=== PATIENT | female | born 1970 | race Caucasian/White ===

== ENCOUNTER → 2017-12-25 08:22 | Outpatient (CLI) | payer OTHER, SELFPAY | PROVIDERS: Family Provider Family Medicine; PCP Family Medicine | DX: Z12.31 Encounter for screening mammogram for malignant neoplasm of breast (principal) | CPT/HCPCS: 77063; 77067 ==

== ENCOUNTER → 2018-11-30 09:55 | Outpatient (CLI) | payer OTHER, SELFPAY ==
--- NOTE | 2018-11-30 09:58 | VDLE_ITS ---
Reason For Study: Pain RIGHT LEFT CFV is compressible, spontaneous, phasic, GSV is normal. competent and demonstrates normal CFV is compressible, spontaneous, phasic, augmentation. competent, and demonstrates normal Procedure augmentation. Exam performed in department. FV is compressible, spontaneous, phasic, A preliminary report was called and/or faxed competent and demonstrates normal to Ana M Todd. augmentation. POP V is compressible, spontaneous, phasic, competent and demonstrates normal augmentation. T/P Trunk is compressible. PTV is compressible. LT PerV is compressible. Lt GSV in the thigh is absent Lt thigh varicosities are dilated and non compressible consistent with acute SVT. Interpretation Summary Deep veins of the left lower extremity are patent and compressible segmentally. There is no evidence of left lower extremity deep vein thrombosis. Valvular competence appears intact within the proximal deep venous system on the left . The left great saphenous vein is absent in the thigh, but patent and compressible below the knee. Acute superficial thrombophlebitis is noted involving superficial varicosities in the left thigh. Ordering Physician: Ana M Todd Referring Physician: Demetri Arnold Performed By: Lisa Juarez, GARTH, RVT
== END ==
PROVIDERS: Family Provider Family Medicine; PCP Family Medicine; Referring Provider Nurse Practitioner Family; Visit Provider Nurse Practitioner Family
DX: M79.605 Pain in left leg (principal)
CPT/HCPCS: 93971

== ENCOUNTER → 2018-12-31 06:57 | Outpatient (CLI) | payer OTHER, SELFPAY ==
--- NOTE | 2018-12-31 07:07 | BI_ITS ---
MAMMOGRAPHY - BILATERAL SCREENING 3-D TOMOSYNTHESIS REASON FOR EXAM: Female, 48 years old. Bilateral Screening 3-D tomosynthesis PERTINENT HISTORY: No significant family history. TECHNIQUE: 2-D mammograms and 3-D Tomosynthesis of the breast (s) were performed. CAD was performed. COMPARISON: 12/25/2017, 12/16/2016 FINDINGS: The breast composition is heterogeneously dense that can obscure small breast masses. Scattered benign calcifications are seen. No dense spiculated masses or suspicious microcalcifications are identified. No architectural distortion is identified. There is no skin thickening or retraction. There has been no significant change since the prior study. BI/SCREEN MAMM (CAD) W/ROCHELLE BILAT IMPRESSION: No mammographic signs of malignancy. Routine yearly mammograms recommended. ASSESSMENT CATEGORY: BIRADS Category 2: Benign. A letter regarding these results will be sent to the patient by the facility within 30 days. FOLLOW UP RECOMMENDATION: Yearly follow up mammogram recommended. (A) Approximately 10% of breast cancers are not detected by mammography. A normal mammogram should not delay biopsy of a clinically suspicious abnormality. Electronically Signed: Frank Noriega MD at 14:21 EDT Tel [phone], Service support ,
== END ==
PROVIDERS: Family Provider Family Medicine; PCP Family Medicine; Referring Provider Nurse Practitioner Family; Visit Provider Nurse Practitioner Family
DX: Z12.31 Encounter for screening mammogram for malignant neoplasm of breast (principal)
CPT/HCPCS: 77063; 77067

== ENCOUNTER → 2020-12-12 16:17 | Outpatient (CLI) | payer OTHER, SELFPAY ==
--- NOTE | 2020-12-12 16:19 | BI_ITS ---
MAMMOGRAPHY - BILATERAL SCREENING REASON FOR EXAM: Female, 50 years old. Routine annual screening examination. PERTINENT HISTORY: Screening TECHNIQUE: Digital bilateral breast rochelle (3D mammographic acquisition) in the CC and MLO projections. 2-D mediolateral oblique (MLO) and craniocaudad (CC) views of both breasts were obtained. CAD: Full Field Digital Mammography with Computer Added Detection was performed. COMPARISON: Previous mammogram obtained on 12/31/2018 FINDINGS: Breast Composition: Heterogeneously dense There are no dominant masses or suspicious calcifications. No other significant abnormalities are identified. BI/SCRN MAMM (CAD)W/ROCHELLE BILAT IMPRESSION: Stable bilateral screening mammogram. Yearly follow-up mammogram recommended. (A) ASSESSMENT CATEGORY: BIRADS Category 1: Negative. A letter regarding these results will be sent to the patient by the facility within 30 days. Approximately 10% of breast cancers are not detected by mammography. A normal mammogram should not delay biopsy of a clinically suspicious abnormality. [id number] Electronically Signed: Zackery Kovacs DO at 15:43 EDT Tel , Service support ,
== END ==
PROVIDERS: PCP Family Medicine; Referring Provider Nurse Practitioner Family; Visit Provider Nurse Practitioner Family
DX: Z12.31 Encounter for screening mammogram for malignant neoplasm of breast (principal)
CPT/HCPCS: 77063; 77067

== ENCOUNTER → 2021-02-09 | Outpatient (CLI) | payer OTHER, SELFPAY | END | disposition home or self-care (01) | LOC: LABSPEC 15:08 | PROVIDERS: PCP Family Medicine; Referring Provider Physician Assistant Surgical; Visit Provider Physician Assistant Surgical | DX: R09.81 Nasal congestion (principal) | CPT/HCPCS: 87635; U0005; U0003 ==

== ENCOUNTER → 2021-12-24 | Outpatient (CLI) | payer OTHER, SELFPAY ==
--- NOTE | 2021-12-24 13:20 | BI_ITS ---
MAMMOGRAPHY - BILATERAL SCREENING REASON FOR EXAM: Female, 51 years old. Routine annual screening examination. PERTINENT HISTORY: Non-contributory. TECHNIQUE: Digital bilateral breast rochelle (3D mammographic acquisition) in the CC and MLO projections. 2-D mediolateral oblique (MLO) and craniocaudad (CC) views of both breasts were obtained. CAD: Full Field Digital Mammography with Computer Added Detection was performed. COMPARISON: Mammogram from 12/12/2020, 12/31/2018. FINDINGS: Breast Composition: The breasts are heterogeneously dense, which may obscure small masses. There are no dominant masses or suspicious calcifications. No other significant abnormalities are identified. There has been no significant change since the prior study. BI/SCRN MAMM (CAD)W/ROCHELLE BILAT IMPRESSION: Stable bilateral screening mammogram. Yearly follow-up mammogram recommended. (A) ASSESSMENT CATEGORY: BIRADS Category 1: Negative. A letter regarding these results will be sent to the patient by the facility within 30 days. Approximately 10% of breast cancers are not detected by mammography. A normal mammogram should not delay biopsy of a clinically suspicious abnormality. Electronically Signed: Phillip Nuñez, at 16:40 EDT ,
== END | disposition home or self-care (01) ==
LOC: OPBI 13:16
PROVIDERS: PCP Family Medicine; Visit Provider Nurse Practitioner Family
DX: Z12.31 Encounter for screening mammogram for malignant neoplasm of breast (principal)
CPT/HCPCS: 77063; 77067

== ENCOUNTER → 2022-12-24 | Outpatient (CLI) | payer OTHER, SELFPAY ==
--- NOTE | 2022-12-24 08:34 | BI_ITS ---
MAMMOGRAPHY - BILATERAL SCREENING REASON FOR EXAM: Female, 52 years old. Routine annual screening examination. PERTINENT HISTORY: Non-contributory. TECHNIQUE: Digital bilateral breast rochelle (3D mammographic acquisition) in the CC and MLO projections. 2-D mediolateral oblique (MLO) and craniocaudad (CC) views of both breasts were obtained. CAD: Full Field Digital Mammography with Computer Added Detection was performed. COMPARISON: Comparison is made with prior study December 24, 2021 and December 12, 2020. FINDINGS: Breast Composition: The breasts are heterogeneously dense, which may obscure small masses. There are no dominant masses or suspicious calcifications. Stable small benign-appearing bilateral axillary lymph nodes. No other significant abnormalities are identified. There has been no significant change since the prior study. BI/SCRN MAMM (CAD)W/ROCHELLE BILAT IMPRESSION: Stable bilateral screening mammogram. Yearly follow-up mammogram recommended. (A) ASSESSMENT CATEGORY: BIRADS Category 2: Benign. A letter regarding these results will be sent to the patient by the facility within 30 days. Approximately 10% of breast cancers are not detected by mammography. A normal mammogram should not delay biopsy of a clinically suspicious abnormality. [id number] Electronically Signed: Rober Ortiz MD at 10:30 EDT ,
== END | disposition home or self-care (01) ==
LOC: OPBI 08:32
PROVIDERS: PCP Family Medicine; Referring Provider Nurse Practitioner Family; Visit Provider Nurse Practitioner Family
DX: Z12.31 Encounter for screening mammogram for malignant neoplasm of breast (principal)
CPT/HCPCS: 77063; 77067

== ENCOUNTER → 2024-01-02 | Outpatient (CLI) | payer OTHER, SELFPAY ==
--- NOTE | 2024-01-02 07:18 | BI_ITS ---
MAMMOGRAPHY - BILATERAL SCREENING REASON FOR EXAM: Female, 53 years old. Routine annual screening examination. PERTINENT HISTORY: Non-contributory. TECHNIQUE: Digital bilateral breast rochelle (3D mammographic acquisition) in the CC and MLO projections. 2-D mediolateral oblique (MLO) and craniocaudad (CC) views of both breasts were obtained. CAD: Full Field Digital Mammography with Computer Added Detection was performed. COMPARISON: Comparison is made with prior study of December 24, 2022 and December 24, 2021. FINDINGS: Breast Composition: The breasts are heterogeneously dense, which may obscure small masses. There are no dominant masses or suspicious calcifications. No other significant abnormalities are identified. There has been no significant change since the prior study. BI/SCRN MAMM (CAD)W/ROCHELLE BILAT IMPRESSION: Stable bilateral screening mammogram. Yearly follow-up mammogram recommended. (A) ASSESSMENT CATEGORY: BIRADS Category 1: Negative. A letter regarding these results will be sent to the patient by the facility within 30 days. Approximately 10% of breast cancers are not detected by mammography. A normal mammogram should not delay biopsy of a clinically suspicious abnormality. [id number] Electronically Signed: Rober Ortiz MD at 8:41 EDT ,
== END | disposition home or self-care (01) ==
LOC: OPBI 07:16
PROVIDERS: PCP Family Medicine; Referring Provider Nurse Practitioner Family; Visit Provider Nurse Practitioner Family
DX: Z12.31 Encounter for screening mammogram for malignant neoplasm of breast (principal)
CPT/HCPCS: 77063; 77067

== ENCOUNTER → 2025-01-07 | Outpatient (CLI) | payer BC, SELFPAY ==
--- NOTE | 2025-01-07 07:35 | BI_ITS ---
EXAM: SCRN MAMM (CAD)W/ROCHELLE BILAT DATE: 01/07/2025 CLINICAL HISTORY: F, Age 54 y/o , SCREENING TECHNIQUE: SCRN MAMM (CAD)W/ROCHELLE BILAT COMPARISON: Prior exam(s) dated 01/02/2024, 12/24/2022, 12/24/2021. FINDINGS: TISSUE DENSITY: The breasts are heterogeneously dense, which may obscure small masses. The mammogram demonstrates that the patient has dense breasts. Supplemental screening with whole breast ultrasound or MRI may be considered for further evaluation. Bilateral Breast Mammographic Findings: No significant masses, calcifications or other abnormalities are identified. BI/SCRN MAMM (CAD)W/ROCHELLE BILAT IMPRESSION: There is no mammographic evidence of malignancy. OVERALL FINAL ASSESSMENT BI-RADS 1: NEGATIVE. RECOMMENDATION: Routine annual follow-up in 1 Year. A letter with findings and recommendations will be mailed to the patient. Reading Location: [id number]
--- OUTSIDE RECORDS SUMMARY | 2025-01-07 07:44 | XMS RPT_ITS | CCD ---
Author Organization [facility] Care Team Providers Care Passenger T[employer] Inspector Name Role Phone Demetri Arnold Primary Care Provider [phone] Required, No Pcp Unavailable Unavailable Chidi Jack Unavailable NORMA WOO Attending Unavailable NORMA WOO Admitting Unavailable NORMA WOO Primary Care Unavailable NORMA WOO Attending Unavailable NORMA WOO Admitting Unavailable NORMA WOO Primary Care Unavailable Demetri Arnold MD Primary Care Provider [phone] DEMETRI ARNOLD Primary Care Unavailable LURDES AGUSTIN Attending Unavailable LURDES AGUSTIN Referring Unavailable DEMETRI ARNOLD Primary Care Unavailable Demetri Arnold DO Primary Care Provider Demetri Arnold MD Primary Care Provider Demetri Arnold DO Primary Care Provider PARVEEN TOBIAS Referring Unavailable DEMETRI ARNOLD Primary Care Unavailable Demetri Arnold DO Primary Care Provider Demetri Arnold MD Primary Care Provider [phone] Manish Vazquez MD Primary Care Provider Manish Vazquez MD Primary Care Provider [phone] Demetri Arnold DO Primary Care Provider JERRY PERALES Attending Unavailable DEMETRI ARNOLD Primary Care Unavailable Demetri Arnold MD Primary Care Provider [facility] Primary Care Provider Demetri Arnold MD Primary Care Provider MANISH VAZQUEZ Primary Care Unavailable CLAYTON, DEMETRI Attending Unavailable CLAYTON, DEMETRI Primary Care Unavailable PACI, MARANDA Us Referring Unavailable CLAYTON, DEMETRI L Primary Care Unavailable RIA FLANAGAN Referring U navailable CLAYTON, DEMETRI L Primary Care Unavailable CLAYTON, DEMETRI B Primary Care Unavailable SYSTEM, PROVIDER NOT IN Attending Unavaila ble CLAYTON, DEMETRI L Primary Care Unavailable PACI, MARANDA Magen Attending Unavailable CLAYTON, DEMETRI L Primary Care Unavailable ANGIE ROTH Attending Unavailable Micheal THOMAS Referring Unava ilable CLAYTON, DEMETRI L Primary Care Unavailable Micheal THOMAS Referring Unava ilable PACI, MARANDA Magen Attending Unavailable CLAYTON, DEMETRI L Primary Care Unavailable CLAYTON, DEMETRI L Primary Care Unavailable PACI, MARANDA Magen Attending Unavailable PACI, MARANDA Magen Referring Unavailable CLAYTON, DEMETRI L Primary Care Unavailable ANGIE ROTH Attending Unavailable PACI, MARANDA Magen Attending Unavailable CLAYTON, DEMETRI L Primary Care Unavailable PACI, MARANDA Magen Referring Unavailable CLAYTON, DEMETRI L Primary Care Unavailable PACI, MARANDA Magen Referring Unavailable BARRY PRESCOTT Attending Unavailable CLAYTON, DEMETRI L Primary Care Unavailable CLAYTON, DEMETRI L Primary Care Unavailable Micheal THOMAS Referring Unava ilable FRANKLIN, SEJAL Attending Unavailable TANANA LOGAN K Admitting Unavailable Micheal THOMAS Referring Unava ilable CLAYTON, DEMETRI L Primary Care Unavailable ANGIE ROTH Attending Unavailable CLAYTON, DEEMTRI L Primary Care Unavailable STANEFF, ADALI Attending Unavailable CLAYTON, DEMETRI L Primary Care Unavailable TREY CERON Attending Unavailable CLAYTON, DEMETRI L Primary Care Unavailable STANEFF, ADALI Attending Unavailable CLAYTON, DEMETRI L Primary Care Unavailable TREY CERON Attending Unavailable Micheal THOMAS Attending Unava ilable PACI, MARANDA Us Referring Unavailable CLAYTON, DEMETRI L Primary Care Unavailable Micheal THOMAS Referring Unava ilable STANEFF, ADALI Attending Unavailable CLAYTON, DEMETRI L Primary Care Unavailable STANEFF, ADALI Referring Unavailable STANEFF, ADALI Attending Unavailable CLAYTON, DEMETRI L Primary Care Unavailable DEMETRI ARNOLD Primary Care Unavailable ANA M SOTELO Attending Unavailable DEMETRI ARNOLD Primary Care Unavailable ANGIE ROTH Attending Unavailable Demetri Arnold Primary Care Unavailable Ana M Sotelo NP Referring Unavailable Peyton BRIAR CUTTER, Ana M Attending Unavailable Medications Current Medications Medication Drug Class(es) Dates Sig (Normalized) Sig (Original) acetaminophen 33.3 mg/ml oral solution (20 sources) Start: 07-14-2024 End: 08-27-2024 take 500 mg by mouth every six hours as needed acetaminophen (TYLENOL) 500 mg/15 mL liqd Take 15 mL by mouth every 6 hours as needed for pain. Do not exceed 5 doses in 24 hours. 1000 mL 07/14/2024 08/27/2024 Discontinued (Course of therapy completed) Start: 10-16-2023 End: 12-16-2023 take 500 mg by mouth every six hours as needed acetaminophen (TYLENOL) 500 mg/15 mL liqd Take 15 mL by mouth every 6 hours as needed for pain. Do not exceed 5 doses in 24 hours. 1000 mL 0 10/16/2023 12/16/2023 Discontinued Calcium Carbonate-Vit D-Min (CALCIUM 1200 PO) (2 sources) Calcium Carbonat e-Vit D-Min (CALCIUM 1200 PO) Take by mouth daily 0 Active calcium citrate 1000 mg oral tablet (7 sources) Start: 03-22-2013 take 1000 mg by mouth once daily Citracal Active 1000 MG PO DAILY March 22, 2013 1:00am take 1200 mg by mout h once daily CALCIUM CITRATE PO Take by mouth once daily. 1200 mg Active End: 07-04-2022 take 1 tablet by mouth once daily calcium citrate (Calcitrate) 950 (200 Ca) MG tablet Take 950 mg by mouth daily. 0 07/04/2022 Discontinued (Therapy completed) ciprofloxacin 500 mg oral tablet (1 source) Quinolone Antimicrobial Start: 07-29-2024 End: 08-03-2024 take 1 tablet by mouth twice daily ciprofloxacin HCl (CIPRO) 500 mg tablet Take 1 tablet by mouth two times a day for 5 days. 10 tablet 07/29/2024 08/03/2024 Active ergocalciferol 1.25 mg oral capsule (20 sources) Provitamin D2 Compound Start: 08-26-2017 End: 06-04-2024 take 1 capsule by mouth every week ergocalciferol, vitamin D2, (DRISDOL) 50,000 unit capsule Take 1 capsule by mouth once each week. 08/26/2017 Active Start: 09-23-2013 take 1 capsule by [facility] every week Ergocalciferol (Vitamin D2) (Vitamin D) 50,000 UNIT capsule Active 68682 UNIT PO Q7D September 23, 2013 12:00am Comment on above: Take 1 capsule by [facility] once each week. famotidine 20 mg oral tablet (8 sources) Histamine-2 Receptor Antagonist Start: 07-30-2013 take 20 mg by mouth twice daily Famotidine Active 20 MG PO TWICE A DAY July 30, 2013 12:00am Start: 03-22-2013 End: 03-30-2013 take 20 mg by mouth once daily Famotidine Discontinued 20 MG PO DAILY March 22, 2013 1:00am March 30, 2013 8:33am ferrous sulfate 325 mg oral tablet (20 sources) Start: 07-30-2013 Ferrous Sulfat e (Iron Supplement) 325 MG tablet Active 65 MG PO TWICE A DAY July 30, 2013 12:00am End: 06-11-2024 take 1 tablet by mouth in the morning ferrous sulfate 325 (65 Fe) MG tablet Take 65 mg by mouth in the morning and 65 mg in the evening. 06/11/2024 Discontinued (Med list cleanup) take 1 tablet by babatunde th twice daily ferrous sulfate 325 (65 FE) MG EC tablet Take 325 mg by mouth 2 times daily 0 Active Comment on above: Take 65 mg by mouth twice daily. levothyroxine sodium 0.1 mg oral tablet (20 sources) l-Thyroxine Start: 3 End: take 1 tablet by mouth once daily levothyroxine (SYNTHROID) 100 mcg tablet Take 1 tablet by mouth once daily. 04/02/2017 Active take 1 tablet by mouth once bolivar y Synthroid 100 mcg (0.1 mg) oral tablet ; 1 tab(s) orally once a day Quantity: 0 Refills: 0 Ordered: 12-Feb-2021 Tia Barros Generic Substitution Allowed Comment on above: Take 1 tablet by babatunde th once daily. metroNIDAZOLE 500 mg oral tablet (1 source) Nitroimidazole Antimicrobial Start: 07-30-19 End: 08-04-19 take 1 tablet by mouth four times daily metroNIDAZOLE (FLAGYL) 500 mg tablet Take 1 tablet by mouth four times daily for 5 days. 20 tablet 07/29/2024 08/03/2024 Active Multiple Vitamin (MULTI VITAMIN DAILY PO) (2 sources) take 1 tablet by mouth once daily Multiple Vitamin (MULTI VITAMIN DAILY PO) Take 1 tablet by mouth daily 0 Active Multiple Vitamin (multivitamin) capsule (2 sources) take 1 capsule by mouth once daily Multiple Vitamin (multivitamin) capsule Take 1 capsule by mouth daily. Active multivitamin capsule (2 sources) take 1 capsule by mouth once daily multivitamin capsule Take 1 capsule by mouth daily . 0 Active Multivitamin capsule (20 sources) take 1 capsule by mouth once daily Multivitamin capsule Take 1 capsule by mouth once daily. Suspended take 1 capsule by mouth once amrik ly Multivitamin capsule Take 1 capsule by mouth once daily. Active take 1 capsule by mouth once amrik ly Multivitamin capsule Take 1 capsule by mouth once daily. 0 Active Comment on above: Take 1 capsule by mo [facility] once daily. Multivitamin With Folic Acid (Thera) 1 TABLET tablet (4 sources) Start: 03-22-2013 take 1 tablet by mouth once daily Multivitamin With Folic Acid (Thera) 1 TABLET tablet Active 1 TABLET PO DAILY March 22, 2013 12:00am Start: 03-22-2013 take 1 tablet by [facility] once daily Multivitamin With Folic Acid (Thera) 1 TABLET tablet Active 1 TABLET PO DAILY March 22, 2013 1:00am omeprazole 40 mg delayed release oral capsule (20 sources) Proton Pump Inhibitor Start: 10-16-2023 End: 10-12-2024 take 1 capsule by mouth twice daily 30 minutes before breakfast omeprazole (PRILOSEC) 40 mg capsule Take 1 capsule by mouth two times a day. Open capsule sprinkle over applesauce and take 30 minutes before breakfast and 30 minutes before dinner 180 capsule 07/14/2024 Active 72 hr scopolamine 0.0139 mg/hr transdermal system (20 sources) Anticholinergic Start: 07-14-2024 End: 08-27-2024 scopolamine (TRANSDERM-SCOP) patch 1.5 mg/72 hr (delivers 1 mg over 3 days) Apply 1 Patch as directed every 72 hours. 4 Patch 07/14/2024 08/27/2024 Discontinued (Course of therapy completed) Start: 10-16-2023 End: 12-16-2023 scopolamine (TRANSDERM-SCOP) patch 1.5 mg/72 hr (delivers 1 mg over 3 days) Apply 1 Patch as directed every 72 hours. 4 Patch 0 10/16/2023 12/16/2023 Discontinued vitamin b12 1 mg sublingual tablet (4 sources) Vitamin B12 Start: 03-22-2013 Cyanocobalamin (Vitamin B-12) Active 2500 MCG SL EVERY OTHER DAY March 22, 2013 1:00am zolpidem tartrate 10 mg oral tablet (4 sources) gamma-Aminobuty perla Acid-ergic Agonist Start: 03-22-2013 take 1 tablet by mouth at bedtime as needed Zolpidem (Ambien) 10 MG tablet Active 10 MG PO AT BEDTIME NEEDED March 22, 2013 1:00am Completed/Discontinued Medications Medication Drug Class(es) Dates Sig (Normalized) Sig (Original) 12 hr buPROPion hydrochloride 150 mg extended release oral tablet (5 sources) Aminoketone Start: 07-18-2023 End: 10-16-2023 take 1 tablet by mouth twice daily buPROPion SR (WELLBUTRIN SR) 150 mg 12 hr tablet Take 1 tablet by mouth two times a day. 180 tablet 0 07/18/2023 10/16/2023 Discontinued (Clinical Decision) Comment on above: Take 1 tablet by babatunde th two times a day. calcium carbonate 1500 mg oral tablet (15 sources) End: 05-14-2022 take 1 tablet by mouth in the morning calcium carbonate 1500 (600 Ca) MG tablet Take 1,200 Units by mouth in the morning. 0 05/14/2022 Discontinued (Med list cleanup) End: 02-15-2022 take 1 tablet by mouth once daily calcium carbonate (CALTRATE) 600 mg calcium (1,500 mg) tab Take 1,200 Units by mouth once daily. 0 02/15/2022 Discontinued Comment on above: Take 1,200 Units by mouth once daily. calcium citrate/vitamin D3 (CALCIUM CITRATE + D ORAL) (20 sources) End: 12-16-2023 take 1200 mg by mouth once daily calcium citrate/vitamin D3 (CALCIUM CITRATE + D ORAL) Take 1,200 mg by mouth once daily. 0 12/16/2023 Discontinued take 1200 mg by mouth once daily calcium citrate/vitamin D3 (CALCIUM CITRATE + D ORAL) Take 1,200 mg by mouth once daily. 0 Active Comment on above: Take 1,200 mg by babatunde th once daily. 1 ml fentaNYL 0.05 mg/ml injection (1 source) Opioid Agonist Start : 07-28 End: 07-29 take 50 ug intravenously every two hours as needed 50 mcg, INTRAVENOUS, EVERY 2 HOURS NEEDED, Starting on Fri07/28/24 at 1448, Until Fri07/29/24 at 0207, Moderate Pain (4-6) - Parenteral, Recovery or Phase I (only) fosaprepitant 150 mg in NaCl 0.9% 250 mL (EMEND) (1 source) Start : 07-28 End: 07-28 150 mg, INTRAVENOUS, Administer over 30 Minutes, ONCE, 1 dose, On Fri07/28/24 at 1130, Approx Total Volume: mL EXP: Refrigerate, Preprocedure Hydroxychloroquine (20 sources) Antimalarial, Antirheumatic Agent Start : 03-29 End: 06-11 take 1 tablet by mouth once daily at mealtime Hydroxychloroquine Sulfate 300 MG tablet TAKE 1 TABLET BY MOUTH WITH FOOD or milk ONCE DAILY 03/29/2023 06/11/2024 Discontinued (Med list cleanup) Start: 03-29-2023 take 1 tablet by babatunde th once daily at mealtime Hydroxychloroquine Sulfate 300 MG tablet TAKE 1 TABLET BY MOUTH WITH FOOD or milk ONCE DAILY 03/29/2023 Active Start: 03-29-2023 take 1 tablet by babatunde th once daily at mealtime Hydroxychloroquine Sulfate 300 MG tablet TAKE 1 TABLET BY MOUTH WITH FOOD or milk ONCE DAILY 0 03/29/2023 Active Start: 06-16-2021 End: 05-21-2023 hydroxychloroquine (Plaqueni l) 200 MG tablet Take 300 mg by mouth in the morning. 0 06/16/2021 05/21/2023 Discontinued (Therapy completed) Start: 10-19-2018 End: 12-16-2023 take 1 tablet by mouth once daily at mealtime hydrOXYchloroQUINE (PLAQUENIL) 200 mg tablet TAKE 1 & 1/2 TABLETS WITH FOOD OR MILK ONCE A DAY ORALLY 30 DAYS 0 06/16/2021 Active Comment on above: Take 300 mg by mouth once daily. Take 200 mg by mouth once daily. mupirocin 0.02 mg/mg topical ointment (1 source) RNA Synthetase Inhibitor Antibacterial Start: 023 End: 023 mupirocin (Bactroban) 2 % ointment APPLY 2X DAILY TO AFFECTED AREA INSIDE NOSE UNTIL AREA RESOLVES 0 05/27/2022 07/04/2022 Discontinued (Therapy completed) 2 ml ondansetron 2 mg/ml injection (20 sources) Serotonin-3 Receptor Antagonist Start: 025 End: take 4 mg intravenously every six hours as needed 4 mg, INTRAVENOUS, EVERY 6 HOURS NEEDED, Starting on Fri07/28/24 at 1448, Until Makayla 07/29/24 at 0207, Nausea/Vomiting - First Line - Parenteral, Give IV push over 2 minutes, Recovery or Phase I (only) Start: 07-28-2024 End: 07-28-2024 8 mg, INTRAVENOUS, ONCE, 1 d ose, On Fri07/28/24 at 1130, Give IV push over 2 minutes, Preprocedure Start: 07-14-2024 End: 08-27-2024 take 1 tablet by mouth every eight hours as needed ondansetron orally disintegrating (ZOFRAN ODT) 8 mg disintegrating tablet Take 1 tablet by mouth every 8 hours as needed for nausea/vomiting. 20 tablet 07/14/2024 08/27/2024 Discontinued (Course of therapy completed) Start: 10-16-2023 End: 12-16-2023 take 1 tablet by mouth every eight hours as needed ondansetron orally disintegrating (ZOFRAN ODT) 8 mg disintegrating tablet Take 1 tablet by mouth every 8 hours as needed for nausea/vomiting. 20 tablet 0 10/16/2023 12/16/2023 Discontinued prochlorperazine 5 mg/ml injectable solution (1 source) Phenothiazine Start: 07-28-2024 End: 07-29-2024 take 10 mg intravenously every four hours as needed 10 mg, INTRAVENOUS, EVERY 4 HOURS NEEDED, Starting on 07/28/24 at 1448, Until Makayla 07/29/24 at 0207, Nausea/Vomiting - Second Line - Parenteral, Protect From Light, Recovery or Phase I (only) semaglutide, weight loss, (WEGOVY) 0.25 mg/0.5 mL pen injector (5 sources) Start: 06-03-2023 End: 10-16-2023 inject 0.5 mL by subcutaneous injection every week semaglutide, weight loss, (WEGOVY) 0.25 mg/0.5 mL pen injector Inject 0.5 mL subcutaneously one time a week. 4 mL 0 06/03/2023 10/16/2023 Discontinued (Availability) Start: 06-03-2023 inject 0.5 mL by sub cutaneous injection every week semaglutide, weight loss, (WEGOVY) 0.25 mg/0.5 mL pen injector Inject 0.5 mL subcutaneously one time a week. 4 mL 0 06/03/2023 Active Comment on above: Inject 0.5 mL subcut aneously one time a week. sucralfate 1000 mg oral tablet (20 sources) Aluminum Complex Start: 07-16-2024 End: 10-20-2024 CARAFATE [address] 1 tablet in cup with 15ml-30ml warm water. Allow to dissolve into a slurry and drink. Repeat FOUR times daily as directed. Start on 07/30/24. 120 tablet 2 07/16/2024 10/20/2024 Discontinued (Course of therapy completed) Start: 07-14-2024 End: 10-12-2024 take 10 mL by mouth four times daily sucralfate (CARAFATE) 100 mg/mL suspension Take 10 mL by mouth four times daily. start on 07/30/2024 1200 mL 2 07/14/2024 07/16/2024 Discontinued Start: 10-23-2023 End: 02-22-2024 take 1 tablet by mouth four times daily sucralfate (CARAFATE) 1 gram tablet Take 1 tablet by mouth four times daily. 360 tablet 11/24/2023 02/22/2024 Start: 10-16-2023 End: 01-14-2024 take 10 mL by mouth four times daily sucralfate (CARAFATE) 100 mg/mL suspension Take 10 mL by mouth four times daily. 1200 mL 2 10/16/2023 10/23/2023 Discontinued (Cost of medication) topiramate 25 mg oral tablet (13 sources) Start: 02-15-2022 End: 12-09-2022 topiramate (TOPAMAX) 25 mg tablet Take 1 tablet with dinner. After 2 weeks, if tolerating well, increase to 2 tablets with dinner. 60 tablet 2 02/15/2022 12/09/2022 Discontinued Comment on above: Take 1 tablet with d inner. After 2 weeks, if tolerating well, increase to 2 tablets with dinner. Problems Active Problems Problem Classification Problem Date Documented Da te Episodic/Chronic Administrative/social admission (5 sources) Persons encountering health services in other specified circumstances; Translations: [Dietary counseling and surveillance] Onset: 4 Episodic Complications of surgical procedures or medical care (20 sources) Complication of surgical procedure; Translations: [Other complications of other bariatric procedure] Onset: 4 Episodic E Codes: Adverse effects of medical care (2 sources) Surgical operation with anastomosis, bypass or graft as the cause of abnormal reaction of the patient, or of later complication, without mention of misadventure at the time of the procedure; Translations: [Complications of gastric bypass surgery] Onset: 5 Episodic Esophageal disorders (20 sources) Gastroesophageal reflux disease; Translations: [Gastro-esophageal reflux disease without esophagitis] Onset: 5 Resolved: 3 12-13-2014 Chronic Fracture of lower limb (11 sources) Closed fracture of distal tibia and distal fibula; Translations: [Other fracture of upper and lower end of right fibula, initial encounter for closed fracture] Episodic Miscellaneous mental health disorders (5 sources) Psychosomatic factor in physical condition; Translations: [Psychological and behavioral factors associated with disorders or diseases classified elsewhere] 11-06-2023 Chronic Nutritional deficiencies (20 sources) Vitamin D deficiency; Translations: [Vitamin D deficiency, unspecified] Onset: 5 12-13-2014 Chronic Osteoarthritis (20 sources) Osteoarthritis; Translations: [Unspecified osteoarthritis, unspecified site] Onset: 5 12-13-2014 Chronic Other female genital disorders (20 sources) Complex endometrial hyperplasia; Translations: [Benign endometrial hyperplasia] Onset: 4 07-01-2019 Chronic Other gastrointestinal disorders (12 sources) Abnormal intestinal absorption; Translations: [Intestinal malabsorption, unspecified] Chronic Other gastrointestinal disorders (1 source) Intestinal malabsorption, unspecified; Translations: [Impaired intestinal absorption] Onset: 5 Chronic Other gastrointestinal disorders (1 source) H/O: GIT by-pass; Translations: [Bariatric surgery status] Episodic Other gastrointestinal disorders (9 sources) Bariatric surgery status; Translations: [S/P gastric bypass] Onset: 2 Episodic Other gastrointestinal disorders (2 sources) History of Armijo's esophagus; Translations: [Personal history of other diseases of the digestive system] Episodic Other gastrointestinal disorders (8 sources) History of bariatric surgical procedure; Translations: [Bariatric surgery status] 10-16-2023 Episodic Other injuries and conditions due to external causes (2 sources) Injury of right ankle; Translations: [Unspecified injury of right ankle, initial encounter] Episodic Other liver diseases (10 sources) Steatosis of liver; Translations: [Fatty (change of) liver, not elsewhere classified] 03-25-2023 Chronic Other liver diseases (1 source) Fatty (change of) liver, not elsewhere classified; Translations: [Hepatic steatosis] Onset: 5 Chronic Other nervous system disorders (3 sources) Walking difficulty due to ankle and foot; Translations: [Difficulty in walking, not elsewhere classified] Chronic Other non-traumatic joint disorders (4 sources) Acute ankle pain; Translations: [Pain in right ankle and joints of right foot] Episodic Other nutritional; endocrine; and metabolic disorders (20 sources) Hypocalcemia; Translations: [Hypocalcemia] Onset: 6 Resolved: 3 01-04-2016 Chronic Other nutritional; endocrine; and metabolic disorders (20 sources) Morbid obesity; Translations: [Morbid (severe) obesity due to excess calories] Onset: 0 12-13-2019 Chronic Other nutritional; endocrine; and metabolic disorders (14 sources) Severe obesity; Translations: [Morbid (severe) obesity due to excess calories] Chronic Other nutritional; endocrine; and metabolic disorders (1 source) Obese class III; Translations: [Morbid (severe) obesity due to excess calories] Chronic Other nutritional; endocrine; and metabolic disorders (2 sources) Morbid (severe) obesity due to excess calories; Translations: [Class 3 severe obesity due to excess calories without serious comorbidity with body mass index (BMI) of 40.0 to 44.9 in adult ([facility])] Onset: 2 Chronic Other nutritional; endocrine; and metabolic disorders (1 source) Body mass index (BMI) 40.0-44.9, adult; Translations: [Class 3 severe obesity due to excess calories without serious comorbidity with body mass index (BMI) of 40.0 to 44.9 in adult ([facility])] Onset: 2 Chronic Other nutritional; endocrine; and metabolic disorders (5 sources) Body mass index 40+ - severely obese; Translations: [Morbid (severe) obesity due to excess calories] Chronic Other nutritional; endocrine; and metabolic disorders (18 sources) Obesity caused by energy imbalance; Translations: [Other obesity due to excess calories] 10-16-2023 Chronic Other nutritional; endocrine; and metabolic disorders (2 sources) Body mass index 30+ - obesity; Translations: [Body mass index (BMI) 39.0-39.9, adult] 10-16-2023 Chronic Other nutritional; endocrine; and metabolic disorders (3 sources) Other specified metabolic disorders; Translations: [Other disorders of lipoid metabolism] Onset: 5 01-22-2024 Chronic Other nutritional; endocrine; and metabolic disorders (2 sources) Obesity; Translations: [Class 1 obesity with body mass index (BMI) of 33.0 to 33.9 in adult, unspecified obesity type, unspecified whether serious comorbidity present] 04-21-2024 Chronic Other nutritional; endocrine; and metabolic disorders (4 sources) Other obesity due to excess calories; Translations: [Class 1 obesity due to excess calories with body mass index (BMI) of 31.0 to 31.9 in adult, unspecified whether serious comorbidity present] Onset: 4 Chronic Other nutritional; endocrine; and metabolic disorders (1 source) Body mass index (BMI) 31.0-31.9, adult; Translations: [Class 1 obesity due to excess calories with body mass index (BMI) of 31.0 to 31.9 in adult, unspecified whether serious comorbidity present] Onset: 5 Chronic Other nutritional; endocrine; and metabolic disorders (1 source) Body mass index (BMI) 34.0-34.9, adult; Translations: [Class 1 obesity due to excess calories with body mass index (BMI) of 34.0 to 34.9 in adult, unspecified whether serious comorbidity present] Onset: 5 Chronic Other nutritional; endocrine; and metabolic disorders (1 source) Body mass index (BMI) 35.0-35.9, adult; Translations: [Class 2 severe obesity due to excess calories with serious comorbidity and body mass index (BMI) of 35.0 to 35.9 in adult ([facility])] Onset: 5 Chronic Other nutritional; endocrine; and metabolic disorders (1 source) Body mass index (BMI) 33.0-33.9, adult; Translations: [Class 1 obesity due to excess calories with body mass index (BMI) of 33.0 to 33.9 in adult, unspecified whether serious comorbidity present] Onset: 5 Chronic Other nutritional; endocrine; and metabolic disorders (1 source) Body mass index (BMI) 38.0-38.9, adult; Translations: [Class 2 obesity due to excess calories with body mass index (BMI) of 38.0 to 38.9 in adult, unspecified whether serious comorbidity present] Onset: 4 Chronic Other nutritional; endocrine; and metabolic disorders (8 sources) Weight gain; Translations: [Abnormal weight gain] Episodic Other nutritional; endocrine; and metabolic disorders (5 sources) Weight increased; Translations: [Abnormal weight gain] 05-17-2024 Episodic Other nutritional; endocrine; and metabolic disorders (2 sources) Abnormal weight gain; Translations: [Weight gain following gastric bypass surgery] Onset: 5 Episodic Other screening for suspected conditions (not mental disorders or infectious disease) (20 sources) Patient encounter status; Translations: [Encounter for screening mammogram for malignant neoplasm of breast] Onset: 5 Episodic Other upper respiratory disease (4 sources) Respiratory tract congestion; Translations: [Nasal congestion] 02-09-2021 Episodic Spondylosis; intervertebral disc disorders; other back problems (1 source) Acute low back pain; Translations: [Acute bilateral low back pain without sciatica] 06-05-2023 Episodic Systemic lupus erythematosus and connective tissue disorders (20 sources) Autoimmune disease; Translations: [Systemic involvement of connective tissue, unspecified] Onset: 9 11-09-2018 Chronic Thyroid disorders (20 sources) Hypothyroidism; Translations: [Hypothyroidism, unspecified] Onset: 5 12-13-2014 Chronic Unclassified (2 sources) ANTIBODY INFUSION 02-12-2021 Comment on above: ANTIBODY INFUSION Unclassified (1 source) Reassessment Onset: 5 Unclassified (1 source) Class 1 obesity due to excess calories with body mass index (BMI) of 31.0 to 31.9 in adult, unspecified whether serious comorbidity present; Translations: [Class 1 obesity due to excess calories with body mass index (BMI) of 31.0 to 31.9 in adult, unspecified whether serious comorbidity present] Onset: 5 Unclassified (1 source) Class 1 obesity due to excess calories with body mass index (BMI) of 34.0 to 34.9 in adult, unspecified whether serious comorbidity present; Translations: [Class 1 obesity due to excess calories with body mass index (BMI) of 34.0 to 34.9 in adult, unspecified whether serious comorbidity present] Onset: 5 Unclassified (1 source) Class 2 severe obesity due to excess calories with serious comorbidity and body mass index (BMI) of 35.0 to 35.9 in adult (HCC); Translations: [Class 2 severe obesity due to excess calories with serious comorbidity and body mass index (BMI) of 35.0 to 35.9 in adult (HCC)] Onset: 5 Unclassified (1 source) Class 1 obesity due to excess calories with body mass index (BMI) of 33.0 to 33.9 in adult, unspecified whether serious comorbidity present; Translations: [Class 1 obesity due to excess calories with body mass index (BMI) of 33.0 to 33.9 in adult, unspecified whether serious comorbidity present] Onset: 5 Past or Other Problems Problem Classification Problem Date Documented Da te Episodic/Chronic Deficiency and other anemia (20 sources) Anemia; Translations: [Anemia, unspecified] Onset: 12-13-2014 Resolved: 05-14-2022 12-13-2014 Episodic Deficiency and other anemia (20 sources) Acquired iron deficiency anemia due to decreased absorption; Translations: [Other iron deficiency anemias] Onset: 05-14-2022 05-14-2022 Episodic Immunizations and screening for infectious disease (20 sources) Anti-nuclear factor positive; Translations: [Other specified abnormal immunological findings in serum] Onset: 02-09-2017 Resolved: 05-21-2023 02-09-2017 Episodic Nausea and vomiting (1 source) Nausea with vomiting, unspecified; Translations: [NANDV (nausea and vomiting)] Onset: 07-28-2024 Episodic Nonmalignant breast conditions (20 sources) Cellulitis of breast; Translations: [Mastitis without abscess] Onset: 07-06-2019 Resolved: 05-21-2023 07-06-2019 Episodic Other connective tissue disease (20 sources) Swelling of finger joint; Translations: [Effusion, left hand] Onset: 06-28-2018 Resolved: 05-21-2023 06-28-2018 Episodic Other connective tissue disease (20 sources) Muscle weakness; Translations: [Other symptoms and signs involving the musculoskeletal system] Onset: 11-19-2019 11-19-2019 Episodic Other ear and sense organ disorders (1 source) Impacted cerumen in right ear; Translations: [Impacted cerumen, right ear] Episodic Other gastrointestinal disorders (20 sources) History of bypass of stomach; Translations: [Bariatric surgery status] Onset: 02-09-2017 11-13-2017 Episodic Other lower respiratory disease (2 sources) Cough; Translations: [Cough] Onset: 06-28-2018 Resolved: 07-28-2018 07-28-2018 Episodic Other nervous system disorders (20 sources) Abnormal gait; Translations: [Unspecified abnormalities of gait and mobility] Onset: 11-19-2019 Resolved: 12-09-2022 11-19-2019 Episodic Other non-traumatic joint disorders (20 sources) Pain in right knee; Translations: [Pain in joint, lower leg] Onset: 11-19-2019 11-19-2019 Episodic Other non-traumatic joint disorders (20 sources) Decreased range of knee movement; Translations: [Stiffness of right knee, not elsewhere classified] Onset: 11-19-2019 Resolved: 12-09-2022 11-19-2019 Episodic Other non-traumatic joint disorders (18 sources) Multiple joint pain; Translations: [Pain in unspecified joint] Onset: 07-04-2022 Episodic Residual codes; unclassified (20 sources) Family history of malignant tumor of rectum; Translations: [Family history of malignant neoplasm of digestive organs] Onset: 12-13-2022 12-23-2022 Episodic Unclassified (2 sources) Patient encounter status; Translations: [Annual physical exam] Onset: 12-14-2014 Resolved: 02-05-2018 02-05-2018 Unclassified (2 sources) History of bypass of stomach; Translations: [History of gastric bypass] Onset: 02-09-2017 02-09-2017 Urinary tract infections (20 sources) Lower urinary tract infectious disease; Translations: [Urinary tract infection, site not specified] Onset: 08-18-2013 Resolved: 08-18-2013 08-18-2013 Episodic Varicose veins of lower extremity (11 sources) Varicose veins of lower extremity; Translations: [Varicose veins of bilateral lower extremities with other complications] Onset: 05-21-2023 05-21-2023 Episodic Results Test Name Value Interpretation Reference Range Facility [facility] 12-27-2024 CNPN Telephone (OBGYWM) MELISSA NICHOLS ([id number]) 1970 F Date Time Provider Department 12/27/24 ANA M SOTELO During your visit today, we recorded the following information about you: Cisco Erwin RN 12/27/2024 2:42 PM Addendum Pt is scheduled for B/L screening mammogram at [facility] 01/07/25. [facility] mammography calling for order. Please file and will fax to [facility]. KOBE Rea Renee, APRN.WALKER 12/27/2024 2:39 PM Signed I signed one last week and fax it, will do again. Ana M Sotelo APRN.Cisco Mariee RN 12/27/2024 2:51 PM Signed Order printed and faxed. Cisco Erwin RN Allergies As of Date: 12/27/2024 (No Known Allergies) Date Reviewed: 12/17/2024 Reviewed by: Ana M Sotelo APRN.REPORT CLERK - Fully Assessed Reason for Visit: Screening mammogram [Other] Primary Visit Diagnosis:Breast screening [Z12.39] Order(s):THIEN SCREENING Katt BYRD [[id number]] Order #: [id number] FUTURE Prescriptions as of 12/27/2024 - CALCIUM CITRATE PO Take by mouth once daily. 1200 mg - levothyroxine (SYNTHROID) 100 mcg tablet Take 1 tablet by mouth once daily. - Multivitamin capsule Take 1 capsule by mouth once daily. Problem List As Of Date 12/27/2024 Noted Resolved UTI (lower urinary tract infection) [N39.0] 08/18/2013 08/18/2013 Complex endometrial hyperplasia [N85.01] 09/03/2013 Anemia [D64.9] 12/13/2014 DJD (degenerative joint disease) [M19.90] 12/13/2014 History of gastric bypass [Z98.84] 02/09/2017 Hypocalcemia [E83.51] 01/04/2016 Hypothyroidism [E03.9] 12/13/2014 Positive JESSICA (antinuclear antibody) [R76.8] 02/09/2017 Vitamin D deficiency [E55.9] 12/13/2014 Pain in right knee [M25.561] 11/19/2019 S/P ACL reconstruction [Z98.890] 11/19/2019 Impaired range of motion of right knee [M25.661]11/19/2019 12/09/2022 Decreased strength involving knee joint [R29.89*11/19/2019 Abnormality of gait [R26.9] 11/19/2019 12/09/2022 Family history of rectal cancer [Z80.0] 12/13/2022 Encounter Status:Closed by CISCO ERWIN on 12/27/24 [facility] [place] 12-17-2024 CNOV Office Visit (OBGYWM ) MELISSA NICHOLS ([id number]) 1970 F Date Time Provider Department 12/17/24 9:00 AM ANA M SOTELO OBGYWM During your visit today, we recorded the following information about you: Blood pressure Weight 126/74 76.1 kg Ana M Sotelo APRN.REPORT CLERK 12/17/2024 10:58 AM Signed 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 Melissa is a 54 year old who presents for an annual gynecologic exam without complaints. Postmenopausal: Yes-hysterectomy HRT use: No. Last Pap: 07/27/2012 normal HPV: 07/21/2012 negative History of abnormal pap: Yes Last mammogram: 2023 normal @[facility] History of abnormal mammogram: No OB History Gravida3 Para2 Term0 Preterm0 AB1 Living2 SAB1 IAB0 Ectopic0 Multiple0 Live Births0 Mental Health Clinician History LMP: 09/03/2013, Hysterectomy Age at Menarche: 12 Age at First : Age at Menopause: Mental Health Clinician History Comments: Sexual Activity: Not Currently; Female, Male; Hysterectomy Contraception: Tubal Ligation PAST MEDICAL HISTORY Diagnosis Date Broken ankle Right ankle no surgery Hypothyroidism Melanoma (HCC) Pneumonia 11/25/2018 PAST SURGICAL HISTORY Procedure Laterality Date DILATION AND CURETTAGE DXAND/THER NONOBSTETRIC 08/05/2013 Polypectomy EGD BARIATRIC 10/2023 EGD W/O BRSH SPEC VARICIES INJ 11/05/2023 ENDOVENOUS LASER, 1ST VEIN 07/22, 12/22, 03/24 [address]SS[address] Linton GASTRIC BYPASS HX 2005 HYSTERECTOMY HX KNEE SURGERY HX Right 11/10/2019 ACL/MCL/Miniscus LIG/TRNSXJ FLP TUBE ABDL/VAG APPR UNI/BI 2010 MELANOMA OF SKIN BIOPSY SYN RPT MELANOMA OF SKIN EXCISION SYN RPT REPAIR UMBILICAL HERNIA 2002, 2003 mesh SKIN BIOPSY HX FAMILY HISTORY Problem Relation Age of Onset Stroke Mother 42 DVT Mother other (CHF) Mother other (Bipolar Disorder) Mother dx after stroke Alcohol/Drug Father alcohol Diabetes Father Hypertension Father Cancer Father liver and pancreatic Hypertension Sister DVT Sister Rectal Cancer Brother COPD Brother Alcohol abuse Brother Hypertension Maternal Grandmother Hyperlipidemia Maternal Grandmother COPD Maternal Grandmother Diabetes Paternal Grandmother Kidney failure Paternal Grandmother Diabetes Paternal Grandfather No Known Problems Daughter No Known Problems Daughter SOCIAL HISTORY Social History Tobacco Use Smoking status: Never Passive exposure: Never Smokeless tobacco: Never Vaping Use Vaping status: Never Used Substance Use Topics Alcohol use: No Drug use: No REVIEW OF SYSTEMS Abdomen: No abdominal pain, nausea, vomiting, diarrhea, or constipation. No bloating, early satiety, indigestion, or increased flatulence. Bladder: No dysuria, gross hematuria, urinary frequency, urinary urgency, or incontinence Breast: No breast lumps, nipple d/c, overlying skin changes, redness or skin retraction Allergies and current medication updated:Yes SENSITIVE EXAM: The sensitive examination was discussed with the Patient or Patient's Authorized Route Process Administrator. As applicable, any other physician, advance practice provider, medical student, or other health professional student that will be observing or involved in the sensitive examination for educational or training purposes was discussed with the Patient or Authorized Route Process Administrator. The Patient or Authorized Route Process Administrator has agreed to proceed with the sensitive examination. (Sensitive examination includes inspection and/or palpation of the breasts, pelvis, prostate and anorectal regions). EXAM: BP 126/74 Wt 167 lb 12.8 oz (76.1kg) LMP 09/03/2013 GENERAL: pleasant, female in no apparent distress HEENT: Normocephalic, atraumatic, mucus membranes moist, and no lesions DERMATOLOGY: Normal, without lesions, non-icteric, and non-hirsute BREAST: soft, non-tender, symmetric, no dominant mass, normal nipple-areolar complex, no lymphadenopathy, and no nipple discharge CHEST: Normal inspiratory effort ABDOMEN: soft, non-tender, and no masses PELVIC: external genitalia normal, normal Bartholin's glands, urethra, Bloomfield's glands, no vulvar lesions, physiologic discharge present, normal appearing perineal body and perianal region, cervix surgically absent BIMANUAL: no adnexal masses, non-tender, and uterus surgically absent RECTOVAGINAL: deferred. NEURO: alert and oriented x3,exam grossly non-focal EXTREMITIES: normal ASSESSMENT/PLAN: 1) Health maintenance: Pap/HPV screening no longer needed Mammogram ordered @[facility] Nutrition, exercise and routine health maintenance exams reviewed. Calcium/Vitamin D supplementation information provided. Colon cancer screening: up to date with screening BMD: up to date 2) Follow up one year or sooner as needed Ana M Sotelo APRN.REPORT CLERK Allergies As of Date: 12/17/2024 (No Known Allergies) Date Reviewed: 12/17/2024 Reviewed by: Ana M Sotelo APRN.REPORT CLERK - Fully Assessed R (more content not included)... Normal [facility] 25(OH)D3 [facility] 2024 25-hydroxyvitamin D3 [Mass/Vol] 54.0 ng/mL Normal >=30.0 [facility] Comment on above: Order Comment: Speci men Type: BLOOD SPECIMEN Ordering Facility: [facility] Address: [address] [place] [address] Result Comment: Clas sification of 25 OH Vitamin D status: Deficiency: <= 20.0 ng/ml. Insufficiency: 21.0-29.0 ng/ml. Sufficiency: >= 30.0 ng/ml. Performed By: #### 1 989-3 #### [facility] CLIA [id number] [address] 36on 08-03-2024 36 Prescription Refill Request: PCP out of office Patient Name: Melissa Nichols PCP: Demetri Arnold MD Past Medical History: Past Medical History: Diagnosis Date Abnormal Pap smear of cervix 2010 Autoimmune disorder (HCC) 11/09/2018 Cancer (CMS/HCC) (HCC) 2016 Cardiac dysrhythmia Chronic anemia Connective tissue disease (HCC) Elevated BP without hypertension GERD (gastroesophageal reflux disease) Grief grief adjustment Hypoglycemia Hypothyroidism Lung nodule Obesity 08 19 1999 Osteoarthritis 1998, 2001 Varicose veins Vitamin D deficiency Past Surgical History: Past Surgical History: Procedure Laterality Date ABDOMINAL SURGERY 2002 ANTERIOR CRUCIATE LIGAMENT REPAIR Right 11/10/2019 BARIATRIC SURGERY 2004 GASTRIC BYPASS 08 2004 HERNIA REPAIR 2002 HYSTERECTOMY OTHER SURGICAL HISTORY Right 05/2016 posterior right calf melanoma removed. OTHER SURGICAL HISTORY 07 10 2012 vein sclerotherapy and 09/2012 TOTAL ABDOMINAL HYSTERECTOMY W/ BILATERAL SALPINGOOPHORECTOMY 09 23 2013 total UPPER GASTROINTESTINAL ENDOSCOPY 11 02 2013 chronic epigastric pain related to patients gastric pouch, no evidence of pathology Allergies: No Known Allergies Problem List: Patient Active Problem List Diagnosis Date Noted Varicose veins of bilateral lower extremities with other complications 05/21/2023 Arthralgia of multiple sites 07/04/2022 Acquired iron deficiency anemia due to decreased absorption 05/14/2022 Morbidly obese (HCC) 12/13/2019 Undifferentiated connective tissue disease (HCC) 11/09/2018 History of gastric bypass 02/09/2017 Vitamin D deficiency 12/13/2014 Osteoarthritis 12/13/2014 Acquired hypothyroidism 12/13/2014 Gastroesophageal reflux disease 12/13/2014 Adenomatous endometrial hyperplasia 09/03/2013 Current Medication List: Current Outpatient Medications on File Prior to Visit Medication Sig Dispense Refill ergocalciferol (Vitamin D2) 1.25 MG (61565 UT) capsule TAKE ONE CAPSULE BY MOUTH ONCE WEEKLY 188 capsule 0 levothyroxine (Synthroid, Levoxyl) 100 MCG tablet Take 1 tablet (100 mcg) by mouth daily. 90 tablet 0 Multiple Vitamin (multivitamin) capsule Take 1 capsule by mouth daily. omeprazole (PriLOSEC) [address] capsule Take 40 mg by mouth twice a day. (Patient taking differently: Take 40 mg by mouth every morning (before breakfast).) No current facility-administered medications on file prior to visit. Chart review performed. The identity and location of the patient was confirmed. Informed consent for treatment previously established. The patient's diagnosis was confirmed and necessity for prescribed drug was verified. Drug(s) to be refilled: levothyroxine The patient does not have underlying conditions or contraindications which preclude continuation of the medication at this time. In my opinion, abrupt discontinuation of this medication would be potentially harmful to the patient and a refill is being provided at this time on an emergency basis. Appropriate follow-up with primary care provider to be scheduled. Normal [facility] CBC panel Auto (Bld)on 07-29 Erythrocyte distribution width (RBC) [Ratio] 12.3 % Normal 11.5-15.0 [facility] Comment on above: Order Comment: Yonathan hubbard Type: BLOOD SPECIMENOrdering Facility: [facility] Address: [address] [place] [address] Performed By: #### 5 8410-2 ####[facility] [id number] [place] [address] [place] Hematocrit (Bld) [Volume fraction] 36.5 % Normal 36.0-46.0 [facility] Comment on above: Order Comment: Speci men Type: BLOOD SPECIMENOrdering Facility: [facility] Address: [address] [place] [address] Performed By: #### 5 8410-2 ####[facility] [id number] [place] [address] [place] Hemoglobin (Bld) [Mass/Vol] 11.9 g/dL Normal 11.5-15.5 [facility] Comment on above: Order Comment: Speci men Type: BLOOD SPECIMENOrdering Facility: [facility] Address: [address] [place] [address] Performed By: #### 5 8410-2 ####[facility] [id number] [place] [address] [place] MCH (RBC) [Entitic mass] 30.4 pg Normal 26.0-34.0 [facility] Comment on above: Order Comment: Speci men Type: BLOOD SPECIMENOrdering Facility: [facility] Address: [address] [place] [address] Performed By: #### 5 8410-2 ####[facility] [id number] [place] [address] [place] MCHC (RBC) [Mass/Vol] 32.6 g/dL Normal 30.5-36.0 [facility] Comment on above: Order Comment: Speci men Type: BLOOD SPECIMENOrdering Facility: [facility] Address: [address] [place] [address] Performed By: #### 5 8410-2 ####[facility] [id number] [place] [address] [place] MCV (RBC) [Entitic vol] 93.1 fL Normal 80.0-100.0 [facility] Comment on above: Order Comment: Speci men Type: BLOOD SPECIMENOrdering Facility: [facility] Address: [address] [place] [address] Performed By: #### 5 8410-2 ####[facility] [id number] [address] [place] [address] [place] Nucleated RBC (Bld) [#/Vol] 10*3/uL Normal <0.01 [facility] Comment on above: Order Comment: Speci men Type: BLOOD SPECIMENOrdering Facility: [facility] Address: [address] [place] [address] Performed By: #### 5 8410-2 ####[facility] [id number] [address], [place] [address] [place] Platelet mean volume (Bld) [Entitic vol] 9.1 fL Normal 9.0-12.7 [facility] Comment on above: Order Comment: Speci men Type: BLOOD SPECIMENOrdering Facility: [facility] Address: [address] [place] [address] Performed By: #### 5 8410-2 ####[facility] [id number] [place] [address] [place] Platelets (Bld) [#/Vol] 207 10*3/uL Normal 150-400 [facility] Comment on above: Order Comment: Speci men Type: BLOOD SPECIMENOrdering Facility: [facility] Address: [address] [place] [address] Performed By: #### 5 8410-2 ####[facility] [id number] [place] [address] [place] RBC (Bld) [#/Vol] 3.92 10*6/uL Normal 3.90-5.20 [facility] Comment on above: Order Comment: Speci men Type: BLOOD SPECIMENOrdering Facility: [facility] Address: [address] [place] [address] Performed By: #### 5 8410-2 ####[facility] [id number] [address], [facility] [place] WBC (Bld) [#/Vol] 8.96 10*3/uL Normal 3.70-11.00 [facility] Comment on above: Order Comment: Speci men Type: BLOOD SPECIMENOrdering Facility: [facility] Address: [address] [place] [address] [place] [address] Performed By: #### 5 8410-2 ####[facility] [id number] [facility] [address] [place] CNDSon 07-29-2024 CNDS HNO ID: [id number] Author: SEJAL REID MD Service: General Internal Medicine Author Type: Physician Type: Discharge Summary Filed: 07/29/2024 13:23 Note Text: DISCHARGE SUMMARY PATIENT NAME: Melissa Nichols ADMISSION DATE: 07/28/2024 DISCHARGE DATE: 07/29/2024 ATTENDING PHYSICIAN: Sejal Reid MD Code Status: Full Code Highest Readmission Risk Score: 14 The 30 day readmissions risk score is derived from an internally validated risk model which evaluates patient level characteristics, utilization history, medication orders and lab results up until the day of discharge. Patients with a score of 39 or above are considered highest risk for readmission. Specific patient level drivers will be listed at the bottom of the summary. CONSULTING TEAMS DURING HOSPITALIZATION: gi Treatment Team: Attending Provider: Sejal Reid MD Primary Service: GIM 2 REASON FOR HOSPITALIZATION: observation after EGBR procedure . DIAGNOSIS: Principal Problem: History of gastric bypass (POA: Yes) Active Problems: Hypothyroidism (POA: Yes) Vitamin D deficiency (POA: Yes) Resolved Problems: * No resolved hospital problems. * OPERATIONS DURING HOSPITALIZATION: None PROCEDURES DURING HOSPITALIZATION: EGBR procedure HOSPITAL COURSE: 53 year old female with history of obesity s/p RYGB 04/2004, hypothyroidism, degenerative joint disease, vitamin D deficiency presented for observation post endoscopic gastric bypass revision. Per protocol she remained n.p.o. overnight on IV fluids with nausea medications. She did well overnight and in the morning she had minimal morning pain and was able to tolerate sips of water. Per GI okay to be discharged home at this time. Discharged home in a stable condition. Transitions of Care Critical Issues: SPECIALIST FOLLOW-UP: GI follow-up Per GI recs The patient should be discharged on CAPSULE form omeprazole 40mg BID before meals (capsules, to be opened and contents sprinkled on pudding, yogurt, or applesauce) x 8 weeks. Please ensure CAPSULE form is prescribed. -Start liquid Carafate solution 1gm TID for 8 weeks after meals POD#2. If insurance does not cover solution form, can prescribe tablet and ask patient to crush tablet and mix in 6-8 oz of water - Ensure prescribed anti-emetic medications at discharge (zofran 8 mg disintegrating table q 8 hr PRN). -Consider giving compazine PRN for nausea as well. -All medications to be converted to liquid and crushable form for 6 weeks at discharge. -Send home with liquid tylenol PRN -Liquid protein diet for 45 days. Outpatient diet handout was printed and provided to patient. Further instructions for diet were given to patient. -Change IV cipro/flagyl to PO (instructed to crush and take with liquids) x 3 days (beginning POD#1) LABS AND PROCEDURES PENDING AT DISCHARGE: No pending results. PATIENT CONDITION AT DISCHARGE: Stable DISCHARGE DISPOSITION: Home with Self Care Discharge Physical Exam: VITAL SIGNS: BP 126/76 Pulse 71 Temp 37.2 ?C (99 ?F) (Oral) Resp 16 Ht 157.5 cm (5' 2) Wt 84.4 kg (186 lb) LMP 09/03/2013 SpO2 96% BMI 34.02 kg/m? GENERAL: Alert, no distress, cooperative SKIN: Skin color, texture, turgor normal. No rashes or lesions. OROPHARYNX: Lips, mucosa, and tongue normal. Teeth and gums normal. Oropharynx normal. LUNGS: Lungs clear to auscultation, Good diaphragmatic excursion CARDIAC: Normal S1 and S2; no rubs, murmurs, or gallops ABDOMEN: Abdomen soft, non-tender, BS normal, No masses or organomegaly EXTREMITIES: Extremities normal, no deformities, edema, clubbing or skin discoloration. Good capillary refill., No ulcers INFORMATION PROVIDED TO PATIENT: Given a copy of [facility] WOUND/SURGICAL SITE CARE: None DIET: Resume pre-hospital diet ACTIVITY: Resume pre-hospital activity ALLERGIES No Known Allergies DISCHARGE MEDICATION: Medication List START taking these medications ciprofloxacin HCl 500 mg tablet Commonly known as: CIPRO Take 1 tablet by mouth two times a day for 5 days. metroNIDAZOLE 500 mg tablet Commonly known as: FLAGYL Take 1 tablet by mouth four times daily for 5 days. CONTINUE taking these medications acetaminophen 500 mg/15 mL Liqd Commonly known as: TYLENOL Take 15 mL by mouth every 6 hours as needed for pain. Do not exceed 5 doses in 24 hours. CARAFATE 1 gram tablet Generic drug: sucralfate Place 1 tablet in cup with 15ml-30ml warm water. Allow to dissolve into a slurry and drink. Repeat FOUR times daily as directed. Start on 07/30/24. ergocalciferol (vitamin D2) 50,000 unit capsule Commonly known as: DRISDOL levothyroxine 100 mcg tablet Commonly known as: SYNTHROID Multivitamin capsule omeprazole 40 mg capsule Commonly known as: PriLOSEC Take 1 capsule by mouth two times a day. Open capsule sprinkle over applesauce and take 30 minutes before breakfast and 30 minutes before dinner ondansetron or (more content not included)... Normal [facility] CONSULTon 07-29-2024 CONSULT HNO ID: [id number] Author: VIANYE SERRANO MD Service: Gastroenterology Author Type: Fellow Type: Consults Filed: 07/29/2024 11:42 Note Text: GI/Bariatric Endoscopy consult progress note Gastroenterology, Hepatology, and Nutrition Department ?[facility] Gastroenterology and Hepatology Inpatient Progress Note 24 Hour Events/Subjective - S/p EGBR procedure yesterday - No acute events overnight - Nausea well controlled, minimal abdominal pain reported Medications Reviewed Objective Vitals: BP 126/76 Pulse 71 Temp 37.2 ?C (99 ?F) (Oral) Resp 16 Ht 157.5 cm (5' 2) Wt 84.4 kg (186 lb) LMP 09/03/2013 SpO2 96% BMI 34.02 kg/m? Intake/Output Summary (Last 24 hours) at 07/29/2024 1141 Last data filed at 07/29/2024 0600 Gross per 24 hour Intake 0 ml Output 1 ml Net -1 ml Physical Exam Gen: Pleasant woman lying in bed in NAD HEENT: Anicteric, dry MM, O/P clear PULM: CTAB, no w/r/r CVS: RRR, S1,S2, No m/r/g Abd: Soft, nondistended, nontender, normoactive BS Ext: No edema Neuro: AAOx3, non-focal Labs Reviewed Micro COVID-19 negative Imaging Reviewed, no new data Endoscopy See report Impression AND Recommendations 53yo female with obesity s/p RYGB now s/p TORe for bypass revision as management for weight regain. Admitted to observation overnight for nausea/vomiting control. Recommendations: ?- On POD #1, the patient should be given sips of water, up to 2oz per hour as tolerated - If tolerates liquids without issue, can be discharged from GI perspective (handout provided) Begin: Morning after procedure Duration: 1 day Diet instructions: Fluids are the number one priority 2 ounces of non-caloric, non-carbonated, non-caffeinated liquids every hour for the first 6 hours Then 4oz per hour for the next 8 hours . Record all fluid intake Use 1 ounce medicine cup and take one sip every 5 mins Sip slowly and stop as soon as you feel full Do not use straw Begin: 48 hours after procedure Duration: 45 days Fluid Goal: 60 ounces per day (protein drinks do NOT count towards fluid goal) Protein Goal: 60 grams per day Calorie Goal: 900 - 1000 calories per day - Can stop IVFs if tolerating sips - Cont pantoprazole 40mg IV BID, patient should be discharged on omeprazole 40mg BID before meals (capsules, to be opened and contents sprinkled on pudding, yogurt, or applesauce) x 8 weeks. - Start liquid Carafate solution 1gm TID x 8 weeks after meals POD#2. If insurance does not cover solution form, can prescribe tablet and ask patient to crush tablet and mix in 6-8 oz of water. - Ensure prescribed anti-emetic medications at discharge (zofran 8 mg disintegrating table q 8 hr prn). - Liquid tylenol prn for pain control - Liquid or IV tylenol prn for pain control - Can consider cepacol lozenges or phenol spray for sore throat - Continue IV antibiotics while in the hospital - Activity as tolerated - All medications to be converted to liquid and crushable form for 6 weeks at discharge. - We will arrange for outpatient follow-up with nutrition in 2 weeks and GI/Bariatric Endoscopy clinic with Dr. Thomas 4 weeks Discharge instructions (when patient is going home/please send below to patient's pharmacy): -Please double check patient will be able to apple picker medications from patient's pharmacy same day of discharge / i.e. verify pharmacy hours (since patient cannot be home without antinausea meds/other meds) -The patient should be discharged on CAPSULE form omeprazole 40mg BID before meals (capsules, to be opened and contents sprinkled on pudding, yogurt, or applesauce) x 8 weeks. Please ensure CAPSULE form is prescribed. -Start liquid Carafate solution 1gm TID for 8 weeks after meals POD#2. If insurance does not cover solution form, can prescribe tablet and ask patient to crush tablet and mix in 6-8 oz of water - Ensure prescribed anti-emetic medications at discharge (zofran 8 mg disintegrating table q 8 hr PRN). -Consider giving compazine PRN for nausea as well. -All medications to be converted to liquid and crushable form for 6 weeks at discharge. -Send home with liquid tylenol PRN -Liquid protein diet for 45 days. Outpatient diet handout was printed and provided to patient. Further instructions for diet were given to patient. -Change IV cipro/flagyl to PO (instructed to crush and take with liquids) x 3 days (beginning POD#1) -Will arrange for outpatient follow-up with Bariatric Air Quality Specialist in nutrition clinic in 2 weeks and GI/Bariatric Endoscopy clinic with Dr. Thomas in 4 weeks Please feel free to call Dr. Thomas directly with questions or concerns. Also we can be reached during regular working hours to the GI consult pager [phone]. Overnight and weekends, please page the GI fellow on-call as per the on-call directory (fellow to discuss directly with our te (more content not included)... Normal [facility] Comprehensive metabolic 2000 panelon 07-29-2024 Albumin [Mass/Vol] 4.0 g/dL Normal 3.9-4.9 [facility] Comment on above: Order Comment: Speci men Type: BLOOD SPECIMENOrdering Facility: [facility] Address: [address] [place] [address] [place] [id number] Performed By: #### 2 4323-8 ####[facility] LABCLIA [id number] [facility] [address] [place] [address] [place] ALP [Catalytic activity/Vol] 77 U/L Normal 34-123 [facility] Comment on above: Order Comment: Speci men Type: BLOOD SPECIMENOrdering Facility: [facility] Address: [address] [place] [address] Performed By: #### 2 4323-8 ####[facility] LABCLIA [id number] [facility] [place] [id number] [place] ALT [Catalytic activity/Vol] 21 U/L Normal 7-38 [facility] Comment on above: Order Comment: Speci men Type: BLOOD SPECIMENOrdering Facility: [facility] Address: [address] [place] [address] Performed By: #### 2 4323-8 ####[facility] LABCLIA [id number] [place] [address] [place] Anion gap [Moles/Vol] 11 mmol/L Normal 8-15 [facility] Comment on above: Order Comment: Speci men Type: BLOOD SPECIMENOrdering Facility: [facility] Address: [address] [place] [address] Performed By: #### 2 4323-8 ####[facility] LABCLIA [id number] [place] [id number] [place] AST [Catalytic activity/Vol] 21 U/L Normal 13-35 [facility] Comment on above: Order Comment: Speci men Type: BLOOD SPECIMENOrdering Facility: [facility] Address: [address] [place], [place] [id number] Performed By: #### 2 4323-8 ####[facility]CLIA [id number] [place] [id number] [place] Bilirubin [Mass/Vol] 0.4 mg/dL Normal 0.2-1.3 [facility] Comment on above: Order Comment: Speci men Type: BLOOD SPECIMENOrdering Facility: [facility] Address: [address] [place], [place] [id number] Performed By: #### 2 4323-8 ####[facility] LABCLIA [id number] [address], [facility] [place] Calcium [Mass/Vol] 9.1 mg/dL Normal 8.5-10.2 [facility] Comment on above: Order Comment: Speci men Type: BLOOD SPECIMENOrdering Facility: [facility] Address: [address] [place] [address] Performed By: #### 2 4323-8 ####[facility] LABCLIA [id number] [place] [id number] [place] Chloride [Moles/Vol] 104 mmol/L Normal 98-107 [facility] Comment on above: Order Comment: Speci men Type: BLOOD SPECIMENOrdering Facility: [facility] Address: [address] [place] [address] Performed By: #### 2 4323-8 ####[facility] LABCLIA [id number] [place] [id number] [place] CO2 [Moles/Vol] 24 mmol/L Normal 22-30 [facility] Comment on above: Order Comment: Speci men Type: BLOOD SPECIMENOrdering Facility: [facility] Address: [address] [place], [place] [id number] Performed By: #### 2 4323-8 ####[facility] LABCLIA [id number] [facility] [address] [place] [address] [place] Creatinine [Mass/Vol] 0.72 mg/dL Normal 0.58-0.96 [facility] Comment on above: Order Comment: Speci men Type: BLOOD SPECIMENOrdering Facility: [facility] Address: [address] [place], [place] [id number] Performed By: #### 2 4323-8 ####[facility] LABCLIA [id number] [place] [address] [place] Creatinine and Glomerular filtration rate.predicted panel (S/P/Bld) 101 mL/min/1.73m??? Normal >=60 [facility] Comment on above: Order Comment: Yonathan hubbard Type: BLOOD SPECIMENOrdering Facility: [facility] Address: [address] [place] [address] Result Comment: Lana mated Glomerular Filtration Rate (eGFR) is calculated using the 2020 CKD-EPI creatinine equation. This equation utilizes serum creatinine, sex, and age as parameters. The creatinine assay has traceable calibration to isotope dilution-mass spectrometry. Refer to KDIGO guidelines for clinical interpretation. In patients with unstable renal function, e.g. those with acute kidney injury, the eGFR may not accurately reflect actual GFR. Performed By: #### 2 4323-8 ####[facility] LABCLIA [id number] [place] [address] [place] Glucose [Mass/Vol] 92 mg/dL Normal 74-99 [facility] Comment on above: Order Comment: Yonathan hubbard Type: BLOOD SPECIMENOrdering Facility: [facility] Address: [address] [place] [address] Result Comment: The [employer] Diabetes Association (ADA) provides guidance for cutoff values for fasting glucose and random glucose. The ADA defines fasting as no caloric intake for at least 8 hours. Fasting plasma glucose results between 100 to 125 mg/dL indicate increased risk for diabetes (prediabetes). Fasting plasma glucose results greater than or equal to 126 mg/dL meet the criteria for diagnosis of diabetes. In the absence of unequivocal hyperglycemia, results should be confirmed by repeat testing. In a patient with classic symptoms of hyperglycemia or hyperglycemic crisis, random plasma glucose results greater than or equal to 200 mg/dL meet the criteria for diagnosis of diabetes. Reference: Standards of Medical Care in Diabetes 2016, Indian Diabetes Association. Diabetes Care. 2016.39(Suppl 1). Performed By: #### 2 4323-8 ####[facility] LABCLIA [id number] [place] [id number] [place] Potassium [Moles/Vol] 4.1 mmol/L Normal 3.7-5.1 [facility] Comment on above: Order Comment: Speci men Type: BLOOD SPECIMENOrdering Facility: [facility] Address: [address] [place] [address] Performed By: #### 2 4323-8 ####[facility] LABCLIA [id number] [address] [address] [place] Protein [Mass/Vol] 6.6 g/dL Normal 6.3-8.0 [facility] Comment on above: Order Comment: Speci men Type: BLOOD SPECIMENOrdering Facility: [facility] Address: [address] [place] [address] Performed By: #### 2 4323-8 ####[facility] LABCLIA [id number] [place] [id number] [place] Sodium [Moles/Vol] 139 mmol/L Normal 136-144 [facility] Comment on above: Order Comment: Speci men Type: BLOOD SPECIMENOrdering Facility: [facility] Address: [address] [place] [address] Performed By: #### 2 4323-8 ####[facility] LABCLIA [id number] [place] [address] [place] Urea nitrogen [Mass/Vol] 13 mg/dL Normal 7-21 [facility] Comment on above: Order Comment: Speci men Type: BLOOD SPECIMENOrdering Facility: [facility] Address: [address] [place] [address] Performed By: #### 2 4323-8 ####[facility] LABCLIA [id number] [place] [id number] [place] ANES POSTPROC EVALon 025 ANES POSTPROC EVAL HNO ID: [id number] Author: BARRY PRESCOTT MD Service: ? Author Type: Anesthesiologist Type: Anesthesia Postprocedure Evaluation Filed: 07/28/2024 15:31 Note Text: POST ANESTHESIA EVALUATION NOTE : 1970 Procedure Summary Date: 07/28/24 Room / Location: Gastroenterology Anesthesia Start: 1340 Anesthesia Stop: 1445 Procedure: EGD BARIATRIC Diagnosis: Complications of gastric bypass surgery History of gastric bypass Hepatic steatosis Class 1 obesity due to excess calories with body mass index (BMI) of 33.0 to 33.9 in adult, unspecified whether serious comorbidity present Impaired intestinal absorption (Morbid obesity) Scheduled Providers: Micheal Thomas MD; Lauren Pratt APRN.CHIEF CONCIERGE; Barry Prescott MD Responsible Provider: Barry Prescott MD Anesthesia Type: general ASA Status: 2 Anesthesia Type: general Airway Type: ETT Last Vitals Vitals Value Taken Time BP 121/80 07/28/24 1520 Temp 36.3 ?C (97.3 ?F) 07/28/24 1445 Pulse 59 07/28/24 1529 Resp 16 07/28/24 1520 SpO2 100 % 07/28/24 1529 Vitals shown include unfiled device data. Post Anesthesia Patient Status Patient Evaluation: PACU. PACU/ICU Patient Condition: stable. Anticipated Disposition: inpatient floor planned admission. Neurological Status: sleepy but arousable. Pulmonary Status: breathing comfortably on supplemental oxygen Airway Control: returned to baseline unsupported. Cardiovascular Status: stable. Pain Management: clinically adequate Postoperative Hydration: acceptable. Intraoperative Events: no significant anesthesia events Post Operative Nausea/Vomiting Status: PONV - significant post operative nausea or vomiting with additional medications being ordered/administered. Recommendation: further care per PACU/ICU/floor team. Anesthesia Observations No Documentation SIGNATURE: Barry Prescott MD PATIENT NAME: Meilssa Nichols DATE: July 28, 2024 TIME: 3:30 PM CSN: [id number] Normal [facility] ANES PRE-OPon 07-28-2024 ANES PRE-OP HNO ID: [id number] Author: BARRY PRESCOTT MD Service: ? Author Type: Anesthesiologist Type: Anesthesia Preprocedure Evaluation Filed: 07/28/2024 11:32 Note Text: ANESTHESIOLOGY DAY OF SURGERY NOTE : 1970 Procedure Information Date/Time: 07/28/24 1030 Scheduled providers: Micheal Thomas MD; Lauren Pratt APRN.CHIEF CONCIERGE; Barry Prescott MD Procedure: EGD BARIATRIC Location: Gastroenterology Estimated body mass index is 33.49 kg/m? as calculated from the following: Height as of this encounter: 158.8 cm (5' 2.5). Weight as of this encounter: 84.4 kg (186 lb 1.1 oz). Most recent hematocrit and potassium results: Hematocrit 38.6 07/14/2024 Potassium 3.8 07/14/2024 Relevant Problems ENDO (+) Hypothyroidism Other (+) DJD (degenerative joint disease) I - PHYSICAL EVALUATION AIRWAY Patient intubated: No. Tracheostomy tube not present Mallampati: I. TM distance: >3 FB. Neck ROM: full ROM without neurological symptoms. Mouth opening: adequate. Short neck: no. Thick neck: no DENTAL Dental findings: teeth intact. II - ANESTHESIA PLAN ASA Score: 2 Anesthetic Plan: general Airway type: ETT The patient is not a current smoker. NPO Status: adequate Beta Freddy Monitoring Plan Monitoring plan: standard ASA. Post Procedure Analgesic Plan Postoperative analgesic plan: per surgical service. Informed Consent Anesthetic risks, benefits, alternatives, personnel and consent discussed: yes. Patient / Responsible Republican agrees to proceed: yes Patient / Surrogate agrees to blood products: Yes Significant changes in the patient condition since the History and Physical, not otherwise documented in primary service progress note: no. Potential Anesthesia issues that may suggest increased risk of complications or contraindication to planned procedure: none. Discussed the possibility of lip / dental damage: yes Vitals Value Taken Time BP 116/69 07/28/24 1110 Pulse 61 07/28/24 1110 Resp 16 07/28/24 1110 Temp 36.2 ?C (97.2 ?F) 07/28/24 1110 SpO2 100 % 07/28/24 1110 Outpatient Medications as of 07/28/2024 Medication Sig CARAFATE [address] 1 tablet in cup with 15ml-30ml warm water. Allow to dissolve into a slurry and drink. Repeat FOUR times daily as directed. Start on 07/30/24. acetaminophen (TYLENOL) 500 mg/15 mL liqd Take 15 mL by mouth every 6 hours as needed for pain. Do not exceed 5 doses in 24 hours. ondansetron orally disintegrating (ZOFRAN ODT) 8 mg disintegrating tablet Take 1 tablet by mouth every 8 hours as needed for nausea/vomiting. scopolamine (TRANSDERM-SCOP) patch 1.5 mg/72 hr (delivers 1 mg over 3 days) Apply 1 Patch as directed every 72 hours. omeprazole (PRILOSEC) 40 mg capsule Take 1 capsule by mouth two times a day. Open capsule sprinkle over applesauce and take 30 minutes before breakfast and 30 minutes before dinner ergocalciferol, vitamin D2, (DRISDOL) 50,000 unit capsule Take 1 capsule by mouth once each week. levothyroxine (SYNTHROID) 100 mcg tablet Take 1 tablet by mouth once daily. Multivitamin capsule Take 1 capsule by mouth once daily. Facility-Administered Medications as of 07/28/2024 Medication Dose Route Frequency lidocaine (PF) 10 mg/mL (1 %) 1-2 mg injection (XYLOCAINE) 0.1-0.2 mL INTRADERMAL PRN lactated ringers iv infusion 30 mL/hr INTRAVENOUS CONTINUOUS fosaprepitant 150 mg in NaCl 0.9% 250 mL (EMEND) 150 mg INTRAVENOUS ONCE dexAMETHasone sodium phosphate (PF) 8 mg injection (DECADRON) 8 mg INTRAVENOUS ONCE [COMPLETED] ondansetron (PF) 8 mg injection (ZOFRAN) 8 mg INTRAVENOUS ONCE scopolamine (delivers 1 mg over 3 days) 1 Patch (TRANSDERM-SCOP) 1 Patch TRANSDERMAL q 72 HR And [START ON 2024] scopolamine - REMOVE PATCH OTHER q 72 HR And scopolamine - VERIFY patch OTHER q 8 H I have interviewed and examined the patient. I have reviewed the medical record and/or the pre-anesthesia evaluation, pertinent labs, and test results. This contains updated information obtained within 48 hours of Surgery/Procedure. SIGNATURE: Barry Prescott MD PATIENT NAME: Melissa Nichols DATE: July 28, 2024 TIME: 11:31 AM CSN: [id number] Normal [facility] CONSULTon 07-28-2024 CONSULT HNO ID: [id number] Author: VIANEY SERRANO MD Service: Hepatology Author Type: Fellow Type: Consults Filed: 07/28/2024 14:38 Note Text: GI/Bariatric Endoscopy consult progress note Gastroenterology, Hepatology, and Nutrition Department ?[facility] Gastroenterology and Hepatology Inpatient Progress Note 24 Hour Events/Subjective 53yo female with obesity s/p RYGB now s/p TORe for bypass revision as management for weight regain. Admitted to observation overnight for nausea/vomiting control. Doing well post-procedure. Medications Current Outpatient Medications Medication Sig Dispense Refill CARAFATE [address] 1 tablet in cup with 15ml-30ml warm water. Allow to dissolve into a slurry and drink. Repeat FOUR times daily as directed. Start on 07/30/24. 120 tablet 2 acetaminophen (TYLENOL) 500 mg/15 mL liqd Take 15 mL by mouth every 6 hours as needed for pain. Do not exceed 5 doses in 24 hours. 1000 mL 0 ondansetron orally disintegrating (ZOFRAN ODT) 8 mg disintegrating tablet Take 1 tablet by mouth every 8 hours as needed for nausea/vomiting. 20 tablet 0 scopolamine (TRANSDERM-SCOP) patch 1.5 mg/72 hr (delivers 1 mg over 3 days) Apply 1 Patch as directed every 72 hours. 4 Patch 0 omeprazole (PRILOSEC) 40 mg capsule Take 1 capsule by mouth two times a day. Open capsule sprinkle over applesauce and take 30 minutes before breakfast and 30 minutes before dinner 180 capsule 0 ergocalciferol, vitamin D2, (DRISDOL) 50,000 unit capsule Take 1 capsule by mouth once each week. levothyroxine (SYNTHROID) 100 mcg tablet Take 1 tablet by mouth once daily. Multivitamin capsule Take 1 capsule by mouth once daily. Current Facility-Administered Medications Medication Dose Route Frequency Provider Last Rate Last Admin lidocaine (PF) 10 mg/mL (1 %) 1-2 mg injection (XYLOCAINE) 0.1-0.2 mL INTRADERMAL PRN Vianey Serrano MD lactated ringers iv infusion 30 mL/hr INTRAVENOUS CONTINUOUS Vianey Serrano MD dexAMETHasone sodium phosphate (PF) 8 mg injection (DECADRON) 8 mg INTRAVENOUS ONCE Vianey Serrano MD scopolamine (delivers 1 mg over 3 days) 1 Patch (TRANSDERM-SCOP) 1 Patch TRANSDERMAL q 72 HR Vianey Serrano MD And [START ON 2024] scopolamine - REMOVE PATCH OTHER q 72 HR Vianey Serrano MD And scopolamine - VERIFY patch OTHER q 8 H Vianey Serrano MD Facility-Administered Medications Ordered in Other Encounters Medication Dose Route Frequency Provider Last Rate Last Admin propofol injection (DIPRIVAN) INTRAVENOUS PRN LamarcaLauren A, 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.CHIEF CONCIERGE 50 mg at 07/28/24 1357 propofol infusion (DIPRIVAN) INTRAVENOUS X (ONE-STEP ONLY) CONTINUOUS PRN LamarcaLauren A, 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.CHIEF CONCIERGE Stopped at 07/28/24 1423 rocuronium injection INTRAVENOUS PRN Lamarca, Lauren A, 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.CHIEF CONCIERGE 50 mg at 07/28/24 1346 lactated ringers iv infusion INTRAVENOUS X (ONE-STEP ONLY) CONTINUOUS PRN Lamarca, Lauren A, 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.CHIEF CONCIERGE Stopped at 07/28/24 1423 dexAMETHasone sodium phosphate injection (DECADRON) INTRAVENOUS PRN LamarcaLauren A, 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.CHIEF CONCIERGE 8 mg at 07/28/24 1353 lidocaine (PF) 10 mg/mL (1 %) injection (XYLOCAINE) INTRAVENOUS PRN Lamarca, Lauren A, 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.CHIEF CONCIERGE 100 mg at 07/28/24 1344 glucagon injection INTRAVENOUS PRN Lamarca, Lauren A, 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.CHIEF CONCIERGE 0.5 mg at 07/28/24 1410 sugammadex injection (BRIDION) INTRAVENOUS PRN LamLauren childers A, 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.CHIEF CONCIERGE 200 mg at 07/28/24 1426 Objective Vitals: BP 116/69 Pulse 61 Temp 36.2 ?C (97.2 ?F) (Temporal) Resp 16 Ht 158.8 cm (5' 2.5) Wt 84.4 kg (186 lb 1.1 oz) LMP 09/03/2013 SpO2 100% BMI 33.49 kg/m? Intake/Output Summary (Last 24 hours) at 07/28/2024 1436 Last data filed at 07/28/2024 1423 Gross per 24 hour Intake 1000 ml Output -- Net 1000 ml Physical Exam Gen: Pleasant woman lying in bed in NAD HEENT: Anicteric, dry MM, O/P clear PULM: CTAB, no w/r/r CVS: RRR, S1,S2, No m/r/g Abd: Soft, nondistended, nontender, normoactive BS Ext: No edema Neuro: AAOx3, non-focal Labs Reviewed Imaging Reviewed, no new data Endoscopy See note from today's procedure Impression AND Recommendations 53yo female with obesity s/p RYGB now s/p TORe for bypass revision as management for weight regain. Admitted to observation overnight for nausea/vomiting control. Recommendations: ?- On POD #1, the patient should be given sips of water, up to 2oz per hour as tolerated - If tolerates liquids without issue, can be discharged from GI perspective (handout provided) Begin: Morning after procedure Duration: 1 day Diet instructions: Fluids are the number one priority 2 ounces of non-caloric, non-carbonated, non-caffeinated liquids every hour for the first 6 hours Then 4oz per hour for the next 8 hours . Record all fluid intake Use 1 ounce medicine cup and take one sip every 5 mins Sip slowly and stop as soon as you feel full Do not use straw Begin: 48 hours after (more content not included)... Normal [facility] ECG COMPLETEon 07-28-2024 ECG COMPLETE Ventricular Rate : 6 9 BPM Atrial Rate : 69 BPM P-R Interval : 176 ms QRS Duration : 72 ms Q-T Interval : 374 ms QTC Calculation(Bazett) : 400 ms Calculated P [place] : 61 degrees Calculated R [place] : 3 degrees Calculated T [place] : 40 degrees NORMAL SINUS RHYTHM LOW VOLTAGE QRS, CONSIDER PULMONARY DISEASE, PERICARDIAL EFFUSION, OR NORMAL VARIANT BORDERLINE ECG Confirmed by MITZI SEAMAN MD ([id number]) on 08/17/2024 9:21:41 PM NAME : MELISSA NICHOLS PID : [id number] : 1970 Gender : Female Race : ORD : [id number] Procedure Date : Jul 28 2024 19:31:31 Edit Date : Aug 17 2024 21:21:44 Diagnosis: NORMAL SINUS RHYTHM LOW VOLTAGE QRS, CONSIDER PULMONARY DISEASE, PERICARDIAL EFFUSION, OR NORMAL VARIANT BORDERLINE ECG Confirmed by MITZI SEAMAN MD ([id number]) on 08/17/2024 9:21:41 PM Test Reason : Check QT Location : 84 : H81 H081-24 Overread By : MITZI SEAMAN MD Edited By : MITZI SEAMAN MD Referred By : Micheal THOMAS Acquired by : MIKEY CORTES [facility] EGD Study observation Zarina mckeon 07-28-2024 Addendum Number: 1 Addendum Date: 07/28/2024 2:27:[address] Micheal Thomas MD 07/28/2024 2:27:31 PM This report has been signed electronically by Micheal Thomas MD Q3 Patient Name: Melissa Nichols Procedure Date: 07/28/2024 1:35 PM Date of : 1970 Admit Type: Outpatient Age: 53 Gender: Female Note Status: Addendum Attending MD: Micheal Thomas MD, [id number] Procedure: Upper GI endoscopy Indications: Morbid obesity Providers: Micheal Thomas MD Patient Profile: This is a 53 year old female. Refer to note in patient chart for documentation of history and physical. Referring Physician: Maranda Castro (Referring MD) Medicines: General Anesthesia Requesting Provider: Procedure: Pre-Anesthesia Assessment: - Prior to the procedure, a History and Physical was performed, and patient medications and allergies were reviewed. The patient's tolerance of previous anesthesia was also reviewed. The risks and benefits of the procedure and the sedation options and risks were discussed with the patient. All questions were answered, and informed consent was obtained. Prior Anticoagulants: The patient has taken no anticoagulant or antiplatelet agents. ASA Grade Assessment: III - A patient with severe systemic disease. After reviewing the risks and benefits, the patient was deemed in satisfactory condition to undergo the procedure. After obtaining informed consent, the endoscope was passed under direct vision. Throughout the procedure, the patient's blood pressure, pulse, and oxygen saturations were monitored continuously. The Endoscope was introduced through the mouth, and advanced to the anastomosis site of gastric bypass. The upper GI endoscopy was accomplished without difficulty. The patient tolerated the procedure well. Moderate Sedation: General anesthesia was administered by the anesthesia team. Findings: The examined esophagus was normal. The Z line was regular at 40 cm from incisors. The GE junction and hiatus were at 40 cm from incisors. Evidence of a Abisai-en-Y gastric bypass (RYGB) was found. The gastrojejunal anastomosis (GJA) was characterized by normal appearing mucosa. No ulcers, erosion, sutures or zeke. The GJA outlet was dilated 45 mm diameter and was traversed. The gastric pouch extended from 40 cm to 44 cm from the incisors. No gastro-gastric fistula found. The jejunum was normal at 60 cm (both Abisai/alimentary and blind limbs). No food or debris in the blind limb. The small bowel was not dilated and there was no evidence of excess fluid or distal obstruction. The jejuno-jejunal anastomosis was not evaluated. At the conclusion of the diagnostic endoscopy 120 mL of a dilute simethicone solution was instilled in the duodenum and an esophageal overtube with removable obturator was placed into the esophagus over the endoscope. Then the scope was exchanged for an upper double channel scope. REVISION OF GASTROJEJUNAL ANASTOMOSIS Attention was then given to the gastrojejunal anastomosis. The margin of the anastomosis was treated with Argon Plasma Coagulation (APC; forced APC, 0.8 L/min, 70 Moralez). The suturing device was then used to place 9 stitches into the tissue, in pursestring fashion, surrounding the anastomosis. The suture was then tightened and secured over a 6 mm bougie. Additional 1 interrupted suture was placed to reinforce pursestring sutures and for gastroplasty. Following the procedure a diagnostic endoscope was used to evaluate the anatomy, to look for signs of trauma or hemorrhage, and to remove the overtube. There were no mucosal injuries to the proximal esophagus. 2 syringes of hemostatic gel matrix (Purastat) were applied to the site. Impression: - No specimens collected. Estimated Blood Loss: Estimated blood loss was minimal. Recommendation: - [facility]. - Strict NPO overnight except necessary medications given in liquid form or crushed with sips of water. - IV hydration while NPO. (more content not included)... PROVATION [facility] Radiology Study observation (narrative) [facility] HISTORY PHYSICALon HISTORY PHYSICAL HNO ID: [id number] Author: MICHELE MORENO MD Service: General Internal Medicine Author Type: Physician Type: H&P Filed: 07/28/2024 22:49 Note Text: DEPARTMENT OF HOSPITAL MEDICINE HISTORY AND PHYSICAL EXAM SERVICE DATE: 07/28/2024 SERVICE TIME: 5:45 PM Primary Care Physician: Demetri Arnold, NIGHT AND WEEKEND COVERAGE: [facility] COVERAGE: Days: [phone], please page corresponding GIM for patient issues. Nights: [phone], please page Team: Radha/H 8th floor: [phone]; Non 8th floor [phone] Subjective CHIEF COMPLAINT: post procedural observation HPI: This is a 53 year old female with history of: - obesity s/p RYGB on 04/2004 - hypothyroidism - degenerative joint disease - vitamin D deficiency Patient presented as direct admission from post endoscopic gastric bypass revision. On interview, patient reporting that she is doing well post procedurally. She denies active abdominal pain. She is reporting mid-sternal burning sensation consistent with acid reflux. She is reporting mild nausea, which is improving at the current time. EGD bariatric 07/28/24: Impression: - No specimens collected. Estimated Blood Loss: Estimated blood loss was minimal. Recommendation: - [facility] care. - Strict NPO overnight except necessary medications given in liquid form or crushed with sips of water. - IV hydration while NPO. - Start PPI 40 mg IV q12h. - Please order Scheduled Zofran 8 mg IV q8h. - Also place PRN orders for additional Antiemetics with rectal compazine, ativan, or phenergen as needed. - Do not give reglan. - Please ambulate with assistance as needed. - No NG tube or BiPAP. - No KUB or CT scan abdomen (without first discussing with GI Bariatric Endoscopy team, Dr. Thomas team, please page GI fellow). - No heavy lifting for 4 weeks. - Pain control PRN per primary team (avoid opiates if at all possible) - The morning post-procedure may start sips of water (2oz every hour) as tolerated. - Liquid protein diet for 45 days as per protocol. Outpatient diet guidelines printed and provided. - All medications to be converted to liquid and crushable form for 6 weeks at discharge. - Need to go home on omeprazole 40 mg BID (CAPSULE form) and please open the capsule and mix in apple sauce for 6 weeks and carafate solution form 1 g TID for 6 weeks. - Follow up in clinic in GI/Bariatric Endoscopy clinic Advanced Practice Provider (SHEN) Maranda Castro NP in 1-2 weeks. - Follow up with GI/Bariatric Endoscopy Dietitian Trey Ceron RD or Angie Roth RD in clinic in 1-2 weeks. - Follow up with GI/Bariatric Endoscopy Psychologist Dr. Adali Oliveros PsyD in 2-4 weeks. - Follow up in clinic in GI/Bariatric Endoscopy clinic with Dr. Thomas in 6-8 weeks. - If you have not done already Please call to schedule all your appointments [phone] or [phone] or [phone], or [phone]. - Patient has a contact number available for emergencies. The signs and symptoms of potential delayed complications were discussed with the patient. Return to normal activities tomorrow. Written discharge instructions were provided to the patient. Labs 07/14/24: - BMP: unremarkable - LFT: unremarkable - hemoglobin A1c = 5.3% - Utox: negative - CBC: WBC 3.17k (~ 3.5k in 10/2023), hemoglobin 12.4g/dL, platelet 216k PAST MEDICAL HISTORY Diagnosis Date Broken ankle Right ankle no surgery Hypothyroidism Melanoma (HCC) Pneumonia 11/25/2018 PAST SURGICAL HISTORY Procedure Laterality Date DILATION AND CURETTAGE DXAND/THER NONOBSTETRIC 08/05/2013 Polypectomy EGD BARIATRIC 10/2023 EGD W/O BRSH SPEC VARICIES INJ 11/05/2023 ENDOVENOUS LASER, 1ST VEIN 07/22, 12/22, 03/24 [address]SS[address] Linton GASTRIC BYPASS HX 2005 HYSTERECTOMY HX KNEE SURGERY HX Right 11/10/2019 ACL/MCL/Miniscus LIG/TRNSXJ FLP TUBE ABDL/VAG APPR UNI/BI 2010 MELANOMA OF SKIN BIOPSY SYN RPT MELANOMA OF SKIN EXCISION SYN RPT REPAIR UMBILICAL HERNIA 2002, 2003 mesh SKIN BIOPSY HX FAMILY HISTORY Problem Relation Age of Onset Stroke Mother 42 DVT Mother other (CHF) Mother other (Bipolar Disorder) Mother dx after stroke Alcohol/Drug Father alcohol Diabetes Father Hypertension Father Cancer Father liver and pancreatic Hypertension Sister DVT Sister Rectal Cancer Brother COPD Brother Alcohol abuse Brother Hypertension Maternal Grandmother Hyperlipidemia Maternal Grandmother COPD Maternal Grandmother Diabetes Paternal Grandmother Kidney failure Paternal Grandmother Diabetes Paternal Grandfather No Known Problems Daughter No Known Problems Daughter Social History Tobacco Use Smoking status: Never Passive exposure: Never Smokeless tobacco: Never Vaping Use Vaping status: Never Used Substance Use Topics Alcohol use: No Drug use: No MEDICATIONS: Reviewed Prior to Admiss (more content not included)... Normal [facility] HISTORY PHYSICAL HNO ID: [id number] Author: VIANEY SERRANO MD Service: Hepatology Author Type: Fellow Type: H&P Filed: 07/28/2024 12:41 Note Text: PROCEDURAL SEDATION HISTORY AND PHYSICAL EXAM SERVICE DATE: 07/28/2024 SERVICE TIME: 1241 Subjective HPI: This is a 53 year old female who presents with Post-RYGB weight regain PAST ANESTHESIA HISTORY:No history of adverse event PAST MEDICAL HISTORY Diagnosis Date Broken ankle Right ankle no surgery Hypothyroidism Melanoma (HCC) Pneumonia 11/25/2018 PAST SURGICAL HISTORY Procedure Laterality Date DILATION AND CURETTAGE DXAND/THER NONOBSTETRIC 08/05/2013 Polypectomy EGD BARIATRIC 10/2023 EGD W/O BRSH SPEC VARICIES INJ 11/05/2023 ENDOVENOUS LASER, 1ST VEIN 07/22, 12/22, 03/24 [address]SS[address] Linton GASTRIC BYPASS HX 2005 HYSTERECTOMY HX KNEE SURGERY HX Right 11/10/2019 ACL/MCL/Miniscus LIG/TRNSXJ FLP TUBE ABDL/VAG APPR UNI/BI 2009 MELANOMA OF SKIN BIOPSY SYN RPT MELANOMA OF SKIN EXCISION SYN RPT REPAIR UMBILICAL HERNIA 2002, 2003 mesh SKIN BIOPSY HX Prior to Admission medications as of 07/28/24 1112 Medication Sig Last Dose Taking CARAFATE [address] 1 tablet in cup with 15ml-30ml warm water. Allow to dissolve into a slurry and drink. Repeat FOUR times daily as directed. Start on 07/30/24. acetaminophen (TYLENOL) 500 mg/15 mL liqd Take 15 mL by mouth every 6 hours as needed for pain. Do not exceed 5 doses in 24 hours. ondansetron orally disintegrating (ZOFRAN ODT) 8 mg disintegrating tablet Take 1 tablet by mouth every 8 hours as needed for nausea/vomiting. scopolamine (TRANSDERM-SCOP) patch 1.5 mg/72 hr (delivers 1 mg over 3 days) Apply 1 Patch as directed every 72 hours. omeprazole (PRILOSEC) 40 mg capsule Take 1 capsule by mouth two times a day. Open capsule sprinkle over applesauce and take 30 minutes before breakfast and 30 minutes before dinner ergocalciferol, vitamin D2, (DRISDOL) 50,000 unit capsule Take 1 capsule by mouth once each week. levothyroxine (SYNTHROID) 100 mcg tablet Take 1 tablet by mouth once daily. Multivitamin capsule Take 1 capsule by mouth once daily. ALLERGIES No Known Allergies CARDIOVASCULAR:No chest pain, leg swelling and palpitations PULMONARY:No cough,wheezing and shortness of breath Objective PHYSICAL EXAM:The remainder of the physical exam is noncontributory AIRWAY: Airway Visualization of Uvula: Yes Mouth opening greater than 2 fingerbreadths: Yes Neck Full Range of Motion: Yes LUNGS: Lungs clear to auscultation CARDIAC: Regular rhythm,Regular rate Assessment/Plan ASA Class: II Patient OK for Sedation: Yes Sedation Goal: Anesthesia Provisional Diagnosis/Treatment Plan: Post-RYGB weight regain/ EGD EGBR TORe Sedation Goal: Anesthesia SIGNATURE: Vianey Serrano MD PATIENT NAME: Melissa Nichols DATE: July 28, 2024 TIME: 12:41 PM 2023 Normal [facility] NURSING PROGon 07-28-2024 NURSING PROG HNO ID: [id number] Author: JAMEL BO RN Service: ? Author Type: Registered Nurse Type: Nursing Progress Note Filed: 07/28/2024 15:56 Note Text: Pt resting in bed with no complaints at this time. Pt has family member at bedside. Pt and pt family member verbalized understanding of waiting on IP bed. Normal [facility] NURSING PROG HNO ID: [id number] Author: SUE SKINNER RN Service: ? Author Type: Registered Nurse Type: Nursing Progress Note Filed: 07/28/2024 11:03 Note Text: PRE OP LEARNING ASSESSMENT PROCEDURE/SURGERY: GI PROCEDURES: ESG READINESS TO LEARN COGNITIVE ABILITY: Alert and oriented MOTIVATION TO LEARN: Interested FAMILY SUPPORT: High - Very involved in pt care PATIENT LEARNS BEST BY: Individual Instruction FACTORS AFFECTING LEARNING: None PHYSICAL LIMITATIONS AFFECTING LEARNING: None Electronically Signed By: Sue Skinner RN In Department: GASTROENTEROLOGY Normal [facility] Upper GI endoscopyon 025 Upper GI endoscopy Addendum Number: 1 Addendum Date: 07/28/2024 2:27:[address] Micheal Thomas MD 07/28/2024 2:27:31 PM This report has been signed electronically by Micheal Thomas MD Q3 Patient Name: Melissa Nichlos Procedure Date: 07/28/2024 1:35 PM Date of : 1970 Admit Type: Outpatient Age: 53 Gender: Female Note Status: Addendum Attending MD: Micheal Thomas MD, [id number] Procedure: Upper GI endoscopy Indications: Morbid obesity Providers: Micheal Thomas MD Patient Profile: This is a 53 year old female. Refer to note in patient chart for documentation of history and physical. Referring Physician: Maranda Castro (Referring MD) Medicines: General Anesthesia Requesting Provider: Procedure: Pre-Anesthesia Assessment: - Prior to the procedure, a History and Physical was performed, and patient medications and allergies were reviewed. The patient's tolerance of previous anesthesia was also reviewed. The risks and benefits of the procedure and the sedation options and risks were discussed with the patient. All questions were answered, and informed consent was obtained. Prior Anticoagulants: The patient has taken no anticoagulant or antiplatelet agents. ASA Grade Assessment: III - A patient with severe systemic disease. After reviewing the risks and benefits, the patient was deemed in satisfactory condition to undergo the procedure. After obtaining informed consent, the endoscope was passed under direct vision. Throughout the procedure, the patient's blood pressure, pulse, and oxygen saturations were monitored continuously. The Endoscope was introduced through the mouth, and advanced to the anastomosis site of gastric bypass. The upper GI endoscopy was accomplished without difficulty. The patient tolerated the procedure well. Moderate Sedation: General anesthesia was administered by the anesthesia team. Findings: The examined esophagus was normal. The Z line was regular at 40 cm from incisors. The GE junction and hiatus were at 40 cm from incisors. Evidence of a Abisai-en-Y gastric bypass (RYGB) was found. The gastrojejunal anastomosis (GJA) was characterized by normal appearing mucosa. No ulcers, erosion, sutures or zeke. The GJA outlet was dilated 45 mm diameter and was traversed. The gastric pouch extended from 40 cm to 44 cm from the incisors. No gastro-gastric fistula found. The jejunum was normal at 60 cm (both Abisai/alimentary and blind limbs). No food or debris in the blind limb. The small bowel was not dilated and there was no evidence of excess fluid or distal obstruction. The jejuno-jejunal anastomosis was not evaluated. At the conclusion of the diagnostic endoscopy 120 mL of a dilute simethicone solution was instilled in the duodenum and an esophageal overtube with removable obturator was placed into the esophagus over the endoscope. Then the scope was exchanged for an upper double channel scope. REVISION OF GASTROJEJUNAL ANASTOMOSIS Attention was then given to the gastrojejunal anastomosis. The margin of the anastomosis was treated with Argon Plasma Coagulation (APC; forced APC, 0.8 L/min, 70 Moralez). The suturing device was then used to place 9 stitches into the tissue, in pursestring fashion, surrounding the anastomosis. The suture was then tightened and secured over a 6 mm bougie. Additional 1 interrupted suture was placed to reinforce pursestring sutures and for gastroplasty. Following the procedure a diagnostic endoscope was used to evaluate the anatomy, to look for signs of trauma or hemorrhage, and to remove the overtube. There were no mucosal injuries to the proximal esophagus. 2 syringes of hemostatic gel matrix (Purastat) were applied to the site. Impression: - No specimens collected. Estimated Blood Loss: Estimated blood loss was minimal. Recommendation: - Ad[facility] patient to [facility] for ongoing care. - Strict NPO overnight except necessary medications given in liquid form or crushed with sips of water. - IV hydration while NPO. - Start PPI 40 mg IV q12h. - Please order Scheduled Zofran 8 mg IV q8h. - Also place PRN orders for additional Antiemetics with rectal compazine, ativan, or phenergen as needed. - Do not give reglan. - Please ambulate with assistance as needed. - No NG tube or BiPAP. - No KUB or CT scan abdomen (without first discussing with GI Bariatric Endoscopy team, Dr. Thomas team, please page GI fellow). - No heavy lifting for 4 weeks. - Pain control PRN per primary team (avoid opiates if at all possible) - The morning post-procedure may start sips of water (2oz every hour) as tolerated. - Liquid protein diet for 45 days as per protocol. Outpatient diet guidelines printed and provided. - All medications to be converted to liquid and crushable form for 6 weeks at discharge. - Need to go (more content not included)... Normal [facility] CNPNon 07-21-2024 CNPN Telephone (GASTPR) MELISSA NICHOLS ([id number]) 1970 F Date Time Provider Department 07/21/24 CHAVA LI [facility] During your visit today, we recorded the following information about you: Chava Li RN 07/21/2024 2:27 PM Signed Left voicemail with patient regarding the following information: Procedure is scheduled for FridayJuly 28 at 10:30am. Please arrive by 9:30am to check in at the endoscopy unit. Gastroenterology is located at desk Q31 in the [facility] ([facility]/[address] [place] [address]). Park in the [facility] [address] Parking Garage or use [facility]. Visit [email or web address] for up-to-date visitor restrictions and mask requirements. Construction alerts and updates are available online at [email or web address] You will be receiving IV (intravenous) sedation. Your ride MUST be present upon arrival to and MUST remain on the [facility] for the duration of the procedure or your procedure will be cancelled. You MUST have a responsible person come with you and either drive you home or be with you while riding in public transportation (bus or taxi). You are NOT allowed to drive or leave the Endoscopy Center alone. Your procedure will be cancelled if your ride cannot be confirmed. Public transportation by yourself is not allowed. Most procedures take approximately 45-60 minutes. You and your responsible person must remain in the Endoscopy Center and be reachable by phone until you recover from your sedation. Most patients are discharged 1-2 hours after the procedure is completed. If you are taking Coumadin (Warfarin), Clopidogrel (Plavix), Aspirin, Ticlid, Aggrenox or other blood thinners, you must speak with your prescribing physician or the specialist performing the Endoscopy procedure at least 2 weeks PRIOR to your scheduled appointment. If you are taking Insulin?, long-acting Insulin (NPH), Lantus, Humalog, 70/30 Insulin, or any other medication to lower your blood sugar, contact your prescribing physician for instructions PRIOR to your procedure If you are taking medication for weight loss, contact your prescribing physician at least 1 week PRIOR to your procedure If you are taking medication for High Blood Pressure, Seizures, Asthma, Thyroid Disease, Irregular Heartbeat or taking Prednisone, you must take your medication on the morning of your procedure with a sip of water. If you take potent water pills, such as Lasix or Metolozone, do NOT take these the day before your procedure. Resume taking your water pill after the Endoscopy has been completed. If you take Iron pills, stop taking them 7 days PRIOR to the procedure. If you are taking non-steroidal anti-inflammatory drugs, such as Ibuprofen, (Motrin, Aleve), stop taking them 5 day PRIOR to the procedure. For all procedures including colonoscopy, EGD, EUS, ERCP, or enteroscopy, do NOT eat or drink ANYTHING after midnight unless otherwise indicated in your bowel prep instructions. If you have any questions, please call . If you need to cancel or reschedule your Endoscopy procedure, please call , option 1. Allergies As of Date: 07/21/2024 (No Known Allergies) Date Reviewed: 07/16/2024 Reviewed by: Angie Roth, MARGARETH - Fully Assessed Prescriptions as of 07/21/2024 - CARAFATE [address] 1 tablet in cup with 15ml-30ml warm water. Allow to dissolve into a slurry and drink. Repeat FOUR times daily as directed. Start on 07/30/24. - acetaminophen (TYLENOL) 500 mg/15 mL liqd Take 15 mL by mouth every 6 hours as needed for pain. Do not exceed 5 doses in 24 hours. - ondansetron orally disintegrating (ZOFRAN ODT) 8 mg disintegrating tablet Take 1 tablet by mouth every 8 hours as needed for nausea/vomiting. - scopolamine (TRANSDERM-SCOP) patch 1.5 mg/72 hr (delivers 1 mg over 3 days) Apply 1 Patch as directed every 72 hours. - omeprazole (PRILOSEC) 40 mg capsule Take 1 capsule by mouth two times a day. Open capsule sprinkle over applesauce and take 30 minutes before breakfast and 30 minutes before dinner - ergocalciferol, vitamin D2, (DRISDOL) 50,000 unit capsule Take 1 capsule by mouth once each week. - levothyroxine (SYNTHROID) 100 mcg tablet Take 1 tablet by mouth once daily. - Multivitamin capsule Take 1 capsule by mouth once daily. Problem List As Of Date 07/21/2024 Noted Resolved UTI (lower urinary tract infection) [N39.0] 08/18/2013 08/18/2013 Complex endometrial hyperplasia [N85.01] 09/03/2013 Anemia [D64.9] 12/13/2014 DJD (degenerative joint disease) [M19.90] 12/13/2014 History of gastric bypass [Z98.84] 02/09/2017 Hypocalcemia [E83.51] 01/04/2016 Hypothyroidism [E03.9] 12/13/2014 Positive JESSICA (antinuclear antibody) [R76.8] 02/09/2017 Vitamin D d (more content not included)... Normal [facility]20[facility]24 [facility] MELISSA NICHOLS ([id number]) 1970 F Date Time Provider Department 07/20/24 GAYLE LEAL [facility] During your visit today, we recorded the following information about you: Gayle Leal RN 07/20/2024 10:41 AM Signed MELISSA NICHOLS ([place]son: [id number]) Rx #: [id number] Status Sent to Plan today Next Steps The plan will fax you a determination, typically within 1 to 5 business days. Drug Sucralfate 1GM/10ML suspension Form [facility] Specialty and Non-Specialty Medication Prior Authorization Form Aleshia Mann 07/22/2024 3:42 PM Signed [facility] fax authorizing sucralfate suspension, scanned in [facility] Approval dates: 07/22/24 - 09/21/24 Aleshia Mann Allergies As of Date: 07/20/2024 (No Known Allergies) Date Reviewed: 07/16/2024 Reviewed by: Angie Roth RD - Fully Assessed Reason for Visit: Medication Authorization [6017] Prescriptions as of 07/22/2024 - CARAFATE [address] 1 tablet in cup with 15ml-30ml warm water. Allow to dissolve into a slurry and drink. Repeat FOUR times daily as directed. Start on 07/30/24. - acetaminophen (TYLENOL) 500 mg/15 mL liqd Take 15 mL by mouth every 6 hours as needed for pain. Do not exceed 5 doses in 24 hours. - ondansetron orally disintegrating (ZOFRAN ODT) 8 mg disintegrating tablet Take 1 tablet by mouth every 8 hours as needed for nausea/vomiting. - scopolamine (TRANSDERM-SCOP) patch 1.5 mg/72 hr (delivers 1 mg over 3 days) Apply 1 Patch as directed every 72 hours. - omeprazole (PRILOSEC) 40 mg capsule Take 1 capsule by mouth two times a day. Open capsule sprinkle over applesauce and take 30 minutes before breakfast and 30 minutes before dinner - ergocalciferol, vitamin D2, (DRISDOL) 50,000 unit capsule Take 1 capsule by mouth once each week. - levothyroxine (SYNTHROID) 100 mcg tablet Take 1 tablet by mouth once daily. - Multivitamin capsule Take 1 capsule by mouth once daily. Problem List As Of Date 07/20/2024 Noted Resolved UTI (lower urinary tract infection) [N39.0] 08/18/2013 08/18/2013 Complex endometrial hyperplasia [N85.01] 09/03/2013 Anemia [D64.9] 12/13/2014 DJD (degenerative joint disease) [M19.90] 12/13/2014 History of gastric bypass [Z98.84] 02/09/2017 Hypocalcemia [E83.51] 01/04/2016 Hypothyroidism [E03.9] 12/13/2014 Positive JESSICA (antinuclear antibody) [R76.8] 02/09/2017 Vitamin D deficiency [E55.9] 12/13/2014 Pain in right knee [M25.561] 11/19/2019 S/P ACL reconstruction [Z98.890] 11/19/2019 Impaired range of motion of right knee [M25.661]11/19/2019 12/09/2022 Decreased strength involving knee joint [R29.89*11/19/2019 Abnormality of gait [R26.9] 11/19/2019 12/09/2022 Family history of rectal cancer [Z80.0] 12/13/2022 Encounter Status:Closed by GAYLE LEAL on 07/20/24 Normal [facility] 25(OH)D3 [facility] 2024 25-hydroxyvitamin D3 [Mass/Vol] 67.2 ng/mL Normal 31.0-80.0 [facility] Comment on above: Order Comment: Speci men Type: BLOOD SPECIMENOrdering Facility: [facility] Address: [address] [place] [address] Result Comment: Clas sification of 25 [place] Vitamin D status: Deficiency/Insufficiency: < or = 30 ng/ml. Sufficiency/Optimal Levels: 31-80 ng/mL Toxicity: > 100 ng/mL. Test performed by chemiluminescent immunoassay. Performed By: #### 1 7859-0, 1988-07 ####[facility] [id number] [place] [address] [place] ALBUMIN/CREATININE RATIO, UR INEon 07-14-2024 Albumin DL <= 20 mg/L (U) [Mass/Vol] mg/dL Normal [facility] Comment on above: Order Comment: Speci men Type: URINE SPECIMENOrdering Facility: [facility] Address: [address] [place] [address] Performed By: #### U ACR, 2888-6, UTOX2 ####[facility] [id number] [place] [address] [place] Albumin/Creatinine (U) [Mass ratio] <9 Normal <30 [facility] Comment on above: Order Comment: Speci men Type: URINE SPECIMENOrdering Facility: [facility] Address: [address] [place] [address] Result Comment: Adul t Male and Female Nephrotic Criteria: <30 mg/g is considered normal to mildly increased 30-300 mg/g is considered moderately increased >300 mg/g is considered severely increased KDIGO. (2013). KDIGO 2012 Clinical Practice Guideline for the Evaluation and Management of Chronic Kidney Disease. Official Journal of the International Society of Nephrology, 3(1), 1-150. Performed By: #### U ACR, 2888-6, UTOX2 ####[facility] [id number] [place] [address] [place] Creatinine (U) [Mass/Vol] 139.2 mg/dL Normal 20.0-300.0 [facility] Comment on above: Order Comment: Speci men Type: URINE SPECIMENOrdering Facility: [facility] Address: [address] [place] [address] Performed By: #### U ACR, 2888-6, UTOX2 ####[facility] [id number] [place] [address] [place] CBC W Auto Differential pane l (Bld)on 07-14-2024 Basophils (Bld) [#/Vol] 0.06 10*3/uL Normal <0.11 [facility] Comment on above: Order Comment: Speci men Type: BLOOD SPECIMENOrdering Facility: [facility] Address: [address] [place] [address] Performed By: #### 5 7021-8 ####[facility] [id number] [place] [address] [place] Basophils/100 WBC (Bld) 1.9 % Normal [facility] Comment on above: Order Comment: Speci men Type: BLOOD SPECIMENOrdering Facility: [facility] Address: [address] [place] [address] Performed By: #### 5 7021-8 ####[facility] [id number] [place] [address] [place] Differential cell count method Nom (Bld) Auto Normal [facility] Comment on above: Order Comment: Speci men Type: BLOOD SPECIMENOrdering Facility: [facility] Address: [address] [place] [address] Performed By: #### 5 7021-8 ####[facility] [id number] [place] [address] [place] Eosinophils (Bld) [#/Vol] 0.17 10*3/uL Normal <0.46 [facility] Comment on above: Order Comment: Speci men Type: BLOOD SPECIMENOrdering Facility: [facility] Address: [address] [place] [address] Performed By: #### 5 7021-8 ####[facility] [id number] [place] [address] [place] Eosinophils/100 WBC (Bld) 5.4 % Normal [facility] Comment on above: Order Comment: Speci men Type: BLOOD SPECIMENOrdering Facility: [facility] Address: [address] [place] [address] Performed By: #### 5 7021-8 ####[facility] [id number] [place] [address] [place] Erythrocyte distribution width (RBC) [Ratio] 12.3 % Normal 11.5-15.0 [facility] Comment on above: Order Comment: Speci men Type: BLOOD SPECIMENOrdering Facility: [facility] Address: [address] [place] [address] Performed By: #### 5 7021-8 ####[facility] [id number] [place] [address] [place] Hematocrit (Bld) [Volume fraction] 38.6 % Normal 36.0-46.0 [facility] Comment on above: Order Comment: Speci men Type: BLOOD SPECIMENOrdering Facility: [facility] Address: [address] [place] [address] Performed By: #### 5 7021-8 ####[facility] [id number] [place] [address] [place] Hemoglobin (Bld) [Mass/Vol] 12.4 g/dL Normal 11.5-15.5 [facility] Comment on above: Order Comment: Speci men Type: BLOOD SPECIMENOrdering Facility: [facility] Address: [address] [place] [address] Performed By: #### 5 7021-8 ####[facility] [id number] [place] [address] [place] Immature granulocytes (Bld) [#/Vol] 10*3/uL Normal <0.10 [facility] Comment on above: Order Comment: Speci men Type: BLOOD SPECIMENOrdering Facility: [facility] Address: [address] [place] [address] Performed By: #### 5 7021-8 ####[facility] [id number] [place] [address] [place] Immature granulocytes/100 WBC (Bld) 0.0 % Normal [facility] Comment on above: Order Comment: Speci men Type: BLOOD SPECIMENOrdering Facility: [facility] Address: [address] [place] [address] Performed By: #### 5 7021-8 ####[facility] [id number] [place] [id number] [place] Lymphocytes (Bld) [#/Vol] 1.13 10*3/uL Normal 1.00-4.00 [facility] Comment on above: Order Comment: Speci men Type: BLOOD SPECIMENOrdering Facility: [facility] Address: [address] [place] [address] Performed By: #### 5 7021-8 ####[facility] [id number] [place] [address] [place] Lymphocytes/100 WBC (Bld) 35.6 % Normal [facility] Comment on above: Order Comment: Speci men Type: BLOOD SPECIMENOrdering Facility: [facility] Address: [address] [place] [address] Performed By: #### 5 7021-8 ####[facility] [id number] [place] [address] [place] MCH (RBC) [Entitic mass] 30.8 pg Normal 26.0-34.0 [facility] Comment on above: Order Comment: Speci men Type: BLOOD SPECIMENOrdering Facility: [facility] Address: [address] [place] [address] Performed By: #### 5 7021-8 ####[facility] [id number] [place] [address] [place] MCHC (RBC) [Mass/Vol] 32.1 g/dL Normal 30.5-36.0 [facility] Comment on above: Order Comment: Speci men Type: BLOOD SPECIMENOrdering Facility: [facility] Address: [address] [place] [address] Performed By: #### 5 7021-8 ####[facility] [id number] [place] [address] [place] MCV (RBC) [Entitic vol] 95.8 fL Normal 80.0-100.0 [facility] Comment on above: Order Comment: Speci men Type: BLOOD SPECIMENOrdering Facility: [facility] Address: [address] [place] [address] Performed By: #### 5 7021-8 ####[facility] [id number] [place] [address] [place] Monocytes (Bld) [#/Vol] 0.37 10*3/uL Normal <0.87 [facility] Comment on above: Order Comment: Speci men Type: BLOOD SPECIMENOrdering Facility: [facility] Address: [address] [place] [address] Performed By: #### 5 7021-8 ####[facility] [id number] [place] [address] [place] Monocytes/100 WBC (Bld) 11.7 % Normal [facility] Comment on above: Order Comment: Speci men Type: BLOOD SPECIMENOrdering Facility: [facility] Address: [address] [place] [address] Performed By: #### 5 7021-8 ####[facility] [id number] [place] [address] [place] Neutrophils (Bld) [#/Vol] 1.44 10*3/uL Low 1.45-7.50 [facility] Comment on above: Order Comment: Speci men Type: BLOOD SPECIMENOrdering Facility: [facility] Address: [address] [place] [address] Performed By: #### 5 7021-8 ####[facility] [id number] [place] [address] [place] Neutrophils/100 WBC (Bld) 45.4 % Normal [facility] Comment on above: Order Comment: Speci men Type: BLOOD SPECIMENOrdering Facility: [facility] Address: [address] [place] [address] Performed By: #### 5 7021-8 ####[facility] [id number] [place] [address] [place] Nucleated RBC (Bld) [#/Vol] 10*3/uL Normal <0.01 [facility] Comment on above: Order Comment: Speci men Type: BLOOD SPECIMENOrdering Facility: [facility] Address: [address] [place] [address] Performed By: #### 5 7021-8 ####[facility] [id number] [facility] [place] [address] [place] Nucleated RBC/100 WBC (Bld) [Ratio] 0.0 /100 WBC Normal [facility] Comment on above: Order Comment: Speci men Type: BLOOD SPECIMENOrdering Facility: [facility] Address: [address] [place] [address] Performed By: #### 5 7021-8 ####[facility] [id number] [place] [address] [place] Platelet mean volume (Bld) [Entitic vol] 9.3 fL Normal 9.0-12.7 [facility] Comment on above: Order Comment: Speci men Type: BLOOD SPECIMENOrdering Facility: [facility] Address: [address] [place] [address] Performed By: #### 5 7021-8 ####[facility] [id number] [place] [address] [place] Platelets (Bld) [#/Vol] 216 10*3/uL Normal 150-400 [facility] Comment on above: Order Comment: Speci men Type: BLOOD SPECIMENOrdering Facility: [facility] Address: [address] [place] [address] Performed By: #### 5 7021-8 ####[facility] [id number] [place] [address] [place] RBC (Bld) [#/Vol] 4.03 10*6/uL Normal 3.90-5.20 [facility] Comment on above: Order Comment: Speci men Type: BLOOD SPECIMENOrdering Facility: [facility] Address: [address] [place] [address] Performed By: #### 5 7021-8 ####[facility] [id number] [place] [address] [place] WBC (Bld) [#/Vol] 3.17 10*3/uL Low 3.70-11.00 [facility] Comment on above: Order Comment: Speci men Type: BLOOD SPECIMENOrdering Facility: [facility] Address: [address] [place] [address] Performed By: #### 5 7021-8 ####[facility] [id number] [address] [place] Comp Metab 2000 Pnl SerPlon 07-14-2024 Bilirubin [Mass/Vol] 0.4 mg/dL Normal 0.2-1.3 [facility] Comment on above: Order Comment: Speci men Type: BLOOD SPECIMENOrdering Facility: [facility] Address: [address] [place] [address] Performed By: #### 2 4323-8, 64141-8, 64809-4, 6-4 ####[facility] [id number] [address] [place] Performed By: #### L IVFIB ####[facility] [id number] [address] [place] Comprehensive metabolic 2000 panelon 07-14-2024 Albumin [Mass/Vol] 4.4 g/dL Normal 3.9-4.9 [facility] Comment on above: Order Comment: Speci men Type: BLOOD SPECIMENOrdering Facility: [facility] Address: [address] [place] [address] Performed By: #### 2 4323-8, 60528-1, 06510-7, 6-4 ####[facility] [id number] [place] [address] [place] ALP [Catalytic activity/Vol] 90 U/L Normal 34-123 [facility] Comment on above: Order Comment: Speci men Type: BLOOD SPECIMENOrdering Facility: [facility] Address: [address] [place] [address] Performed By: #### 2 4323-8, 71017-6, 20512-9, 6-4 ####[facility] [id number] [place] [address] [place] ALT [Catalytic activity/Vol] 29 U/L Normal 7-38 [facility] Comment on above: Order Comment: Speci men Type: BLOOD SPECIMENOrdering Facility: [facility] Address: [address] [place] [address] Performed By: #### 2 4323-8, 08185-6, 39225-4, 2275-4 ####[facility] [id number] [place] [address] [place] Anion gap [Moles/Vol] 9 mmol/L Normal 8-15 [facility] Comment on above: Order Comment: Speci men Type: BLOOD SPECIMENOrdering Facility: [facility] Address: [address] [place] [address] Performed By: #### 2 4323-8, 38813-5, 45076-7, 2275-4 ####[facility] [id number] [place] [address] [place] AST [Catalytic activity/Vol] 27 U/L Normal 13-35 [facility] Comment on above: Order Comment: Speci men Type: BLOOD SPECIMENOrdering Facility: [facility] Address: [address] [place] [address] Performed By: #### 2 4323-8, 62229-6, 76628-2, 2275-4 ####[facility] [id number] [place] [id number] [place] Calcium [Mass/Vol] 9.5 mg/dL Normal 8.5-10.2 [facility] Comment on above: Order Comment: Speci men Type: BLOOD SPECIMENOrdering Facility: [facility] Address: [address] [place] [address] Performed By: #### 2 4323-8, 49771-1, 99610-9, 6-4 ####[facility] [id number] [place] [address] [place] Chloride [Moles/Vol] 104 mmol/L Normal 98-107 [facility] Comment on above: Order Comment: Speci men Type: BLOOD SPECIMENOrdering Facility: [facility] Address: [address] [place] [address] Performed By: #### 2 4323-8, 17093-7, 18230-8, 2275-4 ####[facility] [id number] [place] [address] [place] CO2 [Moles/Vol] 29 mmol/L Normal 22-30 [facility] Comment on above: Order Comment: Speci men Type: BLOOD SPECIMENOrdering Facility: [facility] Address: [address] [place] [address] Performed By: #### 2 4323-8, 36025-5, 84622-5, 2275-4 ####[facility] [id number] [place] [address] [place] Creatinine [Mass/Vol] 0.76 mg/dL Normal 0.58-0.96 [facility] Comment on above: Order Comment: Speci men Type: BLOOD SPECIMENOrdering Facility: [facility] Address: [address] [place] [address] Performed By: #### 2 4323-8, 99556-2, 42331-1, 6-4 ####[facility] [id number] [place] [address] Creatinine and Glomerular filtration rate.predicted panel (S/P/Bld) 94 mL/min/1.73m??? Normal >=60 [facility] Comment on above: Order Comment: Yonathan hubbard Type: BLOOD SPECIMENOrdering Facility: [facility] Address: [address] [place] [address] Result Comment: Lana mated Glomerular Filtration Rate (eGFR) is calculated using the 2020 CKD-EPI creatinine equation. This equation utilizes serum creatinine, sex, and age as parameters. The creatinine assay has traceable calibration to isotope dilution-mass spectrometry. Refer to KDIGO guidelines for clinical interpretation. In patients with unstable renal function, e.g. those with acute kidney injury, the eGFR may not accurately reflect actual GFR. Performed By: #### 2 4323-8, 81599-2, 66901-5, 6-4 ####[facility] [id number] [address] [place] Glucose [Mass/Vol] 84 mg/dL Normal 74-99 [facility] Comment on above: Order Comment: Yonathan hubbard Type: BLOOD SPECIMENOrdering Facility: [facility] Address: [address] [place] [address] Result Comment: The [place] Diabetes Association (ADA) provides guidance for cutoff values for fasting glucose and random glucose. The ADA defines fasting as no caloric intake for at least 8 hours. Fasting plasma glucose results between 100 to 125 mg/dL indicate increased risk for diabetes (prediabetes). Fasting plasma glucose results greater than or equal to 126 mg/dL meet the criteria for diagnosis of diabetes. In the absence of unequivocal hyperglycemia, results should be confirmed by repeat testing. In a patient with classic symptoms of hyperglycemia or hyperglycemic crisis, random plasma glucose results greater than or equal to 200 mg/dL meet the criteria for diagnosis of diabetes. Reference: Standards of Medical Care in Diabetes 2016, Indian Diabetes Association. Diabetes Care. 2016.39(Suppl 1). Performed By: #### 2 4323-8, 67899-2, 41032-3, 6-4 ####[facility] [id number] [place] [id number] [address] [place] Potassium [Moles/Vol] 3.8 mmol/L Normal 3.7-5.1 [facility] Comment on above: Order Comment: Speci men Type: BLOOD SPECIMENOrdering Facility: [facility] Address: [address] [place] [address] Performed By: #### 2 4323-8, 92878-2, 04350-1, 6-4 ####[facility] [id number] [address] [place] [address] [place] Protein [Mass/Vol] 7.1 g/dL Normal 6.3-8.0 [facility] Comment on above: Order Comment: Speci men Type: BLOOD SPECIMENOrdering Facility: [facility] Address: [address] [place] [address] Performed By: #### 2 4323-8, 49726-6, 61197-8, 2275-4 ####[facility] [id number] [address], [facility] [place] Sodium [Moles/Vol] 142 mmol/L Normal 136-144 [facility] Comment on above: Order Comment: Speci men Type: BLOOD SPECIMENOrdering Facility: [facility] Address: [address] [place] [address] Performed By: #### 2 4323-8, 07439-2, 34515-3, 2275-4 ####[facility] [id number] [facility] [address] [place] [address] [place] Urea nitrogen [Mass/Vol] 19 mg/dL Normal 7-21 [facility] Comment on above: Order Comment: Speci men Type: BLOOD SPECIMENOrdering Facility: [facility] Address: [address] [place] [address] Performed By: #### 2 4323-8, 55443-7, 43351-3, 6-4 ####[facility] [id number] [facility] [address] [id number] [place] Ferritin [facility] 2024 Ferritin [Mass/Vol] 312.0 ng/mL High 14.7-205.1 [facility] Comment on above: Order Comment: Speci men Type: BLOOD SPECIMENOrdering Facility: [facility] Address: [address] [place] [address] Performed By: #### 2 4323-8, 88460-7, 30227-8, 2276-4 ####[facility] [id number] [place] [address] [place] Folate [facility] 07-15-19 25 Folate [Mass/Vol] ng/mL Normal >4.7 [facility] Comment on above: Order Comment: Speci men Type: BLOOD SPECIMENOrdering Facility: [facility] Address: [address] [place] [address] Result Comment: A re sult of > 20 ng/mL is not necessarily indicative of a pathologic or treatable condition: it reflects a limitation of the test methodology. Assay reference range: 4.8 to 24.2 ng/mL. Suitable for detection of folate deficiency. Reference: Folate III (Folate III) [package insert V 1.0 Andorran]. [facility], [place], [place]: March 2015. Performed By: #### 2 132-9, 2284-8, 2731-8 ####[facility] [id number] [place] [id number] [place] H. pylori IgG IA Qlon 2024 H. PYLORI IGG, QUAL Negative Normal Negative [facility] Comment on above: Order Comment: Speci men Type: BLOOD SPECIMENOrdering Facility: [facility] Address: [address] [place] [address] Result Comment: Jakob ot exclude H. pylori infection if the specimen collected 3-4 weeks after onset of symptoms. Performed By: #### 1 7859-0, 1988-07 ####[facility] [id number] [address] [place] HbA1c (Bld)on 07-14-2024 Average glucose Estimated from glycated hemoglobin (Bld) [Mass/Vol] 105 mg/dL Normal [facility] Comment on above: Order Comment: Yonathan hubbard Type: BLOOD SPECIMENOrdering Facility: [facility] Address: [address] [place] [address] Result Comment: eAG: (Estimated average glucose) is a calculated value from HgbA1c and is medical detail representative of the average blood glucose level in the last 2-3 month period. Performed By: #### 5 5454-3 ####[facility] [id number] [place] [address] [place] [facility] HbA1c (Bld) [Mass fraction] 5.3 % Normal 4.3-5.6 [facility] Comment on above: Order Comment: Yonathan hubbard Type: BLOOD SPECIMENOrdering Facility: [facility] Address: [address] [place] [address] Result Comment: Amer ican Diabetes Association guidelines indicate that patients with HgbA1c in the range 5.7-6.4% are at increased risk for development of diabetes, and intervention by lifestyle modification may be beneficial. HgbA1c greater or equal to 6.5% is considered diagnostic of diabetes. Performed By: #### 5 5454-3 ####[facility] LABIA [id number] [place] [id number] [place] Insulin SerPl-aCncon 025 Insulin Qn 3.1 uU/mL Normal 2.6-24.9 [facility] Comment on above: Order Comment: Yonathan hubbard Type: BLOOD SPECIMENOrdering Facility: [facility] Address: [address] [place] [address] Performed By: #### 2 0448-7 ####[facility] LABIA [id number] [place] [id number] [place] Iron and Iron binding capaci ty panelon 07-14-2024 Iron [Mass/Vol] 103 ug/dL Normal 41-186 [facility] Comment on above: Order Comment: Speci men Type: BLOOD SPECIMENOrdering Facility: [facility] Address: [address] [place] [address] Performed By: #### 2 4323-8, 40818-3, 45679-0, 6-4 ####[facility] [id number] [address] [place] [address] [place] Iron binding capacity [Mass/Vol] 301 ug/dL Normal 232-386 [facility] Comment on above: Order Comment: Speci men Type: BLOOD SPECIMENOrdering Facility: [facility] Address: [address] [place] [address] Performed By: #### 2 4323-8, 28606-0, 27151-8, 2275-4 ####[facility]IA [id number] [address] [address] [place] Iron/TIBC [Molar ratio] 34.2 % Normal 15.0-57.0 [facility] Comment on above: Order Comment: Speci men Type: BLOOD SPECIMENOrdering Facility: [facility] Address: [address] [place] [address] Performed By: #### 2 4323-8, 24836-3, 33423-5, 2275-4 ####[facility]IA [id number] [address] [address] [place] LIVER FIBROSIS AND ACTIVITYo n 07-14-2024 Tyxkf-4-Xpzdccpeenfto [Mass/Vol] 183 mg/dL Normal 110-270 [facility] Comment on above: Order Comment: Speci men Type: BLOOD SPECIMENOrdering Facility: [facility] Address: [address] [place] [address] Performed By: #### L IVFIB ####[facility] [id number] [facility] [address] [place] [address] [place] ALT [Catalytic activity/Vol] 38 U/L High 10-35 [facility] Comment on above: Order Comment: Speci men Type: BLOOD SPECIMENOrdering Facility: [facility] Address: [address] [place] [address] Performed By: #### L IVFIB ####[facility] [id number] [place] [address] [place] Apolipoprotein A-I [Mass/Vol] 154 mg/dL Normal >124 [facility] Comment on above: Order Comment: Speci men Type: BLOOD SPECIMENOrdering Facility: [facility] Address: [address] [place] [address] Performed By: #### L IVFIB ####[facility]CL[facility] [id number] [address] [place] FIBROSIS INTERPRETATION No Fibrosis Normal [facility] Comment on above: Order Comment: Speci men Type: BLOOD SPECIMENOrdering Facility: [facility] Address: [address] [place] [address] Result Comment: Fibr osis Interpretation Table: FibroTest Score: >=0 and <=0.21 - Metavir Score: F0 No Fibrosis FibroTest Score: >0.21 and <=0.27 - Metavir Score: F0-F1 No Fibrosis FibroTest Score: >0.27 and <=0.31 - Metavir Score: F1 Minimal Fibrosis FibroTest Score: >0.31 and <=0.48 - Metavir Score: F1-F2 Minimal Fibrosis FibroTest Score: >0.48 and <=0.58- Metavir Score: F2 Moderate Fibrosis FibroTest Score: >0.58 and <=0.72 - Metavir Score: F3 Advanced Fibrosis FibroTest Score: >0.72 and <=0.74 - Metavir Score: F3-F4 Advanced Fibrosis FibroTest Score: >0.74 and <=1.00- Metavir Score: F4 Severe Fibrosis Performed By: #### L IVFIB ####[facility] [id number] [address] [place] Fibrosis stage Ql F0 Normal [facility] Comment on above: Order Comment: Speci men Type: BLOOD SPECIMENOrdering Facility: [facility] Address: [address] [place] [address] Performed By: #### L IVFIB ####[facility] [id number] [place] [address] [place] Gamma glutamyl transferase [Catalytic activity/Vol] 11 U/L Normal 6-42 [facility] Comment on above: Order Comment: Speci men Type: BLOOD SPECIMENOrdering Facility: [facility] Address: [address] [place] [address] Performed By: #### L IVFIB ####[facility]IA [id number] [place] [address] [place] Haptoglobin [Mass/Vol] 53 mg/dL Normal 31-238 [facility] Comment on above: Order Comment: Speci men Type: BLOOD SPECIMENOrdering Facility: [facility] Address: [address] [place] [address] Performed By: #### L IVFIB ####[facility] [id number] [place] [address] [place] NECROINFLAM ACTIVITY INTERP No Activity Normal [facility] Comment on above: Order Comment: Speci men Type: BLOOD SPECIMENOrdering Facility: [facility] Address: [address] [place] [address] Result Comment: Necr oinflammatory Activity Interpretation Table: ActiTest Score: >=0 and <=0.17 - Metavir Score: A0 No activity ActiTest Score: >0.17 and <=0.29 - Metavir Score: A0-A1 No activity ActiTest Score: >0.29 and <=0.36 - Metavir Score: A1 Minimal activity ActiTest Score: >0.36 and <=0.52 - Metavir Score: A1-A2 Minimal activity ActiTest Score: >0.52 and <=0.60 - Metavir Score: A2 Significant activity ActiTest Score: >0.60 and <=0.62 - Metavir Score: A2-A3 Significant activity ActiTest Score: >0.62 and <=1.00 - Metavir Score: A3 Severe activity Performed By: #### L IVFIB ####[facility] [id number] [address], [address] Necroinflammatory activity grade Ql A0 Normal [facility] Comment on above: Order Comment: Speci men Type: BLOOD SPECIMENOrdering Facility: [facility] Address: [address] [place] [address] Performed By: #### L IVFIB ####[facility]CL[facility] [id number] [address] [place] [address] [facility] [place] Lipid 1996 panelon 5 Cholesterol [Mass/Vol] 199 mg/dL Normal <200 [facility] Comment on above: Order Comment: Speci men Type: BLOOD SPECIMENOrdering Facility: [facility] Address: [address] [place] [address] Result Comment: <200 mg/dL, Desirable 200-239 mg/dL, Borderline high >239 mg/dL, High Performed By: #### 2 4323-8, 92324-7, 01788-6, 6-4 ####[facility] [id number] [address] [place] Cholesterol in HDL [Mass/Vol] 53 mg/dL Normal >39 [facility] Comment on above: Order Comment: Speci men Type: BLOOD SPECIMENOrdering Facility: [facility] Address: [address] [place] [address] Result Comment: 40-5 9 mg/dL, Acceptable >59 mg/dL, High: Negative risk factor for coronary heart disease <40 mg/dL, Low: Positive risk factor for coronary heart disease Performed By: #### 2 4323-8, 24406-9, 38851-1, 6-4 ####[facility] [id number] [address] [place] [address] [place] Cholesterol in LDL [Mass/Vol] 133 mg/dL High <100 [facility] Comment on above: Order Comment: Speci men Type: BLOOD SPECIMENOrdering Facility: [facility] Address: [address] [place] [address] Result Comment: <100 mg/dL, Optimal 100-129 mg/dL, Near optimal/above optimal 130-159 mg/dL, Borderline high 160-189 mg/dL, High >189 mg/dL, Very high Secondary prevention optimal LDL Cholesterol levels are recommended to be < 70 mg/dL Performed By: #### 2 4323-8, 51757-1, 72233-4, 6-4 ####[facility] [id number] [address] [address] [place] Cholesterol in LDL/Cholesterol in HDL [Mass ratio] 2.51 {ratio} Normal <2.54 [facility] Comment on above: Order Comment: Yonathan men Type: BLOOD SPECIMENOrdering Facility: [facility] Address: [address] [place] [address] Result Comment: Refe rence: 1. National Cholesterol Education Program ATP III Guideline At-A-Glance Quick Desk Reference: National Heart, Lung, and Blood Collins. National Institutes of Health. 2001: NIH Publication No. 01-3305. 2. An International Atherosclerosis Society position paper: global recommendations for the management of dyslipidemia: executive summary, Atherosclerosis. 2014: 232(2):410-413. Performed By: #### 2 4323-8, 61463-1, 92957-4, 2275-4 ####[facility] [id number] [address] [place] [address] [place] Cholesterol in VLDL [Mass/Vol] 13 mg/dL Normal <30 [facility] Comment on above: Order Comment: Diannepiyush hubbard Type: BLOOD SPECIMENOrdering Facility: [facility] Address: [address] [place] [address] Performed By: #### 2 4323-8, 81587-5, 48235-8, 6-4 ####[facility]CL[facility] [id number] [facility] [place] [id number] [address] [place] Cholesterol non HDL [Mass/Vol] 146 mg/dL High <130 [facility] Comment on above: Order Comment: Speci men Type: BLOOD SPECIMENOrdering Facility: [facility] Address: [address] [place] [address] Result Comment: <130 mg/dL, Optimal 130-159 mg/dL, Near optimal/above optimal 160-189 mg/dL, Borderline high 190-219 mg/dL, High >219 mg/dL, Very high Secondary prevention optimal non HDL Cholesterol levels are recommended to be <100 mg/dL Performed By: #### 2 4323-8, 19388-6, 18530-2, 2276-4 ####[facility] [id number] [place] [address] [place] Cholesterol.total/Chol esterol in HDL [Mass ratio] 3.75 {ratio} Normal <5.10 [facility] Comment on above: Order Comment: Speci men Type: BLOOD SPECIMENOrdering Facility: [facility] Address: [address] [place] [address] Performed By: #### 2 4323-8, 83630-0, 10878-0, 2276-4 ####[facility] LABIA [id number] [place] [id number] [place] FASTING TIME 12 hrs Normal [facility] Comment on above: Order Comment: Speci men Type: BLOOD SPECIMENOrdering Facility: [facility] Address: [address] [place] [address] Performed By: #### 2 4323-8, 43080-8, 36579-6, 2276-4 ####[facility]IA [id number] [place] [id number] [place] Triglyceride [Mass/Vol] 65 mg/dL Normal <150 [facility] Comment on above: Order Comment: Speci men Type: BLOOD SPECIMENOrdering Facility: [facility] Address: [address] [place] [address] Result Comment: <150 mg/dL, Normal 150-199 mg/dL, Borderline high 200-499 mg/dL, High >499 mg/dL, Very high Performed By: #### 2 4323-8, 79332-4, 08461-2, 2276-4 ####[facility] [id number] [place] [address] [place] Liver ultrasound attenuation by transient elastographyon 07-14-2024 Fibroscan Report Date performed: July 14, 2024 Performed by: Gayle Fountain RN Patient fasted 3 hours:Yes Indication: Hepatic Steatosis Technical difficulties: None. Result: The reading was adequate. Please refer to get images report for individual readings Number of readings: 10 IQR %: 5 E (kpa): 4.8 CAP: 165 Impression The liver stiffness is 4.8 kPa which corresponds to 97% chance of stage F0-F2 fibrosis. The CAP analysis showed grade S0 of liver steatosis. Stage of liver fibrosis based on above kPa: A 97% chance of stage 0-2 fibrosis A 3% chance of stage 3-4 fibrosis (advanced fibrosis) A <1% chance of stage 4 fibrosis (cirrhosis). A kPa >20 indicates a high likelihood of stage 4 fibrosis/cirrhosis, consider further testing to confirm and refer to hepatology. Interpreted by: Idania Mcdowell APRN.[facility] Fibroscan Fibrosis Risk <7 kPA = F0-F2 97%, F3+F4 3%, F4 <1% <10 kPA = F0-F2 91%, F3+F4 9%, F4 1.3% 10-15 kPA = F0-F2 56%, F3+F4 43%, F4 14% >15 kPA = F0-F2 26%, F3+F4 74%, F4 46% Grade CAP value up to 237 dB/M corresponds to S0 (< 10 % Fat) CAP value between (238 - 258 dB/M) corresponds to S1 (>/= 11 % Fat) CAP value between (259 - 289 dB/M) corresponds to S2 (>/= 33 % Fat) CAP value > 290dB/M corresponds to S3 (>/= 67 % Fat) stage 0 ( S0:< 10 % steatosis) stage 1 (>/= S1: 11%-33% steatosis) stage 2 (>/= S2: 34%-66% steatosis) stage 3 (>/= S3: > 66% steatosis) Reference Ankit Hinojosa Carl Q, Pham T, Shaye J, Pham H, Alvarado T. Controlled attenuation parameter for assessment of hepatic steatosis grades: a diagnostic meta-analysis. Int J Clin Exp Med. 2015 Feb 15;8(10):36257-34. PMID: 26405086; PMCID: [id number]. David Mcdaniel, Kwesi AVERY, Ruma M, Yuli F, Milo J, Farhana O, Lionel F, Олег M, Lacho G, Chris A, Vignesh E, Mele L, Emanuel G, Santiago A, Nicole U, Carrillo S, Oleksandr P, Aman V, de Celeste V, Sarah M, Malvin LACKEY. Refining the Baveno elastography criteria for the definition of compensated advanced chronic liver disease. J Hepatol. 2020;74(5):1412-0093. doi: 10.1016/j.jhep.2020.11. 050. Epub 2019Apr 19. PMID: [id number]. José M, Tiffany B, April M, Errol M, Darion S, Roseanna Us, Wayne D, Maik Castañeda. AASLD practice guidance on the clinical assessment and management of nonalcoholic fatty liver disease. Hepatology. 2022;77(5):2955-3836. doi:10.1097/HEP.[id number] [facility] Radiology Study observation (narrative) [facility] PT panel Coag (PPP)on 2024 INR Coag (PPP) [Relative time] 1.0 {INR} Normal 0.9-1.3 [facility] Comment on above: Order Comment: Speci men Type: BLOOD SPECIMENOrdering Facility: [facility] Address: [facility] [place] [address] Result Comment: Rebecca min K Antagonist (VKA) Therapeutic Range: INR 2 to 3 (Target INR of 2.5) Note: For patients treated with VKA drugs, such as warfarin, the [employer] 2012 Guideline recommends a therapeutic INR range of 2 to 3 (target INR of 2.5). This recommendation includes high-risk patients with antiphospholipid syndrome with previous arterial or venous thromboembolism, current-generation mechanical or bioprosthetic aortic heart valve replacement. Note: Patients with mechanical aortic valve replacement and additional risk factors for thromboembolic events (atrial fibrillation, previous thromboembolism, LV dysfunction, hypercoagulable conditions) or an older generation mechanical AVR (i.e., ball in-Cage) or any mechanical MVR should have a INR therapeutic range of 2.5 to 3.5 (target INR of 3). Lesvia GH, et al. Chest 2012, 141:7S-47S Sonu RA, et al. [facility] 2017, 70: 252-289 Performed By: #### 3 4528-0 ####[facility] [id number] [place] [address] [place] PT Coag (PPP) [Time] 11.3 s Normal 9.7-13.0 [facility] Comment on above: Order Comment: Speci men Type: BLOOD SPECIMENOrdering Facility: [facility] Address: [address] [place] [address] Performed By: #### 3 4528-0 ####[facility] [id number] [place] [address] [place] PTH-Intact SerPl-[facility] Serviceson 03-0 Parathyrin.intact [Mass/Vol] 35 pg/mL Normal 15-65 [facility] Comment on above: Order Comment: Speci men Type: BLOOD SPECIMENOrdering Facility: [facility] Address: [address] [place] [address] Performed By: #### 2 132-9, 2284-8, 2731-8 ####[facility] [id number] [place] [address] [place] Prot Ur-mCncon 07-14-2024 Protein (U) [Mass/Vol] 8 mg/dL Normal 0-20 [facility] Comment on above: Order Comment: Speci men Type: URINE SPECIMENOrdering Facility: [facility] Address: [address] [place] [address] Performed By: #### U ACR, 2888-6, UTOX2 ####[facility] [id number] [address], [place] [address] [place] TOXICOLOGY SCREEN, ROUTINE U RINEon 07-14-2024 Amphetamines Confirm (U) [Mass/Vol] Negative Normal Negative [facility] Comment on above: Order Comment: Speci men Type: URINE SPECIMENOrdering Facility: [facility] Address: [address] [place] [address] Performed By: #### U ACR, 2888-6, UTOX2 ####[facility] [id number] [place] [address] [place] BARBITURATES, URINE Negative Normal Negative [facility] Comment on above: Order Comment: Speci men Type: URINE SPECIMENOrdering Facility: [facility] Address: [address] [place] [address] Performed By: #### U ACR, 2888-6, UTOX2 ####[facility] [id number] [place] [address] [place] BENZODIAZEPINES, UR Negative Normal Negative [facility] Comment on above: Order Comment: Speci men Type: URINE SPECIMENOrdering Facility: [facility] Address: [address] [place] [address] Performed By: #### U ACR, 2888-6, UTOX2 ####[facility] [id number] [place] [id number] [place] Cannabinoids Screen Ql (U) Negative Normal Negative [facility] Comment on above: Order Comment: Speci men Type: URINE SPECIMENOrdering Facility: [facility] Address: [address] [place] [address] Performed By: #### U ACR, 2888-6, UTOX2 ####[facility] [id number] [address] [place] [address] [place] Cocaine Ql (U) Negative Normal Negative [facility] Comment on above: Order Comment: Speci men Type: URINE SPECIMENOrdering Facility: [facility] Address: [address] [place] [address] Performed By: #### U ACR, 2888-6, UTOX2 ####[facility] [id number] [address] [address] [place] Ethanol (U) [Mass/Vol] <11 Normal <11 [facility] Comment on above: Order Comment: Speci men Type: URINE SPECIMENOrdering Facility: [facility] Address: [address] [place] [address] Performed By: #### U ACR, 2888-6, UTOX2 ####[facility] [id number] [place] [address] [place] Opiates Screen Ql (U) Negative Normal Negative [facility] Comment on above: Order Comment: Speci men Type: URINE SPECIMENOrdering Facility: [facility] Address: [address] [place] [address] Performed By: #### U ACR, 2888-6, UTOX2 ####[facility] [id number] [place] [id number] [place] oxyCODONE cutoff Screen (U) [Mass/Vol] Negative Normal Negative [facility] Comment on above: Order Comment: Speci men Type: URINE SPECIMENOrdering Facility: [facility] Address: [address] [place], [place] [address] Performed By: #### U ACR, 2888-6, UTOX2 ####[facility] [id number] [address] [address] [place] Phencyclidine Ql (U) Negative Normal Negative [facility] Comment on above: Order Comment: Speci men Type: URINE SPECIMENOrdering Facility: [facility] Address: [address] [place] [address] Performed By: #### U ACR, 2888-6, UTOX2 ####[facility] [id number] [place] [address] [place] TYPE AND SCREEN,30 DAYon ABO O Normal [facility] Comment on above: Order Comment: Speci men Type: BLOOD SPECIMEN [facility] Address: [address] [place] [address] Performed By: #### T SCR30 #### [facility] CLIA [id number] [address] [place] [address] [place] Rh Nom (Bld) Positive Normal [facility] Comment on above: Order Comment: Speci men Type: BLOOD SPECIMEN [facility] Address: [address] [place] [address] Performed By: #### T SCR30 #### [facility] CLIA [id number] [address] [place] [address] [place] VITAMIN B1 (THIAMINE), WHOLE BLOODon 07-14-2024 Thiamine (Bld) [Moles/Vol] 165.5 nmol/L Normal 84.3-213.3 [facility] Comment on above: Order Comment: Speci men Type: BLOOD SPECIMENOrdering Facility: [facility] Address: [address] [place] [address] Result Comment: This assay measures the concentration of thiamine diphosphate (TDP), the primary active form of vitamin B1. Approximately 90 percent of vitamin B1 present in whole blood is TDP. Thiamine and thiamine monophosphate, which comprise the remaining 10 percent, are not measured. This test was developed, and its performance characteristics determined by the [facility] Department of Pathology and Laboratory Medicine. It has not been cleared or approved by the FDA. The [facility] Department of Pathology and Laboratory Medicine is regulated under CLIA as qualified to perform high-complexity testing. This test is used for clinical purposes. It should not be regarded as investigational or for research. Performed By: #### B 1WB ####[facility] [id number] [place] [id number] [place] Vit A SerPl-ncon 5 Retinol [Mass/Vol] 0.46 mg/L Normal 0.30-1.20 [facility] Comment on above: Order Comment: Speci men Type: BLOOD SPECIMENOrdering Facility: [facility] Address: [address] [place] [address] Result Comment: Test performed at [facility] in [place], [place]. This test was developed and its performance characteristics determined by [facility]. It has not been cleared or approved by the [place] Food and Drug Administration. This test was performed in a CLIA certified laboratory and is intended for clinical purposes. Performed By: #### 2 923-1 ####[facility] [id number] [place] [address] [place] Vit B12 SerPl-ncon 025 Cobalamin (Vitamin B12) [Mass/Vol] 601 pg/mL Normal 232-1245 [facility] Comment on above: Order Comment: Speci men Type: BLOOD SPECIMENOrdering Facility: [facility] Address: [address] [place] [address] Performed By: #### 2 132-9, 2284-8, 2731-8 ####[facility] [id number] [address] [place] Luci 06-11-2024 [place] Tele[employer] ([place]) MELISSA NICHOLS ([id number]) 1970 F Date Time Provider Department 06/11/24 GAYLE LEAL During your visit today, we recorded the following information about you: Gayle Leal RN 06/11/2024 5:04 PM Signed Attempted to contact patient to schedule EGBR. No answer, LVM requesting return call to office. Allergies As of Date: 06/11/2024 (No Known Allergies) Date Reviewed: 05/11/2024 Reviewed by: Maranda Castro APRN.REPORT CLERK - Fully Assessed Prescriptions as of 06/15/2024 - omeprazole (PRILOSEC) 40 mg capsule TAKE 1 CAPSULE BY MOUTH TWO TIMES A DAY. OPEN CAPSULE SPRINKLE OVER APPLESAUCE AND TAKE 30 MINUTES BEFORE BREAKFAST AND 30 MINUTES BEFORE DINNER - ergocalciferol, vitamin D2, (DRISDOL) 50,000 unit capsule Take 1 capsule by mouth once each week. - levothyroxine (SYNTHROID) 100 mcg tablet Take 1 tablet by mouth once daily. - Multivitamin capsule Take 1 capsule by mouth once daily. Problem List As Of Date 06/11/2024 Noted Resolved UTI (lower urinary tract infection) [N39.0] 08/18/2013 08/18/2013 Complex endometrial hyperplasia [N85.01] 09/03/2013 Anemia [D64.9] 12/13/2014 DJD (degenerative joint disease) [M19.90] 12/13/2014 History of gastric bypass [Z98.84] 02/09/2017 Hypocalcemia [E83.51] 01/04/2016 Hypothyroidism [E03.9] 12/13/2014 Positive JESSICA (antinuclear antibody) [R76.8] 02/09/2017 Vitamin D deficiency [E55.9] 12/13/2014 Pain in right knee [M25.561] 11/19/2019 S/P ACL reconstruction [Z98.890] 11/19/2019 Impaired range of motion of right knee [M25.661]11/19/2019 12/09/2022 Decreased strength involving knee joint [R29.89*11/19/2019 Abnormality of gait [R26.9] 11/19/2019 12/09/2022 Family history of rectal cancer [Z80.0] 12/13/2022 Encounter Status:Closed by GAYLE LEAL on 06/11/24 Normal [facility] Office Visiton 06-11-2024 Follow-up visit [id number] Melissa Nichols 1970 F Date Provider Department Center 06/11/2024 [id number]-YFBRUODEMETRI ARNOLD [facility] Family History Problem Relation Age of Onset Alcohol abuse Father Cancer Father Comments: pancreatic ca, liver Diabetes Father Diabetes Paternal Grandmother Comments: HTN Kidney disease Paternal Grandmother Alcohol abuse Brother COPD Brother Diabetes Paternal Grandfather Stroke Mother Bipolar disorder Mother Other Mother Comments: manic depressive Mental illness Mother Suicide Attempts Mother Hypertension Maternal Grandmother Comments: Heart attack Heart disease Maternal Grandmother No Known Problems Sister High Blood Pressure Other Comments: relative from this condition Family Status - Relation Status Age at Father Paternal Grandmother Brother Alive Paternal Grandfather Mother Maternal Grandmother Sister Alive Other Maternal Grandfather Level of Service:41043 [place] PERIODIC PREVENTIVE MED EST PATIENT 40-64YRS Reason for Visit and Comments: Annual Exam [83] - CPE. Recently had labs done through the [facility], you can see these in chart. Normal [facility] Progress Noteon 06-11-2024 Progress Note [facility] [address] [facility] [id number] Visit type: Established Patient Reason for Visit: Annual Exam (CPE. Recently had labs done through the [facility], you can see these in chart. ) Assessment and Plan 1. Well adult exam Doing well. -Encouraged healthy lifestyle, exercise and diet. To obtain and maintain health weight. -continue wt loss - Comprehensive metabolic panel; Future - Hemoglobin A1c; Future - TSH; Future - Comprehensive metabolic panel - Hemoglobin A1c - TSH 2. Acquired hypothyroidism Recheck status on levothyrxoine 3. Elevated ferritin (Primary) May be from wt loss -recheck labs -check mutation lab - Ferritin; Future - Hemochromatosis mutation; Future - Iron and TIBC; Future - Ferritin - Hemochromatosis mutation - Iron and TIBC 4. 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 She has no complaints today. Comes in yearly. She sees [facility] as well. Obesity. She is s/p gastric bypass in 2003. Seeing GI [facility]. Had outlet narrowed and helped. Less carbs more protein. Changed diet a lot and very pleased with her wt loss and how feeling Patient Weight 06/11/24 187 lb (84.8 kg) 05/21/23 220 lb (99.8 kg) 07/04/22 234 lb (106 kg) Hypothyroidism Current symptoms: none . Patient denies change in energy level, diarrhea, heat / cold intolerance, nervousness, and palpitations. Symptoms have been well-controlled. She has not had TSH checked in last year with her GI follow ups. 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 Raynauds still an issue Vit D Def. Replaced Ferritin is up. Normal in 2022. Since she has lost wt has been elevated 300's last two checks. GI following it. Fibroscan was 5.4 kPa. She has no family hx iron issues. Not on supplement now. Health Maintenance: Cervical Cancer Screening: N/A - Up to Date and Follows with [facility] - LMP: No LMP recorded. Patient has had a hysterectomy. Breast Cancer Screening: with [facility] Colon Cancer Screening: N/A Up-to-Date The 10-year ASCVD risk score (Amado TITUS, et al., 2019) is: 1.1% Values used to calculate the score: Age: 53 years Sex: Female Is Non- : No Diabetic: No Tobacco smoker: No Systolic Blood Pressure: 113 mmHg Is BP treated: No HDL Cholesterol: 59 mg/dL Total Cholesterol: 198 mg/dL Review of Systems Constitutional: Negative for appetite change, fatigue and unexpected weight change. Eyes: Negative for pain and visual disturbance. Respiratory: Negative for apnea, cough, chest tightness and shortness of breath. Cardiovascular: Negative for chest pain, palpitations and leg swelling. Gastrointestinal: Negative for abdominal distention, abdominal pain, anal bleeding, blood in stool, constipation, diarrhea, nausea, rectal pain and vomiting. Genitourinary: Negative for dysuria, frequency and hematuria. Musculoskeletal: Negative for arthralgias, back pain and gait problem. Skin: Negative for rash. Neurological: Negative for dizziness and headaches. Hematological: Negative for adenopathy. Does not bruise/bleed easily. Psychiatric/Behavioral: Negative for dysphoric mood and sleep disturbance. The patient is not nervous/anxious. No Known Allergies Outpatient Medications Prior to Visit Medication Sig Dispense Refill ergocalciferol (Vitamin D2) 1.25 MG (75151 UT) capsule TAKE ONE CAPSULE BY MOUTH ONCE WEEKLY 188 capsule 0 levothyroxine (Synthroid, Levoxyl) 100 MCG tablet Take 1 tablet (100 mcg) by mouth daily. 90 tablet 0 Multiple Vitamin (multivitamin) capsule Take 1 capsule by mouth daily. omeprazole (PriLOSEC) [address] capsule Take 40 mg by mouth twice a day. (Patient taking differently: Take 40 mg by mouth every morning (before breakfast).) ferrous sulfate 325 (65 Fe) MG tablet Take 65 mg by mouth in the morning and 65 mg in the evening. Hydroxychloroquine Sulfate 300 MG tablet TAKE 1 TABLET BY MOUTH WITH FOOD or milk ONCE DAILY No facility-administered medications prior to visit. Past Medical History: Diagnosis Date Abnormal Pap smear of cervix 2010 Autoimmune disorder (HCC) 11/09/2018 Cancer (CMS/HCC) (HCC) 2016 Cardiac dysrhythmia Chronic anemia Connective tissue disease (HCC) Elevated BP without hypertension GERD (gastroesophageal reflux disease) Grief grief adjustment Hypoglycemia Hypothyroidism Lung nodule Obesity 12 29 1999 Osteoarthritis 1998, 2001 Varicose veins Vitamin D deficiency Social History Socioeconomic History Marital status: Tobacco Use Smoking status: Never Passive exposure: Never Smokeless tobacco: Never Vaping Use Vaping status: Never Used Substance and Sexual Activity Alcohol use: Never Drug use: Never Sexual activity: (more content not included)... [facility] 36on 04-29-2024 36 Medication name: levothyroxine (Synthroid, Levoxyl Medication dosage: 100mcg Monthly quantity needed: 30 How many day supply requestin days Medication route: oral (PO) Medication administration time(s): daily If taking medication PRN, reason for taking medication: N/A If this is a controlled substance do you receive this or any other controlled medication from any other doctor or facility: N/A Ordering provider: Dr Vazquez Date of last office visit: 05/21/23 Date of next office visit: 06/11/24 Date of last refill: (see medication tab): 09/25/23 Updated/Validated preferred pharmacy: Yes Patient instructed to contact the pharmacy prior to picking up the medication: Yes [facility] 25(OH)D3 [facility] 2023 25-hydroxyvitamin D3 [Mass/Vol] 53.6 ng/mL Normal >=30.0 [facility] Comment on above: Order Comment: Speci men Type: BLOOD SPECIMEN Ordering Facility: [facility] Address: [address] [place] [address] Result Comment: Clas sification of 25 [place] Vitamin D status: Deficiency: <= 20.0 ng/ml. Insufficiency: 21.0-29.0 ng/ml. Sufficiency: >= 30.0 ng/ml. Performed By: #### 1 989-3 #### [facility] CLIA [id number] [address] [place] [id number] [place] C3 SerPl-mCncon 04-23-2024 Complement C3 [Mass/Vol] 134 mg/dL Normal 86-166 [facility] Comment on above: Order Comment: Yonathan hubbard Type: BLOOD SPECIMEN Ordering Facility: [facility] Address: [address] [place] [address] Performed By: #### 4 485-9, 4498-2 #### [facility] CLIA [id number] [address] [place] [address] [place] C4 SerPl-mCncon 04-23-2024 Complement C4 [Mass/Vol] 23 mg/dL Normal 13-46 [facility] Comment on above: Order Comment: Yonathan hubbard Type: BLOOD SPECIMEN Ordering Facility: [facility] Address: [address] [place] [address] Performed By: #### 4 485-9, 4498-2 #### [facility] CLIA [id number] [address] [place], [place] [address] [place] CBC W Auto Differential pane l (Bld)on 04-23-2024 Basophils (Bld) [#/Vol] 0.04 10*3/uL Normal <0.11 [facility] Comment on above: Order Comment: Yonathan men Type: BLOOD SPECIMEN Ordering Facility: [facility] Address: [address] [place] [address] Performed By: #### 4 485-9, 4498-2 #### [facility] CLIA [id number] [address] [address] [place] Basophils/100 WBC (Bld) 1.3 % Normal [facility] Comment on above: Order Comment: Speci men Type: BLOOD SPECIMEN Ordering Facility: [facility] Address: [address] [place] [address] Performed By: #### 4 485-9, 4498-2 #### [facility] CLIA [id number] [address] [address] [place] Eosinophils (Bld) [#/Vol] 0.10 10*3/uL Normal <0.46 [facility] Comment on above: Order Comment: Speci men Type: BLOOD SPECIMEN Ordering Facility: [facility] Address: [address] [place] [address] Performed By: #### 4 485-9, 4498-2 #### [facility] CLIA [id number] [address] [place], [place] [address] [place] Eosinophils/100 WBC (Bld) 3.1 % Normal [facility] Comment on above: Order Comment: Speci men Type: BLOOD SPECIMEN Ordering Facility: [facility] Address: [address] [place] [address] Performed By: #### 4 485-9, 4498-2 #### [facility] CLIA [id number] [address] [place], [place] [address] [place] Erythrocyte distribution width (RBC) [Ratio] 12.6 % Normal 11.5-15.0 [facility] Comment on above: Order Comment: Speci men Type: BLOOD SPECIMEN Ordering Facility: [facility] Address: [address] [place], [place] [address] Performed By: #### 4 485-9, 4498-2 #### [facility] CLIA [id number] [address] [place], [place] [address] [place] Hematocrit (Bld) [Volume fraction] 40.0 % Normal 36.0-46.0 [facility] Comment on above: Order Comment: Speci men Type: BLOOD SPECIMEN Ordering Facility: [facility] Address: [address] [place], [place] [address] Performed By: #### 4 485-9, 4498-2 #### [facility] CLIA [id number] [address] [place], [place] [address] [place] Hemoglobin (Bld) [Mass/Vol] 12.7 g/dL Normal 11.5-15.5 [facility] Comment on above: Order Comment: Speci men Type: BLOOD SPECIMEN Ordering Facility: [facility] Address: [address] [place] [address] Performed By: #### 4 485-9, 4498-2 #### [facility] CLIA [id number] [address] [place], [place] [address] [place] Immature granulocytes (Bld) [#/Vol] 10*3/uL Normal <0.10 [facility] Comment on above: Order Comment: Speci men Type: BLOOD SPECIMEN Ordering Facility: [facility] Address: [address] [place], [place] [address] Performed By: #### 4 485-9, 4498-2 #### [facility] CLIA [id number] [address] [place], [place] [address] [place] Immature granulocytes/100 WBC (Bld) 0.0 % Normal [facility] Comment on above: Order Comment: Speci men Type: BLOOD SPECIMEN Ordering Facility: [facility] Address: [address] [place], [place] [address] Performed By: #### 4 485-9, 4498-2 #### [facility] CLIA [id number] [address] [place], [place] [address] [place] Lymphocytes (Bld) [#/Vol] 0.94 10*3/uL Low 1.00-4.00 [facility] Comment on above: Order Comment: Speci men Type: BLOOD SPECIMEN Ordering Facility: [facility] Address: [address] [place] [address] Performed By: #### 4 485-9, 4498-2 #### [facility] CLIA [id number] [address] [place] [address] OF [place] Lymphocytes/100 WBC (Bld) 29.6 % Normal [facility] Comment on above: Order Comment: Speci men Type: BLOOD SPECIMEN Ordering Facility: [facility] Address: [address] [place] [address] Performed By: #### 4 485-9, 4498-2 #### [facility] CLIA [id number] [address] [place] [address] [place] MCH (RBC) [Entitic mass] 30.9 pg Normal 26.0-34.0 [facility] Comment on above: Order Comment: Speci men Type: BLOOD SPECIMEN Ordering Facility: [facility] Address: [address] [place] [address] Performed By: #### 4 485-9, 4498-2 #### [facility] CLIA [id number] [address] [place] [address] [place] MCHC (RBC) [Mass/Vol] 31.8 g/dL Normal 30.5-36.0 [facility] Comment on above: Order Comment: Speci men Type: BLOOD SPECIMEN Ordering Facility: [facility] Address: [address] [place] [address] Performed By: #### 4 485-9, 4498-2 #### [facility] CLIA [id number] [address] [place] [address] [place] MCV (RBC) [Entitic vol] 97.3 fL Normal 80.0-100.0 [facility] Comment on above: Order Comment: Speci men Type: BLOOD SPECIMEN Ordering Facility: [facility] Address: [address] [place] [address] Performed By: #### 4 485-9, 4498-2 #### [facility] CLIA [id number] [address] [place], [place] [address] [place] Monocytes (Bld) [#/Vol] 0.47 10*3/uL Normal <0.87 [facility] Comment on above: Order Comment: Speci men Type: BLOOD SPECIMEN Ordering Facility: [facility] Address: [address] [place] [address] Performed By: #### 4 485-9, 4498-2 #### [facility] CLIA [id number] [address] [place] [address] [place] Monocytes/100 WBC (Bld) 14.8 % Normal [facility] Comment on above: Order Comment: Speci men Type: BLOOD SPECIMEN Ordering Facility: [facility] Address: [address] [place] [address] Performed By: #### 4 485-9, 4498-2 #### [facility] CLIA [id number] [address] [place], [place] [address] [place] Neutrophils (Bld) [#/Vol] 1.63 10*3/uL Normal 1.45-7.50 [facility] Comment on above: Order Comment: Speci men Type: BLOOD SPECIMEN Ordering Facility: [facility] Address: [address] [place] [address] Performed By: #### 4 485-9, 4498-2 #### [facility] CLIA [id number] [address] [place], [place] [id number] [place] Neutrophils/100 WBC (Bld) 51.2 % Normal [facility] Comment on above: Order Comment: Speci men Type: BLOOD SPECIMEN Ordering Facility: [facility] Address: [address] [place] [address] Performed By: #### 4 485-9, 4498-2 #### [facility] CLIA [id number] [address] [place], [place] [address] [place] Nucleated RBC (Bld) [#/Vol] Normal [facility] Comment on above: Order Comment: Speci men Type: BLOOD SPECIMEN Ordering Facility: [facility] Address: [address] [place] [address] Performed By: #### 4 485-9, 4498-2 #### [facility] CLIA [id number] [address] [place] [address] [place] Nucleated RBC/100 WBC (Bld) [Ratio] Normal [facility] Comment on above: Order Comment: Speci men Type: BLOOD SPECIMEN Ordering Facility: [facility] Address: [address] [place] [address] Performed By: #### 4 485-9, 4498-2 #### [facility] CLIA [id number] [address] [place] [address] [place] Platelet mean volume (Bld) [Entitic vol] 10.0 fL Normal 9.0-12.7 [facility] Comment on above: Order Comment: Speci men Type: BLOOD SPECIMEN Ordering Facility: [facility] Address: [address] [place] [address] Performed By: #### 4 485-9, 4498-2 #### [facility] CLIA [id number] [address] [place], [place] [address] [place] Platelets (Bld) [#/Vol] 260 10*3/uL Normal 150-400 [facility] Comment on above: Order Comment: Speci men Type: BLOOD SPECIMEN Ordering Facility: [facility] Address: [address] [place] [address] Performed By: #### 4 485-9, 4498-2 #### [facility] CLIA [id number] [address] [place] [address] [place] Platelets Estimate (Bld) [#/Vol] Adequate Normal [facility] Comment on above: Order Comment: Speci men Type: BLOOD SPECIMEN Ordering Facility: [facility] Address: [address] [place] [address] Performed By: #### 4 485-9, 4498-2 #### [facility] CLIA [id number] [address] [place] [address] [place] RBC (Bld) [#/Vol] 4.11 10*6/uL Normal 3.90-5.20 [facility] Comment on above: Order Comment: Diannei stevie Type: BLOOD SPECIMEN Ordering Facility: [facility] Address: [address] [place] [address] Performed By: #### 4 485-9, 4498-2 #### [facility] CLIA [id number] [address] [place] [address] [place] WBC (Bld) [#/Vol] 3.18 10*3/uL Low 3.70-11.00 [facility] Comment on above: Order Comment: Diannei stevie Type: BLOOD SPECIMEN Ordering Facility: [facility] Address: [address] [place] [address] Performed By: #### 4 485-9, 4498-2 #### [facility] CLIA [id number] [address] [place] [address] [place] Comprehensive metabolic 2000 panelon 04-23-2024 Albumin [Mass/Vol] 4.3 g/dL Normal 3.9-4.9 [facility] Comment on above: Order Comment: Speci men Type: BLOOD SPECIMEN Ordering Facility: [facility] Address: [address] [place] [address] Performed By: #### 2 4323-8, 31025-9 #### [facility] CLIA [id number] [address] [place] [address] [facility] OF [place] ALP [Catalytic activity/Vol] 99 U/L Normal 34-123 [facility] Comment on above: Order Comment: Speci men Type: BLOOD SPECIMEN Ordering Facility: [facility] Address: [address] [place] [address] Performed By: #### 2 4323-8, 70039-5 #### [facility] CLIA [id number] [address] [place] [address] [place] ALT With P-5'-P [Catalytic activity/Vol] 29 U/L Normal 7-38 [facility] Comment on above: Order Comment: Speci men Type: BLOOD SPECIMEN Ordering Facility: [facility] Address: [address] [place] [address] Performed By: #### 2 4323-8, 46051-8 #### [facility] CLIA [id number] [address] [place] [address] [place] [facility] [place] Anion gap [Moles/Vol] 8 mmol/L Normal 8-15 [facility] Comment on above: Order Comment: Speci men Type: BLOOD SPECIMEN Ordering Facility: [facility] Address: [address] [place] [address] Performed By: #### 2 4323-8, 40511-0 #### [facility] CLIA [id number] [address] [place] [address] [place] AST With P-5'-P [Catalytic activity/Vol] 25 U/L Normal 13-35 [facility] Comment on above: Order Comment: Speci men Type: BLOOD SPECIMEN Ordering Facility: [facility] Address: [address] [place] [address] Performed By: #### 2 4323-8, 47484-1 #### [facility] CLIA [id number] [address] [place] [address] [place] Bilirubin [Mass/Vol] 0.4 mg/dL Normal 0.2-1.3 [facility] Comment on above: Order Comment: Speci men Type: BLOOD SPECIMEN Ordering Facility: [facility] Address: [address] [place] [address] Performed By: #### 2 4323-8, 41100-9 #### [facility] CLIA [id number] [address] [place] [address] [place] Calcium [Mass/Vol] 9.5 mg/dL Normal 8.5-10.2 [facility] Comment on above: Order Comment: Speci men Type: BLOOD SPECIMEN Ordering Facility: [facility] Address: [address] [place] [address] Performed By: #### 2 4323-8, 33079-0 #### [facility] CLIA [id number] [address] [place] [address] [place] Chloride [Moles/Vol] 104 mmol/L Normal 98-107 [facility] Comment on above: Order Comment: Speci men Type: BLOOD SPECIMEN Ordering Facility: [facility] Address: [address] [place] [address] Performed By: #### 2 4323-8, 14893-4 #### [facility] CLIA [id number] [address] [place] [address] [place] CO2 [Moles/Vol] 29 mmol/L Normal 22-30 [facility] Comment on above: Order Comment: Speci men Type: BLOOD SPECIMEN Ordering Facility: [facility] Address: [address] [place], [place] [address] Performed By: #### 2 4323-8, 29015-4 #### [facility] CLIA [id number] [address] [place] [address] [place] Creatinine [Mass/Vol] 0.75 mg/dL Normal 0.58-0.96 [facility] Comment on above: Order Comment: Speci men Type: BLOOD SPECIMEN Ordering Facility: [facility] Address: [address] [place] [address] Performed By: #### 2 4323-8, 06050-4 #### [facility] CLIA [id number] [address] [place] [address] [place] Creatinine and Glomerular filtration rate.predicted panel (S/P/Bld) 96 mL/min/1.73m??? Normal >=60 [facility] Comment on above: Order Comment: Yonathan hubbard Type: BLOOD SPECIMEN Ordering Facility: [facility] Address: [address] [place] [address] Result Comment: Lana mated Glomerular Filtration Rate (eGFR) is calculated using the 2020 CKD-EPI creatinine equation. This equation utilizes serum creatinine, sex, and age as parameters. The creatinine assay has traceable calibration to isotope dilution-mass spectrometry. Refer to KDIGO guidelines for clinical interpretation. In patients with unstable renal function, e.g. those with acute kidney injury, the eGFR may not accurately reflect actual GFR. Performed By: #### 2 4323-8, 90099-2 #### [facility] CLIA [id number] [address] [id number] [place] Glucose [Mass/Vol] 93 mg/dL Normal 74-99 [facility] Comment on above: Order Comment: Yonathan hubbard Type: BLOOD SPECIMEN Ordering Facility: [facility] Address: [address] [place] [address] Result Comment: The [place] Diabetes Association (ADA) provides guidance for cutoff values for fasting glucose and random glucose. The ADA defines fasting as no caloric intake for at least 8 hours. Fasting plasma glucose results between 100 to 125 mg/dL indicate increased risk for diabetes (prediabetes). Fasting plasma glucose results greater than or equal to 126 mg/dL meet the criteria for diagnosis of diabetes. In the absence of unequivocal hyperglycemia, results should be confirmed by repeat testing. In a patient with classic symptoms of hyperglycemia or hyperglycemic crisis, random plasma glucose results greater than or equal to 200 mg/dL meet the criteria for diagnosis of diabetes. Reference: Standards of Medical Care in Diabetes 2016, Indian Diabetes Association. Diabetes Care. 2016.39(Suppl 1). Performed By: #### 2 4323-8, 05794-8 #### [facility] CLIA [id number] [address] [place] [address] [place] Potassium [Moles/Vol] 4.2 mmol/L Normal 3.7-5.1 [facility] Comment on above: Order Comment: Speci men Type: BLOOD SPECIMEN Ordering Facility: [facility] Address: [address] [place] [address] Performed By: #### 2 4323-8, 47456-9 #### [facility] CLIA [id number] [address] [place] [address] [place] Protein [Mass/Vol] 7.2 g/dL Normal 6.3-8.0 [facility] Comment on above: Order Comment: Speci men Type: BLOOD SPECIMEN Ordering Facility: [facility] Address: [address] [place] [address] Performed By: #### 2 4323-8, 86333-5 #### [facility] CLIA [id number] [address] [place] [address] [place] Sodium [Moles/Vol] 141 mmol/L Normal 136-144 [facility] Comment on above: Order Comment: Speci men Type: BLOOD SPECIMEN Ordering Facility: [facility] Address: [address] [place] [address] Performed By: #### 2 4323-8, 77593-7 #### [facility] CLIA [id number] [address] [place] [address] [place] Urea nitrogen [Mass/Vol] 15 mg/dL Normal 7-21 [facility] Comment on above: Order Comment: Speci men Type: BLOOD SPECIMEN Ordering Facility: [facility] Address: [address] [place] [address] Performed By: #### 2 4323-8, 96700-1 #### [facility] CLIA [id number] [address] [place] [address] [place] DNA double strand Ab IA Qn ( S)on 04-23-2024 DNA ANTIBODY 46 IU/mL Normal <=200 [facility] Comment on above: Order Comment: Yonathan hubbard Type: BLOOD SPECIMEN Ordering Facility: [facility] Address: [address] [place] [address] Result Comment: Nega tive: <200 IU/mL Equivocal: 201-300 IU/mL Moderate Positive: 301-800 IU/mL Strong Positive: >801 IU/mL Performed By: #### 3 2677-7 #### [facility] CLIA [id number] [address] [place] [address] [facility] DNA ANTIBODY QUALITATIVE INTERPRETATION Negative Normal Negative [facility] Comment on above: Order Comment: Yonathan hubbard Type: BLOOD SPECIMEN Ordering Facility: [facility] Address: [address] [place] [address] Performed By: #### 3 2677-7 #### [facility] CLIA [id number] [address] [place] [address] [place] Ferritin SerPl-mCncon 2023 Ferritin [Mass/Vol] 311.0 ng/mL High 14.7-205.1 [facility] Comment on above: Order Comment: Yonathan hubbard Type: BLOOD SPECIMEN Ordering Facility: [facility] Address: [address] [place] [address] Performed By: #### 4 485-9, 4498-2 #### [facility] CLIA [id number] [address] [place] [address] [place] HbA1c (Bld)on 04-23-2024 Average glucose Estimated from glycated hemoglobin (Bld) [Mass/Vol] 100 mg/dL Normal [facility] Comment on above: Order Comment: Yonathan hubbard Type: BLOOD SPECIMEN Ordering Facility: [facility] Address: [address] [place] [address] Result Comment: eAG: (Estimated average glucose) is a calculated value from HgbA1c and is medical detail representative of the average blood glucose level in the last 2-3 month period. Performed By: #### 4 485-9, 4498-2 #### [facility] CLIA [id number] [address] [place] [address] [place] HbA1c (Bld) [Mass fraction] 5.1 % Normal 4.3-5.6 [facility] Comment on above: Order Comment: Yonathan hubbard Type: BLOOD SPECIMEN Ordering Facility: [facility] Address: [address] [place] [address] Result Comment: Am [place] Diabetes Association guidelines indicate that patients with HgbA1c in the range 5.7-6.4% are at increased risk for development of diabetes, and intervention by lifestyle modification may be beneficial. HgbA1c greater or equal to 6.5% is considered diagnostic of diabetes. Performed By: #### 4 485-9, 4498-2 #### [facility] CLIA [id number] [address] [place] [address] [place] Insulin SerPl-aCncon 024 Insulin Qn 4.0 u[IU]/mL Normal 3.0-25.0 [facility] Comment on above: Order Comment: Yonathan hubbard Type: BLOOD SPECIMEN Ordering Facility: [facility] Address: [address] [place] [address] Performed By: #### 2 0448-7 #### [facility] CLIA [id number] [address] [place] [address] [place] Lipid 1996 panelon 4 Cholesterol [Mass/Vol] 196 mg/dL Normal <200 [facility] Comment on above: Order Comment: Yonathan hubbard Type: BLOOD SPECIMEN Ordering Facility: [facility] Address: [address] [place] [address] Result Comment: <200 mg/dL, Desirable 200-239 mg/dL, Borderline high >239 mg/dL, High Performed By: #### 2 4323-8, 16055-9 #### [facility] CLIA [id number] [address] [place] [address] [facility] Cholesterol in HDL [Mass/Vol] 55 mg/dL Normal >39 [facility] Comment on above: Order Comment: Yonathan hubbard Type: BLOOD SPECIMEN Ordering Facility: [facility] Address: [address] [place] [address] Result Comment: 40-5 9 mg/dL, Acceptable >59 mg/dL, High: Negative risk factor for coronary heart disease <40 mg/dL, Low: Positive risk factor for coronary heart disease Performed By: #### 2 4323-8, 84907-2 #### [facility] CLIA [id number] [address] [place] [address] [facility] Cholesterol in LDL [Mass/Vol] 127 mg/dL High <100 [facility] Comment on above: Order Comment: Yonathan hubbard Type: BLOOD SPECIMEN Ordering Facility: [facility] Address: [address] [place] [address] Result Comment: <100 mg/dL, Optimal 100-129 mg/dL, Near optimal/above optimal 130-159 mg/dL, Borderline high 160-189 mg/dL, High >189 mg/dL, Very high Secondary prevention optimal LDL Cholesterol levels are recommended to be < 70 mg/dL Performed By: #### 2 4323-8, 20743-1 #### [facility] CLIA [id number] [address] [id number] [facility] Cholesterol in LDL/Cholesterol in HDL [Mass ratio] 2.31 {ratio} Normal <2.54 [facility] Comment on above: Order Comment: Yonathan stevie Type: BLOOD SPECIMEN Ordering Facility: [facility] Address: [address] [place] [address] Result Comment: Refe rence: 1. National Cholesterol Education Program ATP III Guideline At-A-Glance Quick Desk Reference: National Heart, Lung, and Blood Collins. National Institutes of Health. 2001: NIH Publication No. 01-3305. 2. An International Atherosclerosis Society position paper: global recommendations for the management of dyslipidemia: executive summary, Atherosclerosis. 2014: 232(2):410-413. Performed By: #### 2 4323-8, 47327-3 #### [facility] CLIA [id number] [address] [place] [address] [facility] [place] Cholesterol in VLDL [Mass/Vol] 14 mg/dL Normal <30 [facility] Comment on above: Order Comment: Speci men Type: BLOOD SPECIMEN Ordering Facility: [facility] Address: [address] [place] [address] Performed By: #### 2 4323-8, 27898-1 #### [facility] CLIA [id number] [address] [place] [address] [facility] [place] Cholesterol non HDL [Mass/Vol] 141 mg/dL High <130 [facility] Comment on above: Order Comment: Speci men Type: BLOOD SPECIMEN Ordering Facility: [facility] Address: [address] [place] [address] Result Comment: <130 mg/dL, Optimal 130-159 mg/dL, Near optimal/above optimal 160-189 mg/dL, Borderline high 190-219 mg/dL, High >219 mg/dL, Very high Secondary prevention optimal non HDL Cholesterol levels are recommended to be <100 mg/dL Performed By: #### 2 4323-8, 60012-4 #### [facility] CLIA [id number] [address] Cholesterol.total/Chol esterol in HDL [Mass ratio] 3.56 {ratio} Normal <5.10 [facility] Comment on above: Order Comment: Speci men Type: BLOOD SPECIMEN Ordering Facility: [facility] Address: [address] [place] [address] Performed By: #### 2 4323-8, 96288-8 #### [facility] CLIA [id number] [address] [place] [address] [facility] FASTING TIME 12 hrs Normal [facility] Comment on above: Order Comment: Speci men Type: BLOOD SPECIMEN Ordering Facility: [facility] Address: [address] [place] [address] Performed By: #### 2 4323-8, 03279-2 #### [facility] CLIA [id number] [address] [place] [address] [place] Triglyceride [Mass/Vol] 72 mg/dL Normal <150 [facility] Comment on above: Order Comment: Speci men Type: BLOOD SPECIMEN Ordering Facility: [facility] Address: [address] [place] [address] Result Comment: <150 mg/dL, Normal 150-199 mg/dL, Borderline high 200-499 mg/dL, High >499 mg/dL, Very high Performed By: #### 2 4323-8, 93323-4 #### [facility] CLIA [id number] [address] [place] [address] [place] PTH-Intact SerPl-ncon 04-11 Parathyrin.intact [Mass/Vol] 36 pg/mL Normal 15-65 [facility] Comment on above: Order Comment: Speci men Type: BLOOD SPECIMEN Ordering Facility: [facility] Address: [address] [place] [address] Result Comment: Test methodology for this assay has moved from Siemens Centaur XP to Darrell milagro 8000 effective February 12, 2022. Please note there may be a change in the reporting units and/or reference range. Performed By: #### 4 485-9, 4498-2 #### [facility] CLIA [id number] [address] [place] [address] [place] Urinalysis complete panel (U )on 04-23-2024 Bacteria LM.HPF (Urine sed) [#/Area] Few Abnormal None Seen [facility] Comment on above: Order Comment: Speci men Type: URINE SPECIMEN Ordering Facility: [facility] Address: [address] [place] [address] Performed By: #### 2 4356-8 #### [facility] CLIA [id number] [address] [place] [address] [place] Bilirubin Ql (U) Negative Normal Negative [facility] Comment on above: Order Comment: Speci men Type: URINE SPECIMEN Ordering Facility: [facility] Address: [address] [place] [address] Performed By: #### 2 4356-8 #### [facility] CLIA [id number] [address] [place] [address] [place] Clarity (Unsp spec) Clear Normal Clear [facility] Comment on above: Order Comment: Speci men Type: URINE SPECIMEN Ordering Facility: [facility] Address: [address] [place] [address] Performed By: #### 2 4356-8 #### [facility] CLIA [id number] [address] [id number] [facility] Color (U) Yellow Normal Yellow [facility] Comment on above: Order Comment: Speci men Type: URINE SPECIMEN Ordering Facility: [facility] Address: [address] [place] [address] Performed By: #### 2 4356-8 #### [facility] CLIA [id number] [address] [id number] [facility] [place] Epithelial cells LM.HPF (Urine sed) [#/Area] Few Normal [facility] Comment on above: Order Comment: Speci men Type: URINE SPECIMEN Ordering Facility: [facility] Address: [address] [place] [address] Performed By: #### 2 4356-8 #### [facility] CLIA [id number] [address] [place] [address] [place] Glucose Test strip (U) [Mass/Vol] Negative Normal Negative [facility] Comment on above: Order Comment: Speci men Type: URINE SPECIMEN Ordering Facility: [facility] Address: [address] [place] [address] Performed By: #### 2 4356-8 #### [facility] CLIA [id number] [address] [place] [address] [place] Hemoglobin Ql (U) Negative Normal Negative [facility] Comment on above: Order Comment: Speci men Type: URINE SPECIMEN Ordering Facility: [facility] Address: [address] [place] [address] Performed By: #### 2 4356-8 #### [facility] CLIA [id number] [address] [place] [address] [facility] [place] Ketones Ql (U) Trace Abnormal Negative [facility] Comment on above: Order Comment: Speci men Type: URINE SPECIMEN Ordering Facility: [facility] Address: [address] [place] [address] Performed By: #### 2 4356-8 #### [facility] CLIA [id number] [address] [id number] [facility] [place] Leukocyte esterase Test strip Ql (U) 2+ Abnormal Negative [facility] Comment on above: Order Comment: Speci men Type: URINE SPECIMEN Ordering Facility: [facility] Address: [address] [place] [address] Performed By: #### 2 4356-8 #### [facility] CLIA [id number] [address] [place] Nitrite Ql (U) Negative Normal Negative [facility] Comment on above: Order Comment: Speci men Type: URINE SPECIMEN Ordering Facility: [facility] Address: [address] [place] [address] Performed By: #### 2 4356-8 #### [facility] CLIA [id number] [address] [place] [address] [place] pH (U) 6.5 [pH] Normal 5.0-8.0 [facility] Comment on above: Order Comment: Speci men Type: URINE SPECIMEN Ordering Facility: [facility] Address: [address] [place] [address] Performed By: #### 2 4356-8 #### [facility] CLIA [id number] [address] [id number] [facility] Protein (U) [Mass/Vol] Negative Normal Negative [facility] Comment on above: Order Comment: Speci men Type: URINE SPECIMEN Ordering Facility: [facility] Address: [address] [place] [address] Performed By: #### 2 4356-8 #### [facility] CLIA [id number] [address] [place] [address] [place] RBC LM.HPF (Urine sed) [#/Area] 6-10 /HPF Abnormal 0-3 /HPF [facility] Comment on above: Order Comment: Speci men Type: URINE SPECIMEN Ordering Facility: [facility] Address: [address] [place] [address] Performed By: #### 2 4356-8 #### [facility] CLIA [id number] [address] [place] Specific gravity (U) [Rel density] 1.015 Normal 1.005-1.030 [facility] Comment on above: Order Comment: Speci men Type: URINE SPECIMEN Ordering Facility: [facility] Address: [address] [place] [address] Performed By: #### 2 4356-8 #### [facility] CLIA [id number] [address] [facility] Urobilinogen Ql (U) 0.2 EU/dL Normal 0.2-1.0 EU/dL [facility] Comment on above: Order Comment: Speci men Type: URINE SPECIMEN Ordering Facility: [facility] Address: [address] [place] [address] Performed By: #### 2 4356-8 #### [facility] CLIA [id number] [address] [place] WBC LM.HPF (Urine sed) [#/Area] 0-5 /HPF Normal 0-5 /HPF [facility] Comment on above: Order Comment: Speci men Type: URINE SPECIMEN Ordering Facility: [facility] Address: [address] [place] [address] Performed By: #### 2 4356-8 #### [facility] CLIA [id number] [address] [place] [address] [place] Vit A SerPl-mCncon 4 Retinol [Mass/Vol] 0.45 mg/L Normal 0.30-1.20 [facility] Comment on above: Order Comment: Speci men Type: BLOOD SPECIMEN Ordering Facility: [facility] Address: [address] [place] [address] Result Comment: Test performed at [facility] in [place], [place] This test was developed and its performance characteristics determined by [employer]. It has not been cleared or approved by the US Food and Drug Administration. This test was performed in a CLIA certified laboratory and is intended for clinical purposes. Performed By: #### 2 923-1 #### [facility] CLIA [id number] [address] [place] [address] [place] Vit B12 SerPl-mCncon 024 Cobalamin (Vitamin B12) [Mass/Vol] 671 pg/mL Normal 232-1245 [facility] Comment on above: Order Comment: Speci men Type: BLOOD SPECIMEN Ordering Facility: [facility] Address: [address] [place] [address] Performed By: #### 4 485-9, 4498-2 #### [facility] CLIA [id number] [address] [place] [address] [place] 36on 02-09-2024 36 Ordering provider: Holley Date of last office visit: 05/21/2023 Date of next office visit: None. Updated/Validated preferred pharmacy: Yes Patient instructed to contact the pharmacy prior to picking up the medication: Yes (1) Medication name: Levothyroxine Medication dosage: 100 mcg (Micrograms) Monthly quantity needed: 90 How many day supply requestin days Medication route: oral (PO) Medication administration time(s): daily If taking medication PRN, reason for taking medication: N/A If this is a controlled substance do you receive this or any other controlled medication from any other doctor or facility: No Date of last refill (see medication tab): 09/25/2023 [facility] MTB SCREENon 11-17-2023 MITOGEN-NIL 9.9419 IU/mL Normal [facility] Comment on above: Performed By: #### L [id number] #### [facility] [address] [place] [address] Eduardo Ibrahim M.D. [id number] MTB SCREEN INTERPRETATION Negative Normal Negative [facility] Comment on above: Result Comment: No I FN-gamma response to M tuberculosis antigens was detected. Latent infection with M tuberculosis is unlikely. A single negative result does not exclude infection with M tuberculosis. In patients at high risk for M tuberculosis infection,a second test should be considered Performed By: #### L [id number] #### [facility] [address] [place] [address] Eduardo Ibrahim M.D. [id number] NIL 0.0581 IU/mL [facility] Comment on above: Performed By: #### L [id number] #### [facility] [address] [place] [address] Eduardo Ibrahim M.D. [id number] TB1-NIL 0.0132 IU/mL Normal 0.[address] [facility] Comment on above: Performed By: #### L [id number] #### [facility] [address] [place] [address] Eduardo Ibrahim M.D. [id number] TB2-NIL 0.004 IU/mL Normal 0.[address] [facility] Comment on above: Result Comment: Inte rferon gamma release is measured for specimens from each of the four collection tubes. A qualitative result (Negative, Positive, or Indeterminate) is based on interpretation of the four values, NIL, MITOGEN minus NIL (MITOGEN-NIL), TB1 minus NIL (TB1-NIL), and TB2 minus NIL (TB2-NIL). The NIL value represents nonspecific reactivity produced by the patient specimen. The MITOGEN-NIL value serves as the positive control for the patient specimen, demonstrating successful lymphocyte reactivity. The TB1-NIL tube specifically detects CD4+ lymphocyte reactivity, specifically stimulated by the TB1 antigens. The TB2-NIL tube detects both CD4+ and CD8+ lymphocyte reactivity, stimulated by the TB2 antigens. An overall Negative result does not completely rule out TB Infection. Performed By: #### L [id number] #### [facility] [address] Eduardo Ibrahim M.D. 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 FS =5.4 kPA. The CAP score is 249 and corresponds to steatosis grade of S1. The fibrosis interpretation threshold for history of gastric bypass diagnosis in Fibroscan is not well-established or validated and the reading may serve as a reference point for follow up. This reading corresponds: A 94% chance of stage 0-2 fibrosis A 6% chance of stage 3-4 fibrosis (advanced fibrosis) A <1% chance of stage 4 fibrosis (cirrhosis). A kPa >20 indicates a high likelihood of stage 4 fibrosis/cirrhosis, consider further testing to confirm. Payton Martin PA-C Others/All Fibroscan Fibrosis Risk <7 kPA = F0-F2 94%, F3+F4 6%, F4 <1% <10 kPA = F0-F2 88%, F3+F4 12%, F4 1.8% 10-15 kPA = F0-F2 47%, F3+F4 53%, F4 19% >15 kPA = F0-F2 17%, F3+F4 83%, F4 61% Grade CAP value up to 237 dB/M corresponds to S0 (< 10 % Fat) CAP value between (238 - 258 dB/M) corresponds to S1 (>/= 11 % Fat) CAP value between (259 - 289 dB/M) corresponds to S2 (>/= 33 % Fat) CAP value > 290dB/M corresponds to S3 (>/= 67 % Fat) stage 0 ( S0:< 10 % steatosis) stage 1 (>/= S1: 11%-33% steatosis) stage 2 (>/= S2: 34%-66% steatosis) stage 3 (>/= S3: > 66% steatosis) Reference Ankit Y, Carl Q, Ankit T, Shaye J, Ankit H, Christiano T. Controlled attenuation parameter for assessment of hepatic steatosis grades: a diagnostic meta-analysis. Int J Clin Exp Med. 2015 Feb 15;8(10):22828-06. PMID: 74929249; PMCID: [id number]. David M, Kwesi AVERY, Sarahr-Mallory M, Yuli F, Milo J, Farhana O, Lionel F, Олег M, Lacho G, Chris A, Vignesh E, Mele L, Emanuel G, Santiago A, Nicole U, Carrillo S, Oleksandr P, Maro V, de Celeste V, Sarah M, Malvin LACKEY. Refining the Baveno elastography criteria for the definition of compensated advanced chronic liver disease. J Hepatol. 2020;74(5):9038-0584. doi: 10.1016/j.jhep.2020.11. 050. Epub 2019Apr 19. PMID: 99787339. [facility] Radiology Study observation (narrative) [facility] 36on 09-25-2023 36 sent Normal [facility] 36 Medication name: levothyroxine (Synthroid, Levoxyl) 100 MCG tablet Medication dosage: 100 MCG Monthly quantity needed: 30 How many day supply requestin days Medication route: oral (PO) Medication administration time(s): daily If taking medication PRN, reason for taking medication: N/A If this is a controlled substance do you receive this or any other controlled medication from any other doctor or facility: N/A Ordering provider: Dr. Vazquez Date of last office visit: 08/27/23 Date of next office visit: 05/24/24 Date of last refill: (see medication tab): 03/04/23 Updated/Validated preferred pharmacy: Yes Patient instructed to contact the pharmacy prior to picking up the medication: n/a Normal [facility] Progress Noteon 08-27-2023 Progress Note The patient, Melissa Nichols is a 53 y.o. female identity was verified by name and date of . Injection of shingles vaccine was administered per Ran Vazquez Orders: Injection site: right deltoid IM Medication : SHINGRIX WAC: [id number] LOT: [id number] Exp: 08/27/2025 The patient tolerated the injection well and without incident. The patient was discharged home with education. (After Visit Summary) Normal [facility] Anti-DNA antibody, double-st randedon 05-23-2023 DNA double strand Ab Qn (S) 1 [IU]/mL IU/mL [facility] Comment on above: IU/mL Interpretation < or = 4 Negative 5-9 Indeterminate > or = 10 Positive C3 complementon 05-23-2023 Complement C3 [Mass/Vol] 129 mg/dL 83 - 193 mg/dL [facility] [email or web address] C4 complementon 05-23-2023 Complement C4 [Mass/Vol] 30 mg/dL 15 - 57 mg/dL [facility] CBC W Auto Differential pane l (Bld)on 05-23-2023 Basophils (Bld) [#/Vol] 50 10*3/uL [facility] [email or web address] Basophils/100 WBC (Bld) 1.5 % [facility] Eosinophils (Bld) [#/Vol] 132 10*3/uL [facility] Eosinophils/100 WBC (Bld) 4.0 % [facility] Erythrocyte distribution width (RBC) [Ratio] 11.4 % 11.0 - 15.0 % [facility] Hematocrit (Bld) [Volume fraction] 38.0 % 35.0 - 45.0 % [facility] Hemoglobin (Bld) [Mass/Vol] 12.9 g/dL 11.7 - 15.5 g/dL [facility] Interpretation and review of laboratory results Abnormal [facility] Lymphocytes (Bld) [#/Vol] 944 10*3/uL [facility] Lymphocytes/100 WBC (Bld) 28.6 % [facility] MCH (RBC) [Entitic mass] 31.9 pg 27.0 - 33.0 pg [facility] MCHC (RBC) [Mass/Vol] 33.9 g/dL 32.0 - 36.0 g/dL [facility] MCV (RBC) [Entitic vol] 93.8 fL 80.0 - 100.0 fL [facility] Monocytes (Bld) [#/Vol] 376 10*3/uL [facility] Monocytes/100 WBC (Bld) 11.4 % [facility] Neutrophils (Bld) [#/Vol] 1799 10*3/uL [facility] Neutrophils/100 WBC (Bld) 54.5 % [facility] Platelet mean volume (Bld) [Entitic vol] 9.7 fL 7.5 - 12.5 fL [facility] Platelets (Bld) [#/Vol] 233 10*3/uL [facility] RBC (Bld) [#/Vol] 4.05 10*6/uL [facility] WBC (Bld) [#/Vol] 3.3 10*3/uL Low [facility] Comprehensive metabolic 1998 panelon 05-23-2023 Albumin [Mass/Vol] 4.5 g/dL 3.6 - 5.1 g/dL [facility] Albumin/Globulin [Mass ratio] 1.9 {ratio} [facility] ALP [Catalytic activity/Vol] 73 U/L 37 - 153 U/L [facility] ALT [Catalytic activity/Vol] 23 U/L 6 - 29 U/L [facility] AST [Catalytic activity/Vol] 22 U/L 10 - 35 U/L [facility] Bilirubin [Mass/Vol] 0.5 mg/dL 0.2 - 1 .2 mg/dL [facility] Calcium [Mass/Vol] 9.1 mg/dL 8.6 - 10. 4 mg/dL [facility] Chloride [Moles/Vol] 104 mmol/L 98 - 11 0 mmol/L [facility] CO2 [Moles/Vol] 28 mmol/L 20 - 32 mmol/L [facility] Creatinine [Mass/Vol] 0.76 mg/dL 0.50 - 1.03 mg/dL [facility] GFR/1.73 sq M.predicted among non-blacks MDRD (S/P/Bld) [Vol rate/Area] 95 mL/min/{1.73_m2} > OR = 60 mL/min/1.73m 2 [facility] Globulin (S) [Mass/Vol] 2.4 g/dL [facility] Glucose [Mass/Vol] 84 mg/dL 65 - 99 mg/dL [facility] Comment on above: Fasting reference interval Potassium [Moles/Vol] 4.0 mmol/L 3.5 - 5.3 mmol/L [facility] Protein [Mass/Vol] 6.9 g/dL 6.1 - 8.1 g/dL [facility] Sodium [Moles/Vol] 141 mmol/L 135 - 146 mmol/L [facility] Urea nitrogen [Mass/Vol] 11 mg/dL 7 - 25 mg/dL [facility] Urea nitrogen/Creatinine [Mass ratio] SEE NOTE: [facility] Comment on above: Not Reported: BUN an d Creatinine are within reference range. Iron and Iron binding capaci ty panelon 05-23-2023 Iron [Mass/Vol] 75 ug/dL [facility] Iron binding capacity [Mass/Vol] 299 [facility] Iron saturation [Mass fraction] 25 [facility] Laboratory - Chemistry and C hemistry - challengeon 05-23-2023 25-hydroxyvitamin D3 [Mass/Vol] 71 ng/mL 30 - 100 ng/mL [facility] Comment on above: Vitamin D Status 25 -OH Vitamin D: Deficiency: <20 ng/mL Insufficiency: 20 - 29 ng/mL Optimal: > or = 30 ng/mL For 25-OH Vitamin D testing on patients on D2-supplementation and patients for whom quantitation of D2 and D3 fractions is required, the [employer]() 25-OH VIT D, (D2,D3), LC/MS/MS is recommended: order code 38791 (patients >2yrs). See Note 1 Note 1 For additional information, please refer to http://education.OGPlanet.Akvolution/faq/LBQ367 (This link is being provided for informational/ educational purposes only.) Ferritin [Mass/Vol] 215 ng/mL 16 - 232 ng/mL [facility] Transferrin [Mass/Vol] 223 mg/dL 188 - 341 mg/dL [facility] TSH Qn 2.66 m[IU]/L mIU/L [facility] Comment on above: Reference Range > or = 20 Years 0.40-4.50 Ranges First trimester 0.26-2.66 Second trimester 0.55-2.73 Third trimester 0.43-2.91 Laboratory - Hematology and Cell countson 05-23-2023 HbA1c (Bld) [Mass fraction] 5.6 % [facility] Comment on above: For the purpose of s creening for the presence of diabetes: <5.7% Consistent with the absence of diabetes 5.7-6.4% Consistent with increased risk for diabetes (prediabetes) > or =6.5% Consistent with diabetes This assay result is consistent with a decreased risk of diabetes. Currently, no consensus exists regarding use of hemoglobin A1c for diagnosis of diabetes in children. According to [place] Diabetes Association (ADA) guidelines, hemoglobin A1c <7.0% represents optimal control in non- diabetic patients. Different metrics may apply to specific patient populations. Standards of Medical Care in Diabetes(ADA). HbA1c performed on Darrell platform. Effective 04/29/23 a change in test platforms may have shifted HbA1c results compared to historical results. Lipid 1996 panelon 4 Cholesterol [Mass/Vol] 198 mg/dL [facility] - 200 mg/dL [facility] Cholesterol in HDL [Mass/Vol] 59 mg/dL > OR = 50 [facility] Cholesterol in LDL [Mass/Vol] 123 mg/dL High mg/dL (calc) [facility] Comment on above: Reference range: <10 0 Desirable range <100 mg/dL for primary prevention; <70 mg/dL for patients with CHD or diabetic patients with > or = 2 CHD risk factors. LDL-C is now calculated using the Lily calculation, which is a validated novel method providing better accuracy than the Friedewald equation in the estimation of LDL-C. Kalia LUNA et al. JUSTEN. 2013;310(19): 6138-1987 (http://education.OGPlanet.Akvolution/faq/QQP410) Cholesterol non HDL [Mass/Vol] 139 mg/dL High [facility] Comment on above: For patients with di abetes plus 1 major ASCVD risk factor, treating to a non-HDL-C goal of <100 mg/dL (LDL-C of <70 mg/dL) is considered a therapeutic option. Cholesterol.total/Chol esterol in HDL [Mass ratio] 3.4 {ratio} [facility] Interpretation and review of laboratory results Abnormal [facility] Triglyceride [Mass/Vol] 70 mg/dL [facility] - 150 mg/dL [facility] No Panel Informationon 05-23 [facility] Urinalysis complete panel (U )on 05-23-2023 Appearance (U) CLEAR CLEAR [facility] Bilirubin Ql (U) Negative NEGATIVE [facility] He alth Color (U) YELLOW YELLOW [facility] Glucose Ql (U) Negative NEGATIVE [facility] Hemoglobin Ql (U) Negative NEGATIVE [facility] H ealth Ketones Ql (U) Negative NEGATIVE [facility] Leukocyte esterase Test strip Ql (U) Negative NEGATIVE [facility] Nitrite Ql (U) Negative NEGATIVE [facility] pH (U) 7.0 [pH] 5.0 - 8.0 [facility] Protein Ql (U) Negative NEGATIVE [facility] Specific gravity (U) [Rel density] 1.006 1.001 - 1.035 [facility] EGD BARIATRICon 07-05-2022 [facility] Folate SerPl-mCncon 02-23-20 Folate [Mass/Vol] 18.2 ng/mL Normal >4.7 [facility] Comment on above: Order Comment: Yonathan hubbard Type: BLOOD SPECIMEN Ordering Facility: [facility] Address: [address] [place] [address] Performed By: #### 2 284-8, 2132-9 #### [facility] CLIA [id number] [address] OF [facility] HbA1c (Bld)on 02-22-2022 Average glucose Estimated from glycated hemoglobin (Bld) [Mass/Vol] 108 mg/dL Normal [facility] Comment on above: Order Comment: Yonathan hubbard Type: BLOOD SPECIMEN Ordering Facility: [facility] Address: [address] [place] [address] Result Comment: eAG: (Estimated average glucose) is a calculated value from HgbA1c and is medical detail representative of the average blood glucose level in the last 2-3 month period. Performed By: #### 5 5454-3 #### [facility] CLIA [id number] [address] [place] [address] [place] HbA1c (Bld) [Mass fraction] 5.4 % Normal 4.3-5.6 [facility] Comment on above: Order Comment: Yonathan hubbard Type: BLOOD SPECIMEN Ordering Facility: [facility] Address: [address] [place] [address] Result Comment: Amer [place] Diabetes Association guidelines indicate that patients with HgbA1c in the range 5.7-6.4% are at increased risk for development of diabetes, and intervention by lifestyle modification may be beneficial. HgbA1c greater or equal to 6.5% is considered diagnostic of diabetes. Performed By: #### 5 5454-3 #### [facility] CLIA [id number] [address] [place] [address] [place] PTH-Intact SerPl-ncon 02-09 Parathyrin.intact [Mass/Vol] 40 pg/mL Normal 15-65 [facility] Comment on above: Order Comment: Yonathan hubbard Type: BLOOD SPECIMEN Ordering Facility: [facility] Address: [address] [place] [address] Performed By: #### 2 731-8 #### [facility] CLIA [id number] [address] [place] [address] [place] VITAMIN B1 (THIAMINE), WHOLE BLOODon 02-22-2022 Thiamine (Bld) [Moles/Vol] 127.6 nmol/L Normal 84.3-213.3 [facility] Comment on above: Order Comment: Yonathan hubbard Type: BLOOD SPECIMEN Ordering Facility: [facility] Address: [address] [place] [address] Result Comment: This assay measures the concentration of thiamine diphosphate (TDP), the primary active form of vitamin B1. Approximately 90 percent of vitamin B1 present in whole blood is TDP. Thiamine and thiamine monophosphate, which comprise the remaining 10 percent, are not measured. This test was developed and its performance characteristics determined by [facility]'s [facility] ([facility] It has not been cleared or approved by the FDA. -[facility] is regulated under CLIA as qualified to perform high-complexity testing. This test is used for clinical purposes. It should not be regarded as investigational or for research. Performed By: #### B 1WB #### [facility] CLIA [id number] [address] [place] [address] [place] Vit B12 [facility] 10-14-2 022 Cobalamin (Vitamin B12) [Mass/Vol] 405 pg/mL Normal 232-1245 [facility] Comment on above: Order Comment: Speci men Type: BLOOD SPECIMEN Ordering Facility: [facility] Address: [address] [place] [address] Performed By: #### 2 284-8, 2132-9 #### [facility] CLIA [id number] [address] STATES OF [facility] DEXA BONE DENSITY AXIAL SKEL ETONon 10-15-2021 Patient Name: MELISSA NICHOLS Bone Density ACCESSION EXAM DATE/TIME PROCEDURE ORDERING PROVIDER [id number] 10/15/2021 09:16 EDT OT Bone Density DEXA MD WOO RACHEL L Axial Skeleton CPT code 20488 Reason For Exam (OT Bone Density DEXA Axial Skeleton) Z13.820, Z78.0 Report DXA BONE DENSITOMETRY: CLINICAL INDICATION: Asymptomatic post-menopausal status COMPARISON: 04/11/2017 on a different unit TECHNIQUE: Quantitative bone mineral densitometry of the hip and lumbar spine was performed with a dual energy x-ray observed absorptiometry device - [employer] Horizon W. Regions of interest were obtained through the left proximal femur and compared to the normal value of the young adult. Regions of interest were also obtained through the lumbar vertebrae with an average value determined and compared with the young adult. The measured bone density minus the bone density of the young normal reference divided by the reference standard deviation is expressed as the T score. Using the same formula adjusting the reference density and standard deviation for age and race determines the Z score. According to World Health Organization criteria: T-score of -1.0 or higher is normal. T-score between -1.0 and -2.5 is low bone density or osteopenia. T-score of -2.5 or lower is abnormally low, compatible with osteoporosis. T-score of -2.5 or less plus fragility fracture indicates severe osteoporosis. FINDINGS: Spine: L1-L4 Density 0.963 g/cm2. T-score: -0.8 Z-score: 0.0 Comparison from prior examination:Previous T score was 0.4 Hip: Femoral neck Density: 0.878 g/cm2. T-score: 0.3 Z-score: 1.0 Hip: Total hip Density: 1.064 g/cm2. T-score: 1.0 Z-score: 1.5 Bone Density Report Comparison from prior examination:Previous T score was 1.6 IMPRESSION: Normal bone density FRACTURE RISK: The estimated 10 year risk for a major osteoporosis-related fracture is 5.8 % and risk for hip fracture is 0.1 % (FRAX web version 3.08). FOLLOW-UP RECOMMENDATIONS: Patients with osteoporosis or or at high risk for fracture should have follow-up bone density tests. For Medicare patients, routine testing is allowed every 2 years. Patients who have low bone mass (T score -2.0 to -2.49), who are currently on treatment for low bone mass, or having risk factors for accelerated bone loss (glucocorticoids, aromatase inhibitors, etc.), consider repeat DXA in 1-2 years. Patients with osteopenia and no risk factors may consider follow-up every 3-5 years. Report Dictated on --- Final --- Dictated: 10/15/2021 4:31 pm Dictating Physician: MD DIETRICH JEFFREY Signed Date and Time: 10/15/2021 4:33 pm Signed by: MD DIETRICH JEFFREY Transcribed Date and Time: 10/15/2021 4:31 [facility] Hossein Dietrich MD - 10/15/2021 Patient Name: MELISSA NICHOLS [facility]#: [id number] Bone Density ACCESSION EXAM DATE/TIME PROCEDURE ORDERING PROVIDER [id number] 10/15/2021 09:16 EDT OT Bone Density DEXA MD THOMAS, NORMA Kaur Axial Skeleton CPT code 88696 Reason For Exam (OT Bone Density DEXA Axial Skeleton) Z13.820, Z78.0 Report DXA BONE DENSITOMETRY: CLINICAL INDICATION: Asymptomatic post-menopausal status COMPARISON: 04/11/2017 on a different unit TECHNIQUE: Quantitative bone mineral densitometry of the hip and lumbar spine was performed with a dual energy x-ray observed absorptiometry device - [employer] Horizon W. Regions of interest were obtained through the left proximal femur and compared to the normal value of the young adult. Regions of interest were also obtained through the lumbar vertebrae with an average value determined and compared with the young adult. The measured bone density minus the bone density of the young normal reference divided by the reference standard deviation is expressed as the T score. Using the same formula adjusting the reference density and standard deviation for age and race determines the Z score. According to World Health Organization criteria: T-score of -1.0 or higher is normal. T-score between -1.0 and -2.5 is low bone density or osteopenia. T-score of -2.5 or lower is abnormally low, compatible with osteoporosis. T-score of -2.5 or less plus fragility fracture indicates severe osteoporosis. FINDINGS: Spine: L1-L4 Density 0.963 g/cm2. T-score: -0.8 Z-score: 0.0 Comparison from prior examination:Previous T score was 0.4 Hip: Femoral neck Density: 0.878 g/cm2. T-score: 0.3 Z-score: 1.0 Hip: Total hip Density: 1.064 g/cm2. T-score: 1.0 Z-score: 1.5 Bone Density Report Comparison from prior examination:Previous T score was 1.6 IMPRESSION: Normal bone density FRACTURE RISK: The estimated 10 year risk for a major osteoporosis-related fracture is 5.8 % and risk for hip fracture is 0.1 % (FRAX web version 3.08). FOLLOW-UP RECOMMENDATIONS: Patients with osteoporosis or or at high risk for fracture should have follow-up bone density tests. For Medicare patients, routine testing is allowed every 2 years. Patients who have low bone mass (T score -2.0 to -2.49), who are currently on treatment for low bone mass, or having risk factors for accelerated bone loss (glucocorticoids, aromatase inhibitors, etc.), consider repeat DXA in 1-2 years. Patients with osteopenia and no risk factors may consider follow-up every 3-5 years. Report Dictated on --- Final --- Dictated: 10/15/2021 4:31 pm Dictating Physician: MD DIETRICH JEFFREY Signed Date and Time: 10/15/2021 4:33 pm Signed by: MD DIETRICH JEFFREY Transcribed Date and Time: 10/15/2021 4:31 [facility] Work Phone: Radiology Study observation (narrative) [facility] Work Phone: DEXA BONE DENSITY AXIAL SKEL ETONOrdered By: Hossein Dietrich on 10-15-2021 [facility] Work Phone: OT Bone Density DEXA Axial S keletonon 10-15-2021 OT Bone Density DEXA Axial Skeleton Patient Name: MELISSA NICHOLS [facility]#: [id number] Bone Density ACCESSION EXAM DATE/TIME PROCEDURE ORDERING PROVIDER [id number] 10/15/2021 09:16 EDT OT Bone Density DEXA MD THOMAS, NORMA Kaur Axial Skeleton CPT code 79060 Reason For Exam (OT Bone Density DEXA Axial Skeleton) Z13.820, Z78.0 Report DXA BONE DENSITOMETRY: CLINICAL INDICATION: Asymptomatic post-menopausal status COMPARISON: 04/11/2017 on a different unit TECHNIQUE: Quantitative bone mineral densitometry of the hip and lumbar spine was performed with a dual energy x-ray observed absorptiometry device - [employer] Horizon W. Regions of interest were obtained through the left proximal femur and compared to the normal value of the young adult. Regions of interest were also obtained through the lumbar vertebrae with an average value determined and compared with the young adult. The measured bone density minus the bone density of the young normal reference divided by the reference standard deviation is expressed as the T score. Using the same formula adjusting the reference density and standard deviation for age and race determines the Z score. According to World Health Organization criteria: T-score of -1.0 or higher is normal. T-score between -1.0 and -2.5 is low bone density or osteopenia. T-score of -2.5 or lower is abnormally low, compatible with osteoporosis. T-score of -2.5 or less plus fragility fracture indicates severe osteoporosis. FINDINGS: Spine: L1-L4 Density 0.963 g/cm2. T-score: -0.8 Z-score: 0.0 Comparison from prior examination:Previous T score was 0.4 Hip: Femoral neck Density: 0.878 g/cm2. T-score: 0.3 Z-score: 1.0 Hip: Total hip Density: 1.064 g/cm2. T-score: 1.0 Z-score: 1.5 Bone Density Report Comparison from prior examination:Previous T score was 1.6 IMPRESSION: Normal bone density FRACTURE RISK: The estimated 10 year risk for a major osteoporosis-related fracture is 5.8 % and risk for hip fracture is 0.1 % (FRAX web version 3.08). FOLLOW-UP RECOMMENDATIONS: Patients with osteoporosis or or at high risk for fracture should have follow-up bone density tests. For Medicare patients, routine testing is allowed every 2 years. Patients who have low bone mass (T score -2.0 to -2.49), who are currently on treatment for low bone mass, or having risk factors for accelerated bone loss (glucocorticoids, aromatase inhibitors, etc.), consider repeat DXA in 1-2 years. Patients with osteopenia and no risk factors may consider follow-up every 3-5 years. Report Dictated on Final Dictated: 10/15/2021 4:31 pm Dictating Physician: MD DIETRICH JEFFREY Signed Date and Time: 10/15/2021 4:33 pm Signed by: MD DIETRICH JEFFREY Transcribed Date and Time: 10/15/2021 4:31 Normal [facility] No Panel Informationon 06-26 Lurdes Agustin MD 022 4:20 PM Splint Application Date/Time: 06/26/2021 4:09 PM Performed by: Lurdes Agustin MD Authorized by: Lurdes Agustin MD Location details: right ankle Splint type: short leg Supplies used: Ortho-Glass Post-procedure: The splinted body part was neurovascularly unchanged following the procedure. Patient tolerance: patient tolerated the procedure well with no immediate complications [facility] 1. Virtually nondisplaced, transversely oriented fracture through the distal fibula. 2. Soft tissue swelling over lateral malleolus. [employer] Workstation ID: [id number] [employer] EXAMINATION: XR ANKLE RIGHT 3+ VIEWS (STANDARD) 06/26/2021 2:29 pm HISTORY: ORDERING SYSTEM PROVIDED HISTORY: right ankle injury, TECHNOLOGIST PROVIDED HISTORY: Injury/Trauma Reason for exam: R ankle pain Cancer History: n Surgery, RadiationHistory: n Encounter Type: Initial Mechanism of injury: fall 2 hrs ago ORDERING SYSTEM PROVIDED DIAGNOSIS CODES: S99.911A Ankle injury, right, initial encounter COMPARISON: None. FINDINGS: There is virtually nondisplaced, transversely oriented fracture through the distal fibula. Ankle mortise is normally aligned. Base of the 5th metatarsal appears intact. There is significant soft tissue swelling overlying the lateral malleolus. There is an enthesophyte at the insertion site of plantar aponeurosis. Bones appear slightly osteopenic. [facility] Nancy Acevedo MD - 06/26/2021 EXAMINATION: XR ANKLE RIGHT 3+ VIEWS (STANDARD) 06/26/2021 2:29 pm HISTORY: ORDERING SYSTEM PROVIDED HISTORY: right ankle injury, TECHNOLOGIST PROVIDED HISTORY: Injury/Trauma Reason for exam: R ankle pain Cancer History: n Surgery, RadiationHistory: n Encounter Type: Initial Mechanism of injury: fall 2 hrs ago ORDERING SYSTEM PROVIDED DIAGNOSIS CODES: S99.911A Ankle injury, right, initial encounter COMPARISON: None. FINDINGS: There is virtually nondisplaced, transversely oriented fracture through the distal fibula. Ankle mortise is normally aligned. Base of the 5th metatarsal appears intact. There is significant soft tissue swelling overlying the lateral malleolus. There is an enthesophyte at the insertion site of plantar aponeurosis. Bones appear slightly osteopenic. IMPRESSION: 1. Virtually nondisplaced, transversely oriented fracture through the distal fibula. 2. Soft tissue swelling over lateral malleolus. [employer] Workstation ID: [id number] [facility] Splint applied per orders, pt tolerated well [facility] Radiology Study observation (narrative) [facility] No Panel InformationOrdered By: Nancy Acevedo on 06-26-2021 [facility] Work Phone: XR ANKLE RIGHT 3+ VIEWS (STA NDARD)on 06-26-2021 XR ANKLE RIGHT 3+ VIEWS (STANDARD) EXAMINATION: XR ANKLE RIGHT 3+ VIEWS (STANDARD) 06/26/2021 2:29 pm HISTORY: ORDERING SYSTEM PROVIDED HISTORY: right ankle injury, TECHNOLOGIST PROVIDED HISTORY: Injury/Trauma Reason for exam: R ankle pain Cancer History: n Surgery, RadiationHistory: n Encounter Type: Initial Mechanism of injury: fall 2 hrs ago ORDERING SYSTEM PROVIDED DIAGNOSIS CODES: S99.911A Ankle injury, right, initial encounter COMPARISON: None. FINDINGS: There is virtually nondisplaced, transversely oriented fracture through the distal fibula. Ankle mortise is normally aligned. Base of the 5th metatarsal appears intact. There is significant soft tissue swelling overlying the lateral malleolus. There is an enthesophyte at the insertion site of plantar aponeurosis. Bones appear slightly osteopenic. IMPRESSION: 1. Virtually nondisplaced, transversely oriented fracture through the distal fibula. 2. Soft tissue swelling over lateral malleolus. [employer] [employer] Workstation ID: [id number] Dictated by: NANCY ACEVEDO on FriJun 26, 2021 3:16:28 PM EST Transcribed by: ROSEMARY HUSAIN on FriJun 26, 2021 3:46:00 PM EST Finalized by: NANCY ACEVEDO on FriJun 26, 2021 3:57:29 PM EST Normal [facility] Comment on above: Order Comment: Injur y/Trauma or Illness?:Injury/Trauma How long have you had these symptoms (acute/chronic)?:Acute Reason for exam?:R ankle pain History of cancer?:n Surgeries, chemotherapy, or radiation?:n Type of Exam?:Initial Mechanism of injury?:fall 2 hrs ago Anti DNA DSon 04-06-2021 Anti-DNA (DS) Ab Qnt 1 IU/mL Normal 0-9 [facility] Comment on above: Order Comment: Perfo rmed at: - [facility] [address] [place], [place] [id number] Solar [employer]ovoltaic Systems Engineer: Odell Ritchie PhD, Phone: [phone] Result Comment: Nega tive <5 Equivocal 5 - 9 Positive >9 Performed By: #### D NADSAB #### [facility] RESULTS C-Reactive Proteinon 021 CRP [Mass/Vol] mg/L Normal <=9.9 [facility] Comment on above: Performed By: #### C 3COMP, CRPR, C4COMP #### [facility] [address] [place] [address] 62725 C3 Complementon 04-03-2021 C3 110 mg/dL Normal 90-180 [facility] Comment on above: Performed By: #### C 3COMP, CRPR, C4COMP #### [facility] [address] [place] [address] 77686 C4 Complementon 04-03-2021 C4 26 mg/dL Normal 10-40 [facility] Comment on above: Performed By: #### C 3COMP, CRPR, C4COMP #### [facility] [address] [place] [address] 57247 CBC with Diffon 04-03-2021 BA# 0.1 x(10)3/cumm Normal 0.0-0.1 [facility] Comment on above: Performed By: #### C BCDIFF #### [facility] [address] [place] [address] 50356 Basophils/100 WBC (Bld) 1.4 % High 0.0-1.0 [facility] Comment on above: Performed By: #### C BCDIFF #### [facility] [address] [place] [address] 75948 EO# 0.2 x(10)3/cumm Normal 0.0-0.4 [facility] Comment on above: Performed By: #### C BCDIFF #### [facility] [address] [place] [address] 37853 Eosinophils/100 WBC (Bld) 5.0 % Normal 0.0-6.1 [facility] Comment on above: Performed By: #### C BCDIFF #### [facility] [address] [place] [address] 89811 Erythrocyte distribution width (RBC) [Ratio] 13.6 % Normal 11.1-15.3 [facility] Comment on above: Performed By: #### C BCDIFF #### [facility] [address] [place] [address] 26278 Hematocrit (Bld) [Volume fraction] 37.6 % Normal 34.6-45.0 [facility] Comment on above: Performed By: #### C BCDIFF #### [facility] [address] [place] [address] 57383 Hemoglobin (Bld) [Mass/Vol] 12.5 g/dL Normal 11.5-15.5 [facility] Comment on above: Performed By: #### C BCDIFF #### [facility] [address] [place] [address] 54129 LY# 1.1 x(10)3/cumm Normal 0.8-2.9 [facility] Comment on above: Performed By: #### C BCDIFF #### [facility] [address] [place] [address] 88844 Lymphocytes/100 WBC (Bld) 29.2 % Normal 12.2-42.6 [facility] Comment on above: Performed By: #### C BCDIFF #### [facility] [address] [place] [address] 60276 MCH (RBC) [Entitic mass] 31.2 pg Normal 27.2-33.6 [facility] Comment on above: Performed By: #### C BCDIFF #### [facility] [address] [place] [address] 47048 MCHC (RBC) [Mass/Vol] 33.2 g/dL Normal 32.9-35.3 [facility] Comment on above: Performed By: #### C BCDIFF #### [facility] [address] [place] [address] 99905 MCV (RBC) [Entitic vol] 93.9 fL Normal 81.3-96.7 [facility] Comment on above: Performed By: #### C BCDIFF #### [facility] [address] [place], [place] [address] MO# 0.5 x(10)3/cumm Normal 0.2-0.8 [facility] Comment on above: Performed By: #### C BCDIFF #### [facility] [address] [place] [address] 93055 Monocytes/100 WBC (Bld) 13.6 % High 3.3-11.6 [facility] Comment on above: Performed By: #### C BCDIFF #### [facility] [address] [place] [address] 51135 NE# 1.9 x(10)3/cumm Normal 1.3-7.4 [facility] Comment on above: Performed By: #### C BCDIFF #### [facility] [address] [place] [address] 69157 Neutrophils/100 WBC (Bld) 50.8 % Normal 44.9-78.8 [facility] Comment on above: Performed By: #### C BCDIFF #### [facility] [address] [place] [address] 33551 Platelet mean volume (Bld) [Entitic vol] 7.5 fL Normal 6.4-10.0 [facility] Comment on above: Performed By: #### C BCDIFF #### [facility] [address] [place] [address] 09772 PLT 258 x(10)3/cumm Normal 138-367 [facility] Comment on above: Performed By: #### C BCDIFF #### [facility] [address] [place] [address] 83649 Plt Morph Normal [facility] Comment on above: Performed By: #### C BCDIFF #### [facility] [address] [place] [address] 47724 RBC 4.00 X(10)6/cumm Normal 3.90-5.10 [facility] Comment on above: Performed By: #### C BCDIFF #### [facility] [address] [place] [address] 87646 RBC Morph cont Normal [facility] Comment on above: Performed By: #### C BCDIFF #### [facility] [address] [place], [place] [address] RBC morphology finding Nom (Bld) Normal [facility] Comment on above: Performed By: #### C BCDIFF #### [facility] [address] [place], [place] [address] WBC 3.7 x(10)3/cumm Normal 3.6-10.3 [facility] Comment on above: Performed By: #### C BCDIFF #### [facility] [address] [place], [place] [address] WBC Morph Normal [facility] Comment on above: Performed By: #### C BCDIFF #### [facility] [address] [place], [place] [address] Comprehensive Metabolic Pane vaibhav 04-03-2021 Albumin [Mass/Vol] 4.1 g/dL Normal 3.5-5.2 [facility] Comment on above: Performed By: #### C 3COMP, C4COMP #### [facility] [address] [place] [address] ALP [Catalytic activity/Vol] 88 U/L Normal 35-129 [facility] Comment on above: Performed By: #### C 3COMP, C4COMP #### [facility] [address] [place], [place] [address] ALT [Catalytic activity/Vol] 22 U/L Normal <=41 [facility] Comment on above: Performed By: #### C 3COMP, C4COMP #### [facility] [address] [place], [place] [address] Anion gap [Moles/Vol] 7 mmol/L Low 8-15 [facility] Comment on above: Performed By: #### C 3COMP, C4COMP #### [facility] [address] [place], [place] [address] AST [Catalytic activity/Vol] 26 U/L Normal <=40 [facility] Comment on above: Performed By: #### C 3COMP, C4COMP #### [facility] [address] [place], [place] [address] Bili, Total 0.3 mg/dL Normal <=1.2 [facility] Comment on above: Performed By: #### C 3COMP, C4COMP #### [facility] [address] [place] [address] 25873 Calcium [Mass/Vol] 9.0 mg/dL Normal 8.6-10.6 [facility] Comment on above: Performed By: #### C 3COMP, C4COMP #### [facility] [address] [place] [address] 50658 Chloride [Moles/Vol] 105 mmol/L Normal 98-107 [facility] Comment on above: Performed By: #### C 3COMP, C4COMP #### [facility] [address] [place] [address] 91435 CO2 [Moles/Vol] 28 mmol/L Normal 22-29 [facility] Comment on above: Performed By: #### C 3COMP, C4COMP #### [facility] [address] [place] [address] 67249 Creatinine [Mass/Vol] 0.7 mg/dL Normal 0.5-1.2 [facility] Comment on above: Performed By: #### C 3COMP, C4COMP #### [facility] [address] [place] [address] 87905 eGFR -Amer >=60 Normal >=60 [facility] Comment on above: Performed By: #### C 3COMP, C4COMP #### [facility] [address] [place] [address] 05125 GFR/1.73 sq M.predicted among non-blacks MDRD (S/P/Bld) [Vol rate/Area] mL/min/{1.73_m2} Normal >=60 [facility] Comment on above: Performed By: #### C 3COMP, C4COMP #### [facility] [address] [place] [address] 40836 Glucose [Mass/Vol] 60 mg/dL Low 74-109 [facility] Comment on above: Performed By: #### C 3COMP, C4COMP #### [facility] [address] [place] [address] 66533 Potassium [Moles/Vol] 4.3 mmol/L Normal 3.4-5.1 [facility] Comment on above: Performed By: #### C 3COMP, C4COMP #### [facility] [address] [place] [address] 24510 Prot Total 6.8 g/dL Normal 6.4-8.3 [facility] Comment on above: Performed By: #### C 3COMP, C4COMP #### [facility] [address] [place] [address] 46242 Sodium [Moles/Vol] 140 mmol/L Normal 136-145 [facility] Comment on above: Performed By: #### C 3COMP, C4COMP #### [facility] [address] [place] [address] 65443 Urea nitrogen [Mass/Vol] 11 mg/dL Normal 6-23 [facility] Comment on above: Performed By: #### C 3COMP, C4COMP #### [facility] [address] [place] [address] 01971 Sed Rate - Westergrenon 11-2 Sed Rate 3 mm/hr Normal 0-20 [facility] Comment on above: Performed By: #### E SR #### [facility] [address] [place] [address] 92954 Provider Note - ED v2on 10-0 Provider Note - ED v2 Provider Note - ED v2: Chart Review: ED NOTES ED NOTES: Melissa is a 50 year old nonsmoking, female with known undifferentiated autoimmune disease taking plaquenil who presents with a positive covid -19 test on friday, 02/09. She endorses symptoms of headache, body aches, nasal congestion, sore throat, loss of taste and smell, and fever and chills for 5 days. She has been treating her symptoms with dayquil and nyquil which helps to reduce symptoms. She also has increased joint pain that she normally experiences with her autoimmune disease. HISTORY OF PRESENTING ILLNESS MELISSA is a 50 year old Female and was seen by me at 12-Feb-2021 14:43 for a chief complaint of cold symptoms. The historian is the patient. Triage Information: Most recent Vital Sign Value Date PAST MEDICAL HISTORY ATTESTATION: I have reviewed and confirmed nurse's/medic's notes for patient's medications, allergies, and medical, surgical, family and social history CURRENT OR FORMER SUBSTANCE USE: NO: Cigarette/Tobacco ALLERGIES/INTOLERANCES: No documented data. HEALTH HISTORY: No documented data. OUTPATIENT MEDICATIONS: Home Medications Review Status for Reconciliation: Complete Med Status: No Current Medications SIGNIFICANT EVENTS: No documented data. COLOR MAKER: Is : no Is : no PHYSICAL EXAM CONSTITUTIONAL: well nourished, awake, alert, oriented to person, place, time/situation and in mild to moderate distress. HENMT: Airway patent, ears with clear tympanic membranes on right; left with partial occlusion from ear wax. Nasal mucosa clear. Mouth with normal mucosa. Throat erythematous and has no vesicles, no oropharyngeal exudates and uvula is midline. Face with no lymph node enlargement. EYES: Clear bilaterally, pupils equal, round and reactive to light. CARDIOVASCULAR: Normal rate, regular rhythm. Heart sounds S1, S2. No murmurs, rubs or gallops. PMI non-displaced. RESPIRATORY: Breath sounds clear and equal bilaterally. no wheezes or rales. MUSCULOSKELETAL: Spine appears normal, range of motion is not limited, no muscle or joint tenderness. SKIN: Skin normal color for race, warm, dry and intact. No evidence of trauma. MEDICAL DECISION MAKING/ED COURSE MDM/ED COURSE: Melissa is 50 year old female with COVID-19 and past medical history of undifferentiated autoimmune disease. I will order monoclonal antibodies. 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 She was informed to await a phone call for scheduling. Recommended to continue OTC medication for symptoms. Patient was advised to seek medical attention from her PCP or return if her symptoms worsened. Patient verbalized understanding of the plan of care. CLINICAL IMPRESSION Diagnosis/Annotation: ED Dx Name:COVID-19 Code:U07.1 Name:Joint pain in both hands Code:M25.541 Disposition: discharged Type: home ATTESTATION CRITICAL CARE TIME Is this a critically ill patient: no Electronic Signatures: Codi Quiroz (AARON-WALKER) (Signed 12-Feb-2021 15:20) Authored: ED Notes, HPI, PMH, PE, MDM/ED Course, Clinical Impression, Attestation, Chart Review, Scores Last Updated: 12-Feb-2021 15:20 by Codi Quiroz (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-REPORT CLERK) Normal [facility] Anti DNA DSon 04-21-2020 Anti-DNA (DS) Ab Qnt 1 IU/mL Normal 0-9 [facility] Comment on above: Order Comment: Perfo rmed at: - [facility] [address] [id number] [employer]oltaic Systems Engineer: Odell Ritchie PhD, Phone: [phone] Result Comment: Nega tive <5 Equivocal 5 - 9 Positive >9 Performed By: #### D NADSAB #### [facility] RESULTS C-Reactive Proteinon 020 CRP [Mass/Vol] 1.1 mg/L Normal <=9.9 [facility] Comment on above: Performed By: #### C 3COMP, C4COMP #### [facility] [address] [place] [address] 78210 C3 Complementon 04-18-2020 C3 111 mg/dL Normal 90-180 [facility] Comment on above: Performed By: #### C 3COMP, C4COMP #### [facility] [address] [place] [address] 04230 C4 Complementon 04-18-2020 C4 22 mg/dL Normal 10-40 [facility] Comment on above: Performed By: #### C 3COMP, C4COMP #### [facility] [address] [place] [address] 36464 CBC with Diffon 04-18-2020 BA# 0.0 x(10)3/cumm Normal 0.0-0.1 [facility] Comment on above: Performed By: #### C 3COMP, C4COMP #### [facility] [address] [place] [address] 28652 Basophils/100 WBC (Bld) 1.1 % High 0.0-1.0 [facility] Comment on above: Performed By: #### C 3COMP, C4COMP #### [facility] [address] [place] [address] 93239 EO# 0.1 x(10)3/cumm Normal 0.0-0.4 [facility] Comment on above: Performed By: #### C 3COMP, C4COMP #### [facility] [address] [place] [address] 49691 Eosinophils/100 WBC (Bld) 2.8 % Normal 0.0-6.1 [facility] Comment on above: Performed By: #### C 3COMP, C4COMP #### [facility] [address] [place], [place] [address] Erythrocyte distribution width (RBC) [Ratio] 12.4 % Normal 11.1-15.3 [facility] Comment on above: Performed By: #### C 3COMP, C4COMP #### [facility] [address] [place] [address] 37989 Hematocrit (Bld) [Volume fraction] 37.7 % Normal 34.6-45.0 [facility] Comment on above: Performed By: #### C 3COMP, C4COMP #### [facility] [address] [place], [place] [address] Hemoglobin (Bld) [Mass/Vol] 12.8 g/dL Normal 11.5-15.5 [facility] Comment on above: Performed By: #### C 3COMP, C4COMP #### [facility] [address] [place], [place] [address] LY# 1.1 x(10)3/cumm Normal 0.8-2.9 [facility] Comment on above: Performed By: #### C 3COMP, C4COMP #### [facility] [address] [place] [address] 02166 Lymphocytes/100 WBC (Bld) 28.8 % Normal 12.2-42.6 [facility] Comment on above: Performed By: #### C 3COMP, C4COMP #### [address] [address] MCH (RBC) [Entitic mass] 32.1 pg Normal 27.2-33.6 [facility] Comment on above: Performed By: #### C 3COMP, C4COMP #### [facility] [address] [place], [place] [address] MCHC (RBC) [Mass/Vol] 34.0 g/dL Normal 32.9-35.3 [facility] Comment on above: Performed By: #### Kaya FIERRO C4COMP #### [facility] [address] [place] [address] 63184 MCV (RBC) [Entitic vol] 94.3 fL Normal 81.3-96.7 [facility] Comment on above: Performed By: #### Kaya FIERRO C4COMP #### [facility] [address] [place] [address] 03388 MO# 0.4 x(10)3/cumm Normal 0.2-0.8 [facility] Comment on above: Performed By: #### Kaya FIERRO C4COMP #### [facility] [address] [place], [place] [address] Monocytes/100 WBC (Bld) 11.0 % Normal 3.3-11.6 [facility] Comment on above: Performed By: #### Kaya FIERRO C4COMP #### [facility] [address] [place], [place] [address] NE# 2.2 x(10)3/cumm Normal 1.3-7.4 [facility] Comment on above: Performed By: #### Kaya FIERRO C4COMP #### [facility] [address] [place], [place] [address] Neutrophils/100 WBC (Bld) 56.3 % Normal 44.9-78.8 [facility] Comment on above: Performed By: #### Kaya 3CBRENT C4COMP #### [facility] [address] [place] [address] 59541 Platelet mean volume (Bld) [Entitic vol] 7.5 fL Normal 6.4-10.0 [facility] Comment on above: Performed By: #### Kaya 3CBRENT C4COMP #### [facility] [address] [place], [place] [address] PLT 242 x(10)3/cumm Normal 138-367 [facility] Comment on above: Performed By: #### Kaya 3CBRENT C4COMP #### [facility] [address] [place] [address] Plt Morph Normal [facility] Comment on above: Performed By: #### C 3COMP, C4COMP #### [facility] [address] [place] [address] RBC 4.00 X(10)6/cumm Normal 3.90-5.10 [facility] Comment on above: Performed By: #### C 3COMP, C4COMP #### [facility] [address] [place] [address] RBC Morph cont Normal [facility] Comment on above: Performed By: #### C 3COMP, C4COMP #### [facility] [address] [place] [address] RBC morphology finding Nom (Bld) Normal [facility] Comment on above: Performed By: #### C 3COMP, C4COMP #### [facility] [address] [place] [address] WBC 3.9 x(10)3/cumm Normal 3.6-10.3 [facility] Comment on above: Performed By: #### C 3COMP, C4COMP #### [facility] [address] [place], [place] [address] WBC Morph Normal [facility] Comment on above: Performed By: #### C 3COMP, C4COMP #### [facility] [address] [place] [address] Comprehensive Metabolic Pane vaibhav 04-18-2020 Albumin [Mass/Vol] 4.3 g/dL Normal 3.5-5.2 [facility] Comment on above: Performed By: #### C 3COMP, C4COMP #### [facility] [address] [place], [place] [address] ALP [Catalytic activity/Vol] 91 U/L Normal 35-129 [facility] Comment on above: Performed By: #### C 3COMP, C4COMP #### [facility] [address] [place] [address] ALT [Catalytic activity/Vol] 30 U/L Normal <=41 [facility] Comment on above: Performed By: #### C 3COMP, C4COMP #### [facility] [address] [place] [address] 41142 Anion gap [Moles/Vol] 9 mmol/L Normal 8-15 [facility] Comment on above: Performed By: #### C 3COMP, C4COMP #### [facility] [address] [place] [address] 36528 AST [Catalytic activity/Vol] 26 U/L Normal <=40 [facility] Comment on above: Performed By: #### C 3COMP, C4COMP #### [facility] [address] [place] [address] 82043 Bili, Total 0.4 mg/dL Normal <=1.2 [facility] Comment on above: Performed By: #### C 3COMP, C4COMP #### [facility] [address] [place] [address] 69088 Calcium [Mass/Vol] 10.1 mg/dL Normal 8.6-10.6 [facility] Comment on above: Performed By: #### C 3COMP, C4COMP #### [facility] [address] [place] [address] 56311 Chloride [Moles/Vol] 103 mmol/L Normal 98-107 [facility] Comment on above: Performed By: #### C 3COMP, C4COMP #### [facility] [address] [place] [address] 60555 CO2 [Moles/Vol] 31 mmol/L High 22-29 [facility] Comment on above: Performed By: #### C 3COMP, C4COMP #### [facility] [address] [place] [address] 88832 Creatinine [Mass/Vol] 0.8 mg/dL Normal 0.5-1.2 [facility] Comment on above: Performed By: #### C 3COMP, C4COMP #### [facility] [address] [place] [address] 54642 eGFR -Amer >=60 Normal >=60 [facility] Comment on above: Performed By: #### C 3COMP, C4COMP #### [facility] [address] [place] [address] 55201 GFR/1.73 sq M.predicted among non-blacks MDRD (S/P/Bld) [Vol rate/Area] mL/min/{1.73_m2} Normal >=60 [facility] Comment on above: Performed By: #### C 3COMP, C4COMP #### [facility] [address] [place] [address] 88561 Glucose [Mass/Vol] 93 mg/dL Normal 74-109 [facility] Comment on above: Performed By: #### C 3COMP, C4COMP #### [facility] [address] [place] [address] 71312 Potassium [Moles/Vol] 4.4 mmol/L Normal 3.4-5.1 [facility] Comment on above: Performed By: #### C 3COMP, C4COMP #### [facility] [address] [place] [address] 54925 Prot Total 6.9 g/dL Normal 6.4-8.3 [facility] Comment on above: Performed By: #### C 3COMP, C4COMP #### [facility] [address] [place] [address] 11897 Sodium [Moles/Vol] 143 mmol/L Normal 136-145 [facility] Comment on above: Performed By: #### C 3COMP, C4COMP #### [facility] [address] [place] [address] 90730 Urea nitrogen [Mass/Vol] 13 mg/dL Normal 6-23 [facility] Comment on above: Performed By: #### C 3COMP, C4COMP #### [address] [address] Sed Rate - Westergrenon 12-0 Sed Rate 2 mm/hr Normal 0-20 [facility] Comment on above: Performed By: #### E SR #### [address] [address] [facility] DIGITAL DIAGNOSTIC UNILATERAL LEFTon 07-20-2019 Patient Name: MELISSA NICHOLS ---Mammography--- Exam Date/Time 07/20/2019 09:40:33 EDT Exam MG Breast Tomosynthesis Left Ordering Physician JULIO WARNER DIANE R Accession Number [id number] CPT4 Codes 30485 (MG Breast Tomosynthesis Left), 15493 (MG MAMMO 2D DIAGNOSTIC) Reason For Exam cellulitis of left breast N61.0 Report TIME SINCE LAST MAMMOGRAM: Last mammogram was performed 7 months ago. REASON FOR EXAM: clinical finding. INDICATED PROBLEM: Indicated problem(s): left breast skin changes to breast Left breast other indicated problem, cellulitis. PROCEDURE: MG BREAST TOMOSYNTHESIS LEFT: JULY 20, 2019 - 2D/3D Procedure 3D CC and MLO view(s) were taken of the left breast. 2D CC and MLO view(s) were taken of the left breast. Prior study comparison: December 14, 2015, bilateral screening 3D/tomosynthesis performed at [facility]. December 06, 2014, bilateral screening mammogram performed at [facility]. July 24, 2012, bilateral screening mammogram performed at [facility]. TISSUE DENSITY: The breast tissue is heterogeneously dense, which could obscure underlying abnormalities. . FINDINGS: Diagnostic imaging was performed for left breast cellulitis. The patient's redness and most other symptoms have resolved following antibiotic therapy, except a ridgelike area of tissue laterally which reflects a change. Mammogram: No masses, architectural distortions, or suspiciously clustered microcalcifications are seen in the left breast. Further imaging evaluation of the area of palpable concern was performed with ultrasound as detailed below. Left breast ultrasound: Targeted scanning performed at the site of palpable concern in the left upper breast reveals no abscess or other abnormality. IMPRESSION: No mammographic or targeted sonographic evidence of malignancy or other significant abnormality. Markings on images: BB's = Nipples; skin lesions Open blackfeet = Palpable Line = Scar US BREAST LIMITED LEFT: JULY 20, 2019 - 2D digital mammography and tomosynthesis imaging were performed and reviewed with CAD. ASSESSMENT: Category 1 Negative (Overall) RECOMMENDATION: Routine screening mammogram of both breasts. . Report Dictated on --- Final --- Signed Date and Time: 07/20/2019 10:13 am Signed by: MD KALINA, SUNIL Kaur [facility], [place] Cuate, Teodoro Incoming Radiology Results From [facility] - 07/20/2019 11:33 AM EDT Patient Name: MELISSA NICHOLS ---Mammography--- Exam Date/Time 07/20/2019 09:40:33 EDT Exam MG Breast Tomosynthesis Left Ordering Physician JULIO WARNER DIANE R Accession Number [id number] CPT4 Codes 67075 (MG Breast Tomosynthesis Left), 07946 (MG MAMMO 2D DIAGNOSTIC) Reason For Exam cellulitis of left breast N61.0 Report TIME SINCE LAST MAMMOGRAM: Last mammogram was performed 7 months ago. REASON FOR EXAM: clinical finding. INDICATED PROBLEM: Indicated problem(s): left breast skin changes to breast Left breast other indicated problem, cellulitis. PROCEDURE: MG BREAST TOMOSYNTHESIS LEFT: JULY 20, 2019 - 2D/3D Procedure 3D CC and MLO view(s) were taken of the left breast. 2D CC and MLO view(s) were taken of the left breast. Prior study comparison: December 14, 2015, bilateral screening 3D/tomosynthesis performed at [facility]. December 06, 2014, bilateral screening mammogram performed at [facility]. July 24, 2012, bilateral screening mammogram performed at [facility]. TISSUE DENSITY: The breast tissue is heterogeneously dense, which could obscure underlying abnormalities. . FINDINGS: Diagnostic imaging was performed for left breast cellulitis. The patient's redness and most other symptoms have resolved following antibiotic therapy, except a ridgelike area of tissue laterally which reflects a change. Mammogram: No masses, architectural distortions, or suspiciously clustered microcalcifications are seen in the left breast. Further imaging evaluation of the area of palpable concern was performed with ultrasound as detailed below. Left breast ultrasound: Targeted scanning performed at the site of palpable concern in the left upper breast reveals no abscess or other abnormality. IMPRESSION: No mammographic or targeted sonographic evidence of malignancy or other significant abnormality. Markings on images: BB's = Nipples; skin lesions Open blackfeet = Palpable Line = Scar US BREAST LIMITED LEFT: JULY 20, 2019 - 2D digital mammography and tomosynthesis imaging were performed and reviewed with CAD. ASSESSMENT: Category 1 Negative (Overall) RECOMMENDATION: Routine screening mammogram of both breasts. . Report Dictated on --- Final --- Signed Date and Time: 07/20/2019 10:13 am Signed by: MD KALINA, LINETTE Vincent [place], [place] US BREAST LIMITED LEFTon Patient Name: MELISSA NICHOLS ---Ultrasound--- Exam Date/Time 07/20/2019 10:12:30 EDT Exam US Breast Limited Left Ordering Physician MD CLAYTON, DEMETRI Reeves Accession Number [id number] CPT4 Codes 08063 () Reason For Exam Cellulitis of left breast (N61.0 [ICD-10-CM]) Report TIME SINCE LAST MAMMOGRAM: Last mammogram was performed 7 months ago. REASON FOR EXAM: clinical finding. INDICATED PROBLEM: Indicated problem(s): left breast skin changes to breast Left breast other indicated problem, cellulitis. PROCEDURE: MG BREAST TOMOSYNTHESIS LEFT: JULY 20, 2019 - 2D/3D Procedure 3D CC and MLO view(s) were taken of the left breast. 2D CC and MLO view(s) were taken of the left breast. Prior study comparison: December 14, 2015, bilateral screening 3D/tomosynthesis performed at [facility]. December 06, 2014, bilateral screening mammogram performed at [facility]. July 24, 2012, bilateral screening mammogram performed at [facility]. TISSUE DENSITY: The breast tissue is heterogeneously dense, which could obscure underlying abnormalities. . FINDINGS: Diagnostic imaging was performed for left breast cellulitis. The patient's redness and most other symptoms have resolved following antibiotic therapy, except a ridgelike area of tissue laterally which reflects a change. Mammogram: No masses, architectural distortions, or suspiciously clustered microcalcifications are seen in the left breast. Further imaging evaluation of the area of palpable concern was performed with ultrasound as detailed below. Left breast ultrasound: Targeted scanning performed at the site of palpable concern in the left upper breast reveals no abscess or other abnormality. IMPRESSION: No mammographic or targeted sonographic evidence of malignancy or other significant abnormality. Markings on images: BB's = Nipples; skin lesions Open blackfeet = Palpable Line = Scar US BREAST LIMITED LEFT: JULY 20, 2019 - 2D digital mammography and tomosynthesis imaging were performed and reviewed with CAD. ASSESSMENT: Category 1 Negative (Overall) RECOMMENDATION: Routine screening mammogram of both breasts. . Report Dictated on --- Final --- Signed Date and Time: 07/20/2019 10:13 am Signed by: MD KALINA, [facility], [place] Cuate, [facility] Incoming Radiology Results From [facility] - 07/20/2019 11:33 AM EDT Patient Name: MELISSA NICHOLS ---Ultrasound--- Exam Date/Time 07/20/2019 10:12:30 EDT Exam US Breast Limited Left Ordering Physician MD CLAYTON, DEMETRI Reeves Accession Number [id number] CPT4 Codes 00351 () Reason For Exam Cellulitis of left breast (N61.0 [ICD-10-CM]) Report TIME SINCE LAST MAMMOGRAM: Last mammogram was performed 7 months ago. REASON FOR EXAM: clinical finding. INDICATED PROBLEM: Indicated problem(s): left breast skin changes to breast Left breast other indicated problem, cellulitis. PROCEDURE: MG BREAST TOMOSYNTHESIS LEFT: JULY 20, 2019 - 2D/3D Procedure 3D CC and MLO view(s) were taken of the left breast. 2D CC and MLO view(s) were taken of the left breast. Prior study comparison: December 14, 2015, bilateral screening 3D/tomosynthesis performed at [facility]. December 06, 2014, bilateral screening mammogram performed at [facility]. July 24, 2012, bilateral screening mammogram performed at [facility]. TISSUE DENSITY: The breast tissue is heterogeneously dense, which could obscure underlying abnormalities. . FINDINGS: Diagnostic imaging was performed for left breast cellulitis. The patient's redness and most other symptoms have resolved following antibiotic therapy, except a ridgelike area of tissue laterally which reflects a change. Mammogram: No masses, architectural distortions, or suspiciously clustered microcalcifications are seen in the left breast. Further imaging evaluation of the area of palpable concern was performed with ultrasound as detailed below. Left breast ultrasound: Targeted scanning performed at the site of palpable concern in the left upper breast reveals no abscess or other abnormality. IMPRESSION: No mammographic or targeted sonographic evidence of malignancy or other significant abnormality. Markings on images: BB's = Nipples; skin lesions Open blackfeet = Palpable Line = Scar US BREAST LIMITED LEFT: JULY 20, 2019 - 2D digital mammography and tomosynthesis imaging were performed and reviewed with CAD. ASSESSMENT: Category 1 Negative (Overall) RECOMMENDATION: Routine screening mammogram of both breasts. . Report Dictated on --- Final --- Signed Date and Time: 07/20/2019 10:13 am Signed by: MD KALINA, [place], [place] Vital Signs Date Time Vital Sign Value Performing Clinician Facility 10-20-2024 09:34-0400 Body height 154.9 cm Maranda Paci 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.REPORT CLERK Work Phone: [facility] 10-20-2024 09:34-0400 Body mass index (BMI) [Ratio] 30.23 kg/m2 Maranda Paci 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.REPORT CLERK Work Phone: [facility] 10-20-2024 09:34-0400 Body weight 72.58 kg Maranda Paci 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.[facility] Work Phone: [facility] 10-20-2024 08:41-0400 Body height 154.[address] Work Phone: [facility] 10-20-2024 08:41-0400 Body mass index (BMI) [Ratio] 30.23 kg/m2 Trey Ceron RD Work Phone: [facility] 10-20-2024 08:41-0400 Body weight 72.[address] Work Phone: [facility] Comment on above: patient stated 09-09-2024 09:34-0400 Body mass index (BMI) [Ratio] 31.37 kg/m2 Adali Oliveros PSYD Work Phone: [facility] 09-09-2024 09:34-0400 Body weight 75.3 kg Adali HSUYD Work Phone: [facility] 08-27-2024 09:06-0400 Body height 154.9 cm Maranda Paci 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.REPORT CLERK Work Phone: [facility] 08-27-2024 09:06-0400 Body mass index (BMI) [Ratio] 31.93 kg/m2 Maranda Paci 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.REPORT CLERK Work Phone: [facility] 08-27-2024 09:06-0400 Body weight 76.66 kg Maranda Paci 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.REPORT CLERK Work Phone: [facility] 08-04-2024 08:49-0400 Body height 154.[address] Work Phone: [facility] 08-04-2024 08:49-0400 Body mass index (BMI) [Ratio] 33.44 kg/m2 Angie Roth RD Work Phone: [facility] 08-04-2024 08:49-0400 Body weight 80.[address] Work Phone: [facility] Comment on above: patient stated 07-28-2024 16:40-0400 Diastolic blood pressure 71 mm[Hg] Micheal Thomas MD Work Phone: [facility] 07-28-2024 16:40-0400 Heart rate 60 /min Micheal Thomas MD Work Phone: [facility] 07-28-2024 16:40-0400 Respiratory rate 16 /min Micheal Thomas MD Work Phone: [facility] 07-28-2024 16:40-0400 SaO2% (BldA) [Mass fraction] 98 % Micheal Thomas MD Work Phone: [facility] 07-28-2024 16:40-0400 Systolic blood pressure 119 mm[Hg] Micheal Thomas MD Work Phone: [facility] 07-28-2024 14:45-0400 Body temperature 97.3 [degF] Micheal Thomas MD Work Phone: [facility] 07-28-2024 11:10-0400 Body height 158.8 cm Micheal Thomas MD Work Phone: [facility] 07-28-2024 11:10-0400 Body mass index (BMI) [Ratio] 33.49 kg/m2 Micheal Thomas MD Work Phone: [facility] 07-28-2024 11:10-0400 Body weight 84.4 kg Micheal Thomas MD Work Phone: [facility] 07-16-2024 14:25-0500 Body height 154.[address] Work Phone: [facility] 07-16-2024 14:25-0500 Body mass index (BMI) [Ratio] 34.58 kg/m2 Angie Roth RD Work Phone: [facility] 07-16-2024 14:25-0500 Body weight 83.[address] Work Phone: [facility] 07-14-2024 08:55-0500 Body height 154.9 cm Maranda Paci 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.REPORT CLERK Work Phone: [facility] 07-14-2024 08:55-0500 Body mass index (BMI) [Ratio] 34.58 kg/m2 Maranda Paci 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.REPORT CLERK Work Phone: [facility] 07-14-2024 08:55-0500 Body temperature 96.8 [degF] Maranda Paci 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.REPORT CLERK Work Phone: [facility] 07-14-2024 08:55-0500 Body weight 83.01 kg Maranda Paci 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.REPORT CLERK Work Phone: [facility] 07-14-2024 08:55-0500 Diastolic blood pressure 80 mm[Hg] Maranda Paci 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.REPORT CLERK Work Phone: [facility] 07-14-2024 08:55-0500 Heart rate 72 /min Maranda Paci 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.REPORT CLERK Work Phone: [facility] 07-14-2024 08:55-0500 SaO2% (BldA) [Mass fraction] 100 % Maranda Paci 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.REPORT CLERK Work Phone: [facility] 07-14-2024 08:55-0500 Systolic blood pressure 124 mm[Hg] Maranda Paci 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.REPORT CLERK Work Phone: [facility] 06-11-2024 13:09-0500 Body height 154.9 cm Demetri Arnold MD Work Phone: [facility] 06-11-2024 13:09-0500 Body mass index (BMI) [Ratio] 35.33 kg/m2 Demetri Arnold MD Work Phone: [facility] 06-11-2024 13:09-0500 Body temperature 97.2 [degF] Demetri Arnold MD Work Phone: [facility] [email or web address] 06-11-2024 13:09-0500 Body weight 84.82 kg Demetri Arnold MD Work Phone: [facility] 06-11-2024 13:09-0500 Diastolic blood pressure 75 mm[Hg] Demetri Arnold MD Work Phone: [facility] [employer] 06-11-2024 13:09-0500 Heart rate 73 /min Demetri Arnold MD Work Phone: [facility] [employer] 06-11-2024 13:09-0500 SaO2% (BldA) [Mass fraction] 98 % Demetri Arnold MD Work Phone: [facility] [employer] 06-11-2024 13:09-0500 Systolic blood pressure 113 mm[Hg] Demetri Arnold MD Work Phone: [facility] [email or web address] 05-11-2024 16:07-0500 Body height 155.5 cm Maranda Paci 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.REPORT CLERK Work Phone: [facility] 05-11-2024 16:07-0500 Body mass index (BMI) [Ratio] 33.39 kg/m2 Maranda Paci 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.REPORT CLERK Work Phone: [facility] 05-11-2024 16:07-0500 Body weight 80.74 kg Maranda Paci 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.REPORT CLERK Work Phone: [facility] 04-22-2024 08:48-0500 Body height 155.[address] Work Phone: [facility] 04-22-2024 08:48-0500 Body mass index (BMI) [Ratio] 33.39 kg/m2 Angie Jesus RD Work Phone: [facility] 04-22-2024 08:48-0500 Body weight 80.[address] Work Phone: [facility] Comment on above: patient stated 04-21-2024 09:21-0500 Body mass index (BMI) [Ratio] 33.38 kg/m2 Adalilizzie Hailemark PSYD Work Phone: [facility] 04-21-2024 09:21-0500 Body weight 80.74 kg Adali Hailepriscillaf PSYD Work Phone: [facility] 01-22-2024 11:41-0400 Body height 155.[address] Work Phone: [facility] 01-22-2024 11:41-0400 Body mass index (BMI) [Ratio] 34.69 kg/m2 Angie Jesus RD Work Phone: [facility] 01-22-2024 11:41-0400 Body weight 83.[address] Work Phone: [facility] Comment on above: patient stated 12-16-2023 08:54-0400 Body height 155.5 cm Ana M Sotelo 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.REPORT CLERK Work Phone: [facility] 12-16-2023 08:54-0400 Body mass index (BMI) [Ratio] 36.98 kg/m2 Ana M Peyton 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.REPORT CLERK Work Phone: [facility] 12-16-2023 08:54-0400 Body weight 89.45 kg Ana M Linch 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.REPORT CLERK Work Phone: [facility] 12-16-2023 08:54-0400 Diastolic blood pressure 62 mm[Hg] Ana M Linch 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.REPORT CLERK Work Phone: [facility] 12-16-2023 08:54-0400 Systolic blood pressure 110 mm[Hg] Ana M Peyton 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.REPORT CLERK Work Phone: [facility] 12-09-2023 11:37-0400 Body height 157.[address] Work Phone: [facility] 12-09-2023 11:37-0400 Body mass index (BMI) [Ratio] 35.61 kg/m2 Angie Roth RD Work Phone: [facility] 12-09-2023 11:37-0400 Body weight 88.[address] Work Phone: [facility] Comment on above: patient stated 11-27-2023 11:29-0400 Body height 157.6 cm Maranda Paci 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.REPORT CLERK Work Phone: [facility] 11-27-2023 11:29-0400 Body mass index (BMI) [Ratio] 36.52 kg/m2 Maranda Paci 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.REPORT CLERK Work Phone: [facility] 11-27-2023 11:29-0400 Body weight 90.72 kg Maranda Paci 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.REPORT CLERK Work Phone: [facility] 11-06-2023 11:34-0400 Body height 157.[address] Work Phone: [facility] 11-06-2023 11:34-0400 Body mass index (BMI) [Ratio] 38.17 kg/m2 Angie Roth RD Work Phone: [facility] 11-06-2023 11:34-0400 Body weight 94.8 kg Angie Roth MARGARETH Work Phone: [facility] Comment on above: patient stated 11-06-2023 08:06-0400 Body height 158.8 cm Adali Domo CRAWFORD Work Phone: [facility] 11-06-2023 08:06-0400 Body mass index (BMI) [Ratio] 37.62 kg/m2 Adali Domo CRAWFORD Work Phone: [facility] 11-06-2023 08:06-0400 Body weight 94.8 kg Adali Domo CRAWFORD Work Phone: [facility] 10-30-2023 12:00-0400 Diastolic blood pressure 67 mm[Hg] Micheal Thomas MD Work Phone: [facility] 10-30-2023 12:00-0400 Heart rate 64 /min Micheal Thomas MD Work Phone: [facility] 10-30-2023 12:00-0400 SaO2% (BldA) [Mass fraction] 98 % Micheal Thomas MD Work Phone: [facility] 10-30-2023 12:00-0400 Systolic blood pressure 112 mm[Hg] Micheal Thomas MD Work Phone: [facility] 10-30-2023 10:08-0400 Body temperature 96.8 [degF] Micheal Thomas MD Work Phone: [facility] 10-30-2023 10:08-0400 Respiratory rate 16 /min Micheal Thomas MD Work Phone: [facility] 10-30-2023 08:56-0400 Body height 158.8 cm Micheal Thomas MD Work Phone: [facility] 10-30-2023 08:56-0400 Body mass index (BMI) [Ratio] 38.88 kg/m2 Micheal Thomas MD Work Phone: [facility] 10-30-2023 08:56-0400 Body weight 97.98 kg Micheal Thomas MD Work Phone: [facility] 10-16-2023 09:44-0400 Body height 157.[address] Work Phone: [facility] 10-16-2023 09:44-0400 Body mass index (BMI) [Ratio] 39.99 kg/m2 Angie Jesus RD Work Phone: [facility] 10-16-2023 09:44-0400 Body weight 99.[address] Work Phone: [facility] 10-16-2023 08:46-0400 Body height 157.6 cm Maranda Paci 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.REPORT CLERK Work Phone: [facility] 10-16-2023 08:46-0400 Body mass index (BMI) [Ratio] 39.99 kg/m2 Maranda Paci 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.REPORT CLERK Work Phone: [facility] 10-16-2023 08:46-0400 Body temperature 98.01 [degF] Maranda Paci 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.REPORT CLERK Work Phone: [facility] 10-16-2023 08:46-0400 Body weight 99.34 kg Maranda Paci 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.REPORT CLERK Work Phone: [facility] 10-16-2023 08:46-0400 Diastolic blood pressure 72 mm[Hg] Maranda Paci 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.REPORT CLERK Work Phone: [facility] 10-16-2023 08:46-0400 Heart rate 74 /min Maranda Paci 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.REPORT CLERK Work Phone: [facility] 10-16-2023 08:46-0400 SaO2% (BldA) [Mass fraction] 100 % Maranda Paci 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.REPORT CLERK Work Phone: [facility] 10-16-2023 08:46-0400 Systolic blood pressure 126 mm[Hg] Maranda Paci 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.REPORT CLERK Work Phone: [facility] 07-18-2023 17:49-0500 Body height 154.9 cm Maranda Paci 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.REPORT CLERK Work Phone: [facility] 07-18-2023 17:49-0500 Body weight 98.43 kg Maranda Paci 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.REPORT CLERK Work Phone: [facility] 05-21-2023 10:07-0500 Body height 157.5 cm Manish Vazquez MD Work Phone: [facility] 05-21-2023 10:07-0500 Body mass index (BMI) [Ratio] 40.24 kg/m2 Manish Vazquez MD Work Phone: [facility] 05-21-2023 10:07-0500 Body temperature 97.9 [degF] Manish Vazquez MD Work Phone: [facility] 05-21-2023 10:07-0500 Body weight 99.79 kg Manish Vazquez MD Work Phone: [facility] 05-21-2023 10:07-0500 Diastolic blood pressure 83 mm[Hg] Manish Vazquez MD Work Phone: [facility] 05-21-2023 10:07-0500 Heart rate 73 /min Manish Vazquez MD Work Phone: [facility] 05-21-2023 10:07-0500 SaO2% (BldA) [Mass fraction] 98 % Manish Vazquez MD Work Phone: [facility] 05-21-2023 10:07-0500 Systolic blood pressure 125 mm[Hg] Manish Vazquez MD Work Phone: [facility] 04-18-2023 14:08-0500 Body height 154.9 cm Maranda Paci 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.REPORT CLERK Work Phone: [facility] 04-18-2023 14:08-0500 Body weight 96.62 kg Maranda Paci 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.REPORT CLERK Work Phone: [facility] 03-27-2023 14:31-0500 Body height 154.[address] Work Phone: [facility] 03-27-2023 14:31-0500 Body weight 97.[address] Work Phone: [facility] 02-20-2023 13:07-0400 Body height 157.5 cm Maranda Paci 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.REPORT CLERK Work Phone: [facility] 02-20-2023 13:07-0400 Body weight 97.98 kg Maranda Paci 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.REPORT CLERK Work Phone: [facility] 12-26-2022 13:06-0400 Body height 157.5 cm Maranda Paci 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.REPORT CLERK Work Phone: [facility] 12-26-2022 13:06-0400 Body weight 103.87 kg Maranda Paci 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.REPORT CLERK Work Phone: [facility] 12-10-2022 15:19-0400 Body height 157.5 cm Fatuma Romel PA-C Work Phone: [facility] 12-10-2022 15:19-0400 Body temperature 97.81 [degF] Fatuma Romel PA-C Work Phone: [facility] 12-10-2022 15:190400 Body weight 107.05 kg Fatuma Romel PA-C Work Phone: [facility] 12-10-2022 15:19-0400 Diastolic blood pressure 78 mm[Hg] Fatuma Romel PA-C Work Phone: [facility] 12-10-2022 15:190400 Heart rate 106 /min Fatuma Lockhart PA-C Work Phone: [facility] 12-10-2022 15:19-0400 SaO2% (BldA) [Mass fraction] 98 % Fatuma Lockhart PA-C Work Phone: [facility] 12-10-2022 15:19-0400 Systolic blood pressure 112 mm[Hg] Fatuma Urena PA-C Work Phone: [facility] 12-09-2022 07:56-0400 Body height 156.8 cm Ana M Peyton 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.REPORT CLERK Work Phone: [facility] 12-09-2022 07:56-0400 Body weight 105.69 kg Ana M Linch 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.REPORT CLERK Work Phone: [facility] 12-09-2022 07:56-0400 Diastolic blood pressure 76 mm[Hg] Ana M Linch 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.REPORT CLERK Work Phone: [facility] 12-09-2022 07:56-0400 Systolic blood pressure 116 mm[Hg] Ana M Linch 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.REPORT CLERK Work Phone: [facility] 08-08-2022 15:21-0400 Body height 157.5 cm Maranda Paci 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.REPORT CLERK Work Phone: [facility] 08-08-2022 15:21-0400 Body weight 106.14 kg Maranda Paci 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.REPORT CLERK Work Phone: [facility] 07-05-2022 12:10-0500 Diastolic blood pressure 71 mm[Hg] Micheal Thomas MD Work Phone: [facility] [facility] 07-05-2022 12:10-0500 Heart rate 61 /min Micheal Thomas MD Work Phone: [facility] 07-05-2022 12:10-0500 Respiratory rate 16 /min Michael Thomas MD Work Phone: [facility] 07-05-2022 12:10-0500 SaO2% (BldA) [Mass fraction] 100 % Micheal Thomas MD Work Phone: [facility] 07-05-2022 12:10-0500 Systolic blood pressure 108 mm[Hg] Micheal Thomas MD Work Phone: [facility] 07-05-2022 11:29-0500 Body temperature 96.8 [degF] Micheal Thomas MD Work Phone: [facility] 07-05-2022 10:05-0500 Body height 157.5 cm Micheal Thomas MD Work Phone: [facility] 07-05-2022 10:05-0500 Body weight 106.14 kg Micheal Thomas MD Work Phone: [facility] 07-04-2022 13:42-0500 Body height 157.5 cm Manish Vazquez MD Work Phone: [facility] 07-04-2022 13:42-0500 Body mass index (BMI) [Ratio] 42.8 kg/m2 Manish Vazquez MD Work Phone: [facility] 07-04-2022 13:42-0500 Body temperature 98.1 [degF] Manish Vazquez MD Work Phone: [facility] 07-04-2022 13:42-0500 Body weight 106.14 kg Manish Vazquez MD Work Phone: [facility] 07-04-2022 13:42-0500 Diastolic blood pressure 84 mm[Hg] Manish Vazquez MD Work Phone: [facility] 07-04-2022 13:42-0500 Heart rate 73 /min Manish Vazquez MD Work Phone: [facility] 07-04-2022 13:42-0500 SaO2% (BldA) [Mass fraction] 99 % Manish Vazquez MD Work Phone: [facility] [email or web address] 07-04-2022 13:42-0500 Systolic blood pressure 129 mm[Hg] Manish Vazquez MD Work Phone: [facility] 05-14-2022 07:45-0500 Body height 157.5 cm Demetri Arnold MD Work Phone: [facility] 05-14-2022 07:45-0500 Body mass index (BMI) [Ratio] 42.43 kg/m2 Demetri Arnold MD Work Phone: [facility] 05-14-2022 07:45-0500 Body temperature 97 [degF] Demetri Arnold MD Work Phone: [facility] 05-14-2022 07:45-0500 Body weight 105.23 kg Demetri Arnold MD Work Phone: [facility] 05-14-2022 07:45-0500 Diastolic blood pressure 85 mm[Hg] Demetri Arnold MD Work Phone: [facility] 05-14-2022 07:45-0500 Heart rate 75 /min Demetri Arnold MD Work Phone: [facility] 05-14-2022 07:45-0500 SaO2% (BldA) [Mass fraction] 100 % Demetri Arnold MD Work Phone: [facility] 05-14-2022 07:45-0500 Systolic blood pressure 120 mm[Hg] Demetri Arnold MD Work Phone: [facility] 03-06-2022 13:03-0400 Body height 157.5 cm Maranda Paci 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.REPORT CLERK Work Phone: [facility] 03-06-2022 13:03-0400 Body weight 104.78 kg Maranda Paci 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.REPORT CLERK Work Phone: [facility] 02-25-2022 11:02-0400 Body height 157.[address] Work Phone: [facility] 02-25-2022 11:02-0400 Body weight 106.[address] Work Phone: [facility] 02-15-2022 16:12-0400 Body weight 106.59 kg Parveen Tobias 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.REPORT CLERK Work Phone: [facility] 12-07-2021 13:54-0400 Body weight 107.96 kg Joana Carrera 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.REPORT CLERK Work Phone: [facility] 12-07-2021 13:54-0400 Diastolic blood pressure 80 mm[Hg] Joana Carrera 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.REPORT CLERK Work Phone: [facility] 12-07-2021 13:54-0400 Systolic blood pressure 118 mm[Hg] Joana Carrera 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.REPORT CLERK Work Phone: [facility] 12-06-2021 07:54-0400 Body height 157.5 cm Ana M Linch 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.REPORT CLERK Work Phone: [facility] 12-06-2021 07:54-0400 Body weight 108.41 kg Ana M Linch 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.REPORT CLERK Work Phone: [facility] 12-06-2021 07:54-0400 Diastolic blood pressure 76 mm[Hg] Ana M Peyton 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.REPORT CLERK Work Phone: [facility] 12-06-2021 07:54-0400 Systolic blood pressure 120 mm[Hg] Ana M Linch 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.REPORT CLERK Work Phone: [facility] 06-26-2021 14:14-0500 Body height 157.5 cm Lurdes Agustin MD Work Phone: [facility] 06-26-2021 14:14-0500 Body mass index (BMI) [Ratio] 39.32 kg/m2 Lurdes Agustin MD Work Phone: [facility] 06-26-2021 14:14-0500 Body temperature 98.2 [degF] Lurdes Agustin MD Work Phone: [facility] 06-26-2021 14:14-0500 Body weight 97.52 kg Lurdes Agustin MD Work Phone: [facility] 06-26-2021 14:14-0500 Diastolic blood pressure 77 mm[Hg] Lurdes Agustin MD Work Phone: [facility] 06-26-2021 14:14-0500 Heart rate 78 /min Lurdes Agustin MD Work Phone: [facility] 06-26-2021 14:14-0500 Respiratory rate 16 /min Lurdes Agustin MD Work Phone: [facility] 06-26-2021 14:14-0500 SaO2% (BldA) [Mass fraction] 97 % Lurdes Agustin MD Work Phone: [facility] 06-26-2021 14:14-0500 Systolic blood pressure 114 mm[Hg] Lurdes Agustin MD Work Phone: [facility] 02-13-2021 12:21-0400 Body temperature 97.88 [degF] No Pcp Required [facility] 02-13-2021 12:21-0400 Diastolic blood pressure 79 mm[Hg] No Pcp Required [facility] 02-13-2021 12:21-0400 Heart rate 67 /min No Pcp Required [facility] 02-13-2021 12:21-0400 Respiratory rate 18 /min No Pcp Required [facility] 02-13-2021 12:21-0400 SaO2% (BldA) [Mass fraction] 99 % No Pcp Required [facility] 02-13-2021 12:21-0400 Systolic blood pressure 119 mm[Hg] No Pcp Required [facility] Encounters Encounter Date Encounter Type Care Provider Facility Start: 01-07-2025 ambulatory Demetri Arnold Facility :[facility] Start: 12-27-2024 End: 12-27-2024 Telephone encounter Ana M Sotelo APRN.CNP Work Phone: OB/Gynecology Comment on above: Screening mammogram Start: 12-17-2024 End: 12-17-2024 ambulatory DEMETRI ARNOLD Facility:[facility] Start: 12-17-2024 Encounter for gynecological examination (general) (routine) without abnormal findings ANA M SOTELO [facility] Start: 11-08-2024 End: 11-08-2024 ambulatory DEMETRI ARNOLD [facility] Start: 11-08-2024 End: 11-08-2024 Encounter for general adult medical examination without abnormal findings PROVIDER NOT IN SYSTEM [facility] Start: 10-26-2024 End: 10-26-2024 ambulatory MARANDA CASTRO Facility:[facility] Start: 10-20-2024 End: 10-20-2024 Admission to same day surgery center Maranda Magen Castro 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.REPORT CLERK Work Phone: Gastroenterology Comment on above: Complications of gas tric bypass surgery (Primary Dx); History of gastric bypass; Weight gain following gastric bypass surgery; Encounter for weight management; Class 1 obesity due to excess calories with serious comorbidity and body mass index (BMI) of 30.0 to 30.9 in adult Start: 10-20-2024 End: 10-20-2024 Telemedicine consultation with patient Trey Ceron MARGARETH Work Phone: Gastroenterology Start: 10-20-2024 End: 10-20-[address] Work Phone: Gastroenterology Comment on above: Class 1 obesity due to excess calories with body mass index (BMI) of 30.0 to 30.9 in adult, unspecified whether serious comorbidity present (Primary Dx); Dietary counseling and surveillance Start: 09-09-2024 End: 09-09-2024 Telemedicine consultation with patient Adali Oliveros PSYD Work Phone: Psychology Start: 09-09-2024 End: 09-09-2024 ambulatory Adali Oliveros ARACELISPAUL Work Phone: Psychology Comment on above: Psychological factor s affecting medical condition (Primary Dx); Class 1 obesity with body mass index (BMI) of 31.0 to 31.9 in adult, unspecified obesity type, unspecified whether serious comorbidity present Start: 09-06-2024 End: 09-06-2024 ambulatory DEMETRI ARNOLD Facility:[facility] Start: 08-27-2024 End: 08-27-2024 Admission to same day surgery center Maranda Castro 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.REPORT CLERK Work Phone: Gastroenterology Comment on above: Complications of gas tric bypass surgery (Primary Dx); History of gastric bypass; Weight gain following gastric bypass surgery; Encounter for weight management; Class 1 obesity due to excess calories with serious comorbidity and body mass index (BMI) of 31.0 to 31.9 in adult Start: 08-27-2024 End: 08-27-2024 Telemedicine consultation with patient Maranda Castro 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.REPORT CLERK Work Phone: Gastroenterology Start: 08-27-2024 End: 08-27-2024 ambulatory [facility] Facility:[facility] Start: 08-04-2024 End: 08-04-2024 Admission to same day surgery center Angie Jesus ZULUAGA Work Phone: Gastroenterology Comment on above: S/P bariatric surger y (Primary Dx); Impaired intestinal absorption; Class 1 obesity due to excess calories with body mass index (BMI) of 33.0 to 33.9 in adult, unspecified whether serious comorbidity present; Dietary counseling and surveillance Start: 08-04-2024 End: 08-04-2024 [facility] Facility:[facility] Start: 08-04-2024 End: 08-04-2024 Telemedicine consultation with patient Angie Garciapurvi ZULUAGA Work Phone: Gastroenterology Start: 08-02-2024 End: 08-03-2024 Refill Brandy Rodney DO Work Phone: [facility] Comment on above: Acquired hypothyroid ism Start: 07-30-2024 End: 07-30-2024 Telephone encounter Micheal Thomas MD Work Phone: Gastroenterology Comment on above: Patient Update Start: 07-28-2024 End: 07-29-2024 ambulatory [facility] Facility:[facility] Start: 07-28-2024 End: 07-28-2024 ambulatory MARANDA D PACI Facility:[facility] Start: 07-28-2024 End: 07-28-2024 Subsequent hospital visit by physician Micheal Thomas MD Work Phone: Gastroenterology Comment on above: Complications of gas tric bypass surgery [K91.89, Y83.2] Start: 07-21-2024 End: 07-21-2024 ambulatory Chava Li RNresidential program manager Start: 07-20-2024 End: 07-20-2024 Telephone encounter Gayle Leal RNresidential program manager Comment on above: Medication Authoriza tion Start: 07-15-2024 End: 07-15-2024 ambulatory Adali Oliveros PSYD Work Phone: Psychology Comment on above: Psychological factor s affecting medical condition (Primary Dx); Class 1 obesity due to excess calories with body mass index (BMI) of 34.0 to 34.9 in adult, unspecified whether serious comorbidity present Start: 07-15-2024 End: 07-15-2024 Telemedicine consultation with patient Adali Oliveros PSYD Work Phone: Psychology Start: 07-14-2024 End: 07-16-2024 Refill Maranda Olivoi 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.REPORT CLERK Work Phone: Gastroenterology Comment on above: Med Change Request Start: 07-14-2024 End: 07-14-2024 Patient encounter procedure Hepatology Procedures A5 Work Phone: Gastroenterology Comment on above: Complications of gas tric bypass surgery (Primary Dx); History of gastric bypass; Weight gain following gastric bypass surgery; Encounter for weight management; Class 2 severe obesity due to excess calories with serious comorbidity and body mass index (BMI) of 35.0 to 35.9 in adult (HCC) Start: 07-14-2024 End: 07-14-[address] Work Phone: Gastroenterology Comment on above: Arrived Patient Education; R eassessment Start: 06-14-2024 End: 06-14-2024 Orders Only Maranda Olivoi 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.REPORT CLERK Work Phone: Gastroenterology Comment on above: Complications of gas tric bypass surgery (Primary Dx); History of gastric bypass; Hepatic steatosis; Class 1 obesity due to excess calories with body mass index (BMI) of 33.0 to 33.9 in adult, unspecified whether serious comorbidity present; Impaired intestinal absorption Start: 06-11-2024 End: 06-11-2024 Telephone encounter Gayle Leal RNresidential program manager Start: 06-11-2024 End: 06-11-2024 Patient encounter status Demetri Arnold MD Work Phone: [facility] Work Phone: Start: 06-11-2024 End: 06-11-2024 Periodic preventive med est patient 40-64yrs Demetri Arnold MD Work Phone: [facility] Comment on above: Elevated ferritin (P rimary Dx); Well adult exam; Acquired hypothyroidism; Undifferentiated connective tissue disease (HCC) Start: 06-11-2024 End: 06-11-2024 ambulatory DEMETRI [facility] Start: 06-11-2024 End: 06-11-2024 Encounter for general adult medical examination without abnormal findings [facility] Start: 06-08-2024 End: 06-10-2024 ambulatory Maranda Us Paci 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.REPORT CLERK Work Phone: Gastroenterology Start: 06-08-2024 End: 06-10-2024 Follow-up encounter Maranda Us Paci 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.REPORT CLERK Work Phone: Gastroenterology Comment on above: Follow up from [facility] 05/11 Start: 06-04-2024 End: 06-04-2024 Refill Manish Vazquez MD Work Phone: [facility] Comment on above: Vitamin D deficiency Start: 05-11-2024 End: 05-11-2024 Admission to same day surgery center Maranda D Paci 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.REPORT CLERK Work Phone: Gastroenterology Comment on above: Complications of gas tric bypass surgery (Primary Dx); History of gastric bypass; Weight gain following gastric bypass surgery; Encounter for weight management; Hepatic steatosis; Class 1 obesity due to excess calories with serious comorbidity and body mass index (BMI) of 33.0 to 33.9 in adult Start: 05-11-2024 End: 05-11-2024 ambulatory MARANDA D PACI Facility:[facility] Start: 05-11-2024 End: 05-11-2024 Telemedicine consultation with patient Maranda Us Paci 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.REPORT CLERK Work Phone: Gastroenterology Start: 04-29-2024 End: 04-29-2024 Refill Demetri Arnold MD Work Phone: [facility] Comment on above: Acquired hypothyroid ism Start: 04-23-2024 End: 04-23-2024 ambulatory BECCA JULIO CÉSAR [facility] Facility:[facility] Start: 04-22-2024 End: 04-22-2024 Admission to same day surgery center Angie Roth RD Work Phone: Gastroenterology Comment on above: S/P bariatric surger y (Primary Dx); Impaired intestinal absorption; Class 1 obesity due to excess calories with body mass index (BMI) of 33.0 to 33.9 in adult, unspecified whether serious comorbidity present; Dietary counseling and surveillance Start: 04-22-2024 End: 04-22-2024 ambulatory DEMETRI ARNOLD Facility:[facility] Start: 04-22-2024 End: 04-22-2024 Telemedicine consultation with patient Angie Roth RD Work Phone: Gastroenterology Start: 04-21-2024 End: 04-21-2024 ambulatory Adali Oliveros PSYD Work Phone: Psychology Comment on above: Psychological factor s affecting medical condition (Primary Dx); Class 1 obesity with body mass index (BMI) of 33.0 to 33.9 in adult, unspecified obesity type, unspecified whether serious comorbidity present Start: 04-21-2024 End: 04-21-2024 Telemedicine consultation with patient Adali Oliveros TY Work Phone: Psychology Start: 04-06-2024 End: 04-16-2024 Refill Maranda Castro APRN.CNP Work Phone: Gastroenterology Comment on above: Refill Request Start: 02-09-2024 End: 03-10-2024 Telephone encounter Demetri Arnold MD Work Phone: [facility] Comment on above: Med Refill Start: 01-30-2024 End: 01-30-2024 ambulatory Adali Oliveros PSYD Work Phone: Psychology Comment on above: Psychological factor s affecting medical condition (Primary Dx); Class 1 obesity due to excess calories with body mass index (BMI) of 34.0 to 34.9 in adult, unspecified whether serious comorbidity present Start: 01-30-2024 End: 01-30-2024 Telemedicine consultation with patient Adali Oliveros PSYD Work Phone: Psychology Start: 01-22-2024 End: 01-22-2024 Admission to same day surgery center Angie Garciapurvi ZULUAGA Work Phone: Gastroenterology Comment on above: S/P bariatric surger y (Primary Dx); Impaired intestinal absorption; Class 1 obesity due to excess calories with body mass index (BMI) of 34.0 to 34.9 in adult, unspecified whether serious comorbidity present; Dietary counseling and surveillance Bariatric surgery [facility] (Primary Dx); Steatosis (HCC); Complications of bariatric procedures; Class 2 obesity due to excess calories with body mass index (BMI) of 38.0 to 38.9 in adult, unspecified whether serious comorbidity present Start: 01-22-2024 End: 01-22-2024 ambulatory Micheal THOMAS Facility:[facility] Start: 01-22-2024 End: 01-22-2024 Telemedicine consultation with patient Angie Roth MARGARETH Work Phone: Gastroenterology Start: 01-07-2024 End: 01-07-2024 Refill Maranda Castro APRN.CNP Work Phone: Gastroenterology Comment on above: Refill Request Start: 12-18-2023 Telephone encounter Ana M sawyer APRN.WALKER Work Phone: OB/Gynecology Comment on above: Radiology Mammogram Start: 12-16-2023 End: 12-16-2023 Patient encounter procedure Ana M Sotelo APRN.WALKER Work Phone: OB/Gynecology Comment on above: Encounter for gyneco logical examination (general) (routine) without abnormal findings (Primary Dx); Encounter for screening mammogram for breast cancer Start: 12-16-2023 End: 12-16-2023 Patient encounter status Ana M Sotelo 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.WALKER Work Phone: [facility] Start: 12-09-2023 End: 12-09-2023 Admission to same day surgery center Angie Roth MARGARETH Work Phone: Gastroenterology Comment on above: S/P bariatric surger y (Primary Dx); Impaired intestinal absorption; Class 2 obesity due to excess calories with body mass index (BMI) of 35.0 to 35.9 in adult, unspecified whether serious comorbidity present; Dietary counseling and surveillance Start: 12-09-2023 End: 12-09-2023 Telemedicine consultation with patient Angie Roth RD Work Phone: Gastroenterology Start: 11-27-2023 End: 11-27-2023 Office outpatient visit 25 minutes Maranda D Paci 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.REPORT CLERK Work Phone: Gastroenterology Comment on above: Class 2 severe obesi ty due to excess calories with serious comorbidity and body mass index (BMI) of 36.0 to 36.9 in adult (HCC) (Primary Dx); Complications of gastric bypass surgery; History of gastric bypass; Weight gain following gastric bypass surgery; Hepatic steatosis; Encounter for weight management Start: 11-24-2023 Orders Only Maranda D Paci 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.REPORT CLERK Work Phone: Gastroenterology Start: 11-22-2023 ambulatory Maranda D Paci 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.REPORT CLERK Work Phone: Gastroenterology Comment on above: Sucralfate Start: 11-17-2023 End: 11-17-2023 ambulatory [facility] Start: 11-16-2023 Refill Maranda D Paci 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.REPORT CLERK Work Phone: Gastroenterology Comment on above: Med Change Request Start: 11-06-2023 End: 11-06-2023 Admission to same day surgery center Angie Roth MARGARETH Work Phone: Gastroenterology Comment on above: S/P bariatric surger y (Primary Dx); Impaired intestinal absorption; Class 2 obesity due to excess calories with body mass index (BMI) of 38.0 to 38.9 in adult, unspecified whether serious comorbidity present; BMI 38.0-38.9,adult; Dietary counseling and surveillance Start: 11-06-2023 End: 11-06-2023 ambulatory Adali Oliveros PSYD Work Phone: Psychology Comment on above: Psychological factor s affecting medical condition (Primary Dx); Class 2 obesity due to excess calories with body mass index (BMI) of 38.0 to 38.9 in adult, unspecified whether serious comorbidity present Start: 11-06-2023 End: 11-06-2023 Telemedicine consultation with patient Angie Roth MARGARETH Work Phone: Gastroenterology Start: 10-31-2023 Telephone encounter Maranda thompson 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.REPORT CLERK Work Phone: Gastroenterology Comment on above: Patient Update Start: 10-30-2023 End: 10-30-2023 Subsequent hospital visit by physician Micheal Thomas MD Work Phone: Gastroenterology Comment on above: Class 3 severe obesi ty due to excess calories with serious comorbidity and body mass index (BMI) of 40.0 to 44.9 in adult (HCC) [E66.01, Z68.41] Start: 10-23-2023 ambulatory Thea Paz RN Gastr oenterology Start: 10-22-2023 ambulatory Maranda Castro 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.REPORT CLERK Work Phone: Gastroenterology Comment on above: Sucralfate 100mg/ml Start: 10-16-2023 End: 10-16-[address] Work Phone: Gastroenterology Start: 10-16-2023 End: 10-16-2023 Nutrition therapy Angie Roth RD Work Phone: Gastroenterology Comment on above: Nutrition Assessment Start: 10-16-2023 End: 10-16-2023 ambulatory Hepatology A5 Work Phone: Gastroenterology Start: 10-16-2023 End: 10-16-2023 Patient encounter procedure Hepatology Procedures A5 Work Phone: Gastroenterology Comment on above: Complications of gas tric bypass surgery (Primary Dx); History of gastric bypass; Vitamin D deficiency; Hepatic steatosis; Weight gain following gastric bypass surgery; Encounter for weight management; Class 3 severe obesity due to excess calories without serious comorbidity with body mass index (BMI) of 40.0 to 44.9 in adult (HCC) Start: 10-16-2023 End: 10-16-2023 Patient encounter status Hepatology A5 Work Phone: [facility] Start: 09-25-2023 Telephone encounter Manish cho MD Work Phone: [facility] Comment on above: Med Refill Start: 08-27-2023 End: 08-27-2023 ambulatory MANISH VAZQUEZ [facility] Start: 08-13-2023 Admission to same da surgery center Maranda D Paci 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.REPORT CLERK Work Phone: Gastroenterology Comment on above: Complications of gas tric bypass surgery (Primary Dx); History of gastric bypass; Vitamin D deficiency; Body mass index 40.0-44.9, adult (HCC); Hepatic steatosis; Pre-op testing Start: 08-13-2023 Patient encounter status Maranda Us Pacpiyush 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.REPORT CLERK Work Phone: [facility] Start: 08-06-2023 ambulatory Maranda Magen Paci 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.REPORT CLERK Work Phone: Gastroenterology Comment on above: Scheduling procedure Start: 07-18-2023 End: 07-18-2023 Admission to same day surgery center Maranda Magen Paci 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.REPORT CLERK Work Phone: Gastroenterology Comment on above: Class 3 severe obesi ty due to excess calories with serious comorbidity and body mass index (BMI) of 40.0 to 44.9 in adult (HCC) (Primary Dx); Complications of gastric bypass surgery; History of gastric bypass; Weight gain following gastric bypass surgery; Encounter for weight management Start: 07-18-2023 End: 07-18-2023 Telemedicine consultation with patient Maranda Castro 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.REPORT CLERK Work Phone: [facility] Start: 05-21-2023 Orders Only Norma almanza MD Work Phone: [facility] Start: 05-21-2023 End: 05-21-2023 Periodic preventive med est patient 40-64yrs Manish Vazquez MD Work Phone: [facility] Comment on above: Physical exam (Prima ry Dx); Vitamin D deficiency; Morbidly obese (HCC); Acquired hypothyroidism; Acquired iron deficiency anemia due to decreased absorption Physical exam (Prima ry Dx); Vitamin D deficiency; Morbidly obese (HCC); Acquired hypothyroidism; Acquired iron deficiency anemia due to decreased absorption; Acute bilateral low back pain without sciatica Start: 05-21-2023 End: 05-21-2023 Physical examination Manish Vazquez MD Work Phone: [facility] [email or web address] Work Phone: Start: 05-20-2023 Patient encounter status Beryl Auguste MA [facility] Start: 05-20-2023 Refill Berly Molina MORLEY [facility] Comment on above: Vitamin D deficiency (Primary Dx); Well adult exam Start: 04-22-2023 ambulatory Maranda Castro APRN.CNP Work Phone: Gastroenterology Comment on above: Appeal Start: 04-22-2023 E-mail encounter fro m caregiver Maranda D Carine WALKER.REPORT CLERK Work Phone: [facility] Start: 04-18-2023 End: 04-18-2023 Admission to same day surgery center Maranda Magen Carine WALKER.REPORT CLERK Work Phone: Gastroenterology Comment on above: Class 3 severe obesi ty due to excess calories with serious comorbidity and body mass index (BMI) of 40.0 to 44.9 in adult (HCC) (Primary Dx); Complications of gastric bypass surgery; History of gastric bypass; Weight gain following gastric bypass surgery; Encounter for weight management Start: 04-18-2023 End: 04-18-2023 Telemedicine consultation with patient Maranda Castro APRJavyREPORT CLERK Work Phone: [facility] Start: 03-27-2023 End: 03-27-[address] Work Phone: Gastroenterology Comment on above: S/P gastric bypass ( Primary Dx); Impaired intestinal absorption; Class 3 severe obesity due to excess calories in adult, unspecified BMI, unspecified whether serious comorbidity present (HCC); Body mass index 40.0-44.9, adult (HCC); Dietary counseling and surveillance Start: 03-27-2023 End: 03-27-2023 Telemedicine consultation with patient Trey Monica ZULUAGA Work Phone: [facility] Start: 03-25-2023 End: 03-25-2023 Orders Only Maranda Castro APRN.REPORT CLERK Work Phone: Gastroenterology Comment on above: Class 3 severe obesi ty due to excess calories with serious comorbidity and body mass index (BMI) of 40.0 to 44.9 in adult (HCC) (Primary Dx) Arrived Start: 03-01-2023 Refill Yahaira rice APRN - REPORT CLERK Work Phone: [facility] Comment on above: Acquired hypothyroid ism Start: 02-20-2023 End: 02-20-2023 Admission to same day surgery center Maranda Castro APRN.REPORT CLERK Work Phone: Gastroenterology Comment on above: Class 3 severe obesi ty due to excess calories with serious comorbidity and body mass index (BMI) of 40.0 to 44.9 in adult (HCC) (Primary Dx); Complications of gastric bypass surgery; History of gastric bypass; Weight gain following gastric bypass surgery; Encounter for weight management Start: 02-20-2023 End: 02-20-2023 Telemedicine consultation with patient Maranda Castro APRN.CNP Work Phone: [facility] Start: 12-26-2022 End: 12-26-2022 Admission to same day surgery center Maranda Castro APRN.REPORT CLERK Work Phone: Gastroenterology Comment on above: Complications of gas tric bypass surgery (Primary Dx); History of gastric bypass; Weight gain following gastric bypass surgery; Encounter for weight management; Class 3 severe obesity due to excess calories without serious comorbidity with body mass index (BMI) of 40.0 to 44.9 in adult (HCC) Start: 12-26-2022 End: 12-26-2022 Telemedicine consultation with patient Maranda Castro APRN.CNP Work Phone: [facility] Start: 12-24-2022 End: 12-24-2022 ambulatory [facility] Work Phone: Start: 12-24-2022 End: 12-24-2022 Patient encounter procedure [facility] Work Phone: Start: 12-10-2022 End: 12-10-2022 Patient encounter procedure Fatuma Urena PA-C Work Phone: General Surgery Comment on above: Family history of re ctal cancer (Primary Dx); Encounter for screening for malignant neoplasm of colon Start: 12-09-2022 End: 12-09-2022 Patient encounter procedure Ana M Sotelo APRN.REPORT CLERK Work Phone: OB/Gynecology Comment on above: Encounter for gyneco logical examination (general) (routine) without abnormal findings (Primary Dx); Encounter for screening mammogram for malignant neoplasm of breast; Encounter for screening for malignant neoplasm of colon Start: 12-09-2022 End: 12-09-2022 Patient encounter status Ana M Sotelo APRN.REPORT CLERK Work Phone: [facility] Work Phone: Start: 10-08-2022 Refill Yahaira rice APRN - REPORT CLERK Work Phone: [facility] Comment on above: Acquired hypothyroid ism (Primary Dx) Start: 10-04-2022 ambulatory Maranda Castro 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.REPORT CLERK Work Phone: Gastroenterology Comment on above: insurance appeal Start: 08-08-2022 End: 08-08-2022 Admission to same day surgery center Maranda Castro 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.REPORT CLERK Work Phone: Gastroenterology Comment on above: Complications of bar iatric procedures (Primary Dx); History of gastric bypass; Weight gain following gastric bypass surgery; Obesity, Class III, BMI 40-49.9 (morbid obesity) (HCC); Encounter for weight management Start: 08-08-2022 End: 08-08-2022 Telemedicine consultation with patient Maranda Castro 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.REPORT CLERK Work Phone: [facility] Start: 08-01-2022 Telephone encounter Micheal Thomas MD Work Phone: Gastroenterology Comment on above: Patient Update Start: 2022 Telephone encounter Manish cho MD Work Phone: [facility] Comment on above: Other (Coding wrong on pt bill) Start: 07-12-2022 Orders Only Micheal Thomas MD Work Phone: Gastroenterology Comment on above: Complications of bar iatric procedures (Primary Dx); Morbid obesity (HCC) Start: 07-05-2022 End: 07-05-2022 Subsequent hospital visit by physician Micheal Thomas MD Work Phone: Gastroenterology Comment on above: Complications of bar iatric procedures [K95.89] Start: 07-04-2022 End: 07-04-2022 Periodic preventive med est patient 40-64yrs Manish Vazquez MD Work Phone: [facility] Comment on above: Impacted cerumen of right ear (Primary Dx); School physical exam Start: 07-04-2022 Telephone encounter Demetri benson MD Work Phone: [facility] Comment on above: Care Coordination Start: 06-27-2022 Telephone encounter Phoebe Salamanca LPN Gastroenterology Comment on above: Appointment Start: 06-12-2022 Telephone encounter Demetri benson MD Work Phone: [facility] Comment on above: form (/) Start: 05-14-2022 End: 05-14-2022 Patient encounter status Demetri Arnold MD Work Phone: [facility] Start: 05-14-2022 End: 05-14-2022 Periodic preventive med est patient 40-64yrs Demetri Arnold MD Work Phone: [facility] Comment on above: Well adult exam (Maude leydi Dx); Acquired iron deficiency anemia due to decreased absorption; Autoimmune disorder (CMS/HCC) (HCC); Vitamin D deficiency; Acquired hypothyroidism Start: 04-08-2022 Refill Parveen Tobias APRN.WALKER Work Phone: General Surgery Comment on above: Refill Request Start: 03-06-2022 End: 03-06-2022 ambulatory Maranda Castro 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.REPORT CLERK Work Phone: Gastroenterology Comment on above: Complications of bar iatric procedures (Primary Dx); History of Armijo's esophagus; History of gastric bypass; Obesity, Class III, BMI 40-49.9 (morbid obesity) ([facility]) Start: 03-06-2022 End: 03-06-2022 Telemedicine consultation with patient Maranda Us Carine WALKER.REPORT CLERK Work Phone: [facility] Start: 02-25-2022 End: 02-25-[address] Work Phone: General Surgery Comment on above: Class 3 obesity ([facility] ) (Primary Dx); Dietary counseling and surveillance; S/P gastric bypass; Impaired intestinal absorption Start: 02-25-2022 End: 02-25-2022 Telemedicine consultation with patient Roberth Chamorro RD Work Phone: [facility] Start: 02-22-2022 End: 02-23-2022 ambulatory PARVEEN TOBIAS Facility:[facility] Start: 02-21-2022 E-mail encounter fro m caregiver Maranda Castro APRN.WALKER Work Phone: [facility] Start: 02-21-2022 Patient encounter procedure Maranda Castro 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.REPORT CLERK Work Phone: Gastroenterology Comment on above: New Appointment Start: 02-15-2022 End: 02-15-2022 ambulatory Parveen Tobias APRN.CNP Work Phone: General Surgery Comment on above: S/P gastric bypass ( Primary Dx); Class 3 severe obesity due to excess calories without serious comorbidity with body mass index (BMI) of 40.0 to 44.9 in adult ([facility]) Start: 02-15-2022 End: 02-15-2022 Telemedicine consultation with patient Parveen Tobias AARON.REPORT CLERK Work Phone: [facility] Start: 12-24-2021 End: 12-24-2021 Patient encounter procedure [facility] Start: 12-07-2021 End: 12-07-2021 Patient encounter procedure Joana Carrerachilo GIBSONREPORT CLERK Work Phone: OB/Gynecology Comment on above: Class 3 severe obesi ty with serious comorbidity and body mass index (BMI) of 40.0 to 44.9 in adult, unspecified obesity type (HCC) (Primary Dx); Osteoarthritis of both knees, unspecified osteoarthritis type; Polyarthralgia; History of Abisai-en-Y gastric bypass Start: 12-06-2021 End: 12-06-2021 Patient encounter procedure Ana M Peyton WALKER.REPORT CLERK Work Phone: OB/Gynecology Comment on above: Encounter for gyneco logical examination (general) (routine) without abnormal findings (Primary Dx); Encounter for screening mammogram for malignant neoplasm of breast Start: 12-06-2021 End: 12-06-2021 Patient encounter status Ana M Gramajomeghan WALKER.REPORT CLERK Work Phone: OB/Gynecology Start: 10-15-2021 End: 10-15-2021 Subsequent hospital visit by physician Norma Woo MD Work Phone: [facility] Comment on above: Arrived Start: 09-25-2021 End: 09-25-2021 ambulatory Monique Avila PT Work Phone: [facility] Comment on above: Closed fracture of r ight ankle with routine healing, subsequent encounter (Primary Dx); Acute right ankle pain Start: 09-19-2021 End: 09-19-2021 ambulatory Kelby Hernandez OPERATOR [employer] Work Phone: [facility] Comment on above: Closed fracture of r ight ankle with routine healing, subsequent encounter (Primary Dx) Start: 09-06-2021 End: 09-06-2021 ambulatory Monique Avila PT Work Phone: [facility] Comment on above: Closed fracture of r ight ankle with routine healing, subsequent encounter (Primary Dx) Start: 09-04-2021 End: 09-04-2021 ambulatory Kelby Dominguezsammy OPERATOR [employer] Work Phone: [facility] Comment on above: Closed fracture of r ight ankle with routine healing, subsequent encounter (Primary Dx); Difficulty walking due to ankle and foot joint; Acute right ankle pain Start: 08-30-2021 End: 08-30-2021 ambulatory Kelby David OPERATOR [employer] Work Phone: [facility] Comment on above: Closed fracture of r ight ankle with routine healing, subsequent encounter (Primary Dx) Start: 08-23-2021 End: 08-23-2021 ambulatory Monique Avila PT Work Phone: [facility] Comment on above: Closed fracture of r ight ankle with routine healing, subsequent encounter (Primary Dx) Start: 08-21-2021 End: 08-21-2021 ambulatory Kelby David OPERATOR [employer] Work Phone: [facility] Comment on above: Closed fracture of r ight ankle with routine healing, subsequent encounter (Primary Dx) Start: 08-16-2021 End: 08-16-2021 ambulatory Kelby Dominguezsammy OPERATOR [employer] Work Phone: [facility] Comment on above: Closed fracture of r ight ankle with routine healing, subsequent encounter (Primary Dx); Difficulty walking due to ankle and foot joint; Acute right ankle pain Start: 08-07-2021 End: 08-07-2021 ambulatory Monique Avila PT Work Phone: [facility] Comment on above: Closed fracture of r ight ankle with routine healing, subsequent encounter (Primary Dx); Difficulty walking due to ankle and foot joint; Acute right ankle pain Start: 06-26-2021 End: 06-30-2021 ambulatory LURDES AGUSTIN [facility] Start: 06-26-2021 End: 06-26-2021 Office outpatient new 30 minutes Lurdes Agustin MD Work Phone: [facility] Comment on above: Ankle injury, right, initial encounter (Primary Dx); Fracture of distal end of tibia with fibula, right, closed, initial encounter Start: 04-03-2021 End: 04-04-2021 ambulatory NORMA WOO [facility] Start: 02-13-2021 End: 02-13-2021 Emergency department patient visit Chidi Jack [facility] 07 Start: 04-18-2020 End: 04-19-2020 ambulatory NORMA WOO [facility] Start: 07-20-2019 End: 07-20-2019 Subsequent hospital visit by physician Demetri Arnold Work Phone: [facility] Comment on above: Cellulitis of left b reast Start: 12-14-2014 End: 02-05-2018 Patient encounter procedure Norma Woo MD Work Phone: [facility] Procedures Date Procedure Procedure Detail Performing Clinician Start: 07-28-2024 Esophagogastroduodenoscopy transoral diagnostic Maranda Castro 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.REPORT CLERK Work Phone: Start: 07-15-2024 Adult depression screening assessment Adali Oliveros PSYD Work Phone: Start: 07-14-2024 Liver elastography w/o imag w/i&r Bela Jules MD Work Phone: Start: 07-14-2024 Antibody screen DEMETRI ARNOLD Comment on above: Order Comment: Specimen Type: BLOOD SPEC IMEN Ordering Facility: [facility] Address: [address] [place] [address] Performed By: #### T [id number] #### [facility] CLIA [id number] [address] [place] [address] [place] Start: 07-14-2024 Lipid 1996 panel - Serum or Plasma Hepatology [facility] Work Phone: Start: 06-11-2024 Thyrotropin [Units/volume] in Serum or Plasma Brandy Rodney DO Work Phone: Start: 06-10-2024 Adult depression screening assessment Demetri Arnold MD Work Phone: Start: 04-23-2024 Lipid 1996 panel - Serum or Plasma Maranda Paci 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.REPORT CLERK Work Phone: Start: 04-21-2024 Adult depression screening assessment Adali Oliveros PSYD Work Phone: Start: 01-30-2024 Adult depression screening assessment Maranda Paci 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.REPORT CLERK Work Phone: Start: 01-02-2024 Mammography Demetri Arnold MD Work Phone: Start: 10-30-2023 Esophagogastroduodenoscopy transoral diagnostic Maranda D Paci 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.REPORT CLERK Work Phone: Start: 10-16-2023 Liver elastography w/o imag w/i&r Maranda D Paci 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.REPORT CLERK Work Phone: Start: 10-16-2023 Lipid 1996 panel - Serum or Plasma Hepatology [facility] Work Phone: Start: 05-21-2023 End: 05-21-2023 Complement antigen each component Norma Woo MD Work Phone: Start: 05-21-2023 Complete blood count with white cell differential, automated Norma Woo MD Work Phone: Start: 05-21-2023 End: 05-21-2023 Comprehensive metabolic panel Norma ytson MD Work Phone: Start: 05-21-2023 Urnls dip stick/tablet rgnt auto w/o microscopy Norma Woo MD Work Phone: Start: 05-21-2023 Adult depression screening assessment Beryl Auguste MA Start: 05-21-2023 Lipid 1996 panel - Serum or Plasma Norma Woo MD Work Phone: Start: 05-21-2023 End: 05-21-2023 Thyrotropin [Units/volume] in Serum or Plasma Manish Vazquez MD Work Phone: Start: 12-25-2022 Mammography Yahaira Sawant 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 - REPORT CLERK Work Phone: Start: 12-24-2022 End: 12-24-2022 Mammography Maranda Carine 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.REPORT CLERK Work Phone: Start: 12-13-2022 Colonoscopy Fatuma Urena PA-C Work Phone: Start: 07-05-2022 Esophagogastroduodenoscopy transoral diagnostic Maranda Castro 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.REPORT CLERK Work Phone: Start: 05-14-2022 Adult depression screening assessment Yahaira Sawant 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 - REPORT CLERK Work Phone: Start: 05-14-2022 Lipid 1996 panel - Serum or Plasma Manish Vazquez MD Work Phone: Start: 05-14-2022 Thyrotropin [Units/volume] in Serum or Plasma Manish Vazquez MD Work Phone: Start: 12-24-2021 End: 12-24-2021 Screening mammography Start: 10-15-2021 Dxa bone density study 1/> sites axial skel Norma Woo MD Work Phone: Start: 06-26-2021 Application of splint Lurdes Agustin MD Work Phone: Start: 06-26-2021 APPY POSTERIOR ANKLE SPLINT FORMED Lurdes Agustin MD Work Phone: Start: 12-14-2020 Lipid 1996 panel - Serum or Plasma Demetri Arnold MD Work Phone: Start: 11-19-2019 History of operative procedure on knee S/P ACL reconstruction Moniqeu Avila PT Work Phone: Start: 07-20-2019 Us breast uni real time with image limited Demetri Arnold Work Phone: Start: 07-20-2019 Diagnostic mammography computer-aided detcj uni Ryann Warner Work Phone: Start: 12-16-2016 Mammography Monique Avila PT Work Phone: Plan of Treatment Date Care Activity Detail Author Start: 07-30-2046 RSV Immunization for Adults (1 - 1-dose 75+ series) RSV Immunization for Adults (1 - 1-dose 75+ series) [facility] Start: 2031 RSV Immunization aged 60 or older (1 - 1-dose 60+ series) RSV Immunization aged 60 or older (1 - 1-dose 60+ series) [facility] Start: 01-13-2030 DTaP/Tdap/Td Vaccines (8 - Td or Tdap) DTaP/Tdap/Td Vaccines (8 - Td or Tdap) [facility] Start: 01-13-2030 Urine microalbumin profile DTaP,Tdap,Td Vaccine (8 - Td or Tdap) [facility] Start: 07-14-2029 Lipid panel Lipid Screening [facility] Start: 04-23-2029 Lipid panel Lipid Screening [facility] Start: 10-15-2028 Lipid panel Lipid Screening [facility] Start: 05-21-2028 Lipid panel [facility] Start: 07-30-2027 Diabetes Screening Diabetes Screening [facility] Start: 07-15-2027 Diabetes Screening Diabetes Screening [facility] Start: 05-14-2027 Lipid 1996 panel - Serum or Plasma Lipid Screening [facility] Start: 05-14-2027 Lipid panel [facility] Start: 05-14-2027 LIPID SCREEN LIPID SCREEN [facility] Start: 04-23-2027 Diabetes Screening Diabetes Screening [facility] Start: 10-15-2026 Diabetes Screening Diabetes Screening [facility] Start: 05-21-2026 Diabetes Screening Diabetes Screening [facility] Start: 05-12-2026 DTaP/Tdap/Td vaccine (7 - Td or Tdap) DTaP/Tdap/Td vaccine (7 - Td or Tdap) [facility] Start: 05-12-2026 DTaP/Tdap/Td Vaccines (7 - Td or Tdap) DTaP/Tdap/Td Vaccines (7 - Td or Tdap) [facility] Start: 05-12-2026 Tetanus vaccination Tetanus: Every 10yrs [facility] Start: 12-22-2025 End: 12-22-2025 Patient encounter procedure 12/22/2025 7:00 AM EDT Office Visit OB/Gynecology [address] [place] [address] Aan M Sotelo, AARON.REPORT CLERK [address] [place] [address] Annual OB/Gynecology Comment on above: Annual Start: 12-14-2025 Lipid panel [facility] Start: 07-15-2025 Anxiety Screening Anxiety Screening [facility] Start: 07-15-2025 Depression Screening Depression Screening [facility] Start: 07-14-2025 Diabetes mellitus screening Diabetes Screening [facility] Start: 06-13-2025 End: 06-13-2025 Patient encounter procedure 06/13/2025 2:40 PM EST Office Visit [facility] [address] [place] [id number] Demetri Arnold MD [address] [place], [place] [id number] [facility] Start: 06-11-2025 Thyroid stimulating hormone measurement TSH Level [facility] Start: 06-10-2025 Depression Screening Depression Screening [facility] Start: 05-14-2025 Diabetes mellitus screening Diabetes Screening [facility] Start: 05-14-2025 DIABETES SCREEN DIABETES SCREEN [facility] Start: 05-14-2025 Diabetes Screening Diabetes Screening [facility] Start: 04-23-2025 Diabetes mellitus screening Diabetes Screening [facility] Start: 04-21-2025 Anxiety Screening Anxiety Screening [facility] Start: 04-21-2025 Depression Screening Depression Screening [facility] Start: 03-14-2025 End: 03-14-2025 Follow-up encounter 03/14/2025 8:00 AM EST [facility] [address] [place] [address] Adali Oliveros, ARACELISYD [address] [place] [address] 6 month virtual follow up per [facility] Comment on above: 6 month virtual follow up per [facility] Start: 02-22-2025 DIABETES SCREEN DIABETES SCREEN [facility] Start: 01-29-2025 Anxiety Screening Anxiety Screening [facility] Start: 01-29-2025 Depression Screening Depression Screening [facility] Start: 01-24-2025 End: 01-24-2025 ambulatory 01/24/2025 8:30 AM EDT [facility] [address] [address] Maranda Castro APRN.REPORT CLERK [address] [place] [address] *bariatric - reschedule with Maranda Castro CNP* Gastroenterology Comment on above: *bariatric - reschedule with Maranda Castro CNP* Start: 01-20-2025 End: 01-20-2025 ambulatory 01/20/2025 3:15 PM EDT [facility] [address] [address] Angie Roth, RD [address] [facility] [place] [address] 6 month post [facility] Gastroenterology Comment on above: 6 month post [facility] Start: 01-20-2025 End: 04-21-2025 Calcium [Mass/volume] in Serum or Plasma CALCIUM, TOTAL Lab Routine Complications of gastric bypass surgery History of gastric bypass Weight gain following gastric bypass surgery Encounter for weight management Class 1 obesity due to excess calories with serious comorbidity and body mass index (BMI) of 30.0 to 30.9 in adult Expected: 01/20/2025 (Approximate), Expires: 04/21/2025 [facility] Comment on above: Expected: 01/20/2025 (Approximate), Expi res: 04/21/2025 Start: 01-20-2025 End: 04-21-2025 CBC W Auto Differential panel - Blood COMPLETE BLOOD COUNT AND DIFFERENTIAL Lab Routine Complications of gastric bypass surgery History of gastric bypass Weight gain following gastric bypass surgery Encounter for weight management Class 1 obesity due to excess calories with serious comorbidity and body mass index (BMI) of 30.0 to 30.9 in adult Expected: 01/20/2025 (Approximate), Expires: 04/21/2025 [facility] Comment on above: Expected: 01/20/2025 (Approximate), Expi res: 04/21/2025 Start: 01-20-2025 End: 04-21-2025 Cobalamin (Vitamin B12) [Mass/volume] in Serum or Plasma VITAMIN B12 Lab Routine Complications of gastric bypass surgery History of gastric bypass Weight gain following gastric bypass surgery Encounter for weight management Class 1 obesity due to excess calories with serious comorbidity and body mass index (BMI) of 30.0 to 30.9 in adult Expected: 01/20/2025 (Approximate), Expires: 04/21/2025 [facility] Comment on above: Expected: 01/20/2025 (Approximate), Expi res: 04/21/2025 Start: 01-20-2025 End: 04-21-2025 Comprehensive metabolic 2000 panel - Serum or Plasma COMPREHENSIVE METABOLIC PANEL Lab Routine Complications of gastric bypass surgery History of gastric bypass Weight gain following gastric bypass surgery Encounter for weight management Class 1 obesity due to excess calories with serious comorbidity and body mass index (BMI) of 30.0 to 30.9 in adult Expected: 01/20/2025 (Approximate), Expires: 04/21/2025 [facility] Comment on above: Expected: 01/20/2025 (Approximate), Expi res: 04/21/2025 Start: 01-20-2025 End: 04-21-2025 Ferritin [Mass/volume] in Serum or Plasma FERRITIN Lab Routine Complications of gastric bypass surgery History of gastric bypass Weight gain following gastric bypass surgery Encounter for weight management Class 1 obesity due to excess calories with serious comorbidity and body mass index (BMI) of 30.0 to 30.9 in adult Expected: 01/20/2025 (Approximate), Expires: 04/21/2025 [facility] Comment on above: Expected: 01/20/2025 (Approximate), Expi res: 04/21/2025 Start: 01-20-2025 End: 04-21-2025 Folate [Mass/volume] in Serum or Plasma FOLATE, SERUM Lab Routine Complications of gastric bypass surgery History of gastric bypass Weight gain following gastric bypass surgery Encounter for weight management Class 1 obesity due to excess calories with serious comorbidity and body mass index (BMI) of 30.0 to 30.9 in adult Expected: 01/20/2025 (Approximate), Expires: 04/21/2025 [facility] Comment on above: Expected: 01/20/2025 (Approximate), Expi res: 04/21/2025 Start: 01-20-2025 End: 04-21-2025 Hemoglobin A1c in Blood HEMOGLOBIN A1C Lab Routine Complications of gastric bypass surgery History of gastric bypass Weight gain following gastric bypass surgery Encounter for weight management Class 1 obesity due to excess calories with serious comorbidity and body mass index (BMI) of 30.0 to 30.9 in adult Expected: 01/20/2025 (Approximate), Expires: 04/21/2025 [facility] Comment on above: Expected: 01/20/2025 (Approximate), Expi res: 04/21/2025 Start: 01-20-2025 End: 04-21-2025 Insulin [Units/volume] in Serum or Plasma INSULIN, TOTAL, SERUM Lab Routine Complications of gastric bypass surgery History of gastric bypass Weight gain following gastric bypass surgery Encounter for weight management Class 1 obesity due to excess calories with serious comorbidity and body mass index (BMI) of 30.0 to 30.9 in adult Expected: 01/20/2025 (Approximate), Expires: 04/21/2025 [facility] Comment on above: Expected: 01/20/2025 (Approximate), Expi res: 04/21/2025 Start: 01-20-2025 End: 04-21-2025 Iron and Iron binding capacity panel - Serum or Plasma IRON AND TIBC Lab Routine Complications of gastric bypass surgery History of gastric bypass Weight gain following gastric bypass surgery Encounter for weight management Class 1 obesity due to excess calories with serious comorbidity and body mass index (BMI) of 30.0 to 30.9 in adult Expected: 01/20/2025 (Approximate), Expires: 04/21/2025 [facility] Comment on above: Expected: 01/20/2025 (Approximate), Expi res: 04/21/2025 Start: 01-20-2025 End: 04-21-2025 Lipid 1996 panel - Serum or Plasma LIPID PANEL, FASTING Lab Routine Complications of gastric bypass surgery History of gastric bypass Weight gain following gastric bypass surgery Encounter for weight management Class 1 obesity due to excess calories with serious comorbidity and body mass index (BMI) of 30.0 to 30.9 in adult Expected: 01/20/2025 (Approximate), Expires: 04/21/2025 [facility] Comment on above: Expected: 01/20/2025 (Approximate), Expi res: 04/21/2025 Start: 01-20-2025 End: 04-21-2025 LIVER FIBROSIS AND ACTIVITY LIVER FIBROSIS AND ACTIVITY Lab Routine Complications of gastric bypass surgery History of gastric bypass Weight gain following gastric bypass surgery Encounter for weight management Class 1 obesity due to excess calories with serious comorbidity and body mass index (BMI) of 30.0 to 30.9 in adult Expected: 01/20/2025 (Approximate), Expires: 04/21/2025 [facility] Comment on above: Expected: 01/20/2025 (Approximate), Expi res: 04/21/2025 Start: 01-20-2025 End: 04-21-2025 Parathyrin.intact [Mass/volume] in Serum or Plasma PTH INTACT Lab Routine Complications of gastric bypass surgery History of gastric bypass Weight gain following gastric bypass surgery Encounter for weight management Class 1 obesity due to excess calories with serious comorbidity and body mass index (BMI) of 30.0 to 30.9 in adult Expected: 01/20/2025 (Approximate), Expires: 04/21/2025 [facility] Comment on above: Expected: 01/20/2025 (Approximate), Expi res: 04/21/2025 Start: 01-20-2025 End: 04-21-2025 Retinol [Mass/volume] in Serum or Plasma VITAMIN A/RETINOL Lab Routine Complications of gastric bypass surgery History of gastric bypass Weight gain following gastric bypass surgery Encounter for weight management Class 1 obesity due to excess calories with serious comorbidity and body mass index (BMI) of 30.0 to 30.9 in adult Expected: 01/20/2025 (Approximate), Expires: 04/21/2025 [facility] Comment on above: Expected: 01/20/2025 (Approximate), Expi res: 04/21/2025 Start: 01-20-2025 End: 04-21-2025 VITAMIN B1 (THIAMINE), WHOLE BLOOD VITAMIN B1 (THIAMINE), WHOLE BLOOD Lab Routine Complications of gastric bypass surgery History of gastric bypass Weight gain following gastric bypass surgery Encounter for weight management Class 1 obesity due to excess calories with serious comorbidity and body mass index (BMI) of 30.0 to 30.9 in adult Expected: 01/20/2025 (Approximate), Expires: 04/21/2025 [facility] Comment on above: Expected: 01/20/2025 (Approximate), Expi res: 04/21/2025 Start: 01-10-2025 Influenza vaccination Influenza Vaccine (#1) [facility] Start: 01-01-2025 Screening for malignant neoplasm of breast [facility] Start: 12-17-2024 End: 12-17-2024 Patient encounter procedure 12/17/2024 9:00 AM EDT Office Visit OB/Gynecology [address] [place] [address] Ana M Sotelo APRN.REPORT CLERK [address] [place] [address] ANNUAL OB/Gynecology Comment on above: ANNUAL Start: 10-23-2024 End: 10-23-2024 ambulatory 10/23/2024 9:00 AM EDT Results Only [facility] [address] [place] [address] [facility] Start: 10-22-2024 End: 10-22-2024 ambulatory 10/22/2024 8:00 AM EDT [facility] [address] [place] [id number] Adali Oliveros PSYD [address] [place] [address] post [facility] Psychology Comment on above: post [facility] Start: 10-20-2024 End: 01-19-2025 25-hydroxyvitamin D3 [Mass/volume] in Serum or Plasma VITAMIN D 25 HYDROXY Lab Routine Complications of gastric bypass surgery History of gastric bypass Weight gain following gastric bypass surgery Encounter for weight management Expected: 10/20/2024, Expires: 01/19/2025 [facility] Work Phone: Comment on above: Expected: 10/20/2024, Expires: Start: 10-20-2024 End: 10-20-2024 ambulatory Gastroenterology Comment on above: post [facility] Start: 10-15-2024 Diabetes mellitus screening [facility] Start: 09-09-2024 End: 09-09-2024 Follow-up encounter 09/09/2024 9:00 AM EDT [facility] [address] [place] [address] Adali Oliveros PSYD [address] [place] [address] follow up Psychology Comment on above: follow up Start: 09-07-2024 End: 09-07-2024 ambulatory 09/07/2024 8:00 AM EDT [facility] [address] [address] Trey Ceron, RD [address] [place] [address] post [facility] Comment on above: post [facility] Start: 09-06-2024 End: 09-06-2024 ambulatory 09/06/2024 1:00 PM EDT [facility] [address] [place] [address] post [facility] Comment on above: post [facility] Start: 08-27-2024 End: 08-27-2024 ambulatory 08/27/2024 9:00 AM EDT [facility] [address] [address] Maranda Castro, 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.REPORT CLERK [address] [place] [id number] post [facility] Comment on above: post [facility] Start: 08-04-2024 End: 08-04-2024 ambulatory 08/04/2024 8:45 AM EDT [facility] [address] [address] Angie Roth, RD [address] [facility] [place] [address] post [facility] Comment on above: post [facility] Start: 07-28-2024 End: 07-28-2024 Patient encounter procedure 07/28/2024 10:30 AM EDT Appointment Gastroenterology [address] [address] Micheal Thomas MD [address] [place] [address] [facility] Comment on above: [facility] Start: 07-22-2024 End: 07-22-2024 ambulatory 07/22/2024 8:45 AM EDT [facility] [address] [address] Angie Roth, RD [address] [facility] [place] [address] post [facility] Comment on above: post [facility] Start: 07-15-2024 End: 07-15-2024 Follow-up encounter 07/15/2024 9:00 AM EST [facility] [address] [address] Adali Oliveros PSYD [address] [place] [address] 4 month follow up per staff message Psychology Comment on above: 4 month follow up per staff message Start: 07-14-2024 End: 07-14-2024 Patient encounter procedure 07/14/2024 9:00 AM EST Office Visit Gastroenterology [address] [address] Maranda Castro APRN.REPORT CLERK [address] [place], [place] [id number] pre [facility] 07/28 Gastroenterology Comment on above: pre [facility] 07/28 Start: 07-14-2024 End: 07-14-2024 [address] [place] [id number] Draw Station Comment on above: pre procedure 07/28 fibroscan pre [facility] 07/28 Start: 06-14-2024 End: 09-13-2024 25-hydroxyvitamin D3 [Mass/volume] in Serum or Plasma VITAMIN D 25 HYDROXY Lab Routine Complications of gastric bypass surgery History of gastric bypass Hepatic steatosis Class 1 obesity due to excess calories with body mass index (BMI) of 33.0 to 33.9 in adult, unspecified whether serious comorbidity present Impaired intestinal absorption Expected: 06/14/2024, Expires: 09/13/2024 [facility] Comment on above: Expected: 06/14/2024, Expires: Start: 06-14-2024 End: 09-13-2024 CBC W Auto Differential panel - Blood COMPLETE BLOOD COUNT AND DIFFERENTIAL Lab Routine Complications of gastric bypass surgery History of gastric bypass Hepatic steatosis Class 1 obesity due to excess calories with body mass index (BMI) of 33.0 to 33.9 in adult, unspecified whether serious comorbidity present Impaired intestinal absorption Expected: 06/14/2024, Expires: 09/13/2024 [facility] Comment on above: Expected: 06/14/2024, Expires: Start: 06-14-2024 End: 09-13-2024 Cobalamin (Vitamin B12) [Mass/volume] in Serum or Plasma VITAMIN B12 Lab Routine Complications of gastric bypass surgery History of gastric bypass Hepatic steatosis Class 1 obesity due to excess calories with body mass index (BMI) of 33.0 to 33.9 in adult, unspecified whether serious comorbidity present Impaired intestinal absorption Expected: 06/14/2024, Expires: 09/13/2024 [facility] Comment on above: Expected: 06/14/2024, Expires: Start: 06-14-2024 End: 09-13-2024 Comprehensive metabolic 2000 panel - Serum or Plasma COMPREHENSIVE METABOLIC PANEL Lab Routine Complications of gastric bypass surgery History of gastric bypass Hepatic steatosis Class 1 obesity due to excess calories with body mass index (BMI) of 33.0 to 33.9 in adult, unspecified whether serious comorbidity present Impaired intestinal absorption Expected: 06/14/2024, Expires: 09/13/2024 [facility] Comment on above: Expected: 06/14/2024, Expires: Start: 06-14-2024 End: 09-13-2024 Ferritin [Mass/volume] in Serum or Plasma FERRITIN Lab Routine Complications of gastric bypass surgery History of gastric bypass Hepatic steatosis Class 1 obesity due to excess calories with body mass index (BMI) of 33.0 to 33.9 in adult, unspecified whether serious comorbidity present Impaired intestinal absorption Expected: 06/14/2024, Expires: 09/13/2024 [facility] Comment on above: Expected: 06/14/2024, Expires: Start: 06-14-2024 End: 09-13-2024 Folate [Mass/volume] in Serum or Plasma FOLATE, SERUM Lab Routine Complications of gastric bypass surgery History of gastric bypass Hepatic steatosis Class 1 obesity due to excess calories with body mass index (BMI) of 33.0 to 33.9 in adult, unspecified whether serious comorbidity present Impaired intestinal absorption Expected: 06/14/2024, Expires: 09/13/2024 [facility] Comment on above: Expected: 06/14/2024, Expires: Start: 06-14-2024 End: 09-13-2024 Helicobacter pylori IgG Ab [Presence] in Serum or Plasma by Immunoassay H PYLORI IGG AB Lab Routine Complications of gastric bypass surgery History of gastric bypass Hepatic steatosis Class 1 obesity due to excess calories with body mass index (BMI) of 33.0 to 33.9 in adult, unspecified whether serious comorbidity present Impaired intestinal absorption Expected: 06/14/2024, Expires: 09/13/2024 [facility] Comment on above: Expected: 06/14/2024, Expires: Start: 06-14-2024 End: 09-13-2024 Hemoglobin A1c in Blood HEMOGLOBIN A1C Lab Routine Complications of gastric bypass surgery History of gastric bypass Hepatic steatosis Class 1 obesity due to excess calories with body mass index (BMI) of 33.0 to 33.9 in adult, unspecified whether serious comorbidity present Impaired intestinal absorption Expected: 06/14/2024, Expires: 09/13/2024 [facility] Comment on above: Expected: 06/14/2024, Expires: Start: 06-14-2024 End: 09-13-2024 Insulin [Units/volume] in Serum or Plasma INSULIN, TOTAL, SERUM Lab Routine Complications of gastric bypass surgery History of gastric bypass Hepatic steatosis Class 1 obesity due to excess calories with body mass index (BMI) of 33.0 to 33.9 in adult, unspecified whether serious comorbidity present Impaired intestinal absorption Expected: 06/14/2024, Expires: 09/13/2024 [facility] Comment on above: Expected: 06/14/2024, Expires: Start: 06-14-2024 End: 09-13-2024 Iron and Iron binding capacity panel - Serum or Plasma IRON AND TIBC Lab Routine Complications of gastric bypass surgery History of gastric bypass Hepatic steatosis Class 1 obesity due to excess calories with body mass index (BMI) of 33.0 to 33.9 in adult, unspecified whether serious comorbidity present Impaired intestinal absorption Expected: 06/14/2024, Expires: 09/13/2024 [facility] Comment on above: Expected: 06/14/2024, Expires: Start: 06-14-2024 End: 09-13-2024 Lipid 1996 panel - Serum or Plasma LIPID PANEL BASIC Lab Routine Complications of gastric bypass surgery History of gastric bypass Hepatic steatosis Class 1 obesity due to excess calories with body mass index (BMI) of 33.0 to 33.9 in adult, unspecified whether serious comorbidity present Impaired intestinal absorption Expected: 06/14/2024, Expires: 09/13/2024 [facility] Comment on above: Expected: 06/14/2024, Expires: Start: 06-14-2024 End: 09-13-2024 LIVER FIBROSIS AND ACTIVITY LIVER FIBROSIS AND ACTIVITY Lab Routine Complications of gastric bypass surgery History of gastric bypass Hepatic steatosis Class 1 obesity due to excess calories with body mass index (BMI) of 33.0 to 33.9 in adult, unspecified whether serious comorbidity present Impaired intestinal absorption Expected: 06/14/2024, Expires: 09/13/2024 [facility] Comment on above: Expected: 06/14/2024, Expires: Start: 06-14-2024 End: 09-13-2024 Microalbumin/Creatinine [Mass Ratio] in Urine ALBUMIN/CREATININE RATIO, URINE Lab Routine Complications of gastric bypass surgery History of gastric bypass Hepatic steatosis Class 1 obesity due to excess calories with body mass index (BMI) of 33.0 to 33.9 in adult, unspecified whether serious comorbidity present Impaired intestinal absorption Expected: 06/14/2024, Expires: 09/13/2024 [facility] Work Phone: Comment on above: Expected: 06/14/2024, Expires: Start: 06-14-2024 End: 09-13-2024 Parathyrin.intact [Mass/volume] in Serum or Plasma PTH INTACT Lab Routine Complications of gastric bypass surgery History of gastric bypass Hepatic steatosis Class 1 obesity due to excess calories with body mass index (BMI) of 33.0 to 33.9 in adult, unspecified whether serious comorbidity present Impaired intestinal absorption Expected: 06/14/2024, Expires: 09/13/2024 [facility] Comment on above: Expected: 06/14/2024, Expires: Start: 06-14-2024 End: 09-13-2024 Protein [Mass/volume] in Urine PROTEIN RANDOM URINE Lab Routine Complications of gastric bypass surgery History of gastric bypass Hepatic steatosis Class 1 obesity due to excess calories with body mass index (BMI) of 33.0 to 33.9 in adult, unspecified whether serious comorbidity present Impaired intestinal absorption Expected: 06/14/2024, Expires: 09/13/2024 [facility] Comment on above: Expected: 06/14/2024, Expires: Start: 06-14-2024 End: 09-13-2024 PT panel - Platelet poor plasma by Coagulation assay PROTHROMBIN TIME Lab Routine Complications of gastric bypass surgery History of gastric bypass Hepatic steatosis Class 1 obesity due to excess calories with body mass index (BMI) of 33.0 to 33.9 in adult, unspecified whether serious comorbidity present Impaired intestinal absorption Expected: 06/14/2024, Expires: 09/13/2024 [facility] Comment on above: Expected: 06/14/2024, Expires: Start: 06-14-2024 End: 09-13-2024 Retinol [Mass/volume] in Serum or Plasma VITAMIN A/RETINOL Lab Routine Complications of gastric bypass surgery History of gastric bypass Hepatic steatosis Class 1 obesity due to excess calories with body mass index (BMI) of 33.0 to 33.9 in adult, unspecified whether serious comorbidity present Impaired intestinal absorption Expected: 06/14/2024, Expires: 09/13/2024 [facility] Comment on above: Expected: 06/14/2024, Expires: Start: 06-14-2024 End: 09-13-2024 TOXICOLOGY SCREEN, ROUTINE URINE TOXICOLOGY SCREEN, ROUTINE URINE Lab Routine Complications of gastric bypass surgery History of gastric bypass Hepatic steatosis Class 1 obesity due to excess calories with body mass index (BMI) of 33.0 to 33.9 in adult, unspecified whether serious comorbidity present Impaired intestinal absorption Expected: 06/14/2024, Expires: 09/13/2024 [facility] Comment on above: Expected: 06/14/2024, Expires: Start: 06-14-2024 End: 09-13-2024 TYPE AND SCREEN,30 DAY TYPE AND SCREEN,30 DAY Blood Bank Routine Complications of gastric bypass surgery History of gastric bypass Hepatic steatosis Class 1 obesity due to excess calories with body mass index (BMI) of 33.0 to 33.9 in adult, unspecified whether serious comorbidity present Impaired intestinal absorption Expected: 06/14/2024, Expires: 09/13/2024 [facility] Comment on above: Expected: 06/14/2024, Expires: Start: 06-14-2024 End: 09-13-2024 VITAMIN B1 (THIAMINE), WHOLE BLOOD VITAMIN B1 (THIAMINE), WHOLE BLOOD Lab Routine Complications of gastric bypass surgery History of gastric bypass Hepatic steatosis Class 1 obesity due to excess calories with body mass index (BMI) of 33.0 to 33.9 in adult, unspecified whether serious comorbidity present Impaired intestinal absorption Expected: 06/14/2024, Expires: 09/13/2024 [facility] Comment on above: Expected: 06/14/2024, Expires: Start: 06-11-2024 End: 06-11-2025 Comprehensive metabolic 1998 panel - Serum or Plasma Comprehensive metabolic panel Lab Routine Well adult exam Expected: 06/11/2024 (Approximate), Expires: 06/11/[address] [facility] [email or web address] Work Phone: Comment on above: Expected: 06/11/2024 (Approximate), Expi res: 06/11/2025 Start: 06-11-2024 End: 06-11-2025 Ferritin [Mass/volume] in Serum or Plasma Ferritin Lab Routine Elevated ferritin Expected: 06/11/2024 (Approximate), Expires: 06/11/[address] [facility] [email or web address] Comment on above: Expected: 06/11/2024 (Approximate), Expi res: 06/11/2025 Start: 06-11-2024 End: 06-11-2025 Hemochromatosis mutation Hemochromatosis mutation Lab Routine Elevated ferritin Expected: 06/11/2024 (Approximate), Expires: 06/11/2025 [facility] Comment on above: Expected: 06/11/2024 (Approximate), Expi res: 06/11/2025 Start: 06-11-2024 End: 06-11-2025 Hemoglobin A1c measurement Hemoglobin A1c Lab Routine Well adult exam Expected: 06/11/2024 (Approximate), Expires: 06/11/2025 [facility] Comment on above: Expected: 06/11/2024 (Approximate), Expi res: 06/11/2025 Start: 06-11-2024 End: 06-11-2025 Iron and Iron binding capacity panel - Serum or Plasma Iron and TIBC Lab Routine Elevated ferritin Expected: 06/11/2024 (Approximate), Expires: 06/11/[address] [facility] Comment on above: Expected: 06/11/2024 (Approximate), Expi res: 06/11/2025 Start: 06-11-2024 End: 06-11-2025 Thyrotropin [Units/volume] in Serum or Plasma TSH Lab Routine Well adult exam Expected: 06/11/2024 (Approximate), Expires: 06/11/2025 [facility] Comment on above: Expected: 06/11/2024 (Approximate), Expi res: 06/11/2025 Start: 06-11-2024 End: 06-11-2024 Patient encounter procedure 06/11/2024 1:20 PM EST Office Visit [address] [place] [address] Demetri Arnold MD [address] [place] [address] [facility] Start: 05-24-2024 End: 05-24-2024 Patient encounter procedure [facility] Start: 05-21-2024 COVID-19 Vaccine () COVID-19 Vaccine () [facility] Comment on above: Postponed from 01/10/2023 (Patient Refus ed) Start: 05-21-2024 Depression Screening Depression Screening [facility] Start: 05-21-2024 Diabetes mellitus screening Diabetes Screening [facility] Start: 05-21-2024 Thyroid stimulating hormone measurement TSH Level [facility] Start: 04-29-2024 End: 04-29-2024 Follow-up encounter 04/29/2024 4:00 PM EST [facility] [address] [address] Micheal Thomas MD [address] [place] [address] follow up Gastroenterology Comment on above: follow up Start: 04-23-2024 End: 04-23-2024 ambulatory 04/23/2024 7:30 AM EST Results Only [facility] [address] [place] [address] [facility] Start: 04-22-2024 End: 07-22-2024 25-hydroxyvitamin D3 [Mass/volume] in Serum or Plasma VITAMIN D 25 HYDROXY Lab Routine Bariatric surgery status Expected: 04/22/2024, Expires: 07/22/2024 [facility] Comment on above: Expected: 04/22/2024, Expires: Start: 04-22-2024 End: 07-22-2024 CBC W Auto Differential panel - Blood COMPLETE BLOOD COUNT AND DIFFERENTIAL Lab Routine Bariatric surgery status Expected: 04/22/2024, Expires: 07/22/2024 [facility] Comment on above: Expected: 04/22/2024, Expires: Start: 04-22-2024 End: 07-22-2024 Cobalamin (Vitamin B12) [Mass/volume] in Serum or Plasma VITAMIN B12 Lab Routine Bariatric surgery status Expected: 04/22/2024, Expires: 07/22/2024 [facility] Comment on above: Expected: 04/22/2024, Expires: Start: 04-22-2024 End: 07-22-2024 Comprehensive metabolic 2000 panel - Serum or Plasma COMPREHENSIVE METABOLIC PANEL Lab Routine Bariatric surgery status Expected: 04/22/2024, Expires: 07/22/2024 [facility] Comment on above: Expected: 04/22/2024, Expires: Start: 04-22-2024 End: 07-22-2024 Ferritin [Mass/volume] in Serum or Plasma FERRITIN Lab Routine Bariatric surgery status Expected: 04/22/2024, Expires: 07/22/2024 [facility] Comment on above: Expected: 04/22/2024, Expires: Start: 04-22-2024 End: 07-22-2024 Hemoglobin A1c in Blood HEMOGLOBIN A1C Lab Routine Bariatric surgery status Expected: 04/22/2024, Expires: 07/22/2024 [facility] Comment on above: Expected: 04/22/2024, Expires: Start: 04-22-2024 End: 07-22-2024 Insulin [Units/volume] in Serum or Plasma INSULIN ASSAY BLOOD Lab Routine Bariatric surgery status Expected: 04/22/2024, Expires: 07/22/2024 [facility] Comment on above: Expected: 04/22/2024, Expires: Start: 04-22-2024 End: 07-22-2024 Lipid 1996 panel - Serum or Plasma LIPID PANEL BASIC Lab Routine Bariatric surgery status Expected: 04/22/2024, Expires: 07/22/2024 [facility] Comment on above: Expected: 04/22/2024, Expires: Start: 04-22-2024 End: 07-22-2024 Parathyrin.intact [Mass/volume] in Serum or Plasma PTH INTACT Lab Routine Bariatric surgery status Expected: 04/22/2024, Expires: 07/22/2024 [facility] Comment on above: Expected: 04/22/2024, Expires: Start: 04-22-2024 End: 07-22-2024 Retinol [Mass/volume] in Serum or Plasma VITAMIN A/RETINOL Lab Routine Bariatric surgery status Expected: 04/22/2024, Expires: 07/22/2024 [facility] Comment on above: Expected: 04/22/2024, Expires: Start: 04-22-2024 End: 07-22-2024 VITAMIN B1 (THIAMINE), WHOLE BLOOD VITAMIN B1 (THIAMINE), WHOLE BLOOD Lab Routine Bariatric surgery status Expected: 04/22/2024, Expires: 07/22/2024 [facility] Work Phone: Comment on above: Expected: 04/22/2024, Expires: Start: 04-22-2024 End: 04-22-2024 ambulatory 04/22/2024 8:45 AM EST [facility] [address] [address] Angie Roth, RD [address] [facility] [place] [address] post [facility] Comment on above: post [facility] Start: 04-21-2024 End: 04-21-2024 Follow-up encounter 04/21/2024 9:00 AM EST [facility] [address] [place] [address] Adali Oliveros PSYD [address] [place], [place] [id number] follow up Psychology Comment on above: follow up Start: 01-30-2024 End: 01-30-2024 Follow-up encounter 01/30/2024 9:00 AM EDT [facility] [address] [place] [id number] Adali Oliveros, PSYD [address] [place], [place] [id number] follow up Psychology Comment on above: follow up Start: 01-22-2024 End: 01-22-2024 ambulatory Gastroenterology Comment on above: post APC Start: 01-11-2024 Covid-19 Vaccine ( season) Covid-19 Vaccine ( season) [facility] Start: 01-11-2024 Covid-19 Vaccine ( season) Covid-19 Vaccine ( season) [facility] Start: 01-11-2024 Influenza vaccination [facility] Start: 01-01-2024 End: 01-01-2024 Follow-up encounter 01/01/2024 8:00 AM EDT Distance [facility] Psychology [address] [place] [address] Adali Oliveros, PSYD [address] [place] [address] follow up Psychology Comment on above: follow up Start: 12-26-2023 Screening for malignant neoplasm of breast M[facility]ogram [facility] Start: 12-25-2023 Mammography [facility] Start: 12-25-2023 Screening for malignant neoplasm of breast Mammogram Screening [facility] Start: 12-16-2023 End: 12-16-2023 Patient encounter procedure 12/16/2023 9:00 AM EDT Office Visit OB/Gynecology [address] [place] [address] Ana M Sotelo APRN.REPORT CLERK [address] [place] [address] Annual OB/Gynecology Comment on above: Annual Start: 12-14-2023 Colonoscopy COLONOSCOPY [facility] Start: 12-14-2023 COLORECTAL CANCER SCREENING COLORECTAL CANCER SCREENING [facility] Start: 12-14-2023 Screening for malignant neoplasm of colon [facility] Start: 12-12-2023 End: 12-12-2023 Patient encounter procedure 12/12/2023 9:30 AM EDT Office Visit OB/Gynecology [address] [place] [address] Ana M Sotelo, AARON.REPORT CLERK [address] [place] [address] Annual OB/Gynecology Comment on above: Annual Start: 12-09-2023 End: 12-09-2023 ambulatory 12/09/2023 11:45 AM EDT [facility] [address] [address] Angie Roth, RD [address] [facility] [place] [address] post APC Gastroenterology Comment on above: post APC Start: 11-27-2023 End: 11-27-2023 ambulatory Gastroenterology Comment on above: post APC Start: 11-07-2023 Lipid screen Lipid screen [place], [place] Start: 11-06-2023 End: 11-06-2023 ambulatory Psychology Comment on above: APC post APC Start: 10-30-2023 End: 10-30-2023 Patient encounter procedure 10/30/2023 9:00 AM EDT Appointment Gastroenterology [address] [address] Micheal Thomas MD [address] [address] Class 3 severe obesity due to excess calories with serious comorbidity and body mass index (BMI) of 40.0 to 44.9 in adult (HCC) [E66.01, Z68.41] Gastroenterology Comment on above: Class 3 severe obesity due to excess lauren ories with serious comorbidity and body mass index (BMI) of 40.0 to 44.9 in adult (HCC) [E66.01, Z68.41] Start: 09-12-2023 End: 12-12-2023 25-hydroxyvitamin D3 [Mass/volume] in Serum or Plasma VITAMIN D 25 HYDROXY Lab Routine History of gastric bypass Vitamin D deficiency Complications of gastric bypass surgery Body mass index 40.0-44.9, adult (HCC) Hepatic steatosis Pre-op testing Expected: 09/12/2023, Expires: 12/12/2023 [facility] Work Phone: Comment on above: Expected: 09/12/2023, Expires: Start: 09-12-2023 End: 12-12-2023 ALBUMIN/CREAT RATIO RND UR ALBUMIN/CREAT RATIO RND UR Lab Routine History of gastric bypass Vitamin D deficiency Complications of gastric bypass surgery Body mass index 40.0-44.9, adult (HCC) Hepatic steatosis Pre-op testing Expected: 09/12/2023, Expires: 12/12/2023 [facility] Work Phone: Comment on above: Expected: 09/12/2023, Expires: Start: 09-12-2023 End: 12-12-2023 CBC W Auto Differential panel - Blood CBC + DIFF Lab Routine History of gastric bypass Vitamin D deficiency Complications of gastric bypass surgery Body mass index 40.0-44.9, adult (HCC) Hepatic steatosis Pre-op testing Expected: 09/12/2023, Expires: 12/12/2023 [facility] Work Phone: Comment on above: Expected: 09/12/2023, Expires: Start: 09-12-2023 End: 12-12-2023 Cobalamin (Vitamin B12) [Mass/volume] in Serum or Plasma VITAMIN B12 BLOOD Lab Routine History of gastric bypass Vitamin D deficiency Complications of gastric bypass surgery Body mass index 40.0-44.9, adult (HCC) Hepatic steatosis Pre-op testing Expected: 09/12/2023, Expires: 12/12/2023 [facility] Work Phone: Comment on above: Expected: 09/12/2023, Expires: Start: 09-12-2023 End: 12-12-2023 Comprehensive metabolic 2000 panel - Serum or Plasma COMP METABOLIC PANEL Lab Routine History of gastric bypass Vitamin D deficiency Complications of gastric bypass surgery Body mass index 40.0-44.9, adult (HCC) Hepatic steatosis Pre-op testing Expected: 09/12/2023, Expires: 12/12/2023 [facility] Work Phone: Comment on above: Expected: 09/12/2023, Expires: Start: 09-12-2023 End: 12-12-2023 Ferritin [Mass/volume] in Serum or Plasma FERRITIN BLD Lab Routine History of gastric bypass Vitamin D deficiency Complications of gastric bypass surgery Body mass index 40.0-44.9, adult (HCC) Hepatic steatosis Pre-op testing Expected: 09/12/2023, Expires: 12/12/2023 [facility] Work Phone: Comment on above: Expected: 09/12/2023, Expires: Start: 09-12-2023 End: 12-12-2023 Folate [Mass/volume] in Serum or Plasma FOLATE SERUM Lab Routine History of gastric bypass Vitamin D deficiency Complications of gastric bypass surgery Body mass index 40.0-44.9, adult (HCC) Hepatic steatosis Pre-op testing Expected: 09/12/2023, Expires: 12/12/2023 [facility] Work Phone: Comment on above: Expected: 09/12/2023, Expires: Start: 09-12-2023 End: 12-12-2023 Helicobacter pylori IgG Ab [Presence] in Serum or Plasma by Immunoassay H PYLORI IGG AB Lab Routine History of gastric bypass Vitamin D deficiency Complications of gastric bypass surgery Body mass index 40.0-44.9, adult (HCC) Hepatic steatosis Pre-op testing Expected: 09/12/2023, Expires: 12/12/2023 [facility] Work Phone: Comment on above: Expected: 09/12/2023, Expires: Start: 09-12-2023 End: 12-12-2023 Hemoglobin A1c in Blood HGB A1C Lab Routine History of gastric bypass Vitamin D deficiency Complications of gastric bypass surgery Body mass index 40.0-44.9, adult (HCC) Hepatic steatosis Pre-op testing Expected: 09/12/2023, Expires: 12/12/2023 [facility] Work Phone: Comment on above: Expected: 09/12/2023, Expires: Start: 09-12-2023 End: 12-12-2023 Insulin [Units/volume] in Serum or Plasma INSULIN ASSAY BLOOD Lab Routine History of gastric bypass Vitamin D deficiency Complications of gastric bypass surgery Body mass index 40.0-44.9, adult (HCC) Hepatic steatosis Pre-op testing Expected: 09/12/2023, Expires: 12/12/2023 [facility] Work Phone: Comment on above: Expected: 09/12/2023, Expires: Start: 09-12-2023 End: 12-12-2023 Iron and Iron binding capacity panel - Serum or Plasma IRON + TIBC Lab Routine History of gastric bypass Vitamin D deficiency Complications of gastric bypass surgery Body mass index 40.0-44.9, adult (HCC) Hepatic steatosis Pre-op testing Expected: 09/12/2023, Expires: 12/12/2023 [facility] Work Phone: Comment on above: Expected: 09/12/2023, Expires: Start: 09-12-2023 End: 12-12-2023 Lipid 1996 panel - Serum or Plasma LIPID PANEL BASIC Lab Routine History of gastric bypass Vitamin D deficiency Complications of gastric bypass surgery Body mass index 40.0-44.9, adult (HCC) Hepatic steatosis Pre-op testing Expected: 09/12/2023, Expires: 12/12/2023 [facility] Work Phone: Comment on above: Expected: 09/12/2023, Expires: Start: 09-12-2023 End: 12-12-2023 LIVER FIBROSIS AND ACTIVITY LIVER FIBROSIS AND ACTIVITY Lab Routine History of gastric bypass Vitamin D deficiency Complications of gastric bypass surgery Body mass index 40.0-44.9, adult (HCC) Hepatic steatosis Pre-op testing Expected: 09/12/2023, Expires: 12/12/2023 [facility] Work Phone: Comment on above: Expected: 09/12/2023, Expires: Start: 09-12-2023 End: 12-12-2023 Parathyrin.intact [Mass/volume] in Serum or Plasma PTH INTACT BLD Lab Routine History of gastric bypass Vitamin D deficiency Complications of gastric bypass surgery Body mass index 40.0-44.9, adult (HCC) Hepatic steatosis Pre-op testing Expected: 09/12/2023, Expires: 12/12/2023 [facility] Work Phone: Comment on above: Expected: 09/12/2023, Expires: Start: 09-12-2023 End: 12-12-2023 Protein [Mass/volume] in Urine PROTEIN RANDOM UR Lab Routine History of gastric bypass Vitamin D deficiency Complications of gastric bypass surgery Body mass index 40.0-44.9, adult (HCC) Hepatic steatosis Pre-op testing Expected: 09/12/2023, Expires: 12/12/2023 [facility] Work Phone: Comment on above: Expected: 09/12/2023, Expires: Start: 09-12-2023 End: 12-12-2023 PT panel - Platelet poor plasma by Coagulation assay PROTHROMBIN TIME Lab Routine History of gastric bypass Vitamin D deficiency Complications of gastric bypass surgery Body mass index 40.0-44.9, adult (HCC) Hepatic steatosis Pre-op testing Expected: 09/12/2023, Expires: 12/12/2023 [facility] Work Phone: Comment on above: Expected: 09/12/2023, Expires: Start: 09-12-2023 End: 12-12-2023 Retinol [Mass/volume] in Serum or Plasma VITAMIN A/RETINOL Lab Routine History of gastric bypass Vitamin D deficiency Complications of gastric bypass surgery Body mass index 40.0-44.9, adult (HCC) Hepatic steatosis Pre-op testing Expected: 09/12/2023, Expires: 12/12/2023 [facility] Work Phone: Comment on above: Expected: 09/12/2023, Expires: Start: 09-12-2023 End: 12-12-2023 TOX SCREEN ROUT UR TOX SCREEN ROUT UR Lab Routine History of gastric bypass Vitamin D deficiency Complications of gastric bypass surgery Body mass index 40.0-44.9, adult (HCC) Hepatic steatosis Pre-op testing Expected: 09/12/2023, Expires: 12/12/2023 [facility] Work Phone: Comment on above: Expected: 09/12/2023, Expires: Start: 09-12-2023 End: 12-12-2023 TYPE AND SCREEN,30 DAY TYPE AND SCREEN,30 DAY Blood Bank Routine History of gastric bypass Vitamin D deficiency Complications of gastric bypass surgery Body mass index 40.0-44.9, adult (HCC) Hepatic steatosis Pre-op testing Expected: 09/12/2023, Expires: 12/12/2023 [facility] Work Phone: Comment on above: Expected: 09/12/2023, Expires: Start: 09-12-2023 End: 12-12-2023 VITAMIN B1 (THIAMINE), WHOLE BLOOD VITAMIN B1 (THIAMINE), WHOLE BLOOD Lab Routine History of gastric bypass Vitamin D deficiency Complications of gastric bypass surgery Body mass index 40.0-44.9, adult (HCC) Hepatic steatosis Pre-op testing Expected: 09/12/2023, Expires: 12/12/2023 [facility] Work Phone: Comment on above: Expected: 09/12/2023, Expires: Start: 08-13-2023 Shingrix Vaccine (2 of 2) Shingrix Vaccine (2 of 2) [facility] Start: 06-18-2023 End: 06-18-2023 Clinical Support 06/18/2023 8:00 AM EST Clinical Support [facility] [address] [place] [address] [facility] Start: 05-21-2023 End: 05-21-2024 Ferritin [Mass/volume] in Serum or Plasma Ferritin Lab Routine Acquired iron deficiency anemia due to decreased absorption Expected: 05/21/2023 (Approximate), Expires: 05/21/2024 [facility] Work Phone: Comment on above: Expected: 05/21/2023 (Approximate), Expi res: 05/21/2024 Start: 05-21-2023 End: 05-21-2024 Iron and Iron binding capacity panel - Serum or Plasma Iron and TIBC Lab Routine Acquired iron deficiency anemia due to decreased absorption Expected: 05/21/2023 (Approximate), Expires: 05/21/2024 [facility] Comment on above: Expected: 05/21/2023 (Approximate), Expi res: 05/21/2024 Start: 05-21-2023 End: 05-21-2024 Transferrin [Mass/volume] in Serum or Plasma Transferrin Lab Routine Acquired iron deficiency anemia due to decreased absorption Expected: 05/21/2023 (Approximate), Expires: 05/21/2024 [facility] Comment on above: Expected: 05/21/2023 (Approximate), Expi res: 05/21/2024 Start: 05-15-2023 End: 05-15-2023 Patient encounter procedure [facility] Start: 05-14-2023 Depression Screening Depression Screening [facility] Start: 05-14-2023 Diabetes mellitus screening Diabetes Screening [facility] Start: 05-14-2023 Thyroid stimulating hormone measurement TSH Level [facility] Start: 05-12-2023 Behavioral Health Screening Behavioral Health Screening [facility] Start: 05-12-2023 Depression Assessment Depression Assessment [facility] Start: 01-10-2023 Covid-19 Vaccine ( season) Covid-19 Vaccine () [facility] Start: 01-10-2023 Influenza vaccination [facility] Start: 12-24-2022 Screening for malignant neoplasm of breast Mammogram [facility] Start: 12-12-2022 Screening for malignant neoplasm of breast Breast cancer screen [facility] Start: 06-30-2022 DIABETES SCREEN DIABETES SCREEN [facility] Start: 05-14-2022 End: 05-14-2023 25-hydroxyvitamin D3 [Mass/volume] in Serum or Plasma Vitamin D 25 hydroxy Lab Routine Well adult exam Expected: 05/14/2022 (Approximate), Expires: 05/14/2023 [facility] Comment on above: Expected: 05/14/2022 (Approximate), Expi res: 05/14/2023 Start: 05-14-2022 End: 05-14-2023 CBC panel - Blood by Automated count CBC Lab Routine Well adult exam Expected: 05/14/2022 (Approximate), Expires: 05/14/[address] [email or web address] Comment on above: Expected: 05/14/2022 (Approximate), Expi res: 05/14/2023 Start: 05-14-2022 End: 05-14-2023 Cobalamin (Vitamin B12) [Mass/volume] in Serum or Plasma Vitamin B12 Lab Routine Well adult exam Expected: 05/14/2022 (Approximate), Expires: 05/14/[address] [email or web address] Comment on above: Expected: 05/14/2022 (Approximate), Expi res: 05/14/2023 Start: 05-14-2022 End: 05-14-2023 Comprehensive metabolic 1998 panel - Serum or Plasma Comprehensive metabolic panel Lab Routine Well adult exam Expected: 05/14/2022 (Approximate), Expires: 05/14/[address] [email or web address] Comment on above: Expected: 05/14/2022 (Approximate), Expi res: 05/14/2023 Start: 05-14-2022 End: 05-14-2023 Hemoglobin A1c/Hemoglobin.total in Blood Hemoglobin A1c Lab Routine Well adult exam Expected: 05/14/2022 (Approximate), Expires: 05/14/[address] [email or web address] Comment on above: Expected: 05/14/2022 (Approximate), Expi res: 05/14/2023 Start: 05-14-2022 End: 05-14-2023 Hepatitis C virus Ab [Presence] in Serum or Plasma by Immunoassay Hepatitis C antibody Lab Routine Well adult exam Expected: 05/14/2022 (Approximate), Expires: 05/14/[address] [email or web address] Comment on above: Expected: 05/14/2022 (Approximate), Expi res: 05/14/2023 Start: 05-14-2022 End: 05-14-2023 HIV 1+2 Ab+HIV1 p24 Ag [Presence] in Serum or Plasma by Immunoassay HIV-1 and HIV-2 Antigen-Antibody Screen Lab Routine Well adult exam Expected: 05/14/2022 (Approximate), Expires: 05/14/[address] [email or web address] Comment on above: Expected: 05/14/2022 (Approximate), Expi res: 05/14/2023 Start: 05-14-2022 End: 05-14-2023 Iron and Iron binding capacity panel - Serum or Plasma Iron and TIBC Lab Routine Well adult exam Expected: 05/14/2022 (Approximate), Expires: 05/14/[address] [email or web address] Comment on above: Expected: 05/14/2022 (Approximate), Expi res: 05/14/2023 Start: 05-14-2022 End: 05-14-2023 Lipid 1996 panel - Serum or Plasma Lipid panel Lab Routine Well adult exam Expected: 05/14/2022 (Approximate), Expires: 05/14/[address] [email or web address] Comment on above: Expected: 05/14/2022 (Approximate), Expi res: 05/14/2023 Start: 05-14-2022 End: 05-14-2023 Thyrotropin [Units/volume] in Serum or Plasma TSH Lab Routine Well adult exam Expected: 05/14/2022 (Approximate), Expires: 05/14/[address] [facility] [email or web address] [facility] Work Phone: Comment on above: Expected: 05/14/2022 (Approximate), Expi res: 05/14/2023 Start: 05-12-2022 DEPRESSION ASSESSMENT DEPRESSION ASSESSMENT [facility] Start: 04-26-2022 COVID-19 VACCINE (4 - Booster for Pfizer series) COVID-19 VACCINE (4 - Booster for Pfizer series) [facility] Start: 02-15-2022 End: 04-17-2022 Cobalamin (Vitamin B12) [Mass/volume] in Serum or Plasma VITAMIN B12 BLOOD Lab Routine S/P gastric bypass Class 3 severe obesity due to excess calories without serious comorbidity with body mass index (BMI) of 40.0 to 44.9 in adult ([facility]) Expected: 02/15/2022, Expires: 04/17/2022 [facility] Work Phone: Comment on above: Expected: 02/15/2022, Expires: 2 Start: 02-15-2022 End: 04-17-2022 Folate [Mass/volume] in Serum or Plasma FOLATE SERUM Lab Routine S/P gastric bypass Class 3 severe obesity due to excess calories without serious comorbidity with body mass index (BMI) of 40.0 to 44.9 in adult ([facility]) Expected: 02/15/2022, Expires: 04/17/2022 [facility] Work Phone: Comment on above: Expected: 02/15/2022, Expires: 2 Start: 02-15-2022 End: 04-17-2022 Hemoglobin A1c in Blood HGB A1C Lab Routine S/P gastric bypass Class 3 severe obesity due to excess calories without serious comorbidity with body mass index (BMI) of 40.0 to 44.9 in adult ([facility]) Expected: 02/15/2022, Expires: 04/17/2022 [facility] Work Phone: Comment on above: Expected: 02/15/2022, Expires: 2 Start: 02-15-2022 End: 04-17-2022 Parathyrin.intact [Mass/volume] in Serum or Plasma PTH INTACT BLD Lab Routine S/P gastric bypass Class 3 severe obesity due to excess calories without serious comorbidity with body mass index (BMI) of 40.0 to 44.9 in adult ([facility]) Expected: 02/15/2022, Expires: 04/17/2022 [facility] Work Phone: Comment on above: Expected: 02/15/2022, Expires: 2 Start: 02-15-2022 End: 04-17-2022 VITAMIN B1 (THIAMINE), WHOLE BLOOD VITAMIN B1 (THIAMINE), WHOLE BLOOD Lab Routine S/P gastric bypass Class 3 severe obesity due to excess calories without serious comorbidity with body mass index (BMI) of 40.0 to 44.9 in adult (HCC) Expected: 02/15/2022, Expires: 04/17/2022 [facility] Work Phone: Comment on above: Expected: 02/15/2022, Expires: Start: 01-20-2022 Screening for malignant neoplasm of colon [facility] Start: 01-10-2022 Influenza vaccination [facility] Start: 12-17-2021 End: 12-17-2021 Patient encounter procedure 12/17/2021 Office Visit Family Medicine Demetri Arnold MD [address] [place] [address] [facility] Start: 12-13-2021 Depression Screen Depression Screen [facility] Start: 12-13-2021 Hepatitis C screening Hepatitis C screen [facility] Comment on above: Postponed from 07/30/1989 (Patient Refus ed) Start: 12-13-2021 HIV screening HIV screen [facility] Comment on above: Postponed from 07/30/1986 (Patient Refus ed) Start: 10-16-2021 COVID-19 Vaccine (3 - Booster for Pfizer series) COVID-19 Vaccine (3 - Booster for Pfizer series) [facility] Start: 07-30-2021 Pneumococcal Vaccine: 50+ (1 of 1 - PCV) Pneumococcal Vaccine: 50+ (1 of 1 - PCV) [facility] Start: 07-30-2021 Pneumococcal Vaccine: 50+ Years (1 of 1 - PCV) Pneumococcal Vaccine: 50+ Years (1 of 1 - PCV) [facility] Start: 07-30-2021 Shingles Vaccine (1 of 2) Shingles Vaccine (1 of 2) [facility] Start: 07-30-2021 SHINGRIX VACCINE (1 of 2) SHINGRIX VACCINE (1 of 2) [facility] Start: 07-30-2021 Zoster Vaccines (1 of 2) Zoster Vaccines (1 of 2) [facility] Start: 06-15-2021 COVID-19 VACCINE (3 - Pfizer risk 4-dose series) COVID-19 VACCINE (3 - Pfizer risk 4-dose series) [facility] Start: 06-15-2021 COVID-19 VACCINE (3 - Pfizer risk series) COVID-19 VACCINE (3 - Pfizer risk series) [facility] Start: 05-12-2021 DEPRESSION ASSESSMENT DEPRESSION ASSESSMENT [facility] Start: 01-10-2021 Influenza vaccination [facility] Start: 11-16-2019 End: 11-16-2019 Office Visit 11/16/2019 Office Visit Family Medicine Ryann Warner, PA [address] [place] [address] [phone] [facility] Start: 11-07-2019 TSH testing TSH testing [place], [place] Start: 12-16-2017 Mammography MAMMOGRAM [facility] Start: 07-30-2016 COLOGUARD (FIT-DNA) COLOGUARD (FIT-DNA) [facility] Start: 07-30-2016 Colonoscopy COLONOSCOPY [facility] Start: 07-30-2016 COLORECTAL CANCER SCREENING COLORECTAL CANCER SCREENING [facility] Start: 07-30-[address] COLONOGRAPHY [facility] Start: 07-30-2016 FECAL OCCULT BLOOD FECAL OCCULT BLOOD [facility] Start: 07-30-2016 LIPID SCREEN LIPID SCREEN [facility] Start: 07-30-2016 Screening for malignant neoplasm of colon [facility] Start: 07-30-2016 SIGMOIDOSCOPY SIGMOIDOSCOPY [facility] Start: 2011 Screening for malignant neoplasm of breast Mammogram [facility] Start: 07-30-1990 SHINGRIX VACCINE (1 of 2) SHINGRIX VACCINE (1 of 2) [facility] Start: 07-30-1990 Urine microalbumin profile [facility] Start: 07-30-1989 ANNUAL PCP TEAM CHRONIC DISEASE VISIT ANNUAL PCP TEAM CHRONIC DISEASE VISIT [facility] Start: 07-30-1989 Anxiety Screening Anxiety Screening [facility] Start: 07-30-1989 Depression Screening Depression Screening [facility] Start: 07-30-1989 Diabetes mellitus screening Diabetes Screening [facility] Start: 07-30-1989 Hepatitis C screening Hepatitis C Screening [facility] Start: 07-30-1989 HEPATITIS C SCREENING HEPATITIS C SCREENING [facility] Start: 07-30-1989 HIV SCREENING HIV SCREENING [facility] Start: 07-30-1989 HIV screening HIV Screening [facility] Start: 07-30-1986 HIV screen HIV screen [place], [place] Start: 07-30-1986 HIV screening HIV Screening [facility] Start: 1983 Depression screening using PHQ-9 (Patient Health Questionnaire 9) score [facility] Start: 07-30-1982 DTaP/Tdap/Td vaccine (6 - Tdap) DTaP/Tdap/Td vaccine (6 - Tdap) [place], [place] Start: 07-30-1977 PNEUMOCOCCAL (1 - PCV) PNEUMOCOCCAL (1 - PCV) [facility] Start: 07-30-1974 History and physical examination, annual for health maintenance Wellness Visit [facility] Start: 1971 HEPATITIS B (1 of 3 - 3-dose series) HEPATITIS B (1 of 3 - 3-dose series) [facility] Start: 1971 Hepatitis B Vaccine (1 of 3 - 3-dose series) Hepatitis B Vaccine (1 of 3 - 3-dose series) [facility] Start: 1971 HIV screening HIV Screening [facility] Start: 1971 Screening for malignant neoplasm of cervix Pap Smear [facility] Start: 1971 Screening for malignant neoplasm of colon [facility] Start: 1971 Thyroid stimulating hormone measurement TSH Level [facility] End: 01-26-2026 DBT Breast - bilateral screening THIEN SCREENING W [facility]HEL[facility] Radiology Routine Breast screening 1 Occurrences starting 12/27/2024 until 01/26/2026 [facility] Work Phone: Comment on above: 1 Occurrences starting 12/27/2024 until 01/26/2026 DDI VIBRATION CONTROLLED TRANSIENT ELASTOGRAPHY (VCTE) DDI VIBRATION CONTROLLED TRANSIENT ELASTOGRAPHY (VCTE) Endoscopy Routine Class 3 severe obesity due to excess calories with serious comorbidity and body mass index (BMI) of 40.0 to 44.9 in adult (HCC) Ordered: 02/20/2023 [facility] Work Phone: Comment on above: Ordered: 02/20/2023 End: 03-06-2023 EGD BARIATRIC EGD BARIATRIC Endoscopy Routine Complications of bariatric procedures History of Armijo's esophagus 1 Occurrences starting 03/06/2022 until 03/06/2023 [facility] Work Phone: Comment on above: 1 Occurrences starting 03/06/2022 until 03/06/2023 End: 07-17-2024 EGD BARIATRIC EGD BARIATRIC Endoscopy Routine Class 3 severe obesity due to excess calories with serious comorbidity and body mass index (BMI) of 40.0 to 44.9 in adult (HCC) Complications of gastric bypass surgery 1 Occurrences starting 07/18/2023 until 07/17/2024 [facility] Work Phone: Comment on above: 1 Occurrences starting 07/18/2023 until 07/17/2024 End: 06-14-2025 EGD BARIATRIC EGD BARIATRIC Endoscopy Routine Complications of gastric bypass surgery History of gastric bypass Hepatic steatosis Class 1 obesity due to excess calories with body mass index (BMI) of 33.0 to 33.9 in adult, unspecified whether serious comorbidity present Impaired intestinal absorption 1 Occurrences starting 06/14/2024 until 06/14/2025 [facility] Comment on above: 1 Occurrences starting 06/14/2024 until 06/14/2025 End: 07-13-2023 ENDOSCOPIC GASTRIC BYPASS REPAIR (EGBR) ENDOSCOPIC GASTRIC BYPASS REPAIR (EGBR) Endoscopy Routine Complications of bariatric procedures Morbid obesity (HCC) 1 Occurrences starting 07/12/2022 until 07/13/2023 [facility] Work Phone: Comment on above: 1 Occurrences starting 07/12/2022 until 07/13/2023 Liver ultrasound attenuation by transient elastography DDI VIBRATION CONTROLLED TRANSIENT ELASTOGRAPHY (VCTE) Endoscopy Routine History of gastric bypass Vitamin D deficiency Complications of gastric bypass surgery Body mass index 40.0-44.9, adult (HCC) Hepatic steatosis Pre-op testing Ordered: 08/13/2023 [facility] Work Phone: Comment on above: Ordered: 08/13/2023 Liver ultrasound attenuation by transient elastography DDI VIBRATION CONTROLLED TRANSIENT ELASTOGRAPHY (VCTE) Endoscopy Routine Steatosis (HCC) Ordered: 01/22/2024 [facility] Comment on above: Ordered: 01/22/2024 SURGICAL PATHOLOGY [facility] Work Phone: Comment on above: Release Upon Ordering for 1 Occurrences starting 07/05/2022, 1 completed VIBRATION CONTROLLED TRANSIENT ELASTOGRAPHY (POC) VIBRATION CONTROLLED TRANSIENT ELASTOGRAPHY (POC) Imaging Diagnostic Routine Class 3 severe obesity due to excess calories with serious comorbidity and body mass index (BMI) of 40.0 to 44.9 in adult (HCC) Ordered: 03/25/2023 [facility] Work Phone: Comment on above: Ordered: 03/25/2023 [facility] Immunizations Immunization Date Immunization Notes Care Provider Fa [facility] 03-24-2024 influenza virus vaccine, unspecified formulation Demetri Arnold MD Work Phone: [facility] 02-10-2024 influenza virus vaccine, unspecified formulation Demetri Arnold MD Work Phone: [facility] 08-27-2023 zoster vaccine recombinant Manish Vazquez MD Work Phone: [facility] 06-18-2023 zoster vaccine recombinant Manish Vazquez MD Work Phone: [facility] 01-21-2023 influenza, seasonal, injectable Beryl Auguste MA [facility] 01-21-2023 influenza virus vaccine, unspecified formulation Maranda Paci 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.REPORT CLERK Work Phone: [facility] 02-18-2022 influenza, seasonal, injectable Demetri Arnold MD Work Phone: [facility] 02-18-2022 influenza virus vaccine, unspecified formulation Maranda Paci 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.REPORT CLERK Work Phone: [facility] 05-18-2021 Pfizer SARS-CoV-2 Vaccination Demetri Arnold MD Work Phone: [facility] 07-27-2020 Pfizer SARS-CoV-2 Vaccination Demetri Arnold MD Work Phone: [facility] 02-14-2020 Seasonal, quadrivale nt, recombinant, injectable influenza vaccine, preservative free Demetri Arnold MD Work Phone: [facility] 01-14-2020 tetanus toxoid, redu anny diphtheria toxoid, and acellular pertussis vaccine, adsorbed Manish Vazquez MD Work Phone: [facility] 02-09-2019 influenza virus vaccine, unspecified formulation Demetri Arnold [facility] Work Phone: 12-18-2017 hepatitis A vaccine, adult dosage [facility] [place] 06-20-2017 hepatitis A vaccine, adult dosage [facility] 06-20-2017 typhoid vaccine, jhonny e, oral [facility] 03-19-2017 influenza, seasonal, injectable [facility] Work Phone: 03-02-2017 Influenza Vaccine, unspecified formulation [facility] [place] 03-02-2017 influenza virus vaccine, unspecified formulation [facility] 03-02-2017 influenza, seasonal, injectable Demetri Arnold MD Work Phone: [facility] 05-12-2016 tetanus toxoid, redu anny diphtheria toxoid, and acellular pertussis vaccine, adsorbed Norma Woo MD Work Phone: [facility] Work Phone: 02-09-2015 influenza, seasonal, injectable [facility] Work Phone: 02-17-2014 influenza, seasonal, injectable [facility] Work Phone: 03-11-2013 Influenza virus vaccine [facility] [place] 03-11-2013 influenza, seasonal, injectable Manish Vazquez MD Work Phone: [facility] 11-20-2009 hepatitis B vaccine, adult dosage Manish Vazquez MD Work Phone: [facility] 04-10-2009 novel [id number], preservative-free, injectable [facility] 06-10-2007 hepatitis B vaccine, adult dosage Manish Vazquez MD Work Phone: [facility] 06-10-2007 hepatitis B vaccine, pediatric or pediatric/adolescent dosage [facility] 06-10-2007 hepatitis B vaccine, unspecified formulation [facility] [place] 02-13-2007 varicella virus vaccine [facility] 01-02-2007 hepatitis B vaccine, pediatric or pediatric/adolescent dosage [facility] 01-02-2007 hepatitis B vaccine, unspecified formulation [facility] [place] 01-02-2007 varicella virus vaccine [facility] 12-02-2006 hepatitis B vaccine, adult dosage Manish Vazquez MD Work Phone: [facility] 12-02-2006 hepatitis B vaccine, pediatric or pediatric/adolescent dosage [facility] 12-02-2006 hepatitis B vaccine, unspecified formulation [facility] 03-16-2003 varicella virus vaccine [facility] 12-08-2000 varicella virus vaccine [facility] 10-02-1976 diphtheria, tetanus toxoids and acellular pertussis vaccine [facility] 10-02-1976 diphtheria, tetanus toxoids and acellular pertussis vaccine, unspecified formulation [facility] [place] 10-02-1976 poliovirus vaccine, inactivated [facility], [place] 03-05-1973 diphtheria, tetanus toxoids and acellular pertussis vaccine [facility] 03-05-1973 diphtheria, tetanus toxoids and acellular pertussis vaccine, unspecified formulation [facility] [place] 03-05-1973 poliovirus vaccine, inactivated [facility] 01-02-1973 measles, mumps and rubella virus vaccine [facility] 10-07-1972 measles, mumps and rubella virus vaccine [facility] 07-07-1972 poliovirus vaccine, inactivated [facility] 02-25-1972 diphtheria, tetanus toxoids and acellular pertussis vaccine [facility] 02-25-1972 diphtheria, tetanus toxoids and acellular pertussis vaccine, unspecified formulation [facility] [place] 02-25-1972 poliovirus vaccine, inactivated [facility], [place] 1971 diphtheria, tetanus toxoids and acellular pertussis vaccine [facility], [place] 1971 diphtheria, tetanus toxoids and acellular pertussis vaccine, unspecified formulation [facility] , [place] 1971 diphtheria, tetanus toxoids and acellular pertussis vaccine [facility], [place] 1971 diphtheria, tetanus toxoids and acellular pertussis vaccine, unspecified formulation [facility] , [place] 1971 poliovirus vaccine, inactivated [facility] Payers Date Payer Category Payer Self-pay [id number] [facility] [id number] 2024 Unknown [id number] 2021 Unknown [facility] [id number] 2021-Present [phone] [address] [address] [place] [address] [id number] 2021 Commercial Managed C are - HMO MMO SUPERMED Member Subscriber Plan / Payer (Effective 2021-Present) Name: Melissa Nichols Relation to Subscriber: Self Name: Melissa Nichols Payer ID: Not on file Type: Commercial Address: [address] [place] [id number] 2020 Private Health Insurance MMO SUP ERMED PPO Member Subscriber Plan / Payer (Effective 2020-Present) Name: Melissa Nichols Relation to Subscriber: Self Name: Melissa Nichols Payer ID: Not on file Type: PPO Address: [address] [place] [id number] 2020 Unknown 2020 Unknown MMO MMO SUPERMED PLUS [id number] 2020-Present [phone] [address] [place] [address] PPO [id number] 2016 Unknown [employer]ICAL [employer] M [employer] M[employer]UAL [address] xxxxxxxxxxxx 2016-Present [phone] [address] [place] [address] xxxxxxxxxxxx [id number] 1971 Unknown [id number] 1971 Unknown [id number] 1971 Unknown [id number] 1971 Unknown [id number] 1971 Unknown [id number] 1959 Unknown [id number] Unknown [id number] Social History Date Type Detail Facility Start: 07-06-2019 End: 10-16-2023 Tobacco smoking status NHIS Never smoker [place] Start: 07-06-2019 End: 05-21-2023 Alcohol intake Ex-drinker (finding) [place] Start: 11-09-2018 End: 05-14-2022 History SDOH Alcohol Frequency 2 [place] Start: 11-09-2018 End: 05-14-2022 History SDOH Alcohol Std Drinks 1 [place] Start: 11-09-2018 History SDOH Alcohol Binge 98 [place] Start: 11-09-2018 End: 05-14-2022 History SDOH Social Connections Phone 5 [place] Start: 11-09-2018 History SDOH Social Connections Get Together 4 [place] Start: 11-09-2018 End: 05-14-2022 History SDOH Social Connections [facility] 3 [place] Start: 1970 Sex Assigned At Not on file M [place] Start: 02-09-2021 End: 02-09-2021 Tobacco smoking consumption unknown [facility] Start: 06-26-2021 Tobacco use and exposure Former smokeless tobacco user [facility] Start: 07-28-2021 End: 07-04-2022 Exposure to SARS-CoV-2 (event) Not sure [facility] Start: 07-18-2012 End: 10-16-2023 Tobacco use and exposure Smokeless tobacco non-user [facility] Work Phone: Start: 12-04-2020 End: 12-17-2024 Alcohol intake Current non-drinker of alcohol (finding) [facility] Start: 1970 Sex Assigned At Female C [facility] Start: 05-14-2022 History SDOH Alcohol Std Drinks 0 [facility] Start: 05-14-2022 End: 12-10-2022 History of Social function [facility] Start: 05-14-2022 End: 12-10-2022 Humiliation, Afraid, Rape, and Kick questionnaire [HARK] [facility] Within the last year , have you been afraid of your partner or ex-partner? No [facility] Do you belong to any clubs or organizations such as anabaptism groups, unions, fraternal or athletic groups, or school groups? Yes [facility] Are you now , , , , never or living with a partner? [facility] How often to you hav e a drink containing alcohol? Never [facility] Start: 04-12-2012 How many standard drinks containing alcohol do you have on a typical day? Patient does not drink [facility] Do you feel stress - tense, restless, nervous, or anxious, or unable to sleep at night because your mind is troubled all the time - these days [OSQ] Not at all [facility] (I/We) worried wheth er (my/our) food would run out before (I/we) got money to buy more. Never true [facility] Start: 08-02-2021 Gender identity Identifies as female gender (finding) [facility] Start: 08-02-2021 Sexual orientation Heterosexual (fin dorothy) [facility] Do you feel stress - tense, restless, nervous, or anxious, or unable to sleep at night because your mind is troubled all the time - these days [OSQ] Only a little [facility] Start: 12-10-2021 Sex Female (finding) [facility] Start: 06-11-2024 Alcoholic beverage intake Lifetime non-drinker (finding) [facility] NEGATED: Highlighted rowStart: BEREKETF History of tobacco use Passive smoker [facility] Functional Status Date Assessment Result Facility 07-14-2024 Liver fibr score Ser Pl Calc.FibroSure 0.14 [facility] Comment on above: Order Comment: Speci men Type: BLOOD SPECIMENOrdering Facility: [facility] Address: [address] [place] [address] Performed By: #### L IVFIB ####[facility] [id number] [address] 07-14-2024 Necroinflammatory ac t score SerPl 0.17 [facility] Comment on above: Order Comment: Speci men Type: BLOOD SPECIMENOrdering Facility: [facility] Address: [address] [place] [address] Performed By: #### L IVFIB ####[facility] [id number] [address] STATES OF [facility] 11-28-2014 Are you deaf, or do you have serious difficulty hearing No 11/28/2014 2:10 PM LAVELLT Sisi Sethi LPN No [facility] 11-28-2014 Are you blind, or do you have serious difficulty seeing, even when wearing glasses No 11/28/2014 2:10 PM LAVELLT Sisi Sethi LPN No [facility] 11-28-2014 Do you have serious difficulty walking or climbing stairs No 11/28/2014 2:10 PM LAVELLT Sisi Sethi LPN No [facility] 11-28-2014 Do you have difficul ty dressing or bathing No 11/28/2014 2:10 PM Sisi Mccabe LPN No [facility] 11-28-2014 Because of a physica l, mental, or emotional condition, do you have difficulty doing errands alone such as visiting a physician's office or shopping No 11/28/2014 2:10 PM Sisi Mccabe LPN No [facility] Mental Status Date Assessment Result Facility 11-28-2014 Because of a physica l, mental, or emotional condition, do you have serious difficulty concentrating, remembering, or making decisions No 11/28/2014 2:10 PM EDT Sisi Sethi LPN No [facility] Clinical Notes 08-18-2013 to 12-27-2024 Telephone Encounter - Cisco Erwin RN - 12/27/2024 2:51 PM EDTTelephone Encounter - Cisco Erwin RN - 12/27/2024 2:51 PM EDTTelephone Encounter - Ana M Sotelo APRN.CNP - 12/27/2024 2:39 PM EDT Note Date & Type Note Facility 12-27-2024 Telephone encounter Note Order printed and faxed. Cisco Erwin RN [facility] 12-27-2024 Miscellaneous Notes Order printed and faxed. Cisco Erwin RN I signed one last week and fax it, will do again. Ana M Sotelo APRN.WALKER Pt is scheduled for B/L screening mammogram at [facility] 01/07/25. [facility] mammography calling for order. Please file and will fax to [facility]. Cisco Erwin RN documented in this encounter [facility] 12-27-2024 Telephone encounter Note I signed one last week and fax it, will do again. Ana M Sotelo APRN.CNP [facility] 12-27-2024 Telephone encounter Note Pt is scheduled for B/L screening mammogram at [facility] 01/07/25. [facility] mammography calling for order. Please file and will fax to [facility]. Cisco Erwin RN [facility] 12-17-2024 Note HNO ID: [id number] Author: ANA M SOTELO APRN.CNP Service: ? 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 Postmenopausal: Yes-hysterectomy HRT use: No. Last Pap: 07/27/2012 normal HPV: 07/21/2012 negative History of abnormal pap: Yes Last mammogram: 2023 normal @[facility] History of abnormal mammogram: No OB History Gravida3 Para2 Term0 Preterm0 AB1 Living2 SAB1 IAB0 Ectopic0 Multiple0 Live Births0 Mental Health Clinician History LMP: 09/03/2013, Hysterectomy Age at Menarche: 12 Age at First : Age at Menopause: Mental Health Clinician History Comments: Sexual Activity: Not Currently; Female, Male; Hysterectomy Contraception: Tubal Ligation PAST MEDICAL HISTORY Diagnosis Date Broken ankle Right ankle no surgery Hypothyroidism Melanoma (HCC) Pneumonia 11/25/2018 PAST SURGICAL HISTORY Procedure Laterality Date DILATION AND CURETTAGE DXAND/THER NONOBSTETRIC 08/05/2013 Polypectomy EGD BARIATRIC 10/2023 EGD W/O BRSH SPEC VARICIES INJ 11/05/2023 ENDOVENOUS LASER, 1ST VEIN 07/22, 12/22, 03/24 [address] Linton GASTRIC BYPASS HX 2005 HYSTERECTOMY HX KNEE SURGERY HX Right 11/10/2019 ACL/MCL/Miniscus LIG/TRNSXJ FLP TUBE ABDL/VAG APPR UNI/BI 2009 MELANOMA OF SKIN BIOPSY SYN RPT MELANOMA OF SKIN EXCISION SYN RPT REPAIR UMBILICAL HERNIA 2002, 2003 mesh SKIN BIOPSY HX FAMILY HISTORY Problem Relation Age of Onset Stroke Mother 42 DVT Mother other (CHF) Mother other (Bipolar Disorder) Mother dx after stroke Alcohol/Drug Father alcohol Diabetes Father Hypertension Father Cancer Father liver and pancreatic Hypertension Sister DVT Sister Rectal Cancer Brother COPD Brother Alcohol abuse Brother Hypertension Maternal Grandmother Hyperlipidemia Maternal Grandmother COPD Maternal Grandmother Diabetes Paternal Grandmother Kidney failure Paternal Grandmother Diabetes Paternal Grandfather No Known Problems Daughter No Known Problems Daughter SOCIAL HISTORY Social History Tobacco Use Smoking status: Never Passive exposure: Never Smokeless tobacco: Never Vaping Use Vaping status: Never Used Substance Use Topics Alcohol use: No Drug use: No REVIEW OF SYSTEMS Abdomen: No abdominal pain, nausea, vomiting, diarrhea, or constipation. No bloating, early satiety, indigestion, or increased flatulence. Bladder: No dysuria, gross hematuria, urinary frequency, urinary urgency, or incontinence Breast: No breast lumps, nipple d/c, overlying skin changes, redness or skin retraction Allergies and current medication updated:Yes SENSITIVE EXAM: The sensitive examination was discussed with the Patient or Patient's Authorized Route Process Administrator. As applicable, any other physician, advance practice provider, medical student, or other health professional student that will be observing or involved in the sensitive examination for educational or training purposes was discussed with the Patient or Authorized Route Process Administrator. The Patient or Authorized Route Process Administrator has agreed to proceed with the sensitive examination. (Sensitive examination includes inspection and/or palpation of the breasts, pelvis, prostate and anorectal regions). EXAM: BP 126/74 Wt 167 lb 12.8 oz (76.1kg) LMP 09/03/2013 GENERAL: pleasant, female in no apparent distress HEENT: Normocephalic, atraumatic, mucus membranes moist, and no lesions DERMATOLOGY: Normal, without lesions, non-icteric, and non-hirsute BREAST: soft, non-tender, symmetric, no dominant mass, normal nipple-areolar complex, no lymphadenopathy, and no nipple discharge CHEST: Normal inspiratory effort ABDOMEN: soft, non-tender, and no masses PELVIC: external genitalia normal, normal Bartholin's glands, urethra, [place]'s glands, no vulvar lesions, physiologic discharge present, normal appearing perineal body and perianal region, cervix surgically absent BIMANUAL: no adnexal masses, non-tender, and uterus surgically absent RECTOVAGINAL: deferred. NEURO: alert and oriented x3,exam grossly non-focal EXTREMITIES: normal ASSESSMENT/PLAN: 1) Health maintenance: Pap/HPV screening no longer needed Mammogram ordered @[facility] Nutrition, exercise and routine health maintenance exams reviewed. Calcium/Vitamin D supplementation information provided. Colon cancer screening: up to date with screening BMD: up to date 2) Follow up one year or sooner as needed Ana M Sotelo APRN.WALKER [facility] 10-20-2024 History of Present illness Narrative Images from the original note were not included. Demetri Arnold DO [address] [facility] [place] [address] GI/Bariatric Endoscopy Clinic Visit Gastroenterology, Hepatology, and Nutrition Department ?[facility] ? 10/20/2024 ? The patient encounter is a virtual/telephone visit today, 10/20/2024, in lieu of an office visit due to the current ID- pandemic crisis and need for social distancing. Reason for Visit: Complications of bariatric surgery s/p RYGB c/b weight gain, s/p APC revision s/p TORe revision (3 months out) obesity class I and weight management. Patient is: Established patient Location of Provider: Hospital Location of Patient: Home Consent for virtual care, including informing the patient that insurance will be billed, and that in-person care is available in case of emergencies or as needed otherwise, was discussed at the time of scheduling. Dear Demetri Arnold DO, ? I had the pleasure of seeing Melissa Nichols in the [facility] GI/Bariatric Endoscopy Clinic for complications of bariatric surgery s/p RYGB c/b weight gain, s/p APC revision, s/p 3 months post TORe revision, obesity class I and weight management. ?? The patient is a 54 year old female with past medical history as below presenting to us with complications of bariatric surgery s/p RYGB c/b weight gain, s/p APC revision s/p 3 months post TORe revision, obesity class I and weight management. Interval History: The patient is a 54-year-old female presenting for a three-month post procedure follow-up after a endoscopic gastric bypass revision (TORe) performed on 07/28 and hx of APC revision on 10/30/2023. She reports feeling well overall, with no ongoing nausea, vomiting, abdominal pain, constipation, reflux or diarrhea. She describes two isolated episodes of vomiting earlier on post procedure, both of which she attributes to eating too quickly and not chewing thoroughly. One episode occurred after eating shrimp for the first time post procedure, and she is uncertain whether the texture or inadequate chewing was responsible. She has not retried shrimp since that episode. She denies any current or recent heartburn, reflux, or gastritis symptoms, noting that these issues resolved after her initial bariatric surgery several years ago and have not recurred. Currently on omeprazole twice a day, and a chewable bariatric multivitamin. She has not resumed her weekly vitamin D supplement since procedure but is considering restarting it last vitamin D was normal can repeat lab prior to restarting vitamin D. She is nearly out of her current chewable bariatric multivitamin and is interested in switching to a capsule or a standard women s multivitamin [id number], and she understands the need to supplement with calcium citrate if she does so. Regarding weight management, she reports her weight is stable at 160 pounds, though she has dropped a clothing size and attributes this to increased muscle mass from regular exercise. She engages in home workouts using a rowing machine and free weights, and walks her dog two miles at least five days per week, sometimes six. She is down at least nine pounds since her last visit. She rates her energy as good and generally sleeps well, though her sleep has been disrupted recently due to her dog s altered routine. She denies fevers, chills, night sweats, chest pain, shortness of breath, skin issues, rashes, itching, or vision problems. She notes that her appetite is generally good, though she continues to experience evening cravings for sweets. She has begun preparing sugar-free desserts, such as sugar-free Jell-O, to help manage these cravings. 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 She is working on adjusting her meal planning to accommodate her new routine. She denies waking at night snacking or eating. She reports prior use of appetite and weight management medications, including phentermine-fen (years ago), topiramate (with side effects of nausea or not feeling well from topiramate) and Wellbutrin (without perceived benefit). She has never tried phentermine alone. (07/14) Vitamin D level: Normal FibroScan: Normal, indicating no hepatic steatosis Anthropometrics Weight History Weight Change Height 5 ft 1.22 in Current Weight BMI 160 lbs 30 Initial Program Weight BMI 231 lbs 42 -71 lbs Procedure Weight BMI 216 lbs (BMI 39) APC 186 lbs (BMI 35) TORe 32 %TWL 14% TWL from TORe wght Last Visit Weight 169 lbs -9 lbs Non-Scale Progress (1 is low and 10 is high) 1 2 3 4 5 6 7 8 9 10 Energy [] [] [] [] [] [] [] [x] [] [] Sleep [] [] [] [] [] [x] [] [] [] [] Looser Fitting Clothing (1 is tight and 10 is baggy) [] [] [] [] [] [] [] [] [] [x] Daily Movement [] [] [] [] [x] [] [] [] [] [] Physical Fitness [] [] [] [] [] [] [x] [] [] [] Appetite/Hunger (1 is low hunger/ 10 is high hunger) [] [] [] [] [x] [] [] [] [] [] Cravings (1 is no cravings/ 10 is frequent cravings) [] [] [] [] [x] [] [] [] [] [] Physical Pain (1 is no pain/ 10 is worst pain) [x] [] [] [] [] [] [] [] [] [] 24 hrs Diet recall: See dietitian last note Wakes up to eat: No Current Exercise Activity: Home exercises cardio and strength training Weight History: Pre-RYGB weight: 280 lbs (BMI 51.2). Post-RYGB ava: 160 lbs (BMI 29.3). Ht 154.9 cm (5' 1) Wt 72.6 kg (160 lb) LMP 09/03/2013 BMI 30.23 kg/m Goal weight BMI < 27: 162.3 Goal weight BMI < 30: 180.3 Last 5 Encounter Wt Readings: Date: Wt: 09/09/2024 75.3 kg (166 lb) 09/06/2024 75.8 kg (167 lb) 08/27/2024 76.7 kg (169 lb) 08/04/2024 80.3 kg (177 lb) 07/28/2024 84.4 kg (186 lb) Risk factors: Tobacco use: No EtOH intake: Rare social NSAIDs: No H. Pylori: No (EGD 2003 prior showed barretts repeat EGD normal) FH:No, brother recently diagnosed with rectal cancer and father with liver and pancreatic ca PH: No Relevant Medications: Phen fin in the past Topamax SE of nausea, not feeling well Wellbutrin in the past Omeprazole 40 mg BID Vitamins/Minerals Supplements: - Multivitamin bariatric fusion Relevant Bariatric Procedures/Surgeries Bariatric Surgeon: Jacek at [facility] Bariatric Surgery: 2004 Abisai-en-Y Gastric Bypass (RYGB APC on 10/30/23; TORe procedure 07/27/24 Past Medical History: PAST MEDICAL HISTORY Diagnosis Date Broken ankle Right ankle no surgery Hypothyroidism Melanoma (HCC) Pneumonia 11/25/2018 Past Surgical History: PAST SURGICAL HISTORY Procedure Laterality Date DILATION & CURETTAGE DX&/THER NONOBSTETRIC 08/05/2013 Polypectomy EGD BARIATRIC 10/2023 EGD W/O BRSH SPEC VARICIES INJ 11/05/2023 ENDOVENOUS LASER, 1ST VEIN 07/22, 12/22, 03/24 [address]SS[address] Linton GASTRIC BYPASS HX 2005 HYSTERECTOMY HX KNEE SURGERY HX Right 11/10/2019 ACL/MCL/Miniscus LIG/TRNSXJ FLP TUBE ABDL/VAG APPR UNI/BI 2010 MELANOMA OF SKIN BIOPSY SYN RPT MELANOMA OF SKIN EXCISION SYN RPT REPAIR UMBILICAL HERNIA 2002, 2003 mesh SKIN BIOPSY HX Medications: Current Outpatient Medications Medication Sig Dispense Refill CARAFATE [address] 1 tablet in cup with 15ml-30ml warm water. Allow to dissolve into a slurry and drink. Repeat FOUR times daily as directed. Start on 07/30/24. 120 tablet 2 omeprazole (PRILOSEC) 40 mg capsule Take 1 capsule by mouth two times a day. Open capsule sprinkle over applesauce and take 30 minutes before breakfast and 30 minutes before dinner 180 capsule 0 ergocalciferol, vitamin D2, (DRISDOL) 50,000 unit capsule Take 1 capsule by mouth once each week. levothyroxine (SYNTHROID) 100 mcg tablet Take 1 tablet by mouth once daily. Multivitamin capsule Take 1 capsule by mouth once daily. No current facility-administered medications for this visit. Allergies: ALLERGIES No Known Allergies Family History: No known colon cancer, polyps, IBD, celiac disease, pancreatic disease, or liver disease. FAMILY HISTORY Problem Relation Age of Onset Stroke Mother 42 DVT Mother other (CHF) Mother other (Bipolar Disorder) Mother dx after stroke Alcohol/Drug Father alcohol Diabetes Father Hypertension Father Cancer Father liver and pancreatic Hypertension Sister DVT Sister Rectal Cancer Brother COPD Brother Alcohol abuse Brother Hypertension Maternal Grandmother Hyperlipidemia Maternal Grandmother COPD Maternal Grandmother Diabetes Paternal Grandmother Kidney failure Paternal Grandmother Diabetes Paternal Grandfather No Known Problems Daughter No Known Problems Daughter ? Social History: Social History Tobacco Use Smoking status: Never Passive exposure: Never Smokeless tobacco: Never Vaping Use Vaping status: Never Used Substance Use Topics Alcohol use: No Drug use: No Tobacco: Tobacco Use: Never Alcohol: Alcohol Use: No Illicits: Drug Use: No Review of Systems: Review of Systems Constitutional: (+) food cravings, (-) fever, (-) chills, (-) night sweats Eyes: (-) vision problems Cardiovascular: (-) chest pain Respiratory: (-) shortness of breath Gastrointestinal: (+) vomiting, (-) nausea, (-) abdominal pain, (-) constipation, (-) diarrhea, (-) heartburn Skin: (-) rash, (-) pruritus 12 point ROS otherwise negative. Physical Examination: Ht 154.9 cm (5' 1) Wt 72.6 kg (160 lb) LMP 09/03/2013 BMI 30.23 kg/m Physical Exam virtual/videocall encounter: Patient reported height 5'1.22 and weight 160 lbs LMP 09/03/2013 General - Normal, healthy, cooperative, in no acute distress Able to interact verbally by video conference Psych - ORIENTATION: normal to time place, person and situation Mood/Affect: AFFECT AND MOOD: Normal Head/Neuro - Normal size and shape Facial appearance normal Pulmonary - respiratory effort normal Cardiovascular - patient describes extremities normal, warm, no cyanosis,no clubbing and no edema Abdominal - Flat, Visible protrusions or hernias: No Incisions/scars: None, Areas of pain/tenderness: denies Skin - abnormal lesions not visualized Motor - patient seen sitting with Normal appearing strength and coordination ? Laboratory Data: Lab Results Component Value Date WBC 8.96 07/29/2024 WBC 3.17 (L) 07/14/2024 WBC 3.18 (L) 04/23/2024 HCT 36.5 07/29/2024 HCT 38.6 07/14/2024 HCT 40.0 04/23/2024 PLT 207 07/29/2024 PLT 216 07/14/2024 PLT 260 04/23/2024 Lab Results Component Value Date ALB 4.0 07/29/2024 TBILI 0.4 07/29/2024 Lab Results Component Value Date INR 1.0 07/14/2024 No components found for: VITDT, 25VITD, 25OHVITAMIND Lab Results Component Value Date B12 601 07/14/2024 TSH Date Value Ref Range Status 10/13/2009 1.75 0.34 - 5.60 UIU/ML Final Comment: TSH: ULTRASENSITIVE METHOD- LOWER DETECTION LIMIT = 0.01 UIU/ML No components found for: GHBA1C, [id number] WBC (k/uL) Date Value 07/29/2024 8.96 RBC (m/uL) Date Value 07/29/2024 3.92 Hemoglobin (g/dL) Date Value 07/29/2024 11.9 Hematocrit (%) Date Value 07/29/2024 36.5 MCV (fL) Date Value 07/29/2024 93.1 MCH (pg) Date Value 07/29/2024 30.4 MCHC (g/dL) Date Value 07/29/2024 32.6 RDW-CV (%) Date Value 07/29/2024 12.3 Platelet Count (k/uL) Date Value 07/29/2024 207 MPV (fL) Date Value 07/29/2024 9.1 Potassium (mmol/L) Date Value 07/29/2024 4.1 06/30/2019 3.3 Sodium (mmol/L) Date Value 07/29/2024 139 06/30/2019 137 Creatinine (mg/dL) Date Value 07/29/2024 0.72 06/30/2019 0.79 BUN (mg/dL) Date Value 07/29/2024 13 06/30/2019 8 Glucose (mg/dL) Date Value 07/29/2024 92 06/30/2019 138 INR (no units) Date Value 07/14/2024 1.0 TSH (UIU/ML) Date Value 10/13/2009 1.75 Glucose (mg/dL) Date Value 07/29/2024 92 BUN (mg/dL) Date Value 07/29/2024 13 Creatinine (mg/dL) Date Value 07/29/2024 0.72 Sodium (mmol/L) Date Value 07/29/2024 139 Potassium (mmol/L) Date Value 07/29/2024 4.1 Chloride (mmol/L) Date Value 07/29/2024 104 CO2 (mmol/L) Date Value 07/29/2024 24 Protein, Total (g/dL) Date Value 07/29/2024 6.6 Albumin (g/dL) Date Value 07/29/2024 4.0 Calcium, Total (mg/dL) Date Value 07/29/2024 9.1 Alkaline Phosphatase (U/L) Date Value 07/29/2024 77 Bilirubin, Total (mg/dL) Date Value 07/29/2024 0.4 AST (U/L) Date Value 07/29/2024 21 ALT (U/L) Date Value 07/29/2024 21 Glucose (mg/dL) Date Value 07/29/2024 92 06/30/2019 138 Creatinine (mg/dL) Date Value 07/29/2024 0.72 06/30/2019 0.79 Potassium (mmol/L) Date Value 07/29/2024 4.1 06/30/2019 3.3 AST (U/L) Date Value 07/29/2024 21 06/30/2019 21 ALT (U/L) Date Value 07/29/2024 21 06/30/2019 24 Hemoglobin A1C (%) Date Value 07/14/2024 5.3 Cholesterol, Total Date Value 07/14/2024 199 mg/dL 10/13/2009 173 MG/DL HDL Cholesterol Date Value 07/14/2024 53 mg/dL 10/13/2009 61 MG/DL ] LDL Cholesterol, Calculated Date Value 07/14/2024 133 mg/dL 10/13/2009 92 MG/DL Triglyceride Date Value 07/14/2024 65 mg/dL 10/13/2009 101 MG/DL Albumin/Creat Ratio (mg/g) Date Value 07/14/2024 <9 ] Imagin07/14/2024 Fibroscan Impression The liver stiffness is 4.8 kPa which corresponds to 97% chance of stage F0-F2 fibrosis. The CAP analysis showed grade S0 of liver steatosis. 10/16/2023 Fibroscan Impression The reading was adequate. FS =5.4 kPA. The CAP score is 249 and corresponds to steatosis grade of S1. Endoscopy: 07/27/2024 EGBR Findings: The examined esophagus was normal. The Z line was regular at 40 cm from incisors. The GE junction and hiatus were at 40 cm from incisors. Evidence of a Abisai-en-Y gastric bypass (RYGB) was found. The gastrojejunal anastomosis (GJA) was characterized by normal appearing mucosa. No ulcers, erosion, sutures or zeke. The GJA outlet was dilated 45 mm diameter and was traversed. The gastric pouch extended from 40 cm to 44 cm from the incisors. No gastro-gastric fistula found. The jejunum was normal at 60 cm (both Abisai/alimentary and blind limbs). No food or debris in the blind limb. The small bowel was not dilated and there was no evidence of excess fluid or distal obstruction. The jejuno-jejunal anastomosis was not evaluated. At the conclusion of the diagnostic endoscopy 120 mL of a dilute simethicone solution was instilled in the duodenum and an esophageal overtube with removable obturator was placed into the esophagus over the endoscope. Then the scope was exchanged for an upper double channel scope. REVISION OF GASTROJEJUNAL ANASTOMOSIS Attention was then given to the gastrojejunal anastomosis. The margin of the anastomosis was treated with Argon Plasma Coagulation (APC; forced APC, 0.8 L/min, 70 Moralez). The suturing device was then used to place 9 stitches into the tissue, in pursestring fashion, surrounding the anastomosis. The suture was then tightened and secured over a 6 mm bougie. Additional 1 interrupted suture was placed to reinforce pursestring sutures and for gastroplasty. Following the procedure a diagnostic endoscope was used to evaluate the anatomy, to look for signs of trauma or hemorrhage, and to remove the overtube. There were no mucosal injuries to the proximal esophagus. 2 syringes of hemostatic gel matrix (Purastat) were applied to the site. Impression: - No specimens collected. Estimated Blood Loss: Estimated blood loss was minimal. 10/30/2023 EGD/APC Findings: The examined esophagus was normal. The Z line was regular at 35 cm from incisors. The GE junction and hiatus were at 35 cm from incisors. Evidence of a Abisai-en-Y gastric bypass (RYGB) was found. The gastrojejunal anastomosis (GJA) was characterized by normal appearing mucosa. No ulcers, erosion, sutures or zeke. The GJA outlet was dilated 30 mm diameter and was traversed. The gastric pouch extended from 35 cm to 40 cm from the incisors. No gastro-gastric fistula found. The jejunum was normal at 60 cm (both Abisai/alimentary and blind limbs). No food or debris in the blind limb. The small bowel was not dilated and there was no evidence of excess fluid or distal obstruction. The jejuno-jejunal anastomosis was not evaluated. At the conclusion of the diagnostic endoscopy 120 mL of a dilute simethicone solution was instilled in the jejunum. APC REVISION OF GASTROJEJUNAL ANASTOMOSIS Attention was then given to the gastrojejunal anastomosis. The margin of the anastomosis was treated with Argon Plasma Coagulation for revision. There were no mucosal injuries to the proximal esophagus. The examined jejunum was normal. Impression: - Normal examined jejunum. - No specimens collected. Estimated Blood Loss: Estimated blood loss: none. Assessment and Recommendations: ??54 year old female with history as per HPI presenting to GI/Bariatric Endoscopy clinic for complications of bariatric surgery s/p RYGB c/b weight gain, s/p APC revision, s/p 3 months post TORe revision, obesity class I and weight management. Weight History: Pre-RYGB weight: 280 lbs (BMI 51.2). Post-RYGB ava: 160 lbs (BMI 29.3). weight: 234 lbs (BMI 42.80) weight: 216 lbs (BMI 41.9) weight: 213 lbs (BMI 40.25) weight: 217 lbs (BMI 41) Pre APC weight:216 lbs (BMI 39) 1 month post APC weight: 200 lbs (BMI 36.5) Represents 7.4% TBWL 3 months after APC: 185 lbs (14.35% TBWL) 6 month post APC weight: 178 lbs (BMI 33) Represents 17.5% TBWL 8 month and 2 weeks post APC weight: 183 lbs (BMI 34.58) Represents 20 % TBWL Pre TORe weight: 186 lbs (BMI 35) 1 month post TORe and 10 months post APC revision weight: 169 lbs (BMI 31.93) Representing 9.13 % TBWL 3 months post TORe and 12 months post APC revision weight: 160 lbs (BMI 30) Representing 14 % TBWL Recommendations: We discussed your post-surgical progress and overall health: - You are three months post-revision surgery (July 28). You reported no nausea, abdominal pain, constipation, or diarrhea. You mentioned two episodes of vomiting, likely due to not chewing food thoroughly. Please continue to take your time eating and chew food well to avoid this in the future. We discussed your medications: - Sucralfate has been discontinued as it is no longer needed. - Omeprazole: Take once daily, 30 minutes before breakfast, for 30 days, then discontinue. If you experience symptoms of reflux or esophagitis after stopping, please contact me to restart the medication. - Vitamin D: Your levels were normal before EGBR procedure. We can recheck your levels now since you've held vitamin D supplement. I have also placed an order for a vitamin D lab test, which you can complete at a [facility] lab. - Multivitamin: You may switch from the Bariatric Chewable to a women s one-a-day multivitamin, but ensure it provides 200% of the daily value of vitamins. If you switch, you will need to add a calcium citrate supplement (1,200-1,500 mg daily) since [id number] multivitamins do not contain the recommended calcium support. We discussed your weight and fitness: - Your weight is holding steady at 160 lbs, and you have dropped a clothing size. This may reflect muscle gain from your exercise routine, which includes rowing, free weights, and walking your dog 2 miles at least 5 days per week. Please continue your current exercise regimen. - You are still down 9 lbs since your last visit, and your progress is excellent. Keep tracking your non-scale victories, such as changes in clothing size and strength. We discussed your appetite and cravings: - You mentioned evening sweet cravings. Consider incorporating an afternoon snack to help manage this. You are already making healthier sweet options, such as sugar-free Jell-O, which is a good strategy. - If you experience a plateau or difficulty managing appetite in the future, we can discuss options such as phentermine, contrave, orlistat, incretin medications. We discussed your follow-up care: - Return to clinic in January, which will be your 6-month post visit. I have placed orders for fasting labs (12-hour fast required) to be completed before that visit. - Continue following up with dietitian - Continue following up with psychologist Please continue your current routine, including taking your vitamins, exercising regularly, and maintaining your healthy habits. Let me know if you have any concerns or changes in your symptoms. VIRTUAL VISIT I spent a total of 30 minutes during this real-time, interactive virtual clinical encounter, which was conducted virtually using HIPAA compliant videoconferencing technology. Greater than 50% of the time spent was devoted to counseling and coordinating care including review of records, pertinent lab data and studies, as well as discussing diagnostic evaluation and work up, planned therapeutic interventions and future disposition of care. This includes any additional research needed to obtain further information in formulating the plan of care of this patient. This includes counseling the patient about her disease and diagnosis, specifically: complications of bariatric surgery s/p RYGB, s/p APC revision, obesity class I and weight management We reviewed coronavirus precautions including avoiding public places, maintaining 6 feet of distance from other persons when in public, no sick contacts, and fastidious handwashing. Thank you for allowing me to participate in the care of your patient. If you have any questions or concerns, please feel free to contact me. Maranda Castro APRN.CNP GI Bariatric Endoscopy 10/20/2024 9:59 AM documented in this encounter [facility] 10-20-2024 Note HNO ID: [id number] Author: MARANDA CASTRO APRN.CNP Service: ? Author Type: Nurse Practitioner Type: Progress Notes Filed: 10/20/2024 10:03 Note Text: Demetri Arnold DO [address] [place] [address] [place] [id number] GI/Bariatric Endoscopy Clinic Visit Gastroenterology, Hepatology, and Nutrition Department ?[facility] ? 10/20/2024 ? The patient encounter is a virtual/telephone visit today, 10/20/2024, in lieu of an office visit due to the current ID- pandemic crisis and need for social distancing. Reason for Visit: Complications of bariatric surgery s/p RYGB c/b weight gain, s/p APC revision s/p TORe revision (3 months out) obesity class I and weight management. Patient is: Established patient Location of Provider: Hospital Location of Patient: Home Consent for virtual care, including informing the patient that insurance will be billed, and that in-person care is available in case of emergencies or as needed otherwise, was discussed at the time of scheduling. Dear Demetri Arnold, DO, ? I had the pleasure of seeing Melissa Nichols in the [facility] GI/Bariatric Endoscopy Clinic for complications of bariatric surgery s/p RYGB c/b weight gain, s/p APC revision, s/p 3 months post TORe revision, obesity class I and weight management. ?? The patient is a 54 year old female with past medical history as below presenting to us with complications of bariatric surgery s/p RYGB c/b weight gain, s/p APC revision s/p 3 months post TORe revision, obesity class I and weight management. Interval History: The patient is a 54-year-old female presenting for a three-month post procedure follow-up after a endoscopic gastric bypass revision (TORe) performed on 07/28 and hx of APC revision on 10/30/2023. She reports feeling well overall, with no ongoing nausea, vomiting, abdominal pain, constipation, reflux or diarrhea. She describes two isolated episodes of vomiting earlier on post procedure, both of which she attributes to eating too quickly and not chewing thoroughly. One episode occurred after eating shrimp for the first time post procedure, and she is uncertain whether the texture or inadequate chewing was responsible. She has not retried shrimp since that episode. She denies any current or recent heartburn, reflux, or gastritis symptoms, noting that these issues resolved after her initial bariatric surgery several years ago and have not recurred. Currently on omeprazole twice a day, and a chewable bariatric multivitamin. She has not resumed her weekly vitamin D supplement since procedure but is considering restarting it last vitamin D was normal can repeat lab prior to restarting vitamin D. She is nearly out of her current chewable bariatric multivitamin and is interested in switching to a capsule or a standard women?s multivitamin [id number], and she understands the need to supplement with calcium citrate if she does so. Regarding weight management, she reports her weight is stable at 160 pounds, though she has dropped a clothing size and attributes this to increased muscle mass from regular exercise. She engages in home workouts using a rowing machine and free weights, and walks her dog two miles at least five days per week, sometimes six. She is down at least nine pounds since her last visit. She rates her energy as good and generally sleeps well, though her sleep has been disrupted recently due to her dog?s altered routine. She denies fevers, chills, night sweats, chest pain, shortness of breath, skin issues, rashes, itching, or vision problems. She notes that her appetite is generally good, though she continues to experience evening cravings for sweets. She has begun preparing sugar-free desserts, such as sugar-free Jell-O, to help manage these cravings. 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 She is working on adjusting her meal planning to accommodate her new routine. She denies waking at night snacking or eating. She reports prior use of appetite and weight management medications, including phentermine-fen (years ago), topiramate (with side effects of nausea or not feeling well from topiramate) and Wellbutrin (without perceived benefit). She has never tried phentermine alone. (07/14) Vitamin D level: Normal FibroScan: Normal, indicating no hepatic steatosis Anthropometrics Weight History Weight Change Height 5 ft 1.22 in Current Weight BMI 160 lbs 30 Initial Program Weight BMI 231 lbs 42 -71 lbs Procedure Weight BMI 216 lbs (BMI 39) APC 186 lbs (BMI 35) TORe 32 %TWL 14% TWL from TORe [facility] Last Visit Weight 169 lbs -9 lbs Non-Scale Progress (1 is low and 10 is high) 1 2 3 4 5 6 7 8 9 10 Energy [] [] [] [] [] [] (more content not included)... [facility] 10-20-[address] - 10/20/2024 8:55 AM EDT Nutrition Intervention 10/20/2024: Modify type and amount of food consumed for meals and snacks: 1. Protein: Continue to strive for 72 g protein per day. Eat protein first at all meals. Lean meats, low fat/part skim dairy products, peanut butter, eggs, beans. 2. Eat 4 small meals per day or 3 meals and 1-2 small snacks for additional protein 3. Fluids: 64 oz per day, minimum. No carbonation, no caffeine, no calories, no alcohol. 4. Vitamin/minerals: Take daily multivitamin with 200 % daily value for all vitamin/minerals plus VIt D3 3,000 IU, Vit B12 500 mcg, Iron 45 mg and calcium citrate [id number] mg/day . It is okay to use combination vitamin/minerals to reduce pill volume. 5. Exercise: strive for daily activity - combine strength training and cardio for best workouts. Goal is 30 minutes 5-6x per week. 6. Practice these: Eat in this order protein first, vegetable and fruit second and whole grain carbohydrates last. * Separate eating and drinking by 30 minutes * Chew your food 20-30x per bite * Meals should last 30 minutes. Nutrition Monitoring & Evaluation: BMI < 30 Need for Follow up: 3 months documented in this encounter [facility] 10-20-2024 Note HNO ID: [id number] Author: TREY CERON RD Service: ? Author Type: Registered Dietitian Type: Progress Notes Filed: 10/20/2024 08:55 Note Text: [facility] Nutrition Therapy: Virtual Consult - Re-assessment I have communicated my name and active licensure. The patient?s identity and physical location were verified at the time of this visit. Either the patient or their legal medical detail representative has been informed of the risks and benefits of -- and alternatives to -- treatment through a remote evaluation and consents to proceed with the evaluation remotely. Nutrition Diagnosis: Altered Gastrointestinal Tract Function, related to, S/P bariatric surgery, as evidenced by surgical and weight history. RECOMMENDED MALNUTRITION DIAGNOSIS: NO MALNUTRITION IDENTIFIED NUTRITION CARE PLAN: Nutrition Intervention 10/20/2024: Modify type and amount of food consumed for meals and snacks: 1. Protein: Continue to strive for 72 g protein per day. Eat protein first at all meals. Lean meats, low fat/part skim dairy products, peanut butter, eggs, beans. 2. Eat 4 small meals per day or 3 meals and 1-2 small snacks for additional protein 3. Fluids: 64 oz per day, minimum. No carbonation, no caffeine, no calories, no alcohol. 4. Vitamin/minerals: Take daily multivitamin with 200 % daily value for all vitamin/minerals plus VIt D3 3,000 IU, Vit B12 500 mcg, Iron 45 mg and calcium citrate 5471-6129 mg/day . It is okay to use combination vitamin/minerals to reduce pill volume. 5. Exercise: strive for daily activity - combine strength training and cardio for best workouts. Goal is 30 minutes 5-6x per week. 6. Practice these: Eat in this order protein first, vegetable and fruit second and whole grain carbohydrates last. * Separate eating and drinking by 30 minutes * Chew your food 20-30x per bite * Meals should last 30 minutes. Nutrition Monitoring AND Evaluation: BMI < 30 Need for Follow up: 3 months PROGRESS: Interval History: 3 months post TORe (07/28/24). S/p APC 10/30/23. Current weight loss tracking tracking above expected. Diet recall indicates tolerance to phase 5 diet. Patient estimates to be consuming 8500-2877 kcal/day inadequate to adequate intake, 70-80 gm protein/day adequate intake, and 64 oz/day adequate intake. Taking all recommended vitamin/minerals. Labs not available for review. Exercise is routine with both cardio and strength training. Resting Metabolic Rate: 1271 Energy needs for weight loss 9169-7713 kcal/day (15-20 kcal/kg CBW) Protein needs: 72 grams protein per day (1.2 g/kg IBW) Anthropometrics Weight History Weight Change Height 5 ft 1 in Current Weight BMI 160 lbs Body mass index is 30.23 kg/m?. Initial Program Weight BMI 231 lbs 43.6 -71 lbs TORe Weight BMI APC Weight BMI 186 lbs 35.1 216 lbs 40.8 13.9 %TWL tracking from TORe Last Visit Weight 167 lbs -7 lbs Non-Scale Progress (1 is low and 10 is high) 1 2 3 4 5 6 7 8 9 10 Energy [] [] [] [] [] [] [] [x] [] [] Sleep [] [] [] [] [] [] [] [x] [] [] Looser Fitting Clothing (1 is tight and 10 is baggy) [] [] [] [] [] [] [] [x] [] [] Daily Movement [] [] [] [] [] [x] [] [] [] [] Physical Fitness [] [] [] [] [] [] [] [] [x] [] Appetite/Hunger (1 is low hunger/ 10 is high hunger) [] [x] [] [] [] [] [] [] [] [] Cravings (1 is no cravings/ 10 is frequent cravings) [] [] [] [x] [] [] [] [] [] [] Physical Pain (1 is no pain/ 10 is worst pain) [x] [] [] [] [] [] [] [] [] [] Nutrition Intervention 09/06/24 1. Continue with phase 4 soft protein foods for additional 2 weeks; -Well-chewed the the consistency of applesauce 2. Protein Goal: 72 grams a day 3. Continue chewable forms of bariatric vitamins -Bariatric Fusion Complete Chewable (2 in AM, 2 in the PM) 4. 64 oz of fluid per day (zero calorie, no carbonation, no caffeine, no alcohol) 5. Physical Activity: continue to increase as able 6. Separate eating and drinking by 30 minutes - Do not advance to Stage 5 until at least 60 days post-procedure and protein goals are consistently being met * Stage 5: focus on meeting protein goals. Introduce appropriate vegetables, fruits, starches as able. Begin with solid proteins and soft cooked vegetables (one at a time), progressing to raw vegetables, and then introducing complex carbohydrates (fruit, whole grains, starchy vegetables) after 1 week of tolerating solid diet. Focus on solid, bulky, high fiber, and low fat foods Actions to implement interventions: see assessment Diet History: Breakfast - zero sugar 20 gram algerian yogurt with fruit (berries) OR protein shake OR protein oatmeal with blueberries Snack - none Lunch - lean turkey lunch meat with low sodium cheese with vegetables OR leftovers Snack - none OR cheese stick Dinner - protein (chicken breast, ground turkey, beef, pork) with vegetables sometimes cheese or salsa sometimes with starch (red skin potato) (more content not included)... [facility] 10-20-2024 History of Present illness Narrative [facility] Nutrition Therapy: Virtual Consult - Re-assessment I have communicated my name and active licensure. The patient s identity and physical location were verified at the time of this visit. Either the patient or their legal medical detail representative has been informed of the risks and benefits of -- and alternatives to -- treatment through a remote evaluation and consents to proceed with the evaluation remotely. Nutrition Diagnosis: Altered Gastrointestinal Tract Function, related to, S/P bariatric surgery, as evidenced by surgical and weight history. RECOMMENDED MALNUTRITION DIAGNOSIS: NO MALNUTRITION IDENTIFIED NUTRITION CARE PLAN: Nutrition Intervention 10/20/2024: Modify type and amount of food consumed for meals and snacks: 1. Protein: Continue to strive for 72 g protein per day. Eat protein first at all meals. Lean meats, low fat/part skim dairy products, peanut butter, eggs, beans. 2. Eat 4 small meals per day or 3 meals and 1-2 small snacks for additional protein 3. Fluids: 64 oz per day, minimum. No carbonation, no caffeine, no calories, no alcohol. 4. Vitamin/minerals: Take daily multivitamin with 200 % daily value for all vitamin/minerals plus VIt D3 3,000 IU, Vit B12 500 mcg, Iron 45 mg and calcium citrate 2866-0618 mg/day . It is okay to use combination vitamin/minerals to reduce pill volume. 5. Exercise: strive for daily activity - combine strength training and cardio for best workouts. Goal is 30 minutes 5-6x per week. 6. Practice these: Eat in this order protein first, vegetable and fruit second and whole grain carbohydrates last. * Separate eating and drinking by 30 minutes * Chew your food 20-30x per bite * Meals should last 30 minutes. Nutrition Monitoring & Evaluation: BMI < 30 Need for Follow up: 3 months PROGRESS: Interval History: 3 months post TORe (07/28/24). S/p APC 10/30/23. Current weight loss tracking tracking above expected. Diet recall indicates tolerance to phase 5 diet. Patient estimates to be consuming 5271-9764 kcal/day inadequate to adequate intake, 70-80 gm protein/day adequate intake, and 64 oz/day adequate intake. Taking all recommended vitamin/minerals. Labs not available for review. Exercise is routine with both cardio and strength training. Resting Metabolic Rate: 1271 Energy needs for weight loss 8452-5399 kcal/day (15-20 kcal/kg CBW) Protein needs: 72 grams protein per day (1.2 g/kg IBW) Anthropometrics Weight History Weight Change Height 5 ft 1 in Current Weight BMI 160 lbs Body mass index is 30.23 kg/m . Initial Program Weight BMI 231 lbs 43.6 -71 lbs TORe Weight BMI APC Weight BMI 186 lbs 35.1 216 lbs 40.8 13.9 %TWL tracking from TORe Last Visit Weight 167 lbs -7 lbs Non-Scale Progress (1 is low and 10 is high) 1 2 3 4 5 6 7 8 9 10 Energy [] [] [] [] [] [] [] [x] [] [] Sleep [] [] [] [] [] [] [] [x] [] [] Looser Fitting Clothing (1 is tight and 10 is baggy) [] [] [] [] [] [] [] [x] [] [] Daily Movement [] [] [] [] [] [x] [] [] [] [] Physical Fitness [] [] [] [] [] [] [] [] [x] [] Appetite/Hunger (1 is low hunger/ 10 is high hunger) [] [x] [] [] [] [] [] [] [] [] Cravings (1 is no cravings/ 10 is frequent cravings) [] [] [] [x] [] [] [] [] [] [] Physical Pain (1 is no pain/ 10 is worst pain) [x] [] [] [] [] [] [] [] [] [] Nutrition Intervention 09/06/24 1. Continue with phase 4 soft protein foods for additional 2 weeks; -Well-chewed the the consistency of applesauce 2. Protein Goal: 72 grams a day 3. Continue chewable forms of bariatric vitamins -Bariatric Fusion Complete Chewable (2 in AM, 2 in the PM) 4. 64 oz of fluid per day (zero calorie, no carbonation, no caffeine, no alcohol) 5. Physical Activity: continue to increase as able 6. Separate eating and drinking by 30 minutes - Do not advance to Stage 5 until at least 60 days post-procedure and protein goals are consistently being met * Stage 5: focus on meeting protein goals. Introduce appropriate vegetables, fruits, starches as able. Begin with solid proteins and soft cooked vegetables (one at a time), progressing to raw vegetables, and then introducing complex carbohydrates (fruit, whole grains, starchy vegetables) after 1 week of tolerating solid diet. Focus on solid, bulky, high fiber, and low fat foods Actions to implement interventions: see assessment Diet History: Breakfast - zero sugar 20 gram algerian yogurt with fruit (berries) OR protein shake OR protein oatmeal with blueberries Snack - none Lunch - lean turkey lunch meat with low sodium cheese with vegetables OR leftovers Snack - none OR cheese stick Dinner - protein (chicken breast, ground turkey, beef, pork) with vegetables sometimes cheese or salsa sometimes with starch (red skin potato) Snack - none Beverages - water (64 oz per day), decaf tea occasional, coffee (1 cup per day) mixed with premier protein Alcohol - none Vitamins/Supplements - bariatric fusion complete chewables (2 in AM, 2 in PM) Activity: Activities of Daily Living: Active 25% of the day. 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 Resting Metabolic Rate: 1298 Malnutrition Screening Significant unintentional weight loss? No Eating less than 75% of usual intake for more than 2 weeks? No Potential Signs of Inflammation: no identifiable sources Nutritional status: Food Insecurity: No Food Insecurity (10/20/2024) Hunger Vital Sign Worried About Running Out of Food in the Last Year: Never true Ran Out of Food in the Last Year: Never true Education Materials Provided: None this visit READINESS TO LEARN Cognitive ability: Alert and oriented Motivation to learn: Interested Family support: Unable to assess - Family not present Instruction provided to: Patient Patient learns best by: Multiple Methods Factors affecting learning: None Physical limitations affecting learning: None Likelihood of Adherence: Moderate Referred by: Dr. Thomas MNT Billing Type: Re-assess 1 unit Total Time (mins): 13 SIGNATURE: Trey Ceron RD PATIENT NAME: Melissa Nichols DATE: October 20, 2024 TIME: 8:36 AM PAGER: N/A documented in this encounter [facility] 09-09-2024 Note HNO ID: [id number] Author: ADALI OLIVEROS PSYD Service: ? Author Type: Psychologist Type: Progress Notes Filed: 09/09/2024 09:36 Note Text: GI/[facility]ariatric [facility]oscopy [facility] Visit Gastroenterology, Hepatology, and Nutrition Department ?[facility] September 09, 2024 Melissa Nichols CPT Code: [id number] Virtual Psychotherapy 16-37 minutes Time: 8:52 am to 9:26 am Session #: 5 Virtual Visit I have communicated my name and active licensure. The patient's identity and physical location were verified at the time of this visit. Either the patient or their legal medical detail representative has been informed of the risks and benefits of -- and alternatives to -- treatment through a remote evaluation and consents to proceed with the evaluation remotely. Patient is in the [facility] during our call PsyPACT: I am authorized to practice either (1) interjurisdictional telepsychology under Authority to Practice Interjurisdictional Telepsychology (APIT) or (2) temporary in-person, [id number] practice for up to 30 days a calendar year in each [facility] state under Temporary Authorization to Practice (TAP). Collateral Parties Present: none. This is a 54 year old patient pursuing medical/surgical weight management in counseling for support in lifestyle modification and improved coping skills. Anthropometrics Weight History Weight Change Height 5 ft 1 in Current Weight BMI 166 lbs 31.37 Initial Program Weight BMI 231 lbs 4306 -64 lbs TORe Weight BMI APC Weight BMI 186 lbs 35.1 216 40.8 10.8 %TWL Last Visit Weight 167 lbs 1 lbs Non-Scale Progress (1 is low and 10 is high) 1 2 3 4 5 6 7 8 9 10 Energy [] [] [] [] [] [] [] [x] [] [] Sleep [] [] [] [] [] [] [] [x] [] [] Looser Fitting Clothing (1 is tight and 10 is baggy) [] [] [] [] [] [x] [] [] [] [] Daily Movement [] [] [] [] [] [] [] [] [x] [] Physical Fitness [] [] [] [] [x] [] [] [] [] [] Appetite/Hunger (1 is low hunger/ 10 is high hunger) [] [] [] [] [x] [] [] [] [] [] Cravings (1 is no cravings/ 10 is frequent cravings) [] [x] [] [] [] [] [] [] [] [] Physical Pain (1 is no pain/ 10 is worst pain) [x] [] [] [] [] [] [] [] [] [] Subjective: Stress/Changes: one instance of dysphagia and vomiting since introducing soft proteins- black beans 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 Discussed pt's awareness for physical sensations and how stress (mental/emotional/physical) impact symptoms. Opportunities for use in daily life were addressed. Patient was seen virtually The patient was well-groomed. She was cooperative with the interview process. The patient had excellent eye contact. Appearance: Well dressed, well groomed Behavior: Behaves appropriately during the encounter Social Relatedness: Appropriate for age and developmental level Speech: The patient demonstrates appropriate tone, prosody, siria, phonetics, and syntax Mood:Euthymic and Engaging Affect: Full and appropriate to topic Thought Content: The patient displays thought content appropriate to the interview. Thought Process:The thought process is appropriate for situation Hallucinations: No perceptual disturbances Delusions: No delusional thinking is evident Suicidal Ideas/Plans: The patient denies suicidal ideation, intent or plan Homicidal Ideas/Plans: Patient denies any homicidal ideation, plan or intent at this time. Anxiety: The patient is demonstrating anticipatory anxieties Orientation: Person, Place, Time and Situation Memory: Recent intact, Remote intact, and Immediate intact Concentration: Good Attention: The patient demonstrated full attention and focus throughout the interview Fund of Knowledge: Appropriate for age and developmental level Judgment: Demonstrates age appropriate judgment Insight: demonstrates good insight The patient's motivation for treatment was judged to be good. Assessment: Reviewed results from HARMONY-7, PHQ-9 indicating No elevation and informed interventions in this visit. 09/09/24 - PHQ-2 Score: 0 PHQ-9 Score: 0 Patient Data Generalized Anxiety Disorder Scale (HARMONY-7) 04/17/2024 07/08/2024 09/05/2024 HARMONY - 7 SCORES Score 0 0 0 (0-4) minimal anxiety, (5-9) mild anxiety, (10-14) moderate anxiety, (15-21) severe anxiety Patient Health Questionnaire (PHQ-9) 04/17/2024 07/08/2024 09/05/2024 PHQ-9 Score 1 1 0 (0-4) minimal depression, (5-9) mild depression, (10-14) moderate depression, (15-19) moderately severe depression, (20-27) severe depression PROMIS Global Health 01/15/2024 04/17/2024 07/08/2024 PROMIS Global Health - (T-Scores - the mean (more content not included)... [facility] 09-09-2024 History of Present illness Narrative Images from the original note were not included. GI/Bariatric Endoscopy Clinic Visit Gastroenterology, Hepatology, and Nutrition Department ?[facility] September 09, 2024 Melissa Nichols CPT Code: [id number] Virtual Psychotherapy 16-37 minutes Time: 8:52 am to 9:26 am Session #: 5 Virtual Visit I have communicated my name and active licensure. The patient's identity and physical location were verified at the time of this visit. Either the patient or their legal medical detail representative has been informed of the risks and benefits of -- and alternatives to -- treatment through a remote evaluation and consents to proceed with the evaluation remotely. Patient is in the state [facility] during our call PsyPACT: I am authorized to practice either (1) interjurisdictional telepsychology under Authority to Practice Interjurisdictional Telepsychology (APIT) or (2) temporary in-person, [id number] practice for up to 30 days a calendar year in each [facility] state under Temporary Authorization to Practice (TAP). Collateral Parties Present: none. This is a 54 year old patient pursuing medical/surgical weight management in counseling for support in lifestyle modification and improved coping skills. Anthropometrics Weight History Weight Change Height 5 ft 1 in Current Weight BMI 166 lbs 31.37 Initial Program Weight BMI 231 lbs 4306 -64 lbs TORe Weight BMI APC Weight BMI 186 lbs 35.1 216 40.8 10.8 %TWL Last Visit Weight 167 lbs 1 lbs Non-Scale Progress (1 is low and 10 is high) 1 2 3 4 5 6 7 8 9 10 Energy [] [] [] [] [] [] [] [x] [] [] Sleep [] [] [] [] [] [] [] [x] [] [] Looser Fitting Clothing (1 is tight and 10 is baggy) [] [] [] [] [] [x] [] [] [] [] Daily Movement [] [] [] [] [] [] [] [] [x] [] Physical Fitness [] [] [] [] [x] [] [] [] [] [] Appetite/Hunger (1 is low hunger/ 10 is high hunger) [] [] [] [] [x] [] [] [] [] [] Cravings (1 is no cravings/ 10 is frequent cravings) [] [x] [] [] [] [] [] [] [] [] Physical Pain (1 is no pain/ 10 is worst pain) [x] [] [] [] [] [] [] [] [] [] Subjective: Stress/Changes: one instance of dysphagia and vomiting since introducing soft proteins- black beans 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 Discussed pt's awareness for physical sensations and how stress (mental/emotional/physical) impact symptoms. Opportunities for use in daily life were addressed. Patient was seen virtually The patient was well-groomed. She was cooperative with the interview process. The patient had excellent eye contact. Appearance: Well dressed, well groomed Behavior: Behaves appropriately during the encounter Social Relatedness: Appropriate for age and developmental level Speech: The patient demonstrates appropriate tone, prosody, siria, phonetics, and syntax Mood:Euthymic and Engaging Affect: Full and appropriate to topic Thought Content: The patient displays thought content appropriate to the interview. Thought Process:The thought process is appropriate for situation Hallucinations: No perceptual disturbances Delusions: No delusional thinking is evident Suicidal Ideas/Plans: The patient denies suicidal ideation, intent or plan Homicidal Ideas/Plans: Patient denies any homicidal ideation, plan or intent at this time. Anxiety: The patient is demonstrating anticipatory anxieties Orientation: Person, Place, Time and Situation Memory: Recent intact, Remote intact, and Immediate intact Concentration: Good Attention: The patient demonstrated full attention and focus throughout the interview Fund of Knowledge: Appropriate for age and developmental level Judgment: Demonstrates age appropriate judgment Insight: demonstrates good insight The patient's motivation for treatment was judged to be good. Assessment: Reviewed results from HARMONY-7, PHQ-9 indicating No elevation and informed interventions in this visit. 09/09/24 - PHQ-2 Score: 0 PHQ-9 Score: 0 Patient Data Generalized Anxiety Disorder Scale (HARMONY-7) 04/17/2024 07/08/2024 09/05/2024 HARMONY - 7 SCORES Score 0 0 0 (0-4) minimal anxiety, (5-9) mild anxiety, (10-14) moderate anxiety, (15-21) severe anxiety Patient Health Questionnaire (PHQ-9) 04/17/2024 07/08/2024 09/05/2024 PHQ-9 Score 1 1 0 (0-4) minimal depression, (5-9) mild depression, (10-14) moderate depression, (15-19) moderately severe depression, (20-27) severe depression PROMIS Global Health 01/15/2024 04/17/2024 07/08/2024 PROMIS Global Health - (T-Scores - the mean of general population = 50. Five points is a clinically meaningful difference.) Physical T-Score 57.7 57.7 57.7 57.7 57.7 57.7 57.7 Mental T-Score 53.3 53.3 53.3 53.3 53.3 53.3 53.3 Current Outpatient Medications Medication Sig CARAFATE [address] 1 tablet in cup with 15ml-30ml warm water. Allow to dissolve into a slurry and drink. Repeat FOUR times daily as directed. Start on 07/30/24. omeprazole (PRILOSEC) 40 mg capsule Take 1 capsule by mouth two times a day. Open capsule sprinkle over applesauce and take 30 minutes before breakfast and 30 minutes before dinner ergocalciferol, vitamin D2, (DRISDOL) 50,000 unit capsule Take 1 capsule by mouth once each week. levothyroxine (SYNTHROID) 100 mcg tablet Take 1 tablet by mouth once daily. Multivitamin capsule Take 1 capsule by mouth once daily. No current facility-administered medications for this visit. Medication Changes: No change in medications Diagnoses: Psychological Factors Affecting a Medical Condition class 1 obesity Procedure Status: Post--TORe (07/28/24) Post-APC (10/30/23) Treatment Goals: Decrease symptoms of stress Increase identification of emotions and emotional regulation Learn healthy tools for emotional release Set healthy boundaries with others Set healthy boundaries with self Increase tools related to communication Increase interest in activities/interest in life Increase healthy lifestyle routines (sleep, exercise, schedule) Develop mindfulness/meditation practice(s) Increase healthy choices with food Increase physical activity Explore and engage in activities that align with interests Plan: 1) The patient identified a goal to pursue until the next visit: Continue current treatment 2) Number of weeks till next appointment: 6 months. Supervising Licensed Psychologist & Billing Provider: Adali Oliveros PSYD documented in this encounter [facility] 09-06-2024 Note HNO ID: [id number] Author: TREY CERON RD Service: ? Author Type: Registered Dietitian Type: Progress Notes Filed: 09/06/2024 13:18 Note Text: [facility] Nutrition Therapy: Virtual Consult - Re-assessment I have communicated my name and active licensure. The patient?s identity and physical location were verified at the time of this visit. Either the patient or their legal medical detail representative has been informed of the risks and benefits of -- and alternatives to -- treatment through a remote evaluation and consents to proceed with the evaluation remotely. Nutrition Diagnosis: Altered Gastrointestinal Tract Function, related to, S/P bariatric surgery, as evidenced by surgical and weight history. RECOMMENDED MALNUTRITION DIAGNOSIS: NO MALNUTRITION IDENTIFIED NUTRITION CARE PLAN: Nutrition Intervention 09/06/2024: Modify type and amount of food consumed for meals and snacks: 1. Continue with phase 4 soft protein foods for additional 2 weeks; -Well-chewed the the consistency of applesauce 2. Protein Goal: 72 grams a day 3. Continue chewable forms of bariatric vitamins -Bariatric Fusion Complete Chewable (2 in AM, 2 in the PM) 4. 64 oz of fluid per day (zero calorie, no carbonation, no caffeine, no alcohol) 5. Physical Activity: continue to increase as able 6. Separate eating and drinking by 30 minutes - Do not advance to Stage 5 until at least 60 days post-procedure and protein goals are consistently being met * Stage 5: focus on meeting protein goals. Introduce appropriate vegetables, fruits, starches as able. Begin with solid proteins and soft cooked vegetables (one at a time), progressing to raw vegetables, and then introducing complex carbohydrates (fruit, whole grains, starchy vegetables) after 1 week of tolerating solid diet. Focus on solid, bulky, high fiber, and low fat foods Nutrition Monitoring AND Evaluation: BMI < 30 Need for Follow up: as already scheduled PROGRESS: Interval History: 6 weeks post TORe (07/28/24). S/p APC 10/30/23. Current weight loss tracking above expected. Diet recall indicates tolerance to phase 3 diet. Patient estimates to be consuming 480 kcal/day inadequate intake, 90 gm protein/day adequate intake, and 64 oz/day adequate intake. Taking all recommended vitamin/minerals. Labs not available for review. Exercise is routine with both cardio and strength training meeting recommended 200 minutes per week. Resting Metabolic Rate: 1303 Energy needs for weight loss 5617-5013 kcal/day (10-15 kcal/kg CBW) Protein needs: 72 grams protein per day (1.2 g/kg IBW) Anthropometrics Weight History Weight Change Height 5 ft 1 in Current Weight BMI 167 lbs Body mass index is 31.55 kg/m?. Initial Program Weight BMI 231 lbs 43.6 -64 lbs TORe Weight BMI APC Weight BMI 186 lbs 35.1 216 lbs 40.8 10.2 %TWL from TORe procedure Last Visit Weight 177 lbs -10 lbs Nutrition Intervention 08/04/24 1. Continue with phase 3 protein shakes for additional 4 weeks; -Protein shakes: 150-200 calories, 15-30 grams of protein, <5-10 grams of sugar 2. Protein Goal: 72 grams a day 3. Begin chewable forms of bariatric vitamins -Bariatric Fusion Complete Chewable (2 in AM, 2 in the PM) 4. 64 oz of fluid per day (zero calorie, no carbonation, no caffeine, no alcohol) 5. Physical Activity: increase as tolerated. 6. Separate eating and drinking by 30 minutes - Do not advance to Stage 4 until at least 45 days post-op and protein goals are consistently being met * Stage 4: focus on meeting protein goals through soft, moist protein foods. 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 Resting Metabolic Rate: 1312 Malnutrition Screening Significant unintentional weight loss? No Eating less than 75% of usual intake for more than 2 weeks? No Potential Signs of Inflammation: no identifiable sources Nutritional status: Education Materials Provided: None this visit READINESS TO LEARN Cognitive ability: Alert and oriented Motivation to learn: Interested Family support: Unable to assess - Family not present Instruction provided to: Patient Patient learns best by: Multiple Methods Factors affecting learning: None Physical l (more content not included)... [facility] 08-27-2024 History of Present illness Narrative Images from the original note were not included. Demetri Arnold DO [address] [facility] [place] [address] GI/Bariatric Endoscopy Clinic Visit Gastroenterology, Hepatology, and Nutrition Department ?[facility] ? 08/27/2024 ? The patient encounter is a virtual/telephone visit today, 08/27/2024, in lieu of an office visit due to the current COVID-19 pandemic crisis and need for social distancing. Reason for Visit: 1 month post TORe and 10 months post APC revision, obesity class I and weight management Patient is: Established patient Location of Provider: Hospital Location of Patient: Home Consent for virtual care, including informing the patient that insurance will be billed, and that in-person care is available in case of emergencies or as needed otherwise, was discussed at the time of scheduling. Dear Demetri Arnold DO, ? I had the pleasure of seeing Melissa Nichols in the [facility] GI[facility]Bariatric Endoscopy Clinic for 1 month post TORe and 10 months post APC revision, obesity class I and weight management ?? The patient is a 54 year old female with past medical history as below presenting to us with 1 month post TORe and 10 months post APC revision, obesity class I and weight management Interval: Patient is a 54-year-old female presenting for follow-up now 1 month post EGBR and 10 months after an APC revision. Patient reports feeling well and denies any discomfort, pain, nausea, or vomiting. She is able to consume her shakes without any issues and is meeting her dietary goals. She has resumed cardio exercises and plans to start using a rowing machine for strength training. She reports high energy levels and good sleep quality, rating both as 10/10. She notes significant changes in her clothing fit, rating it as 10/10 for looseness. Her bowel movements are normal, and she does not experience hunger, although she occasionally has cravings triggered by smells. Patient is currently taking omeprazole twice daily and sucralfate four times daily, taking as prescribed. She is also taking Bariatric Fusion chewable multivitamins, 2 in the morning and 2 in the evening. She has a history of trying Topamax and Wellbutrin for weight loss but discontinued them due to side effects and never started injections due to cost. Patient has lost 17 pounds since her endoscopic gastric bypass revision, with a current weight of 169 pounds, down from a pre-procedure weight of 186 pounds. She has lost a total of 62 pounds since her initial weight of 231 pounds. Past Diagnostic Results: - FibroScan: No hepatic steatosis detected. Anthropometrics Weight History Weight Change Height 5 ft 1.22 in Current Weight BMI 169 lbs 31 Initial Program Weight BMI 231 lbs (BMI 42.25) -62 lbs Procedure Weight BMI 216 lbs (BMI 39) APC 186 lbs (BMI 35) TORe 9.13 %TWL Last Visit Weight 186 lbs (35 BMI) [facility] 183 lbs (34.5) home -17 lbs Non-Scale Progress (1 is low and 10 is high) 1 2 3 4 5 6 7 8 9 10 Energy [] [] [] [] [] [] [] [x] [] [] Sleep [] [] [] [] [] [] [] [x] [] [] Looser Fitting Clothing (1 is tight and 10 is baggy) [] [] [] [] [] [] [] [] [] [x] Daily Movement [] [] [] [] [] [] [] [x] [] [] Physical Fitness [] [] [] [] [] [x] [x] [] [] [] Appetite/Hunger (1 is low hunger/ 10 is high hunger) [x] [] [] [] [] [] [] [] [] [] Cravings (1 is no cravings/ 10 is frequent cravings) [] [] [x] [] [] [] [] [] [] [] Physical Pain (1 is no pain/ 10 is worst pain) [x] [] [] [] [] [] [] [] [] [] Prior History/ note from last VV 01/22/2024, Dr. Thomas: Melissa Nichols has a history of obesity since childhood. Comorbidities are: obesity class III, vitamin D deficiency, complex endometrial hyperplasia, anemia, degenerative joint disease, arthritis, positive JESSICA (nodules on joints f/u with Bobbin Winder Dr. Woo) and hypothyroid. Melissa Nichols underwent RYGB at [place] with Dr. Read on 04/2004. Barretts Esophagus prior to RYGB. no complications post RYGB. She denies having any reflux or heartburn. 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 The patient then experienced weight regain in 2019 and now weighs 231 lbs. The patient is here today complaining of the ability to eat larger portions and has satiety that does not last. Weight gain/regain and Obesity disease: The patient reports could eat several high caloric meals and beverages per day despite not feeling very hungry. Also not feeling satiety or full after eating several meals. Reports craving to eat throughout the day. This has resulted in weight gain/regain and worsening of obesity. Patient has tried to control the diet and be able to lose weight up to 20 lbs. Unfortunately, the patient would subsequently experience rebound weight regain following lifestyle modification interventions (diet + exercise). Patient has tried increasing physical activity or exercise, Weight Watcher, Fast metabolism diet (eat 4-6 small meals a day), Keto diet, high protein/low carb sugar diets, Intermittent fasting, Meal replacement plan, multiple dietitian healthy diets (low carbs, low fat, high protein diets), behavioral therapy and baritastic phone shen. Patient has tried medications (Topamax, Phen fen) and is following obesity medicine. She is not interested in revisional bariatric surgery. Patient exercises 4 times a week for 20-30 min every time: walking, chair yoga, treadmil, bike.Unfortunately, despite all the above interventions, patient's weight problem has started to severely affect patient's lifestyle and health. Specifically, patient has been experiencing ACL/MCL Repair from torn meniscus, also broke her ankle in 2021 which is exacerbated after walking 0.5-1 miles and this is now impairing the patient from been more physically active. Melisas Violeta Nichols was seen by primary care, orthopedics, bariatric specialities who recommended to lose weight and weight loss interventions. 24 hrs Diet recall: Following post liquid diet Wakes up to eat: No Current Exercise Activity: Rowing machine, 2 mile walk outdoors, elliptical. Weight History: Pre-RYGB weight: 280 lbs (BMI 51.2). Post-RYGB ava: 160 lbs (BMI 29.3). Ht 154.9 cm (5' 1) Wt 76.7 kg (169 lb) LMP 09/03/2013 BMI 31.93 kg/m LMP 09/03/2013 Goal weight BMI < 27: 162.3 Goal weight BMI < 30: 180.3 Last 5 Encounter Wt Readings: Date: Wt: 08/04/2024 80.3 kg (177 lb) 07/28/2024 84.4 kg (186 lb) 07/28/2024 84.4 kg (186 lb 1.1 oz) 07/14/2024 83 kg (183 lb) 07/14/2024 83 kg (183 lb) Risk factors: Tobacco use: No EtOH intake: Rare social NSAIDs: No H. Pylori: No (EGD 2003 prior showed barretts repeat EGD normal) FH:No, brother recently diagnosed with rectal cancer and father with liver and pancreatic ca PH: No Relevant Medications: Phen fin in the past Topamax SE of nausea, not feeling well Wellbutrin in the past Omeprazole 40 mg BID Carafate 1 gram QID Vitamins/Minerals Supplements: - Vitamin D3 - Calcium 1200 mg - Multivitamin bariatric fusion not taking recommended amount Relevant Bariatric Procedures/Surgeries Bariatric Surgeon: Jacek at [facility] Bariatric Surgery: 2004 Baisai-en-Y Gastric Bypass (RYGB APC on 10/30/23; TORe procedure 07/27/24 Past Medical History: PAST MEDICAL HISTORY Diagnosis Date Broken ankle Right ankle no surgery Hypothyroidism Melanoma (HCC) Pneumonia 11/25/2018 Past Surgical History: PAST SURGICAL HISTORY Procedure Laterality Date DILATION & CURETTAGE DX&/THER NONOBSTETRIC 08/05/2013 Polypectomy EGD BARIATRIC 10/2023 EGD W/O BRSH SPEC VARICIES INJ 11/05/2023 ENDOVENOUS LASER, 1ST VEIN 07/22, 12/22, 03/24 [address] Linton GASTRIC BYPASS HX 2005 HYSTERECTOMY HX KNEE SURGERY HX Right 11/10/2019 ACL/MCL/Miniscus LIG/TRNSXJ FLP TUBE ABDL/VAG APPR UNI/BI 2010 MELANOMA OF SKIN BIOPSY SYN RPT MELANOMA OF SKIN EXCISION SYN RPT REPAIR UMBILICAL HERNIA 2002, 2003 mesh SKIN BIOPSY HX Medications: Current Outpatient Medications Medication Sig Dispense Refill CARAFATE [address] 1 tablet in cup with 15ml-30ml warm water. Allow to dissolve into a slurry and drink. Repeat FOUR times daily as directed. Start on 07/30/24. 120 tablet 2 acetaminophen (TYLENOL) 500 mg/15 mL liqd Take 15 mL by mouth every 6 hours as needed for pain. Do not exceed 5 doses in 24 hours. 1000 mL 0 ondansetron orally disintegrating (ZOFRAN ODT) 8 mg disintegrating tablet Take 1 tablet by mouth every 8 hours as needed for nausea/vomiting. 20 tablet 0 scopolamine (TRANSDERM-SCOP) patch 1.5 mg/72 hr (delivers 1 mg over 3 days) Apply 1 Patch as directed every 72 hours. 4 Patch 0 omeprazole (PRILOSEC) 40 mg capsule Take 1 capsule by mouth two times a day. Open capsule sprinkle over applesauce and take 30 minutes before breakfast and 30 minutes before dinner 180 capsule 0 ergocalciferol, vitamin D2, (DRISDOL) 50,000 unit capsule Take 1 capsule by mouth once each week. levothyroxine (SYNTHROID) 100 mcg tablet Take 1 tablet by mouth once daily. Multivitamin capsule Take 1 capsule by mouth once daily. No current facility-administered medications for this visit. Allergies: ALLERGIES No Known Allergies Family History: No known colon cancer, polyps, IBD, celiac disease, pancreatic disease, or liver disease. FAMILY HISTORY Problem Relation Age of Onset Stroke Mother 42 DVT Mother other (CHF) Mother other (Bipolar Disorder) Mother dx after stroke Alcohol/Drug Father alcohol Diabetes Father Hypertension Father Cancer Father liver and pancreatic Hypertension Sister DVT Sister Rectal Cancer Brother COPD Brother Alcohol abuse Brother Hypertension Maternal Grandmother Hyperlipidemia Maternal Grandmother COPD Maternal Grandmother Diabetes Paternal Grandmother Kidney failure Paternal Grandmother Diabetes Paternal Grandfather No Known Problems Daughter No Known Problems Daughter ? Social History: Social History Tobacco Use Smoking status: Never Passive exposure: Never Smokeless tobacco: Never Vaping Use Vaping status: Never Used Substance Use Topics Alcohol use: No Drug use: No Tobacco: Tobacco Use: Never Alcohol: Alcohol Use: No Illicits: Drug Use: No Review of Systems: Review of Systems Constitutional: (-) fever, (-) night sweats Eyes: (-) eye irritation, (-) blurred vision Respiratory: (-) shortness of breath, (-) difficulty breathing Gastrointestinal: (-) nausea, (-) vomiting, (-) abdominal pain Musculoskeletal: (-) pain 12 point ROS otherwise negative. Physical Examination: Ht 154.9 cm (5' 1) Wt 76.7 kg (169 lb) LMP 09/03/2013 BMI 31.93 kg/m Physical Exam virtual/videocall encounter: Patient reported height 5'1 and weight 169 lbs LMP 09/03/2013 General - Normal, healthy, cooperative, in no acute distress Able to interact verbally by video conference Psych - ORIENTATION: normal to time place, person and situation Mood/Affect: AFFECT AND MOOD: Normal Head/Neuro - Normal size and shape Facial appearance normal Pulmonary - respiratory effort normal Cardiovascular - patient describes extremities normal, warm, no cyanosis,no clubbing and no edema Abdominal - Flat, Visible protrusions or hernias: No Incisions/scars: None, Areas of pain/tenderness: denies Skin - abnormal lesions not visualized Motor - patient seen sitting with Normal appearing strength and coordination ? Laboratory Data: Lab Results Component Value Date WBC 8.96 07/29/2024 WBC 3.17 (L) 07/14/2024 WBC 3.18 (L) 04/23/2024 HCT 36.5 07/29/2024 HCT 38.6 07/14/2024 HCT 40.0 04/23/2024 PLT 207 07/29/2024 PLT 216 07/14/2024 PLT 260 04/23/2024 Lab Results Component Value Date ALB 4.0 07/29/2024 TBILI 0.4 07/29/2024 Lab Results Component Value Date INR 1.0 07/14/2024 No components found for: VITDT, 25VITD, 25OHVITAMIND Lab Results Component Value Date B12 601 07/14/2024 TSH Date Value Ref Range Status 10/13/2009 1.75 0.34 - 5.60 UIU/ML Final Comment: TSH: ULTRASENSITIVE METHOD- LOWER DETECTION LIMIT = 0.01 UIU/ML No components found for: GHBA1C, [id number] WBC (k/uL) Date Value 07/29/2024 8.96 RBC (m/uL) Date Value 07/29/2024 3.92 Hemoglobin (g/dL) Date Value 07/29/2024 11.9 Hematocrit (%) Date Value 07/29/2024 36.5 MCV (fL) Date Value 07/29/2024 93.1 MCH (pg) Date Value 07/29/2024 30.4 MCHC (g/dL) Date Value 07/29/2024 32.6 RDW-CV (%) Date Value 07/29/2024 12.3 Platelet Count (k/uL) Date Value 07/29/2024 207 MPV (fL) Date Value 07/29/2024 9.1 Potassium (mmol/L) Date Value 07/29/2024 4.1 06/30/2019 3.3 Sodium (mmol/L) Date Value 07/29/2024 139 06/30/2019 137 Creatinine (mg/dL) Date Value 07/29/2024 0.72 06/30/2019 0.79 BUN (mg/dL) Date Value 07/29/2024 13 06/30/2019 8 Glucose (mg/dL) Date Value 07/29/2024 92 06/30/2019 138 INR (no units) Date Value 07/14/2024 1.0 TSH (UIU/ML) Date Value 10/13/2009 1.75 Glucose (mg/dL) Date Value 07/29/2024 92 BUN (mg/dL) Date Value 07/29/2024 13 Creatinine (mg/dL) Date Value 07/29/2024 0.72 Sodium (mmol/L) Date Value 07/29/2024 139 Potassium (mmol/L) Date Value 07/29/2024 4.1 Chloride (mmol/L) Date Value 07/29/2024 104 CO2 (mmol/L) Date Value 07/29/2024 24 Protein, Total (g/dL) Date Value 07/29/2024 6.6 Albumin (g/dL) Date Value 07/29/2024 4.0 Calcium, Total (mg/dL) Date Value 07/29/2024 9.1 Alkaline Phosphatase (U/L) Date Value 07/29/2024 77 Bilirubin, Total (mg/dL) Date Value 07/29/2024 0.4 AST (U/L) Date Value 07/29/2024 21 ALT (U/L) Date Value 07/29/2024 21 Glucose (mg/dL) Date Value 07/29/2024 92 06/30/2019 138 Creatinine (mg/dL) Date Value 07/29/2024 0.72 06/30/2019 0.79 Potassium (mmol/L) Date Value 07/29/2024 4.1 06/30/2019 3.3 AST (U/L) Date Value 07/29/2024 21 06/30/2019 21 ALT (U/L) Date Value 07/29/2024 21 06/30/2019 24 Hemoglobin A1C (%) Date Value 07/14/2024 5.3 Cholesterol, Total Date Value 07/14/2024 199 mg/dL 10/13/2009 173 MG/DL HDL Cholesterol Date Value 07/14/2024 53 mg/dL 10/13/2009 61 MG/DL ] LDL Cholesterol Date Value 07/14/2024 133 mg/dL 10/13/2009 92 MG/DL Triglyceride Date Value 07/14/2024 65 mg/dL 10/13/2009 101 MG/DL Albumin/Creat Ratio (mg/g) Date Value 07/14/2024 <9 ] Imagin07/14/2024 Fibroscan Impression The liver stiffness is 4.8 kPa which corresponds to 97% chance of stage F0-F2 fibrosis. The CAP analysis showed grade S0 of liver steatosis. 10/16/2023 Fibroscan Impression The reading was adequate. FS =5.4 kPA. The CAP score is 249 and corresponds to steatosis grade of S1. Endoscopy: 07/27/2024 EGBR Findings: The examined esophagus was normal. The Z line was regular at 40 cm from incisors. The GE junction and hiatus were at 40 cm from incisors. Evidence of a Abisai-en-Y gastric bypass (RYGB) was found. The gastrojejunal anastomosis (GJA) was characterized by normal appearing mucosa. No ulcers, erosion, sutures or zeke. The GJA outlet was dilated 45 mm diameter and was traversed. The gastric pouch extended from 40 cm to 44 cm from the incisors. No gastro-gastric fistula found. The jejunum was normal at 60 cm (both Abisai/alimentary and blind limbs). No food or debris in the blind limb. The small bowel was not dilated and there was no evidence of excess fluid or distal obstruction. The jejuno-jejunal anastomosis was not evaluated. At the conclusion of the diagnostic endoscopy 120 mL of a dilute simethicone solution was instilled in the duodenum and an esophageal overtube with removable obturator was placed into the esophagus over the endoscope. Then the scope was exchanged for an upper double channel scope. REVISION OF GASTROJEJUNAL ANASTOMOSIS Attention was then given to the gastrojejunal anastomosis. The margin of the anastomosis was treated with Argon Plasma Coagulation (APC; forced APC, 0.8 L/min, 70 Moralez). The suturing device was then used to place 9 stitches into the tissue, in pursestring fashion, surrounding the anastomosis. The suture was then tightened and secured over a 6 mm bougie. Additional 1 interrupted suture was placed to reinforce pursestring sutures and for gastroplasty. Following the procedure a diagnostic endoscope was used to evaluate the anatomy, to look for signs of trauma or hemorrhage, and to remove the overtube. There were no mucosal injuries to the proximal esophagus. 2 syringes of hemostatic gel matrix (Purastat) were applied to the site. Impression: - No specimens collected. Estimated Blood Loss: Estimated blood loss was minimal. 10/30/2023 EGD/APC Findings: The examined esophagus was normal. The Z line was regular at 35 cm from incisors. The GE junction and hiatus were at 35 cm from incisors. Evidence of a Abisai-en-Y gastric bypass (RYGB) was found. The gastrojejunal anastomosis (GJA) was characterized by normal appearing mucosa. No ulcers, erosion, sutures or zeke. The GJA outlet was dilated 30 mm diameter and was traversed. The gastric pouch extended from 35 cm to 40 cm from the incisors. No gastro-gastric fistula found. The jejunum was normal at 60 cm (both Abisai/alimentary and blind limbs). No food or debris in the blind limb. The small bowel was not dilated and there was no evidence of excess fluid or distal obstruction. The jejuno-jejunal anastomosis was not evaluated. At the conclusion of the diagnostic endoscopy 120 mL of a dilute simethicone solution was instilled in the jejunum. APC REVISION OF GASTROJEJUNAL ANASTOMOSIS Attention was then given to the gastrojejunal anastomosis. The margin of the anastomosis was treated with Argon Plasma Coagulation for revision. There were no mucosal injuries to the proximal esophagus. The examined jejunum was normal. Impression: - Normal examined jejunum. - No specimens collected. Estimated Blood Loss: Estimated blood loss: none. Assessment and Recommendations: ??54 year old female with history as per HPI presenting to GI/Bariatric Endoscopy clinic for evaluation of 1 month post TORe and 10 months post APC revision, obesity class I and weight management . Weight History: Pre-RYGB weight: 280 lbs (BMI 51.2). Post-RYGB ava: 160 lbs (BMI 29.3). weight: 234 lbs (BMI 42.80) weight: 216 lbs (BMI 41.9) weight: 213 lbs (BMI 40.25) weight: 217 lbs (BMI 41) Pre APC weight:216 lbs (BMI 39) 1 month post APC weight: 200 lbs (BMI 36.5) Represents 7.4% TBWL 3 months after APC: 185 lbs (14.35% TBWL) 6 month post APC weight: 178 lbs (BMI 33) Represents 17.5% TBWL 8 month and 2 weeks post APC weight: 183 lbs (BMI 34.58) Represents 20 % TBWL Pre TORe weight: 186 lbs (BMI 35) 1 month post TORe and 10 months post APC revision weight: 169 lbs (BMI 31.93) Representing 9.13 % TBWL Recommendations: We discussed your progress following your endoscopic gastric bypass revision: - You are now 1 month post-endoscopic gastric bypass revision and 10 months post-APC revision. You reported no discomfort, pain, nausea, vomiting, or issues with drinking your shakes. - You no longer have lifting restrictions. I recommend incorporating cardio and strength training exercises into your routine. You may resume using the rower as part of your strength training. - Your energy, sleep, and daily movements are normal. You noted significant changes in how your clothes fit, which is a positive sign of progress. - You are tracking ahead of schedule with a total body weight loss of 9.13% since the procedure. Your current weight is 169 lbs, down from 186 lbs pre-procedure and 231 lbs at your initial visit. This reflects a total weight loss of 62 lbs. We discussed your diet and medications: - Continue following phases 2 and 3 of your guidebook with liquid diets until your next visit with Trey Ceron RD. - You are currently taking: - Open capsule omeprazole twice daily. Continue this for at least 2 more months. - Sucralfate four times daily. You may stop this after transitioning to soft proteins - Bariatric Fusion multivitamins (2 chewables in the morning and 2 in the evening). Continue as directed. - You should continue crushing your medications until you transition to soft proteins. After that, you may stop crushing them, except for the open capsule omeprazole please continue to open capsule. We discussed your upcoming appointments and follow-up: - Your next visit with Trey is scheduled for Friday, September 06, to discuss transitioning to soft proteins. - You are scheduled to see Dr. Oliveros on September 09. - You will see Trey and again on October 20 for your 3-month follow-up, followed by Adali on October 22. - Lab work will be ordered for your 6-month follow-up. If you would like your thyroid levels checked, we can include that and send the results to your primary care physician for review. Additional notes: - You do not need a repeat FibroScan, as your previous results showed zero fat in your liver. - If you experience any issues or have questions, please contact our office. Keep up the great work on your liquid diet and exercise routine! VIRTUAL VISIT I spent a total of 30 minutes during this real-time, interactive virtual clinical encounter, which was conducted virtually using HIPAA compliant videoconferencing technology. Greater than 50% of the time spent was devoted to counseling and coordinating care including review of records, pertinent lab data and studies, as well as discussing diagnostic evaluation and work up, planned therapeutic interventions and future disposition of care. This includes any additional research needed to obtain further information in formulating the plan of care of this patient. This includes counseling the patient about her disease and diagnosis, specifically: complications of bariatric surgery, obesity class I and weight management We reviewed coronavirus precautions including avoiding public places, maintaining 6 feet of distance from other persons when in public, no sick contacts, and fastidious handwashing. Thank you for allowing me to participate in the care of your patient. If you have any questions or concerns, please feel free to contact me. Maranda Castro APRN.CNP GI Bariatric Endoscopy 08/27/2024 9:28 AM Answers submitted by the patient for this visit: Review of Systems Gastroenterology (Submitted on 08/23/2024) Night Sweats: No Unitentional Weight Change: No Difficulty Breathing: No A feeling of fullness or have belly pain after eating: No Food getting stuck in your throat or chest after eating: No Regurgitation - that is, food or liquid coming back up into your throat or mouth without vomiting, or feel burning behind your breast bone: No Loss of appetite: No Black tarry stools: No The feeling like you need to empty your bowels right away - that is, feel as if you would have an accident: No Bowel incontinence - that is, have an accident because you cannot make it to the bathroom in time: No Pain in rectum or anus during bowel movements: No Problems with jaundice - that is, yellow discoloration of your skin or eyes, now or in the past: No Problems with having to flush the toilet more than two times due to oily stool, or see stool floating with oil: No documented in this encounter [facility] 08-27-2024 Note HNO ID: [id number] Author: MARANDA CASTRO APRN.CNP Service: ? Author Type: Nurse Practitioner Type: Progress Notes Filed: 08/27/2024 09:29 Note Text: Demetri Arnold DO [address] [place] [address] [place] [id number] GI/Bariatric Endoscopy Clinic Visit Gastroenterology, Hepatology, and Nutrition Department ?[facility] ? 08/27/2024 ? The patient encounter is a virtual/telephone visit today, 08/27/2024, in lieu of an office visit due to the current COVID-19 pandemic crisis and need for social distancing. Reason for Visit: 1 month post TORe and 10 months post APC revision, obesity class I and weight management Patient is: Established patient Location of Provider: Hospital Location of Patient: Home Consent for virtual care, including informing the patient that insurance will be billed, and that in-person care is available in case of emergencies or as needed otherwise, was discussed at the time of scheduling. Dear Demetri Arnold, DO, ? I had the pleasure of seeing Melissa Nichols in the [facility] GI/Bariatric Endoscopy Clinic for 1 month post TORe and 10 months post APC revision, obesity class I and weight management ?? The patient is a 54 year old female with past medical history as below presenting to us with 1 month post TORe and 10 months post APC revision, obesity class I and weight management Interval: Patient is a 54-year-old female presenting for follow-up now 1 month post EGBR and 10 months after an APC revision. Patient reports feeling well and denies any discomfort, pain, nausea, or vomiting. She is able to consume her shakes without any issues and is meeting her dietary goals. She has resumed cardio exercises and plans to start using a rowing machine for strength training. She reports high energy levels and good sleep quality, rating both as 10/10. She notes significant changes in her clothing fit, rating it as 10/10 for looseness. Her bowel movements are normal, and she does not experience hunger, although she occasionally has cravings triggered by smells. Patient is currently taking omeprazole twice daily and sucralfate four times daily, taking as prescribed. She is also taking Bariatric Fusion chewable multivitamins, 2 in the morning and 2 in the evening. She has a history of trying Topamax and Wellbutrin for weight loss but discontinued them due to side effects and never started injections due to cost. Patient has lost 17 pounds since her endoscopic gastric bypass revision, with a current weight of 169 pounds, down from a pre-procedure weight of 186 pounds. She has lost a total of 62 pounds since her initial weight of 231 pounds. Past Diagnostic Results: - FibroScan: No hepatic steatosis detected. Anthropometrics Weight History Weight Change Height 5 ft 1.22 in Current Weight BMI 169 lbs 31 Initial Program Weight BMI 231 lbs (BMI 42.25) -62 lbs Procedure Weight BMI 216 lbs (BMI 39) APC 186 lbs (BMI 35) TORe 9.13 %TWL Last Visit Weight 186 lbs (35 BMI) [facility] 183 lbs (34.5) home -17 lbs Non-Scale Progress (1 is low and 10 is high) 1 2 3 4 5 6 7 8 9 10 Energy [] [] [] [] [] [] [] [x] [] [] Sleep [] [] [] [] [] [] [] [x] [] [] Looser Fitting Clothing (1 is tight and 10 is baggy) [] [] [] [] [] [] [] [] [] [x] Daily Movement [] [] [] [] [] [] [] [x] [] [] Physical Fitness [] [] [] [] [] [x] [x] [] [] [] Appetite/Hunger (1 is low hunger/ 10 is high hunger) [x] [] [] [] [] [] [] [] [] [] Cravings (1 is no cravings/ 10 is frequent cravings) [] [] [x] [] [] [] [] [] [] [] Physical Pain (1 is no pain/ 10 is worst pain) [x] [] [] [] [] [] [] [] [] [] Prior History/ note from last VV 01/22/2024, Dr. Thomas: Melissa Nichols has a history of obesity since childhood. Comorbidities are: obesity class III, vitamin D deficiency, complex endometrial hyperplasia, anemia, degenerative joint disease, arthritis, positive JESSICA (nodules on joints f/u with Bobbin Winder Dr. Woo) and hypothyroid. Melissa Nichols underwent RYGB at [place] with Dr. Read on 04/2004. Barretts Esophagus prior to RYGB. no complications post RYGB. She denies having any reflux or heartburn. 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 The patient then experienced weight regain in 2019 and now weighs 231 lbs. The patient is here today complaining of the ability to eat larger portions and has satiety that does not last. Weight gain/regain and Obesity disease: The patient reports could eat several high caloric meals and beverages per day despite not feeling very hungry. Also not feeling satiety or full after eating several meals. Reports craving to eat throughout the day. This has resulted in weight gain/regain and worsening of obesity. Patient has tried to c (more content not included)... [facility] 08-04-[address] - 08/04/2024 9:23 AM EDT Nutrition Intervention 08/04/2024: Modify type and amount of food at meals and snacks 1. Continue with phase 3 protein shakes for additional 4 weeks; -Protein shakes: 150-200 calories, 15-30 grams of protein, <5-10 grams of sugar 2. Protein Goal: 72 grams a day 3. Begin chewable forms of bariatric vitamins -Bariatric Fusion Complete Chewable (2 in AM, 2 in the PM) 4. 64 oz of fluid per day (zero calorie, no carbonation, no caffeine, no alcohol) 5. Physical Activity: increase as tolerated. 6. Separate eating and drinking by 30 minutes - Do not advance to Stage 4 until at least 45 days post-op and protein goals are consistently being met * Stage 4: focus on meeting protein goals through soft, moist protein foods. Introduce appropriate vegetables, fruits, starches as able - Do not advance to Stage 5 until at least 60 days post-op and protein goals are consistently being met documented in this encounter [facility] 08-04-2024 History of Present illness Narrative [facility] Nutrition Therapy: Virtual Consult - Re-assessment I have communicated my name and active licensure. The patient s identity and physical location were verified at the time of this visit. Either the patient or their legal medical detail representative has been informed of the risks and benefits of -- and alternatives to -- treatment through a remote evaluation and consents to proceed with the evaluation remotely. Nutrition Diagnosis: Altered Gastrointestinal Tract Function, related to, S/P bariatric surgery, as evidenced by surgical and weight history RECOMMENDED MALNUTRITION DIAGNOSIS: NO MALNUTRITION IDENTIFIED NUTRITION CARE PLAN: Nutrition Intervention 08/04/2024: Modify type and amount of food at meals and snacks 1. Continue with phase 3 protein shakes for additional 4 weeks; -Protein shakes: 150-200 calories, 15-30 grams of protein, <5-10 grams of sugar 2. Protein Goal: 72 grams a day 3. Begin chewable forms of bariatric vitamins -Bariatric Fusion Complete Chewable (2 in AM, 2 in the PM) 4. 64 oz of fluid per day (zero calorie, no carbonation, no caffeine, no alcohol) 5. Physical Activity: increase as tolerated. 6. Separate eating and drinking by 30 minutes - Do not advance to Stage 4 until at least 45 days post-op and protein goals are consistently being met * Stage 4: focus on meeting protein goals through soft, moist protein foods. Introduce appropriate vegetables, fruits, starches as able - Do not advance to Stage 5 until at least 60 days post-op and protein goals are consistently being met Nutrition Monitoring & Evaluation: BMI <30 Need for Follow up: as already scheduled (Call [phone] option 3) PROGRESS: Interval History: 1 week post TORe (07/28/24) (9 months post APC (10/30/23)). Current weight loss tracking ahead of average. Diet recall indicates tolerance to Phase 3 diet. Patient estimates to be consuming 600 kcal/day inadequate intake, 90-120 gm protein/day adequate intake, and 90 oz/day adequate intake. Taking all recommended vitamin/minerals. Labs: reviewed 07/14/24. Exercise: none at this time. Will increase as tolerated. Resting Metabolic Rate: 1348 Energy needs for weight loss: 800-1000 Protein needs: 72 grams protein per day (1.2 g/kg IBW) Anthropometrics Weight History Weight Change Height 5 ft 1 in Current Weight BMI 177 lbs 33.44 Initial Program Weight BMI 231 lbs 43.6 -54 lbs Procedure Weight BMI 186 lbs (pre TORe) 216 lbs (pre APC) 40.8 4.8 %TWL 18 % TWL (post APC) Last Visit Weight 186 lbs -9 lbs Non-Scale Progress (1 is low and 10 is high) 1 2 3 4 5 6 7 8 9 10 Energy [] [] [] [] [] [] [] [] [] [] Sleep [] [] [] [] [] [] [] [] [] [] Looser Fitting Clothing (1 is tight and 10 is baggy) [] [] [] [] [] [] [] [] [] [] Daily Movement [] [] [] [] [] [] [] [] [] [] Physical Fitness [] [] [] [] [] [] [] [] [] [] Appetite/Hunger (1 is low hunger/ 10 is high hunger) [] [] [] [] [] [] [] [] [] [] Cravings (1 is no cravings/ 10 is frequent cravings) [] [] [] [] [] [] [] [] [] [] Physical Pain (1 is no pain/ 10 is worst pain) [] [] [] [] [] [] [] [] [] [] Nutrition Intervention 07/14/2024: Modify type and amount of food at meals and snacks 1. Begin liquid diet with clear liquids and protein shakes 2 days before procedure. -Should have last protein shake around 6pm night before procedure and nothing to eat or drink after midnight. -Day of procedure nothing to eat or drink 2. Review Endoscopic weight loss procedure guidelines (will be given guidebook day of procedure) 3. Advance from clear liquids to Stage 3 protein shakes 48 hours following procedure for a 45 day duration -Protein shakes should have 150-200 calories, minimum of 15 grams of protein, maximum of 5 gram of sugar (Slimfast High Protein (lactose-free), Atkins Advantage, Boost Glucose Control) 4. Aim for 64 oz fluid/day (zero calorie, no carbonation, no caffeine, no alcohol) 5. Aim for 72 g protein/day 6. Take daily chewable multivitamins and daily chewable calcium citrate OR trial with Bariatric Fusion Complete Chewables (2 in the morning, 2 at night) 7. Eat/drink protein shakes at regular intervals (every ~3 hours) 8. Separate eating and drinking by 30 minutes 9. Recommend exercising, overall goal of 150-200 minutes per week (including both cardio and weight resistance) - Do not advance to Stage 4 until at least 45 days post-op and protein goals are consistently being met * Stage 4: focus on meeting protein goals through soft, moist protein foods. 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 Resting Metabolic Rate: 1405 Malnutrition Screening Significant unintentional weight loss? No Eating less than 75% of usual intake for more than 2 weeks? No Potential Signs of Inflammation: no identifiable sources Nutritional status: Education Materials Provided: None this visit READINESS TO LEARN Cognitive ability: Alert and oriented Motivation to learn: Interested Family support: Unable to assess - Family not present Instruction provided to: Patient Patient learns best by: Multiple Methods Factors affecting learning: None Physical limitations affecting learning: None Likelihood of Adherence: Moderate Referred by: Dr. Thomas MNT Billing Type: Re-assess/15 min 1 unit SIGNATURE: Angie Roth RD PATIENT NAME: Melissa Nichols DATE: 08/04/2024 TIME: 8:16 AM PAGER: documented in this encounter [facility] 08-04-2024 Note HNO ID: [id number] Author: ANGIE ROTH RD Service: ? Author Type: Registered Dietitian Type: Progress Notes Filed: 08/04/2024 09:23 Note Text: [facility] Nutrition Therapy: Virtual Consult - Re-assessment I have communicated my name and active licensure. The patient?s identity and physical location were verified at the time of this visit. Either the patient or their legal medical detail representative has been informed of the risks and benefits of -- and alternatives to -- treatment through a remote evaluation and consents to proceed with the evaluation remotely. Nutrition Diagnosis: Altered Gastrointestinal Tract Function, related to, S/P bariatric surgery, as evidenced by surgical and weight history RECOMMENDED MALNUTRITION DIAGNOSIS: NO MALNUTRITION IDENTIFIED NUTRITION CARE PLAN: Nutrition Intervention 08/04/2024: Modify type and amount of food at meals and snacks 1. Continue with phase 3 protein shakes for additional 4 weeks; -Protein shakes: 150-200 calories, 15-30 grams of protein, <5-10 grams of sugar 2. Protein Goal: 72 grams a day 3. Begin chewable forms of bariatric vitamins -Bariatric Fusion Complete Chewable (2 in AM, 2 in the PM) 4. 64 oz of fluid per day (zero calorie, no carbonation, no caffeine, no alcohol) 5. Physical Activity: increase as tolerated. 6. Separate eating and drinking by 30 minutes - Do not advance to Stage 4 until at least 45 days post-op and protein goals are consistently being met * Stage 4: focus on meeting protein goals through soft, moist protein foods. Introduce appropriate vegetables, fruits, starches as able - Do not advance to Stage 5 until at least 60 days post-op and protein goals are consistently being met Nutrition Monitoring AND Evaluation: BMI <30 Need for Follow up: as already scheduled (Call [phone] option 3) PROGRESS: Interval History: 1 week post TORe (07/28/24) (9 months post APC (10/30/23)). Current weight loss tracking ahead of average. Diet recall indicates tolerance to Phase 3 diet. Patient estimates to be consuming 600 kcal/day inadequate intake, 90-120 gm protein/day adequate intake, and 90 oz/day adequate intake. Taking all recommended vitamin/minerals. Labs: reviewed 07/14/24. Exercise: none at this time. Will increase as tolerated. Resting Metabolic Rate: 1348 Energy needs for weight loss: 800-1000 Protein needs: 72 grams protein per day (1.2 g/kg IBW) Anthropometrics Weight History Weight Change Height 5 ft 1 in Current Weight BMI 177 lbs 33.44 Initial Program Weight BMI 231 lbs 43.6 -54 lbs Procedure Weight BMI 186 lbs (pre TORe) 216 lbs (pre APC) 40.8 4.8 %TWL 18 % TWL (post APC) Last Visit Weight 186 lbs -9 lbs Non-Scale Progress (1 is low and 10 is high) 1 2 3 4 5 6 7 8 9 10 Energy [] [] [] [] [] [] [] [] [] [] Sleep [] [] [] [] [] [] [] [] [] [] Looser Fitting Clothing (1 is tight and 10 is baggy) [] [] [] [] [] [] [] [] [] [] Daily Movement [] [] [] [] [] [] [] [] [] [] Physical Fitness [] [] [] [] [] [] [] [] [] [] Appetite/Hunger (1 is low hunger/ 10 is high hunger) [] [] [] [] [] [] [] [] [] [] Cravings (1 is no cravings/ 10 is frequent cravings) [] [] [] [] [] [] [] [] [] [] Physical Pain (1 is no pain/ 10 is worst pain) [] [] [] [] [] [] [] [] [] [] Nutrition Intervention 07/14/2024: Modify type and amount of food at meals and snacks 1. Begin liquid diet with clear liquids and protein shakes 2 days before procedure. -Should have last protein shake around 6pm night before procedure and nothing to eat or drink after midnight. -Day of procedure nothing to eat or drink 2. Review Endoscopic weight loss procedure guidelines (will be given guidebook day of procedure) 3. Advance from clear liquids to Stage 3 protein shakes 48 hours following procedure for a 45 day duration -Protein shakes should have 150-200 calories, minimum of 15 grams of protein, maximum of 5 gram of sugar (Slimfast High Protein (lactose-free), Atkins Advantage, Boost Glucose Control) 4. Aim for 64 oz fluid/day (zero calorie, no carbonation, no caffeine, no alcohol) 5. Aim for 72 g protein/day 6. Take daily chewable multivitamins and daily chewable calcium citrate OR trial with Bariatric Fusion Complete Chewables (2 in the morning, 2 at night) 7. Eat/drink protein shakes at regular intervals (every ~3 hours) 8. Separate eating and drinking by 30 minutes 9. Recommend exercising, overall goal of 150-200 minutes per week (including both cardio and weight resistance) - Do not advance to Stage 4 until at least 45 days post-op and protein goals are consistently being met * Stage 4: focus on meeting protein goals through soft, moist protein foods. Introduce appropriate vegetables, fruits, starches as able - Do not advance to Stage 5 until at least 60 days post-op and protein goals are consistently being met Actions to implement interventions: see assessment Diet History: P (more content not included)... [facility] 08-03-2024 Telephone encounter Note Prescription Refill Request: PCP out of office Patient Name: Melissa Nichols PCP: Demetri Arnold MD Past Medical History: Past Medical History: Diagnosis Date Abnormal Pap smear of cervix 2010 Autoimmune disorder (HCC) 11/09/2018 Cancer (CMS/HCC) (HCC) 2016 Cardiac dysrhythmia Chronic anemia Connective tissue disease (HCC) Elevated BP without hypertension GERD (gastroesophageal reflux disease) Grief grief adjustment Hypoglycemia Hypothyroidism Lung nodule Obesity 08 1999 Osteoarthritis 1998, 2001 Varicose veins Vitamin D deficiency Past Surgical History: Past Surgical History: Procedure Laterality Date ABDOMINAL SURGERY 2002 ANTERIOR CRUCIATE LIGAMENT REPAIR Right 11/10/2019 BARIATRIC SURGERY 2004 GASTRIC BYPASS 04 18 2004 HERNIA REPAIR 2002 HYSTERECTOMY OTHER SURGICAL HISTORY Right 05/2016 posterior right calf melanoma removed. OTHER SURGICAL HISTORY 07 10 2012 vein sclerotherapy and 09/2012 TOTAL ABDOMINAL HYSTERECTOMY W/ BILATERAL SALPINGOOPHORECTOMY 09 23 2013 total UPPER GASTROINTESTINAL ENDOSCOPY 11 02 2013 chronic epigastric pain related to patients gastric pouch, no evidence of pathology Allergies: No Known Allergies Problem List: Patient Active Problem List Diagnosis Date Noted Varicose veins of bilateral lower extremities with other complications 05/21/2023 Arthralgia of multiple sites 07/04/2022 Acquired iron deficiency anemia due to decreased absorption 05/14/2022 Morbidly obese (HCC) 12/13/2019 Undifferentiated connective tissue disease (HCC) 11/09/2018 History of gastric bypass 02/09/2017 Vitamin D deficiency 12/13/2014 Osteoarthritis 12/13/2014 Acquired hypothyroidism 12/13/2014 Gastroesophageal reflux disease 12/13/2014 Adenomatous endometrial hyperplasia 09/03/2013 Current Medication List: Current Outpatient Medications on File Prior to Visit Medication Sig Dispense Refill ergocalciferol (Vitamin D2) 1.25 MG (93441 UT) capsule TAKE ONE CAPSULE BY MOUTH ONCE WEEKLY 188 capsule 0 levothyroxine (Synthroid, Levoxyl) 100 MCG tablet Take 1 tablet (100 mcg) by mouth daily. 90 tablet 0 Multiple Vitamin (multivitamin) capsule Take 1 capsule by mouth daily. omeprazole (PriLOSEC) [address] capsule Take 40 mg by mouth twice a day. (Patient taking differently: Take 40 mg by mouth every morning (before breakfast).) No current facility-administered medications on file prior to visit. Chart review performed. The identity and location of the patient was confirmed. Informed consent for treatment previously established. The patient's diagnosis was confirmed and necessity for prescribed drug was verified. Drug(s) to be refilled: levothyroxine The patient does not have underlying conditions or contraindications which preclude continuation of the medication at this time. In my opinion, abrupt discontinuation of this medication would be potentially harmful to the patient and a refill is being provided at this time on an emergency basis. Appropriate follow-up with primary care provider to be scheduled. [facility] 08-03-2024 Miscellaneous Notes Prescription Refill Request: PCP out of office Patient Name: Melissa Nichols PCP: Demetri Arnold MD Past Medical History: Past Medical History: Diagnosis Date Abnormal Pap smear of cervix 2010 Autoimmune disorder (HCC) 11/09/2018 Cancer (CMS/HCC) (HCC) 2016 Cardiac dysrhythmia Chronic anemia Connective tissue disease (HCC) Elevated BP without hypertension GERD (gastroesophageal reflux disease) Grief grief adjustment Hypoglycemia Hypothyroidism Lung nodule Obesity 08 19 1999 Osteoarthritis 1998, 2001 Varicose veins Vitamin D deficiency Past Surgical History: Past Surgical History: Procedure Laterality Date ABDOMINAL SURGERY 2002 ANTERIOR CRUCIATE LIGAMENT REPAIR Right 11/10/2019 BARIATRIC SURGERY 2004 GASTRIC BYPASS 04 18 2004 HERNIA REPAIR 2002 HYSTERECTOMY OTHER SURGICAL HISTORY Right 05/2016 posterior right calf melanoma removed. OTHER SURGICAL HISTORY 07 10 2012 vein sclerotherapy and 09/2012 TOTAL ABDOMINAL HYSTERECTOMY W/ BILATERAL SALPINGOOPHORECTOMY 09 23 2013 total UPPER GASTROINTESTINAL ENDOSCOPY 11 02 2013 chronic epigastric pain related to patients gastric pouch, no evidence of pathology Allergies: No Known Allergies Problem List: Patient Active Problem List Diagnosis Date Noted Varicose veins of bilateral lower extremities with other complications 05/21/2023 Arthralgia of multiple sites 07/04/2022 Acquired iron deficiency anemia due to decreased absorption 05/14/2022 Morbidly obese (HCC) 12/13/2019 Undifferentiated connective tissue disease (HCC) 11/09/2018 History of gastric bypass 02/09/2017 Vitamin D deficiency 12/13/2014 Osteoarthritis 12/13/2014 Acquired hypothyroidism 12/13/2014 Gastroesophageal reflux disease 12/13/2014 Adenomatous endometrial hyperplasia 09/03/2013 Current Medication List: Current Outpatient Medications on File Prior to Visit Medication Sig Dispense Refill ergocalciferol (Vitamin D2) 1.25 MG (90627 UT) capsule TAKE ONE CAPSULE BY MOUTH ONCE WEEKLY 188 capsule 0 levothyroxine (Synthroid, Levoxyl) 100 MCG tablet Take 1 tablet (100 mcg) by mouth daily. 90 tablet 0 Multiple Vitamin (multivitamin) capsule Take 1 capsule by mouth daily. omeprazole (PriLOSEC) [address] capsule Take 40 mg by mouth twice a day. (Patient taking differently: Take 40 mg by mouth every morning (before breakfast).) No current facility-administered medications on file prior to visit. Chart review performed. The identity and location of the patient was confirmed. Informed consent for treatment previously established. The patient's diagnosis was confirmed and necessity for prescribed drug was verified. Drug(s) to be refilled: levothyroxine The patient does not have underlying conditions or contraindications which preclude continuation of the medication at this time. In my opinion, abrupt discontinuation of this medication would be potentially harmful to the patient and a refill is being provided at this time on an emergency basis. Appropriate follow-up with primary care provider to be scheduled. documented in this encounter [facility] 07-30-2024 Telephone encounter Note Spoke with patient post EGBR. Patient states they are doing well post procedure. Endorses no current symptoms, no alarm symptoms. Patient is tolerating sips of clear liquids per post procedure protocol. Reviewed post procedure medications which patient has began taking without difficulty. Discussed continued use of Scopolamine patch, utilizing zofran PRN for nausea control, PRN tylenol for anti-inflammatory properties, and addition of Gas-x chewable tabs for potential trapped gas/ gas cramps PRN. All questions answered and follow ups already scheduled. She is agreeable to plan of care and will contact office with any further questions or concerns. [facility] 07-30-2024 Miscellaneous Notes Spoke with patient post EGBR. Patient states they are doing well post procedure. Endorses no current symptoms, no alarm symptoms. Patient is tolerating sips of clear liquids per post procedure protocol. Reviewed post procedure medications which patient has began taking without difficulty. Discussed continued use of Scopolamine patch, utilizing zofran PRN for nausea control, PRN tylenol for anti-inflammatory properties, and addition of Gas-x chewable tabs for potential trapped gas/ gas cramps PRN. All questions answered and follow ups already scheduled. She is agreeable to plan of care and will contact office with any further questions or concerns. documented in this encounter [facility] 07-28-2024 Note HNO ID: [id number] Author: AZALEA FISHER, Yenni Service: Pharmacy Author Type: [place] Type: Plan of Care Filed: 07/28/2024 17:54 Note Text: Insurance investigation completed Patient has active prescription insurance: No - Patient is self-pay Insurance loaded into [place]: None located at this time Test claim was completed to verify insurance is active: Unsuccessful - Any questions, please reach out to your medication accessories repairer. [facility] 07-28-2024 Nurse Note Pt resting in bed with no complaints at this time. Pt has family member at bedside. Pt and pt family member verbalized understanding of waiting on IP bed. [facility] 07-28-2024 Nurse Note Pt resting in bed with no complaints at this time. Pt has family member at bedside. Pt and pt family member verbalized understanding of waiting on IP bed. Report given to Jamel RN PRE OP LEARNING ASSESSMENT PROCEDURE/SURGERY: GI PROCEDURES: ESG READINESS TO LEARN COGNITIVE ABILITY: Alert and oriented MOTIVATION TO LEARN: Interested FAMILY SUPPORT: High - Very involved in pt care PATIENT LEARNS BEST BY: Individual Instruction FACTORS AFFECTING LEARNING: None PHYSICAL LIMITATIONS AFFECTING LEARNING: None Electronically Signed By: Sue Skinner RN In Department: GASTROENTEROLOGY documented in this encounter [facility] 07-28-2024 Note HNO ID: [id number] Author: LINDA CALVERT RN Service: Nursing Author Type: Registered Nurse Type: Nursing Progress Note Filed: 07/28/2024 15:44 Note Text: Report given to Jamel BULLOCK [facility] 07-28-2024 Nurse Note Report given to Jamel RN [facility] 07-28-2024 Note HNO ID: [id number] Author: LAUREN PRATT APRN.CHIEF CONCIERGE Service: ? Author Type: Nurse Electrician Front Type: Anesthesia Procedure Notes Filed: 07/28/2024 14:01 Note Text: ANESTHESIOLOGY PROCEDURE NOTE Airway General Information Procedure Start Time/Medication Administration: 07/28/2024 1:49 PM Procedure End Time: 07/28/2024 1:49 PM Patient location during procedure: OR Staffing CHIEF CONCIERGE: Lauren Pratt APRN.CHIEF CONCIERGE Performed by: CHIEF CONCIERGE Indications and Patient Condition Indications for airway management: anesthesia Preoxygenated: yes anesthesia circuit Patient position: sniffing Method: asleep Cricoid Pressure: No Manual In-Line Stabilization: Yes Difficult Mask: No Final Airway Details Final airway type: endotracheal airway Final Endotracheal Airway: ETT Cuffed: yes Successful intubation technique: video laryngoscopy Devices used: Valverde and intubating stylet Endotracheal tube insertion site: oral Blade size: #4 ETT size (mm): 7.0 Measured from: teeth Measurement (cm): 22 Placement verified by: capnometry Cormack-Lehane Classification: grade I - full view of glottis Number of attempts at approach: 1 Airway not difficult SIGNATURE: Lauren Pratt APRN.CRNA PATIENT NAME: Melissa Nichols DATE: July 28, 2024 TIME: 2:01 PM CSN: [id number] [facility] 07-28-2024 Nurse Note PRE OP LEARNING ASSESSMENT PROCEDURE/SURGERY: GI PROCEDURES: ESG READINESS TO LEARN COGNITIVE ABILITY: Alert and oriented MOTIVATION TO LEARN: Interested FAMILY SUPPORT: High - Very involved in pt care PATIENT LEARNS BEST BY: Individual Instruction FACTORS AFFECTING LEARNING: None PHYSICAL LIMITATIONS AFFECTING LEARNING: None Electronically Signed By: Sue Skinner RN In Department: GASTROENTEROLOGY [facility] 07-28-2024 Consult note Formatting of th is note is different from the original. Images from the original note were not included. GI/Bariatric Endoscopy consult progress note Gastroenterology, Hepatology, and Nutrition Department ?[facility] Gastroenterology and Hepatology Inpatient Progress Note 24 Hour Events/Subjective 53yo female with obesity s/p RYGB now s/p TORe for bypass revision as management for weight regain. Admitted to observation overnight for nausea/vomiting control. Doing well post-procedure. Medications Current Outpatient Medications Medication Sig Dispense Refill CARAFATE [address] 1 tablet in cup with 15ml-30ml warm water. Allow to dissolve into a slurry and drink. Repeat FOUR times daily as directed. Start on 07/30/24. 120 tablet 2 acetaminophen (TYLENOL) 500 mg/15 mL liqd Take 15 mL by mouth every 6 hours as needed for pain. Do not exceed 5 doses in 24 hours. 1000 mL 0 ondansetron orally disintegrating (ZOFRAN ODT) 8 mg disintegrating tablet Take 1 tablet by mouth every 8 hours as needed for nausea/vomiting. 20 tablet 0 scopolamine (TRANSDERM-SCOP) patch 1.5 mg/72 hr (delivers 1 mg over 3 days) Apply 1 Patch as directed every 72 hours. 4 Patch 0 omeprazole (PRILOSEC) 40 mg capsule Take 1 capsule by mouth two times a day. Open capsule sprinkle over applesauce and take 30 minutes before breakfast and 30 minutes before dinner 180 capsule 0 ergocalciferol, vitamin D2, (DRISDOL) 50,000 unit capsule Take 1 capsule by mouth once each week. levothyroxine (SYNTHROID) 100 mcg tablet Take 1 tablet by mouth once daily. Multivitamin capsule Take 1 capsule by mouth once daily. Current Facility-Administered Medications Medication Dose Route Frequency Provider Last Rate Last Admin lidocaine (PF) 10 mg/mL (1 %) 1-2 mg injection (XYLOCAINE) 0.1-0.2 mL INTRADERMAL PRN Vianey Serrano MD lactated ringers iv infusion 30 mL/hr INTRAVENOUS CONTINUOUS Vianey Serrano MD dexAMETHasone sodium phosphate (PF) 8 mg injection (DECADRON) 8 mg INTRAVENOUS ONCE Vianey Serrano MD scopolamine (delivers 1 mg over 3 days) 1 Patch (TRANSDERM-SCOP) 1 Patch TRANSDERMAL q 72 HR Vianey Serrano MD And [START ON 2024] scopolamine - REMOVE PATCH OTHER q 72 HR Vianey Serrano MD And scopolamine - VERIFY patch OTHER q 8 H Vianey Serrano MD Facility-Administered Medications Ordered in Other Encounters Medication Dose Route Frequency Provider Last Rate Last Admin propofol injection (DIPRIVAN) INTRAVENOUS PRN Lauren Pratt 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.CHIEF CONCIERGE 50 mg at 07/28/24 1357 propofol infusion (DIPRIVAN) INTRAVENOUS X (ONE-STEP ONLY) CONTINUOUS PRN Lauren Pratt APRN.CHIEF CONCIERGE Stopped at 07/28/24 1423 rocuronium injection INTRAVENOUS PRN Lauren Pratt 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.CHIEF CONCIERGE 50 mg at 07/28/24 1346 lactated ringers iv infusion INTRAVENOUS X (ONE-STEP ONLY) CONTINUOUS PRN Lauren Pratt 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.CHIEF CONCIERGE Stopped at 07/28/24 1423 dexAMETHasone sodium phosphate injection (DECADRON) INTRAVENOUS PRN Lauren Pratt, 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.CHIEF CONCIERGE 8 mg at 07/28/24 1353 lidocaine (PF) 10 mg/mL (1 %) injection (XYLOCAINE) INTRAVENOUS PRN Lauren Pratt, 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.CHIEF CONCIERGE 100 mg at 07/28/24 1344 glucagon injection INTRAVENOUS PRN Lauren Pratt APRN.CHIEF CONCIERGE 0.5 mg at 07/28/24 1410 sugammadex injection (BRIDION) INTRAVENOUS PRN NaifLauren childers APRN.CHIEF CONCIERGE 200 mg at 07/28/24 1426 Objective Vitals: BP 116/69 Pulse 61 Temp 36.2 C (97.2 F) (Temporal) Resp 16 Ht 158.8 cm (5' 2.5) Wt 84.4 kg (186 lb 1.1 oz) LMP 09/03/2013 SpO2 100% BMI 33.49 kg/m Intake/Output Summary (Last 24 hours) at 07/28/2024 1436 Last data filed at 07/28/2024 1423 Gross per 24 hour Intake 1000 ml Output -- Net 1000 ml Physical Exam Gen: Pleasant woman lying in bed in NAD HEENT: Anicteric, dry MM, O/P clear PULM: CTAB, no w/r/r CVS: RRR, S1,S2, No m/r/g Abd: Soft, nondistended, nontender, normoactive BS Ext: No edema Neuro: AAOx3, non-focal Labs Reviewed Imaging Reviewed, no new data Endoscopy See note from today's procedure Impression & Recommendations 53yo female with obesity s/p RYGB now s/p TORe for bypass revision as management for weight regain. Admitted to observation overnight for nausea/vomiting control. Recommendations: ?- On POD #1, the patient should be given sips of water, up to 2oz per hour as tolerated - If tolerates liquids without issue, can be discharged from GI perspective (handout provided) Begin: Morning after procedure Duration: 1 day Diet instructions: Fluids are the number one priority 2 ounces of non-caloric, non-carbonated, non-caffeinated liquids every hour for the first 6 hours Then 4oz per hour for the next 8 hours . Record all fluid intake Use 1 ounce medicine cup and take one sip every 5 mins Sip slowly and stop as soon as you feel full Do not use straw Begin: 48 hours after procedure Duration: 45 days Fluid Goal: 60 ounces per day (protein drinks do NOT count towards fluid goal) Protein Goal: 60 grams per day Calorie Goal: 900 - 1000 calories per day - Can stop IVFs if tolerating sips - Cont pantoprazole 40mg IV BID, patient should be discharged on omeprazole 40mg BID before meals (capsules, to be opened and contents sprinkled on pudding, yogurt, or applesauce) x 8 weeks. - Start liquid Carafate solution 1gm TID x 8 weeks after meals POD#2. If insurance does not cover solution form, can prescribe tablet and ask patient to crush tablet and mix in 6-8 oz of water. - Ensure prescribed anti-emetic medications at discharge (zofran 8 mg disintegrating table q 8 hr prn). - Liquid tylenol prn for pain control - Liquid or IV tylenol prn for pain control - Can consider cepacol lozenges or phenol spray for sore throat - Continue IV antibiotics while in the hospital - Activity as tolerated - All medications to be converted to liquid and crushable form for 6 weeks at discharge. - We will arrange for outpatient follow-up with nutrition in 2 weeks and GI/Bariatric Endoscopy clinic with Dr. Thomas 4 weeks Discharge instructions (when patient is going home/please send below to patient's pharmacy): -Please double check patient will be able to apple picker medications from patient's pharmacy same day of discharge / i.e. verify pharmacy hours (since patient cannot be home without antinausea meds/other meds) -The patient should be discharged on CAPSULE form omeprazole 40mg BID before meals (capsules, to be opened and contents sprinkled on pudding, yogurt, or applesauce) x 8 weeks. Please ensure CAPSULE form is prescribed. -Start liquid Carafate solution 1gm TID for 8 weeks after meals POD#2. If insurance does not cover solution form, can prescribe tablet and ask patient to crush tablet and mix in 6-8 oz of water - Ensure prescribed anti-emetic medications at discharge (zofran 8 mg disintegrating table q 8 hr PRN). -Consider giving compazine PRN for nausea as well. -All medications to be converted to liquid and crushable form for 6 weeks at discharge. -Send home with liquid tylenol PRN -Liquid protein diet for 45 days. Outpatient diet handout was printed and provided to patient. Further instructions for diet were given to patient. -Change IV cipro/flagyl to PO (instructed to crush and take with liquids) x 3 days (beginning POD#1) -Will arrange for outpatient follow-up with Bariatric Air Quality Specialist in nutrition clinic in 2 weeks and GI/Bariatric Endoscopy clinic with Dr. Thomas in 4 weeks Please feel free to call Dr. Thomas directly with questions or concerns. Also we can be reached during regular working hours to the GI consult pager [phone]. Overnight and weekends, please page the GI fellow on-call as per the on-call directory (fellow to discuss directly with our team/Dr. Thomas). Vianey Serrano MD Gastroenterology and Bariatric Endoscopy Fellow Discussed with Ruddy Thomas MD MSc Advanced Interventional Endoscopy GI/Bariatric Endoscopy [facility] - [facility] 07/28/2024 2:36 PM [facility] 07-28-2024 Consult note Formatting of th is note is different from the original. Images from the original note were not included. GI/Bariatric Endoscopy consult progress note Gastroenterology, Hepatology, and Nutrition Department ?[facility] Gastroenterology and Hepatology Inpatient Progress Note 24 Hour Events/Subjective 53yo female with obesity s/p RYGB now s/p TORe for bypass revision as management for weight regain. Admitted to observation overnight for nausea/vomiting control. Doing well post-procedure. Medications Current Outpatient Medications Medication Sig Dispense Refill CARAFATE [address] 1 tablet in cup with 15ml-30ml warm water. Allow to dissolve into a slurry and drink. Repeat FOUR times daily as directed. Start on 07/30/24. 120 tablet 2 acetaminophen (TYLENOL) 500 mg/15 mL liqd Take 15 mL by mouth every 6 hours as needed for pain. Do not exceed 5 doses in 24 hours. 1000 mL 0 ondansetron orally disintegrating (ZOFRAN ODT) 8 mg disintegrating tablet Take 1 tablet by mouth every 8 hours as needed for nausea/vomiting. 20 tablet 0 scopolamine (TRANSDERM-SCOP) patch 1.5 mg/72 hr (delivers 1 mg over 3 days) Apply 1 Patch as directed every 72 hours. 4 Patch 0 omeprazole (PRILOSEC) 40 mg capsule Take 1 capsule by mouth two times a day. Open capsule sprinkle over applesauce and take 30 minutes before breakfast and 30 minutes before dinner 180 capsule 0 ergocalciferol, vitamin D2, (DRISDOL) 50,000 unit capsule Take 1 capsule by mouth once each week. levothyroxine (SYNTHROID) 100 mcg tablet Take 1 tablet by mouth once daily. Multivitamin capsule Take 1 capsule by mouth once daily. Current Facility-Administered Medications Medication Dose Route Frequency Provider Last Rate Last Admin lidocaine (PF) 10 mg/mL (1 %) 1-2 mg injection (XYLOCAINE) 0.1-0.2 mL INTRADERMAL PRN Vianey Serrano MD lactated ringers iv infusion 30 mL/hr INTRAVENOUS CONTINUOUS Vianey Serrano MD dexAMETHasone sodium phosphate (PF) 8 mg injection (DECADRON) 8 mg INTRAVENOUS ONCE Vianey Serrano MD scopolamine (delivers 1 mg over 3 days) 1 Patch (TRANSDERM-SCOP) 1 Patch TRANSDERMAL q 72 HR Vianey Serrano MD And [START ON 2024] scopolamine - REMOVE PATCH OTHER q 72 HR Vianey Serrano MD And scopolamine - VERIFY patch OTHER q 8 H Vianey Serrano MD Facility-Administered Medications Ordered in Other Encounters Medication Dose Route Frequency Provider Last Rate Last Admin propofol injection (DIPRIVAN) INTRAVENOUS PRN Lauren Pratt APRN.CHIEF CONCIERGE 50 mg at 07/28/24 1357 propofol infusion (DIPRIVAN) INTRAVENOUS X (ONE-STEP ONLY) CONTINUOUS PRN Lauren Pratt APRN.CHIEF CONCIERGE Stopped at 07/28/24 1423 rocuronium injection INTRAVENOUS PRN Lauren Pratt 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.CHIEF CONCIERGE 50 mg at 07/28/24 1346 lactated ringers iv infusion INTRAVENOUS X (ONE-STEP ONLY) CONTINUOUS PRN Lauren Pratt APRN.CHIEF CONCIERGE Stopped at 07/28/24 1423 dexAMETHasone sodium phosphate injection (DECADRON) INTRAVENOUS PRN Lauren 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.CHIEF CONCIERGE 8 mg at 07/28/24 1353 lidocaine (PF) 10 mg/mL (1 %) injection (XYLOCAINE) INTRAVENOUS PRN LamLauren childers APRN.CHIEF CONCIERGE 100 mg at 07/28/24 1344 glucagon injection INTRAVENOUS PRN Lauren Pratt APRN.CHIEF CONCIERGE 0.5 mg at 07/28/24 1410 sugammadex injection (BRIDION) INTRAVENOUS PRN NaifLauren childers APRN.CHIEF CONCIERGE 200 mg at 07/28/24 1426 Objective Vitals: BP 116/69 Pulse 61 Temp 36.2 C (97.2 F) (Temporal) Resp 16 Ht 158.8 cm (5' 2.5) Wt 84.4 kg (186 lb 1.1 oz) LMP 09/03/2013 SpO2 100% BMI 33.49 kg/m Intake/Output Summary (Last 24 hours) at 07/28/2024 1436 Last data filed at 07/28/2024 1423 Gross per 24 hour Intake 1000 ml Output -- Net 1000 ml Physical Exam Gen: Pleasant woman lying in bed in NAD HEENT: Anicteric, dry MM, O/P clear PULM: CTAB, no w/r/r CVS: RRR, S1,S2, No m/r/g Abd: Soft, nondistended, nontender, normoactive BS Ext: No edema Neuro: AAOx3, non-focal Labs Reviewed Imaging Reviewed, no new data Endoscopy See note from today's procedure Impression & Recommendations 53yo female with obesity s/p RYGB now s/p TORe for bypass revision as management for weight regain. Admitted to observation overnight for nausea/vomiting control. Recommendations: ?- On POD #1, the patient should be given sips of water, up to 2oz per hour as tolerated - If tolerates liquids without issue, can be discharged from GI perspective (handout provided) Begin: Morning after procedure Duration: 1 day Diet instructions: Fluids are the number one priority 2 ounces of non-caloric, non-carbonated, non-caffeinated liquids every hour for the first 6 hours Then 4oz per hour for the next 8 hours . Record all fluid intake Use 1 ounce medicine cup and take one sip every 5 mins Sip slowly and stop as soon as you feel full Do not use straw Begin: 48 hours after procedure Duration: 45 days Fluid Goal: 60 ounces per day (protein drinks do NOT count towards fluid goal) Protein Goal: 60 grams per day Calorie Goal: 900 - 1000 calories per day - Can stop IVFs if tolerating sips - Cont pantoprazole 40mg IV BID, patient should be discharged on omeprazole 40mg BID before meals (capsules, to be opened and contents sprinkled on pudding, yogurt, or applesauce) x 8 weeks. - Start liquid Carafate solution 1gm TID x 8 weeks after meals POD#2. If insurance does not cover solution form, can prescribe tablet and ask patient to crush tablet and mix in 6-8 oz of water. - Ensure prescribed anti-emetic medications at discharge (zofran 8 mg disintegrating table q 8 hr prn). - Liquid tylenol prn for pain control - Liquid or IV tylenol prn for pain control - Can consider cepacol lozenges or phenol spray for sore throat - Continue IV antibiotics while in the hospital - Activity as tolerated - All medications to be converted to liquid and crushable form for 6 weeks at discharge. - We will arrange for outpatient follow-up with nutrition in 2 weeks and GI/Bariatric Endoscopy clinic with Dr. Thomas 4 weeks Discharge instructions (when patient is going home/please send below to patient's pharmacy): -Please double check patient will be able to apple picker medications from patient's pharmacy same day of discharge / i.e. verify pharmacy hours (since patient cannot be home without antinausea meds/other meds) -The patient should be discharged on CAPSULE form omeprazole 40mg BID before meals (capsules, to be opened and contents sprinkled on pudding, yogurt, or applesauce) x 8 weeks. Please ensure CAPSULE form is prescribed. -Start liquid Carafate solution 1gm TID for 8 weeks after meals POD#2. If insurance does not cover solution form, can prescribe tablet and ask patient to crush tablet and mix in 6-8 oz of water - Ensure prescribed anti-emetic medications at discharge (zofran 8 mg disintegrating table q 8 hr PRN). -Consider giving compazine PRN for nausea as well. -All medications to be converted to liquid and crushable form for 6 weeks at discharge. -Send home with liquid tylenol PRN -Liquid protein diet for 45 days. Outpatient diet handout was printed and provided to patient. Further instructions for diet were given to patient. -Change IV cipro/flagyl to PO (instructed to crush and take with liquids) x 3 days (beginning POD#1) -Will arrange for outpatient follow-up with Bariatric Air Quality Specialist in nutrition clinic in 2 weeks and GI/Bariatric Endoscopy clinic with Dr. Thomas in 4 weeks Please feel free to call Dr. Thomas directly with questions or concerns. Also we can be reached during regular working hours to the GI consult pager [phone]. Overnight and weekends, please page the GI fellow on-call as per the on-call directory (fellow to discuss directly with our team/Dr. Thomas). Vianey Serrano MD Gastroenterology and Bariatric Endoscopy Fellow Discussed with Ruddy Thomas MD MSc Advanced Interventional Endoscopy GI/Bariatric Endoscopy [facility] - [facility] 07/28/2024 2:36 PM documented in this encounter [facility] 07-28-2024 History and physical note PROCEDURAL SEDATION HISTORY AND PHYSICAL EXAM SERVICE DATE: 07/28/2024 SERVICE TIME: 1241 Subjective HPI: This is a 53 year old female who presents with Post-RYGB weight regain PAST ANESTHESIA HISTORY:No history of adverse event PAST MEDICAL HISTORY Diagnosis Date Broken ankle Right ankle no surgery Hypothyroidism Melanoma (HCC) Pneumonia 11/25/2018 PAST SURGICAL HISTORY Procedure Laterality Date DILATION & CURETTAGE DX&/THER NONOBSTETRIC 08/05/2013 Polypectomy EGD BARIATRIC 10/2023 EGD W/O BRSH SPEC VARICIES INJ 11/05/2023 ENDOVENOUS LASER, 1ST VEIN 07/22, 12/22, 03/24 [address]SS[address] Linton GASTRIC BYPASS HX 2005 HYSTERECTOMY HX KNEE SURGERY HX Right 11/10/2019 ACL/MCL/Miniscus LIG/TRNSXJ FLP TUBE ABDL/VAG APPR UNI/BI 2010 MELANOMA OF SKIN BIOPSY SYN RPT MELANOMA OF SKIN EXCISION SYN RPT REPAIR UMBILICAL HERNIA 2002, 2003 mesh SKIN BIOPSY HX Prior to Admission medications as of 07/28/24 1112 Medication Sig Last Dose Taking CARAFATE [address] 1 tablet in cup with 15ml-30ml warm water. Allow to dissolve into a slurry and drink. Repeat FOUR times daily as directed. Start on 07/30/24. acetaminophen (TYLENOL) 500 mg/15 mL liqd Take 15 mL by mouth every 6 hours as needed for pain. Do not exceed 5 doses in 24 hours. ondansetron orally disintegrating (ZOFRAN ODT) 8 mg disintegrating tablet Take 1 tablet by mouth every 8 hours as needed for nausea/vomiting. scopolamine (TRANSDERM-SCOP) patch 1.5 mg/72 hr (delivers 1 mg over 3 days) Apply 1 Patch as directed every 72 hours. omeprazole (PRILOSEC) 40 mg capsule Take 1 capsule by mouth two times a day. Open capsule sprinkle over applesauce and take 30 minutes before breakfast and 30 minutes before dinner ergocalciferol, vitamin D2, (DRISDOL) 50,000 unit capsule Take 1 capsule by mouth once each week. levothyroxine (SYNTHROID) 100 mcg tablet Take 1 tablet by mouth once daily. Multivitamin capsule Take 1 capsule by mouth once daily. ALLERGIES No Known Allergies CARDIOVASCULAR:No chest pain, leg swelling and palpitations PULMONARY:No cough,wheezing and shortness of breath Objective PHYSICAL EXAM:The remainder of the physical exam is noncontributory AIRWAY: Airway Visualization of Uvula: Yes Mouth opening greater than 2 fingerbreadths: Yes Neck Full Range of Motion: Yes LUNGS: Lungs clear to auscultation CARDIAC: Regular rhythm,Regular rate Assessment/Plan ASA Class: II Patient OK for Sedation: Yes Sedation Goal: Anesthesia Provisional Diagnosis/Treatment Plan: Post-RYGB weight regain/ EGD EGBR TORe Sedation Goal: Anesthesia SIGNATURE: Vianey Serrano MD PATIENT NAME: Melissa Nichols DATE: July 28, 2024 TIME: 12:41 PM Created 2023 [facility] Work Phone: 07-28-2024 History and physical note PROCEDURAL SEDATION HISTORY AND PHYSICAL EXAM SERVICE DATE: 07/28/2024 SERVICE TIME: 1241 Subjective HPI: This is a 53 year old female who presents with Post-RYGB weight regain PAST ANESTHESIA HISTORY:No history of adverse event PAST MEDICAL HISTORY Diagnosis Date Broken ankle Right ankle no surgery Hypothyroidism Melanoma (HCC) Pneumonia 11/25/2018 PAST SURGICAL HISTORY Procedure Laterality Date DILATION & CURETTAGE DX&/THER NONOBSTETRIC 08/05/2013 Polypectomy EGD BARIATRIC 10/2023 EGD W/O BRSH SPEC VARICIES INJ 11/05/2023 ENDOVENOUS LASER, 1ST VEIN 07/22, 12/22, 03/24 [address]SS[address] Linton GASTRIC BYPASS HX 2005 HYSTERECTOMY HX KNEE SURGERY HX Right 11/10/2019 ACL/MCL/Miniscus LIG/TRNSXJ FLP TUBE ABDL/VAG APPR UNI/BI 2009 MELANOMA OF SKIN BIOPSY SYN RPT MELANOMA OF SKIN EXCISION SYN RPT REPAIR UMBILICAL HERNIA 2002, 2003 mesh SKIN BIOPSY HX Prior to Admission medications as of 07/28/24 1112 Medication Sig Last Dose Taking CARAFATE [address] 1 tablet in cup with 15ml-30ml warm water. Allow to dissolve into a slurry and drink. Repeat FOUR times daily as directed. Start on 07/30/24. acetaminophen (TYLENOL) 500 mg/15 mL liqd Take 15 mL by mouth every 6 hours as needed for pain. Do not exceed 5 doses in 24 hours. ondansetron orally disintegrating (ZOFRAN ODT) 8 mg disintegrating tablet Take 1 tablet by mouth every 8 hours as needed for nausea/vomiting. scopolamine (TRANSDERM-SCOP) patch 1.5 mg/72 hr (delivers 1 mg over 3 days) Apply 1 Patch as directed every 72 hours. omeprazole (PRILOSEC) 40 mg capsule Take 1 capsule by mouth two times a day. Open capsule sprinkle over applesauce and take 30 minutes before breakfast and 30 minutes before dinner ergocalciferol, vitamin D2, (DRISDOL) 50,000 unit capsule Take 1 capsule by mouth once each week. levothyroxine (SYNTHROID) 100 mcg tablet Take 1 tablet by mouth once daily. Multivitamin capsule Take 1 capsule by mouth once daily. ALLERGIES No Known Allergies CARDIOVASCULAR:No chest pain, leg swelling and palpitations PULMONARY:No cough,wheezing and shortness of breath Objective PHYSICAL EXAM:The remainder of the physical exam is noncontributory AIRWAY: Airway Visualization of Uvula: Yes Mouth opening greater than 2 fingerbreadths: Yes Neck Full Range of Motion: Yes LUNGS: Lungs clear to auscultation CARDIAC: Regular rhythm,Regular rate Assessment/Plan ASA Class: II Patient OK for Sedation: Yes Sedation Goal: Anesthesia Provisional Diagnosis/Treatment Plan: Post-RYGB weight regain/ EGD EGBR TORe Sedation Goal: Anesthesia SIGNATURE: Vianey Serrano MD PATIENT NAME: Melissa Nichols DATE: July 28, 2024 TIME: 12:41 PM 2023 documented in this encounter [facility] 07-20-2024 Telephone encounter Note MELISSA NICHOLS ([place]: BRVYFWAU) Rx #: [id number] Status Sent to Plan today Next Steps The plan will fax you a determination, typically within 1 to 5 business days. Drug Sucralfate 1GM/10ML suspension Form [facility]-Rx Care Specialty and Non-Specialty Medication Prior Authorization Form [facility] 07-20-2024 Miscellaneous Notes MELISSA NICHOLS ([place]: BRVYFWAU) Rx #: [id number] Status Sent to Plan today Next Steps The plan will fax you a determination, typically within 1 to 5 business days. Drug Sucralfate 1GM/10ML suspension Form US-Rx Care Specialty and Non-Specialty Medication Prior Authorization Form documented in this encounter [facility] 07-16-[address] - 07/16/2024 2:30 PM EST Nutrition Intervention 07/14/2024: Modify type and amount of food at meals and snacks 1. Begin liquid diet with clear liquids and protein shakes 2 days before procedure. -Should have last protein shake around 6pm night before procedure and nothing to eat or drink after midnight. -Day of procedure nothing to eat or drink 2. Review Endoscopic weight loss procedure guidelines (will be given guidebook day of procedure) 3. Advance from clear liquids to Stage 3 protein shakes 48 hours following procedure for a 45 day duration -Protein shakes should have 150-200 calories, minimum of 15 grams of protein, maximum of 5 gram of sugar (Slimfast High Protein (lactose-free), Atkins Advantage, Boost Glucose Control) 4. Aim for 64 oz fluid/day (zero calorie, no carbonation, no caffeine, no alcohol) 5. Aim for 72 g protein/day 6. Take daily chewable multivitamins and daily chewable calcium citrate OR trial with Bariatric Fusion Complete Chewables (2 in the morning, 2 at night) 7. Eat/drink protein shakes at regular intervals (every ~3 hours) 8. Separate eating and drinking by 30 minutes 9. Recommend exercising, overall goal of 150-200 minutes per week (including both cardio and weight resistance) - Do not advance to Stage 4 until at least 45 days post-op and protein goals are consistently being met * Stage 4: focus on meeting protein goals through soft, moist protein foods. Introduce appropriate vegetables, fruits, starches as able - Do not advance to Stage 5 until at least 60 days post-op and protein goals are consistently being met documented in this encounter [facility] 07-15-2024 Note HNO ID: [id number] Author: ADALI OLIVEROS PSYD Service: ? Author Type: Psychologist Type: Progress Notes Filed: 07/15/2024 09:32 Note Text: GI/Bariatric Endoscopy Clinic Visit Gastroenterology, Hepatology, and Nutrition Department ?[facility] July 15, 2024 Melissa Nichols CPT Code: [id number] Virtual Psychotherapy 16-37 minutes Time: 8:48 am to 9:23 am Session #: 4 Anthropometrics Weight History Weight Change Height 5 ft 1 in Current Weight BMI 183 lbs 34.58 Initial Program Weight BMI 231 lbs 43.6 -48 lbs Procedure Weight BMI 216 lbs 40.8 15.7 %TWL Last Visit Weight 183 lbs +/-0 lbs Non-Scale Progress (1 is low and 10 is high) 1 2 3 4 5 6 7 8 9 10 Energy [] [] [] [] [] [] [x] [] [] [] Sleep [] [] [] [] [x] [] [] [] [] [] Looser Fitting Clothing (1 is tight and 10 is baggy) [] [] [] [] [x] [] [] [] [] [] Daily Movement [] [] [] [] [] [] [x] [] [] [] Physical Fitness [] [] [] [] [x] [] [] [] [] [] Appetite/Hunger (1 is low hunger/ 10 is high hunger) [] [] [] [] [] [] [x] [] [] [] Cravings (1 is no cravings/ 10 is frequent cravings) [] [] [] [] [] [x] [x] [] [] [] Virtual Visit I have communicated my name and active licensure. The patient's identity and physical location were verified at the time of this visit. Either the patient or their legal medical detail representative has been informed of the risks and benefits of -- and alternatives to -- treatment through a remote evaluation and consents to proceed with the evaluation remotely. Patient is in the state [facility] during our call PsyPACT: I am authorized to practice either (1) interjurisdictional telepsychology under Authority to Practice Interjurisdictional Telepsychology (APIT) or (2) temporary in-person, [id number] practice for up to 30 days a calendar year in each [facility] state under Temporary Authorization to Practice (TAP). Collateral Parties Present: none. This is a 53 year old patient pursuing medical/surgical weight management in counseling for support in lifestyle modification and improved coping skills. 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 Reviewed beliefs that do not support weight loss for its promotion of health and cognitive challenging for more balanced thoughts. Encouraged pt to use feedback from non-scale progress to inform lifestyle change and support weight management intermediate. Discussed the interaction of the brain and gut generally and specific to appetite. Reviewed the 2 origin points for hunger and the differences in the strategies to support each type. Encouraged pt to identify some of the cues from the body, mind and emotions to help discern the origin point of hunger. Patient was seen virtually The patient was well-groomed. She was cooperative with the interview process. The patient had excellent eye contact. Appearance: Well dressed, well groomed Behavior: Behaves appropriately during the encounter Social Relatedness: Appropriate for age and developmental level Speech: The patient demonstrates appropriate tone, prosody, siria, phonetics, and syntax Mood:Engaging Affect: Full and appropriate to topic Thought Content: The patient endorses obsessive thinking. Thought Process:The thought process is appropriate for situation Hallucinations: No perceptual disturbances Delusions: No delusional thinking is evident Suicidal Ideas/Plans: The patient denies suicidal ideation, intent or plan Homicidal Ideas/Plans: Patient denies any homicidal ideation, plan or intent at this time. Anxiety: The patient demonstrates obsessive thinking and The patient is demonstrating anticipatory anxieties Orientation: Person, Place, Time and Situation Memory: Recent intact, Remote intact, and Immediate intact Concentration: Good Attention: The patient demonstrated full attention and focus throughout the interview Fund of Knowledge: Appropriate for age and developmental level Judgment: Demonstrates age appropriate judgment Insight: demonstrates good insight The patient's motivation for treatment was judged to be good. Assessment: Reviewed results from HARMONY-7, PHQ-9 indicating No elevation and informed interventions in this visit. 07/15/24 - PHQ-2 Score: 0 PHQ-9 Score: 1 Patient Data Generalized Anxiety Disorder Scale (HARMONY-7) 01/23/2024 04/17/2024 07/08/2024 HARMONY - 7 SCORES Score 0 0 0 (0-4) minimal anxiety, (5-9) mild anxiety, (10-14) m (more content not included)... [facility] 07-15-2024 History of Present illness Narrative Images from the original note were not included. GI/Bariatric Endoscopy Clinic Visit Gastroenterology, Hepatology, and Nutrition Department ?[facility] July 15, 2024 Melissa Nichols CPT Code: [id number] Virtual Psychotherapy 16-37 minutes Time: 8:48 am to 9:23 am Session #: 4 Anthropometrics Weight History Weight Change Height 5 ft 1 in Current Weight BMI 183 lbs 34.58 Initial Program Weight BMI 231 lbs 43.6 -48 lbs Procedure Weight BMI 216 lbs 40.8 15.7 %TWL Last Visit Weight 183 lbs +/-0 lbs Non-Scale Progress (1 is low and 10 is high) 1 2 3 4 5 6 7 8 9 10 Energy [] [] [] [] [] [] [x] [] [] [] Sleep [] [] [] [] [x] [] [] [] [] [] Looser Fitting Clothing (1 is tight and 10 is baggy) [] [] [] [] [x] [] [] [] [] [] Daily Movement [] [] [] [] [] [] [x] [] [] [] Physical Fitness [] [] [] [] [x] [] [] [] [] [] Appetite/Hunger (1 is low hunger/ 10 is high hunger) [] [] [] [] [] [] [x] [] [] [] Cravings (1 is no cravings/ 10 is frequent cravings) [] [] [] [] [] [x] [x] [] [] [] Virtual Visit I have communicated my name and active licensure. The patient's identity and physical location were verified at the time of this visit. Either the patient or their legal medical detail representative has been informed of the risks and benefits of -- and alternatives to -- treatment through a remote evaluation and consents to proceed with the evaluation remotely. Patient is in the state [facility] during our call PsyPACT: I am authorized to practice either (1) interjurisdictional telepsychology under Authority to Practice Interjurisdictional Telepsychology (APIT) or (2) temporary in-person, [id number] practice for up to 30 days a calendar year in each [facility] state under Temporary Authorization to Practice (TAP). Collateral Parties Present: none. This is a 53 year old patient pursuing medical/surgical weight management in counseling for support in lifestyle modification and improved coping skills. 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 Reviewed beliefs that do not support weight loss for its promotion of health and cognitive challenging for more balanced thoughts. 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 Discussed the interaction of the brain and gut generally and specific to appetite. Reviewed the 2 origin points for hunger and the differences in the strategies to support each type. Encouraged pt to identify some of the cues from the body, mind and emotions to help discern the origin point of hunger. Patient was seen virtually The patient was well-groomed. She was cooperative with the interview process. The patient had excellent eye contact. Appearance: Well dressed, well groomed Behavior: Behaves appropriately during the encounter Social Relatedness: Appropriate for age and developmental level Speech: The patient demonstrates appropriate tone, prosody, siria, phonetics, and syntax Mood:Engaging Affect: Full and appropriate to topic Thought Content: The patient endorses obsessive thinking. Thought Process:The thought process is appropriate for situation Hallucinations: No perceptual disturbances Delusions: No delusional thinking is evident Suicidal Ideas/Plans: The patient denies suicidal ideation, intent or plan Homicidal Ideas/Plans: Patient denies any homicidal ideation, plan or intent at this time. Anxiety: The patient demonstrates obsessive thinking and The patient is demonstrating anticipatory anxieties Orientation: Person, Place, Time and Situation Memory: Recent intact, Remote intact, and Immediate intact Concentration: Good Attention: The patient demonstrated full attention and focus throughout the interview Fund of Knowledge: Appropriate for age and developmental level Judgment: Demonstrates age appropriate judgment Insight: demonstrates good insight The patient's motivation for treatment was judged to be good. Assessment: Reviewed results from HARMONY-7, PHQ-9 indicating No elevation and informed interventions in this visit. 07/15/24 - PHQ-2 Score: 0 PHQ-9 Score: 1 Patient Data Generalized Anxiety Disorder Scale (HARMONY-7) 01/23/2024 04/17/2024 07/08/2024 HARMONY - 7 SCORES Score 0 0 0 (0-4) minimal anxiety, (5-9) mild anxiety, (10-14) moderate anxiety, (15-21) severe anxiety Patient Health Questionnaire (PHQ-9) 01/23/2024 04/17/2024 07/08/2024 PHQ-9 Score 0 1 1 (0-4) minimal depression, (5-9) mild depression, (10-14) moderate depression, (15-19) moderately severe depression, (20-27) severe depression PROMIS Global Health 01/15/2024 04/17/2024 07/08/2024 PROMIS Global Health - (T-Scores - the mean of general population = 50. Five points is a clinically meaningful difference.) Physical T-Score 57.7 57.7 57.7 57.7 57.7 57.7 57.7 Mental T-Score 53.3 53.3 53.3 53.3 53.3 53.3 53.3 Current Outpatient Medications Medication Sig acetaminophen (TYLENOL) 500 mg/15 mL liqd Take 15 mL by mouth every 6 hours as needed for pain. Do not exceed 5 doses in 24 hours. sucralfate (CARAFATE) 100 mg/mL suspension Take 10 mL by mouth four times daily. start on 07/30/2024 ondansetron orally disintegrating (ZOFRAN ODT) 8 mg disintegrating tablet Take 1 tablet by mouth every 8 hours as needed for nausea/vomiting. scopolamine (TRANSDERM-SCOP) patch 1.5 mg/72 hr (delivers 1 mg over 3 days) Apply 1 Patch as directed every 72 hours. omeprazole (PRILOSEC) 40 mg capsule Take 1 capsule by mouth two times a day. Open capsule sprinkle over applesauce and take 30 minutes before breakfast and 30 minutes before dinner ergocalciferol, vitamin D2, (DRISDOL) 50,000 unit capsule Take 1 capsule by mouth once each week. levothyroxine (SYNTHROID) 100 mcg tablet Take 1 tablet by mouth once daily. Multivitamin capsule Take 1 capsule by mouth once daily. No current facility-administered medications for this visit. Medication Changes: No change in medications Diagnoses: Psychological Factors Affecting a Medical Condition class 1 obesity Procedure Status: Post-APC (10/30/23- 9 months) Pre-TORe (scheduled 07/28/24) Treatment Goals: Decrease symptoms of stress Increase identification of emotions and emotional regulation Learn healthy tools for emotional release Set healthy boundaries with others Set healthy boundaries with self Increase tools related to communication Increase interest in activities/interest in life Increase healthy lifestyle routines (sleep, exercise, schedule) Develop mindfulness/meditation practice(s) Increase healthy choices with food Increase physical activity Explore and engage in activities that align with interests Plan: 1) The patient identified a goal to pursue until the next visit: Continue current treatment Expand present- moment awareness Implement exercise regimen Practice relaxation techniques/ biofeedback 2) Number of weeks till next appointment: 8. Supervising Licensed Psychologist & Billing Provider: Adali Oliveros PSYD documented in this encounter [facility] 07-14-2024 Instructions Maranda Castro APRN.REPORT CLERK - 07/14/2024 9:22 AM EST - EGBR as scheduled - Start 2 days of liquid protein diet and fasting after midnight prior to scheduled procedure (No protein shakes after 6 pm prior to procedure) - Follow Nutritional guidelines post procedure - All other medications will need to changed to liquid or crushable for 6 weeks post procedure and to be discussed with prescribing provider - Post procedure medications all have been prescribed to pharmacy on file Increase PPI omeprazole 40 mg twice a day open capsule sprinkle over applesauce and take 30 minutes before breakfast and 30 minutes before dinner Carafate to be taken four times a day before meals and at bedtime tablet can be crushed and mixed with water (this will start on starting on 07/30/2024) Zofran 8 mg disintegrating as needed every 8 hours for nausea/vomting Tylenol 500 mg as needed every 6 hours for pain; not to exceed the 4000 mg daily dose from ALL sources Scopolamine patch last for 3 days for nausea/vomiting, can place on as directed the night prior to procedure You may also be prescribed the 2 below antibiotics Cipro 500 mg every 12 hours for 5 days to be crushed and taken with flavored liquids Flagyl 500 mg every 8 hours for 5 days to be crushed and taken with flavored liquids - Emphasized need for aerobic exercise, low-impact exercises and she will need to avoid resistance training for 4 weeks post procedure - Continue diet and lifestyle modifications - Continue to see and follow up with GI bariatric endoscopy dietitians, Trey Ceron RD or Angie Roth RD - Continue to see and follow up with GI bariatric endoscopy psychologist, Dr. Oliveros - [facility] as scheduled for follow up of medically supervised weight management program documented in this encounter [facility] 07-14-2024 Note HNO ID: [id number] Author: ANGIE ROTH RD Service: ? Author Type: Registered Dietitian Type: Progress Notes Filed: 07/16/2024 14:30 Note Text: Nutritional Therapy Re-Assessment Nutrition Diagnosis: Altered Gastrointestinal Tract Function, related to, S/P bariatric surgery, as evidenced by surgical and weight history RECOMMENDED MALNUTRITION DIAGNOSIS: NO MALNUTRITION IDENTIFIED NUTRITION CARE PLAN: Nutrition Intervention 07/14/2024: Modify type and amount of food at meals and snacks 1. Begin liquid diet with clear liquids and protein shakes 2 days before procedure. -Should have last protein shake around 6pm night before procedure and nothing to eat or drink after midnight. -Day of procedure nothing to eat or drink 2. Review Endoscopic weight loss procedure guidelines (will be given guidebook day of procedure) 3. Advance from clear liquids to Stage 3 protein shakes 48 hours following procedure for a 45 day duration -Protein shakes should have 150-200 calories, minimum of 15 grams of protein, maximum of 5 gram of sugar (Slimfast High Protein (lactose-free), Atkins Advantage, Boost Glucose Control) 4. Aim for 64 oz fluid/day (zero calorie, no carbonation, no caffeine, no alcohol) 5. Aim for 72 g protein/day 6. Take daily chewable multivitamins and daily chewable calcium citrate OR trial with Bariatric Fusion Complete Chewables (2 in the morning, 2 at night) 7. Eat/drink protein shakes at regular intervals (every ~3 hours) 8. Separate eating and drinking by 30 minutes 9. Recommend exercising, overall goal of 150-200 minutes per week (including both cardio and weight resistance) - Do not advance to Stage 4 until at least 45 days post-op and protein goals are consistently being met * Stage 4: focus on meeting protein goals through soft, moist protein foods. Introduce appropriate vegetables, fruits, starches as able - Do not advance to Stage 5 until at least 60 days post-op and protein goals are consistently being met Nutrition Monitoring AND Evaluation: BMI <35 Need for Follow up: as already scheduled (Call [phone] option 3) PROGRESS: Interval History: 9 months post APC (10/30/23) . Current weight loss tracking ahead of average. Patient is scheduled for EGBR procedure on 07/28/[address] Thomas. Diet recall indicates continued tolerance to Phase 5 diet. Reviewed pre and post procedure diet. Patient will be using [employer] for pre/post procedure liquid diet. Patient estimates to be consuming 2812-3593 kcal/day inadequate-adequate intake, ~70 gm protein/day adequate intake, and 90-100 oz/day adequate intake. Taking all recommended vitamin/minerals. Labs: no new labs to review. Exercise continue to be regular and meeting recommendations. Resting Metabolic Rate: 1380 Energy needs for weight loss 7802-9930 (15-20 kcal/kg CBW) Protein needs: 72 grams protein per day (1.2 g/kg IBW) Anthropometrics Weight History Weight Change Height 5 ft 1 in Current Weight BMI 186 lbs 35.14 Initial Program Weight BMI 231 lbs 43.6 -48 lbs Procedure Weight BMI 216 lbs (pre APC) 40.8 15.3 %TWL Last Visit Weight 178 lbs +5 lbs Non-Scale Progress (1 is low and 10 is high) 1 2 3 4 5 6 7 8 9 10 Energy [] [] [] [] [] [] [] [] [] [] Sleep [] [] [] [] [] [] [] [] [] [] Looser Fitting Clothing (1 is tight and 10 is baggy) [] [] [] [] [] [] [] [] [] [] Daily Movement [] [] [] [] [] [] [] [] [] [] Physical Fitness [] [] [] [] [] [] [] [] [] [] Appetite/Hunger (1 is low hunger/ 10 is high hunger) [] [] [] [] [] [] [] [] [] [] Cravings (1 is no cravings/ 10 is frequent cravings) [] [] [] [] [] [] [] [] [] [] Nutrition Intervention 04/22/2024: Modify type and amount of food at meals and snacks 1. Protein: Continue to strive for 74 g protein per day. Eat protein first at all meals. Lean meats, low fat/part skim dairy products, peanut butter, eggs, beans. 2. Eat 4 small meals per day or 3 meals and 1-2 small snacks for additional protein 3. Fluids: 64 oz per day, minimum. No carbonation, no caffeine, no calories, no alcohol. 4. Vitamin/minerals: Take daily multivitamin with 200 % daily value for all vitamin/minerals plus VIt D3 3,000 IU, Vit B12 500 mcg, Iron 45 mg and calcium citrate 4160-9999 mg/day . It is okay to use combination vitamin/minerals to reduce pill volume. Page 43 of Your Guide to Surgery 5. Exercise: strive for daily activity - combine strength training and cardio for best workouts. Goal is 30 minutes 5-6x per week. 6. Practice these: Eat in this order protein first, vegetable and fruit second and whole grain carbohydrates last. 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 [facility] 07-14-2024 History of Present illness Narrative Nutritional Therapy Re-Assessment Nutrition Diagnosis: Altered Gastrointestinal Tract Function, related to, S/P bariatric surgery, as evidenced by surgical and weight history RECOMMENDED MALNUTRITION DIAGNOSIS: NO MALNUTRITION IDENTIFIED NUTRITION CARE PLAN: Nutrition Intervention 07/14/2024: Modify type and amount of food at meals and snacks 1. Begin liquid diet with clear liquids and protein shakes 2 days before procedure. -Should have last protein shake around 6pm night before procedure and nothing to eat or drink after midnight. -Day of procedure nothing to eat or drink 2. Review Endoscopic weight loss procedure guidelines (will be given guidebook day of procedure) 3. Advance from clear liquids to Stage 3 protein shakes 48 hours following procedure for a 45 day duration -Protein shakes should have 150-200 calories, minimum of 15 grams of protein, maximum of 5 gram of sugar (Slimfast High Protein (lactose-free), Atkins Advantage, Boost Glucose Control) 4. Aim for 64 oz fluid/day (zero calorie, no carbonation, no caffeine, no alcohol) 5. Aim for 72 g protein/day 6. Take daily chewable multivitamins and daily chewable calcium citrate OR trial with Bariatric Fusion Complete Chewables (2 in the morning, 2 at night) 7. Eat/drink protein shakes at regular intervals (every ~3 hours) 8. Separate eating and drinking by 30 minutes 9. Recommend exercising, overall goal of 150-200 minutes per week (including both cardio and weight resistance) - Do not advance to Stage 4 until at least 45 days post-op and protein goals are consistently being met * Stage 4: focus on meeting protein goals through soft, moist protein foods. Introduce appropriate vegetables, fruits, starches as able - Do not advance to Stage 5 until at least 60 days post-op and protein goals are consistently being met Nutrition Monitoring & Evaluation: BMI <35 Need for Follow up: as already scheduled (Call [phone] option 3) PROGRESS: Interval History: 9 months post APC (10/30/23) . Current weight loss tracking ahead of average. Patient is scheduled for EGBR procedure on 07/28/[address] Thomas. Diet recall indicates continued tolerance to Phase 5 diet. Reviewed pre and post procedure diet. Patient will be using Premier Protein for pre/post procedure liquid diet. Patient estimates to be consuming 5166-7701 kcal/day inadequate-adequate intake, ~70 gm protein/day adequate intake, and 90-100 oz/day adequate intake. Taking all recommended vitamin/minerals. Labs: no new labs to review. Exercise continue to be regular and meeting recommendations. Resting Metabolic Rate: 1380 Energy needs for weight loss [id number] (15-20 kcal/kg CBW) Protein needs: 72 grams protein per day (1.2 g/kg IBW) Anthropometrics Weight History Weight Change Height 5 ft 1 in Current Weight BMI 186 lbs 35.14 Initial Program Weight BMI 231 lbs 43.6 -48 lbs Procedure Weight BMI 216 lbs (pre APC) 40.8 15.3 %TWL Last Visit Weight 178 lbs +5 lbs Non-Scale Progress (1 is low and 10 is high) 1 2 3 4 5 6 7 8 9 10 Energy [] [] [] [] [] [] [] [] [] [] Sleep [] [] [] [] [] [] [] [] [] [] Looser Fitting Clothing (1 is tight and 10 is baggy) [] [] [] [] [] [] [] [] [] [] Daily Movement [] [] [] [] [] [] [] [] [] [] Physical Fitness [] [] [] [] [] [] [] [] [] [] Appetite/Hunger (1 is low hunger/ 10 is high hunger) [] [] [] [] [] [] [] [] [] [] Cravings (1 is no cravings/ 10 is frequent cravings) [] [] [] [] [] [] [] [] [] [] Nutrition Intervention 04/22/2024: Modify type and amount of food at meals and snacks 1. Protein: Continue to strive for 74 g protein per day. Eat protein first at all meals. Lean meats, low fat/part skim dairy products, peanut butter, eggs, beans. 2. Eat 4 small meals per day or 3 meals and 1-2 small snacks for additional protein 3. Fluids: 64 oz per day, minimum. No carbonation, no caffeine, no calories, no alcohol. 4. Vitamin/minerals: Take daily multivitamin with 200 % daily value for all vitamin/minerals plus VIt D3 3,000 IU, Vit B12 500 mcg, Iron 45 mg and calcium citrate 3636-6724 mg/day . It is okay to use combination vitamin/minerals to reduce pill volume. Page 43 of Your Guide to Surgery 5. Exercise: strive for daily activity - combine strength training and cardio for best workouts. Goal is 30 minutes 5-6x per week. 6. Practice these: Eat in this order protein first, vegetable and fruit second and whole grain carbohydrates last. 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 Resting Metabolic Rate: 1361 Malnutrition Screening Significant unintentional weight loss? No Eating less than 75% of usual intake for more than 2 weeks? No Potential Signs of Inflammation: no identifiable sources Nutritional status: Education Materials Provided: None this visit READINESS TO LEARN Cognitive ability: Alert and oriented Motivation to learn: Interested Family support: Unable to assess - Family not present Instruction provided to: Patient Patient learns best by: Multiple Methods Factors affecting learning: None Physical limitations affecting learning: None Likelihood of Adherence: Moderate Referred/Supervised by: Dr. Thomas/Dr. Thomas MNT Billing Type: Re-assess/15 min 2 units SIGNATURE: Angie Roth RD PATIENT NAME: Melissa Nichols DATE: July 14, 2024 TIME: 9:10 AM PAGER: documented in this encounter [facility] 07-14-2024 History of Present illness Narrative Images from the original note were not included. Answers submitted by the patient for this visit: Review of Systems Gastroenterology (Submitted on 07/08/2024) Night Sweats: No Unitentional Weight Change: No Difficulty Breathing: No A feeling of fullness or have belly pain after eating: No Food getting stuck in your throat or chest after eating: No Regurgitation - that is, food or liquid coming back up into your throat or mouth without vomiting, or feel burning behind your breast bone: No Loss of appetite: No Black tarry stools: No The feeling like you need to empty your bowels right away - that is, feel as if you would have an accident: No Bowel incontinence - that is, have an accident because you cannot make it to the bathroom in time: No Pain in rectum or anus during bowel movements: No Problems with jaundice - that is, yellow discoloration of your skin or eyes, now or in the past: No Problems with having to flush the toilet more than two times due to oily stool, or see stool floating with oil: No Demetri Arnold DO [address] [facility] [place] [address] GI/Bariatric Endoscopy Clinic Visit Gastroenterology, Hepatology, and Nutrition Department ?[facility] ? 07/14/2024 Reason for Visit: 8 months and 2 weeks post APC revision for weight gain, obesity class II and weight management Patient is: Established patient Dear Demetri Arnold DO, ? I had the pleasure of seeing Melissa Nichols in the [facility] GI/Bariatric Endoscopy Clinic for 8 months and 2 weeks post APC revision for weight gain, obesity class II and weight management ?? The patient is a 53 year old female with past medical history as below presenting to us with 8 months and 2 weeks post APC revision for weight gain, obesity class II and weight management. Interval: - Pt presents to f/u now 8 months and 2 weeks post APC revision now scheduled for TORe procedure - She is down 20% TBWL (down 48 lbs) since initial program weight; +5 lbs since last visit - Active with rowing machine, 2 mile walk outdoors weather permitting, elliptical - Continues premier protein shakes trying different flavors - Denies use of cpap or bipap, Denied NSAID use or AC - Taking bariatric chewable MVI Anthropometrics Weight History Weight Change Height 5 ft 1.22 in Current Weight BMI 186 lbs (35 BMI) [facility] 183 lbs (34.5) home Initial Program Weight BMI 231 lbs (BMI 42.25) -48 lbs Procedure Weight BMI 216 lbs (BMI 39) APC 20 %TWL Last Visit Weight 178 lbs (BMI 33.39) +5 lbs Non-Scale Progress (1 is low and 10 is high) 1 2 3 4 5 6 7 8 9 10 Energy [] [] [] [] [] [] [] [] [] [] Sleep [] [] [] [] [] [] [] [] [] [] Looser Fitting Clothing (1 is tight and 10 is baggy) [] [] [] [] [] [] [] [] [] [] Daily Movement [] [] [] [] [] [] [] [] [] [] Physical Fitness [] [] [] [] [] [] [] [] [] [] Appetite/Hunger (1 is low hunger/ 10 is high hunger) [] [] [] [] [] [] [] [] [] [] Cravings (1 is no cravings/ 10 is frequent cravings) [] [] [] [] [] [] [] [] [] [] Prior History/ note from last VV 01/22/2024, Dr. Thomas: Melissa Nichols has a history of obesity since childhood. Comorbidities are: obesity class III, vitamin D deficiency, complex endometrial hyperplasia, anemia, degenerative joint disease, arthritis, positive JESSICA (nodules on joints f/u with Bobbin Winder Dr. Woo) and hypothyroid. Melissa Nichols underwent RYGB at [place] with Dr. Read on 04/2004. Barretts Esophagus prior to RYGB. no complications post RYGB. She denies having any reflux or heartburn. 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 The patient then experienced weight regain in 2018 and now weighs 231 lbs. The patient is here today complaining of the ability to eat larger portions and has satiety that does not last. Weight gain/regain and Obesity disease: The patient reports could eat several high caloric meals and beverages per day despite not feeling very hungry. Also not feeling satiety or full after eating several meals. Reports craving to eat throughout the day. This has resulted in weight gain/regain and worsening of obesity. Patient has tried to control the diet and be able to lose weight up to 20 lbs. Unfortunately, the patient would subsequently experience rebound weight regain following lifestyle modification interventions (diet + exercise). Patient has tried increasing physical activity or exercise, Weight Watcher, Fast metabolism diet (eat 4-6 small meals a day), Keto diet, high protein/low carb sugar diets, Intermittent fasting, Meal replacement plan, multiple dietitian healthy diets (low carbs, low fat, high protein diets), behavioral therapy and baritastic phone shen. Patient has tried medications (Topamax, Phen fen) and is following obesity medicine. She is not interested in revisional bariatric surgery. Patient exercises 4 times a week for 20-30 min every time: walking, chair yoga, treadmil, bike.Unfortunately, despite all the above interventions, patient's weight problem has started to severely affect patient's lifestyle and health. Specifically, patient has been experiencing ACL/MCL Repair from torn meniscus, also broke her ankle in 2021 which is exacerbated after walking 0.5-1 miles and this is now impairing the patient from been more physically active. Melissa Nichols was seen by primary care, orthopedics, bariatric specialities who recommended to lose weight and weight loss interventions. 24 hrs Diet recall: Diet consistent; premier protein shakes Wakes up to eat: No Current Exercise Activity: Rowing machine, 2 mile walk outdoors, elliptical. Weight History: Pre-RYGB weight: 280 lbs (BMI 51.2). Post-RYGB ava: 160 lbs (BMI 29.3). BP 124/80 (BP Site: Left Arm, BP Position: Sitting, BP Cuff Size: Regular Adult) Pulse 72 Temp 36 C (96.8 F) (Temporal) Ht 154.9 cm (5' 1) Wt 84.4 kg (186 lb) LMP 09/03/2013 SpO2 100% BMI 35.14 kg/m LMP 09/03/2013 Goal weight BMI < 27: 162.3 Goal weight BMI < 30: 180.3 Last 5 Encounter Wt Readings: Date: Wt: 05/11/2024 80.7 kg (178 lb) 04/22/2024 80.7 kg (178 lb) 04/21/2024 80.7 kg (178 lb) 01/22/2024 83.9 kg (185 lb) 12/16/2023 89.4 kg (197 lb 3.2 oz) Risk factors: Tobacco use: No EtOH intake: Rare social NSAIDs: No H. Pylori: No (EGD 2003 prior showed barretts repeat EGD normal) FH:No, brother recently diagnosed with rectal cancer and father with liver and pancreatic ca PH: No Relevant Medications: Phen fin in the past Topamax SE of nausea, not feeling well Wellbutrin in the past Vitamins/Minerals Supplements: - Vitamin D3 - Calcium 1200 mg - Multivitamin bariatric fusion not taking recommended amount Relevant Bariatric Procedures/Surgeries Bariatric Surgeon: Jacek at [facility] Bariatric Surgery: 2003 Abisai-en-Y Gastric Bypass (RYGB APC on 10/30/23; Scheduled for TORe procedure Past Medical History: PAST MEDICAL HISTORY Diagnosis Date Broken ankle Right ankle no surgery Hypothyroidism Melanoma (HCC) Pneumonia 11/25/2018 Past Surgical History: PAST SURGICAL HISTORY Procedure Laterality Date DILATION & CURETTAGE DX&/THER NONOBSTETRIC 08/05/2013 Polypectomy EGD BARIATRIC 10/2023 EGD W/O BRSH SPEC VARICIES INJ 11/05/2023 ENDOVENOUS LASER, 1ST VEIN 07/22, 12/22, 03/24 [address] Linton GASTRIC BYPASS HX 2005 HYSTERECTOMY HX KNEE SURGERY HX Right 11/10/2019 ACL/MCL/Miniscus LIG/TRNSXJ FLP TUBE ABDL/VAG APPR UNI/BI 2009 MELANOMA OF SKIN BIOPSY SYN RPT MELANOMA OF SKIN EXCISION SYN RPT REPAIR UMBILICAL HERNIA 2002, 2003 mesh SKIN BIOPSY HX Medications: Current Outpatient Medications Medication Sig Dispense Refill omeprazole (PRILOSEC) 40 mg capsule TAKE 1 CAPSULE BY MOUTH TWO TIMES A DAY. OPEN CAPSULE SPRINKLE OVER APPLESAUCE AND TAKE 30 MINUTES BEFORE BREAKFAST AND 30 MINUTES BEFORE DINNER 180 capsule 0 ergocalciferol, vitamin D2, (DRISDOL) 50,000 unit capsule Take 1 capsule by mouth once each week. levothyroxine (SYNTHROID) 100 mcg tablet Take 1 tablet by mouth once daily. Multivitamin capsule Take 1 capsule by mouth once daily. No current facility-administered medications for this visit. Allergies: ALLERGIES No Known Allergies Family History: No known colon cancer, polyps, IBD, celiac disease, pancreatic disease, or liver disease. FAMILY HISTORY Problem Relation Age of Onset Stroke Mother 42 DVT Mother other (CHF) Mother other (Bipolar Disorder) Mother dx after stroke Alcohol/Drug Father alcohol Diabetes Father Hypertension Father Cancer Father liver and pancreatic Hypertension Sister DVT Sister Rectal Cancer Brother COPD Brother Alcohol abuse Brother Hypertension Maternal Grandmother Hyperlipidemia Maternal Grandmother COPD Maternal Grandmother Diabetes Paternal Grandmother Kidney failure Paternal Grandmother Diabetes Paternal Grandfather No Known Problems Daughter No Known Problems Daughter ? Social History: Social History Tobacco Use Smoking status: Never Passive exposure: Never Smokeless tobacco: Never Vaping Use Vaping status: Never Used Substance Use Topics Alcohol use: No Drug use: No Tobacco: Tobacco Use: Never Alcohol: Alcohol Use: No Illicits: Drug Use: No Review of Systems: Review of Systems Constitutional: no fevers, chills, night sweats, or weight loss Cardiovascular: no chest pain Pulmonary: no shortness of breath Eyes: no visual changes or eye irritation Musculoskeletal: no myalgias or arthralgias Skin: no new or changing skin lesions, rashes or pruritis 12 point ROS otherwise negative. Physical Examination: BP 124/80 (BP Site: Left Arm, BP Position: Sitting, BP Cuff Size: Regular Adult) Pulse 72 Temp 36 C (96.8 F) (Temporal) Ht 154.9 cm (5' 1) Wt 84.4 kg (186 lb) LMP 09/03/2013 SpO2 100% BMI 35.14 kg/m Physical Exam Constitutional: Pleasant, NAD HEENT: Anicteric, /P clear Neck: No lymphadenopathy Cardiovascular: RRR, S1 S2, no m/r/g Respiratory: CTAB, no w/r/r Gastrointestinal: Abdomen is soft, non-tender, non-distended with normoactive BS. No rebound/guarding, No HSM. Musculoskeletal: No peripheral edema. Neurological Exam: AAOx3 Skin: No rash or jaundice Laboratory Data: Lab Results Component Value Date WBC 3.18 (L) 04/23/2024 WBC 3.50 (L) 10/16/2023 WBC 6.05 06/30/2019 HCT 40.0 04/23/2024 HCT 42.3 10/16/2023 HCT 37.9 06/30/2019 PLT 260 04/23/2024 PLT 275 10/16/2023 PLT 168 06/30/2019 Lab Results Component Value Date ALB 4.3 04/23/2024 TBILI 0.4 04/23/2024 Lab Results Component Value Date INR 1.1 10/16/2023 No components found for: VITDT, 25VITD, 25OHVITAMIND Lab Results Component Value Date B12 [id number] 04/23/2024 TSH Date Value Ref Range Status 10/13/2009 1.75 0.34 - 5.60 UIU/ML Final Comment: TSH: ULTRASENSITIVE METHOD- LOWER DETECTION LIMIT = 0.01 UIU/ML No components found for: GHBA1C, [id number] WBC (k/uL) Date Value 04/23/2024 3.18 (L) RBC (m/uL) Date Value 04/23/2024 4.11 Hemoglobin (g/dL) Date Value 04/23/2024 12.7 Hematocrit (%) Date Value 04/23/2024 40.0 MCV (fL) Date Value 04/23/2024 97.3 MCH (pg) Date Value 04/23/2024 30.9 MCHC (g/dL) Date Value 04/23/2024 31.8 RDW-CV (%) Date Value 04/23/2024 12.6 Platelet Count (k/uL) Date Value 04/23/2024 260 MPV (fL) Date Value 04/23/2024 10.0 Potassium (mmol/L) Date Value 04/23/2024 4.2 06/30/2019 3.3 Sodium (mmol/L) Date Value 04/23/2024 141 06/30/2019 137 Creatinine (mg/dL) Date Value 04/23/2024 0.75 06/30/2019 0.79 BUN (mg/dL) Date Value 04/23/2024 15 06/30/2019 8 Glucose (mg/dL) Date Value 04/23/2024 93 06/30/2019 138 INR (no units) Date Value 10/16/2023 1.1 TSH (UIU/ML) Date Value 10/13/2009 1.75 Glucose (mg/dL) Date Value 04/23/2024 93 BUN (mg/dL) Date Value 04/23/2024 15 Creatinine (mg/dL) Date Value 04/23/2024 0.75 Sodium (mmol/L) Date Value 04/23/2024 141 Potassium (mmol/L) Date Value 04/23/2024 4.2 Chloride (mmol/L) Date Value 04/23/2024 104 CO2 (mmol/L) Date Value 04/23/2024 29 Protein, Total (g/dL) Date Value 04/23/2024 7.2 Albumin (g/dL) Date Value 04/23/2024 4.3 Calcium, Total (mg/dL) Date Value 04/23/2024 9.5 Alkaline Phosphatase (U/L) Date Value 04/23/2024 99 Bilirubin, Total (mg/dL) Date Value 04/23/2024 0.4 AST (U/L) Date Value 04/23/2024 25 ALT (U/L) Date Value 04/23/2024 29 Glucose (mg/dL) Date Value 04/23/2024 93 06/30/2019 138 Creatinine (mg/dL) Date Value 04/23/2024 0.75 06/30/2019 0.79 Potassium (mmol/L) Date Value 04/23/2024 4.2 06/30/2019 3.3 AST (U/L) Date Value 04/23/2024 25 06/30/2019 21 ALT (U/L) Date Value 04/23/2024 29 06/30/2019 24 Hemoglobin A1C (%) Date Value 04/23/2024 5.1 Cholesterol, Total Date Value 04/23/2024 196 mg/dL 10/13/2009 173 MG/DL HDL Cholesterol Date Value 04/23/2024 55 mg/dL 10/13/2009 61 MG/DL ] LDL Cholesterol Date Value 04/23/2024 127 mg/dL 10/13/2009 92 MG/DL Triglyceride Date Value 04/23/2024 72 mg/dL 10/13/2009 101 MG/DL Albumin/Creat Ratio (mg/g) Date Value 10/16/2023 <27 ] Imagin10/16/2023 Fibroscan Impression The reading was adequate. FS =5.4 kPA. The CAP score is 249 and corresponds to steatosis grade of S1. Endoscopy: 10/30/2023 EGD/APC Findings: The examined esophagus was normal. The Z line was regular at 35 cm from incisors. The GE junction and hiatus were at 35 cm from incisors. Evidence of a Abisai-en-Y gastric bypass (RYGB) was found. The gastrojejunal anastomosis (GJA) was characterized by normal appearing mucosa. No ulcers, erosion, sutures or zeke. The GJA outlet was dilated 30 mm diameter and was traversed. The gastric pouch extended from 35 cm to 40 cm from the incisors. No gastro-gastric fistula found. The jejunum was normal at 60 cm (both Abisai/alimentary and blind limbs). No food or debris in the blind limb. The small bowel was not dilated and there was no evidence of excess fluid or distal obstruction. The jejuno-jejunal anastomosis was not evaluated. At the conclusion of the diagnostic endoscopy 120 mL of a dilute simethicone solution was instilled in the jejunum. APC REVISION OF GASTROJEJUNAL ANASTOMOSIS Attention was then given to the gastrojejunal anastomosis. The margin of the anastomosis was treated with Argon Plasma Coagulation for revision. There were no mucosal injuries to the proximal esophagus. The examined jejunum was normal. Impression: - Normal examined jejunum. - No specimens collected. Estimated Blood Loss: Estimated blood loss: none. Assessment and Recommendations: ??53 year old female with history as per HPI presenting to GI/Bariatric Endoscopy clinic for evaluation of 8 months and 2 weeks post APC revision for weight gain, obesity class I and weight management. Interval: - Pt presents to f/u now 8 months and 2 weeks post APC revision now scheduled for TORe procedure - She is down 20% TBWL (down 48 lbs) since initial program weight; +5 lbs since last visit - Active with rowing machine, 2 mile walk outdoors weather permitting, elliptical - Continues premier protein shakes trying different flavors - Denies use of cpap or bipap, Denied NSAID use or AC - Taking bariatric chewable MVI Weight History: Pre-RYGB weight: 280 lbs (BMI 51.2). Post-RYGB ava: 160 lbs (BMI 29.3). weight: 234 lbs (BMI 42.80) weight: 216 lbs (BMI 41.9) weight: 213 lbs (BMI 40.25) weight: 217 lbs (BMI 41) Pre APC weight:216 lbs (BMI 39) 1 month post APC weight: 200 lbs (BMI 36.5) Represents 7.4% TBWL 3 months after APC: 185 lbs (14.35% TBWL) 6 month post APC weight: 178 lbs (BMI 33) Represents 17.5% TBWL 8 month and 2 weeks post APC weight: 183 lbs (BMI 34.58) Represents 20 % TBWL Recommendations: - EGBR as scheduled - Start 2 days of liquid protein diet and fasting after midnight prior to scheduled procedure (No protein shakes after 6 pm prior to procedure) - Follow Nutritional guidelines post procedure - All other medications will need to changed to liquid or crushable for 6 weeks post procedure and to be discussed with prescribing provider - Post procedure medications all have been prescribed to pharmacy on file Increase PPI omeprazole 40 mg twice a day open capsule sprinkle over applesauce and take 30 minutes before breakfast and 30 minutes before dinner Carafate to be taken four times a day before meals and at bedtime tablet can be crushed and mixed with water (this will start on starting on 07/30/2024) Zofran 8 mg disintegrating as needed every 8 hours for nausea/vomting Tylenol 500 mg as needed every 6 hours for pain; not to exceed the 4000 mg daily dose from ALL sources Scopolamine patch last for 3 days for nausea/vomiting, can place on as directed the night prior to procedure You may also be prescribed the 2 below antibiotics Cipro 500 mg every 12 hours for 5 days to be crushed and taken with flavored liquids Flagyl 500 mg every 8 hours for 5 days to be crushed and taken with flavored liquids - Emphasized need for aerobic exercise, low-impact exercises and she will need to avoid resistance training for 4 weeks post procedure - Continue diet and lifestyle modifications - Continue to see and follow up with GI bariatric endoscopy dietitians, Trey Ceron RD or Angie Roth RD - Continue to see and follow up with GI bariatric endoscopy psychologist, Dr. Oliveros - [facility] as scheduled for follow up of medically supervised weight management program We reviewed coronavirus precautions including avoiding public places, maintaining 6 feet of distance from other persons when in public, no sick contacts, and fastidious handwashing. Thank you for allowing me to participate in the care of your patient. If you have any questions or concerns, please feel free to contact me. Maranda Castro APRN.CNP GI Bariatric Endoscopy 07/14/2024 9:00 AM documented in this encounter [facility] 07-14-2024 Note HNO ID: [id number] Author: MARANDA CASTRO APRN.CNP Service: ? Author Type: Nurse Practitioner Type: Progress Notes Filed: 07/14/2024 15:21 Note Text: Answers submitted by the patient for this visit: Review of Systems Gastroenterology (Submitted on 07/08/2024) Night Sweats: No Unitentional Weight Change: No Difficulty Breathing: No A feeling of fullness or have belly pain after eating: No Food getting stuck in your throat or chest after eating: No Regurgitation - that is, food or liquid coming back up into your throat or mouth without vomiting, or feel burning behind your breast bone: No Loss of appetite: No Black tarry stools: No The feeling like you need to empty your bowels right away - that is, feel as if you would have an accident: No Bowel incontinence - that is, have an accident because you cannot make it to the bathroom in time: No Pain in rectum or anus during bowel movements: No Problems with jaundice - that is, yellow discoloration of your skin or eyes, now or in the past: No Problems with having to flush the toilet more than two times due to oily stool, or see stool floating with oil: No Demetri Arnold DO [address] [facility] [place] [place] [address] GI/Bariatric Endoscopy Clinic Visit Gastroenterology, Hepatology, and Nutrition Department ?[facility] ? 07/14/2024 Reason for Visit: 8 months and 2 weeks post APC revision for weight gain, obesity class II and weight management Patient is: Established patient Dear Demetri Arnold DO, ? I had the pleasure of seeing Melissa Nichols in the [facility] GI/Bariatric Endoscopy Clinic for 8 months and 2 weeks post APC revision for weight gain, obesity class II and weight management ?? The patient is a 53 year old female with past medical history as below presenting to us with 8 months and 2 weeks post APC revision for weight gain, obesity class II and weight management. Interval: - Pt presents to f/u now 8 months and 2 weeks post APC revision now scheduled for TORe procedure - She is down 20% TBWL (down 48 lbs) since initial program weight; +5 lbs since last visit - Active with rowing machine, 2 mile walk outdoors weather permitting, elliptical - Continues premier protein shakes trying different flavors - Denies use of cpap or bipap, Denied NSAID use or AC - Taking bariatric chewable MVI Anthropometrics Weight History Weight Change Height 5 ft 1.22 in Current Weight BMI 186 lbs (35 BMI) [facility] 183 lbs (34.5) home Initial Program Weight BMI 231 lbs (BMI 42.25) -48 lbs Procedure Weight BMI 216 lbs (BMI 39) APC 20 %TWL Last Visit Weight 178 lbs (BMI 33.39) +5 lbs Non-Scale Progress (1 is low and 10 is high) 1 2 3 4 5 6 7 8 9 10 Energy [] [] [] [] [] [] [] [] [] [] Sleep [] [] [] [] [] [] [] [] [] [] Looser Fitting Clothing (1 is tight and 10 is baggy) [] [] [] [] [] [] [] [] [] [] Daily Movement [] [] [] [] [] [] [] [] [] [] Physical Fitness [] [] [] [] [] [] [] [] [] [] Appetite/Hunger (1 is low hunger/ 10 is high hunger) [] [] [] [] [] [] [] [] [] [] Cravings (1 is no cravings/ 10 is frequent cravings) [] [] [] [] [] [] [] [] [] [] Prior History/ note from last VV 01/22/2024, Dr. Thomas: Melissa Nichols has a history of obesity since childhood. Comorbidities are: obesity class III, vitamin D deficiency, complex endometrial hyperplasia, anemia, degenerative joint disease, arthritis, positive JESSICA (nodules on joints f/u with [facility] W[facility] Dr. Woo) and hypothyroid. Melissa Nichols underwent RYGB at [place] with Dr. Read on 04/2004. Barretts Esophagus prior to RYGB. no complications post RYGB. She denies having any reflux or heartburn. 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 The patient then experienced weight regain in 2019 and now weighs 231 lbs. The patient is here today complaining of the ability to eat larger portions and has satiety that does not last. Weight gain/regain and Obesity disease: The patient reports could eat several high caloric meals and beverages per day despite not feeling very hungry. Also not feeling satiety or full after eating several meals. Reports craving to eat throughout the day. This has resulted in weight gain/regain and worsening of obesity. Patient has tried to control the diet and be able to lose weight up to 20 lbs. Unfortunately, the patient would subsequently experience rebound weight regain following lifestyle modification interventions (diet + exercise). Patient has tried increasing physical activity or exercise, Weight Watcher, Fast metabolism diet (eat 4-6 small meals a day), Keto diet, high protein/low carb sugar diets, Intermittent fasting, Meal replacement plan, multiple dietitian healthy diets (low carbs, low fat, (more content not included)... [facility] 07-14-2024 Note HNO ID: [id number] Author: IDANIA MCDOWELL APRN.WALKER Service: ? Author Type: Nurse Practitioner Type: Progress Notes Filed: 07/14/2024 08:55 Note Text: Fibroscan Report Date performed: July 14, 2024 Performed by: Gayle Fountain RN Patient fasted 3 hours:Yes Indication: Hepatic Steatosis Technical difficulties: None. Result: The reading was adequate. Please refer to get images report for individual readings Number of readings: 10 IQR %: 5 E (kpa): 4.8 CAP: 165 Impression The liver stiffness is 4.8 kPa which corresponds to 97% chance of stage F0-F2 fibrosis. The CAP analysis showed grade S0 of liver steatosis. Stage of liver fibrosis based on above kPa: A 97% chance of stage 0-2 fibrosis A 3% chance of stage 3-4 fibrosis (advanced fibrosis) A <1% chance of stage 4 fibrosis (cirrhosis). A kPa >20 indicates a high likelihood of stage 4 fibrosis/cirrhosis, consider further testing to confirm and refer to hepatology. Interpreted by: Idania Mcdowell APRN.WALKER [facility] Fibroscan Fibrosis Risk <7 kPA = F0-F2 97%, F3+F4 3%, F4 <1% <10 kPA = F0-F2 91%, F3+F4 9%, F4 1.3% 10-15 kPA = F0-F2 56%, F3+F4 43%, F4 14% >15 kPA = F0-F2 26%, F3+F4 74%, F4 46% Grade CAP value up to 237 dB/M corresponds to S0 (< 10 % Fat) CAP value between (238 - 258 dB/M) corresponds to S1 (>/= 11 % Fat) CAP value between (259 - 289 dB/M) corresponds to S2 (>/= 33 % Fat) CAP value > 290dB/M corresponds to S3 (>/= 67 % Fat) stage 0 ( S0:< 10 % steatosis) stage 1 (>/= S1: 11%-33% steatosis) stage 2 (>/= S2: 34%-66% steatosis) stage 3 (>/= S3: > 66% steatosis) Reference Ankit Y, Carl Q, Ankit T, Shaye J, Ankit H, Christiano T. Controlled attenuation parameter for assessment of hepatic steatosis grades: a diagnostic meta-analysis. Int J Clin Exp Med. 2015 Feb 15;8(10):08756-72. PMID: 47068393; PMCID: [id number]. David Mcdaniel, Kwesi VARELA, Ruma M, Yuli F, Milo J, Farhana O, Lionel F, Олег M, Lacho G, Chris A, Vignesh E, Mele L, Emanuel G, Santiago A, Nicole U, Gerardo S, Oleksandr P, Aman V, de Celeste V, Sarah M, Malvin LACKEY. Refining the Baveno elastography criteria for the definition of compensated advanced chronic liver disease. J Hepatol. 2020;74(5):0723-3322. doi: 10.1016/j.jhep.2020.11.050. Epub 2019Apr 19. PMID: 71116242. José Mcdaniel, Tiffany B, April Mcdaniel, Errol Mcdaniel, Darion S, Roseanna Us, Wayne D, Maik Castañeda. AASLD practice guidance on the clinical assessment and management of nonalcoholic fatty liver disease. Hepatology. 2022;77(5):6623-4582. doi:10.1097/HEP.[id number] [facility] 07-14-2024 History of Present illness Narrative Fibroscan Report Date performed: July 14, 2024 Performed by: Gayle Fountain RN Patient fasted 3 hours:Yes Indication: Hepatic Steatosis Technical difficulties: None. Result: The reading was adequate. Please refer to get images report for individual readings Number of readings: 10 IQR %: 5 E (kpa): 4.8 CAP: 165 Impression The liver stiffness is 4.8 kPa which corresponds to 97% chance of stage F0-F2 fibrosis. The CAP analysis showed grade S0 of liver steatosis. Stage of liver fibrosis based on above kPa: A 97% chance of stage 0-2 fibrosis A 3% chance of stage 3-4 fibrosis (advanced fibrosis) A <1% chance of stage 4 fibrosis (cirrhosis). A kPa >20 indicates a high likelihood of stage 4 fibrosis/cirrhosis, consider further testing to confirm and refer to hepatology. Interpreted by: Idania Mcdowell APRN.REPORT CLERK [facility] Fibroscan Fibrosis Risk <7 kPA = F0-F2 97%, F3+F4 3%, F4 <1% <10 kPA = F0-F2 91%, F3+F4 9%, F4 1.3% 10-15 kPA = F0-F2 56%, F3+F4 43%, F4 14% >15 kPA = F0-F2 26%, F3+F4 74%, F4 46% Grade CAP value up to 237 dB/M corresponds to S0 (< 10 % Fat) CAP value between (238 - 258 dB/M) corresponds to S1 (>/= 11 % Fat) CAP value between (259 - 289 dB/M) corresponds to S2 (>/= 33 % Fat) CAP value > 290dB/M corresponds to S3 (>/= 67 % Fat) stage 0 ( S0:< 10 % steatosis) stage 1 (>/= S1: 11%-33% steatosis) stage 2 (>/= S2: 34%-66% steatosis) stage 3 (>/= S3: > 66% steatosis) Reference Ankit Y, Carl Q, Pham T, Shaye J, Ankit H, Christiano T. Controlled attenuation parameter for assessment of hepatic steatosis grades: a diagnostic meta-analysis. Int J Clin Exp Med. 2015 Feb 15;8(10):66041-06. PMID: 61096563; PMCID: [id number]. David Mcdaniel, Kwesi AVERY, Ruma M, Yuli F, Milo J, Farhana O, Lionel F, Олег M, Lacho G, Chris A, Vignesh E, Mele L, Emanuel G, Santiago A, iNcole U, Gerardo S, Oleksandr P, Aman V, de Celeste V, Sarah M, Malvin LACKEY. Refining the Baveno elastography criteria for the definition of compensated advanced chronic liver disease. J Hepatol. 2020;74(5):0878-1879. doi: 10.1016/j.jhep.2020.11.050. Ep2019Apr 19. PMID: 00227175. José Mcdaniel, Tiffany Reeves, April Mcdaniel, Errol Mcdaniel, Darion S, Roseanna Us, Wayne Us, Maik Castañeda. AASLD practice guidance on the clinical assessment and management of nonalcoholic fatty liver disease. Hepatology. 2022;77(5):1639-8318. doi:10.1097/HEP.[id number] documented in this encounter [facility] 06-11-2024 Telephone encounter Note Attempted to contact patient to schedule EGBR. No answer, LVM requesting return call to office. [facility] 06-11-2024 Miscellaneous Notes Attempted to contact patient to schedule EGBR. No answer, LVM requesting return call to office. documented in this encounter [facility] 06-11-2024 History of Present illness Narrative Images from the original note were not included. [facility] [address] [facility] [id number] Visit type: Established Patient Reason for Visit: Annual Exam (CPE. Recently had labs done through the [facility], you can see these in chart. ) Assessment and Plan 1. Well adult exam Doing well. -Encouraged healthy lifestyle, exercise and diet. To obtain and maintain health weight. -continue wt loss - Comprehensive metabolic panel; Future - Hemoglobin A1c; Future - TSH; Future - Comprehensive metabolic panel - Hemoglobin A1c - TSH 2. Acquired hypothyroidism Recheck status on levothyrxoine 3. Elevated ferritin (Primary) May be from wt loss -recheck labs -check mutation lab - Ferritin; Future - Hemochromatosis mutation; Future - Iron and TIBC; Future - Ferritin - Hemochromatosis mutation - Iron and TIBC 4. 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 She has no complaints today. Comes in yearly. She sees [facility] as well. Obesity. She is s/p gastric bypass in 2003. Seeing GI at [facility]. Had outlet narrowed and helped. Less carbs more protein. Changed diet a lot and very pleased with her wt loss and how feeling Patient Weight 06/11/24 187 lb (84.8 kg) 05/21/23 220 lb (99.8 kg) 07/04/22 234 lb (106 kg) Hypothyroidism Current symptoms: none . Patient denies change in energy level, diarrhea, heat / cold intolerance, nervousness, and palpitations. Symptoms have been well-controlled. She has not had TSH checked in last year with her GI follow ups. 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 Raynauds still an issue Vit D Def. Replaced Ferritin is up. Normal in 2022. Since she has lost wt has been elevated 300's last two checks. GI following it. Fibroscan was 5.4 kPa. She has no family hx iron issues. Not on supplement now. Health Maintenance: Cervical Cancer Screening: N/A - Up to Date and Follows with [facility] - LMP: No LMP recorded. Patient has had a hysterectomy. Breast Cancer Screening: with [facility] Colon Cancer Screening: N/A Up-to-Date The 10-year ASCVD risk score (Amado DK, et al., 2019) is: 1.1% Values used to calculate the score: Age: 53 years Sex: Female Is Non- : No Diabetic: No Tobacco smoker: No Systolic Blood Pressure: 113 mmHg Is BP treated: No HDL Cholesterol: 59 mg/dL Total Cholesterol: 198 mg/dL Review of Systems Constitutional: Negative for appetite change, fatigue and unexpected weight change. Eyes: Negative for pain and visual disturbance. Respiratory: Negative for apnea, cough, chest tightness and shortness of breath. Cardiovascular: Negative for chest pain, palpitations and leg swelling. Gastrointestinal: Negative for abdominal distention, abdominal pain, anal bleeding, blood in stool, constipation, diarrhea, nausea, rectal pain and vomiting. Genitourinary: Negative for dysuria, frequency and hematuria. Musculoskeletal: Negative for arthralgias, back pain and gait problem. Skin: Negative for rash. Neurological: Negative for dizziness and headaches. Hematological: Negative for adenopathy. Does not bruise/bleed easily. Psychiatric/Behavioral: Negative for dysphoric mood and sleep disturbance. The patient is not nervous/anxious. No Known Allergies Outpatient Medications Prior to Visit Medication Sig Dispense Refill ergocalciferol (Vitamin D2) 1.25 MG (84357 UT) capsule TAKE ONE CAPSULE BY MOUTH ONCE WEEKLY 188 capsule 0 levothyroxine (Synthroid, Levoxyl) 100 MCG tablet Take 1 tablet (100 mcg) by mouth daily. 90 tablet 0 Multiple Vitamin (multivitamin) capsule Take 1 capsule by mouth daily. omeprazole (PriLOSEC) [address] capsule Take 40 mg by mouth twice a day. (Patient taking differently: Take 40 mg by mouth every morning (before breakfast).) ferrous sulfate 325 (65 Fe) MG tablet Take 65 mg by mouth in the morning and 65 mg in the evening. Hydroxychloroquine Sulfate 300 MG tablet TAKE 1 TABLET BY MOUTH WITH FOOD or milk ONCE DAILY No facility-administered medications prior to visit. Past Medical History: Diagnosis Date Abnormal Pap smear of cervix 2010 Autoimmune disorder (HCC) 11/09/2018 Cancer (CMS/HCC) (HCC) 2016 Cardiac dysrhythmia Chronic anemia Connective tissue disease (HCC) Elevated BP without hypertension GERD (gastroesophageal reflux disease) Grief grief adjustment Hypoglycemia Hypothyroidism Lung nodule Obesity 08 19 1999 Osteoarthritis 1998, 2001 Varicose veins Vitamin D deficiency Social History Socioeconomic History Marital status: Tobacco Use Smoking status: Never Passive exposure: Never Smokeless tobacco: Never Vaping Use Vaping status: Never Used Substance and Sexual Activity Alcohol use: Never Drug use: Never Sexual activity: Yes Partners: Male control/protection: Female Sterilization Comment: Hysterectomy Social Drivers of Health Financial Resource Strain: Low Risk (05/21/2023) Overall Financial Resource Strain (CARDIA) Difficulty of Paying Living Expenses: Not hard at all Food Insecurity: No Food Insecurity (05/21/2023) Hunger Vital Sign Worried About Running Out of Food in the Last Year: Never true Ran Out of Food in the Last Year: Never true Transportation Needs: No Transportation Needs (05/21/2023) PRAPARE - Transportation Lack of Transportation (Medical): No Lack of Transportation (Non-Medical): No Physical Activity: Insufficiently Active (05/21/2023) Exercise Vital Sign Days of Exercise per Week: 3 days Minutes of Exercise per Session: 20 min Stress: No Stress Concern Present (05/21/2023) [employer] - Occupational Stress Questionnaire Feeling of Stress : Only a little Social Connections: Socially Integrated (05/21/2023) Social Connection and Isolation Panel [NHANES] Frequency of Communication with Friends and Family: More than three times a week Frequency of Social Gatherings with Friends and Family: More than three times a week Attends Anglican Services: More than 4 times per year Active Member of Clubs or Organizations: Yes Attends Club or Organization Meetings: More than 4 times per year Marital Status: Intimate Partner Violence: Patient Declined (05/21/2023) Humiliation, Afraid, Rape, and Kick questionnaire Fear of Current or Ex-Partner: Patient declined Emotionally Abused: Patient declined Physically Abused: Patient declined Sexually Abused: Patient declined Housing Stability: Low Risk (05/21/2023) Housing Stability Vital Sign Unable to Pay for Housing in the Last Year: No Number of Places Lived in the Last Year: 1 Unstable Housing in the Last Year: No Past Surgical History: Procedure Laterality Date ABDOMINAL SURGERY 2002 ANTERIOR CRUCIATE LIGAMENT REPAIR Right 11/10/2019 BARIATRIC SURGERY 2004 GASTRIC BYPASS 04 18 2004 HERNIA REPAIR 2002 HYSTERECTOMY OTHER SURGICAL HISTORY Right 05/2016 posterior right calf melanoma removed. OTHER SURGICAL HISTORY 07 10 2012 vein sclerotherapy and 09/2012 TOTAL ABDOMINAL HYSTERECTOMY W/ BILATERAL SALPINGOOPHORECTOMY 09 23 2013 total UPPER GASTROINTESTINAL ENDOSCOPY 11 02 2013 chronic epigastric pain related to patients gastric pouch, no evidence of pathology Past Surgical History: Procedure Laterality Date ABDOMINAL SURGERY 2002 ANTERIOR CRUCIATE LIGAMENT REPAIR Right 11/10/2019 BARIATRIC SURGERY 2004 GASTRIC BYPASS 08 2004 HERNIA REPAIR 2002 HYSTERECTOMY OTHER SURGICAL HISTORY Right 05/2016 posterior right calf melanoma removed. OTHER SURGICAL HISTORY 07 10 2012 vein sclerotherapy and 09/2012 TOTAL ABDOMINAL HYSTERECTOMY W/ BILATERAL SALPINGOOPHORECTOMY 09 23 2013 total UPPER GASTROINTESTINAL ENDOSCOPY 11 02 2013 chronic epigastric pain related to patients gastric pouch, no evidence of pathology Family History Problem Relation Name Age of Onset Alcohol abuse Father Asael Cancer Father Asael pancreatic ca, liver Diabetes Father Asael Diabetes Paternal Grandmother Mary Kay HTN Kidney disease Paternal Grandmother Mary Kay Alcohol abuse Brother Homar COPD Brother Homar Diabetes Paternal Grandfather Surinder Stroke Mother Janae Bipolar disorder Mother Janae Other ([id number]) Mother Janae manic depressive Mental illness Mother Janae Suicide Attempts Mother Janae Hypertension Maternal Grandmother [place] Heart attack Heart disease Maternal Grandmother [place] No Known Problems Sister High Blood Pressure Other relative from this condition Objective BP 113/75 (BP Location: Left arm, Patient Position: Sitting, BP Cuff Size: Adult) Pulse 73 Temp 36.2 C (97.2 F) (Temporal) Ht 5' 1 (1.549 m) Wt 187 lb (84.8 kg) SpO2 98% BMI 35.33 kg/m Patient Weight 06/11/24 187 lb (84.8 kg) 05/21/23 220 lb (99.8 kg) 07/04/22 234 lb (106 kg) Physical Exam Vitals and nursing note reviewed. Constitutional: General: She is not in acute distress. Appearance: Normal appearance. She is not ill-appearing, toxic-appearing or diaphoretic. HENT: Head: Normocephalic and atraumatic. Right Ear: Tympanic membrane normal. Left Ear: Tympanic membrane normal. Mouth/Throat: Mouth: Mucous membranes are moist. Pharynx: Oropharynx is clear. No oropharyngeal exudate or posterior oropharyngeal erythema. Eyes: General: No scleral icterus. Extraocular Movements: Extraocular movements intact. Conjunctiva/sclera: Conjunctivae normal. Pupils: Pupils are equal, round, and reactive to light. Cardiovascular: Rate and Rhythm: Normal rate and regular rhythm. Heart sounds: No murmur heard. Pulmonary: Effort: Pulmonary effort is normal. Breath sounds: Normal breath sounds. Abdominal: General: Abdomen is flat. Bowel sounds are normal. Palpations: Abdomen is soft. Tenderness: There is no abdominal tenderness. Musculoskeletal: Cervical back: Normal range of motion and neck supple. Right lower leg: No edema. Left lower leg: No edema. Neurological: General: No focal deficit present. Mental Status: She is alert and oriented to person, place, and time. Psychiatric: Mood and Affect: Mood normal. Behavior: Behavior normal. Thought Content: Thought content normal. Judgment: Judgment normal. Chart Clean Up: Medications Discontinued During This Encounter Medication Reason ferrous sulfate 325 (65 Fe) MG tablet Med list cleanup Hydroxychloroquine Sulfate 300 MG tablet Med list cleanup Demetri Arnold MD 06/11/2024 2:06 PM documented in this encounter [facility] [email or web address] 05-11-2024 History of Present illness Narrative Images from the original note were not included. Demetri Arnold DO [address] [facility] [place] [address] GI/Bariatric Endoscopy Clinic Visit Gastroenterology, Hepatology, and Nutrition Department ?[facility] ? 05/11/2024 ? The patient encounter is a virtual/telephone visit today, 05/11/2024, in lieu of an office visit due to the current COVID-19 pandemic crisis and need for social distancing. Reason for Visit: HX RYGB c/b weight regain now 6 months post APC, obesity class I, weight management Patient is: Established patient Location of Provider: Hospital Location of Patient: Home Consent for virtual care, including informing the patient that insurance will be billed, and that in-person care is available in case of emergencies or as needed otherwise, was discussed at the time of scheduling. Dear Demetri Arnold DO, ? I had the pleasure of seeing Melissa Nichols in the [facility] GI/Bariatric Endoscopy Clinic for HX RYGB c/b weight regain now 6 months post APC, obesity class I, weight management Interval: - Patient presents to f/u on weight management now 6 months post APC revision - Weight loss plataeud at 178 lbs tried topamax, years ago phen-fen, and wellbutrin in the past discussed all AOM she is not interested in starting any AOM at this time. Also discussed potential TORe revision and will discuss with our MDT prior to potential TORe procedure - Taking bariatric chewable MVI consider switching to one a day - Weather permitting she is walking 2 miles a day; also active with rower or stepper 4-5 times a week Prior History/ note from last VV 01/22/2024, Dr. Thomas: Melissa Nichols has a history of obesity since childhood. Comorbidities are: obesity class III, vitamin D deficiency, complex endometrial hyperplasia, anemia, degenerative joint disease, arthritis, positive JESSICA (nodules on joints f/u with [facility]bin W[facility] Dr. Woo) and hypothyroid. Melissa Nichols underwent RYGB at [place] with Dr. Read on 04/2004. Barretts Esophagus prior to RYGB. no complications post RYGB. She denies having any reflux or heartburn. 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 The patient then experienced weight regain in 2019 and now weighs 231 lbs. The patient is here today complaining of the ability to eat larger portions and has satiety that does not last. Weight gain/regain and Obesity disease: The patient reports could eat several high caloric meals and beverages per day despite not feeling very hungry. Also not feeling satiety or full after eating several meals. Reports craving to eat throughout the day. This has resulted in weight gain/regain and worsening of obesity. Patient has tried to control the diet and be able to lose weight up to 20 lbs. Unfortunately, the patient would subsequently experience rebound weight regain following lifestyle modification interventions (diet + exercise). Patient has tried increasing physical activity or exercise, Weight Watcher, Fast metabolism diet (eat 4-6 small meals a day), Keto diet, high protein/low carb sugar diets, Intermittent fasting, Meal replacement plan, multiple dietitian healthy diets (low carbs, low fat, high protein diets), behavioral therapy and baritastic phone shen. Patient has tried medications (Topamax, Phen fen) and is following obesity medicine. She is not interested in revisional bariatric surgery. Patient exercises 4 times a week for 20-30 min every time: walking, chair yoga, treadmil, bike.Unfortunately, despite all the above interventions, patient's weight problem has started to severely affect patient's lifestyle and health. Specifically, patient has been experiencing ACL/MCL Repair from torn meniscus, also broke her ankle in 2021 which is exacerbated after walking 0.5-1 miles and this is now impairing the patient from been more physically active. Melissa Nichols was seen by primary care, orthopedics, bariatric specialities who recommended to lose weight and weight loss interventions. 24 hrs Diet recall:WW point system Following diet protocol Wakes up to eat: no Current Exercise Activity: Elliptical and rowing machine for 20 mins 3x a week not as active limited from back pain stretching Weight History: Pre-RYGB weight: 280 lbs (BMI 51.2). Post-RYGB ava: 160 lbs (BMI 29.3). Ht 155.5 cm (5' 1.22) Wt 80.7 kg (178 lb) LMP 09/03/2013 BMI 33.39 kg/m LMP 09/03/2013 Goal weight BMI < 27: 162.3 Goal weight BMI < 30: 180.3 Last 5 Encounter Wt Readings: Date: Wt: 02/25/2022 106.6 kg (235 lb) 02/15/2022 106.6 kg (235 lb) 12/07/2021 108 kg (238 lb) 12/06/2021 108.4 kg (239 lb) 12/04/2020 101.6 kg (224 lb) Risk factors: Tobacco use: No EtOH intake: Rare social NSAIDs: No H. Pylori: No (EGD 2003 prior showed barretts repeat EGD normal) FH:No, brother recently diagnosed with rectal cancer and father with liver and pancreatic ca PH: No Relevant Medications: Phen fin in the past Topamax SE of nausea, not feeling well Wellbutrin in the past Vitamins/Minerals Supplements: - Vitamin D3 - Calcium 1200 mg - Multivitamin bariatric fusion not taking recommended amount Relevant Bariatric Procedures/Surgeries Bariatric Surgeon: Jacek at [facility] Bariatric Surgery: 2003 Abisai-en-Y Gastric Bypass (RYGB APC on 10/30/23 Past Medical History: PAST MEDICAL HISTORY Diagnosis Date Broken ankle Right ankle no surgery Hypothyroidism Melanoma (HCC) Pneumonia 11/25/2018 Past Surgical History: PAST SURGICAL HISTORY Procedure Laterality Date DILATION & CURETTAGE DX&/THER NONOBSTETRIC 08/05/2013 Polypectomy EGD BARIATRIC 10/2023 EGD W/O BRSH SPEC VARICIES INJ 11/05/2023 ENDOVENOUS LASER, 1ST VEIN 07/22, 12/22, 03/24 [address]SS[address] Linton GASTRIC BYPASS HX 2005 HYSTERECTOMY HX KNEE SURGERY HX Right 11/10/2019 ACL/MCL/Miniscus LIG/TRNSXJ FLP TUBE ABDL/VAG APPR UNI/BI 2010 MELANOMA OF SKIN BIOPSY SYN RPT MELANOMA OF SKIN EXCISION SYN RPT REPAIR UMBILICAL HERNIA 2002, 2003 mesh SKIN BIOPSY HX Medications: Current Outpatient Medications Medication Sig Dispense Refill omeprazole (PRILOSEC) 40 mg capsule TAKE 1 CAPSULE BY MOUTH TWO TIMES A DAY. OPEN CAPSULE SPRINKLE OVER APPLESAUCE AND TAKE 30 MINUTES BEFORE BREAKFAST AND 30 MINUTES BEFORE DINNER 180 capsule 0 ergocalciferol, vitamin D2, (DRISDOL) 50,000 unit capsule Take 1 capsule by mouth once each week. levothyroxine (SYNTHROID) 100 mcg tablet Take 1 tablet by mouth once daily. Multivitamin capsule Take 1 capsule by mouth once daily. No current facility-administered medications for this visit. Allergies: ALLERGIES No Known Allergies Family History: No known colon cancer, polyps, IBD, celiac disease, pancreatic disease, or liver disease. FAMILY HISTORY Problem Relation Age of Onset Stroke Mother 42 DVT Mother other (CHF) Mother other (Bipolar Disorder) Mother dx after stroke Alcohol/Drug Father alcohol Diabetes Father Hypertension Father Cancer Father liver and pancreatic Hypertension Sister DVT Sister Rectal Cancer Brother COPD Brother Alcohol abuse Brother Hypertension Maternal Grandmother Hyperlipidemia Maternal Grandmother COPD Maternal Grandmother Diabetes Paternal Grandmother Kidney failure Paternal Grandmother Diabetes Paternal Grandfather No Known Problems Daughter No Known Problems Daughter ? Social History: Social History Tobacco Use Smoking status: Never Passive exposure: Never Smokeless tobacco: Never Vaping Use Vaping status: Never Used Substance Use Topics Alcohol use: No Drug use: No Tobacco: Tobacco Use: Never Alcohol: Alcohol Use: No Illicits: Drug Use: No Review of Systems: Review of Systems Constitutional: Negative for chills and fever. Respiratory: Negative for cough. Cardiovascular: Negative for chest pain. Gastrointestinal: Negative for abdominal pain, blood in stool, constipation, diarrhea, nausea and vomiting. Constitutional: no fevers, chills, night sweats Cardiovascular: no chest pain Pulmonary: no shortness of breath Eyes: no visual changes or eye irritation Musculoskeletal: no myalgias or arthralgias Skin: no new or changing skin lesions, rashes or pruritis 12 point ROS otherwise negative. Physical Examination: Ht 155.5 cm (5' 1.22) Wt 80.7 kg (178 lb) LMP 09/03/2013 BMI 33.39 kg/m Physical Exam virtual/videocall encounter: Patient reported height 5'1.22 and weight 178 lbs LMP 09/03/2013 General - Normal, healthy, cooperative, in no acute distress Able to interact verbally by video conference Psych - ORIENTATION: normal to time place, person and situation Mood/Affect: AFFECT AND MOOD: Normal Head/Neuro - Normal size and shape Facial appearance normal Pulmonary - respiratory effort normal Cardiovascular - patient describes extremities normal, warm, no cyanosis,no clubbing and no edema Abdominal - Areas of pain/tenderness: denies Skin - abnormal lesions not visualized Motor - patient seen sitting with Normal appearing strength and coordination ? Laboratory Data: Lab Results Component Value Date INR 1.1 10/16/2023 Lab Results Component Value Date [id number] 04/23/2024 TSH Date Value Ref Range Status 10/13/2009 1.75 0.34 - 5.60 UIU/ML Final Comment: TSH: ULTRASENSITIVE METHOD- LOWER DETECTION LIMIT = 0.01 UIU/ML WBC (k/uL) Date Value 04/23/2024 3.18 (L) RBC (m/uL) Date Value 04/23/2024 4.11 Hemoglobin (g/dL) Date Value 04/23/2024 12.7 Hematocrit (%) Date Value 04/23/2024 40.0 MCV (fL) Date Value 04/23/2024 97.3 MCH (pg) Date Value 04/23/2024 30.9 MCHC (g/dL) Date Value 04/23/2024 31.8 RDW-CV (%) Date Value 04/23/2024 12.6 Platelet Count (k/uL) Date Value 04/23/2024 260 MPV (fL) Date Value 04/23/2024 10.0 Potassium (mmol/L) Date Value 04/23/2024 4.2 06/30/2019 3.3 Sodium (mmol/L) Date Value 04/23/2024 141 06/30/2019 137 Creatinine (mg/dL) Date Value 04/23/2024 0.75 06/30/2019 0.79 BUN (mg/dL) Date Value 04/23/2024 15 06/30/2019 8 Glucose (mg/dL) Date Value 04/23/2024 93 06/30/2019 138 INR (no units) Date Value 10/16/2023 1.1 TSH (UIU/ML) Date Value 10/13/2009 1.75 Glucose (mg/dL) Date Value 04/23/2024 93 BUN (mg/dL) Date Value 04/23/2024 15 Creatinine (mg/dL) Date Value 04/23/2024 0.75 Sodium (mmol/L) Date Value 04/23/2024 141 Potassium (mmol/L) Date Value 04/23/2024 4.2 Chloride (mmol/L) Date Value 04/23/2024 104 CO2 (mmol/L) Date Value 04/23/2024 29 Protein, Total (g/dL) Date Value 04/23/2024 7.2 Albumin (g/dL) Date Value 04/23/2024 4.3 Calcium, Total (mg/dL) Date Value 04/23/2024 9.5 Alkaline Phosphatase (U/L) Date Value 04/23/2024 99 Bilirubin, Total (mg/dL) Date Value 04/23/2024 0.4 AST (U/L) Date Value 04/23/2024 25 ALT (U/L) Date Value 04/23/2024 29 Glucose (mg/dL) Date Value 04/23/2024 93 06/30/2019 138 Creatinine (mg/dL) Date Value 04/23/2024 0.75 06/30/2019 0.79 Potassium (mmol/L) Date Value 04/23/2024 4.2 06/30/2019 3.3 AST (U/L) Date Value 04/23/2024 25 06/30/2019 21 ALT (U/L) Date Value 04/23/2024 29 06/30/2019 24 Hemoglobin A1C (%) Date Value 04/23/2024 5.1 Cholesterol, Total Date Value 04/23/2024 196 mg/dL 10/13/2009 173 MG/DL HDL Cholesterol Date Value 04/23/2024 55 mg/dL 10/13/2009 61 MG/DL ] LDL Cholesterol Date Value 04/23/2024 127 mg/dL 10/13/2009 92 MG/DL Triglyceride Date Value 04/23/2024 72 mg/dL 10/13/2009 101 MG/DL Albumin/Creat Ratio (mg/g) Date Value 10/16/2023 <27 Imagin10/16/2023 Fibroscan Impression The reading was adequate. FS =5.4 kPA. The CAP score is 249 and corresponds to steatosis grade of S1. Endoscopy: 10/30/2023 EGD Findings: The examined esophagus was normal. The Z line was regular at 35 cm from incisors. The GE junction and hiatus were at 35 cm from incisors. Evidence of a Abisai-en-Y gastric bypass (RYGB) was found. The gastrojejunal anastomosis (GJA) was characterized by normal appearing mucosa. No ulcers, erosion, sutures or zeke. The GJA outlet was dilated 30 mm diameter and was traversed. The gastric pouch extended from 35 cm to 40 cm from the incisors. No gastro-gastric fistula found. The jejunum was normal at 60 cm (both Abisai/alimentary and blind limbs). No food or debris in the blind limb. The small bowel was not dilated and there was no evidence of excess fluid or distal obstruction. The jejuno-jejunal anastomosis was not evaluated. At the conclusion of the diagnostic endoscopy 120 mL of a dilute simethicone solution was instilled in the jejunum. APC REVISION OF GASTROJEJUNAL ANASTOMOSIS Attention was then given to the gastrojejunal anastomosis. The margin of the anastomosis was treated with Argon Plasma Coagulation for revision. There were no mucosal injuries to the proximal esophagus. The examined jejunum was normal. Impression: - Normal examined jejunum. - No specimens collected. Estimated Blood Loss: Estimated blood loss: none. Assessment and Recommendations: ??53 year old female with history as per HPI presenting to GI/Bariatric Endoscopy clinic for evaluation of HX RYGB c/b weight regain now 6 months post APC, obesity class I, weight management . Weight History: Pre-RYGB weight: 280 lbs (BMI 51.2). Post-RYGB ava: 160 lbs (BMI 29.3). weight: 234 lbs (BMI 42.80) weight: 216 lbs (BMI 41.9) weight: 213 lbs (BMI 40.25) weight: 217 lbs (BMI 41) Pre APC weight:216 lbs (BMI 39) 1 month post APC weight: 200 lbs (BMI 36.5) Represents 7.4% TBWL 3 months after APC: 185 lbs (14.35% TBWL) 6 month post APC weight: 178 lbs (BMI 33) Represents 17.5% TBWL Recommendations: - Consider TORe revision will discuss with team - Complete 6 month post APC fibroscan - Continue PPI omeprazole 40 mg open capsule sprinkle over applesauce and take 30 mins before breakfast and 30 mins before dinner - Stay hydrated aim for at least 64 fluid ounces of hydrating fluids - Separate drinking from eating by 30 minutes - Continue diet and lifestyle modifications and aim for dietary goals discussed with dietitian - Continue to see and follow up with one of our GI bariatric endoscopy dietitians, Trey Ceron RD or Angie Roth RD - Continue to see and follow up with GI bariatric endoscopy psychologist, Dr. Oliveros - Continue to increase physical activity as tolerated aim for 200 mins of cardio and incorporate strength training exercises weekly - RTC 1-2 weeks prior to TORe OR in 3 months for follow up of medically supervised weight management program VIRTUAL VISIT I spent a total of 30 minutes during this real-time, interactive virtual clinical encounter, which was conducted virtually using HIPAA compliant videoconferencing technology. Greater than 50% of the time spent was devoted to counseling and coordinating care including review of records, pertinent lab data and studies, as well as discussing diagnostic evaluation and work up, planned therapeutic interventions and future disposition of care. This includes any additional research needed to obtain further information in formulating the plan of care of this patient. This includes counseling the patient about her disease and diagnosis, specifically: complications of bariatric surgery, weight management We reviewed coronavirus precautions including avoiding public places, maintaining 6 feet of distance from other persons when in public, no sick contacts, and fastidious handwashing. Thank you for allowing me to participate in the care of your patient. If you have any questions or concerns, please feel free to contact me. Maranda Castro APRN.CNP GI Bariatric Endoscopy 05/11/2024 4:00 PM documented in this encounter [facility] 05-11-2024 Note HNO ID: [id number] Author: MARANDA CASTRO APRN.CNP Service: ? Author Type: Nurse Practitioner Type: Progress Notes Filed: 05/17/2024 21:06 Note Text: Demetri Arnold DO [address] [place] [address] [place] [id number] GI/Bariatric Endoscopy Clinic Visit Gastroenterology, Hepatology, and Nutrition Department ?[facility] ? 05/11/2024 ? The patient encounter is a virtual/telephone visit today, 05/11/2024, in lieu of an office visit due to the current COVID-19 pandemic crisis and need for social distancing. Reason for Visit: HX RYGB c/b weight regain now 6 months post APC, obesity class I, weight management Patient is: Established patient Location of Provider: Hospital Location of Patient: Home Consent for virtual care, including informing the patient that insurance will be billed, and that in-person care is available in case of emergencies or as needed otherwise, was discussed at the time of scheduling. Dear Demetri Arnold, DO, ? I had the pleasure of seeing Melissa Nichols in the [facility] GI/Bariatric Endoscopy Clinic for HX RYGB c/b weight regain now 6 months post APC, obesity class I, weight management Interval: - Patient presents to f/u on weight management now 6 months post APC revision - Weight loss plataeud at 178 lbs tried topamax, years ago phen-fen, and wellbutrin in the past discussed all AOM she is not interested in starting any AOM at this time. Also discussed potential TORe revision and will discuss with our MDT prior to potential TORe procedure - Taking bariatric chewable MVI consider switching to one a day - Weather permitting she is walking 2 miles a day; also active with rower or stepper 4-5 times a week Prior History/ note from last VV 01/22/2024, Dr. Thomas: Melissa Nichols has a history of obesity since childhood. Comorbidities are: obesity class III, vitamin D deficiency, complex endometrial hyperplasia, anemia, degenerative joint disease, arthritis, positive JESSICA (nodules on joints f/u with Bobbin Winder Dr. Woo) and hypothyroid. Melissa Nichols underwent RYGB at [place] with Dr. Read on 04/2004. Barretts Esophagus prior to RYGB. no complications post RYGB. She denies having any reflux or heartburn. 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 The patient then experienced weight regain in 2019 and now weighs 231 lbs. The patient is here today complaining of the ability to eat larger portions and has satiety that does not last. Weight gain/regain and Obesity disease: The patient reports could eat several high caloric meals and beverages per day despite not feeling very hungry. Also not feeling satiety or full after eating several meals. Reports craving to eat throughout the day. This has resulted in weight gain/regain and worsening of obesity. Patient has tried to control the diet and be able to lose weight up to 20 lbs. Unfortunately, the patient would subsequently experience rebound weight regain following lifestyle modification interventions (diet + exercise). Patient has tried increasing physical activity or exercise, Weight Watcher, Fast metabolism diet (eat 4-6 small meals a day), Keto diet, high protein/low carb sugar diets, Intermittent fasting, Meal replacement plan, multiple dietitian healthy diets (low carbs, low fat, high protein diets), behavioral therapy and baritastic phone shen. Patient has tried medications (Topamax, Phen fen) and is following obesity medicine. She is not interested in revisional bariatric surgery. Patient exercises 4 times a week for 20-30 min every time: walking, chair yoga, treadmil, bike.Unfortunately, despite all the above interventions, patient's weight problem has started to severely affect patient's lifestyle and health. Specifically, patient has been experiencing ACL/MCL Repair from torn meniscus, also broke her ankle in 2021 which is exacerbated after walking 0.5-1 miles and this is now impairing the patient from been more physically active. Melissa Nichols was seen by primary care, orthopedics, bariatric specialities who recommended to lose weight and weight loss interventions. 24 hrs Diet recall:[employer] point system Following diet protocol Wakes up to eat: no Current Exercise Activity: Elliptical and rowing machine for 20 mins 3x a week not as active limited from back pain stretching Weight History: Pre-RYGB weight: 280 lbs (BMI 51.2). Post-RYGB ava: 160 lbs (BMI 29.3). Ht 155.5 cm (5' 1.22) Wt 80.7 kg (178 lb) LMP 09/03/2013 BMI 33.39 kg/m? LMP 09/03/2013 Goal weight BMI < 27: 162.3 Goal weight BMI < 30: 180.3 Last 5 Encounter Wt Readings: Date: Wt: 02/25/2022 106.6 kg (235 lb) 02/15/2022 106.6 kg (235 lb) 12/07/2021 108 kg (238 lb) 12/06/2021 108.4 kg (23 (more content not included)... [facility] 04-29-2024 Miscellaneous Notes Medication name: levothyroxine (Synthroid, Levoxyl Medication dosage: 100mcg Monthly quantity needed: 30 How many day supply requestin days Medication route: oral (PO) Medication administration time(s): daily If taking medication PRN, reason for taking medication: N/A If this is a controlled substance do you receive this or any other controlled medication from any other doctor or facility: N/A Ordering provider: Dr Vazquez Date of last office visit: 05/21/23 Date of next office visit: 06/11/24 Date of last refill: (see medication tab): 09/25/23 Updated/Validated preferred pharmacy: Yes Patient instructed to contact the pharmacy prior to picking up the medication: Yes documented in this encounter [facility] 04-29-2024 Telephone encounter Note Medication name: levothyroxine (Synthroid, Levoxyl Medication dosage: 100mcg Monthly quantity needed: 30 How many day supply requestin days Medication route: oral (PO) Medication administration time(s): daily If taking medication PRN, reason for taking medication: N/A If this is a controlled substance do you receive this or any other controlled medication from any other doctor or facility: N/A Ordering provider: Dr Vazquez Date of last office visit: 05/21/23 Date of next office visit: 06/11/24 Date of last refill: (see medication tab): 09/25/23 Updated/Validated preferred pharmacy: Yes Patient instructed to contact the pharmacy prior to picking up the medication: Yes [facility] 04-22-[address] - 04/22/2024 3:55 PM EST Nutrition Intervention 04/22/2024: Modify type and amount of food at meals and snacks 1. Protein: Continue to strive for 74 g protein per day. Eat protein first at all meals. Lean meats, low fat/part skim dairy products, peanut butter, eggs, beans. 2. Eat 4 small meals per day or 3 meals and 1-2 small snacks for additional protein 3. Fluids: 64 oz per day, minimum. No carbonation, no caffeine, no calories, no alcohol. 4. Vitamin/minerals: Take daily multivitamin with 200 % daily value for all vitamin/minerals plus VIt D3 3,000 IU, Vit B12 500 mcg, Iron 45 mg and calcium citrate 4629-9890 mg/day . It is okay to use combination vitamin/minerals to reduce pill volume. Page 43 of Your Guide to Surgery 5. Exercise: strive for daily activity - combine strength training and cardio for best workouts. Goal is 30 minutes 5-6x per week. 6. Practice these: Eat in this order protein first, vegetable and fruit second and whole grain carbohydrates last. * Separate eating and drinking by 30 minutes * Chew your food 20-30x per bite * Meals should last 30 minutes Calories: [id number] documented in this encounter [facility] 04-22-2024 Note HNO ID: [id number] Author: ANGIE ROTH RD Service: ? Author Type: Registered Dietitian Type: Progress Notes Filed: 04/22/2024 15:55 Note Text: [facility] Nutrition Therapy: Virtual Consult - Re-assessment I have communicated my name and active licensure. The patient?s identity and physical location were verified at the time of this visit. Either the patient or their legal medical detail representative has been informed of the risks and benefits of -- and alternatives to -- treatment through a remote evaluation and consents to proceed with the evaluation remotely. Nutrition Diagnosis: Altered Gastrointestinal Tract Function, related to, S/P bariatric surgery, as evidenced by surgical and weight history RECOMMENDED MALNUTRITION DIAGNOSIS: NO MALNUTRITION IDENTIFIED NUTRITION CARE PLAN: Nutrition Intervention 04/22/2024: Modify type and amount of food at meals and snacks 1. Protein: Continue to strive for 74 g protein per day. Eat protein first at all meals. Lean meats, low fat/part skim dairy products, peanut butter, eggs, beans. 2. Eat 4 small meals per day or 3 meals and 1-2 small snacks for additional protein 3. Fluids: 64 oz per day, minimum. No carbonation, no caffeine, no calories, no alcohol. 4. Vitamin/minerals: Take daily multivitamin with 200 % daily value for all vitamin/minerals plus VIt D3 3,000 IU, Vit B12 500 mcg, Iron 45 mg and calcium citrate 5461-5963 mg/day . It is okay to use combination vitamin/minerals to reduce pill volume. Page 43 of Your Guide to Surgery 5. Exercise: strive for daily activity - combine strength training and cardio for best workouts. Goal is 30 minutes 5-6x per week. 6. Practice these: Eat in this order protein first, vegetable and fruit second and whole grain carbohydrates last. * Separate eating and drinking by 30 minutes * Chew your food 20-30x per bite * Meals should last 30 minutes Calories: 5670-9388 Nutrition Monitoring AND Evaluation: BMI <30 Need for Follow up: 3 months (Call [phone] option 3) PROGRESS: Interval History: 6 months post APC (10/30/23) Net weight loss 53# (231 lbs initial) 17.6 % TWL tracking ahead of average Pre-procedure weight: 216 pounds 7 pounds weight loss since last assessment (185 lbs) Diet recall indicates continued tolerance to Phase 5. Exercise is regular. Having a harder time now it is getting colder. Discussed increasing intensity when able. 8820-4568 calories/day inadequate-adequate intake ~70 grams protein intake/day adequate intake 90-100 oz fluid intake/day adequate intake Taking all recommended vitamin/minerals. Labs: no new labs to review. Resting Metabolic Rate:1361 Energy needs for weight loss 3470-5968 (15-20kcal/kg) Protein needs: 74 grams protein per day (1.2 g/kg IBW kg) Nutrition Intervention 01/22/2024: Modify type and amount of food at meals and snacks 1. Protein: Continue to strive for 74 g protein per day. Eat protein first at all meals. Lean meats, low fat/part skim dairy products, peanut butter, eggs, beans. 2. Eat 4 small meals per day or 3 meals and 1-2 small snacks for additional protein 3. Fluids: 64 oz per day, minimum. No carbonation, no caffeine, no calories, no alcohol. 4. Vitamin/minerals: Take daily multivitamin with 200 % daily value for all vitamin/minerals plus VIt D3 3,000 IU, Vit B12 500 mcg, Iron 45 mg and calcium citrate 2082-5905 mg/day . It is okay to use combination vitamin/minerals to reduce pill volume. Page 43 of Your Guide to Surgery 5. Exercise: strive for daily activity - combine strength training and cardio for best workouts. Goal is 30 minutes 5-6x per week. 6. Practice these: Eat in this order protein first, vegetable and fruit second and whole grain carbohydrates last. * Separate eating and drinking by 30 minutes * Chew your food 20-30x per bite * Meals should last 30 minutes Calories per day: 4213-6378 Actions to implement interventions: see assessment Diet History: Breakfast - Premier protein OR scrambled eggs (1x/week) Snack - none Lunch - salad with chicken or leftovers from dinner Snack - algerian yogurt Dinner - beef vegetable soup OR turkey or chicken with vegetables Snack - oatmeal cookie (1) OR SF jello OR SF fudsicile OR skinny pop OR cheese stick Beverages - coffee (1 cup); water/flavored water: 90-100 oz Alcohol - none Vitamins/Supplements - Bariatric Complete Chewable (2 AM and 2 PM) Activity: Activities of Daily Living: Active 25% of the day. 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 Anthropometrics: Height: Last 1 Encounter Ht Readings: Date: Ht: 01/22/2024 155.5 cm (5' 1.23) Weight: Last 1 Encounter Wt Readings: Date: Wt: 04/21/2024 80.7 kg (178 lb) Body mass index is 33. (more content not included)... [facility] 04-22-2024 History of Present illness Narrative [facility] Nutrition Therapy: Virtual Consult - Re-assessment I have communicated my name and active licensure. The patient s identity and physical location were verified at the time of this visit. Either the patient or their legal medical detail representative has been informed of the risks and benefits of -- and alternatives to -- treatment through a remote evaluation and consents to proceed with the evaluation remotely. Nutrition Diagnosis: Altered Gastrointestinal Tract Function, related to, S/P bariatric surgery, as evidenced by surgical and weight history RECOMMENDED MALNUTRITION DIAGNOSIS: NO MALNUTRITION IDENTIFIED NUTRITION CARE PLAN: Nutrition Intervention 04/22/2024: Modify type and amount of food at meals and snacks 1. Protein: Continue to strive for 74 g protein per day. Eat protein first at all meals. Lean meats, low fat/part skim dairy products, peanut butter, eggs, beans. 2. Eat 4 small meals per day or 3 meals and 1-2 small snacks for additional protein 3. Fluids: 64 oz per day, minimum. No carbonation, no caffeine, no calories, no alcohol. 4. Vitamin/minerals: Take daily multivitamin with 200 % daily value for all vitamin/minerals plus VIt D3 3,000 IU, Vit B12 500 mcg, Iron 45 mg and calcium citrate 8030-1292 mg/day . It is okay to use combination vitamin/minerals to reduce pill volume. Page 43 of Your Guide to Surgery 5. Exercise: strive for daily activity - combine strength training and cardio for best workouts. Goal is 30 minutes 5-6x per week. 6. Practice these: Eat in this order protein first, vegetable and fruit second and whole grain carbohydrates last. * Separate eating and drinking by 30 minutes * Chew your food 20-30x per bite * Meals should last 30 minutes Calories: 3060-9007 Nutrition Monitoring & Evaluation: BMI <30 Need for Follow up: 3 months (Call [phone] option 3) PROGRESS: Interval History: 6 months post APC (10/30/23) Net weight loss 53# (231 lbs initial) 17.6 % TWL tracking ahead of average Pre-procedure weight: 216 pounds 7 pounds weight loss since last assessment (185 lbs) Diet recall indicates continued tolerance to Phase 5. Exercise is regular. Having a harder time now it is getting colder. Discussed increasing intensity when able. 9402-7243 calories/day inadequate-adequate intake ~70 grams protein intake/day adequate intake 90-100 oz fluid intake/day adequate intake Taking all recommended vitamin/minerals. Labs: no new labs to review. Resting Metabolic Rate:1361 Energy needs for weight loss 1071-8351 (15-20kcal/kg) Protein needs: 74 grams protein per day (1.2 g/kg IBW kg) Nutrition Intervention 01/22/2024: Modify type and amount of food at meals and snacks 1. Protein: Continue to strive for 74 g protein per day. Eat protein first at all meals. Lean meats, low fat/part skim dairy products, peanut butter, eggs, beans. 2. Eat 4 small meals per day or 3 meals and 1-2 small snacks for additional protein 3. Fluids: 64 oz per day, minimum. No carbonation, no caffeine, no calories, no alcohol. 4. Vitamin/minerals: Take daily multivitamin with 200 % daily value for all vitamin/minerals plus VIt D3 3,000 IU, Vit B12 500 mcg, Iron 45 mg and calcium citrate 9334-3419 mg/day . It is okay to use combination vitamin/minerals to reduce pill volume. Page 43 of Your Guide to Surgery 5. Exercise: strive for daily activity - combine strength training and cardio for best workouts. Goal is 30 minutes 5-6x per week. 6. Practice these: Eat in this order protein first, vegetable and fruit second and whole grain carbohydrates last. * Separate eating and drinking by 30 minutes * Chew your food 20-30x per bite * Meals should last 30 minutes Calories per day: 4263-4548 Actions to implement interventions: see assessment Diet History: Breakfast - Premier protein OR scrambled eggs (1x/week) Snack - none Lunch - salad with chicken or leftovers from dinner Snack - algerian yogurt Dinner - beef vegetable soup OR turkey or chicken with vegetables Snack - oatmeal cookie (1) OR SF jello OR SF fudsicile OR skinny pop OR cheese stick Beverages - coffee (1 cup); water/flavored water: 90-100 oz Alcohol - none Vitamins/Supplements - Bariatric Complete Chewable (2 AM and 2 PM) Activity: Activities of Daily Living: Active 25% of the day. 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 Anthropometrics: Height: Last 1 Encounter Ht Readings: Date: Ht: 01/22/2024 155.5 cm (5' 1.23) Weight: Last 1 Encounter Wt Readings: Date: Wt: 04/21/2024 80.7 kg (178 lb) Body mass index is 33.39 kg/m . Resting Metabolic Rate: 1361 Malnutrition Screening Significant unintentional weight loss? No Eating less than 75% of usual intake for more than 2 weeks? No Potential Signs of Inflammation: no identifiable sources Nutritional status: Education Materials Provided: None this visit READINESS TO LEARN Cognitive ability: Alert and oriented Motivation to learn: Interested Family support: Unable to assess - Family not present Instruction provided to: Patient Patient learns best by: Multiple Methods Factors affecting learning: None Physical limitations affecting learning: None Likelihood of Adherence: Moderate Referred by: Dr. Thomas MNT Billing Type: Re-assess/15 min 1 unit SIGNATURE: Angie Roth RD PATIENT NAME: Melissa Nichols DATE: 04/22/2024 TIME: 8:47 AM PAGER: documented in this encounter [facility] 04-21-2024 Note HNO ID: [id number] Author: ADALI OLIVEROS PSYD Service: ? Author Type: Psychologist Type: Progress Notes Filed: 04/21/2024 09:48 Note Text: GI/Bariatric Endoscopy Clinic Visit Gastroenterology, Hepatology, and Nutrition Department ?[facility] April 21, 2024 Melissa Nichols CPT Code: [id number] Virtual Psychotherapy 38-52 minutes Time:8:59 am to 9:39 am Session #: 3 Virtual Visit I have communicated my name and active licensure. The patient's identity and physical location were verified at the time of this visit. Either the patient or their legal medical detail representative has been informed of the risks and benefits of -- and alternatives to -- treatment through a remote evaluation and consents to proceed with the evaluation remotely. Patient is in the [facility] during our call PsyPACT: I am authorized to practice either (1) interjurisdictional telepsychology under Authority to Practice Interjurisdictional Telepsychology (APIT) or (2) temporary in-person, [id number] practice for up to 30 days a calendar year in each [place] [employer] [place] under Temporary Authorization to Practice (TAP). Collateral Parties Present: none. This is a 53 year old patient pursuing medical/surgical weight management in counseling for support in lifestyle modification and improved coping skills. Subjective: Weight: 178 lbs- loss of 7 since last visit with this provider Non-Scale Progress: clothing fits better- purged closet multiple times; observations from others; improved energy and stamina; Stress/Changes: crunch time for end of the semester and prep for next semester; student issues- more frequent and increased severity- challenges with difficult conversations and carrying it into personal life; walking habit has changed due to limited daylight and weather changes Objective: Discussed the impact of high stress (cortisol) on the body and the implications for weight management. Emphasized the importance of self-care in response to high stress as a precursor to adjustment and weight management strategies. Engaged pt in incorporating self-observation to inform self-care strategies. Patient was seen virtually The patient was well-groomed. She was cooperative with the interview process. The patient had good eye contact. Appearance: Well dressed, well groomed Behavior: Behaves appropriately during the encounter Social Relatedness: Appropriate for age and developmental level Speech: The patient demonstrates appropriate tone, prosody, siria, phonetics, and syntax Mood:Engaging and Alexithymic Affect: Full and appropriate to topic Thought Content: The patient endorses obsessive thinking. Thought Process:The thought process is appropriate for situation Hallucinations: No perceptual disturbances Delusions: No delusional thinking is evident Suicidal Ideas/Plans: The patient denies suicidal ideation, intent or plan Homicidal Ideas/Plans: Patient denies any homicidal ideation, plan or intent at this time. Anxiety: The patient demonstrates obsessive thinking Orientation: Person, Place, Time and Situation Memory: Recent intact, Remote intact, and Immediate intact Concentration: Good Attention: The patient demonstrated full attention and focus throughout the interview Fund of Knowledge: Appropriate for age and developmental level Judgment: Demonstrates age appropriate judgment Insight: demonstrates good insight The patient's motivation for treatment was judged to be excellent. Assessment: Reviewed results from HARMONY-7, PHQ-9 indicating No elevation and informed interventions in this visit. 04/21/24 - PHQ-2 Score: 0 PHQ-9 Score: 1 Patient Data Generalized Anxiety Disorder Scale (HARMONY-7) 12/25/2023 01/23/2024 04/17/2024 HARMONY - 7 SCORES Score 0 0 0 (0-4) minimal anxiety, (5-9) mild anxiety, (10-14) moderate anxiety, (15-21) severe anxiety Patient Health Questionnaire (PHQ-9) 12/25/2023 01/23/2024 04/17/2024 PHQ-9 Score 0 0 1 (0-4) minimal depression, (5-9) mild depression, (10-14) moderate depression, (15-19) moderately severe depression, (20-27) severe depression PROMIS Global Health 10/10/2023 01/15/2024 04/17/2024 PROMIS Global Health - (T-Scores - the mean of general population = 50. Five points is a clinically meaningful difference.) Physical T-Score 42.3 42.3 57.7 57.7 57.7 57.7 Mental T-Score 53.3 53.3 53.3 53.3 53.3 53.3 Current Outpatient Medications Medication Sig omeprazole (PRILOSEC) 40 mg capsule TAKE 1 CAPSULE BY MOUTH TWO TIMES A DAY. OPEN CAPSULE SPRINKLE OVER APPLESAUCE AND TAKE 30 MINUTES BEFORE BREAKFAST AND 30 MINUTES BEFORE DINNER ergocalciferol, vitamin D2, (DRISDOL) 50,000 unit capsule Take 1 capsule by mouth once each week. levothyroxine (SYNTHROID) 100 mcg tablet Take 1 tablet by mouth once daily. Multivitamin capsule Take 1 capsule by mouth once daily. No current facility-administered medications f (more content not included)... [facility] 04-21-2024 History of Present illness Narrative Images from the original note were not included. GI/Bariatric Endoscopy Clinic Visit Gastroenterology, Hepatology, and Nutrition Department ?[facility] April 21, 2024 Melissa Nichols CPT Code: [id number] Virtual Psychotherapy 38-52 minutes Time:8:59 am to 9:39 am Session #: 3 Virtual Visit I have communicated my name and active licensure. The patient's identity and physical location were verified at the time of this visit. Either the patient or their legal medical detail representative has been informed of the risks and benefits of -- and alternatives to -- treatment through a remote evaluation and consents to proceed with the evaluation remotely. Patient is in the state [facility] during our call PsyPACT: I am authorized to practice either (1) interjurisdictional telepsychology under Authority to Practice Interjurisdictional Telepsychology (APIT) or (2) temporary in-person, [id number] practice for up to 30 days a calendar year in each [facility] state under Temporary Authorization to Practice (TAP). Collateral Parties Present: none. This is a 53 year old patient pursuing medical/surgical weight management in counseling for support in lifestyle modification and improved coping skills. Subjective: Weight: 178 lbs- loss of 7 since last visit with this provider Non-Scale Progress: clothing fits better- purged closet multiple times; observations from others; improved energy and stamina; Stress/Changes: crunch time for end of the semester and prep for next semester; student issues- more frequent and increased severity- challenges with difficult conversations and carrying it into personal life; walking habit has changed due to limited daylight and weather changes Objective: Discussed the impact of high stress (cortisol) on the body and the implications for weight management. Emphasized the importance of self-care in response to high stress as a precursor to adjustment and weight management strategies. Engaged pt in incorporating self-observation to inform self-care strategies. Patient was seen virtually The patient was well-groomed. She was cooperative with the interview process. The patient had good eye contact. Appearance: Well dressed, well groomed Behavior: Behaves appropriately during the encounter Social Relatedness: Appropriate for age and developmental level Speech: The patient demonstrates appropriate tone, prosody, siria, phonetics, and syntax Mood:Engaging and Alexithymic Affect: Full and appropriate to topic Thought Content: The patient endorses obsessive thinking. Thought Process:The thought process is appropriate for situation Hallucinations: No perceptual disturbances Delusions: No delusional thinking is evident Suicidal Ideas/Plans: The patient denies suicidal ideation, intent or plan Homicidal Ideas/Plans: Patient denies any homicidal ideation, plan or intent at this time. Anxiety: The patient demonstrates obsessive thinking Orientation: Person, Place, Time and Situation Memory: Recent intact, Remote intact, and Immediate intact Concentration: Good Attention: The patient demonstrated full attention and focus throughout the interview Fund of Knowledge: Appropriate for age and developmental level Judgment: Demonstrates age appropriate judgment Insight: demonstrates good insight The patient's motivation for treatment was judged to be excellent. Assessment: Reviewed results from HARMONY-7, PHQ-9 indicating No elevation and informed interventions in this visit. 04/21/24 - PHQ-2 Score: 0 PHQ-9 Score: 1 Patient Data Generalized Anxiety Disorder Scale (HAMRONY-7) 12/25/2023 01/23/2024 04/17/2024 HARMONY - 7 SCORES Score 0 0 0 (0-4) minimal anxiety, (5-9) mild anxiety, (10-14) moderate anxiety, (15-21) severe anxiety Patient Health Questionnaire (PHQ-9) 12/25/2023 01/23/2024 04/17/2024 PHQ-9 Score 0 0 1 (0-4) minimal depression, (5-9) mild depression, (10-14) moderate depression, (15-19) moderately severe depression, (20-27) severe depression PROMIS Global Health 10/10/2023 01/15/2024 04/17/2024 PROMIS Global Health - (T-Scores - the mean of general population = 50. Five points is a clinically meaningful difference.) Physical T-Score 42.3 42.3 57.7 57.7 57.7 57.7 Mental T-Score 53.3 53.3 53.3 53.3 53.3 53.3 Current Outpatient Medications Medication Sig omeprazole (PRILOSEC) 40 mg capsule TAKE 1 CAPSULE BY MOUTH TWO TIMES A DAY. OPEN CAPSULE SPRINKLE OVER APPLESAUCE AND TAKE 30 MINUTES BEFORE BREAKFAST AND 30 MINUTES BEFORE DINNER ergocalciferol, vitamin D2, (DRISDOL) 50,000 unit capsule Take 1 capsule by mouth once each week. levothyroxine (SYNTHROID) 100 mcg tablet Take 1 tablet by mouth once daily. Multivitamin capsule Take 1 capsule by mouth once daily. No current facility-administered medications for this visit. Medication Changes: No change in medications Diagnoses: Psychological Factors Affecting a Medical Condition class 1 obesity Procedure Status: Post-APC (10/30/23- 6 months) Treatment Goals: Decrease symptoms of stress Increase identification of emotions and emotional regulation Learn healthy tools for emotional release Set healthy boundaries with others Set healthy boundaries with self Increase tools related to communication Increase interest in activities/interest in life Increase healthy lifestyle routines (sleep, exercise, schedule) Develop mindfulness/meditation practice(s) Increase healthy choices with food Increase physical activity Explore and engage in activities that align with interests Plan: 1) The patient identified a goal to pursue until the next visit: Continue current treatment Expand present- moment awareness Implement exercise regimen Practice relaxation techniques/ biofeedback 2) Number of weeks till next appointment: 4 months. Supervising Licensed Psychologist & Billing Provider: Adali Oliveros PSYD documented in this encounter [facility] 02-09-2024 Telephone encounter Note Ordering provider: Holley Date of last office visit: 05/21/2023 Date of next office visit: None. Updated/Validated preferred pharmacy: Yes Patient instructed to contact the pharmacy prior to picking up the medication: Yes (1) Medication name: Levothyroxine Medication dosage: 100 mcg (Micrograms) Monthly quantity needed: 90 How many day supply requestin days Medication route: oral (PO) Medication administration time(s): daily If taking medication PRN, reason for taking medication: N/A If this is a controlled substance do you receive this or any other controlled medication from any other doctor or facility: No Date of last refill (see medication tab): 09/25/2023 [facility] 02-09-2024 Miscellaneous Notes Ordering provider: Holley Date of last office visit: 05/21/2023 Date of next office visit: None. Updated/Validated preferred pharmacy: Yes Patient instructed to contact the pharmacy prior to picking up the medication: Yes (1) Medication name: Levothyroxine Medication dosage: 100 mcg (Micrograms) Monthly quantity needed: 90 How many day supply requestin days Medication route: oral (PO) Medication administration time(s): daily If taking medication PRN, reason for taking medication: N/A If this is a controlled substance do you receive this or any other controlled medication from any other doctor or facility: No Date of last refill (see medication tab): 09/25/2023 documented in this encounter [facility] 01-30-2024 Note HNO ID: [id number] Author: ADALI OLIVEROS PSYD Service: ? Author Type: Psychologist Type: Progress Notes Filed: 01/30/2024 09:58 Note Text: GI/Bariatric Endoscopy Clinic Visit Gastroenterology, Hepatology, and Nutrition Department ?[facility] January 30, 2024 Melissa Nichols CPT Code: [id number] Virtual Psychotherapy 38-52 minutes Time: 9:04 am to 9:54 am Session #: 2 Virtual Visit I have communicated my name and active licensure. The patient's identity and physical location were verified at the time of this visit. Either the patient or their legal medical detail representative has been informed of the risks and benefits of -- and alternatives to -- treatment through a remote evaluation and consents to proceed with the evaluation remotely. Patient is in the [facility] during our call PsyPACT: I am authorized to practice either (1) interjurisdictional telepsychology under Authority to Practice Interjurisdictional Telepsychology (APIT) or (2) temporary in-person, [id number] practice for up to 30 days a calendar year in each [place] [employer] under Temporary Authorization to Practice (TAP). Collateral Parties Present: none. This is a 53 year old patient pursuing medical/surgical weight management in counseling for support in lifestyle modification and improved coping skills. 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 Reviewed the 2 origin points for hunger and the differences in the strategies to support each type. Encouraged pt to identify some of the cues from the body, mind and emotions to help discern the origin point of hunger. Patient was seen virtually The patient was well-groomed. She was cooperative with the interview process. The patient had good eye contact. Appearance: Well dressed, well groomed Behavior: Behaves appropriately during the encounter Social Relatedness: Appropriate for age and developmental level Speech: The patient demonstrates appropriate tone, prosody, siria, phonetics, and syntax Mood:Euthymic and Engaging Affect: Full and appropriate to topic Thought Content: The patient displays thought content appropriate to the interview. Thought Process:The thought process is appropriate for situation Hallucinations: No perceptual disturbances Delusions: No delusional thinking is evident Suicidal Ideas/Plans: The patient denies suicidal ideation, intent or plan Homicidal Ideas/Plans: Patient denies any homicidal ideation, plan or intent at this time. Anxiety: The patient denies and does not appear anxious Orientation: Person, Place, Time and Situation Memory: Recent intact, Remote intact, and Immediate intact Concentration: Good Attention: The patient demonstrated full attention and focus throughout the interview Fund of Knowledge: Appropriate for age and developmental level Judgment: Demonstrates age appropriate judgment Insight: demonstrates good insight The patient's motivation for treatment was judged to be good. Assessment: 01/30/24 - PHQ-2 Score: 0 PHQ-9 Score: 0 Patient Data Generalized Anxiety Disorder Scale (HARMONY-7) 11/05/2023 12/25/2023 01/23/2024 HARMONY - 7 SCORES Score 0 0 0 (0-4) minimal anxiety, (5-9) mild anxiety, (10-14) moderate anxiety, (15-21) severe anxiety Patient Health Questionnaire (PHQ-9) 11/05/2023 12/25/2023 01/23/2024 PHQ-9 Score 0 0 0 (0-4) minimal depression, (5-9) mild depression, (10-14) moderate depression, (15-19) moderately severe depression, (20-27) severe depression PROMIS Global Health 06/03/2023 10/10/2023 01/15/2024 PROMIS Global Health - (T-Scores - the mean of general population = 50. Five points is a clinically meaningful difference.) Physical T-Score 54.1 42.3 42.3 57.7 57.7 Mental T-Score 53.3 53.3 53.3 53.3 53.3 Current Outpatient Medications Medication Sig omeprazole (PRILOSEC) 40 mg capsule TAKE 1 CAPSULE BY MOUTH TWO TIMES A DAY. OPEN CAPSULE SPRINKLE OVER APPLESAUCE AND TAKE 30 MINUTES BEFORE BREAKFAST AND 30 MINUTES BEFORE DINNER sucralfate (CARAFATE) 1 gram tablet Take 1 tablet by mouth four times daily. ergocalciferol, vitamin D2, (DRISDOL) 50,000 unit capsule Take 1 capsule by mouth once each week. levothyroxine (SYNTHROID) 100 mcg tablet Take (more content not included)... [facility] 01-30-2024 History of Present illness Narrative Images from the original note were not included. GI/Bariatric Endoscopy Clinic Visit Gastroenterology, Hepatology, and Nutrition Department ?[facility] ([facility] January 30, 2024 Melissa Nichols CPT Code: [id number] Virtual Psychotherapy 38-52 minutes Time: 9:04 am to 9:54 am Session #: 2 Virtual Visit I have communicated my name and active licensure. The patient's identity and physical location were verified at the time of this visit. Either the patient or their legal medical detail representative has been informed of the risks and benefits of -- and alternatives to -- treatment through a remote evaluation and consents to proceed with the evaluation remotely. Patient is in the state [facility] during our call PsyPACT: I am authorized to practice either (1) interjurisdictional telepsychology under Authority to Practice Interjurisdictional Telepsychology (APIT) or (2) temporary in-person, [id number] practice for up to 30 days a calendar year in each [place] [employer] under Temporary Authorization to Practice (TAP). Collateral Parties Present: none. This is a 53 year old patient pursuing medical/surgical weight management in counseling for support in lifestyle modification and improved coping skills. 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 Reviewed the 2 origin points for hunger and the differences in the strategies to support each type. Encouraged pt to identify some of the cues from the body, mind and emotions to help discern the origin point of hunger. Patient was seen virtually The patient was well-groomed. She was cooperative with the interview process. The patient had good eye contact. Appearance: Well dressed, well groomed Behavior: Behaves appropriately during the encounter Social Relatedness: Appropriate for age and developmental level Speech: The patient demonstrates appropriate tone, prosody, siria, phonetics, and syntax Mood:Euthymic and Engaging Affect: Full and appropriate to topic Thought Content: The patient displays thought content appropriate to the interview. Thought Process:The thought process is appropriate for situation Hallucinations: No perceptual disturbances Delusions: No delusional thinking is evident Suicidal Ideas/Plans: The patient denies suicidal ideation, intent or plan Homicidal Ideas/Plans: Patient denies any homicidal ideation, plan or intent at this time. Anxiety: The patient denies and does not appear anxious Orientation: Person, Place, Time and Situation Memory: Recent intact, Remote intact, and Immediate intact Concentration: Good Attention: The patient demonstrated full attention and focus throughout the interview Fund of Knowledge: Appropriate for age and developmental level Judgment: Demonstrates age appropriate judgment Insight: demonstrates good insight The patient's motivation for treatment was judged to be good. Assessment: 01/30/24 - PHQ-2 Score: 0 PHQ-9 Score: 0 Patient Data Generalized Anxiety Disorder Scale (HARMONY-7) 11/05/2023 12/25/2023 01/23/2024 HARMONY - 7 SCORES Score 0 0 0 (0-4) minimal anxiety, (5-9) mild anxiety, (10-14) moderate anxiety, (15-21) severe anxiety Patient Health Questionnaire (PHQ-9) 11/05/2023 12/25/2023 01/23/2024 PHQ-9 Score 0 0 0 (0-4) minimal depression, (5-9) mild depression, (10-14) moderate depression, (15-19) moderately severe depression, (20-27) severe depression PROMIS Global Health 06/03/2023 10/10/202301/1401/15/2024 PROMIS Global Health - (T-Scores - the mean of general population = 50. Five points is a clinically meaningful difference.) Physical T-Score 54.1 42.3 42.3 57.7 57.7 Mental T-Score 53.3 53.3 53.3 53.3 53.3 Current Outpatient Medications Medication Sig omeprazole (PRILOSEC) 40 mg capsule TAKE 1 CAPSULE BY MOUTH TWO TIMES A DAY. OPEN CAPSULE SPRINKLE OVER APPLESAUCE AND TAKE 30 MINUTES BEFORE BREAKFAST AND 30 MINUTES BEFORE DINNER sucralfate (CARAFATE) 1 gram tablet Take 1 tablet by mouth four times daily. ergocalciferol, vitamin D2, (DRISDOL) 50,000 unit capsule Take 1 capsule by mouth once each week. levothyroxine (SYNTHROID) 100 mcg tablet Take 1 tablet by mouth once daily. Multivitamin capsule Take 1 capsule by mouth once daily. No current facility-administered medications for this visit. Medication Changes: No change in medications Diagnoses: Psychological Factors Affecting a Medical Condition class 1 obesity Procedure Status: Post-APC (10/30/23- 3 months) Treatment Goals: Decrease symptoms of stress Increase identification of emotions and emotional regulation Learn healthy tools for emotional release Set healthy boundaries with others Set healthy boundaries with self Increase tools related to communication Increase interest in activities/interest in life Increase healthy lifestyle routines (sleep, exercise, schedule) Develop mindfulness/meditation practice(s) Increase healthy choices with food Increase physical activity Explore and engage in activities that align with interests Plan: 1) The patient identified a goal to pursue until the next visit: Expand present- moment awareness 2) Number of weeks till next appointment: 3 months. Supervising Licensed Psychologist & Billing Provider: Adali Oliveros PSYD documented in this encounter [facility] 01-22-2024 Instructions Bela Jules MD - 01/22/2024 12:54 PM EDT 1) Please get labs done in 3 months 2) Get liver ultrasound done Call [phone] to schedule 3) See us again in 3-6 months Bela Jules MD January 22, 2024 documented in this encounter [facility] 01-22-[address] - 01/22/2024 12:32 PM EDT Nutrition Intervention 01/22/2024: Modify type and amount of food at meals and snacks 1. Protein: Continue to strive for 74 g protein per day. Eat protein first at all meals. Lean meats, low fat/part skim dairy products, peanut butter, eggs, beans. 2. Eat 4 small meals per day or 3 meals and 1-2 small snacks for additional protein 3. Fluids: 64 oz per day, minimum. No carbonation, no caffeine, no calories, no alcohol. 4. Vitamin/minerals: Take daily multivitamin with 200 % daily value for all vitamin/minerals plus VIt D3 3,000 IU, Vit B12 500 mcg, Iron 45 mg and calcium citrate 3460-1317 mg/day . It is okay to use combination vitamin/minerals to reduce pill volume. Page 43 of Your Guide to Surgery 5. Exercise: strive for daily activity - combine strength training and cardio for best workouts. Goal is 30 minutes 5-6x per week. 6. Practice these: Eat in this order protein first, vegetable and fruit second and whole grain carbohydrates last. * Separate eating and drinking by 30 minutes * Chew your food 20-30x per bite * Meals should last 30 minutes Calories per day: [id number] documented in this encounter [facility] 01-22-2024 History of Present illness Narrative Images from the original note were not included. Demetri Arnold, [address] [facility] [place] [address] GI/Advanced Endoscopy Clinic Visit Gastroenterology, Hepatology, and Nutrition Department ?[facility] ([facility]) ? 01/22/2024 ? The patient encounter is a virtual/telephone visit today, 01/22/2024, in lieu of an office visit due to the current COVID-19 pandemic crisis and need for social distancing. Reason for Visit: Complications of bariatric procedure s/p RYGB, weight regain, obesity class II, s/p APC on 10/30/2023 and weight management Patient is: Established patient Location of Provider: Hospital Location of Patient: Home Consent for virtual care, including informing the patient that insurance will be billed, and that in-person care is available in case of emergencies or as needed otherwise, was discussed at the time of scheduling. Dear Demetri Arnold, DO, ? I had the pleasure of seeing Melissa Nichols in the [facility] GI/Advanced Endoscopy Clinic for weight management s/p APC Prior History: Melissa Nichols is a very pleasant 53 year old, s/p APC on 10/30/2023. She has a known history of obesity class III, vitamin D deficiency, complex endometrial hyperplasia, anemia, degenerative joint disease, arthritis, positive JESSICA (nodules on joints f/u with Bobbin Winder Dr. Woo) and hypothyroid. She is s/p RYGB in 04/2004. 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 The patient then experienced weight regain in 2018 and weighted 231 lbs in 2021. She was last seen by bariatric institute [facility] on 11/27/2023. Interval: - She has been following with [facility] dieticians (last visit 12/09/2023) and was seen to have 9.7% TWL most recently. She is on phase 5 balanced diet and is tolerating that well - No abdominal pain and normal BM, no N and V - She currently weighs 185 lbs - Exercising 5 days a week, 20 mins - 1 hr (walks, jogs, cardio) - Joint pain: better - She was wondering if repeat labs are needed Risk factors: Tobacco use: Never EtOH intake: Socially NSAIDs: No H. Pylori: No Relevant Medications: PPI: Omeprazole 40 mg BID Carafate Has been off it Multivitamin: Yes Recent labs 10/16/2023 Vit B1, D, B12, A, folate: normal Hba1c: 5.2 Iron studies: normal (she has been off iron pills since the procedure) No fibrosis on VCTE LDL: 128, T, cholesterol: 193 Past Medical History: PAST MEDICAL HISTORY No date: Broken ankle Comment: Right ankle no surgery No date: Hypothyroidism No date: Melanoma (HCC) 11/25/2018: Pneumonia Past Surgical History: PAST SURGICAL HISTORY 08/05/2013: DILATION & CURETTAGE DX&/THER NONOBSTETRIC Comment: Polypectomy 10/2023: EGD BARIATRIC 11/05/2023: EGD W/O BRSH SPEC VARICIES INJ 07/22, 12/22, 03/24: ENDOVENOUS LASER, 1ST VEIN 2009: ESSURE Comment: failed per Dr. Linton 2004: GASTRIC BYPASS HX No date: HYSTERECTOMY HX 11/10/2019: KNEE SURGERY HX; Right Comment: ACL/MCL/Miniscus 2010: LIG/TRNSXJ FLP TUBE ABDL/VAG APPR UNI/BI No date: MELANOMA OF SKIN BIOPSY SYN RPT No date: MELANOMA OF SKIN EXCISION SYN RPT 2002, 2003: REPAIR UMBILICAL HERNIA Comment: mesh No date: SKIN BIOPSY HX Medications: Current Outpatient Medications Medication Sig Dispense Refill omeprazole (PRILOSEC) 40 mg capsule TAKE 1 CAPSULE BY MOUTH TWO TIMES A DAY. OPEN CAPSULE SPRINKLE OVER APPLESAUCE AND TAKE 30 MINUTES BEFORE BREAKFAST AND 30 MINUTES BEFORE DINNER 180 capsule 0 sucralfate (CARAFATE) 1 gram tablet Take 1 tablet by mouth four times daily. 360 tablet 0 ergocalciferol, vitamin D2, (DRISDOL) 50,000 unit capsule Take 1 capsule by mouth once each week. levothyroxine (SYNTHROID) 100 mcg tablet Take 1 tablet by mouth once daily. Multivitamin capsule Take 1 capsule by mouth once daily. No current facility-administered medications for this visit. Allergies: ALLERGIES No Known Allergies Family History: No known colon cancer, polyps, IBD, celiac disease, pancreatic disease, or liver disease. FAMILY HISTORY Problem Relation Age of Onset Stroke Mother 42 DVT Mother other (CHF) Mother other (Bipolar Disorder) Mother dx after stroke Alcohol/Drug Father alcohol Diabetes Father Hypertension Father Cancer Father liver and pancreatic Hypertension Sister DVT Sister Rectal Cancer Brother COPD Brother Alcohol abuse Brother Hypertension Maternal Grandmother Hyperlipidemia Maternal Grandmother COPD Maternal Grandmother Diabetes Paternal Grandmother Kidney failure Paternal Grandmother Diabetes Paternal Grandfather No Known Problems Daughter No Known Problems Daughter ? Social History: Social History Tobacco Use Smoking status: Never Passive exposure: Never Smokeless tobacco: Never Vaping Use Vaping status: Never Used Substance Use Topics Alcohol use: No Drug use: No Tobacco: Tobacco Use: Never Alcohol: Alcohol Use: No Illicits: Drug Use: No Review of Systems: Review of Systems Constitutional: no fevers, chills, night sweats, or weight loss Cardiovascular: no chest pain Pulmonary: no shortness of breath Eyes: no visual changes or eye irritation Musculoskeletal: no myalgias or arthralgias Skin: no new or changing skin lesions, rashes or pruritis 12 point ROS otherwise negative. Physical Examination: Vital Signs: Last menstrual period 09/03/2013. There is no height or weight on file to calculate BMI. LMP 09/03/2013 Physical Exam virtual/videocall encounter: Patient reported weight 185 lbs General - Normal, healthy, cooperative, in no acute distress Able to interact verbally by video conference Psych - ORIENTATION: normal to time place, person and situation Mood/Affect: AFFECT AND MOOD: Normal Head/Neuro - Normal size and shape Facial appearance normal Pulmonary - respiratory effort normal Cardiovascular - patient describes extremities normal, warm, no cyanosis,no clubbing and no edema Abdominal - Flat, Visible protrusions or hernias: No Incisions/scars: None, Areas of pain/tenderness: denies Skin - abnormal lesions not visualized Motor - patient seen sitting with Normal appearing strength and coordination PHYSICAL EXAMINATION was not performed during this visit, which was spent entirely on counseling. ? Laboratory Data: Lab Results Component Value Date WBC 3.50 (L) 10/16/2023 WBC 6.05 06/30/2019 WBC 3.2 (L) 12/20/2008 HCT 42.3 10/16/2023 HCT 37.9 06/30/2019 HCT 33.5 (L) 12/20/2008 PLT 275 10/16/2023 PLT 168 06/30/2019 PLT 266 12/20/2008 Lab Results Component Value Date ALB 4.4 10/16/2023 TBILI 0.4 10/16/2023 Lab Results Component Value Date INR 1.1 10/16/2023 No components found for: VITDT, 25VITD, 25OHVITAMIND Lab Results Component Value Date B12 570 10/16/2023 TSH Date Value Ref Range Status 10/13/2009 1.75 0.34 - 5.60 UIU/ML Final Comment: TSH: ULTRASENSITIVE METHOD- LOWER DETECTION LIMIT = 0.01 UIU/ML No components found for: GHBA1C, [id number] WBC (k/uL) Date Value 10/16/2023 3.50 (L) RBC (m/uL) Date Value 10/16/2023 4.37 Hemoglobin (g/dL) Date Value 10/16/2023 13.6 Hematocrit (%) Date Value 10/16/2023 42.3 MCV (fL) Date Value 10/16/2023 96.8 MCH (pg) Date Value 10/16/2023 31.1 MCHC (g/dL) Date Value 10/16/2023 32.2 RDW-CV (%) Date Value 10/16/2023 12.5 Platelet Count (k/uL) Date Value 10/16/2023 275 MPV (fL) Date Value 10/16/2023 9.0 Potassium (mmol/L) Date Value 10/16/2023 4.4 06/30/2019 3.3 Sodium (mmol/L) Date Value 10/16/2023 143 06/30/2019 137 Creatinine (mg/dL) Date Value 10/16/2023 0.84 06/30/2019 0.79 BUN (mg/dL) Date Value 10/16/2023 14 06/30/2019 8 Glucose (mg/dL) Date Value 10/16/2023 92 06/30/2019 138 INR (no units) Date Value 10/16/2023 1.1 TSH (UIU/ML) Date Value 10/13/2009 1.75 Glucose (mg/dL) Date Value 10/16/2023 92 BUN (mg/dL) Date Value 10/16/2023 14 Creatinine (mg/dL) Date Value 10/16/2023 0.84 Sodium (mmol/L) Date Value 10/16/2023 143 Potassium (mmol/L) Date Value 10/16/2023 4.4 Chloride (mmol/L) Date Value 10/16/2023 103 CO2 (mmol/L) Date Value 10/16/2023 29 Protein, Total (g/dL) Date Value 10/16/2023 7.3 Albumin (g/dL) Date Value 10/16/2023 4.4 Calcium, Total (mg/dL) Date Value 10/16/2023 9.7 Alkaline Phosphatase (U/L) Date Value 10/16/2023 90 Bilirubin, Total (mg/dL) Date Value 10/16/2023 0.4 AST (U/L) Date Value 10/16/2023 23 ALT (U/L) Date Value 10/16/2023 31 Glucose (mg/dL) Date Value 10/16/2023 92 06/30/2019 138 Creatinine (mg/dL) Date Value 10/16/2023 0.84 06/30/2019 0.79 Potassium (mmol/L) Date Value 10/16/2023 4.4 06/30/2019 3.3 AST (U/L) Date Value 10/16/2023 23 06/30/2019 21 ALT (U/L) Date Value 10/16/2023 31 06/30/2019 24 Hemoglobin A1C (%) Date Value 10/16/2023 5.2 Cholesterol, Total Date Value 10/16/2023 193 mg/dL 10/13/2009 173 MG/DL HDL Cholesterol Date Value 10/16/2023 50 mg/dL 10/13/2009 61 MG/DL ] LDL Cholesterol Date Value 10/16/2023 128 mg/dL 10/13/2009 92 MG/DL Triglyceride Date Value 10/16/2023 74 mg/dL 10/13/2009 101 MG/DL Albumin/Creat Ratio (mg/g) Date Value 10/16/2023 <27 ] Imaging: No recent imaging Endoscopy: EGD 10/30/2023 Findings: The examined esophagus was normal. The Z line was regular at 35 cm from incisors. The GE junction and hiatus were at 35 cm from incisors. Evidence of a Abisai-en-Y gastric bypass (RYGB) was found. The gastrojejunal anastomosis (GJA) was characterized by normal appearing mucosa. No ulcers, erosion, sutures or zeke. The GJA outlet was dilated 30 mm diameter and was traversed. The gastric pouch extended from 35 cm to 40 cm from the incisors. No gastro-gastric fistula found. The jejunum was normal at 60 cm (both Abisai/alimentary and blind limbs). No food or debris in the blind limb. The small bowel was not dilated and there was no evidence of excess fluid or distal obstruction. The jejuno-jejunal anastomosis was not evaluated. At the conclusion of the diagnostic endoscopy 120 mL of a dilute simethicone solution was instilled in the jejunum. APC REVISION OF GASTROJEJUNAL ANASTOMOSIS Attention was then given to the gastrojejunal anastomosis. The margin of the anastomosis was treated with Argon Plasma Coagulation for revision. There were no mucosal injuries to the proximal esophagus. The examined jejunum was normal. EGD 07/05/2022: Findings: The Z-line was irregular and was found 35 cm from the incisors. Biopsies were taken with a cold forceps for histology. The examined esophagus was otherwise normal. The GE junction and hiatus were at 35 cm from incisors. Evidence of a Abisai-en-Y gastric bypass (RYGB) was found. The gastrojejunal anastomosis (GJA) was characterized by normal appearing mucosa. No ulcers, erosion, sutures or zeke. The GJA outlet was dilated 25 mm diameter and was traversed. The gastric pouch extended from 35 cm to 40 cm from the incisors. No gastro-gastric fistula was found. The jejunum was normal at 60 cm (both Abisai/alimentary and blind limbs). No food or debris in the blind limb. Impression: - Z-line irregular, 35 cm from the incisors. Biopsied. 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 - Normal examined jejunum. Pathology: FINAL DIAGNOSIS A. Esophagus, lower, biopsy: - Squamous and glandular mucosa with increased chronic inflammation. - Negative for intestinal metaplasia and dysplasia. Assessment and Recommendations: ??53 year old female with history as per HPI, obesity class III, vitamin D deficiency, complex endometrial hyperplasia, anemia, degenerative joint disease, arthritis, positive JESSICA (follows rheum.) and hypothyroid presenting to GI/Bariatric Endoscopy clinic for evaluation of complications of bariatric surgery s/p RYGB, s/p APC on 10/30/2023, obesity class II and weight management Weight History: Pre-RYGB weight: 280 lbs (BMI 51.2). Post-RYGB ava: 160 lbs (BMI 29.3). weight: 234 lbs (BMI 42.80) weight: 216 lbs (BMI 41.9) Last visit weight: 213 lbs (BMI 40.25) Todays weight: 217 lbs (BMI 41) Pre APC weight:216 lbs (BMI 39) 1 month post APC weight: 200 lbs (BMI 36.5) Represents 7.4% TBWL Weight today 3 months after APC: 185 lbs (14.35% TBWL) Recommendations: - Continue PPI omeprazole 40 mg BID and multivitamins - Labs to be done 3 months from now (6 months after APC) - VCTE to be done (ordered) - Bariatric Fusion: 4 Complete Chewable Multivitamins per day (2 in the AM, 2 in the PM) - Continue diet and lifestyle modifications - Continue to see and follow up with one of our GI bariatric endoscopy dietitians, Trey Ceron RD or Angie Roth RD as scheduled - Continue to see and follow up with GI bariatric endoscopy psychologist, Dr. Oliveros as scheduled - Continue to increase physical activity as tolerated aim for 200 mins of cardio and now incorporate strength training exercises weekly - RTC in 3 months Bela Jules MD PGY-2 Internal Medicine Problem List Items Addressed This Visit None VIRTUAL VISIT I spent a total of minutes during this real-time, interactive virtual clinical encounter, which was conducted virtually using HIPAA compliant videoconferencing technology. Greater than 50% of the time spent was devoted to counseling and coordinating care including review of records, pertinent lab data and studies, as well as discussing diagnostic evaluation and work up, planned therapeutic interventions and future disposition of care. This includes any additional research needed to obtain further information in formulating the plan of care of this patient. This includes counseling the patient about her disease and diagnosis, specifically: We reviewed coronavirus precautions including avoiding public places, maintaining 6 feet of distance from other persons when in public, no sick contacts, and fastidious handwashing. Thank you for allowing me to participate in the care of your patient. If you have any questions or concerns, please feel free to contact me. STAFF ADDENDUM I saw and evaluated the patient. Discussed with the fellow/resident/SHEN and agree with fellow's findings and plan as documented in the note. Ruddy Thomas MD MSc Advanced Interventional Endoscopy GI/Bariatric Endoscopy [facility] - [facility] Ruddy Thomas MD Msc 01/22/2024 10:08 AM documented in this encounter [facility] 01-22-2024 Note HNO ID: [id number] Author: Micheal THOMAS MD Service: ? Author Type: Physician Type: Progress Notes Filed: 03/02/2024 12:42 Note Text: Demetri Arnold DO [address] [facility] [place] [address] GI/Advanced Endoscopy Clinic Visit Gastroenterology, Hepatology, and Nutrition Department ?[facility] ([facility] ? 01/22/2024 ? The patient encounter is a virtual/telephone visit today, 01/22/2024, in lieu of an office visit due to the current COVID-19 pandemic crisis and need for social distancing. Reason for Visit: Complications of bariatric procedure s/p RYGB, weight regain, obesity class II, s/p APC on 10/30/2023 and weight management Patient is: Established patient Location of Provider: Hospital Location of Patient: Home Consent for virtual care, including informing the patient that insurance will be billed, and that in-person care is available in case of emergencies or as needed otherwise, was discussed at the time of scheduling. Dear Demetri Arnold, , ? I had the pleasure of seeing Melissa Nichols in the [facility] GI/Advanced Endoscopy Clinic for weight management s/p APC Prior History: Melissa Nichols is a very pleasant 53 year old, s/p APC on 10/30/2023. She has a known history of obesity class III, vitamin D deficiency, complex endometrial hyperplasia, anemia, degenerative joint disease, arthritis, positive JESSICA (nodules on joints f/u with Bobbin Winder Dr. Woo) and hypothyroid. She is s/p RYGB in 04/2004. 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 The patient then experienced weight regain in 2018 and weighted 231 lbs in 2021. She was last seen by [facility]ariatric [facility] on 11/27/2023. Interval: - She has been following with [facility] dieticians (last visit 12/09/2023) and was seen to have 9.7% TWL most recently. She is on phase 5 balanced diet and is tolerating that well - No abdominal pain and normal BM, no N and V - She currently weighs 185 lbs - Exercising 5 days a week, 20 mins - 1 hr (walks, jogs, cardio) - Joint pain: better - She was wondering if repeat labs are needed Risk factors: Tobacco use: Never EtOH intake: Socially NSAIDs: No H. Pylori: No Relevant Medications: PPI: Omeprazole 40 mg BID Carafate Has been off it Multivitamin: Yes Recent labs 10/16/2023 Vit B1, D, B12, A, folate: normal Hba1c: 5.2 Iron studies: normal (she has been off iron pills since the procedure) No fibrosis on VCTE LDL: 128, T, cholesterol: 193 Past Medical History: PAST MEDICAL HISTORY No date: Broken ankle Comment: Right ankle no surgery No date: Hypothyroidism No date: Melanoma (HCC) 11/25/2018: Pneumonia Past Surgical History: PAST SURGICAL HISTORY 08/05/2013: DILATION AND CURETTAGE DXAND/THER NONOBSTETRIC Comment: Polypectomy 10/2023: EGD BARIATRIC 11/05/2023: EGD W/O BRSH SPEC VARICIES INJ 07/22, 12/22, 03/24: ENDOVENOUS LASER, 1ST VEIN 2009: ESSURE Comment: failed per Dr. Linton 2005: GASTRIC BYPASS HX No date: HYSTERECTOMY HX 11/10/2019: KNEE SURGERY HX; Right Comment: ACL/MCL/Miniscus 2010: LIG/TRNSXJ FLP TUBE ABDL/VAG APPR UNI/BI No date: MELANOMA OF SKIN BIOPSY SYN RPT No date: MELANOMA OF SKIN EXCISION SYN RPT 2002, 2003: REPAIR UMBILICAL HERNIA Comment: mesh No date: SKIN BIOPSY HX Medications: Current Outpatient Medications Medication Sig Dispense Refill omeprazole (PRILOSEC) 40 mg capsule TAKE 1 CAPSULE BY MOUTH TWO TIMES A DAY. OPEN CAPSULE SPRINKLE OVER APPLESAUCE AND TAKE 30 MINUTES BEFORE BREAKFAST AND 30 MINUTES BEFORE DINNER 180 capsule 0 sucralfate (CARAFATE) 1 gram tablet Take 1 tablet by mouth four times daily. 360 tablet 0 ergocalciferol, vitamin D2, (DRISDOL) 50,000 unit capsule Take 1 capsule by mouth once each week. levothyroxine (SYNTHROID) 100 mcg tablet Take 1 tablet by mouth once daily. Multivitamin capsule Take 1 capsule by mouth once daily. No current facility-administered medications for this visit. Allergies: ALLERGIES No Known Allergies Family History: No known colon cancer, polyps, IBD, celiac disease, pancreatic disease, or liver disease. FAMILY HISTORY Problem Relation Age of Onset Stroke Mother 42 DVT Mother other (CHF) Mother other (Bipolar Disorder) Mother dx after stroke Alcohol/Drug Father alcohol Diabetes Father Hypertension Father Cancer Father liver and pancreatic Hypertension Sister DVT Sister Rectal Cancer Brother COPD Brother Alcohol abuse Brother Hypertension Maternal Grandmother Hyperlipidemia Maternal Grandmother COPD Maternal Grandmother Diabetes Paternal Grandmother Kidney failure Paternal Grandmother Diabetes Paternal Grandfather No Known Problems Daughter No Known Problems Daughter ? Social History: Social History (more content not included)... [facility] 01-22-2024 History of Present illness Narrative [facility] Nutrition Therapy: Virtual Consult - Re-assessment I have communicated my name and active licensure. The patient s identity and physical location were verified at the time of this visit. Either the patient or their legal medical detail representative has been informed of the risks and benefits of -- and alternatives to -- treatment through a remote evaluation and consents to proceed with the evaluation remotely. Nutrition Diagnosis: Altered Gastrointestinal Tract Function, related to, S/P bariatric surgery, as evidenced by surgical and weight history. RECOMMENDED MALNUTRITION DIAGNOSIS: NO MALNUTRITION IDENTIFIED NUTRITION CARE PLAN: Nutrition Intervention 01/22/2024: Modify type and amount of food at meals and snacks 1. Protein: Continue to strive for 74 g protein per day. Eat protein first at all meals. Lean meats, low fat/part skim dairy products, peanut butter, eggs, beans. 2. Eat 4 small meals per day or 3 meals and 1-2 small snacks for additional protein 3. Fluids: 64 oz per day, minimum. No carbonation, no caffeine, no calories, no alcohol. 4. Vitamin/minerals: Take daily multivitamin with 200 % daily value for all vitamin/minerals plus VIt D3 3,000 IU, Vit B12 500 mcg, Iron 45 mg and calcium citrate 6565-1798 mg/day . It is okay to use combination vitamin/minerals to reduce pill volume. Page 43 of Your Guide to Surgery 5. Exercise: strive for daily activity - combine strength training and cardio for best workouts. Goal is 30 minutes 5-6x per week. 6. Practice these: Eat in this order protein first, vegetable and fruit second and whole grain carbohydrates last. * Separate eating and drinking by 30 minutes * Chew your food 20-30x per bite * Meals should last 30 minutes Calories per day: 0712-5075 Nutrition Monitoring & Evaluation: BMI <35 Need for Follow up: 3 months PROGRESS: Interval History: 3 months post APC (10/30/23) Net weight loss 46# ( 231 lbs initial) 14.3 % TWL tracking ahead of average Pre-procedure weight: 216 pounds 10# pounds weight loss since last assessment (195 lbs) Diet recall indicates tolerance to phase 5 diet. 1780-1688 calories/day adequate intake 80-90 g protein intake/day adequate intake 90-100 oz fluid intake/day adequate intake Taking all recommended vitamin/minerals. Labs: no new labs to review Resting Metabolic Rate: 1393 Energy needs for weight loss 4447-6979 (15-20kcal/kg) Protein needs: 74 grams protein per day (1.2 g/kg IBW kg) Nutrition Intervention 12/09/2023: Modify type and amount of food at meals and snacks 1. Continue with phase 4 soft protein foods for additional 2 weeks; -Well-chewed the the consistency of applesauce 2. Protein Goal: 74 grams a day 3. Continue chewable forms of bariatric vitamins -Bariatric Fusion Complete Chewable (2 in AM, 2 in the PM) 4. 64 oz of fluid per day (zero calorie, no carbonation, no caffeine, no alcohol) 5. Physical Activity: continue regular exercise routine. 6. Separate eating and drinking by 30 minutes - Do not advance to Stage 5 until at least 60 days post-procedure and protein goals are consistently being met * Stage 5: focus on meeting protein goals. Introduce appropriate vegetables, fruits, starches as able. Begin with solid proteins and soft cooked vegetables (one at a time), progressing to raw vegetables, and then introducing complex carbohydrates (fruit, whole grains, starchy vegetables) after 1 week of tolerating solid diet. Focus on solid, bulky, high fiber, and low fat foods Calories: 5264-4049 Actions to implement interventions: see assessment Diet History: Breakfast - Protein shake (Premier or Fairlife) OR scrambled eggs and 1/2 guamanian muffin OR zero sugar algerian yogurt with 1/2 banana Snack - none Lunch - salad with chicken breast OR chicken and green beans Snack - cheese stick or algerian yogurt or protein shake Dinner - chicken and green beans OR cauliflower rice with ground turkey and soy sauce with added veggies Snack - SF popsicle OR SF jello with SF whipped cream Beverages - decaf coffee (1 cup); water/flavored water: 90-100 oz Alcohol - none Vitamins/Supplements - Bariatric Complete Chewable (2 AM and 2 PM) Activity: 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 Resting Metabolic Rate: 1448 Malnutrition Screening Significant unintentional weight loss? No Eating less than 75% of usual intake for more than 2 weeks? No Potential Signs of Inflammation: no identifiable sources Nutritional status: Education Materials Provided: None this visit READINESS TO LEARN Cognitive ability: Alert and oriented Motivation to learn: Interested Family support: Unable to assess - Family not present Instruction provided to: Patient Patient learns best by: Multiple Methods Factors affecting learning: None Physical limitations affecting learning: None Likelihood of Adherence: Moderate Referred by: Dr. Thomas MNT Billing Type: Re-assess/15 min 1 unit SIGNATURE: Angie Roth RD PATIENT NAME: Melissa Nichols DATE: 01/22/2024 TIME: 9:18 AM PAGER: documented in this encounter [facility] 01-22-2024 Note HNO ID: [id number] Author: ANGIE ROTH RD Service: ? Author Type: Registered Dietitian Type: Progress Notes Filed: 01/22/2024 12:33 Note Text: [facility] Nutrition Therapy: Virtual Consult - Re-assessment I have communicated my name and active licensure. The patient?s identity and physical location were verified at the time of this visit. Either the patient or their legal medical detail representative has been informed of the risks and benefits of -- and alternatives to -- treatment through a remote evaluation and consents to proceed with the evaluation remotely. Nutrition Diagnosis: Altered Gastrointestinal Tract Function, related to, S/P bariatric surgery, as evidenced by surgical and weight history. RECOMMENDED MALNUTRITION DIAGNOSIS: NO MALNUTRITION IDENTIFIED NUTRITION CARE PLAN: Nutrition Intervention 01/22/2024: Modify type and amount of food at meals and snacks 1. Protein: Continue to strive for 74 g protein per day. Eat protein first at all meals. Lean meats, low fat/part skim dairy products, peanut butter, eggs, beans. 2. Eat 4 small meals per day or 3 meals and 1-2 small snacks for additional protein 3. Fluids: 64 oz per day, minimum. No carbonation, no caffeine, no calories, no alcohol. 4. Vitamin/minerals: Take daily multivitamin with 200 % daily value for all vitamin/minerals plus VIt D3 3,000 IU, Vit B12 500 mcg, Iron 45 mg and calcium citrate 1234-4574 mg/day . It is okay to use combination vitamin/minerals to reduce pill volume. Page 43 of Your Guide to Surgery 5. Exercise: strive for daily activity - combine strength training and cardio for best workouts. Goal is 30 minutes 5-6x per week. 6. Practice these: Eat in this order protein first, vegetable and fruit second and whole grain carbohydrates last. * Separate eating and drinking by 30 minutes * Chew your food 20-30x per bite * Meals should last 30 minutes Calories per day: 2463-8364 Nutrition Monitoring AND Evaluation: BMI <35 Need for Follow up: 3 months PROGRESS: Interval History: 3 months post APC (10/30/23) Net weight loss 46# ( 231 lbs initial) 14.3 % TWL tracking ahead of average Pre-procedure weight: 216 pounds 10# pounds weight loss since last assessment (195 lbs) Diet recall indicates tolerance to phase 5 diet. 9010-3433 calories/day adequate intake 80-90 g protein intake/day adequate intake 90-100 oz fluid intake/day adequate intake Taking all recommended vitamin/minerals. Labs: no new labs to review Resting Metabolic Rate: 1393 Energy needs for weight loss 5228-9053 (15-20kcal/kg) Protein needs: 74 grams protein per day (1.2 g/kg IBW kg) Nutrition Intervention 12/09/2023: Modify type and amount of food at meals and snacks 1. Continue with phase 4 soft protein foods for additional 2 weeks; -Well-chewed the the consistency of applesauce 2. Protein Goal: 74 grams a day 3. Continue chewable forms of bariatric vitamins -Bariatric Fusion Complete Chewable (2 in AM, 2 in the PM) 4. 64 oz of fluid per day (zero calorie, no carbonation, no caffeine, no alcohol) 5. Physical Activity: continue regular exercise routine. 6. Separate eating and drinking by 30 minutes - Do not advance to Stage 5 until at least 60 days post-procedure and protein goals are consistently being met * Stage 5: focus on meeting protein goals. Introduce appropriate vegetables, fruits, starches as able. Begin with solid proteins and soft cooked vegetables (one at a time), progressing to raw vegetables, and then introducing complex carbohydrates (fruit, whole grains, starchy vegetables) after 1 week of tolerating solid diet. Focus on solid, bulky, high fiber, and low fat foods Calories: 2029-7243 Actions to implement interventions: see assessment Diet History: Breakfast - Protein shake (Premier or Fairlife) OR scrambled eggs and 1/2 guamanian muffin OR zero sugar algerian yogurt with 1/2 banana Snack - none Lunch - salad with chicken breast OR chicken and green beans Snack - cheese stick or algerian yogurt or protein shake Dinner - chicken and green beans OR cauliflower rice with ground turkey and soy sauce with added veggies Snack - SF popsicle OR SF jello with SF whipped cream Beverages - decaf coffee (1 cup); water/flavored water: 90-100 oz Alcohol - none Vitamins/Supplements - Bariatric Complete Chewable (2 AM and 2 PM) Activity: 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 Resting Metabolic Rate: 1448 Malnutrition Screening Signific (more content not included)... [facility] 12-18-2023 Telephone encounter Note Signed and faxed. Nalini Fountain RN [facility] 12-18-2023 Miscellaneous Notes Signed and faxed. Nalini Fountain RN Received fax from [facility] requesting mammogram order. Order form to RM to sign. Nalini Fountain RN documented in this encounter [facility] 12-18-2023 Telephone encounter Note Received fax from [facility] requesting mammogram order. Order form to RM to sign. Nalini Fountain RN [facility] 12-16-2023 History of Present illness Narrative Medical Payment Poster offered: Patient declinesTobi Magana is a 53 year old who presents for an annual gynecologic exam without complaints. Postmenopausal: Yes-hysterectomy HRT use: No. Last Pap: 07/27/2012 normal HPV: 07/21/2012 negative History of abnormal pap: Yes Last mammogram: 2022 normal @[facility] History of abnormal mammogram: No Sexually active: somewhat OB History T0 L2 SAB1 IAB0 Ectopic0 Multiple0 Live Births0 Mental Health Clinician History LMP: 09/03/2013, Hysterectomy Age at Menarche: Age at First : Age at Menopause: Mental Health Clinician History Comments: Sexual Activity: Yes; Female, Male; Hysterectomy Contraception: Tubal Ligation PAST MEDICAL HISTORY No date: Broken ankle Comment: Right ankle no surgery No date: Hypothyroidism No date: Melanoma (HCC) 11/25/2018: PneumoniaPAST SURGICAL HISTORY 08/05/2013: DILATION & CURETTAGE DX&/THER NONOBSTETRIC Comment: Polypectomy 2022: EGD W/O BRSH SPEC VARICIES INJ 07/22, 12/22, 03/24: ENDOVENOUS LASER, 1ST VEIN 2010: ESSURE Comment: failed per Dr. Linton 2005: GASTRIC BYPASS HX No date: HYSTERECTOMY HX 11/10/2019: KNEE SURGERY HX; Right Comment: ACL/MCL/Miniscus 2009: LIG/TRNSXJ FLP TUBE ABDL/VAG APPR UNI/BI No date: MELANOMA OF SKIN BIOPSY SYN RPT No date: MELANOMA OF SKIN EXCISION SYN RPT 2002, 2003: REPAIR UMBILICAL HERNIA Comment: mesh No date: SKIN BIOPSY HX FAMILY HISTORY Problem Relation Age of Onset Stroke Mother 42 DVT Mother other (CHF) Mother other (Bipolar Disorder) Mother dx after stroke Alcohol/Drug Father alcohol Diabetes Father Hypertension Father Cancer Father liver and pancreatic Hypertension Sister DVT Sister Rectal Cancer Brother COPD Brother Alcohol abuse Brother Hypertension Maternal Grandmother Hyperlipidemia Maternal Grandmother COPD Maternal Grandmother Diabetes Paternal Grandmother Kidney failure Paternal Grandmother Diabetes Paternal Grandfather No Known Problems Daughter No Known Problems Daughter SOCIAL HISTORY Social History Tobacco Use Smoking status: Never Passive exposure: Never Smokeless tobacco: Never Vaping Use Vaping Use: Never used Substance Use Topics Alcohol use: No Drug use: No REVIEW OF SYSTEMS Abdomen: No abdominal pain, nausea, vomiting, diarrhea, +constipation. No bloating, early satiety, indigestion, or increased flatulence. Bladder: No dysuria, gross hematuria, urinary frequency, urinary urgency, or incontinence Breast: No breast lumps, nipple d/c, overlying skin changes, redness or skin retraction Allergies and current medication updated:Yes EXAM: BP 110/62 Ht 5' 1.228 (1.56m) Wt 197 lb 3.2 oz (89.4kg) LMP 09/03/2013 BMI 36.99 kg/(m^2). GENERAL: pleasant, female in no apparent distress HEENT: Normocephalic, atraumatic, mucus membranes moist, and no lesions NECK: Supple, full range of motion, no adenopathy, and thyroid normal DERMATOLOGY: Normal, without lesions, non-icteric, and non-hirsute BREAST: soft, non-tender, symmetric, no dominant mass, normal nipple-areolar complex, no lymphadenopathy, and no nipple discharge CHEST: Normal inspiratory effort ABDOMEN: soft, non-tender, and no masses PELVIC: external genitalia normal, normal Bartholin's glands, urethra, [place]'s glands, no vulvar lesions, physiologic discharge present, normal appearing perineal body and perianal region, cervix surgically absent BIMANUAL: no adnexal masses, non-tender, and uterus surgically absent RECTOVAGINAL: deferred. NEURO: alert and oriented x3,exam grossly non-focal EXTREMITIES: normal ASSESSMENT/PLAN: 1) Health maintenance: Pap/HPV screening no longer needed Mammogram ordered Nutrition, exercise and routine health maintenance exams reviewed. Calcium/Vitamin D supplementation information provided. Colon cancer screening: up to date with screening 2) Follow up one year or sooner as needed Ana M Sotelo APRN.REPORT CLERK documented in this encounter [facility] 12-09-[address] - 12/09/2023 4:23 PM EDT Nutrition Intervention 12/09/2023: Modify type and amount of food at meals and snacks 1. Continue with phase 4 soft protein foods for additional 2 weeks; -Well-chewed the the consistency of applesauce 2. Protein Goal: 74 grams a day 3. Continue chewable forms of bariatric vitamins -Bariatric Fusion Complete Chewable (2 in AM, 2 in the PM) 4. 64 oz of fluid per day (zero calorie, no carbonation, no caffeine, no alcohol) 5. Physical Activity: continue regular exercise routine. 6. Separate eating and drinking by 30 minutes - Do not advance to Stage 5 until at least 60 days post-procedure and protein goals are consistently being met * Stage 5: focus on meeting protein goals. Introduce appropriate vegetables, fruits, starches as able. Begin with solid proteins and soft cooked vegetables (one at a time), progressing to raw vegetables, and then introducing complex carbohydrates (fruit, whole grains, starchy vegetables) after 1 week of tolerating solid diet. Focus on solid, bulky, high fiber, and low fat foods Calories: 5969-0365 documented in this encounter [facility] 12-09-2023 History of Present illness Narrative [facility] Nutrition Therapy: Virtual Consult - Re-assessment I have communicated my name and active licensure. The patient s identity and physical location were verified at the time of this visit. Either the patient or their legal medical detail representative has been informed of the risks and benefits of -- and alternatives to -- treatment through a remote evaluation and consents to proceed with the evaluation remotely. Nutrition Diagnosis: Altered Gastrointestinal Tract Function, related to, S/P bariatric surgery, as evidenced by surgical and weight history RECOMMENDED MALNUTRITION DIAGNOSIS: NO MALNUTRITION IDENTIFIED NUTRITION CARE PLAN: Nutrition Intervention 12/09/2023: Modify type and amount of food at meals and snacks 1. Continue with phase 4 soft protein foods for additional 2 weeks; -Well-chewed the the consistency of applesauce 2. Protein Goal: 74 grams a day 3. Continue chewable forms of bariatric vitamins -Bariatric Fusion Complete Chewable (2 in AM, 2 in the PM) 4. 64 oz of fluid per day (zero calorie, no carbonation, no caffeine, no alcohol) 5. Physical Activity: continue regular exercise routine. 6. Separate eating and drinking by 30 minutes - Do not advance to Stage 5 until at least 60 days post-procedure and protein goals are consistently being met * Stage 5: focus on meeting protein goals. Introduce appropriate vegetables, fruits, starches as able. Begin with solid proteins and soft cooked vegetables (one at a time), progressing to raw vegetables, and then introducing complex carbohydrates (fruit, whole grains, starchy vegetables) after 1 week of tolerating solid diet. Focus on solid, bulky, high fiber, and low fat foods Calories: 5872-9034 Nutrition Monitoring & Evaluation: BMI <35 Need for Follow up: as already scheduled (Call [phone] option 3) PROGRESS: Interval History: 5 weeks post APC (10/30/23) Net weight loss 36# ( 231# lbs initial) 9.7 % TWL tracking ahead of average Pre-procedure weight: 216 pounds 14 pounds weight loss since last assessment (209 lbs) Diet recall indicates continued tolerance to Phase 3. Reviewed Phase 4 diet. Exercise continues to be regular with mix of strength and cardio. 530 calories/day inadequate intake 90 g protein intake/day adequate intake 90-100 oz fluid intake/day adequate intake Taking all recommended vitamin/minerals. Labs: no new labs to review Resting Metabolic Rate:Resting Metabolic Rate: 1451 Energy needs for weight loss 3270-4839 (15-20kcal/kg) Protein needs: 74 grams protein per day (1.2 g/kg IBW kg) Nutrition Intervention 11/06/2023: Modify type and amount of food at meals and snacks 1. Continue with phase 3 protein shakes for additional 4 weeks; -Protein shakes: 150-200 calories, 15-30 grams of protein, <5-10 grams of sugar 2. Protein Goal: 74 grams a day 3. Begin chewable forms of bariatric vitamins -Bariatric Fusion Complete Chewable (2 in AM, 2 in the PM) 4. 64 oz of fluid per day (zero calorie, no carbonation, no caffeine, no alcohol) 5. Physical Activity: yoga sehn with light weights and bands: daily 20-30 minutes; walking do mile 6. Separate eating and drinking by 30 minutes - Do not advance to Stage 4 until at least 45 days post-op and protein goals are consistently being met * Stage 4: focus on meeting protein goals through soft, moist protein foods. 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 Anthropometrics: Height: Last 1 Encounter Ht Readings: Date: Ht: 11/27/2023 157.6 cm (5' 2.05) Weight: Last 1 Encounter Wt Readings: Date: Wt: 11/27/2023 90.7 kg (200 lb) Body mass index is 35.61 kg/m . Resting Metabolic Rate: 1474 Malnutrition Screening Significant unintentional weight loss? No Eating less than 75% of usual intake for more than 2 weeks? No Potential Signs of Inflammation: no identifiable sources Nutritional status: Education Materials Provided: None this visit READINESS TO LEARN Cognitive ability: Alert and oriented Motivation to learn: Interested Family support: Unable to assess - Family not present Instruction provided to: Patient Patient learns best by: Multiple Methods Factors affecting learning: None Physical limitations affecting learning: None Likelihood of Adherence: Moderate Referred by: Dr. Thomas MNT Billing Type: Re-assess/15 min 1 unit SIGNATURE: Angie Roth RD PATIENT NAME: Melissa Nichols DATE: 12/09/2023 TIME: 10:52 AM PAGER: documented in this encounter [facility] 11-27-2023 History of Present illness Narrative Images from the original note were not included. Demetri Arnold DO [address] [facility] [place] [id number] GI/Bariatric Endoscopy Clinic Visit Gastroenterology, Hepatology, and Nutrition Department ?[facility] ? 11/27/2023 ? The patient encounter is a virtual/telephone visit today, 11/27/2023, in lieu of an office visit due to the current COVID-19 pandemic crisis and need for social distancing. Reason for Visit: Complications of bariatric procedure s/p RYGB, weight regain, obesity class II, 1 month post APC and weight management Patient is: Established patient Location of Provider: Hospital Location of Patient: Home Consent for virtual care, including informing the patient that insurance will be billed, and that in-person care is available in case of emergencies or as needed otherwise, was discussed at the time of scheduling. Dear Demetri Arnold DO, ? I had the pleasure of seeing Melissa Nichols in the [facility] GI/Bariatric Endoscopy Clinic for Complications of bariatric procedure s/p RYGB, weight regain, 1 month post APC and weight management Interval: Patient presents now 1 month post APC, doing well. Weight at 200 lbs, lost 7.4% TBWL. Reports improved joint pains. Denies any red flag symptoms. Tolerating PO liquid diet protocol but expresses misses chewing discussed freezing protein shakes or mixing up flavors, jello, popsicles. She is taking PPI oc omeprazole and carafate as prescribed. She is taking 1 tablet bariatric each morning, discussed the bariatric fusion should be taken 2 tablets BID and after liquid diet phase she can take all in one capsule daily. Prior History/ note from initial VV 03/06/2022, Maranda Castro REPORT CLERK: Melissa Nichols has a history of obesity since childhood. Comorbidities are: obesity class III, vitamin D deficiency, complex endometrial hyperplasia, anemia, degenerative joint disease, arthritis, positive JESSICA (nodules on joints f/u with Bobbin Winder Dr. Woo) and hypothyroid. Melissa Nichols underwent RYGB at [place] with Dr. Read on 04/2004. Barretts Esophagus prior to RYGB. no complications post RYGB. She denies having any reflux or heartburn. 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 The patient then experienced weight regain in 2019 and now weighs 231 lbs. The patient is here today complaining of the ability to eat larger portions and has satiety that does not last. Weight gain/regain and Obesity disease: The patient reports could eat several high caloric meals and beverages per day despite not feeling very hungry. Also not feeling satiety or full after eating several meals. Reports craving to eat throughout the day. This has resulted in weight gain/regain and worsening of obesity. Patient has tried to control the diet and be able to lose weight up to 20 lbs. Unfortunately, the patient would subsequently experience rebound weight regain following lifestyle modification interventions (diet + exercise). Patient has tried increasing physical activity or exercise, Weight Watcher, Fast metabolism diet (eat 4-6 small meals a day), Keto diet, high protein/low carb sugar diets, Intermittent fasting, Meal replacement plan, multiple dietitian healthy diets (low carbs, low fat, high protein diets), behavioral therapy and baritastic phone shen. Patient has tried medications (Topamax, Phen fen) and is following obesity medicine. She is not interested in revisional bariatric surgery. Patient exercises 4 times a week for 20-30 min every time: walking, chair yoga, treadmil, bike.Unfortunately, despite all the above interventions, patient's weight problem has started to severely affect patient's lifestyle and health. Specifically, patient has been experiencing ACL/MCL Repair from torn meniscus, also broke her ankle in 2021 which is exacerbated after walking 0.5-1 miles and this is now impairing the patient from been more physically active. Melissa Nichols was seen by primary care, orthopedics, bariatric specialities who recommended to lose weight and weight loss interventions. 24 hrs Diet recall:Badge Following diet protocol Wakes up to eat: no Current Exercise Activity: Elliptical and rowing machine for 20 mins 3x a week not as active limited from back pain stretching Weight History: Pre-RYGB weight: 280 lbs (BMI 51.2). Post-RYGB ava: 160 lbs (BMI 29.3). Ht 157.6 cm (5' 2.05) Wt 90.7 kg (200 lb) LMP 09/03/2013 BMI 36.52 kg/m LMP 09/03/2013 Goal weight BMI < 27: 162.3 Goal weight BMI < 30: 180.3 Last 5 Encounter Wt Readings: Date: Wt: 02/25/2022 106.6 kg (235 lb) 02/15/2022 106.6 kg (235 lb) 12/07/2021 108 kg (238 lb) 12/06/2021 108.4 kg (239 lb) 12/04/2020 101.6 kg (224 lb) Risk factors: Tobacco use: No EtOH intake: Rare social NSAIDs: No H. Pylori: No (EGD 2003 prior showed barretts repeat EGD normal) FH:No, brother recently diagnosed with rectal cancer and father with liver and pancreatic ca PH: No Relevant Medications: Phen fin in the past Topamax SE of nausea, not feeling well Vitamins/Minerals Supplements: - Vitamin D3 - Calcium 1200 mg - Multivitamin bariatric fusion not taking recommended amount Relevant Bariatric Procedures/Surgeries Bariatric Surgeon: Jacek at [facility] Bariatric Surgery: 2004 Abisai-en-Y Gastric Bypass (RYGB APC on 10/30/23 Past Medical History: PAST MEDICAL HISTORY Diagnosis Date Broken ankle Right ankle no surgery Hypothyroidism Melanoma (HCC) Pneumonia 11/25/2018 Past Surgical History: PAST SURGICAL HISTORY Procedure Laterality Date DILATION & CURETTAGE DX&/THER NONOBSTETRIC 08/05/2013 [facility]IC[facility] INJ 2022 ENDOVENOUS LASER, 1ST VEIN 07/22, 12/22, 03/24 [address]SS[address] Linton GASTRIC BYPASS HX 2005 HYSTERECTOMY HX KNEE SURGERY HX Right 11/10/2019 ACL/MCL/Miniscus LIG/TRNSXJ FLP TUBE ABDL/VAG APPR UNI/BI 2009 MELANOMA OF SKIN BIOPSY SYN RPT MELANOMA OF SKIN EXCISION SYN RPT REPAIR UMBILICAL HERNIA 2002, 2003 mesh SKIN BIOPSY HX Medications: Current Outpatient Medications Medication Sig Dispense Refill sucralfate (CARAFATE) 1 gram tablet Take 1 tablet by mouth four times daily. 360 tablet 0 acetaminophen (TYLENOL) 500 mg/15 mL liqd Take 15 mL by mouth every 6 hours as needed for pain. Do not exceed 5 doses in 24 hours. 1000 mL 0 omeprazole (PRILOSEC) 40 mg capsule Take 1 capsule by mouth two times a day. Open capsule sprinkle over applesauce and take 30 minutes before breakfast and 30 minutes before dinner 180 capsule 0 ondansetron orally disintegrating (ZOFRAN ODT) 8 mg disintegrating tablet Take 1 tablet by mouth every 8 hours as needed for nausea/vomiting. 20 tablet 0 scopolamine (TRANSDERM-SCOP) patch 1.5 mg/72 hr (delivers 1 mg over 3 days) Apply 1 Patch as directed every 72 hours. 4 Patch 0 calcium citrate/vitamin D3 (CALCIUM CITRATE + D ORAL) Take 1,200 mg by mouth once daily. hydroxychloroquine (PLAQUENIL) 200 mg tablet Take 200 mg by mouth once daily. ergocalciferol, vitamin D2, (DRISDOL) 50,000 unit capsule Take 1 capsule by mouth once each week. ferrous sulfate 325 mg (65 mg iron) tablet Take 65 mg by mouth twice daily. levothyroxine (SYNTHROID) 100 mcg tablet Take 1 tablet by mouth once daily. Multivitamin capsule Take 1 capsule by mouth once daily. No current facility-administered medications for this visit. Allergies: ALLERGIES No Known Allergies Family History: No known colon cancer, polyps, IBD, celiac disease, pancreatic disease, or liver disease. FAMILY HISTORY Problem Relation Age of Onset Stroke Mother 42 DVT Mother other (CHF) Mother other (Bipolar Disorder) Mother dx after stroke Alcohol/Drug Father alcohol Diabetes Father Hypertension Father Cancer Father liver and pancreatic Hypertension Sister DVT Sister Rectal Cancer Brother COPD Brother Alcohol abuse Brother Hypertension Maternal Grandmother Hyperlipidemia Maternal Grandmother COPD Maternal Grandmother Diabetes Paternal Grandmother Kidney failure Paternal Grandmother Diabetes Paternal Grandfather No Known Problems Daughter No Known Problems Daughter ? Social History: Social History Tobacco Use Smoking status: Never Passive exposure: Never Smokeless tobacco: Never Vaping Use Vaping Use: Never used Substance Use Topics Alcohol use: No Drug use: No Tobacco: Tobacco Use: Never Alcohol: Alcohol Use: No Illicits: Drug Use: No Review of Systems: Review of Systems Constitutional: Negative for chills and fever. Respiratory: Negative for cough. Cardiovascular: Negative for chest pain. Gastrointestinal: Negative for abdominal pain, blood in stool, constipation, diarrhea, nausea and vomiting. Constitutional: no fevers, chills, night sweats, weight loss Cardiovascular: no chest pain Pulmonary: no shortness of breath Eyes: no visual changes or eye irritation Musculoskeletal: lower back pain Skin: no new or changing skin lesions, rashes or pruritis 12 point ROS otherwise negative. Physical Examination: Ht 157.6 cm (5' 2.05) Wt 90.7 kg (200 lb) LMP 09/03/2013 BMI 36.52 kg/m Physical Exam virtual/videocall encounter: Patient reported height 5'2 and weight 200 lbs LMP 09/03/2013 General - Normal, obese, cooperative, in no acute distress Able to interact verbally by video conference Psych - ORIENTATION: normal to time place, person and situation Mood/Affect: AFFECT AND MOOD: Normal Head/Neuro - Normal size and shape Facial appearance normal Pulmonary - respiratory effort normal Cardiovascular - patient describes extremities normal, warm, no cyanosis,no clubbing and no edema Abdominal - Areas of pain/tenderness: denies Skin - abnormal lesions not visualized Motor - patient seen sitting with Normal appearing strength and coordination ? Laboratory Data: Lab Results Component Value Date B12 [id number] 10/16/2023 TSH Date Value Ref Range Status 10/13/2009 1.75 0.34 - 5.60 UIU/ML Final Comment: TSH: ULTRASENSITIVE METHOD- LOWER DETECTION LIMIT = 0.01 UIU/ML WBC (k/uL) Date Value 10/16/2023 3.50 (L) RBC (m/uL) Date Value 10/16/2023 4.37 Hemoglobin (g/dL) Date Value 10/16/2023 13.6 Hematocrit (%) Date Value 10/16/2023 42.3 MCV (fL) Date Value 10/16/2023 96.8 MCH (pg) Date Value 10/16/2023 31.1 MCHC (g/dL) Date Value 10/16/2023 32.2 RDW-CV (%) Date Value 10/16/2023 12.5 Platelet Count (k/uL) Date Value 10/16/2023 275 MPV (fL) Date Value 10/16/2023 9.0 Potassium (mmol/L) Date Value 10/16/2023 4.4 06/30/2019 3.3 Sodium (mmol/L) Date Value 10/16/2023 143 06/30/2019 137 Creatinine (mg/dL) Date Value 10/16/2023 0.84 06/30/2019 0.79 BUN (mg/dL) Date Value 10/16/2023 14 06/30/2019 8 Glucose (mg/dL) Date Value 10/16/2023 92 06/30/2019 138 INR (no units) Date Value 10/16/2023 1.1 TSH (UIU/ML) Date Value 10/13/2009 1.75 Glucose (mg/dL) Date Value 10/16/2023 92 BUN (mg/dL) Date Value 10/16/2023 14 Creatinine (mg/dL) Date Value 10/16/2023 0.84 Sodium (mmol/L) Date Value 10/16/2023 143 Potassium (mmol/L) Date Value 10/16/2023 4.4 Chloride (mmol/L) Date Value 10/16/2023 103 CO2 (mmol/L) Date Value 10/16/2023 29 Protein, Total (g/dL) Date Value 10/16/2023 7.3 Albumin (g/dL) Date Value 10/16/2023 4.4 Calcium, Total (mg/dL) Date Value 10/16/2023 9.7 Alkaline Phosphatase (U/L) Date Value 10/16/2023 90 Bilirubin, Total (mg/dL) Date Value 10/16/2023 0.4 AST (U/L) Date Value 10/16/2023 23 ALT (U/L) Date Value 10/16/2023 31 Glucose (mg/dL) Date Value 10/16/2023 92 06/30/2019 138 Creatinine (mg/dL) Date Value 10/16/2023 0.84 06/30/2019 0.79 Potassium (mmol/L) Date Value 10/16/2023 4.4 06/30/2019 3.3 AST (U/L) Date Value 10/16/2023 23 06/30/2019 21 ALT (U/L) Date Value 10/16/2023 31 06/30/2019 24 Hemoglobin A1C (%) Date Value 10/16/2023 5.2 Cholesterol, Total Date Value 10/16/2023 193 mg/dL 10/13/2009 173 MG/DL HDL Cholesterol Date Value 10/16/2023 50 mg/dL 10/13/2009 61 MG/DL ] LDL Cholesterol Date Value 10/16/2023 128 mg/dL 10/13/2009 92 MG/DL Triglyceride Date Value 10/16/2023 74 mg/dL 10/13/2009 101 MG/DL Albumin/Creat Ratio (mg/g) Date Value 10/16/2023 <27 Imagin03/25/2023 Fibroscan Please refer to get images report for individual readings Number of readings: 10 IQR %: 16% E (kpa): 5.7 CAP: 319 Impression The reading was adequate. FS=5.7 kPA. The CAP score is 319 and corresponds to steatosis grade of S3. 03/27/2007 CT ABD WO CONTRAST FINDINGS: The liver and spleen are normal as are both kidneys. There are postsurgical changes in the upper abdomen consistent with previous gastric bypass surgery. It should however be noted that there is a paucity of contrast in the region of the stomach and upper abdomen. I am suspicious of some periaortic adenopathy but this could also represent bowel In the lower cuts located at midline is a small ventral hernia and soft tissue density in the anterior abdomen which I believe is related to the surgery if there has been a midline incision. IMPRESSION: Postoperative changes with small ventral hernia and soft tissue prominence in the midline 2. Possible periaortic adenopathy. 3. I would doubt that the findings account for the right upper quadrant mass that is clinically suspected 12/08/2006 US RUQ ABD IMPRESSION: A single focus of comet-tail artifact originating from the nondependent gallbladder wall suggesting adenomyomatosis. Endoscopy: EGD 07/05/2022: Findings: The Z-line was irregular and was found 35 cm from the incisors. Biopsies were taken with a cold forceps for histology. The examined esophagus was otherwise normal. The GE junction and hiatus were at 35 cm from incisors. Evidence of a Abisai-en-Y gastric bypass (RYGB) was found. The gastrojejunal anastomosis (GJA) was characterized by normal appearing mucosa. No ulcers, erosion, sutures or zeke. The GJA outlet was dilated 25 mm diameter and was traversed. The gastric pouch extended from 35 cm to 40 cm from the incisors. No gastro-gastric fistula was found. The jejunum was normal at 60 cm (both Abisai/alimentary and blind limbs). No food or debris in the blind limb. Impression: - Z-line irregular, 35 cm from the incisors. Biopsied. 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 - Normal examined jejunum. Pathology: FINAL DIAGNOSIS A. Esophagus, lower, biopsy: - Squamous and glandular mucosa with increased chronic inflammation. - Negative for intestinal metaplasia and dysplasia. Assessment and Recommendations: ??53 year old female with history as per HPI, obesity class III, vitamin D deficiency, complex endometrial hyperplasia, anemia, degenerative joint disease, arthritis, positive JESSICA (follows rheum.) and hypothyroid presenting to GI/Bariatric Endoscopy clinic for evaluation of complications of bariatric surgery s/p RYGB, 1 month post APC, obesity class II and weight management Interval: Patient presents now 1 month post APC, doing well. Weight at 200 lbs, lost 7.4% TBWL. Reports improved joint pains. Denies any red flag symptoms. Tolerating PO liquid diet protocol but expresses misses chewing discussed freezing protein shakes or mixing up flavors, jello, popsicles. She is taking PPI oc omeprazole and carafate as prescribed. She is taking 1 tablet bariatric each morning, discussed the bariatric fusion should be taken 2 tablets BID and after liquid diet phase she can take all in one capsule daily. Weight History: Pre-RYGB weight: 280 lbs (BMI 51.2). Post-RYGB ava: 160 lbs (BMI 29.3). weight: 234 lbs (BMI 42.80) weight: 216 lbs (BMI 41.9) Last visit weight: 213 lbs (BMI 40.25) Todays weight: 217 lbs (BMI 41) Pre APC weight:216 lbs (BMI 39) 1 month post APC weight:200 lbs (BMI 36.5) Represents 7.4% TBWL Recommendations: - Continue to follow diet protocol in guidelines - Continue PPI omeprazole oc 40 mg BID - Can stop carafate after 6 weeks post APC - Bariatric Fusion: 4 Complete Chewable Multivitamins per day (2 in the AM, 2 in the PM)[email or web address] can switch to complete capsule after liquid diet phase - Continue diet and lifestyle modifications - Continue to see and follow up with one of our GI bariatric endoscopy dietitians, Trey Ceron RD or Angie Roth RD as scheduled - Continue to see and follow up with GI bariatric endoscopy psychologist, Dr. Oliveros as scheduled - Continue to increase physical activity as tolerated aim for 200 mins of cardio and now incorporate strength training exercises weekly - RTC as scheduled for follow up of medically supervised weight management program VIRTUAL VISIT I spent a total of 30 minutes during this real-time, interactive virtual clinical encounter, which was conducted virtually using HIPAA compliant videoconferencing technology. Greater than 50% of the time spent was devoted to counseling and coordinating care including review of records, pertinent lab data and studies, as well as discussing diagnostic evaluation and work up, planned therapeutic interventions and future disposition of care. This includes any additional research needed to obtain further information in formulating the plan of care of this patient. This includes counseling the patient about her disease and diagnosis, specifically: complications of bariatric surgery, weight gain, obesity class III and weight management We reviewed coronavirus precautions including avoiding public places, maintaining 6 feet of distance from other persons when in public, no sick contacts, and fastidious handwashing. Thank you for allowing me to participate in the care of your patient. If you have any questions or concerns, please feel free to contact me. Maranda Castro APRN.CNP GI Bariatric Endoscopy 11/27/2023 11:34 AM documented in this encounter [facility] 11-06-[address] - 11/06/2023 3:07 PM EDT Nutrition Intervention 11/06/2023: Modify type and amount of food at meals and snacks 1. Continue with phase 3 protein shakes for additional 4 weeks; -Protein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 complications. Requesting Provider: Procedure: Pre-Anesthesia Assessment: - Prior to the procedure, a History and Physical was performed, and patient medications, allergies and sensitivities were reviewed. The patient's tolerance of previous anesthesia was reviewed. - ASA Grade Assessment: II - A patient with mild systemic disease. After obtaining informed consent, the endoscope was passed under direct vision. Throughout the procedure, the patient's blood pressure, pulse, and oxygen saturations were monitored continuously. The Endoscope was introduced through the mouth, and advanced to the jejunum. The upper GI endoscopy was accomplished without difficulty. The patient tolerated the procedure well. Moderate Sedation: MAC anesthesia was administered by the anesthesia team. MAC anesthesia was administered by the anesthesia team. Findings: The examined esophagus was normal. The Z line was regular at 35 cm from incisors. The GE junction and hiatus were at 35 cm from incisors. Evidence of a Abisai-en-Y gastric bypass (RYGB) was found. The gastrojejunal anastomosis (GJA) was characterized by normal appearing mucosa. No ulcers, erosion, sutures or zeke. The GJA outlet was dilated 30 mm diameter and was traversed. The gastric pouch extended from 35 cm to 40 cm from the incisors. No gastro-gastric fistula found. The jejunum was normal at 60 cm (both Abisai/alimentary and blind limbs). No food or debris in the blind limb. The small bowel was not dilated and there was no evidence of excess fluid or distal obstruction. The jejuno-jejunal anastomosis was not evaluated. At the conclusion of the diagnostic endoscopy 120 mL of a dilute simethicone solution was instilled in the jejunum. APC REVISION OF GASTROJEJUNAL ANASTOMOSIS Attention was then given to the gastrojejunal anastomosis. The margin of the anastomosis was treated with Argon Plasma Coagulation for revision. There were no mucosal injuries to the proximal esophagus. The examined jejunum was normal. Impression: - Normal examined jejunum. - No specimens collected. Estimated Blood Loss: Estimated blood loss: none. Recommendation: - Observe patient in Endoscopy unit for 2 hours and if doing well, ok to discharge home. - Patient to receive 2 liters of LR IV fluid while in post-op recovery area. - Please avoid all oral intake today until the this evening (okay for tylenol and crushed meds) - Tylenol for pain liquid (325 mg) as needed every 6-8 hrs. - Tomorrow morning please start omeprazole 40 mg open capsule mix with water, twice per day (30 min before breakfast and 30 min before dinner) - For nausea control, you have been given a scopolamine patch (please keep it in place). In addition, please take as needed zofran 8 mg desintegrating table every 8hrs. - Start taking Carafate tomorrow 1 gr liquid four times per day (ok to take tablet form and crashed/dissolve with water) - This evening post-procedure may start sips of water (2oz every hour) as tolerated. - Liquid protein diet for 45 days as per protocol. Outpatient diet guidelines printed and provided. - All medications to be converted to liquid and crushable form for 6 weeks at discharge. - No (more content not included)... [facility] 10-30-2023 Nurse Note PRE OP LEARNING ASSESSMENT PROCEDURE/SURGERY: GI PROCEDURES: EGD READINESS TO LEARN COGNITIVE ABILITY: Alert and oriented MOTIVATION TO LEARN: Interested FAMILY SUPPORT: High - Very involved in pt care PATIENT LEARNS BEST BY: Individual Instruction FACTORS AFFECTING LEARNING: None PHYSICAL LIMITATIONS AFFECTING LEARNING: None Electronically Signed By: Holly Brown RN In Department: GASTROENTEROLOGY [facility] 10-30-2023 History and physical note HISTORY AND PHYSICAL Melissa Nichols presents for endoscopic procedure Current history and physical on file: No Is a new History and Physical required for today's visit? Yes Indication for procedure: Please see procedure's ordering provider for details (encounter/endoscopy order details). PROCEDURE(S) SCHEDULED FOR: Please see consent form for details of endoscopic procedure. BASELINE BEHAVIOR: Calm BASELINE ORIENTATION: Alert and oriented x3 All medications and allergies reviewed: Yes Skin Assessment: Warm dry mucus membranes pink Airway/Respiratory Assessment: Airway: visualization of the uvula- Yes Mouth: opening greater than 2 fingerbreadths- Yes Neck: full range of motion- Yes Breath sounds clear/equal- Yes Cardiac Assessment: Regular rate and rhythm without murmur Abdominal Assessment: Abdomen soft, non-tender, no masses or organomegaly. Sedation Plan: Anesthesia (MAC or GA) Consent: Obtained, please see consent form for details. 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 Ruddy Thomas MD MSc Advanced Interventional Endoscopy GI/Bariatric Endoscopy [facility] Work Phone: 10-30-2023 History and physical note HISTORY AND PHYSICAL Melissa Nichols presents for endoscopic procedure Current history and physical on file: No Is a new History and Physical required for today's visit? Yes Indication for procedure: Please see procedure's ordering provider for details (encounter/endoscopy order details). PROCEDURE(S) SCHEDULED FOR: Please see consent form for details of endoscopic procedure. BASELINE BEHAVIOR: Calm BASELINE ORIENTATION: Alert and oriented x3 All medications and allergies reviewed: Yes Skin Assessment: Warm dry mucus membranes pink Airway/Respiratory Assessment: Airway: visualization of the uvula- Yes Mouth: opening greater than 2 fingerbreadths- Yes Neck: full range of motion- Yes Breath sounds clear/equal- Yes Cardiac Assessment: Regular rate and rhythm without murmur Abdominal Assessment: Abdomen soft, non-tender, no masses or organomegaly. Sedation Plan: Anesthesia (MAC or GA) Consent: Obtained, please see consent form for details. 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 Ruddy Thomas MD MSc Advanced Interventional Endoscopy GI/Bariatric Endoscopy [facility] documented in this encounter [facility] 10-23-2023 Nurse Note GI Pre-Procedure Spoke with patient: Yes Confirmed date scheduled and patient report time: Yes Procedure Planned:Esophagogastroduodenoscop y(EGD) with or without biopies based on clinical findings, removal of polyps or lesions Is the patient on blood thinners? No Procedure Instructions given to patient: Yes, and they verbalized their understanding of instructions given Patient instructed to take prescribed preparation prior to procedure: N/A Patient instructed to have family/friend present for procedure transport home:Patient was told that if they do not have a responsible adult accompany them to their procedure; and remain in the endoscopy area until they are discharged; that their procedure cannot be done with sedation or anesthesia and may be cancelled. They verbalized their understanding and agree to have a responsible adult accompany the patient to their procedure and remain in the endoscopy area. Any barriers to Patient learning: Patient responded appropriately on phone. Type of instruction given: Verbal by telephone contact. Written instructions sent via EveryScapeaging. Thea Paz RN [facility] 10-23-2023 Nurse Note GI Pre-Procedure Spoke with patient: Yes Confirmed date scheduled and patient report time: Yes Procedure Planned:Esophagogastroduodenoscop y(EGD) with or without biopies based on clinical findings, removal of polyps or lesions Is the patient on blood thinners? No Procedure Instructions given to patient: Yes, and they verbalized their understanding of instructions given Patient instructed to take prescribed preparation prior to procedure: N/A Patient instructed to have family/friend present for procedure transport home:Patient was told that if they do not have a responsible adult accompany them to their procedure; and remain in the endoscopy area until they are discharged; that their procedure cannot be done with sedation or anesthesia and may be cancelled. They verbalized their understanding and agree to have a responsible adult accompany the patient to their procedure and remain in the endoscopy area. Any barriers to Patient learning: Patient responded appropriately on phone. Type of instruction given: Verbal by telephone contact. Written instructions sent via myThings messaging. Thea Paz RN documented in this encounter [facility] 10-16-[address] - 10/16/2023 9:55 AM EDT Nutrition Intervention 10/16/2023: Modify type and amount of food at meals and snacks 1. Begin liquid diet with clear liquids and protein shakes 2 days before procedure. -Should have last protein shake around 6pm night before procedure and nothing to eat or drink after midnight. -Day of procedure nothing to eat or drink 2. Review Endoscopic weight loss procedure guidelines (will be given guidebook day of procedure) 3. Advance from clear liquids to Stage 3 protein shakes 48 hours following procedure for a 45 day duration -Protein shakes should have 150-200 calories, minimum of 15 grams of protein, maximum of 5 gram of sugar (Slimfast High Protein (lactose-free), Atkins Advantage, Boost Glucose Control) 4. Aim for 64 oz fluid/day (zero calorie, no carbonation, no caffeine, no alcohol) 5. Aim for 74 g protein/day 6. Take daily chewable multivitamins and daily chewable calcium citrate OR trial with Bariatric Fusion Complete Chewables (2 in the morning, 2 at night) 7. Eat/drink protein shakes at regular intervals (every ~3 hours) 8. Separate eating and drinking by 30 minutes 9. Recommend exercising, overall goal of 150-200 minutes per week (including both cardio and weight resistance) - Do not advance to Stage 4 until at least 45 days post-op and protein goals are consistently being met * Stage 4: focus on meeting protein goals through soft, moist protein foods. Introduce appropriate vegetables, fruits, starches as able - Do not advance to Stage 5 until at least 60 days post-op and protein goals are consistently being met documented in this encounter [facility] 10-16-2023 History of Present illness Narrative Nutritional Therapy Re-Assessment Nutrition Diagnosis: Altered Gastrointestinal Tract Function, related to, S/P bariatric surgery, as evidenced by surgical and weight history RECOMMENDED MALNUTRITION DIAGNOSIS: NO MALNUTRITION IDENTIFIED NUTRITION CARE PLAN: Nutrition Intervention 10/16/2023: Modify type and amount of food at meals and snacks 1. Begin liquid diet with clear liquids and protein shakes 2 days before procedure. -Should have last protein shake around 6pm night before procedure and nothing to eat or drink after midnight. -Day of procedure nothing to eat or drink 2. Review Endoscopic weight loss procedure guidelines (will be given guidebook day of procedure) 3. Advance from clear liquids to Stage 3 protein shakes 48 hours following procedure for a 45 day duration -Protein shakes should have 150-200 calories, minimum of 15 grams of protein, maximum of 5 gram of sugar (Slimfast High Protein (lactose-free), Atkins Advantage, Boost Glucose Control) 4. Aim for 64 oz fluid/day (zero calorie, no carbonation, no caffeine, no alcohol) 5. Aim for 74 g protein/day 6. Take daily chewable multivitamins and daily chewable calcium citrate OR trial with Bariatric Fusion Complete Chewables (2 in the morning, 2 at night) 7. Eat/drink protein shakes at regular intervals (every ~3 hours) 8. Separate eating and drinking by 30 minutes 9. Recommend exercising, overall goal of 150-200 minutes per week (including both cardio and weight resistance) - Do not advance to Stage 4 until at least 45 days post-op and protein goals are consistently being met * Stage 4: focus on meeting protein goals through soft, moist protein foods. Introduce appropriate vegetables, fruits, starches as able - Do not advance to Stage 5 until at least 60 days post-op and protein goals are consistently being met Nutrition Monitoring & Evaluation: 1-2# weight loss per week Need for Follow up: as already scheduled PROGRESS: Interval History: Nutrition follow up in preparation for GI/bariatric endoscopy procedure, interested in APC. Patient has APC scheduled for 10/30/[address] Thomas. Since last encounter patient has gained 4#. Diet recall reveals consistent meal pattern with no skipped meals. Meeting protein needs with use of protein shakes. Fluids sufficient in type and amount. Taking recommended vitamins. Patient reports exercise has been lacking lately due to getting plantar fascitis after returning from vacation. Has an appointment with the doctor next week. Has been doing yoga and stretching for activity. After session today, patient able to verbalize protein/fluid/exercise goals, recommendations for vitamin/minerals, use of protein shakes during post-procedure liquid diet. Also able to demonstrate post-procedure diet advancement/portion control using food models. Anticipate post-procedure compliance. Nutrition Intervention 03/27/2023: Modify type and amount of food consumed for meals and snacks: 1. Protein: Continue to strive for 74 g protein per day. Eat protein first at all meals. Lean meats, low fat/part skim dairy products, peanut butter, eggs, beans. 2. Eat 4 small meals per day or 3 meals and 1-2 small snacks for additional protein 3. Fluids: 64 oz per day, minimum. No carbonation, no caffeine, no calories, no alcohol. 4. Vitamin/minerals: Take daily multivitamin with 200 % daily value for all vitamin/minerals plus VIt D3 3,000 IU, Vit B12 500 mcg, Iron 45 mg and calcium citrate 1484-3725 mg/day . It is okay to use combination vitamin/minerals to reduce pill volume. 5. Exercise: strive for daily activity - combine strength training and cardio for best workouts. Goal is 30 minutes 5-6x per week. 6. Practice these: Eat in this order protein first, vegetable and fruit second and whole grain carbohydrates last. * Separate eating and drinking by 30 minutes * Chew your food 20-30x per bite * Meals should last 30 minutes. 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 Resting Metabolic Rate: 1534 Malnutrition Screening Significant unintentional weight loss? No Eating less than 75% of usual intake for more than 2 weeks? No Potential Signs of Inflammation: no identifiable sources Nutritional status: Education Materials Provided: None this visit READINESS TO LEARN Cognitive ability: Alert and oriented Motivation to learn: Interested Family support: Unable to assess - Family not present Instruction provided to: Patient Patient learns best by: Multiple Methods Factors affecting learning: None Physical limitations affecting learning: None Likelihood of Adherence: Moderate Referred/Supervised by: Dr. Thomas/Dr. Thomas MNT Billing Type: Re-assess/15 min 2 units SIGNATURE: Angie Roth RD PATIENT NAME: Melissa Nichols DATE: October 15, 2023 TIME: 3:52 PM PAGER: documented in this encounter [facility] 10-16-2023 History of Present illness Narrative Demetri Arnold DO [address] [facility] [place] [address] GI/Bariatric Endoscopy Clinic Visit Gastroenterology, Hepatology, and Nutrition Department ?[facility] ? 10/16/2023 Reason for Visit: Complications of bariatric procedure s/p RYGB, weight regain, weight management Patient is: Established patient Dear Demetri Arnold DO, ? I had the pleasure of seeing Melissa Nichols in the [facility] GI/Bariatric Endoscopy Clinic for complications of bariatric procedure s/p RYGB, weight regain, weight management ?? The patient is a 53 year old female with past medical history as below presenting to us with complications of bariatric procedure s/p RYGB, weight regain, weight management. Interval: Unable to lose weight s/p RYGB in 2003 EGBR/TORe denied she is scheduled on 10/30/23 for EGBR/APC revision. We discussed procedure in details. Completed labs, fibroscan and PACC visit today. We reviewed resulted results. She was given and we went over nutrition guidelines in detail. Prescribed post procedure medications to preferred pharmacy. She plans on changing to chewable MVI post procedure, currently taking capsule MVI with additional iron and vit D supplements. Prior History/ note from initial VV 03/06/2022, Maranda Castro REPORT CLERK: Melissa Nichols has a history of obesity since childhood. Comorbidities are: obesity class III, vitamin D deficiency, complex endometrial hyperplasia, anemia, degenerative joint disease, arthritis, positive JESSICA (nodules on joints f/u with Bobbin Winder Dr. Woo) and hypothyroid. Melissa Nichols underwent RYGB at [place] with Dr. Read on 04/2004. Barretts Esophagus prior to RYGB. no complications post RYGB. She denies having any reflux or heartburn. 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 The patient then experienced weight regain in 2019 and now weighs 231 lbs. The patient is here today complaining of the ability to eat larger portions and has satiety that does not last. Weight gain/regain and Obesity disease: The patient reports could eat several high caloric meals and beverages per day despite not feeling very hungry. Also not feeling satiety or full after eating several meals. Reports craving to eat throughout the day. This has resulted in weight gain/regain and worsening of obesity. Patient has tried to control the diet and be able to lose weight up to 20 lbs. Unfortunately, the patient would subsequently experience rebound weight regain following lifestyle modification interventions (diet + exercise). Patient has tried increasing physical activity or exercise, Weight Watcher, Fast metabolism diet (eat 4-6 small meals a day), Keto diet, high protein/low carb sugar diets, Intermittent fasting, Meal replacement plan, multiple dietitian healthy diets (low carbs, low fat, high protein diets), behavioral therapy and baritastic phone shen. Patient has tried medications (Topamax, Phen fen) and is following obesity medicine. She is not interested in revisional bariatric surgery. Patient exercises 4 times a week for 20-30 min every time: walking, chair yoga, treadmil, bike.Unfortunately, despite all the above interventions, patient's weight problem has started to severely affect patient's lifestyle and health. Specifically, patient has been experiencing ACL/MCL Repair from torn meniscus, also broke her ankle in 2021 which is exacerbated after walking 0.5-1 miles and this is now impairing the patient from been more physically active. Melissa Nichols was seen by primary care, orthopedics, bariatric specialities who recommended to lose weight and weight loss interventions. 24 hrs Diet recall: See dietitian note from today Wakes up to eat: No Current Exercise Activity: Walking and aerobic exercises she is aware to avoid strenuous activity for 4 weeks post APC Weight History: Pre-RYGB weight: 280 lbs (BMI 51.2). Post-RYGB ava: 160 lbs (BMI 29.3). BP 126/72 Pulse 74 Temp 36.7 C (98 F) (Temporal) Ht 157.6 cm (5' 2.05) Wt 99.3 kg (219 lb) LMP 09/03/2013 SpO2 100% BMI 39.99 kg/m LMP 09/03/2013 Goal weight BMI < 27: 162.3 Goal weight BMI < 30: 180.3 Last 5 Encounter Wt Readings: Date: Wt: 07/18/2023 98.4 kg (217 lb) 06/03/2023 98.4 kg (217 lb) 04/18/2023 96.6 kg (213 lb) 03/27/2023 97.5 kg (215 lb) 02/20/2023 98 kg (216 lb) Risk factors: Tobacco use: No EtOH intake: Rare social NSAIDs: No H. Pylori: No (EGD 2003 prior showed barretts repeat EGD normal) FH:No, brother recently diagnosed with rectal cancer and father with liver and pancreatic ca PH: No Relevant Medications: Phen fin in the past Topamax SE of nausea, not feeling well Vitamins/Minerals Supplements: - Vitamin D3 - Calcium 1200 mg - Multivitamin Relevant Bariatric Procedures/Surgeries Bariatric Surgeon: J[facility] at [facility] Bariatric Surgery: 2003 Abisai-en-Y Gastric Bypass (RYGB) Past Medical History: PAST MEDICAL HISTORY Diagnosis Date Broken ankle Right ankle no surgery Hypothyroidism Melanoma (HCC) Pneumonia 11/25/2018 Past Surgical History: PAST SURGICAL HISTORY Procedure Laterality Date DILATION & CURETTAGE DX&/THER NONOBSTETRIC 08/05/2013 Polypectomy EGD W/O BRSH SPEC VARICIES INJ 2022 ENDOVENOUS LASER, 1ST VEIN 07/22, 12/22, 03/24 [address] Linton GASTRIC BYPASS HX 2005 HYSTERECTOMY HX KNEE SURGERY HX Right 11/10/2019 ACL/MCL/Miniscus LIG/TRNSXJ FLP TUBE ABDL/VAG APPR UNI/BI 2009 MELANOMA OF SKIN BIOPSY SYN RPT MELANOMA OF SKIN EXCISION SYN RPT REPAIR UMBILICAL HERNIA 2002, 2003 mesh SKIN BIOPSY HX Medications: Current Outpatient Medications Medication Sig Dispense Refill buPROPion SR (WELLBUTRIN SR) 150 mg 12 hr tablet Take 1 tablet by mouth two times a day. 180 tablet 0 semaglutide, weight loss, (WEGOVY) 0.25 mg/0.5 mL pen injector Inject 0.5 mL subcutaneously one time a week. 4 mL 0 calcium citrate/vitamin D3 (CALCIUM CITRATE + D ORAL) Take 1,200 mg by mouth once daily. hydroxychloroquine (PLAQUENIL) 200 mg tablet Take 200 mg by mouth once daily. ergocalciferol, vitamin D2, (DRISDOL) 50,000 unit capsule Take 1 capsule by mouth once each week. ferrous sulfate 325 mg (65 mg iron) tablet Take 65 mg by mouth twice daily. levothyroxine (SYNTHROID) 100 mcg tablet Take 1 tablet by mouth once daily. Multivitamin capsule Take 1 capsule by mouth once daily. No current facility-administered medications for this visit. Allergies: ALLERGIES No Known Allergies Family History: No known colon cancer, polyps, IBD, celiac disease, pancreatic disease, or liver disease. FAMILY HISTORY Problem Relation Age of Onset Stroke Mother 42 DVT Mother other (CHF) Mother other (Bipolar Disorder) Mother dx after stroke Alcohol/Drug Father alcohol Diabetes Father Hypertension Father Cancer Father liver and pancreatic Hypertension Sister DVT Sister Rectal Cancer Brother COPD Brother Alcohol abuse Brother Hypertension Maternal Grandmother Hyperlipidemia Maternal Grandmother COPD Maternal Grandmother Diabetes Paternal Grandmother Kidney failure Paternal Grandmother Diabetes Paternal Grandfather No Known Problems Daughter No Known Problems Daughter ? Social History: Social History Tobacco Use Smoking status: Never Smokeless tobacco: Never Vaping Use Vaping Use: Never used Substance Use Topics Alcohol use: No Drug use: No Tobacco: Tobacco Use: Never Alcohol: Alcohol Use: No Illicits: Drug Use: No Review of Systems: Review of Systems Constitutional: no fevers, chills, night sweats, or weight loss Cardiovascular: no chest pain Pulmonary: no shortness of breath Eyes: no visual changes or eye irritation Musculoskeletal: no myalgias or arthralgias Skin: no new or changing skin lesions, rashes or pruritis 12 point ROS otherwise negative. Physical Examination: BP 126/72 Pulse 74 Temp 36.7 C (98 F) (Temporal) Ht 157.6 cm (5' 2.05) Wt 99.3 kg (219 lb) LMP 09/03/2013 SpO2 100% BMI 39.99 kg/m Physical Exam Constitutional: Pleasant, NAD HEENT: Anicteric, /P clear Neck: No lymphadenopathy Cardiovascular: RRR, S1 S2, no m/r/g Respiratory: CTAB, no w/r/r Gastrointestinal: Abdomen is soft, non-tender, non-distended with normoactive BS. No rebound/guarding, No HSM. Musculoskeletal: No peripheral edema. Neurological Exam: AAOx3 Skin: No rash or jaundice Laboratory Data: Lab Results Component Value Date WBC 6.05 06/30/2019 WBC 3.2 (L) 12/20/2008 HCT 37.9 06/30/2019 HCT 33.5 (L) 12/20/2008 PLT 168 06/30/2019 PLT 266 12/20/2008 Lab Results Component Value Date ALB 4.0 06/30/2019 TBILI 0.7 06/30/2019 No results found for: PT, PTCTRL, PTPOC, INR, PTT No components found for: VITDT, 25VITD, 25OHVITAMIND Lab Results Component Value Date B12 405 02/22/2022 TSH Date Value Ref Range Status 10/13/2009 1.75 0.34 - 5.60 UIU/ML Final Comment: TSH: ULTRASENSITIVE METHOD- LOWER DETECTION LIMIT = 0.01 UIU/ML No components found for: GHBA1C, [id number] WBC (k/uL) Date Value 06/30/2019 6.05 RBC (m/uL) Date Value 06/30/2019 4.02 Hemoglobin (g/dL) Date Value 06/30/2019 12.3 Hematocrit (%) Date Value 06/30/2019 37.9 MCV (fL) Date Value 06/30/2019 94.3 MCH (pG) Date Value 06/30/2019 30.6 MCHC (g/dL) Date Value 06/30/2019 32.5 RDW-CV (%) Date Value 06/30/2019 12.9 Platelet Count (k/uL) Date Value 06/30/2019 168 MPV (fL) Date Value 06/30/2019 9.2 Potassium (mmol/L) Date Value 06/30/2019 3.3 Sodium (mmol/L) Date Value 06/30/2019 137 Creatinine (mg/dL) Date Value 06/30/2019 0.79 BUN (mg/dL) Date Value 06/30/2019 8 Glucose (mg/dL) Date Value 06/30/2019 138 TSH (UIU/ML) Date Value 10/13/2009 1.75 Glucose (mg/dL) Date Value 06/30/2019 138 (H) BUN (mg/dL) Date Value 06/30/2019 8 Creatinine (mg/dL) Date Value 06/30/2019 0.79 Sodium (mmol/L) Date Value 06/30/2019 137 Potassium (mmol/L) Date Value 06/30/2019 3.3 (L) Chloride (mmol/L) Date Value 06/30/2019 100 CO2 (mmol/L) Date Value 06/30/2019 24 Protein, Total (g/dL) Date Value 06/30/2019 7.1 Albumin (g/dL) Date Value 06/30/2019 4.0 Calcium (mg/dL) Date Value 06/30/2019 9.1 Alkaline Phosphatase (U/L) Date Value 06/30/2019 69 Bilirubin, Total (mg/dL) Date Value 06/30/2019 0.7 AST (U/L) Date Value 06/30/2019 21 ALT (U/L) Date Value 06/30/2019 24 Glucose (mg/dL) Date Value 06/30/2019 138 Creatinine (mg/dL) Date Value 06/30/2019 0.79 Potassium (mmol/L) Date Value 06/30/2019 3.3 AST (U/L) Date Value 06/30/2019 21 ALT (U/L) Date Value 06/30/2019 24 Hemoglobin A1C (%) Date Value 02/22/2022 5.4 Cholesterol, Total (MG/DL) Date Value 10/13/2009 173 HDL Cholesterol (MG/DL) Date Value 10/13/2009 61 ] LDL Cholesterol (MG/DL) Date Value 10/13/2009 92 Triglyceride (MG/DL) Date Value 10/13/2009 101 ] Imagin03/25/2023 Fibroscan Please refer to get images report for individual readings Number of readings: 10 IQR %: 16% E (kpa): 5.7 CAP: 319 Impression The reading was adequate. FS=5.7 kPA. The CAP score is 319 and corresponds to steatosis grade of S3. 03/27/2007 CT ABD WO CONTRAST FINDINGS: The liver and spleen are normal as are both kidneys. There are postsurgical changes in the upper abdomen consistent with previous gastric bypass surgery. It should however be noted that there is a paucity of contrast in the region of the stomach and upper abdomen. I am suspicious of some periaortic adenopathy but this could also represent bowel In the lower cuts located at midline is a small ventral hernia and soft tissue density in the anterior abdomen which I believe is related to the surgery if there has been a midline incision. IMPRESSION: Postoperative changes with small ventral hernia and soft tissue prominence in the midline 2. Possible periaortic adenopathy. 3. I would doubt that the findings account for the right upper quadrant mass that is clinically suspected 12/08/2006 US RUQ ABD IMPRESSION: A single focus of comet-tail artifact originating from the nondependent gallbladder wall suggesting adenomyomatosis. Endoscopy: EGD 07/05/2022: Findings: The Z-line was irregular and was found 35 cm from the incisors. Biopsies were taken with a cold forceps for histology. The examined esophagus was otherwise normal. The GE junction and hiatus were at 35 cm from incisors. Evidence of a Abisai-en-Y gastric bypass (RYGB) was found. The gastrojejunal anastomosis (GJA) was characterized by normal appearing mucosa. No ulcers, erosion, sutures or zeke. The GJA outlet was dilated 25 mm diameter and was traversed. The gastric pouch extended from 35 cm to 40 cm from the incisors. No gastro-gastric fistula was found. The jejunum was normal at 60 cm (both Abisai/alimentary and blind limbs). No food or debris in the blind limb. Impression: - Z-line irregular, 35 cm from the incisors. Biopsied. 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 - Normal examined jejunum. Pathology: FINAL DIAGNOSIS A. Esophagus, lower, biopsy: - Squamous and glandular mucosa with increased chronic inflammation. - Negative for intestinal metaplasia and dysplasia. Assessment and Recommendations: ??53 year old female with history as per HPI obesity class III, vitamin D deficiency, complex endometrial hyperplasia, anemia, degenerative joint disease, arthritis, positive JESSICA, hypothyroid, presenting to GI/Bariatric Endoscopy clinic for evaluation of complications of bariatric procedure s/p RYGB, weight regain, obesity class III and weight management. Interval: Educated on all pre and post procedure details, prescribed post procedure medications and given and reviewed nutritional guidelines. Weight History: Pre-RYGB weight: 280 lbs (BMI 51.2). Post-RYGB ava: 160 lbs (BMI 29.3). weight: 234 lbs (BMI 42.80) weight: 216 lbs (BMI 41.9) weight: 213 lbs (BMI 40.25) Last visit weight: 217 lbs (BMI 41) Recommendations: - EGD +APC as scheduled - Start 2 days of liquid protein diet and NPO after midnight prior to scheduled procedure (No protein shakes after 6 pm prior to procedure) - Continue to follow Nutritional guidelines post APC reviewed and provided copy - All other medications will need to changed to liquid or crushable for 6 weeks post procedure and to be discussed with prescribing provider - Post APC medications include above PPI all have been prescribed to pharmacy on file Carafate to be taken four times a day before meals and at bedtime tablet can be crushed and mixed with water (start 48 hours after procedure, take first) PPI omeprazole 40 mg twice a day open capsule sprinkle over applesauce and take 30 minutes before breakfast and 30 minutes before dinner Zofran 8 mg disintegrating as needed every 8 hrs Tylenol 500 mg as needed for pain every 6 hrs Scopalamine patch last for [address] on as directed the night prior to procedure - Emphasized need for aerobic exercise, low-impact exercises and she will need to avoid resistance training for 4 weeks post APC - Continue diet and lifestyle modifications - Continue to see and follow up with GI bariatric endoscopy dietitian, Trey Ceron RD - Continue to see and follow up with GI bariatric endoscopy psych, Dr. Oliveros - [facility] as scheduled for follow up of medically supervised weight management program We reviewed coronavirus precautions including avoiding public places, maintaining 6 feet of distance from other persons when in public, no sick contacts, and fastidious handwashing. Thank you for allowing me to participate in the care of your patient. If you have any questions or concerns, please feel free to contact me. Maranda Castro APRN.CNP GI Bariatric Endoscopy 10/16/2023 9:32 AM documented in this encounter [facility] 10-16-2023 History of Present illness Narrative Patient fasting for 3 hours:Yes Fibroscan was performed on October 16, 2023, by Meghan Capps LPN and results are interpreted by Payton Martin PA-C Indication: History of gastric bypass [Z98.84] Vitamin D deficiency [E55.9] Complications of gastric bypass surgery [K91.89, Y83.2] Body mass index 40.0-44.9, adult (HCC) [Z68.41] Hepatic steatosis [K76.0] Pre-op testing [Z01.818] Please refer to get images report for individual readings Number of readings: 10 IQR %: 11 E (kpa): 5.4 CAP: 249 Impression The reading was adequate. FS =5.4 kPA. The CAP score is 249 and corresponds to steatosis grade of S1. The fibrosis interpretation threshold for history of gastric bypass diagnosis in Fibroscan is not well-established or validated and the reading may serve as a reference point for follow up. This reading corresponds: A 94% chance of stage 0-2 fibrosis A 6% chance of stage 3-4 fibrosis (advanced fibrosis) A <1% chance of stage 4 fibrosis (cirrhosis). A kPa >20 indicates a high likelihood of stage 4 fibrosis/cirrhosis, consider further testing to confirm. Payton Martin PA-C Others/All Fibroscan Fibrosis Risk <7 kPA = F0-F2 94%, F3+F4 6%, F4 <1% <10 kPA = F0-F2 88%, F3+F4 12%, F4 1.8% 10-15 kPA = F0-F2 47%, F3+F4 53%, F4 19% >15 kPA = F0-F2 17%, F3+F4 83%, F4 61% Grade CAP value up to 237 dB/M corresponds to S0 (< 10 % Fat) CAP value between (238 - 258 dB/M) corresponds to S1 (>/= 11 % Fat) CAP value between (259 - 289 dB/M) corresponds to S2 (>/= 33 % Fat) CAP value > 290dB/M corresponds to S3 (>/= 67 % Fat) stage 0 ( S0:< 10 % steatosis) stage 1 (>/= S1: 11%-33% steatosis) stage 2 (>/= S2: 34%-66% steatosis) stage 3 (>/= S3: > 66% steatosis) Reference Carl Sánchez Q, Ankit T, Shaye J, Ankit H, Christiano T. Controlled attenuation parameter for assessment of hepatic steatosis grades: a diagnostic meta-analysis. Int J Clin Exp Med. 2015 Feb 23;8(10):54959-41. PMID: 98550790; PMCID: [id number]. Dvaid Mcdaniel, Kwesi AVERY, Ruma M, Yuli F, Milo J, Farhana O, Lionel F, Олег M, Lacho G, Chris A, Vignesh E, Mele L, Emanuel G, Santiago A, Nicole U, Carrillo S, Oleksandr P, Aman V, de Celeste V, Sarah M, Malvin LACKEY. Refining the Baveno elastography criteria for the definition of compensated advanced chronic liver disease. J Hepatol. 2020;74(5):3049-2716. doi: 10.1016/j.jhep.2020.11.050. Epub 2019Apr 19. PMID: 07150766. documented in this encounter [facility] 09-25-2023 Telephone encounter Note sent [facility] 09-25-2023 Miscellaneous Notes sent Medication name: levothyroxine (Synthroid, Levoxyl) 100 MCG tablet Medication dosage: 100 MCG Monthly quantity needed: 30 How many day supply requestin days Medication route: oral (PO) Medication administration time(s): daily If taking medication PRN, reason for taking medication: N/A If this is a controlled substance do you receive this or any other controlled medication from any other doctor or facility: N/A Ordering provider: Dr. Vazquez Date of last office visit: 08/27/23 Date of next office visit: 05/24/24 Date of last refill: (see medication tab): 03/04/23 Updated/Validated preferred pharmacy: Yes Patient instructed to contact the pharmacy prior to picking up the medication: n/a documented in this encounter [facility] 09-25-2023 Telephone encounter Note Medication name: levothyroxine (Synthroid, Levoxyl) 100 MCG tablet Medication dosage: 100 MCG Monthly quantity needed: 30 How many day supply requestin days Medication route: oral (PO) Medication administration time(s): daily If taking medication PRN, reason for taking medication: N/A If this is a controlled substance do you receive this or any other controlled medication from any other doctor or facility: N/A Ordering provider: Dr. Vazquez Date of last office visit: 08/27/23 Date of next office visit: 05/24/24 Date of last refill: (see medication tab): 03/04/23 Updated/Validated preferred pharmacy: Yes Patient instructed to contact the pharmacy prior to picking up the medication: n/a [facility] 08-13-2023 History of Present illness Narrative Spoke with patient and assisted to schedule APC procedure plus pre/ post visits documented in this encounter [facility] 07-18-2023 History of Present illness Narrative Images from the original note were not included. Demetri Arnold, DO [address] [facility] [place] [address] GI/Bariatric Endoscopy Clinic Visit Gastroenterology, Hepatology, and Nutrition Department ?[facility] ? 07/18/2023 ? The patient encounter is a virtual/telephone visit today, 07/18/2023, in lieu of an office visit due to the current COVID-19 pandemic crisis and need for social distancing. Reason for Visit: Complications of bariatric procedure s/p RYGB, weight regain, obesity class III and weight management Patient is: Established patient Location of Provider: Hospital Location of Patient: Home Consent for virtual care, including informing the patient that insurance will be billed, and that in-person care is available in case of emergencies or as needed otherwise, was discussed at the time of scheduling. Dear Demetri Arnold, DO, ? I had the pleasure of seeing Melissa Nichols in the [facility] GI/Bariatric Endoscopy Clinic for Complications of bariatric procedure s/p RYGB, weight regain, weight management Interval: History of RYGB in 2003, c/b weight regain. P2P, appeal, along with the patient's personal appeal, was denied. Despite multiple attempts at various diets and antiobesity medications, including topamax which was stopped due to nausea, not feeling well, and no benefit of decreased appetite or weight loss reports short trial. Faby, unavailable. Discussed APC revision which the patient is interested in scheduling after their scheduled vacation in September, likely in October. Pre and post-procedure diet and medication protocols were reviewed with the patient. Dietitian advised follow up in March, will need f/u appt scheduled and I recommend scheduling with our psychologist. She is interested in starting Wellbutrin thoroughly discussed potential side effects. Addition of naltrexone may be considered in the future or alternatively, if Wellbutrin proves ineffective, she will schedule an in-person visit for considering initiation of phentermine. Prior History/ note from initial VV 03/06/2022, Maranda Castro REPORT CLERK: Melissa Nichols has a history of obesity since childhood. Comorbidities are: obesity class III, vitamin D deficiency, complex endometrial hyperplasia, anemia, degenerative joint disease, arthritis, positive JESSICA (nodules on joints f/u with Bobbin Winder Dr. Woo) and hypothyroid. Melissa Nichols underwent RYGB at [place] with Dr. Read on 04/2004. Barretts Esophagus prior to RYGB. no complications post RYGB. She denies having any reflux or heartburn. 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 The patient then experienced weight regain in 2018 and now weighs 231 lbs. The patient is here today complaining of the ability to eat larger portions and has satiety that does not last. Weight gain/regain and Obesity disease: The patient reports could eat several high caloric meals and beverages per day despite not feeling very hungry. Also not feeling satiety or full after eating several meals. Reports craving to eat throughout the day. This has resulted in weight gain/regain and worsening of obesity. Patient has tried to control the diet and be able to lose weight up to 20 lbs. Unfortunately, the patient would subsequently experience rebound weight regain following lifestyle modification interventions (diet + exercise). Patient has tried increasing physical activity or exercise, Weight Watcher, Fast metabolism diet (eat 4-6 small meals a day), Keto diet, high protein/low carb sugar diets, Intermittent fasting, Meal replacement plan, multiple dietitian healthy diets (low carbs, low fat, high protein diets), behavioral therapy and baritastic phone shen. Patient has tried medications (Topamax, Phen fen) and is following obesity medicine. She is not interested in revisional bariatric surgery. Patient exercises 4 times a week for 20-30 min every time: walking, chair yoga, treadmil, bike.Unfortunately, despite all the above interventions, patient's weight problem has started to severely affect patient's lifestyle and health. Specifically, patient has been experiencing ACL/MCL Repair from torn meniscus, also broke her ankle in 2021 which is exacerbated after walking 0.5-1 miles and this is now impairing the patient from been more physically active. Melissa Violeta Nichols was seen by primary care, orthopedics, bariatric specialities who recommended to lose weight and weight loss interventions. 24 hrs Diet recall:Dyn system Breakfast: scrambled eggs with 1/2 lite guamanian muffin and watermelon OR protein oatmeal/homemade oatmeal. Snack: algerian yogurt Lunch: salad with left over chicken Snack: sometimes string cheese Dinner: hello fresh lettuce wrap Snack: 2 cups of 35 lauren popcorn OR SF popsicle Wakes up to eat: no Current Exercise Activity: Elliptical and rowing machine for 20 mins 3x a week not as active limited from back pain stretching Weight History: Pre-RYGB weight: 280 lbs (BMI 51.2). Post-RYGB ava: 160 lbs (BMI 29.3). Ht 154.9 cm (5' 1) Wt 98.4 kg (217 lb) LMP 09/03/2013 BMI 41.00 kg/m LMP 09/03/2013 Goal weight BMI < 27: 162.3 Goal weight BMI < 30: 180.3 Last 5 Encounter Wt Readings: Date: Wt: 02/25/2022 106.6 kg (235 lb) 02/15/2022 106.6 kg (235 lb) 12/07/2021 108 kg (238 lb) 12/06/2021 108.4 kg (239 lb) 12/04/2020 101.6 kg (224 lb) Risk factors: Tobacco use: No EtOH intake: Rare social NSAIDs: No H. Pylori: No (EGD 2003 prior showed barretts repeat EGD normal) FH:No, brother recently diagnosed with rectal cancer and father with liver and pancreatic ca PH: No Relevant Medications: Phen fin in the past Topamax SE of nausea, not feeling well Vitamins/Minerals Supplements: - Vitamin D3 - Calcium 1200 mg - Multivitamin Relevant Bariatric Procedures/Surgeries Bariatric Surgeon: Jacek at [facility] Bariatric Surgery: 2003 Abisai-en-Y Gastric Bypass (RYGB Past Medical History: PAST MEDICAL HISTORY Diagnosis Date Broken ankle Right ankle no surgery Hypothyroidism Melanoma (HCC) Pneumonia 11/25/2018 Past Surgical History: PAST SURGICAL HISTORY Procedure Laterality Date DILATION & CURETTAGE DX&/THER NONOBSTETRIC 08/05/2013 Polypectomy EGD W/O BRSH SPEC VARICIES INJ 2022 ENDOVENOUS LASER, 1ST VEIN 07/22, 12/22, 03/24 [address] Linton GASTRIC BYPASS HX 2005 HYSTERECTOMY HX KNEE SURGERY HX Right 11/10/2019 ACL/MCL/Miniscus LIG/TRNSXJ FLP TUBE ABDL/VAG APPR UNI/BI 2010 MELANOMA OF SKIN BIOPSY SYN RPT MELANOMA OF SKIN EXCISION SYN RPT REPAIR UMBILICAL HERNIA 2002, 2003 mesh SKIN BIOPSY HX Medications: Current Outpatient Medications Medication Sig Dispense Refill semaglutide, weight loss, (WEGOVY) 0.25 mg/0.5 mL pen injector Inject 0.5 mL subcutaneously one time a week. 4 mL 0 calcium citrate/vitamin D3 (CALCIUM CITRATE + D ORAL) Take 1,200 mg by mouth once daily. hydroxychloroquine (PLAQUENIL) 200 mg tablet Take 200 mg by mouth once daily. ergocalciferol, vitamin D2, (DRISDOL) 50,000 unit capsule Take 1 capsule by mouth once each week. ferrous sulfate 325 mg (65 mg iron) tablet Take 65 mg by mouth twice daily. levothyroxine (SYNTHROID) 100 mcg tablet Take 1 tablet by mouth once daily. Multivitamin capsule Take 1 capsule by mouth once daily. No current facility-administered medications for this visit. Allergies: ALLERGIES No Known Allergies Family History: No known colon cancer, polyps, IBD, celiac disease, pancreatic disease, or liver disease. FAMILY HISTORY Problem Relation Age of Onset Stroke Mother 42 DVT Mother other (CHF) Mother other (Bipolar Disorder) Mother dx after stroke Alcohol/Drug Father alcohol Diabetes Father Hypertension Father Cancer Father liver and pancreatic Hypertension Sister DVT Sister Rectal Cancer Brother COPD Brother Alcohol abuse Brother Hypertension Maternal Grandmother Hyperlipidemia Maternal Grandmother COPD Maternal Grandmother Diabetes Paternal Grandmother Kidney failure Paternal Grandmother Diabetes Paternal Grandfather No Known Problems Daughter No Known Problems Daughter ? Social History: Social History Tobacco Use Smoking status: Never Smokeless tobacco: Never Vaping Use Vaping Use: Never used Substance Use Topics Alcohol use: No Drug use: No Tobacco: Tobacco Use: Never Alcohol: Alcohol Use: No Illicits: Drug Use: No Review of Systems: Review of Systems Constitutional: Negative for chills and fever. Respiratory: Negative for cough. Cardiovascular: Negative for chest pain. Gastrointestinal: Negative for abdominal pain, blood in stool, constipation, diarrhea, nausea and vomiting. Constitutional: no fevers, chills, night sweats, weight loss Cardiovascular: no chest pain Pulmonary: no shortness of breath Eyes: no visual changes or eye irritation Musculoskeletal: lower back pain Skin: no new or changing skin lesions, rashes or pruritis 12 point ROS otherwise negative. Physical Examination: Ht 154.9 cm (5' 1) Wt 98.4 kg (217 lb) LMP 09/03/2013 BMI 41.00 kg/m Physical Exam virtual/videocall encounter: Patient reported height 5'2 and weight 217 lbs LMP 09/03/2013 General - Normal, obese, cooperative, in no acute distress Able to interact verbally by video conference Psych - ORIENTATION: normal to time place, person and situation Mood/Affect: AFFECT AND MOOD: Normal Head/Neuro - Normal size and shape Facial appearance normal Pulmonary - respiratory effort normal Cardiovascular - patient describes extremities normal, warm, no cyanosis,no clubbing and no edema Abdominal - Areas of pain/tenderness: denies Skin - abnormal lesions not visualized Motor - patient seen sitting with Normal appearing strength and coordination ? Laboratory Data: Lab Results Component Value Date B12 [id number] 02/22/2022 TSH Date Value Ref Range Status 10/13/2009 1.75 0.34 - 5.60 UIU/ML Final Comment: TSH: ULTRASENSITIVE METHOD- LOWER DETECTION LIMIT = 0.01 UIU/ML WBC (k/uL) Date Value 06/30/2019 6.05 RBC (m/uL) Date Value 06/30/2019 4.02 Hemoglobin (g/dL) Date Value 06/30/2019 12.3 Hematocrit (%) Date Value 06/30/2019 37.9 MCV (fL) Date Value 06/30/2019 94.3 MCH (pG) Date Value 06/30/2019 30.6 MCHC (g/dL) Date Value 06/30/2019 32.5 RDW-CV (%) Date Value 06/30/2019 12.9 Platelet Count (k/uL) Date Value 06/30/2019 168 MPV (fL) Date Value 06/30/2019 9.2 Potassium (mmol/L) Date Value 06/30/2019 3.3 Sodium (mmol/L) Date Value 06/30/2019 137 Creatinine (mg/dL) Date Value 06/30/2019 0.79 BUN (mg/dL) Date Value 06/30/2019 8 Glucose (mg/dL) Date Value 06/30/2019 138 TSH (UIU/ML) Date Value 10/13/2009 1.75 Glucose (mg/dL) Date Value 06/30/2019 138 (H) BUN (mg/dL) Date Value 06/30/2019 8 Creatinine (mg/dL) Date Value 06/30/2019 0.79 Sodium (mmol/L) Date Value 06/30/2019 137 Potassium (mmol/L) Date Value 06/30/2019 3.3 (L) Chloride (mmol/L) Date Value 06/30/2019 100 CO2 (mmol/L) Date Value 06/30/2019 24 Protein, Total (g/dL) Date Value 06/30/2019 7.1 Albumin (g/dL) Date Value 06/30/2019 4.0 Calcium (mg/dL) Date Value 06/30/2019 9.1 Alkaline Phosphatase (U/L) Date Value 06/30/2019 69 Bilirubin, Total (mg/dL) Date Value 06/30/2019 0.7 AST (U/L) Date Value 06/30/2019 21 ALT (U/L) Date Value 06/30/2019 24 Glucose (mg/dL) Date Value 06/30/2019 138 Creatinine (mg/dL) Date Value 06/30/2019 0.79 Potassium (mmol/L) Date Value 06/30/2019 3.3 AST (U/L) Date Value 06/30/2019 21 ALT (U/L) Date Value 06/30/2019 24 Hemoglobin A1C (%) Date Value 02/22/2022 5.4 Cholesterol, Total (MG/DL) Date Value 10/13/2009 173 HDL Cholesterol (MG/DL) Date Value 10/13/2009 61 ] LDL Cholesterol (MG/DL) Date Value 10/13/2009 92 Triglyceride (MG/DL) Date Value 10/13/2009 101 Imagin03/25/2023 Fibroscan Please refer to get images report for individual readings Number of readings: 10 IQR %: 16% E (kpa): 5.7 CAP: 319 Impression The reading was adequate. FS=5.7 kPA. The CAP score is 319 and corresponds to steatosis grade of S3. 03/27/2007 CT ABD WO CONTRAST FINDINGS: The liver and spleen are normal as are both kidneys. There are postsurgical changes in the upper abdomen consistent with previous gastric bypass surgery. It should however be noted that there is a paucity of contrast in the region of the stomach and upper abdomen. I am suspicious of some periaortic adenopathy but this could also represent bowel In the lower cuts located at midline is a small ventral hernia and soft tissue density in the anterior abdomen which I believe is related to the surgery if there has been a midline incision. IMPRESSION: Postoperative changes with small ventral hernia and soft tissue prominence in the midline 2. Possible periaortic adenopathy. 3. I would doubt that the findings account for the right upper quadrant mass that is clinically suspected 12/08/2006 US RUQ ABD IMPRESSION: A single focus of comet-tail artifact originating from the nondependent gallbladder wall suggesting adenomyomatosis. Endoscopy: EGD 07/05/2022: Findings: The Z-line was irregular and was found 35 cm from the incisors. Biopsies were taken with a cold forceps for histology. The examined esophagus was otherwise normal. The GE junction and hiatus were at 35 cm from incisors. Evidence of a Abisai-en-Y gastric bypass (RYGB) was found. The gastrojejunal anastomosis (GJA) was characterized by normal appearing mucosa. No ulcers, erosion, sutures or zeke. The GJA outlet was dilated 25 mm diameter and was traversed. The gastric pouch extended from 35 cm to 40 cm from the incisors. No gastro-gastric fistula was found. The jejunum was normal at 60 cm (both Abisai/alimentary and blind limbs). No food or debris in the blind limb. Impression: - Z-line irregular, 35 cm from the incisors. Biopsied. 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 - Normal examined jejunum. Pathology: FINAL DIAGNOSIS A. Esophagus, lower, biopsy: - Squamous and glandular mucosa with increased chronic inflammation. - Negative for intestinal metaplasia and dysplasia. Assessment and Recommendations: ??52 year old female with history as per HPI, obesity class III, vitamin D deficiency, complex endometrial hyperplasia, anemia, degenerative joint disease, arthritis, positive JESSICA (follows rheum.) and hypothyroid presenting to GI/Bariatric Endoscopy clinic for evaluation of complications of bariatric surgery s/p RYGB, and weight regain. Interval: History of RYGB in 2003, c/b weight regain. P2P, appeal, along with the patient's personal appeal, was denied. Despite multiple attempts at various diets and antiobesity medications, including topamax which was stopped due to nausea, not feeling well, and no benefit of decreased appetite or weight loss reports short trial. Faby, dennise. Discussed APC revision which the patient is interested in scheduling after their scheduled vacation in September, likely in October. Pre and post-procedure diet and medication protocols were reviewed with the patient. Dietitian advised follow up in March, will need f/u appt scheduled and I recommend scheduling with our psychologist. She is interested in starting Wellbutrin thoroughly discussed potential side effects. Addition of naltrexone may be considered in the future or alternatively, if Wellbutrin proves ineffective, she will schedule an in-person visit for considering initiation of phentermine. Weight History: Pre-RYGB weight: 280 lbs (BMI 51.2). Post-RYGB ava: 160 lbs (BMI 29.3). weight: 234 lbs (BMI 42.80) weight: 216 lbs (BMI 41.9) Last visit weight: 213 lbs (BMI 40.25) Todays weight: 217 lbs (BMI 41) Recommendations: - Start Wellbutrin 150 mg BID Discussed all side effects patient will reach out to our office with any questions or concerns - Continue diet and lifestyle modifications - Schedule appt f/u with one of our GI bariatric endoscopy dietitian, Trey Ceron RD/Angie Roth RD - Schedule appt with our GI bariatric endoscopy psych, Dr. Oliveros - Benefits and interested in APC revision - Increase physical activity aim for 200 mins of cardio and strength training exercises weekly - RTC in 4-6 weeks or pre procedure for follow up of medically supervised weight management program VIRTUAL VISIT I spent a total of 30 minutes during this real-time, interactive virtual clinical encounter, which was conducted virtually using HIPAA compliant videoconferencing technology. Greater than 50% of the time spent was devoted to counseling and coordinating care including review of records, pertinent lab data and studies, as well as discussing diagnostic evaluation and work up, planned therapeutic interventions and future disposition of care. This includes any additional research needed to obtain further information in formulating the plan of care of this patient. This includes counseling the patient about her disease and diagnosis, specifically: complications of bariatric surgery, weight gain, obesity class III and weight management We reviewed coronavirus precautions including avoiding public places, maintaining 6 feet of distance from other persons when in public, no sick contacts, and fastidious handwashing. Thank you for allowing me to participate in the care of your patient. If you have any questions or concerns, please feel free to contact me. Maranda Castro APRN.CNP GI Bariatric Endoscopy 07/18/2023 3:00 PM documented in this encounter [facility] 05-21-2023 History of Present illness Narrative Images from the original note were not included. [facility] [address] [place] [address] [address] [facility] [address] Dept: [phone] Dept Loc: [phone] 05/21/2023 Visit type: established patient Reason for Visit: Annual Exam (Pt is here today for a Physical, f/b Gynecology ) and Tailbone Pain (Chronic lower back pain, has seen a Chiropractor in the past. Also having bilateral groin pain. ) ASSESSMENT/PLAN 1. Physical exam - Zoster, Recombinant (Shingrix) 2. Vitamin D deficiency - Vitamin D Deficiency Screening (Vit D 25) 3. Morbidly obese (HCC) - Lipid panel - Hemoglobin A1c 4. Acquired hypothyroidism - TSH 5. Acquired iron deficiency anemia due to decreased absorption - Ferritin - Transferrin - Iron and TIBC Follow up in about 1 year (around 05/21/2024) for needs nurse visit in 2-6 months for second shringix. Subjective Patient: Melissa Nichols is a 52 y.o. female HPI Patient does go to dentist every 6 months for cleaning, does have regular vision exams. Encouraged patient to eat healthy, well balanced diet with fruits, vegetables, protein and complex carbohydrates. Encouraged regular exercise 3-4 times per week for 30-45 minutes at a time. Reviewed healthcare maintenance with patient. Had colonoscopy last year. Patient has been having chronic low back pain, worse in groin and gluteal area. She has been doing known PT exercises, stretches. Worse with sitting for prolonged periods of times. Review of Systems Constitutional: Negative for chills, fatigue and fever. HENT: Negative for congestion and rhinorrhea. Eyes: Negative for visual disturbance. Respiratory: Negative for cough and shortness of breath. Cardiovascular: Negative for chest pain, palpitations and leg swelling. Gastrointestinal: Negative for abdominal pain, blood in stool, constipation, diarrhea, nausea and vomiting. Genitourinary: Negative for difficulty urinating, dysuria and frequency. Musculoskeletal: Positive for back pain. Negative for arthralgias, gait problem and myalgias. Skin: Negative for color change, pallor and rash. Neurological: Negative for dizziness, weakness, light-headedness, numbness and headaches. Psychiatric/Behavioral: Negative for agitation, behavioral problems, confusion and dysphoric mood. The patient is not nervous/anxious. No Known Allergies Outpatient Medications Prior to Visit Medication Sig Dispense Refill ferrous sulfate 325 (65 Fe) MG tablet Take 65 mg by mouth in the morning and 65 mg in the evening. Hydroxychloroquine Sulfate 300 MG tablet TAKE 1 TABLET BY MOUTH WITH FOOD or milk ONCE DAILY levothyroxine (Synthroid, Levoxyl) 100 MCG tablet TAKE ONE TABLET BY MOUTH ONCE DAILY 30 tablet 7 ergocalciferol (Vitamin D-2) 1.25 MG (36756 UT) capsule Take 1 capsule (1.25 mg) by mouth 1 (one) time per week. 90 capsule 3 hydroxychloroquine (Plaquenil) 200 MG tablet Take 300 mg by mouth in the morning. No facility-administered medications prior to visit. Past Medical History: Diagnosis Date Autoimmune disorder (HCC) 11/09/2018 Cardiac dysrhythmia Chronic anemia Connective tissue disease (HCC) Elevated BP without hypertension GERD (gastroesophageal reflux disease) Grief grief adjustment Hypoglycemia Hypothyroidism Lung nodule Obesity 12 29 1999 Osteoarthritis Varicose veins Vitamin D deficiency Past Surgical History: Procedure Laterality Date ANTERIOR CRUCIATE LIGAMENT REPAIR Right 11/10/2019 GASTRIC BYPASS 04 18 2004 HYSTERECTOMY OTHER SURGICAL HISTORY Right 05/2016 posterior right calf melanoma removed. OTHER SURGICAL HISTORY 07 10 2012 vein sclerotherapy and 09/2012 TOTAL ABDOMINAL HYSTERECTOMY W/ BILATERAL SALPINGOOPHORECTOMY 09 23 2013 total UPPER GASTROINTESTINAL ENDOSCOPY 11 02 2013 chronic epigastric pain related to patients gastric pouch, no evidence of pathology Family History Problem Relation Name Age of Onset Alcohol abuse Father Diabetes Paternal Grandmother HTN Alcohol abuse Brother Diabetes Paternal Grandfather Stroke Mother Cancer Father pancreatic ca, liver Hypertension Maternal Grandmother Heart attack Bipolar disorder Mother No Known Problems Sister Other ([id number]) Mother manic depressive High Blood Pressure Other relative from this condition Diabetes Father Social History Tobacco Use Smoking status: Never Passive exposure: Never Smokeless tobacco: Never Substance Use Topics Alcohol use: Not Currently Objective BP 125/83 (BP Location: Right arm, Patient Position: Sitting, BP Cuff Size: Adult) Pulse 73 Temp 36.6 C (97.9 F) (Temporal) Ht 5' 2 (1.575 m) Wt 220 lb (99.8 kg) SpO2 98% BMI 40.24 kg/m Physical Exam Constitutional: General: She is not in acute distress. Appearance: Normal appearance. She is not ill-appearing. HENT: Head: Normocephalic and atraumatic. Right Ear: Tympanic membrane, ear canal and external ear normal. There is no impacted cerumen. Left Ear: Tympanic membrane, ear canal and external ear normal. There is no impacted cerumen. Eyes: Extraocular Movements: Extraocular movements intact. Conjunctiva/sclera: Conjunctivae normal. Pupils: Pupils are equal, round, and reactive to light. Cardiovascular: Rate and Rhythm: Normal rate and regular rhythm. Pulses: Normal pulses. Heart sounds: Normal heart sounds. Pulmonary: Effort: Pulmonary effort is normal. No respiratory distress. Breath sounds: Normal breath sounds. No stridor. No wheezing, rhonchi or rales. Musculoskeletal: Right lower leg: No edema. Left lower leg: No edema. Skin: Capillary Refill: Capillary refill takes less than 2 seconds. Neurological: Mental Status: She is alert. Psychiatric: Mood and Affect: Mood normal. Behavior: Behavior normal. Thought Content: Thought content normal. Judgment: Judgment normal. Data Reviewed and Summarized: Medical decision making including: See assessment an plan. Goals None [facility] Manish Vazquez MD documented in this encounter [facility] 05-21-2023 History of Present illness Narrative Images from the original note were not included. [facility] [address] [facility] [address] Dept: [phone] Dept Loc: [phone] 05/21/2023 Visit type: established patient Reason for Visit: Annual Exam (Pt is here today for a Physical, f/b Gynecology ) and Tailbone Pain (Chronic lower back pain, has seen a Chiropractor in the past. Also having bilateral groin pain. ) ASSESSMENT/PLAN 1. Physical exam 2. Vitamin D deficiency - Vitamin D Deficiency Screening (Vit D 25) 3. Morbidly obese (HCC) - Lipid panel - Hemoglobin A1c 4. Acquired hypothyroidism - TSH 5. Acquired iron deficiency anemia due to decreased absorption - Ferritin - Transferrin - Iron and TIBC - Iron and TIBC - Ferritin - Transferrin 6. Acute bilateral low back pain without sciatica -patient wishes to continue following with chiropracter -declined medical therapy -provided information regarding stretches Follow up in about 1 year (around 05/21/2024) for needs nurse visit in 2-6 months for second shringix. Subjective Patient: Melissa Nichols is a 52 y.o. female HPI Patient does go to dentist every 6 months for cleaning, does have regular vision exams. Encouraged patient to eat healthy, well balanced diet with fruits, vegetables, protein and complex carbohydrates. Encouraged regular exercise 3-4 times per week for 30-45 minutes at a time. Reviewed healthcare maintenance with patient. Had colonoscopy last year. Patient has been having chronic low back pain, worse in groin and gluteal area. She has been doing known PT exercises, stretches. Worse with sitting for prolonged periods of times. Review of Systems Constitutional: Negative for chills, fatigue and fever. HENT: Negative for congestion and rhinorrhea. Eyes: Negative for visual disturbance. Respiratory: Negative for cough and shortness of breath. Cardiovascular: Negative for chest pain, palpitations and leg swelling. Gastrointestinal: Negative for abdominal pain, blood in stool, constipation, diarrhea, nausea and vomiting. Genitourinary: Negative for difficulty urinating, dysuria and frequency. Musculoskeletal: Positive for back pain. Negative for arthralgias, gait problem and myalgias. Skin: Negative for color change, pallor and rash. Neurological: Negative for dizziness, weakness, light-headedness, numbness and headaches. Psychiatric/Behavioral: Negative for agitation, behavioral problems, confusion and dysphoric mood. The patient is not nervous/anxious. No Known Allergies Outpatient Medications Prior to Visit Medication Sig Dispense Refill ferrous sulfate 325 (65 Fe) MG tablet Take 65 mg by mouth in the morning and 65 mg in the evening. Hydroxychloroquine Sulfate 300 MG tablet TAKE 1 TABLET BY MOUTH WITH FOOD or milk ONCE DAILY levothyroxine (Synthroid, Levoxyl) 100 MCG tablet TAKE ONE TABLET BY MOUTH ONCE DAILY 30 tablet 7 ergocalciferol (Vitamin D-2) 1.25 MG (33650 UT) capsule Take 1 capsule (1.25 mg) by mouth 1 (one) time per week. 90 capsule 3 hydroxychloroquine (Plaquenil) 200 MG tablet Take 300 mg by mouth in the morning. No facility-administered medications prior to visit. Past Medical History: Diagnosis Date Autoimmune disorder (HCC) 11/09/2018 Cardiac dysrhythmia Chronic anemia Connective tissue disease (HCC) Elevated BP without hypertension GERD (gastroesophageal reflux disease) Grief grief adjustment Hypoglycemia Hypothyroidism Lung nodule Obesity 12 29 1999 Osteoarthritis Varicose veins Vitamin D deficiency Past Surgical History: Procedure Laterality Date ANTERIOR CRUCIATE LIGAMENT REPAIR Right 11/10/2019 GASTRIC BYPASS 04 18 2004 HYSTERECTOMY OTHER SURGICAL HISTORY Right 05/2016 posterior right calf melanoma removed. OTHER SURGICAL HISTORY 07 10 2012 vein sclerotherapy and 09/2012 TOTAL ABDOMINAL HYSTERECTOMY W/ BILATERAL SALPINGOOPHORECTOMY 09 23 2013 total UPPER GASTROINTESTINAL ENDOSCOPY 11 02 2013 chronic epigastric pain related to patients gastric pouch, no evidence of pathology Family History Problem Relation Name Age of Onset Alcohol abuse Father Diabetes Paternal Grandmother HTN Alcohol abuse Brother Diabetes Paternal Grandfather Stroke Mother Cancer Father pancreatic ca, liver Hypertension Maternal Grandmother Heart attack Bipolar disorder Mother No Known Problems Sister Other ([id number]) Mother manic depressive High Blood Pressure Other relative from this condition Diabetes Father Social History Tobacco Use Smoking status: Never Passive exposure: Never Smokeless tobacco: Never Substance Use Topics Alcohol use: Not Currently Objective BP 125/83 (BP Location: Right arm, Patient Position: Sitting, BP Cuff Size: Adult) Pulse 73 Temp 36.6 C (97.9 F) (Temporal) Ht 5' 2 (1.575 m) Wt 220 lb (99.8 kg) SpO2 98% BMI 40.24 kg/m Physical Exam Constitutional: General: She is not in acute distress. Appearance: Normal appearance. She is not ill-appearing. HENT: Head: Normocephalic and atraumatic. Right Ear: Tympanic membrane, ear canal and external ear normal. There is no impacted cerumen. Left Ear: Tympanic membrane, ear canal and external ear normal. There is no impacted cerumen. Eyes: Extraocular Movements: Extraocular movements intact. Conjunctiva/sclera: Conjunctivae normal. Pupils: Pupils are equal, round, and reactive to light. Cardiovascular: Rate and Rhythm: Normal rate and regular rhythm. Pulses: Normal pulses. Heart sounds: Normal heart sounds. Pulmonary: Effort: Pulmonary effort is normal. No respiratory distress. Breath sounds: Normal breath sounds. No stridor. No wheezing, rhonchi or rales. Musculoskeletal: Right lower leg: No edema. Left lower leg: No edema. Skin: Capillary Refill: Capillary refill takes less than 2 seconds. Neurological: Mental Status: She is alert. Psychiatric: Mood and Affect: Mood normal. Behavior: Behavior normal. Thought Content: Thought content normal. Judgment: Judgment normal. Data Reviewed and Summarized: Medical decision making including: See assessment an plan. Goals None [facility] Manish Vazquez MD documented in this encounter [facility] 05-20-2023 Telephone encounter Note Requested Prescriptions Pending Prescriptions Disp Refills ergocalciferol (Vitamin D-2) 1.25 MG (46140 UT) capsule 90 capsule 3 Sig: Take 1 capsule (1.25 mg) by mouth 1 (one) time per week. Recent Visits Date Type Provider Dept 07/04/22 Office Visit Manish Vazquez MD [facility] Showing recent visits within past 365 days and meeting all other requirements Future Appointments Date Type Provider Dept 05/21/23 Appointment Manish Vazquez MD [facility] Showing future appointments within next 90 days and meeting all other requirements Requested Prescriptions Pending Prescriptions Disp Refills ergocalciferol (Vitamin D-2) 1.25 MG (36221 UT) capsule 90 capsule 3 Sig: Take 1 capsule (1.25 mg) by mouth 1 (one) time per week. Provider: Beryl Auguste MA Overdue for visit: No If yes - patient scheduled? Yes Most recent labs completed in chart? Yes last Vit D level done on: 05/14/22 : 56 Verified pharmacy: yes Verified day(s) supplied: yes Verified refill(s) needed (previous prescription showing no refills in chart): Yes Have you received any controlled medications from any other provider? NA [facility] 05-20-2023 Miscellaneous Notes Requested Prescriptions Pending Prescriptions Disp Refills ergocalciferol (Vitamin D-2) 1.25 MG (62176 UT) capsule 90 capsule 3 Sig: Take 1 capsule (1.25 mg) by mouth 1 (one) time per week. Recent Visits Date Type Provider Dept 07/04/22 Office Visit Manish Vazquez MD [facility] Showing recent visits within past 365 days and meeting all other requirements Future Appointments Date Type Provider Dept 05/21/23 Appointment Manish Vazquez MD [facility] Showing future appointments within next 90 days and meeting all other requirements Requested Prescriptions Pending Prescriptions Disp Refills ergocalciferol (Vitamin D-2) 1.25 MG (69052 UT) capsule 90 capsule 3 Sig: Take 1 capsule (1.25 mg) by mouth 1 (one) time per week. Provider: Beryl Auguste MA Overdue for visit: No If yes - patient scheduled? Yes Most recent labs completed in chart? Yes last Vit D level done on: 23 : 56 Verified pharmacy: yes Verified day(s) supplied: yes Verified refill(s) needed (previous prescription showing no refills in chart): Yes Have you received any controlled medications from any other provider? NA documented in this encounter [facility] 04-18-2023 History of Present illness Narrative Images from the original note were not included. Demetri Arnold DO [address] [facility] [place] [address] GI/Bariatric Endoscopy Clinic Visit Gastroenterology, Hepatology, and Nutrition Department ?[facility] ? 04/18/2023 ? The patient encounter is a virtual/telephone visit today, 04/18/2023, in lieu of an office visit due to the current COVID-19 pandemic crisis and need for social distancing. Reason for Visit: Complications of bariatric procedure s/p RYGB, weight regain, obesity class III and weight management Patient is: Established patient Location of Provider: Hospital Location of Patient: Home Consent for virtual care, including informing the patient that insurance will be billed, and that in-person care is available in case of emergencies or as needed otherwise, was discussed at the time of scheduling. Dear Demetri Arnold DO, ? I had the pleasure of seeing Melissa Nichols in the [facility] GI/Bariatric Endoscopy Clinic for Complications of bariatric procedure s/p RYGB, weight regain, weight management Interval: Patient presents to follow up on complications of RYGB in 2003 c/b weight gain, obesity class III and weight management. Last EGD showed dilated and incompetent GJA outlet 25 mm and pouch 5 cm. Insurance denied TORe revision, she completed fibroscan which showed S3 fatty liver will resubmit or check on appeal status when in office next week if denied she would like to proceed with APC to treat obesity. She has tried topamax however stopped as she did not like how this made her feel. She is not interested in AOM. Weight today is 213 lbs. She has . She is active with elliptical and rower machine for 3x a week 20 mins each time. Prior History/ note from initial VV 03/06/2022, Maranda Castro REPORT CLERK: Melissa Nichols has a history of obesity since childhood. Comorbidities are: obesity class III, vitamin D deficiency, complex endometrial hyperplasia, anemia, degenerative joint disease, arthritis, positive JESSICA (nodules on joints f/u with Bobbin Winder Dr. Woo) and hypothyroid. Melissa Nichols underwent RYGB at [place] with Dr. Read on 04/2004. Barretts Esophagus prior to RYGB. no complications post RYGB. She denies having any reflux or heartburn. 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 The patient then experienced weight regain in 2019 and now weighs 231 lbs. The patient is here today complaining of the ability to eat larger portions and has satiety that does not last. Weight gain/regain and Obesity disease: The patient reports could eat several high caloric meals and beverages per day despite not feeling very hungry. Also not feeling satiety or full after eating several meals. Reports craving to eat throughout the day. This has resulted in weight gain/regain and worsening of obesity. Patient has tried to control the diet and be able to lose weight up to 20 lbs. Unfortunately, the patient would subsequently experience rebound weight regain following lifestyle modification interventions (diet + exercise). Patient has tried increasing physical activity or exercise, Weight Watcher, Fast metabolism diet (eat 4-6 small meals a day), Keto diet, high protein/low carb sugar diets, Intermittent fasting, Meal replacement plan, multiple dietitian healthy diets (low carbs, low fat, high protein diets), behavioral therapy and baritastic phone shen. Patient has tried medications (Topamax, Phen fen) and is following obesity medicine. She is not interested in revisional bariatric surgery. Patient exercises 4 times a week for 20-30 min every time: walking, chair yoga, treadmil, bike.Unfortunately, despite all the above interventions, patient's weight problem has started to severely affect patient's lifestyle and health. Specifically, patient has been experiencing ACL/MCL Repair from torn meniscus, also broke her ankle in 2021 which is exacerbated after walking 0.5-1 miles and this is now impairing the patient from been more physically active. Melissa Nichols was seen by primary care, orthopedics, bariatric specialities who recommended to lose weight and weight loss interventions. 24 hrs Diet recall:Badge Breakfast: scrambled eggs with 1/2 lite guamanian muffin and watermelon OR protein oatmeal/homemade oatmeal. Snack: algerian yogurt Lunch: salad with left over chicken Snack: sometimes string cheese Dinner: hello fresh lettuce wrap Snack: 2 cups of 35 lauren popcorn OR SF popsicle Wakes up to eat: no Current Exercise Activity: Elliptical and rowing machine for 20 mins 3x a week Weight History: Pre-RYGB weight: 280 lbs (BMI 51.2). Post-RYGB ava: 160 lbs (BMI 29.3). Ht 154.9 cm (5' 1) Wt 96.6 kg (213 lb) LMP 09/03/2013 BMI 40.25 kg/m LMP 09/03/2013 Goal weight BMI < 27: 162.3 Goal weight BMI < 30: 180.3 Last 5 Encounter Wt Readings: Date: Wt: 02/25/2022 106.6 kg (235 lb) 02/15/2022 106.6 kg (235 lb) 12/07/2021 108 kg (238 lb) 12/06/2021 108.4 kg (239 lb) 12/04/2020 101.6 kg (224 lb) Risk factors: Tobacco use: No EtOH intake: Rare social NSAIDs: No H. Pylori: No (EGD 2003 prior showed barretts repeat EGD normal) FH:No, brother recently diagnosed with rectal cancer and father with liver and pancreatic ca PH: No Relevant Medications: Phen fin past Topamax SE of nausea, stopped Vitamins/Minerals Supplements: - Vitamin D3 - Calcium 1200 mg - Multivitamin Relevant Bariatric Procedures/Surgeries Bariatric Surgeon: J[facility] at [facility] Bariatric Surgery: 2004 Abisai-en-Y Gastric Bypass (RYGB Past Medical History: PAST MEDICAL HISTORY Diagnosis Date Broken ankle Right ankle no surgery Hypothyroidism Melanoma (HCC) Pneumonia 11/25/2018 Past Surgical History: PAST SURGICAL HISTORY Procedure Laterality Date DILATION & CURETTAGE DX&/THER NONOBSTETRIC 08/05/2013 Polypectomy EGD W/O BRSH SPEC VARICIES INJ 2022 ENDOVENOUS LASER, 1ST VEIN 07/22, 12/22, 03/24 [address]SS[address] Linton GASTRIC BYPASS HX 2004 HYSTERECTOMY HX KNEE SURGERY HX Right 11/10/2019 ACL/MCL/Miniscus LIG/TRNSXJ FLP TUBE ABDL/VAG APPR UNI/BI 2009 MELANOMA OF SKIN BIOPSY SYN RPT MELANOMA OF SKIN EXCISION SYN RPT REPAIR UMBILICAL HERNIA 2002, 2003 mesh SKIN BIOPSY HX Medications: Current Outpatient Medications Medication Sig Dispense Refill calcium citrate/vitamin D3 (CALCIUM CITRATE + D ORAL) Take 1,200 mg by mouth once daily. hydroxychloroquine (PLAQUENIL) 200 mg tablet Take 200 mg by mouth once daily. ergocalciferol, vitamin D2, (DRISDOL) 50,000 unit capsule Take 1 capsule by mouth once each week. ferrous sulfate 325 mg (65 mg iron) tablet Take 65 mg by mouth twice daily. levothyroxine (SYNTHROID) 100 mcg tablet Take 1 tablet by mouth once daily. Multivitamin capsule Take 1 capsule by mouth once daily. No current facility-administered medications for this visit. Allergies: ALLERGIES No Known Allergies Family History: No known colon cancer, polyps, IBD, celiac disease, pancreatic disease, or liver disease. FAMILY HISTORY Problem Relation Age of Onset Stroke Mother 42 DVT Mother other (CHF) Mother other (Bipolar Disorder) Mother dx after stroke Alcohol/Drug Father alcohol Diabetes Father Hypertension Father Cancer Father liver and pancreatic Hypertension Sister DVT Sister Rectal Cancer Brother COPD Brother Alcohol abuse Brother Hypertension Maternal Grandmother Hyperlipidemia Maternal Grandmother COPD Maternal Grandmother Diabetes Paternal Grandmother Kidney failure Paternal Grandmother Diabetes Paternal Grandfather No Known Problems Daughter No Known Problems Daughter ? Social History: Social History Tobacco Use Smoking status: Never Smokeless tobacco: Never Vaping Use Vaping Use: Never used Substance Use Topics Alcohol use: No Drug use: No Tobacco: Tobacco Use: Never Alcohol: Alcohol Use: No Illicits: Drug Use: No Review of Systems: Review of Systems Constitutional: Negative for chills and fever. Respiratory: Negative for cough. Cardiovascular: Negative for chest pain. Gastrointestinal: Negative for abdominal pain, blood in stool, constipation, diarrhea, nausea and vomiting. Constitutional: no fevers, chills, night sweats Cardiovascular: no chest pain Pulmonary: no shortness of breath Eyes: no visual changes or eye irritation Musculoskeletal: no myalgias or arthralgias Skin: no new or changing skin lesions, rashes or pruritis 12 point ROS otherwise negative. Physical Examination: Ht 154.9 cm (5' 1) Wt 96.6 kg (213 lb) LMP 09/03/2013 BMI 40.25 kg/m Physical Exam virtual/videocall encounter: Patient reported height 5'2 and weight 213 lbs LMP 09/03/2013 General - Normal, obese, cooperative, in no acute distress Able to interact verbally by video conference Psych - ORIENTATION: normal to time place, person and situation Mood/Affect: AFFECT AND MOOD: Normal Head/Neuro - Normal size and shape Facial appearance normal Pulmonary - respiratory effort normal Cardiovascular - patient describes extremities normal, warm, no cyanosis,no clubbing and no edema Abdominal - Areas of pain/tenderness: denies Skin - abnormal lesions not visualized Motor - patient seen sitting with Normal appearing strength and coordination ? Laboratory Data: Lab Results Component Value Date [id number] 02/22/2022 TSH Date Value Ref Range Status 10/13/2009 1.75 0.34 - 5.60 UIU/ML Final Comment: TSH: ULTRASENSITIVE METHOD- LOWER DETECTION LIMIT = 0.01 UIU/ML WBC (k/uL) Date Value 06/30/2019 6.05 RBC (m/uL) Date Value 06/30/2019 4.02 Hemoglobin (g/dL) Date Value 06/30/2019 12.3 Hematocrit (%) Date Value 06/30/2019 37.9 MCV (fL) Date Value 06/30/2019 94.3 MCH (pG) Date Value 06/30/2019 30.6 MCHC (g/dL) Date Value 06/30/2019 32.5 RDW-CV (%) Date Value 06/30/2019 12.9 Platelet Count (k/uL) Date Value 06/30/2019 168 MPV (fL) Date Value 06/30/2019 9.2 Potassium (mmol/L) Date Value 06/30/2019 3.3 Sodium (mmol/L) Date Value 06/30/2019 137 Creatinine (mg/dL) Date Value 06/30/2019 0.79 BUN (mg/dL) Date Value 06/30/2019 8 Glucose (mg/dL) Date Value 06/30/2019 138 TSH (UIU/ML) Date Value 10/13/2009 1.75 Glucose (mg/dL) Date Value 06/30/2019 138 (H) BUN (mg/dL) Date Value 06/30/2019 8 Creatinine (mg/dL) Date Value 06/30/2019 0.79 Sodium (mmol/L) Date Value 06/30/2019 137 Potassium (mmol/L) Date Value 06/30/2019 3.3 (L) Chloride (mmol/L) Date Value 06/30/2019 100 CO2 (mmol/L) Date Value 06/30/2019 24 Protein, Total (g/dL) Date Value 06/30/2019 7.1 Albumin (g/dL) Date Value 06/30/2019 4.0 Calcium (mg/dL) Date Value 06/30/2019 9.1 Alkaline Phosphatase (U/L) Date Value 06/30/2019 69 Bilirubin, Total (mg/dL) Date Value 06/30/2019 0.7 AST (U/L) Date Value 06/30/2019 21 ALT (U/L) Date Value 06/30/2019 24 Glucose (mg/dL) Date Value 06/30/2019 138 Creatinine (mg/dL) Date Value 06/30/2019 0.79 Potassium (mmol/L) Date Value 06/30/2019 3.3 AST (U/L) Date Value 06/30/2019 21 ALT (U/L) Date Value 06/30/2019 24 Hemoglobin A1C (%) Date Value 02/22/2022 5.4 Cholesterol, Total (MG/DL) Date Value 10/13/2009 173 HDL Cholesterol (MG/DL) Date Value 10/13/2009 61 ] LDL Cholesterol (MG/DL) Date Value 10/13/2009 92 Triglyceride (MG/DL) Date Value 10/13/2009 101 Imagin03/25/2023 Fibroscan Please refer to get images report for individual readings Number of readings: 10 IQR %: 16% E (kpa): 5.7 CAP: 319 Impression The reading was adequate. FS=5.7 kPA. The CAP score is 319 and corresponds to steatosis grade of S3. 03/27/2007 CT ABD WO CONTRAST FINDINGS: The liver and spleen are normal as are both kidneys. There are postsurgical changes in the upper abdomen consistent with previous gastric bypass surgery. It should however be noted that there is a paucity of contrast in the region of the stomach and upper abdomen. I am suspicious of some periaortic adenopathy but this could also represent bowel In the lower cuts located at midline is a small ventral hernia and soft tissue density in the anterior abdomen which I believe is related to the surgery if there has been a midline incision. IMPRESSION: Postoperative changes with small ventral hernia and soft tissue prominence in the midline 2. Possible periaortic adenopathy. 3. I would doubt that the findings account for the right upper quadrant mass that is clinically suspected 12/08/2006 US RUQ ABD IMPRESSION: A single focus of comet-tail artifact originating from the nondependent gallbladder wall suggesting adenomyomatosis. Endoscopy: EGD 07/05/2022: Findings: The Z-line was irregular and was found 35 cm from the incisors. Biopsies were taken with a cold forceps for histology. The examined esophagus was otherwise normal. The GE junction and hiatus were at 35 cm from incisors. Evidence of a Abisai-en-Y gastric bypass (RYGB) was found. The gastrojejunal anastomosis (GJA) was characterized by normal appearing mucosa. No ulcers, erosion, sutures or zeke. The GJA outlet was dilated 25 mm diameter and was traversed. The gastric pouch extended from 35 cm to 40 cm from the incisors. No gastro-gastric fistula was found. The jejunum was normal at 60 cm (both Abisai/alimentary and blind limbs). No food or debris in the blind limb. Impression: - Z-line irregular, 35 cm from the incisors. Biopsied. 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 - Normal examined jejunum. Pathology: FINAL DIAGNOSIS A. Esophagus, lower, biopsy: - Squamous and glandular mucosa with increased chronic inflammation. - Negative for intestinal metaplasia and dysplasia. Assessment and Recommendations: ??52 year old female with history as per HPI, obesity class III, vitamin D deficiency, complex endometrial hyperplasia, anemia, degenerative joint disease, arthritis, positive JESSICA (follows rheum.) and hypothyroid presenting to GI/Bariatric Endoscopy clinic for evaluation of complications of bariatric surgery s/p RYGB, and weight regain. Obesity class III, s/p RYGB, c/b weight regain, long discussion, multidisciplinary approach, patient is aware that she would benefit the most from revisional bariatric surgery, she would get more weight loss, however, patient is not interested and has declined the surgical route. And would like to proceed with less invasive option such as endoscopic revision. She is not interested in AOM. Has tried topamax in the past. Insurance denied appeal, patient received letter. Completed fibroscan and will either submit new appeal or check on submitted appeal. If denied she would like to proceed with APC. We discussed procedure in details. Weight History: Pre-RYGB weight: 280 lbs (BMI 51.2). Post-RYGB ava: 160 lbs (BMI 29.3). weight: 234 lbs (BMI 42.80) Last visit weight: 216 lbs (BMI 41.9) Today's weight: 213 lbs (BMI 40.25) Recommendations: - Continue diet and lifestyle modifications - Continue to see and follow up with GI bariatric endoscopy dietitian, Trey Ceron RD - Continue to see and follow up with GI bariatric endoscopy psych, Dr. Oliveros - Continue to increase physical activity as tolerated aim for 4-5x a week of cardio and strength training exercises weekly - Patient interested and would benefit from TORe will check on or resubmit appeal if denied will proceed with APC revision - RTC in 8 weeks for follow up of medically supervised weight management program VIRTUAL VISIT I spent a total of 30 minutes during this real-time, interactive virtual clinical encounter, which was conducted virtually using HIPAA compliant videoconferencing technology. Greater than 50% of the time spent was devoted to counseling and coordinating care including review of records, pertinent lab data and studies, as well as discussing diagnostic evaluation and work up, planned therapeutic interventions and future disposition of care. This includes any additional research needed to obtain further information in formulating the plan of care of this patient. This includes counseling the patient about her disease and diagnosis, specifically: complications of bariatric surgery, weight gain, obesity class III and weight management We reviewed coronavirus precautions including avoiding public places, maintaining 6 feet of distance from other persons when in public, no sick contacts, and fastidious handwashing. Thank you for allowing me to participate in the care of your patient. If you have any questions or concerns, please feel free to contact me. Maranda Castro APRN.CNP GI Bariatric Endoscopy 04/18/2023 2:11 PM documented in this encounter [facility] 03-27-[address] - 03/27/2023 2:47 PM EST Nutrition Intervention 03/27/2023: Modify type and amount of food consumed for meals and snacks: 1. Protein: Continue to strive for 74 g protein per day. Eat protein first at all meals. Lean meats, low fat/part skim dairy products, peanut butter, eggs, beans. 2. Eat 4 small meals per day or 3 meals and 1-2 small snacks for additional protein 3. Fluids: 64 oz per day, minimum. No carbonation, no caffeine, no calories, no alcohol. 4. Vitamin/minerals: Take daily multivitamin with 200 % daily value for all vitamin/minerals plus VIt D3 3,000 IU, Vit B12 500 mcg, Iron 45 mg and calcium citrate 5526-8790 mg/day . It is okay to use combination vitamin/minerals to reduce pill volume. 5. Exercise: strive for daily activity - combine strength training and cardio for best workouts. Goal is 30 minutes 5-6x per week. 6. Practice these: Eat in this order protein first, vegetable and fruit second and whole grain carbohydrates last. * Separate eating and drinking by 30 minutes * Chew your food 20-30x per bite * Meals should last 30 minutes. Nutrition Monitoring & Evaluation: 1-2# weight loss per week Need for Follow up: 2-3 months (call our office line at [phone] option 3) documented in this encounter [facility] 03-27-2023 History of Present illness Narrative [facility] Nutrition Therapy: Virtual Consult - Re-assessment I have communicated my name and active licensure. The patient s identity and physical location were verified at the time of this visit. Either the patient or their legal medical detail representative has been informed of the risks and benefits of -- and alternatives to -- treatment through a remote evaluation and consents to proceed with the evaluation remotely. Nutrition Diagnosis: Altered Gastrointestinal Tract Function, related to, S/P bariatric surgery, as evidenced by diet recall, patient update, and surgical history. RECOMMENDED MALNUTRITION DIAGNOSIS: NO MALNUTRITION IDENTIFIED NUTRITION CARE PLAN: Nutrition Intervention 03/27/2023: Modify type and amount of food consumed for meals and snacks: 1. Protein: Continue to strive for 74 g protein per day. Eat protein first at all meals. Lean meats, low fat/part skim dairy products, peanut butter, eggs, beans. 2. Eat 4 small meals per day or 3 meals and 1-2 small snacks for additional protein 3. Fluids: 64 oz per day, minimum. No carbonation, no caffeine, no calories, no alcohol. 4. Vitamin/minerals: Take daily multivitamin with 200 % daily value for all vitamin/minerals plus VIt D3 3,000 IU, Vit B12 500 mcg, Iron 45 mg and calcium citrate 0877-2696 mg/day . It is okay to use combination vitamin/minerals to reduce pill volume. 5. Exercise: strive for daily activity - combine strength training and cardio for best workouts. Goal is 30 minutes 5-6x per week. 6. Practice these: Eat in this order protein first, vegetable and fruit second and whole grain carbohydrates last. * Separate eating and drinking by 30 minutes * Chew your food 20-30x per bite * Meals should last 30 minutes. Nutrition Monitoring & Evaluation: 1-2# weight loss per week Need for Follow up: 2-3 months (call our office line at [phone] option 3) PROGRESS: Interval History: Nutrition follow up in preparation for GI/bariatric endoscopy procedure, interested in TORe. S/p RYGB in 2003. Since last encounter patient has lost 3 lbs. Diet recall reveals continued consistent meal pattern. Meals are well-balanced with healthy plate portions. Meeting protein needs with use of protein shakes as suggested. Consuming appropriate and sufficient fluids. Taking recommended vitamins. Exercise is routine but patient reports plans to increase towards recommended goal. After session today, patient able to verbalize protein/fluid/exercise goals, recommendations for vitamin/minerals, use of protein shakes during post-procedure liquid diet. Also able to demonstrate post-procedure diet advancement/portion control using food models. Anticipate post-procedure compliance. Nutrition Intervention 02/07/23 1. Do not skip meals. 2. Use protein shake as needed 3. Use the Healthy Plate Method of portion control for lunch and dinner 4 oz lean meat (fish, chicken, pork tenderloin, turkey, seafood, eggs/cheese) 1/2 plate non starchy vegetables (salad, greens, cabbage, spinach, brussels sprouts, broccoli, carrots, celery, peppers, green beans, cauliflower) 1 cup starch/starchy vegetables (corn, peas, beans, winter squash, sweet potato, brown rice, whole grain pasta, whole grain bread products, quinoa) 4. Physical activity: continue to increase as able 5. Drink 64 ounces per day water. Fluids should follow these guidelines: No carbonation, no caffeine, no calories, no alcohol. 6. Separate eating and drinking by 30 minutes 7. Take daily multivitamin with 200 % daily value for all vitamin/minerals plus VIt D3 3,000 IU, Vit B12 500 mcg, Iron 45 mg and calcium citrate 8733-8044 mg/day . It is okay to use combination vitamin/minerals to reduce pill volume. Protein needs: 74 gm per day Actions to implement interventions: see assessment Diet History: Breakfast - low sugar and algerian yogurt with fruit (banana with fruit) and granola OR hard boiled eggs with lite guamanian muffin Snack - none OR protein bar OR protein shake (WW) Lunch - brown rice with chicken sausage and sweet potatoes, peppers, onions, black beans Snack - none Dinner - grilled chicken salad with low calorie dressing Snack - none Beverages - water (64+ oz per day), coffee (1 cup per day) Alcohol - special occasions Vitamins/Supplements - MVI, vitamin D (50,000 international unit(s) per week), iron 65 mg, calcium citrate (1200 mg per day) Activity: Activities of Daily Living: Active 50% of the day. 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 Resting Metabolic Rate: 1551 Malnutrition Screening Significant unintentional weight loss? No Eating less than 75% of usual intake for more than 2 weeks? No Potential Signs of Inflammation: no identifiable sources Nutritional status: Education Materials Provided: None this visit READINESS TO LEARN Cognitive ability: Alert and oriented Motivation to learn: Interested Family support: Unable to assess - Family not present Instruction provided to: Patient Patient learns best by: Multiple Methods Factors affecting learning: None Physical limitations affecting learning: None Likelihood of Adherence: Moderate Referred by: Dr. Thomas MNT Billing Type: Re-assess/15 min 1 unit SIGNATURE: Trey Ceron RD PATIENT NAME: Melissa Nichols DATE: 03/27/2023 TIME: 7:56 AM PAGER: N/A documented in this encounter [facility] 03-25-2023 History of Present illness Narrative Patient fasting for 3 hours:Yes Fibroscan was performed on March 25, 2023, by Michell Boss RN and results are interpreted by Idania Mcdowell Diagnosis: Fatty liver Please refer to get images report for individual readings Number of readings: 10 IQR %: 16% E (kpa): 5.7 CAP: 319 Impression The reading was adequate. FS=5.7 kPA. The CAP score is 319 and corresponds to steatosis grade of S3. This reading corresponds: A 97% chance of stage 0-2 fibrosis A 3% chance of stage 3-4 fibrosis (advanced fibrosis) A <1% chance of stage 4 fibrosis (cirrhosis).A kPa >20 indicates a high likelihood of stage 4 fibrosis/cirrhosis, consider further testing to confirm. Idania Mcdowell, 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.REPORT CLERK NAFLD Fibroscan Fibrosis Risk <7 kPA = F0-F2 97%, F3+F4 3%, F4 <1% <10 kPA = F0-F2 91%, F3+F4 9%, F4 1.3% 10-15 kPA = F0-F2 56%, F3+F4 43%, F4 14% >15 kPA = F0-F2 26%, F3+F4 74%, F4 46% Grade CAP value up to 237 dB/M corresponds to S0 (< 10 % Fat) CAP value between (238 - 258 dB/M) corresponds to S1 (>/= 11 % Fat) CAP value between (259 - 289 dB/M) corresponds to S2 (>/= 33 % Fat) CAP value > 290dB/M corresponds to S3 (>/= 67 % Fat) stage 0 ( S0:< 10 % steatosis) stage 1 (>/= S1: 11%-33% steatosis) stage 2 (>/= S2: 34%-66% steatosis) stage 3 (>/= S3: > 66% steatosis) Reference Ankit Y, Carl Q, Pham T, Shaye J, Pham H, Christiano T. Controlled attenuation parameter for assessment of hepatic steatosis grades: a diagnostic meta-analysis. Int J Clin Exp Med. 2015 Feb 23;8(10):75056-13. PMID: 86208607; PMCID: [id number]. David Mcdaniel, Kwesi AVERY, Ruma M, Yuli F, Milo J, Farhana O, Lionel F, Олге M, Lacho G, Chris A, Broelmain E, Mele L, Emanuel G, Santiago A, Angola U, Carrillo S, Oleksandr P, Maro V, de Celeste V, Sarah M, Malvin EA. Refining the Baveno elastography criteria for the definition of compensated advanced chronic liver disease. J Hepatol. 2020;74(5):4728-3242. doi: 10.1016/j.jhep.2020.11.050. Epub 2019Apr 19. PMID: 58119689. documented in this encounter [facility] 02-20-2023 History of Present illness Narrative Images from the original note were not included. Demetri Arnold DO [address] [place] [address] [place] [id number] GI/Bariatric Endoscopy Clinic Visit Gastroenterology, Hepatology, and Nutrition Department ?[facility] ? 02/20/2023 ? The patient encounter is a virtual/telephone visit today, 02/20/2023, in lieu of an office visit due to the current COVID-19 pandemic crisis and need for social distancing. Reason for Visit: Complications of bariatric procedure s/p RYGB, weight regain, obesity class III and weight management Patient is: Established patient Location of Provider: Hospital Location of Patient: Home Consent for virtual care, including informing the patient that insurance will be billed, and that in-person care is available in case of emergencies or as needed otherwise, was discussed at the time of scheduling. Dear Demetri Arnold, DO, ? I had the pleasure of seeing Melissa Nichols in the [facility] GI/Bariatric Endoscopy Clinic for Complications of bariatric procedure s/p RYGB, weight regain, weight management Interval: Since last visit, she continues to work towards weight loss goal. Weight today is 216 lbs. She has tried topamax, she is not interested in AOM. She is taking recommended MVI and vit D. Prior History/ note from initial VV 03/06/2022, Maranda Castro REPORT CLERK: Melissa Nichols has a history of obesity since childhood. Comorbidities are: obesity class III, vitamin D deficiency, complex endometrial hyperplasia, anemia, degenerative joint disease, arthritis, positive JESSICA (nodules on joints f/u with Bobbin Winder Dr. Woo) and hypothyroid. Melissa Nichols underwent RYGB at [place] with Dr. Read on 04/2004. Barretts Esophagus prior to RYGB. no complications post RYGB. She denies having any reflux or heartburn. 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 The patient then experienced weight regain in 2019 and now weighs 231 lbs. The patient is here today complaining of the ability to eat larger portions and has satiety that does not last. Weight gain/regain and Obesity disease: The patient reports could eat several high caloric meals and beverages per day despite not feeling very hungry. Also not feeling satiety or full after eating several meals. Reports craving to eat throughout the day. This has resulted in weight gain/regain and worsening of obesity. Patient has tried to control the diet and be able to lose weight up to 20 lbs. Unfortunately, the patient would subsequently experience rebound weight regain following lifestyle modification interventions (diet + exercise). Patient has tried increasing physical activity or exercise, Weight Watcher, Fast metabolism diet (eat 4-6 small meals a day), Keto diet, high protein/low carb sugar diets, Intermittent fasting, Meal replacement plan, multiple dietitian healthy diets (low carbs, low fat, high protein diets), behavioral therapy and [employer] phone shen. Patient has tried medications (Topamax, Phen fen) and is following obesity medicine. She is not interested in revisional bariatric surgery. Patient exercises 4 times a week for 20-30 min every time: walking, chair yoga, treadmil, bike.Unfortunately, despite all the above interventions, patient's weight problem has started to severely affect patient's lifestyle and health. Specifically, patient has been experiencing ACL/MCL Repair from torn meniscus, also broke her ankle in 2021 which is exacerbated after walking 0.5-1 miles and this is now impairing the patient from been more physically active. Melissa Nichols was seen by primary care, orthopedics, bariatric specialities who recommended to lose weight and weight loss interventions. 24 hrs Diet recall:Dyn system Breakfast: scrambled eggs with 1/2 lite guamanian muffin and watermelon OR protein oatmeal/homemade oatmeal. Snack: algerian yogurt Lunch: salad with left over chicken Snack: sometimes string cheese Dinner: hello fresh lettuce wrap Snack: 2 cups of 35 lauren popcorn OR SF popsicle Wakes up to eat: no Current Exercise Activity: Walking, aerobic bands and chair yoga limited due to time and joint pains. Weight History: Pre-RYGB weight: 280 lbs (BMI 51.2). Post-RYGB ava: 160 lbs (BMI 29.3). LMP 09/03/2013 Goal weight BMI < 27: 162.3 Goal weight BMI < 30: 180.3 Last 5 Encounter Wt Readings: Date: Wt: 02/25/2022 106.6 kg (235 lb) 02/15/2022 106.6 kg (235 lb) 12/07/2021 108 kg (238 lb) 12/06/2021 108.4 kg (239 lb) 12/04/2020 101.6 kg (224 lb) Risk factors: Tobacco use: No EtOH intake: Rare social NSAIDs: No H. Pylori: No (EGD 2003 prior showed barretts repeat EGD normal) FH:No, brother recently diagnosed with rectal cancer and father with liver and pancreatic ca PH: No Relevant Medications: Phen fin past Topamax SE of nausea, stopped Vitamins/Minerals Supplements: - Vitamin D3 - Calcium 1200 mg - Multivitamin Relevant Bariatric Procedures/Surgeries Bariatric Surgeon: J[facility] at [facility] Bariatric Surgery: 2003 Abisai-en-Y Gastric Bypass (RYGB Past Medical History: PAST MEDICAL HISTORY Diagnosis Date Broken ankle Right ankle no surgery Hypothyroidism Melanoma (HCC) Pneumonia 11/25/2018 Past Surgical History: PAST SURGICAL HISTORY Procedure Laterality Date DILATION & CURETTAGE DX&/THER NONOBSTETRIC 08/05/2013 Polypectomy EGD W/O BRSH SPEC VARICIES INJ 2022 ENDOVENOUS LASER, 1ST VEIN 07/22, 12/22, 03/24 [address]SS[address] Linton GASTRIC BYPASS HX 2005 HYSTERECTOMY HX KNEE SURGERY HX Right 11/10/2019 ACL/MCL/Miniscus LIG/TRNSXJ FLP TUBE ABDL/VAG APPR UNI/BI 2009 MELANOMA OF SKIN BIOPSY SYN RPT MELANOMA OF SKIN EXCISION SYN RPT REPAIR UMBILICAL HERNIA 2002, 2003 mesh SKIN BIOPSY HX Medications: Current Outpatient Medications Medication Sig Dispense Refill calcium citrate/vitamin D3 (CALCIUM CITRATE + D ORAL) Take 1,200 mg by mouth once daily. ergocalciferol, vitamin D2, (DRISDOL) 50,000 unit capsule Take 1 capsule by mouth once each week. ferrous sulfate 325 mg (65 mg iron) tablet Take 65 mg by mouth twice daily. hydroxychloroquine (PLAQUENIL) 200 mg tablet Take 200 mg by mouth once daily. levothyroxine (SYNTHROID) 100 mcg tablet Take 1 tablet by mouth once daily. Multivitamin capsule Take 1 capsule by mouth once daily. No current facility-administered medications for this visit. Allergies: ALLERGIES No Known Allergies Family History: No known colon cancer, polyps, IBD, celiac disease, pancreatic disease, or liver disease. FAMILY HISTORY Problem Relation Age of Onset Stroke Mother 42 DVT Mother other (CHF) Mother other (Bipolar Disorder) Mother dx after stroke Alcohol/Drug Father alcohol Diabetes Father Hypertension Father Cancer Father liver and pancreatic Hypertension Sister DVT Sister Rectal Cancer Brother COPD Brother Alcohol abuse Brother Hypertension Maternal Grandmother Hyperlipidemia Maternal Grandmother COPD Maternal Grandmother Diabetes Paternal Grandmother Kidney failure Paternal Grandmother Diabetes Paternal Grandfather No Known Problems Daughter No Known Problems Daughter ? Social History: Social History Tobacco Use Smoking status: Never Smokeless tobacco: Never Vaping Use Vaping Use: Never used Substance Use Topics Alcohol use: No Drug use: No Tobacco: Tobacco Use: Never Alcohol: Alcohol Use: No Illicits: Drug Use: No Review of Systems: Review of Systems Constitutional: Negative for chills and fever. Respiratory: Negative for cough. Cardiovascular: Negative for chest pain. Gastrointestinal: Negative for abdominal pain, blood in stool, constipation, diarrhea, nausea and vomiting. Constitutional: no fevers, chills, night sweats Cardiovascular: no chest pain Pulmonary: no shortness of breath Eyes: no visual changes or eye irritation Musculoskeletal: no myalgias or arthralgias Skin: no new or changing skin lesions, rashes or pruritis 12 point ROS otherwise negative. Physical Examination: Ht 157.5 cm (5' 2) Wt 98 kg (216 lb) LMP 09/03/2013 BMI 39.51 kg/m Physical Exam virtual/videocall encounter: Patient reported height 5'2 and weight 216 lbs LMP 09/03/2013 General - Normal, healthy, cooperative, in no acute distress Able to interact verbally by video conference Psych - ORIENTATION: normal to time place, person and situation Mood/Affect: AFFECT AND MOOD: Normal Head/Neuro - Normal size and shape Facial appearance normal Pulmonary - respiratory effort normal Cardiovascular - patient describes extremities normal, warm, no cyanosis,no clubbing and no edema Abdominal - Areas of pain/tenderness: denies Skin - abnormal lesions not visualized Motor - patient seen sitting with Normal appearing strength and coordination ? Laboratory Data: Lab Results Component Value Date [id number] 02/22/2022 TSH Date Value Ref Range Status 10/13/2009 1.75 0.34 - 5.60 UIU/ML Final Comment: TSH: ULTRASENSITIVE METHOD- LOWER DETECTION LIMIT = 0.01 UIU/ML WBC (k/uL) Date Value 06/30/2019 6.05 RBC (m/uL) Date Value 06/30/2019 4.02 Hemoglobin (g/dL) Date Value 06/30/2019 12.3 Hematocrit (%) Date Value 06/30/2019 37.9 MCV (fL) Date Value 06/30/2019 94.3 MCH (pG) Date Value 06/30/2019 30.6 MCHC (g/dL) Date Value 06/30/2019 32.5 RDW-CV (%) Date Value 06/30/2019 12.9 Platelet Count (k/uL) Date Value 06/30/2019 168 MPV (fL) Date Value 06/30/2019 9.2 Potassium (mmol/L) Date Value 06/30/2019 3.3 Sodium (mmol/L) Date Value 06/30/2019 137 Creatinine (mg/dL) Date Value 06/30/2019 0.79 BUN (mg/dL) Date Value 06/30/2019 8 Glucose (mg/dL) Date Value 06/30/2019 138 TSH (UIU/ML) Date Value 10/13/2009 1.75 Glucose (mg/dL) Date Value 06/30/2019 138 (H) BUN (mg/dL) Date Value 06/30/2019 8 Creatinine (mg/dL) Date Value 06/30/2019 0.79 Sodium (mmol/L) Date Value 06/30/2019 137 Potassium (mmol/L) Date Value 06/30/2019 3.3 (L) Chloride (mmol/L) Date Value 06/30/2019 100 CO2 (mmol/L) Date Value 06/30/2019 24 Protein, Total (g/dL) Date Value 06/30/2019 7.1 Albumin (g/dL) Date Value 06/30/2019 4.0 Calcium (mg/dL) Date Value 06/30/2019 9.1 Alkaline Phosphatase (U/L) Date Value 06/30/2019 69 Bilirubin, Total (mg/dL) Date Value 06/30/2019 0.7 AST (U/L) Date Value 06/30/2019 21 ALT (U/L) Date Value 06/30/2019 24 Glucose (mg/dL) Date Value 06/30/2019 138 Creatinine (mg/dL) Date Value 06/30/2019 0.79 Potassium (mmol/L) Date Value 06/30/2019 3.3 AST (U/L) Date Value 06/30/2019 21 ALT (U/L) Date Value 06/30/2019 24 Hemoglobin A1C (%) Date Value 02/22/2022 5.4 Cholesterol, Total (MG/DL) Date Value 10/13/2009 173 HDL Cholesterol (MG/DL) Date Value 10/13/2009 61 ] LDL Cholesterol (MG/DL) Date Value 10/13/2009 92 Triglyceride (MG/DL) Date Value 10/13/2009 101 Imagin03/27/2007 CT ABD WO CONTRAST FINDINGS: The liver and spleen are normal as are both kidneys. There are postsurgical changes in the upper abdomen consistent with previous gastric bypass surgery. It should however be noted that there is a paucity of contrast in the region of the stomach and upper abdomen. I am suspicious of some periaortic adenopathy but this could also represent bowel In the lower cuts located at midline is a small ventral hernia and soft tissue density in the anterior abdomen which I believe is related to the surgery if there has been a midline incision. IMPRESSION: Postoperative changes with small ventral hernia and soft tissue prominence in the midline 2. Possible periaortic adenopathy. 3. I would doubt that the findings account for the right upper quadrant mass that is clinically suspected 12/08/2006 US RUQ ABD IMPRESSION: A single focus of comet-tail artifact originating from the nondependent gallbladder wall suggesting adenomyomatosis. Endoscopy: EGD 07/05/2022: Findings: The Z-line was irregular and was found 35 cm from the incisors. Biopsies were taken with a cold forceps for histology. The examined esophagus was otherwise normal. The GE junction and hiatus were at 35 cm from incisors. Evidence of a Abisai-en-Y gastric bypass (RYGB) was found. The gastrojejunal anastomosis (GJA) was characterized by normal appearing mucosa. No ulcers, erosion, sutures or zeke. The GJA outlet was dilated 25 mm diameter and was traversed. The gastric pouch extended from 35 cm to 40 cm from the incisors. No gastro-gastric fistula was found. The jejunum was normal at 60 cm (both Abisai/alimentary and blind limbs). No food or debris in the blind limb. Impression: - Z-line irregular, 35 cm from the incisors. Biopsied. 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 - Normal examined jejunum. Pathology: FINAL DIAGNOSIS A. Esophagus, lower, biopsy: - Squamous and glandular mucosa with increased chronic inflammation. - Negative for intestinal metaplasia and dysplasia. Assessment and Recommendations: ??52 year old female with history as per HPI, obesity class III, vitamin D deficiency, complex endometrial hyperplasia, anemia, degenerative joint disease, arthritis, positive JESSICA (follows rheum.) and hypothyroid presenting to GI/Bariatric Endoscopy clinic for evaluation of complications of bariatric surgery s/p RYGB, and weight regain. Obesity class III, s/p RYGB, c/b weight regain, long discussion, multidisciplinary approach, patient is aware that she would benefit the most from revisional bariatric surgery, she would get more weight loss, however, patient is not interested and has declined the surgical route. And would like to proceed with less invasive option such as endoscopic revision. She is not interested in AOM. Has tried topamax in the past. Insurance denied appeal, patient received letter. We discussed looking into another appeal or considering APC revision. Patient would like to further consider APC option. Weight History: Pre-RYGB weight: 280 lbs (BMI 51.2). Post-RYGB ava: 160 lbs (BMI 29.3). weight: 234 lbs (BMI 42.80) Last visit weight: 229 lbs (BMI 41.9) Today's weight: 216 lbs (BMI 39.51) Recommendations: - Schedule fibroscan must be fasting for 3 hrs prior can call [phone] to schedule - Continue diet and lifestyle modifications - See GI bariatric endoscopy dietitian, Trey Ceron RD as scheduled - See GI bariatric endoscopy psych, Dr. Oliveros as scheduled - Increase physical activity as tolerated aim for 2-3x a week of cardio and strength training exercises weekly - RTC in 8-12 weeks for follow up of medically supervised weight management program VIRTUAL VISIT I spent a total of 30 minutes during this real-time, interactive virtual clinical encounter, which was conducted virtually using HIPAA compliant videoconferencing technology. Greater than 50% of the time spent was devoted to counseling and coordinating care including review of records, pertinent lab data and studies, as well as discussing diagnostic evaluation and work up, planned therapeutic interventions and future disposition of care. This includes any additional research needed to obtain further information in formulating the plan of care of this patient. This includes counseling the patient about her disease and diagnosis, specifically: complications of bariatric surgery, weight gain, obesity class III and weight management We reviewed coronavirus precautions including avoiding public places, maintaining 6 feet of distance from other persons when in public, no sick contacts, and fastidious handwashing. Thank you for allowing me to participate in the care of your patient. If you have any questions or concerns, please feel free to contact me. Maranda Castro APRN.CNP GI Bariatric Endoscopy 02/20/2023 1:30 PM documented in this encounter [facility] 12-26-2022 History of Present illness Narrative Images from the original note were not included. Demetri Arnold DO [address] [facility] [place] [id number] GI/Bariatric Endoscopy Clinic Visit Gastroenterology, Hepatology, and Nutrition Department ?[facility] ? 12/26/2022 ? The patient encounter is a virtual/telephone visit today, 12/26/2022, in lieu of an office visit due to the current COVID-19 pandemic crisis and need for social distancing. Reason for Visit: Complications of bariatric procedure s/p RYGB, weight regain, obesity class III and weight management Patient is: Established patient Location of Provider: Hospital Location of Patient: Home Consent for virtual care, including informing the patient that insurance will be billed, and that in-person care is available in case of emergencies or as needed otherwise, was discussed at the time of scheduling. Dear Demetri Arnold DO, ? I had the pleasure of seeing Melissa Nichols in the [facility] GI/Bariatric Endoscopy Clinic for Complications of bariatric procedure s/p RYGB, weight regain, weight management Interval: Since last visit she has joined [place] on shen. Weight today is 229 lbs. She has increased protein with shakes protein bar. Walking however limited to joint pain, she experiences pain after being on feet or standing for long periods. 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 She has tried AOM and she is not interested in AOM at this time. She is very interested in TORe procedure, pending appeal. Prior History/ note from initial VV 03/06/2022, Maranda Castro CNP: Melissa Nichols has a history of obesity since childhood. Comorbidities are: obesity class III, vitamin D deficiency, complex endometrial hyperplasia, anemia, degenerative joint disease, arthritis, positive JESSICA (nodules on joints f/u with Bobbin Winder Dr. Woo) and hypothyroid. Melissa Nichols underwent RYGB at [place] with Dr. Read on 04/2004. Barretts Esophagus prior to RYGB. no complications post RYGB. She denies having any reflux or heartburn. 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 The patient then experienced weight regain in 2019 and now weighs 231 lbs. The patient is here today complaining of the ability to eat larger portions and has satiety that does not last. Weight gain/regain and Obesity disease: The patient reports could eat several high caloric meals and beverages per day despite not feeling very hungry. Also not feeling satiety or full after eating several meals. Reports craving to eat throughout the day. This has resulted in weight gain/regain and worsening of obesity. Patient has tried to control the diet and be able to lose weight up to 20 lbs. Unfortunately, the patient would subsequently experience rebound weight regain following lifestyle modification interventions (diet + exercise). Patient has tried increasing physical activity or exercise, Weight Watcher, Fast metabolism diet (eat 4-6 small meals a day), Keto diet, high protein/low carb sugar diets, Intermittent fasting, Meal replacement plan, multiple dietitian healthy diets (low carbs, low fat, high protein diets), behavioral therapy and baritastic phone shen. Patient has tried medications (Topamax, Phen fen) and is following obesity medicine. She is not interested in revisional bariatric surgery. Patient exercises 4 times a week for 20-30 min every time: walking, chair yoga, treadmil, bike.Unfortunately, despite all the above interventions, patient's weight problem has started to severely affect patient's lifestyle and health. Specifically, patient has been experiencing ACL/MCL Repair from torn meniscus, also broke her ankle in 2021 which is exacerbated after walking 0.5-1 miles and this is now impairing the patient from been more physically active. Melissa Nichols was seen by primary care, orthopedics, bariatric specialities who recommended to lose weight and weight loss interventions. 24 hrs Diet recall: Breakfast: scrambled eggs with 1/2 lite guamanian muffin and watermelon OR protein oatmeal/homemade oatmeal. Snack: algerian yogurt Lunch: salad with left over chicken Snack: sometimes string cheese Dinner: hello fresh lettuce wrap Snack: 2 cups of 35 lauren popcorn OR SF popsicle Wakes up to eat: no Current Exercise Activity: Walking Weight History: Pre-RYGB weight: 280 lbs (BMI 51.2). Post-RYGB ava: 160 lbs (BMI 29.3). Ht 157.5 cm (5' 2) Wt 103.9 kg (229 lb) LMP 09/03/2013 BMI 41.88 kg/m LMP 09/03/2013 Goal weight BMI < 27: 162.3 Goal weight BMI < 30: 180.3 Last 5 Encounter Wt Readings: Date: Wt: 02/25/2022 106.6 kg (235 lb) 02/15/2022 106.6 kg (235 lb) 12/07/2021 108 kg (238 lb) 12/06/2021 108.4 kg (239 lb) 12/04/2020 101.6 kg (224 lb) Risk factors: Tobacco use: No EtOH intake: Rare social NSAIDs: No H. Pylori: No (EGD 2003 prior showed barretts repeat EGD normal) FH:No, brother recently diagnosed with rectal cancer and father with liver and pancreatic ca PH: No Relevant Medications: Phen fin past Topamax SE of nausea, stopped Vitamins/Minerals Supplements: - Vitamin D3 - Calcium 1200 mg - Multivitamin Relevant Bariatric Procedures/Surgeries Bariatric Surgeon: J[facility]k at [facility] Bariatric Surgery: 2003 Abisai-en-Y Gastric Bypass (RYGB Past Medical History: PAST MEDICAL HISTORY Diagnosis Date Broken ankle Right ankle no surgery Hypothyroidism Melanoma (HCC) Pneumonia 11/25/2018 Past Surgical History: PAST SURGICAL HISTORY Procedure Laterality Date DILATION & CURETTAGE DX&/THER NONOBSTETRIC 08/05/2013 Polypectomy EGD W/O BRSH SPEC VARICIES INJ 2022 ENDOVENOUS LASER, 1ST VEIN 07/22, 12/22, 03/24 [address]SS[address] Linton GASTRIC BYPASS HX 2005 HYSTERECTOMY HX KNEE SURGERY HX Right 11/10/2019 ACL/MCL/Miniscus LIG/TRNSXJ FLP TUBE ABDL/VAG APPR UNI/BI 2010 MELANOMA OF SKIN BIOPSY SYN RPT MELANOMA OF SKIN EXCISION SYN RPT REPAIR UMBILICAL HERNIA 2002, 2003 mesh SKIN BIOPSY HX Medications: Current Outpatient Medications Medication Sig Dispense Refill calcium citrate/vitamin D3 (CALCIUM CITRATE + D ORAL) Take 1,200 mg by mouth once daily. hydroxychloroquine (PLAQUENIL) 200 mg tablet Take 200 mg by mouth once daily. ergocalciferol, vitamin D2, (DRISDOL) 50,000 unit capsule Take 1 capsule by mouth once each week. ferrous sulfate 325 mg (65 mg iron) tablet Take 65 mg by mouth twice daily. levothyroxine (SYNTHROID) 100 mcg tablet Take 1 tablet by mouth once daily. Multivitamin capsule Take 1 capsule by mouth once daily. No current facility-administered medications for this visit. Allergies: ALLERGIES No Known Allergies Family History: No known colon cancer, polyps, IBD, celiac disease, pancreatic disease, or liver disease. FAMILY HISTORY Problem Relation Age of Onset Stroke Mother 42 DVT Mother other (CHF) Mother other (Bipolar Disorder) Mother dx after stroke Alcohol/Drug Father alcohol Diabetes Father Hypertension Father Cancer Father liver and pancreatic Hypertension Sister DVT Sister Rectal Cancer Brother COPD Brother Alcohol abuse Brother Hypertension Maternal Grandmother Hyperlipidemia Maternal Grandmother COPD Maternal Grandmother Diabetes Paternal Grandmother Kidney failure Paternal Grandmother Diabetes Paternal Grandfather No Known Problems Daughter No Known Problems Daughter ? Social History: Social History Tobacco Use Smoking status: Never Smokeless tobacco: Never Vaping Use Vaping Use: Never used Substance Use Topics Alcohol use: No Drug use: No Tobacco: Tobacco Use: Never Alcohol: Alcohol Use: No Illicits: Drug Use: No Review of Systems: Review of Systems Constitutional: no fevers, chills, night sweats, or weight loss Cardiovascular: no chest pain Pulmonary: no shortness of breath Eyes: no visual changes or eye irritation Musculoskeletal: no myalgias or arthralgias Skin: no new or changing skin lesions, rashes or pruritis 12 point ROS otherwise negative. Physical Examination: Ht 157.5 cm (5' 2) Wt 103.9 kg (229 lb) LMP 09/03/2013 BMI 41.88 kg/m Physical Exam virtual/videocall encounter: Patient reported height 5'2 and weight 229 lbs LMP 09/03/2013 General - Normal, healthy, cooperative, in no acute distress Able to interact verbally by video conference Psych - ORIENTATION: normal to time place, person and situation Mood/Affect: AFFECT AND MOOD: Normal Head/Neuro - Normal size and shape Facial appearance normal Pulmonary - respiratory effort normal Cardiovascular - patient describes extremities normal, warm, no cyanosis,no clubbing and no edema Abdominal - Areas of pain/tenderness: denies Skin - abnormal lesions not visualized Motor - patient seen sitting with Normal appearing strength and coordination ? Laboratory Data: Lab Results Component Value Date [id number] [id number] 02/22/2022 TSH Date Value Ref Range Status 10/13/2009 1.75 0.34 - 5.60 UIU/ML Final Comment: TSH: ULTRASENSITIVE METHOD- LOWER DETECTION LIMIT = 0.01 UIU/ML WBC (k/uL) Date Value 06/30/2019 6.05 RBC (m/uL) Date Value 06/30/2019 4.02 Hemoglobin (g/dL) Date Value 06/30/2019 12.3 Hematocrit (%) Date Value 06/30/2019 37.9 MCV (fL) Date Value 06/30/2019 94.3 MCH (pG) Date Value 06/30/2019 30.6 MCHC (g/dL) Date Value 06/30/2019 32.5 RDW-CV (%) Date Value 06/30/2019 12.9 Platelet Count (k/uL) Date Value 06/30/2019 168 MPV (fL) Date Value 06/30/2019 9.2 Potassium (mmol/L) Date Value 06/30/2019 3.3 Sodium (mmol/L) Date Value 06/30/2019 137 Creatinine (mg/dL) Date Value 06/30/2019 0.79 BUN (mg/dL) Date Value 06/30/2019 8 Glucose (mg/dL) Date Value 06/30/2019 138 TSH (UIU/ML) Date Value 10/13/2009 1.75 Glucose (mg/dL) Date Value 06/30/2019 138 (H) BUN (mg/dL) Date Value 06/30/2019 8 Creatinine (mg/dL) Date Value 06/30/2019 0.79 Sodium (mmol/L) Date Value 06/30/2019 137 Potassium (mmol/L) Date Value 06/30/2019 3.3 (L) Chloride (mmol/L) Date Value 06/30/2019 100 CO2 (mmol/L) Date Value 06/30/2019 24 Protein, Total (g/dL) Date Value 06/30/2019 7.1 Albumin (g/dL) Date Value 06/30/2019 4.0 Calcium (mg/dL) Date Value 06/30/2019 9.1 Alkaline Phosphatase (U/L) Date Value 06/30/2019 69 Bilirubin, Total (mg/dL) Date Value 06/30/2019 0.7 AST (U/L) Date Value 06/30/2019 21 ALT (U/L) Date Value 06/30/2019 24 Glucose (mg/dL) Date Value 06/30/2019 138 Creatinine (mg/dL) Date Value 06/30/2019 0.79 Potassium (mmol/L) Date Value 06/30/2019 3.3 AST (U/L) Date Value 06/30/2019 21 ALT (U/L) Date Value 06/30/2019 24 Hemoglobin A1C (%) Date Value 02/22/2022 5.4 Cholesterol, Total (MG/DL) Date Value 10/13/2009 173 HDL Cholesterol (MG/DL) Date Value 10/13/2009 61 ] LDL Cholesterol (MG/DL) Date Value 10/13/2009 92 Triglyceride (MG/DL) Date Value 10/13/2009 101 Imagin03/27/2007 CT ABD WO CONTRAST FINDINGS: The liver and spleen are normal as are both kidneys. There are postsurgical changes in the upper abdomen consistent with previous gastric bypass surgery. It should however be noted that there is a paucity of contrast in the region of the stomach and upper abdomen. I am suspicious of some periaortic adenopathy but this could also represent bowel In the lower cuts located at midline is a small ventral hernia and soft tissue density in the anterior abdomen which I believe is related to the surgery if there has been a midline incision. IMPRESSION: Postoperative changes with small ventral hernia and soft tissue prominence in the midline 2. Possible periaortic adenopathy. 3. I would doubt that the findings account for the right upper quadrant mass that is clinically suspected 12/08/2006 US RUQ ABD IMPRESSION: A single focus of comet-tail artifact originating from the nondependent gallbladder wall suggesting adenomyomatosis. Endoscopy: EGD 07/05/2022: Findings: The Z-line was irregular and was found 35 cm from the incisors. Biopsies were taken with a cold forceps for histology. The examined esophagus was otherwise normal. The GE junction and hiatus were at 35 cm from incisors. Evidence of a Abisai-en-Y gastric bypass (RYGB) was found. The gastrojejunal anastomosis (GJA) was characterized by normal appearing mucosa. No ulcers, erosion, sutures or zeke. The GJA outlet was dilated 25 mm diameter and was traversed. The gastric pouch extended from 35 cm to 40 cm from the incisors. No gastro-gastric fistula was found. The jejunum was normal at 60 cm (both Abisai/alimentary and blind limbs). No food or debris in the blind limb. Impression: - Z-line irregular, 35 cm from the incisors. Biopsied. 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 - Normal examined jejunum. Pathology: FINAL DIAGNOSIS A. Esophagus, lower, biopsy: - Squamous and glandular mucosa with increased chronic inflammation. - Negative for intestinal metaplasia and dysplasia. Assessment and Recommendations: ??52 year old female with history as per HPI, obesity class III, vitamin D deficiency, complex endometrial hyperplasia, anemia, degenerative joint disease, arthritis, positive JESSICA (follows rheum.) and hypothyroid presenting to GI/Bariatric Endoscopy clinic for evaluation of complications of bariatric surgery s/p RYGB, and weight regain. Patient was diagnosed with barretts esophagus (patient unaware of any treatment) on EGD done in 2003 prior to bariatric surgery, she stated follow EGD's were normal. Obesity class III, s/p RYGB, c/b weight regain, long discussion, multidisciplinary approach, patient is aware that she would benefit the most from revisional bariatric surgery, she would get more weight loss, however, patient is not interested and has declined the surgical route. And would like to proceed with less invasive option such as endoscopic revision. Procedure discussed in detail. Will proceed with scheduling endoscopic revision. Weight History: Pre-RYGB weight: 280 lbs (BMI 51.2). Post-RYGB ava: 160 lbs (BMI 29.3). Today weight: 234 lbs (BMI 42.80) Recommendations: - Continue diet and lifestyle modifications - See GI bariatric endoscopy dietitian, Trey Ceron RD as scheduled - Schedule appt with our GI bariatric endoscopy psych, Dr. Oliveros - Increase physical activity as tolerated aim for 2-3x a week of cardio and strength training exercises weekly - RTC in 8-12 weeks for follow up of medically supervised weight management program VIRTUAL VISIT I spent a total of 30 minutes during this real-time, interactive virtual clinical encounter, which was conducted virtually using HIPAA compliant videoconferencing technology. Greater than 50% of the time spent was devoted to counseling and coordinating care including review of records, pertinent lab data and studies, as well as discussing diagnostic evaluation and work up, planned therapeutic interventions and future disposition of care. This includes any additional research needed to obtain further information in formulating the plan of care of this patient. This includes counseling the patient about her disease and diagnosis, specifically: complications of bariatric surgery, weight gain, obesity class III and weight management We reviewed coronavirus precautions including avoiding public places, maintaining 6 feet of distance from other persons when in public, no sick contacts, and fastidious handwashing. Thank you for allowing me to participate in the care of your patient. If you have any questions or concerns, please feel free to contact me. Maranda Castro APRN.CNP GI Bariatric Endoscopy 12/26/2022 3:36 PM documented in this encounter [facility] 12-10-2022 Nurse Note REVIEW OF SYSTEMS: General: The patient denies fatigue, denies weight loss, notes weight gain, denies feeling hot, and denies feelings of cold. Eyes: The patient denies glaucoma, denies eye injury/surgery, wears glasses or contacts. Ear/Nose/Throat: The patient denies allergies, denies hayfever, denies ear infections, and denies bloody noses. Cardiovascular: The patient denies chest pain, denies heart disease, denies high blood pressure,denies cardiac stent, denies prior heart attack, denies irregular heart beat, denies high cholesterol, denies poor circulation, denies heart failure, other cardiac issues, denies claudication, denies cold feet, denies peripheral arterial stent. Respiratory: The patient denies tuberculosis, denies pneumonia, denies frequent cough, denies pulmonary embolism, denies shortness of breath, and denies coughing up blood. Gastrointestinal: The patient denies difficulty swallowing, denies acid reflux, denies ulcers, denies vomiting, denies jaundice/hepatitis, denies gallbladder problems, denies black or tarry stools, denies hemorrhoids, denies bleeding from rectum, denies diverticulitis, denies constipation, denies diarrhea, denies loss of stool control, and notes hernias. Kidney/Bladder: The patient denies kidney stones, denies urine infections, and denies bloody urine. Skin: The patient notes a history of skin cancer, denies bleeding/changing moles, and denies a history of skin rash. Neurologic: The patient denies a history of epilepsy/convulsions, denies headaches, denies head/spinal injuries, and denies stroke/TIA. Psychiatric: The patient denies psychiatric medications, denies depression, and denies voices, denies substance abuse. Endocrine: The patient notes thyroid disorders, denies diabetes, and denies hormonal problems. Hematologic: The patient denies a history of bruising, denies bleeding, and notes anemia, denies blood clots. Infections: The patient denies a history of measles and mumps, denies rheumatic fever, and denies sexually transmitted diseases. Musculoskeletal: The patient notes back pain/injury, denies back problems, denies sciatica, notes knee/foot trouble, denies arthritis, or denies gout. When was patient's last Mammogram screening? 12/2021 Last Colonoscopy: never Leydi Anders LPN documented in this encounter [facility] 12-10-2022 History of Present illness Narrative HISTORY AND PHYSICAL Melissa Mcdaniel Magdalena 1970 REFERRING PHYSICIAN: Ana M Sotelo APRN.REPORT CLERK CHIEF COMPLAINT: No chief complaint on file. HPI: The patient is a 52 year old female referred for endoscopy. Melissa notes no colon complaints. Patient denies any change in bowel habits, weight changes, blood in stools, black tarry stools or abdominal pain. NOTES family history of rectal cancer. The patient notes no upper GI complaints. Melissa has not undergone prior endoscopy. PAST MEDICAL HISTORY Diagnosis Date Broken ankle Right ankle no surgery Hypothyroidism Melanoma (HCC) Pneumonia 11/25/2018 PAST SURGICAL HISTORY Procedure Laterality Date DILATION & CURETTAGE DX&/THER NONOBSTETRIC 08/05/13 Polypectomy ENDOVENOUS LASER, 1ST VEIN 07/22, 12/22, 03/24 [address]SS[address] Linton GASTRIC BYPASS HX 2005 HYSTERECTOMY HX KNEE SURGERY HX Right 11/10/2019 ACL/MCL/Miniscus LIG/TRNSXJ FLP TUBE ABDL/VAG APPR UNI/BI 2010 MELANOMA OF SKIN BIOPSY SYN RPT MELANOMA OF SKIN EXCISION SYN RPT REPAIR UMBILICAL HERNIA 2002, 2003 mesh Current Outpatient Medications Medication Sig calcium citrate/vitamin D3 (CALCIUM CITRATE + D ORAL) Take 1,200 mg by mouth once daily. hydroxychloroquine (PLAQUENIL) 200 mg tablet Take 300 mg by mouth once daily. ergocalciferol, vitamin D2, (DRISDOL) 50,000 unit capsule Take 1 capsule by mouth once each week. ferrous sulfate 325 mg (65 mg iron) tablet Take 65 mg by mouth twice daily. levothyroxine (SYNTHROID) 100 mcg tablet Take 1 tablet by mouth once daily. Multivitamin capsule Take 1 capsule by mouth once daily. No current facility-administered medications for this visit. ALLERGIES: Patient has no known allergies. PERSONAL HISTORY: Social History Tobacco Use Smoking status: Never Smokeless tobacco: Never Vaping Use Vaping Use: Never used Substance Use Topics Alcohol use: No Drug use: No FAMILY HISTORY: FAMILY HISTORY Problem Relation Age of Onset Stroke Mother 42 DVT Mother other (CHF) Mother other (Bipolar Disorder) Mother dx after stroke Alcohol/Drug Father alcohol Diabetes Father Hypertension Father Cancer Father liver and pancreatic Hypertension Sister DVT Sister Rectal Cancer Brother COPD Brother Alcohol abuse Brother Hypertension Maternal Grandmother Hyperlipidemia Maternal Grandmother COPD Maternal Grandmother Diabetes Paternal Grandmother Kidney failure Paternal Grandmother Diabetes Paternal Grandfather No Known Problems Daughter No Known Problems Daughter REVIEW OF SYMPTOMS: The review of systems data was entered by the nurse and reviewed by ct Nursing Notes: Leydi Anders LPN 12/10/2022 3:23 PM Signed REVIEW OF SYSTEMS: General: The patient denies fatigue, denies weight loss, notes weight gain, denies feeling hot, and denies feelings of cold. Eyes: The patient denies glaucoma, denies eye injury/surgery, wears glasses or contacts. Ear/Nose/Throat: The patient denies allergies, denies hayfever, denies ear infections, and denies bloody noses. Cardiovascular: The patient denies chest pain, denies heart disease, denies high blood pressure,denies cardiac stent, denies prior heart attack, denies irregular heart beat, denies high cholesterol, denies poor circulation, denies heart failure, other cardiac issues, denies claudication, denies cold feet, denies peripheral arterial stent. Respiratory: The patient denies tuberculosis, denies pneumonia, denies frequent cough, denies pulmonary embolism, denies shortness of breath, and denies coughing up blood. Gastrointestinal: The patient denies difficulty swallowing, denies acid reflux, denies ulcers, denies vomiting, denies jaundice/hepatitis, denies gallbladder problems, denies black or tarry stools, denies hemorrhoids, denies bleeding from rectum, denies diverticulitis, denies constipation, denies diarrhea, denies loss of stool control, and notes hernias. Kidney/Bladder: The patient denies kidney stones, denies urine infections, and denies bloody urine. Skin: The patient notes a history of skin cancer, denies bleeding/changing moles, and denies a history of skin rash. Neurologic: The patient denies a history of epilepsy/convulsions, denies headaches, denies head/spinal injuries, and denies stroke/TIA. Psychiatric: The patient denies psychiatric medications, denies depression, and denies voices, denies substance abuse. Endocrine: The patient notes thyroid disorders, denies diabetes, and denies hormonal problems. Hematologic: The patient denies a history of bruising, denies bleeding, and notes anemia, denies blood clots. Infections: The patient denies a history of measles and mumps, denies rheumatic fever, and denies sexually transmitted diseases. Musculoskeletal: The patient notes back pain/injury, denies back problems, denies sciatica, notes knee/foot trouble, denies arthritis, or denies gout. When was patient's last Mammogram screening? 12/2021 Last Colonoscopy: never Leydi Anders LPN PHYSICAL EXAMINATION: General: The patient is 52 year old female, well nourished, well hydrated in no acute distress. The patient is oriented to time, place, and person. VITALS: Last menstrual period 09/03/2013. There is no height or weight on file to calculate BMI. HEENT: Normal cephalic, ataumatic, pupils are equally round, sclera are anicteric, mucous membranes are moist, oropharynx is clear. Neck has no masses, asymmetry or lymphadenopathy. Respiratory: Clear to auscultation and percussion. Normal respiratory excursion and pattern. Cardiac: Examination is regular rate and rhythm. Normal S1/S2 Abdominal exam: Soft, nontender, with no palpable masses. No hepatosplenomegaly. No palpable hernias. Extremities: no clubbing, cyanosis or edema. No adenopathy. LABORATORY VALUES: As Noted RADIOLOGIC STUDIES: As Noted Assessment IMPRESSION: encounter for screening colonoscopy. Family history of rectal cancer PLAN: I have reviewed my findings with the surgeon. Will plan for lower endoscopy. We discussed the risks and benefits of the planned endoscopy. I have informed the patient that complications can occur including failure to complete the endoscopy and perforation. The patient had the opportunity to ask questions concerning the planned endoscopy. My staff has also explained the procedure to the patient in understandable terms and has given the patient printed material concerning the procedure. The patient freely consents to surgery. I plan to use miralax bowel preparation I have explained to the patient the difference between IV conscious sedation and MAC anesthesia - and I have offered either, according to the patient's wishes. I have explained that with IV conscious sedation there is no anesthesia provider available and therefore there is a limitation of the amount of IV medications that can be given and that the patient may wake up in the middle of the procedure and/or experience pain/discomfort during the procedure. Further discussion was done and the patient was given the opportunity to ask questions and all questions were answered. The patient chooses IV conscious sedation Diagnoses: (Z80.0) Family history of rectal cancer (primary encounter diagnosis) (Z12.11) Encounter for screening for malignant neoplasm of colon Consultation requested by Ana M Sotelo CNP for an opinion regarding screening colonoscopy. My final recommendations will be communicated back to the requesting physician by way of shared Medical record or letter to requesting physician via US mail. Fatuma Urena PA-C documented in this encounter [facility] 12-09-2022 History of Present illness Narrative Melissa is a 52 year old who presents for an annual gynecologic exam without complaints. Menses: hysterectomy. Contraception: hysterectomy HPV vaccine: N/A Last Pap: 07/27/2012 normal HPV: 07/21/2012 negative History of abnormal pap: Yes Last mammogram: 2021normal @ [facility] Sexually active: Yes Pain with intercourse: No Postcoital bleeding: No Hot flashes: Yes Night sweats: Yes Vaginal dryness: Yes OB History T0 L2 SAB1 IAB0 Ectopic0 Multiple0 Live Births0 Mental Health Clinician History LMP: 09/03/2013, Hysterectomy Age at Menarche: Age at First : Age at Menopause: Mental Health Clinician History Comments: Sexual Activity: Yes; Female, Male; Hysterectomy Contraception: Tubal Ligation PAST MEDICAL HISTORY Diagnosis Date Broken ankle Right ankle no surgery Hypothyroidism Melanoma (HCC) Pneumonia 11/25/2018 PAST SURGICAL HISTORY Procedure Laterality Date DILATION & CURETTAGE DX&/THER NONOBSTETRIC 08/05/13 Polypectomy ENDOVENOUS LASER, 1ST VEIN 07/22, 12/22, 03/24 [address]SSURE [address] Linton GASTRIC BYPASS HX 2005 HYSTERECTOMY HX KNEE SURGERY HX Right 11/10/2019 ACL/MCL/Miniscus LIG/TRNSXJ FLP TUBE ABDL/VAG APPR UNI/BI 2010 MELANOMA OF SKIN BIOPSY SYN RPT MELANOMA OF SKIN EXCISION SYN RPT REPAIR UMBILICAL HERNIA 2002, 2003 mesh FAMILY HISTORY Problem Relation Age of Onset Stroke Mother 42 DVT Mother other (CHF) Mother other (Bipolar Disorder) Mother dx after stroke Alcohol/Drug Father alcohol Diabetes Father Hypertension Father Cancer Father liver and pancreatic Hypertension Sister DVT Sister Rectal Cancer Brother COPD Brother Alcohol abuse Brother Hypertension Maternal Grandmother Hyperlipidemia Maternal Grandmother COPD Maternal Grandmother Diabetes Paternal Grandmother Kidney failure Paternal Grandmother Diabetes Paternal Grandfather No Known Problems Daughter No Known Problems Daughter SOCIAL HISTORY Social History Tobacco Use Smoking status: Never Smokeless tobacco: Never Vaping Use Vaping Use: Never used Substance Use Topics Alcohol use: No Drug use: No REVIEW OF SYSTEMS Abdomen: No abdominal pain, nausea, vomiting, diarrhea, or constipation. No bloating, early satiety, indigestion, or increased flatulence. Bladder: No dysuria, gross hematuria, urinary frequency, urinary urgency, or incontinence Breast: No breast lumps, nipple d/c, overlying skin changes, redness or skin retraction Allergies and current medication updated:Yes EXAM: BP 116/76 Ht 5' 1.75 (1.57m) Wt 233 lb (105.7kg) LMP 09/03/2013 BMI 42.99 kg/(m^2). GENERAL: pleasant, female in no apparent distress HEENT: Normocephalic, atraumatic, mucus membranes moist, and no lesions NECK: Supple, full range of motion, no adenopathy, and thyroid normal DERMATOLOGY: Normal, without lesions, non-icteric, and non-hirsute BREAST: soft, non-tender, symmetric, no dominant mass, normal nipple-areolar complex, no lymphadenopathy, and no nipple discharge CHEST: Normal inspiratory effort ABDOMEN: soft, non-tender, and no masses PELVIC: external genitalia normal, normal Bartholin's glands, urethra, Bloomfield's glands, no vulvar lesions, physiologic discharge present, normal appearing perineal body and perianal region, cervix surgically absent BIMANUAL: no adnexal masses, non-tender, and uterus surgically absent RECTOVAGINAL: deferred. NEURO: alert and oriented x3,exam grossly non-focal EXTREMITIES: normal ASSESSMENT/PLAN: 1) Health maintenance: Mammogram up to date Nutrition, exercise and routine health maintenance exams reviewed. Calcium/Vitamin D supplementation information provided. Colon cancer screening: colonoscopy ordered 2) Follow up one year or sooner as needed Ana M Sotelo APRN.REPORT CLERK documented in this encounter [facility] 08-13-2022 Telephone encounter Note Coding correction submitted for reprocessing to [employer]. Codes that needed submitted Vitamin D, Vitamin B12, Iron/TIBC, & TSH. Documentation scanned into chart. [facility] 08-13-2022 Miscellaneous Notes Coding correction submitted for reprocessing to [employer]. Codes that needed submitted Vitamin D, Vitamin B12, Iron/TIBC, & TSH. Documentation scanned into chart. yes Spoke with Melissa. I have requested a copy of her bill to show what labs caused the billing issue. Once I receive that information I will reprocess through [facility]. Ok to change Diagnosis? Please advise Name of caller: Melissa Nichols Contact phone number: [phone] Relationship to Patient: patient Provider: Dr. Arnold Practice: [facility] Chief Complaint/Reason for Call: Pt stated she had blood work on 05.14.2022 and received a bill for $582.16. Pt called billing and also spoke with [employer] and her insurance. Pt insurance advised pt to have Dr. Arnold change the codes and resubmit. Please advise. Thank you. Best time of day caller can be reached: Any Patient advised that office/PCP has 24-48 business hours to return their call: Yes documented in this encounter [facility] [email or web address] 08-13-2022 Telephone encounter Note yes [facility] 08-12-2022 Telephone encounter Note Spoke with Melissa. I have requested a copy of her bill to show what labs caused the billing issue. Once I receive that information I will reprocess through [facility]. Ok to change Diagnosis? Please advise [facility] 08-08-2022 History of Present illness Narrative Images from the original note were not included. Demetri Arnold, DO [address] [facility] [place] [address] GI/Bariatric Endoscopy Clinic Visit Gastroenterology, Hepatology, and Nutrition Department ?[facility] ? 08/08/2022 ? The patient encounter is a virtual/telephone visit today, 08/08/2022, in lieu of an office visit due to the current COVID-19 pandemic crisis and need for social distancing. Reason for Visit: Complications of bariatric procedure s/p RYGB, weight regain, weight management Patient is: Established patient Location of Provider: Hospital Location of Patient: Home Consent for virtual care, including informing the patient that insurance will be billed, and that in-person care is available in case of emergencies or as needed otherwise, was discussed at the time of scheduling. Dear Demetri Arnold, DO, ? I had the pleasure of seeing Melissa Nichols in the [facility] GI/Bariatric Endoscopy Clinic for Complications of bariatric procedure s/p RYGB, weight regain, weight management Interval: Patient presents to follow up on complications of bariatric surgery. She is interested in revision/TORe and P2P was approved yesterday. We discussed procedure in detail including post diet and medication regimen and answered all questions. She is currently taking bariatric vitamins. 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 Prior History/ note from initial [facility] 03/06/2022, Maranda Castro REPORT CLERK: Melissa Nichols has a history of obesity since childhood. Comorbidities are: obesity class III, vitamin D deficiency, complex endometrial hyperplasia, anemia, degenerative joint disease, arthritis, positive JESSICA (nodules on joints f/u with Bobbin Winder Dr. Woo) and hypothyroid. Melissa Nichols underwent RYGB at [place] with Dr. Read on 04/2004. Barretts Esophagus prior to RYGB. no complications post RYGB. She denies having any reflux or heartburn. 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 The patient then experienced weight regain in 2019 and now weighs 231 lbs. The patient is here today complaining of the ability to eat larger portions and has satiety that does not last. Weight gain/regain and Obesity disease: The patient reports could eat several high caloric meals and beverages per day despite not feeling very hungry. Also not feeling satiety or full after eating several meals. Reports craving to eat throughout the day. This has resulted in weight gain/regain and worsening of obesity. Patient has tried to control the diet and be able to lose weight up to 20 lbs. Unfortunately, the patient would subsequently experience rebound weight regain following lifestyle modification interventions (diet + exercise). Patient has tried increasing physical activity or exercise, Weight Watcher, Fast metabolism diet (eat 4-6 small meals a day), Keto diet, high protein/low carb sugar diets, Intermittent fasting, Meal replacement plan, multiple dietitian healthy diets (low carbs, low fat, high protein diets), behavioral therapy and [employer] phone shen. Patient has tried medications (Topamax, Phen fen) and is following obesity medicine. She is not interested in revisional bariatric surgery. Patient exercises 4 times a week for 20-30 min every time: walking, chair yoga, treadmil, bike.Unfortunately, despite all the above interventions, patient's weight problem has started to severely affect patient's lifestyle and health. Specifically, patient has been experiencing ACL/MCL Repair from torn meniscus, also broke her ankle in 2021 which is exacerbated after walking 0.5-1 miles and this is now impairing the patient from been more physically active. Melissa Nichols was seen by primary care, orthopedics, bariatric specialities who recommended to lose weight and weight loss interventions. 24 hrs Diet recall: Breakfast: protein shake or protein oatmeal/homemade oatmeal. Snack: algerian yogurt Lunch: salad with packet tuna Snack: sometimes string cheese Dinner: crockpot dinner pot roast and veggies Snack: 2 cups of 35 lauren popcorn Wakes up to eat: no Current Exercise Activity: N/A Weight History: Pre-RYGB weight: 280 lbs (BMI 51.2). Post-RYGB ava: 160 lbs (BMI 29.3). Ht 157.5 cm (5' 2) Wt 106.1 kg (234 lb) LMP 09/03/2013 BMI 42.80 kg/m LMP 09/03/2013 Goal weight BMI < 27: 162.3 Goal weight BMI < 30: 180.3 Last 5 Encounter Wt Readings: Date: Wt: 02/25/2022 106.6 kg (235 lb) 02/15/2022 106.6 kg (235 lb) 12/07/2021 108 kg (238 lb) 12/06/2021 108.4 kg (239 lb) 12/04/2020 101.6 kg (224 lb) Risk factors: Tobacco use: No EtOH intake: Rare social NSAIDs: No H. Pylori: No (EGD 2003 prior showed barretts repeat EGD normal) FH:No, brother recently diagnosed with rectal cancer and father with liver and pancreatic ca PH: No Relevant Medications: Phen fin past Topamax started 2 weeks ago (4lbs lost and helping with nightly snacks) Vitamins/Minerals Supplements: - Vitamin D3 - Calcium 1200 mg - Multivitamin Relevant Bariatric Procedures/Surgeries Bariatric Surgeon: J[facility] at [facility] Bariatric Surgery: 2004 Abisai-en-Y Gastric Bypass (RYGB Past Medical History: PAST MEDICAL HISTORY Diagnosis Date Broken ankle Right ankle no surgery Hypothyroidism Melanoma (HCC) Pneumonia 11/25/2018 Past Surgical History: PAST SURGICAL HISTORY Procedure Laterality Date DILATION & CURETTAGE DX&/THER NONOBSTETRIC 08/05/13 Polypectomy ENDOVENOUS LASER, 1ST VEIN 07/22, 12/22, 03/24 [address]SSURE [address] Linton GASTRIC BYPASS HX 2005 HYSTERECTOMY HX KNEE SURGERY HX Right 11/10/2019 ACL/MCL/Miniscus LIG/TRNSXJ FLP TUBE ABDL/VAG APPR UNI/BI 2009 MELANOMA OF SKIN BIOPSY SYN RPT MELANOMA OF SKIN EXCISION SYN RPT REPAIR UMBILICAL HERNIA 2002, 2003 mesh Medications: Current Outpatient Medications Medication Sig Dispense Refill calcium citrate/vitamin D3 (CALCIUM CITRATE + D ORAL) Take 1,200 mg by mouth once daily. topiramate (TOPAMAX) 25 mg tablet Take 1 tablet with dinner. After 2 weeks, if tolerating well, increase to 2 tablets with dinner. 60 tablet 2 hydroxychloroquine (PLAQUENIL) 200 mg tablet Take 300 mg by mouth once daily. ergocalciferol, vitamin D2, (DRISDOL) 50,000 unit capsule Take 1 capsule by mouth once each week. ferrous sulfate 325 mg (65 mg iron) tablet Take 65 mg by mouth twice daily. levothyroxine (SYNTHROID) 100 mcg tablet Take 1 tablet by mouth once daily. Multivitamin capsule Take 1 capsule by mouth once daily. No current facility-administered medications for this visit. Allergies: ALLERGIES No Known Allergies Family History: No known colon cancer, polyps, IBD, celiac disease, pancreatic disease, or liver disease. FAMILY HISTORY Problem Relation Age of Onset Stroke Mother 42 DVT Mother other (CHF) Mother other (Bipolar Disorder) Mother dx after stroke Alcohol/Drug Father alcohol Diabetes Father Hypertension Father Cancer Father liver and pancreatic DVT Sister ? Social History: Social History Tobacco Use Smoking status: Never Smokeless tobacco: Never Vaping Use Vaping Use: Never used Substance Use Topics Alcohol use: No Drug use: No Tobacco: Tobacco Use: Never Alcohol: Alcohol Use: No Illicits: Drug Use: No Review of Systems: Review of Systems Constitutional: no fevers, chills, night sweats, or weight loss Cardiovascular: no chest pain Pulmonary: no shortness of breath Eyes: no visual changes or eye irritation Musculoskeletal: no myalgias or arthralgias Skin: no new or changing skin lesions, rashes or pruritis 12 point ROS otherwise negative. Physical Examination: Ht 157.5 cm (5' 2) Wt 106.1 kg (234 lb) LMP 09/03/2013 BMI 42.80 kg/m Physical Exam virtual/videocall encounter: Patient reported height 5'2 and weight 234 lbs LMP 09/03/2013 General - Normal, healthy, cooperative, in no acute distress Able to interact verbally by video conference Psych - ORIENTATION: normal to time place, person and situation Mood/Affect: AFFECT AND MOOD: Normal Head/Neuro - Normal size and shape Facial appearance normal Pulmonary - respiratory effort normal Cardiovascular - patient describes extremities normal, warm, no cyanosis,no clubbing and no edema Abdominal - Flat, Visible protrusions or hernias: No Incisions/scars: None, Areas of pain/tenderness: denies Skin - abnormal lesions not visualized Motor - patient seen sitting with Normal appearing strength and coordination ? Laboratory Data: Lab Results Component Value Date B12 [id number] 02/22/2022 TSH Date Value Ref Range Status 10/13/2009 1.75 0.34 - 5.60 UIU/ML Final Comment: TSH: ULTRASENSITIVE METHOD- LOWER DETECTION LIMIT = 0.01 UIU/ML WBC (k/uL) Date Value 06/30/2019 6.05 RBC (m/uL) Date Value 06/30/2019 4.02 Hemoglobin (g/dL) Date Value 06/30/2019 12.3 Hematocrit (%) Date Value 06/30/2019 37.9 MCV (fL) Date Value 06/30/2019 94.3 MCH (pG) Date Value 06/30/2019 30.6 MCHC (g/dL) Date Value 06/30/2019 32.5 RDW-CV (%) Date Value 06/30/2019 12.9 Platelet Count (k/uL) Date Value 06/30/2019 168 MPV (fL) Date Value 06/30/2019 9.2 Potassium (mmol/L) Date Value 06/30/2019 3.3 Sodium (mmol/L) Date Value 06/30/2019 137 Creatinine (mg/dL) Date Value 06/30/2019 0.79 BUN (mg/dL) Date Value 06/30/2019 8 Glucose (mg/dL) Date Value 06/30/2019 138 TSH (UIU/ML) Date Value 10/13/2009 1.75 Glucose (mg/dL) Date Value 06/30/2019 138 (H) BUN (mg/dL) Date Value 06/30/2019 8 Creatinine (mg/dL) Date Value 06/30/2019 0.79 Sodium (mmol/L) Date Value 06/30/2019 137 Potassium (mmol/L) Date Value 06/30/2019 3.3 (L) Chloride (mmol/L) Date Value 06/30/2019 100 CO2 (mmol/L) Date Value 06/30/2019 24 Protein, Total (g/dL) Date Value 06/30/2019 7.1 Albumin (g/dL) Date Value 06/30/2019 4.0 Calcium (mg/dL) Date Value 06/30/2019 9.1 Alkaline Phosphatase (U/L) Date Value 06/30/2019 69 Bilirubin, Total (mg/dL) Date Value 06/30/2019 0.7 AST (U/L) Date Value 06/30/2019 21 ALT (U/L) Date Value 06/30/2019 24 Glucose (mg/dL) Date Value 06/30/2019 138 Creatinine (mg/dL) Date Value 06/30/2019 0.79 Potassium (mmol/L) Date Value 06/30/2019 3.3 AST (U/L) Date Value 06/30/2019 21 ALT (U/L) Date Value 06/30/2019 24 Hemoglobin A1C (%) Date Value 02/22/2022 5.4 Cholesterol, Total (MG/DL) Date Value 10/13/2009 173 HDL Cholesterol (MG/DL) Date Value 10/13/2009 61 ] LDL Cholesterol (MG/DL) Date Value 10/13/2009 92 Triglyceride (MG/DL) Date Value 10/13/2009 101 Imagin03/27/2007 CT ABD WO CONTRAST FINDINGS: The liver and spleen are normal as are both kidneys. There are postsurgical changes in the upper abdomen consistent with previous gastric bypass surgery. It should however be noted that there is a paucity of contrast in the region of the stomach and upper abdomen. I am suspicious of some periaortic adenopathy but this could also represent bowel In the lower cuts located at midline is a small ventral hernia and soft tissue density in the anterior abdomen which I believe is related to the surgery if there has been a midline incision. IMPRESSION: Postoperative changes with small ventral hernia and soft tissue prominence in the midline 2. Possible periaortic adenopathy. 3. I would doubt that the findings account for the right upper quadrant mass that is clinically suspected 12/08/2006 US RUQ ABD IMPRESSION: A single focus of comet-tail artifact originating from the nondependent gallbladder wall suggesting adenomyomatosis. Endoscopy: EGD 07/05/2022: Findings: The Z-line was irregular and was found 35 cm from the incisors. Biopsies were taken with a cold forceps for histology. The examined esophagus was otherwise normal. The GE junction and hiatus were at 35 cm from incisors. Evidence of a Abisai-en-Y gastric bypass (RYGB) was found. The gastrojejunal anastomosis (GJA) was characterized by normal appearing mucosa. No ulcers, erosion, sutures or zeke. The GJA outlet was dilated 25 mm diameter and was traversed. The gastric pouch extended from 35 cm to 40 cm from the incisors. No gastro-gastric fistula was found. The jejunum was normal at 60 cm (both Abisai/alimentary and blind limbs). No food or debris in the blind limb. Impression: - Z-line irregular, 35 cm from the incisors. Biopsied. 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 - Normal examined jejunum. Pathology: FINAL DIAGNOSIS A. Esophagus, lower, biopsy: - Squamous and glandular mucosa with increased chronic inflammation. - Negative for intestinal metaplasia and dysplasia. Assessment and Recommendations: ??52 year old female with history as per HPI, obesity class III, vitamin D deficiency, complex endometrial hyperplasia, anemia, degenerative joint disease, arthritis, positive JESSICA (follows rheum.) and hypothyroid presenting to GI/Bariatric Endoscopy clinic for evaluation of complications of bariatric surgery s/p RYGB, and weight regain. Patient was diagnosed with barretts esophagus (patient unaware of any treatment) on EGD done in 2003 prior to bariatric surgery, she stated follow EGD's were normal. Obesity class III, s/p RYGB, c/b weight regain, long discussion, multidisciplinary approach, patient is aware that she would benefit the most from revisional bariatric surgery, she would get more weight loss, however, patient is not interested and has declined the surgical route. And would like to proceed with less invasive option such as endoscopic revision. Procedure discussed in detail. Will proceed with scheduling endoscopic revision. Weight History: Pre-RYGB weight: 280 lbs (BMI 51.2). Post-RYGB ava: 160 lbs (BMI 29.3). Today weight: 234 lbs (BMI 42.80) Recommendations: - Patient interested and benefits from EGBR our office will reach out to schedule. - Stay hydrated - Counseled on importance of calorie counting - Solid calorie diet of 1200kcal per day - Emphasized need for aerobic exercise, low-impact exercises and resistance training - Increase goal oriented exercise with resistance training as tolerated - Patient is very motivated and making changes to her life style in order to curb the weight regain and lose weight - We have recommended exercise at least 4-5 times weekly - RTC 2-3 wks prior to scheduled procedure VIRTUAL VISIT I spent a total of 30 minutes during this real-time, interactive virtual clinical encounter, which was conducted virtually using HIPAA compliant videoconferencing technology. Greater than 50% of the time spent was devoted to counseling and coordinating care including review of records, pertinent lab data and studies, as well as discussing diagnostic evaluation and work up, planned therapeutic interventions and future disposition of care. This includes any additional research needed to obtain further information in formulating the plan of care of this patient. This includes counseling the patient about her disease and diagnosis, specifically: complications of bariatric surgery, weight gain, obesity class III and weight management We reviewed coronavirus precautions including avoiding public places, maintaining 6 feet of distance from other persons when in public, no sick contacts, and fastidious handwashing. Thank you for allowing me to participate in the care of your patient. If you have any questions or concerns, please feel free to contact me. Maranda Castro APRN.[facility] GI Bariatric Endoscopy 08/08/2022 3:36 PM documented in this encounter [facility] 08-01-2022 Miscellaneous Notes Updated patient regarding insurance denial. Office will proceed with PTP. documented in this encounter [facility] 2022 Telephone encounter Note Name of caller: Melissa Nichols Contact phone number: [phone] Relationship to Patient: patient Provider: Dr. Arnold Practice: [facility] Chief Complaint/Reason for Call: Pt stated she had blood work on 05.14.2022 and received a bill for $582.16. Pt called billing and also spoke with [employer] and her insurance. Pt insurance advised pt to have Dr. Arnold change the codes and resubmit. Please advise. Thank you. Best time of day caller can be reached: Any Patient advised that office/PCP has 24-48 business hours to return their call: Yes [facility] 07-05-2022 Nurse Note AMBULATORY PATIENT EDUCATION NOTE TOPIC: GI PROCEDURES: Esophagogastroduodenoscopy(EGD) for control of bleeding,dilation(any means),imaging,tube placement READINESS TO LEARN INSTRUCTION PROVIDED TO: Patient, readness to learn accessed prior to procedure COGNITIVE ABILITY: Alert and oriented PTED MOTIVATION TO LEARN: Eager Interested FAMILY SUPPORT: Moderate - Family present but overwhelmed IPATIENT LEARNS BEST BY: Individual Instruction FACTORS AFFECTING LEARNING: None PHYSICAL LIMITATIONS AFFECTING LEARNING: None LEARNING RESPONSE METHOD OF INSTRUCTION: Individual instruction PATIENT / FAMILY RESPONSE: Verbalizes understanding of: WORSENING CONDITION-Signs and symptoms of a worsening condition that warrant a call to the physician FOLLOW-UP PLAN: Patient instructed to call with any further issues SUPPLEMENTAL MATERIAL: Procedure Discharge Instructions REFERRAL (RECOMMENDATION): None PRE OP LEARNING ASSESSMENT PROCEDURE/SURGERY: GI PROCEDURES: EGD READINESS TO LEARN COGNITIVE ABILITY: Alert and oriented MOTIVATION TO LEARN: Interested FAMILY SUPPORT: High - Very involved in pt care PATIENT LEARNS BEST BY: Individual Instruction Written Instruction - Hand-outs Verbal Instruction FACTORS AFFECTING LEARNING: None PHYSICAL LIMITATIONS AFFECTING LEARNING: None Electronically Signed By: Luna Chan RN In Department: GASTROENTEROLOGY documented in this encounter [facility] 07-05-2022 History and physical note HISTORY AND PHYSICAL Melissa Nichols presents for endoscopic procedure Current history and physical on file: No Is a new History and Physical required for today's visit? Yes Indication for procedure: Please see procedure's ordering provider for details (encounter/endoscopy order details). PROCEDURE(S) SCHEDULED FOR: Please see consent form for details of endoscopic procedure. BASELINE BEHAVIOR: Calm BASELINE ORIENTATION: Alert and oriented x3 All medications and allergies reviewed: Yes Skin Assessment: Warm dry mucus membranes pink Airway/Respiratory Assessment: Airway: visualization of the uvula- Yes Mouth: opening greater than 2 fingerbreadths- Yes Neck: full range of motion- Yes Breath sounds clear/equal- Yes Cardiac Assessment: Regular rate and rhythm without murmur Abdominal Assessment: Abdomen soft, non-tender, no masses or organomegaly. Sedation Plan: Anesthesia (MAC or GA) Consent: Obtained, please see consent form for details. 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 Ruddy Thomas MD MSc Advanced Interventional Endoscopy GI/Bariatric Endoscopy [facility] - [facility] documented in this encounter [facility] 07-05-2022 Miscellaneous Notes Thank you both. I have made the adjustment and sent her a Waffle message letting her know as well. Yes that's fine ok Patient would like to switch physicians to a female. Is this ok with with you both? From Clayton to Holley documented in this encounter [facility] 07-05-2022 Telephone encounter Note Thank you both. I have made the adjustment and sent her a Waffle message letting her know as well. [facility] 07-04-2022 Telephone encounter Note Yes that's fine [facility] 07-04-2022 Telephone encounter Note ok [facility] 07-04-2022 Telephone encounter Note Patient would like to switch physicians to a female. Is this ok with with you both? From Clayton to Holley [facility] 07-04-2022 History of Present illness Narrative Images from the original note were not included. [facility] [id number] [facility] [address] Dept: [phone] Dept Loc: [phone] 07/04/2022 Visit type: established patient Reason for Visit: Ear Fullness (Melissa Nichols is here today for bilateral ear fullness x1 month, patient reports no pain or drng. ) ASSESSMENT/PLAN 1. Impacted cerumen of right ear -Complete resolution after irrigation with water 2. School physical exam - Filled in paperwork for [employer] [employer] [employer] [facility] [employer] physical today. Full physical exam performed. Follow up in about 1 year (around 07/04/2023). Subjective Patient: Melissa Nichols is a 51 y.o. female who presents for bilateral ear fullness and for physical exam for school HPI She has had sensation of bilateral ear fullness for past month. She is not having ear pain. She feels that hearing is muffled since this occurred. She denies drainage from her ear. She denies fevers or chills. Patient in need of paperwork filled out today, requires documentation of prior vaccines and physical exam performed. Review of Systems Constitutional: Negative for chills, fatigue and fever. HENT: Positive for hearing loss. Negative for congestion, ear discharge, ear pain, rhinorrhea, sinus pressure and sinus pain. Eyes: Negative for visual disturbance. Respiratory: Negative for cough and shortness of breath. Cardiovascular: Negative for chest pain, palpitations and leg swelling. Gastrointestinal: Negative for abdominal pain, diarrhea, nausea and vomiting. Musculoskeletal: Positive for arthralgias (chronic). Neurological: Negative for dizziness, weakness, light-headedness and numbness. No Known Allergies Outpatient Medications Prior to Visit Medication Sig Dispense Refill ergocalciferol (Vitamin D-2) 1.25 MG (73522 UT) capsule Take 1 capsule (1.25 mg) by mouth 1 (one) time per week. 90 capsule 3 ferrous sulfate 325 (65 Fe) MG tablet Take 65 mg by mouth in the morning and 65 mg in the evening. hydroxychloroquine (Plaquenil) 200 MG tablet Take 300 mg by mouth in the morning. levothyroxine (Synthroid, Levoxyl) 100 MCG tablet Take 1 tablet by mouth every morning. calcium citrate (Calcitrate) 950 (200 Ca) MG tablet Take 950 mg by mouth daily. mupirocin (Bactroban) 2 % ointment APPLY 2X DAILY TO AFFECTED AREA INSIDE NOSE UNTIL AREA RESOLVES No facility-administered medications prior to visit. 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 OTHER SURGICAL HISTORY 07 10 2012 vein sclerotherapy and 09/2012 TOTAL ABDOMINAL HYSTERECTOMY W/ BILATERAL SALPINGOOPHORECTOMY 09 23 2013 total UPPER GASTROINTESTINAL ENDOSCOPY 11 02 2013 chronic epigastric pain related to patients gastric pouch, no evidence of pathology Family History Problem Relation Name Age of Onset Alcohol abuse Father Diabetes Paternal Grandmother HTN Alcohol abuse Brother Diabetes Paternal Grandfather Stroke Mother Cancer Father pancreatic ca, liver Hypertension Maternal Grandmother Heart attack Bipolar disorder Mother No Known Problems Sister Other ([address]307) Mother manic depressive High Blood Pressure Other relative from this condition Diabetes Father Social History Tobacco Use Smoking status: Never Passive exposure: Never Smokeless tobacco: Never Substance Use Topics Alcohol use: Not Currently Objective BP 129/84 (BP Location: Right arm, Patient Position: Sitting, BP Cuff Size: Adult) Pulse 73 Temp 36.7 C (98.1 F) (Tympanic) Ht 5' 2 (1.575 m) Wt 234 lb (106 kg) SpO2 99% BMI 42.80 kg/m Physical Exam Vitals and nursing note reviewed. Constitutional: General: She is not in acute distress. Appearance: Normal appearance. She is not ill-appearing. HENT: Head: Normocephalic and atraumatic. Right Ear: There is impacted cerumen (worse on R). Left Ear: There is impacted cerumen. Eyes: General: Right eye: No discharge. Left eye: No discharge. Extraocular Movements: Extraocular movements intact. Conjunctiva/sclera: Conjunctivae normal. Pupils: Pupils are equal, round, and reactive to light. Neck: Comments: thyromegaly Cardiovascular: Rate and Rhythm: Normal rate and regular rhythm. Pulses: Normal pulses. Heart sounds: Normal heart sounds. Pulmonary: Effort: Pulmonary effort is normal. No respiratory distress. Breath sounds: Normal breath sounds. No stridor. No wheezing, rhonchi or rales. Abdominal: General: Abdomen is flat. Bowel sounds are normal. There is no distension. Palpations: Abdomen is soft. There is no mass. Tenderness: There is no abdominal tenderness. There is no guarding. Hernia: No hernia is present. Musculoskeletal: Right lower leg: No edema. Left lower leg: No edema. Skin: General: Skin is warm and dry. Capillary Refill: Capillary refill takes less than 2 seconds. Neurological: General: No focal deficit present. Mental Status: She is alert and oriented to person, place, and time. Psychiatric: Mood and Affect: Mood normal. Behavior: Behavior normal. Thought Content: Thought content normal. Judgment: Judgment normal. Data Reviewed and Summarized: Medical decision making including: See assessment an plan. Goals None [facility] On this date, 07/04/2022 I have spent 30 minutes reviewing previous notes, test results and face to face with the patient discussing the diagnosis and importance of compliance with the treatment plan as well as documenting on the day of the visit. documented in this encounter [facility] 06-27-2022 Miscellaneous Notes Spoke with patient: Yes Confirmed date scheduled and patient report time: Yes Procedure Planned:Esophagogastroduodenoscop y(EGD) with or without biopies based on clinical findings, removal of polyps or lesions Is the patient on blood thinners?no Procedure Instructions given to patient: Yes, and they verbalized their understanding of instructions given Patient instructed to take prescribed preparation prior to procedure:Yes, and they verbalized their understanding of instructions given Patient instructed to have family/friend present for procedure transport home:Patient/patient medical detail representative was told that if they do not have a responsible adult accompany them to their procedure; and remain in the endoscopy area until they are discharged; that their procedure cannot be done with sedation or anesthesia and may be cancelled. and They verbalized their understanding and agree to have a responsible adult accompany the patient to their procedure and remain in the endoscopy area. Any barriers to Patient learning: Patient/Patient Route Process Administrator responded appropriately on phone. Type of instruction given: Verbal by telephone contact. Phoebe Salamanca LPN documented in this encounter [facility] 06-12-2022 Telephone encounter Note Sent Digital H2O message [facility] 06-12-2022 Miscellaneous Notes Sent Digital H2O message Regarding form for school. It was pre-filled out with results that I cannot verify so cannot sign this: immunizations and PPD testing. Does she have access to these results or someone else to sign off on them? Name of caller: Melissa Contact phone number: [phone] Relationship to Patient: patient Provider: [facility] Practice: [facility] Chief Complaint/Reason for Call: Patient called and wants to know if the form that she faxed over 06/06/22 has been filled out yet. 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 She would like someone to reach out and let her know the status of this. Please advise Best time of day caller can be reached: any Patient advised that office/PCP has 24-48 business hours to return their call: No documented in this encounter [facility] 06-12-2022 Telephone encounter Note Regarding form for school. It was pre-filled out with results that I cannot verify so cannot sign this: immunizations and PPD testing. Does she have access to these results or someone else to sign off on them? [facility] 06-12-2022 Telephone encounter Note Name of caller: Melissa Contact phone number: [phone] Relationship to Patient: patient Provider: [facility] Practice: [facility] Chief Complaint/Reason for Call: Patient called and wants to know if the form that she faxed over 06/06/22 has been filled out yet. 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 She would like someone to reach out and let her know the status of this. Please advise Best time of day caller can be reached: any Patient advised that office/PCP has 24-48 business hours to return their call: No [facility] 05-14-2022 History of Present illness Narrative Images from the original note were not included. [facility] [address] [facility] [address] Visit type: Established Patient Reason for Visit: Annual Exam (Labs 12/14/20. Patient is fasting today. Wants order for colonoscopy. ) Assessment and Plan 1. Well adult exam She is following up with GI to see about gastric bypass manipulation She will discuss with them about colonoscopy She is seeing steam fitter supervisor - ergocalciferol (Vitamin D-2) 1.25 MG (83727 UT) capsule; Take 1 capsule (1.25 mg) by mouth 1 (one) time per week. Dispense: 90 capsule; Refill: 3 - TSH; Future - Comprehensive metabolic panel; Future - Lipid panel; Future - Hemoglobin A1c; Future - HIV-1 and HIV-2 Antigen-Antibody Screen; Future - Hepatitis C antibody; Future - CBC; Future - Vitamin D 25 hydroxy; Future - Iron and TIBC; Future - Vitamin B12; Future - TSH - Comprehensive metabolic panel - Lipid panel - Hemoglobin A1c - HIV-1 and HIV-2 Antigen-Antibody Screen - Hepatitis C antibody - CBC - Vitamin D 25 hydroxy - Iron and TIBC - Vitamin B12 2. Acquired iron deficiency anemia due to decreased absorption Controlled -replaced 3. 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 Vitamin D deficiency Controlled -replace 5. Acquired hypothyroidism Controlled -levothyroxine Follow up in about 1 year (around 05/14/2023). Subjective HPI Well check. Comes in yearly. She sees AUTOMATIC THREAD WINDER as well. Has Morbid obesity, s/p gastric bypass in 2003, hypothyroidism, Raynauds and unspecified connective tissue dz with pos JSESICA (sees special education kindergarten teacher), plaquenil seems to help, vit D Def. She broke her right ankle 2021. Improved. Seeing [facility] for EGD and will discuss colonoscopy with them. 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 Review of Systems Constitutional: Negative for appetite change, fatigue and unexpected weight change. Eyes: Negative for pain and visual disturbance. Respiratory: Negative for apnea, cough, chest tightness and shortness of breath. Cardiovascular: Negative for chest pain, palpitations and leg swelling. Gastrointestinal: Negative for abdominal distention, abdominal pain, anal bleeding, blood in stool, constipation, diarrhea, nausea, rectal pain and vomiting. Genitourinary: Negative for dysuria, frequency and hematuria. Musculoskeletal: Positive for arthralgias. Negative for back pain and gait problem. Skin: Negative for rash. Neurological: Negative for dizziness and headaches. Hematological: Negative for adenopathy. Does not bruise/bleed easily. Psychiatric/Behavioral: Negative for dysphoric mood and sleep disturbance. The patient is not nervous/anxious. No Known Allergies Outpatient Medications Prior to Visit Medication Sig Dispense Refill calcium citrate (Calcitrate) 950 (200 Ca) MG tablet Take 950 mg by mouth daily. ferrous sulfate 325 (65 Fe) MG tablet Take 65 mg by mouth in the morning and 65 mg in the evening. hydroxychloroquine (Plaquenil) 200 MG tablet Take 300 mg by mouth in the morning. levothyroxine (Synthroid, Levoxyl) 100 MCG tablet Take 1 tablet by mouth every morning. ergocalciferol (Vitamin D-2) 1.25 MG (41190 UT) capsule Take 1 capsule by mouth 1 (one) time per week. calcium carbonate 1500 (600 Ca) MG tablet Take 1,200 Units by mouth in the morning. topiramate (Topamax) 25 MG tablet Take 1 tablet with dinner. After 2 weeks, if tolerating well, increase to 2 tablets with dinner. No facility-administered medications prior to visit. Past Medical History: Diagnosis Date Autoimmune disorder (CMS/HCC) (HCC) 11/09/2018 Cardiac dysrhythmia Chronic anemia Connective tissue disease (HCC) Elevated BP without hypertension GERD (gastroesophageal reflux disease) Grief grief adjustment Hypoglycemia Hypothyroidism Lung nodule Obesity 08 1999 Osteoarthritis Varicose veins Vitamin D deficiency Social History Socioeconomic History Marital status: Tobacco Use Smoking status: Never Smokeless tobacco: Never Vaping Use Vaping Use: Never used Substance and Sexual Activity Alcohol use: Not Currently Drug use: Never Social Determinants of Health Financial Resource Strain: Low Risk Difficulty of Paying Living Expenses: Not hard at all Food Insecurity: No Food Insecurity Worried About Running Out of Food in the Last Year: Never true Ran Out of Food in the Last Year: Never true Transportation Needs: No Transportation Needs Lack of Transportation (Medical): No Lack of Transportation (Non-Medical): No Physical Activity: Insufficiently Active Days of Exercise per Week: 2 days Minutes of Exercise per Session: 20 min Stress: No Stress Concern Present Feeling of Stress : Not at all Social Connections: Socially Integrated Frequency of Communication with Friends and Family: More than three times a week Frequency of Social Gatherings with Friends and Family: Once a week Attends [employer] Services: More than 4 times per year Active Member of Clubs or Organizations: Yes Attends Club or Organization Meetings: Never Marital Status: Intimate Partner Violence: Not At Risk Fear of Current or Ex-Partner: No Emotionally Abused: No Physically Abused: No Sexually Abused: No Housing Stability: Low Risk Unable to Pay for Housing in the Last Year: No Number of Places Lived in the Last Year: 1 Unstable Housing in the Last Year: No Past Surgical History: Procedure Laterality Date ANTERIOR CRUCIATE LIGAMENT REPAIR Right 11/10/2019 GASTRIC BYPASS 04 18 2004 HYSTERECTOMY OTHER SURGICAL HISTORY Right 05/2016 posterior right calf melanoma removed. OTHER SURGICAL HISTORY 07 10 2012 vein sclerotherapy and 09/2012 TOTAL ABDOMINAL HYSTERECTOMY W/ BILATERAL SALPINGOOPHORECTOMY 09 23 2013 total UPPER GASTROINTESTINAL ENDOSCOPY 11 02 2013 chronic epigastric pain related to patients gastric pouch, no evidence of pathology Past Surgical History: Procedure Laterality Date ANTERIOR CRUCIATE LIGAMENT REPAIR Right 11/10/2019 GASTRIC BYPASS 04 18 2004 HYSTERECTOMY OTHER SURGICAL HISTORY Right 05/2016 posterior right calf melanoma removed. OTHER SURGICAL HISTORY 07 10 2012 vein sclerotherapy and 09/2012 TOTAL ABDOMINAL HYSTERECTOMY W/ BILATERAL SALPINGOOPHORECTOMY 09 23 2013 total UPPER GASTROINTESTINAL ENDOSCOPY 11 02 2013 chronic epigastric pain related to patients gastric pouch, no evidence of pathology Family History Problem Relation Name Age of Onset Alcohol abuse Father Diabetes Paternal Grandmother HTN Alcohol abuse Brother Diabetes Paternal Grandfather Stroke Mother Cancer Father pancreatic ca, liver Hypertension Maternal Grandmother Heart attack Bipolar disorder Mother No Known Problems Sister Other (620[address]) Mother manic depressive High Blood Pressure Other relative from this condition Diabetes Father Objective BP 120/85 (BP Location: Right arm, Patient Position: Sitting, BP Cuff Size: Adult) Pulse 75 Temp 36.1 C (97 F) (Temporal) Ht 5' 2 (1.575 m) Wt 232 lb (105 kg) SpO2 100% BMI 42.43 kg/m Patient Weight 05/14/22 232 lb (105 kg) 12/13/20 225 lb 6.4 oz (102 kg) 12/13/19 209 lb (94.8 kg) Physical Exam Vitals and nursing note reviewed. Constitutional: General: She is not in acute distress. Appearance: Normal appearance. She is not ill-appearing, toxic-appearing or diaphoretic. HENT: Head: Normocephalic and atraumatic. Right Ear: Tympanic membrane normal. Left Ear: Tympanic membrane normal. Mouth/Throat: Mouth: Mucous membranes are moist. Pharynx: Oropharynx is clear. No oropharyngeal exudate or posterior oropharyngeal erythema. Eyes: General: No scleral icterus. Extraocular Movements: Extraocular movements intact. Conjunctiva/sclera: Conjunctivae normal. Pupils: Pupils are equal, round, and reactive to light. Cardiovascular: Rate and Rhythm: Normal rate and regular rhythm. Heart sounds: No murmur heard. Pulmonary: Effort: Pulmonary effort is normal. Breath sounds: Normal breath sounds. Abdominal: General: Abdomen is flat. Bowel sounds are normal. Palpations: Abdomen is soft. Tenderness: There is no abdominal tenderness. Musculoskeletal: Cervical back: Normal range of motion and neck supple. Right lower leg: No edema. Left lower leg: No edema. Neurological: General: No focal deficit present. Mental Status: She is alert and oriented to person, place, and time. Psychiatric: Mood and Affect: Mood normal. Behavior: Behavior normal. Thought Content: Thought content normal. Judgment: Judgment normal. Chart Clean Up: Medications Discontinued During This Encounter Medication Reason calcium carbonate 1500 (600 Ca) MG tablet Med list cleanup topiramate (Topamax) 25 MG tablet Med list cleanup ergocalciferol (Vitamin D-2) 1.25 MG (79731 UT) capsule Reorder Demetri Arnold MD 05/14/2022 8:31 AM documented in this encounter [facility] 03-06-2022 History of Present illness Narrative Images from the original note were not included. Demetri Arnold DO [address] [place] [address] [place] [id number] GI/Bariatric Endoscopy Clinic Visit Gastroenterology, Hepatology, and Nutrition Department ?[facility] ? 03/06/2022 ? The patient encounter is a virtual/telephone visit today, 03/06/2022, in lieu of an office visit due to the current COVID-19 pandemic crisis and need for social distancing. Reason for Visit: Complications of bariatric procedure s/p RYGB and weight regain. Patient is: New patient Location of Provider: Hospital Location of Patient: Home Consent for virtual care, including informing the patient that insurance will be billed, and that in-person care is available in case of emergencies or as needed otherwise, was discussed at the time of scheduling. Dear Demetri Arnold, DO, ? I had the pleasure of seeing Melissa Nichols in the [facility] GI/Bariatric Endoscopy Clinic for complications of bariatric procedure s/p RYGB and weight management. ?? The patient is a 51 year old female with past medical history as below presenting to us with obesity s/p RYGB. Prior History: Melissa Nichols has a history of obesity since childhood. Comorbidities are: obesity class III, vitamin D deficiency, complex endometrial hyperplasia, anemia, degenerative joint disease, arthritis, positive JESSICA (nodules on joints f/u with Bobbin Winder Dr. Woo) and hypothyroid. Melissa Nichols underwent RYGB at [place] with Dr. Read on 04/2004. Barretts Esophagus prior to RYGB. no complications post RYGB. 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 The patient then experienced weight regain in 2019 and now weighs 231 lbs. The patient is here today complaining of the ability to eat larger portions and has satiety that does not last. Weight gain/regain and Obesity disease: The patient reports could eat several high caloric meals and beverages per day despite not feeling very hungry. Also not feeling satiety or full after eating several meals. Reports craving to eat throughout the day. This has resulted in weight gain/regain and worsening of obesity. Patient has tried to control the diet and be able to lose weight up to 20 lbs. Unfortunately, the patient would subsequently experience rebound weight regain following lifestyle modification interventions (diet + exercise). Patient has tried increasing physical activity or exercise, Weight Watcher, Fast metabolism diet (eat 4-6 small meals a day), Keto diet, high protein/low carb sugar diets, Intermittent fasting, Meal replacement plan, multiple dietitian healthy diets (low carbs, low fat, high protein diets), behavioral therapy and baritastic phone shen. Patient has tried medications (Topamax, Phen fen) and is following obesity medicine. She is not interested in revisional bariatric surgery. Patient exercises 4 times a week for 20-30 min every time: walking, chair yoga, treadmil, bike.Unfortunately, despite all the above interventions, patient's weight problem has started to severely affect patient's lifestyle and health. Specifically, patient has been experiencing ACL/MCL Repair from torn meniscus, also broke her ankle in 2021 which is exacerbated after walking 0.5-1 miles and this is now impairing the patient from been more physically active. Melissa Nichols was seen by primary care, orthopedics, bariatric specialities who recommended to lose weight and weight loss interventions. 24 hrs Diet recall: Breakfast: protein shake or protein oatmeal/homemade oatmeal. Snack: algerian yogurt Lunch: salad with packet tuna Snack: sometimes string cheese Dinner: crockpot dinner pot roast and veggies Snack: 2 cups of 35 lauren popcorn Wakes up to eat: no Current Exercise Activity: N/A Weight History: Pre-RYGB weight: 280 lbs (BMI 51.2). Post-RYGB ava: 160 lbs (BMI 29.3). Ht 157.5 cm (5' 2) Wt 104.8 kg (231 lb) LMP 09/03/2013 BMI 42.25 kg/m LMP 09/03/2013 Goal weight BMI < 27: 162.3 Goal weight BMI < 30: 180.3 Last 5 Encounter Wt Readings: Date: Wt: 02/25/2022 106.6 kg (235 lb) 02/15/2022 106.6 kg (235 lb) 12/07/2021 108 kg (238 lb) 12/06/2021 108.4 kg (239 lb) 12/04/2020 101.6 kg (224 lb) Risk factors: Tobacco use: No EtOH intake: Rare social NSAIDs: No H. Pylori: No (EGD 2003 prior showed barretts repeat EGD normal) FH:No, brother recently diagnosed with rectal cancer and father with liver and pancreatic ca PH: No Relevant Medications: Phen fin past Topamax started 2 weeks ago (4lbs lost and helping with nightly snacks) Vitamins/Minerals Supplements: - Vitamin D3 - Calcium 1200 mg - Multivitamin Relevant Bariatric Procedures/Surgeries Bariatric Surgeon: Jacek at [facility] Bariatric Surgery: 2003 Abisai-en-Y Gastric Bypass (RYGB) Past Medical History: PAST MEDICAL HISTORY Diagnosis Date Broken ankle Right ankle no surgery Hypothyroidism Melanoma (HCC) Pneumonia 11/25/2018 Past Surgical History: PAST SURGICAL HISTORY Procedure Laterality Date DILATION & CURETTAGE DX&/THER NONOBSTETRIC 08/05/13 Polypectomy ENDOVENOUS LASER, 1ST VEIN 07/22, 12/22, 03/24 [address]SS[address] Linton GASTRIC BYPASS HX 2005 HYSTERECTOMY HX KNEE SURGERY HX Right 11/10/2019 ACL/MCL/Miniscus LIG/TRNSXJ FLP TUBE ABDL/VAG APPR UNI/BI 2009 MELANOMA OF SKIN BIOPSY SYN RPT MELANOMA OF SKIN EXCISION SYN RPT REPAIR UMBILICAL HERNIA 2002, 2003 mesh Medications: Current Outpatient Medications Medication Sig Dispense Refill calcium citrate/vitamin D3 (CALCIUM CITRATE + D ORAL) Take 1,200 mg by mouth once daily. topiramate (TOPAMAX) 25 mg tablet Take 1 tablet with dinner. After 2 weeks, if tolerating well, increase to 2 tablets with dinner. 60 tablet 2 hydroxychloroquine (PLAQUENIL) 200 mg tablet Take 300 mg by mouth once daily. ergocalciferol, vitamin D2, (DRISDOL) 50,000 unit capsule Take 1 capsule by mouth once each week. ferrous sulfate 325 mg (65 mg iron) tablet Take 65 mg by mouth twice daily. levothyroxine (SYNTHROID) 100 mcg tablet Take 1 tablet by mouth once daily. Multivitamin capsule Take 1 capsule by mouth once daily. No current facility-administered medications for this visit. Allergies: ALLERGIES No Known Allergies Family History: No known colon cancer, polyps, IBD, celiac disease, pancreatic disease, or liver disease. FAMILY HISTORY Problem Relation Age of Onset Stroke Mother 42 DVT Mother other (CHF) Mother other (Bipolar Disorder) Mother dx after stroke Alcohol/Drug Father alcohol Diabetes Father Hypertension Father Cancer Father liver and pancreatic DVT Sister ? Social History: Social History Tobacco Use Smoking status: Never Smokeless tobacco: Never Vaping Use Vaping Use: Never used Substance Use Topics Alcohol use: No Drug use: No Tobacco: Tobacco Use: Never Alcohol: Alcohol Use: No Illicits: Drug Use: No Review of Systems: Review of Systems Constitutional: no fevers, chills, night sweats, or weight loss Cardiovascular: no chest pain Pulmonary: no shortness of breath Eyes: no visual changes or eye irritation Musculoskeletal: no myalgias or arthralgias Skin: no new or changing skin lesions, rashes or pruritis 12 point ROS otherwise negative. Physical Examination: Ht 157.5 cm (5' 2) Wt 104.8 kg (231 lb) LMP 09/03/2013 BMI 42.25 kg/m Physical Exam virtual/videocall encounter: Patient reported height 5'2 and weight 231 lbs LMP 09/03/2013 General - Normal, healthy, cooperative, in no acute distress Able to interact verbally by video conference Psych - ORIENTATION: normal to time place, person and situation Mood/Affect: AFFECT AND MOOD: Normal Head/Neuro - Normal size and shape Facial appearance normal Pulmonary - respiratory effort normal Cardiovascular - patient describes extremities normal, warm, no cyanosis,no clubbing and no edema Abdominal - Flat, Visible protrusions or hernias: No Incisions/scars: None, Areas of pain/tenderness: denies Skin - abnormal lesions not visualized Motor - patient seen sitting with Normal appearing strength and coordination ? Laboratory Data: Lab Results Component Value Date WBC 6.05 06/30/2019 WBC 3.2 (L) 12/20/2008 HCT 37.9 06/30/2019 HCT 33.5 (L) 12/20/2008 PLT 168 06/30/2019 PLT 266 12/20/2008 Lab Results Component Value Date ALB 4.0 06/30/2019 TBILI 0.7 06/30/2019 No results found for: PT, PTCTRL, PTPOC, INR No components found for: VITDT, 25VITD, 25OHVITAMIND Lab Results Component Value Date B12 405 02/22/2022 TSH Date Value Ref Range Status 10/13/2009 1.75 0.34 - 5.60 UIU/ML Final Comment: TSH: ULTRASENSITIVE METHOD- LOWER DETECTION LIMIT = 0.01 UIU/ML No components found for: GHBA1C, APTO3FSOP WBC (k/uL) Date Value 06/30/2019 6.05 RBC (m/uL) Date Value 06/30/2019 4.02 Hemoglobin (g/dL) Date Value 06/30/2019 12.3 Hematocrit (%) Date Value 06/30/2019 37.9 MCV (fL) Date Value 06/30/2019 94.3 MCH (pG) Date Value 06/30/2019 30.6 MCHC (g/dL) Date Value 06/30/2019 32.5 RDW-CV (%) Date Value 06/30/2019 12.9 Platelet Count (k/uL) Date Value 06/30/2019 168 MPV (fL) Date Value 06/30/2019 9.2 Potassium (mmol/L) Date Value 06/30/2019 3.3 Sodium (mmol/L) Date Value 06/30/2019 137 Creatinine (mg/dL) Date Value 06/30/2019 0.79 BUN (mg/dL) Date Value 06/30/2019 8 Glucose (mg/dL) Date Value 06/30/2019 138 TSH (UIU/ML) Date Value 10/13/2009 1.75 Glucose (mg/dL) Date Value 06/30/2019 138 (H) BUN (mg/dL) Date Value 06/30/2019 8 Creatinine (mg/dL) Date Value 06/30/2019 0.79 Sodium (mmol/L) Date Value 06/30/2019 137 Potassium (mmol/L) Date Value 06/30/2019 3.3 (L) Chloride (mmol/L) Date Value 06/30/2019 100 CO2 (mmol/L) Date Value 06/30/2019 24 Protein, Total (g/dL) Date Value 06/30/2019 7.1 Albumin (g/dL) Date Value 06/30/2019 4.0 Calcium (mg/dL) Date Value 06/30/2019 9.1 Alkaline Phosphatase (U/L) Date Value 06/30/2019 69 Bilirubin, Total (mg/dL) Date Value 06/30/2019 0.7 AST (U/L) Date Value 06/30/2019 21 ALT (U/L) Date Value 06/30/2019 24 Glucose (mg/dL) Date Value 06/30/2019 138 Creatinine (mg/dL) Date Value 06/30/2019 0.79 Potassium (mmol/L) Date Value 06/30/2019 3.3 AST (U/L) Date Value 06/30/2019 21 ALT (U/L) Date Value 06/30/2019 24 Hemoglobin A1C (%) Date Value 02/22/2022 5.4 Cholesterol, Total (MG/DL) Date Value 10/13/2009 173 HDL Cholesterol (MG/DL) Date Value 10/13/2009 61 ] LDL Cholesterol (MG/DL) Date Value 10/13/2009 92 Triglyceride (MG/DL) Date Value 10/13/2009 101 ] Imagin03/27/2007 CT ABD WO CONTRAST FINDINGS: The liver and spleen are normal as are both kidneys. There are postsurgical changes in the upper abdomen consistent with previous gastric bypass surgery. It should however be noted that there is a paucity of contrast in the region of the stomach and upper abdomen. I am suspicious of some periaortic adenopathy but this could also represent bowel In the lower cuts located at midline is a small ventral hernia and soft tissue density in the anterior abdomen which I believe is related to the surgery if there has been a midline incision. IMPRESSION: Postoperative changes with small ventral hernia and soft tissue prominence in the midline 2. Possible periaortic adenopathy. 3. I would doubt that the findings account for the right upper quadrant mass that is clinically suspected 12/08/2006 US RUQ ABD IMPRESSION: A single focus of comet-tail artifact originating from the nondependent gallbladder wall suggesting adenomyomatosis. Endoscopy: EGDs done at [facility] had 1 prior to RYGB in 2003 which showed barretts esophagus then follow up EGD that was normal. Assessment and Recommendations: ??51 year old female with history as per HPI, obesity class III, vitamin D deficiency, complex endometrial hyperplasia, anemia, degenerative joint disease, arthritis, positive JESSICA (follows rheum.) and hypothyroid presenting to GI/Bariatric Endoscopy clinic for evaluation of complications of bariatric procedure s/p RYGB, and weight regain. We discussed 4 options for management of obesity including lifestyle intervention, pharmacotherapy, endoscopic revision of gastric bypass revision and revisional bariatric surgery. The benefits and risks of each options were discussed with the patient. Patient is interested and would like to proceed with EGBR/TORE endoscopic revision/assessment. We also discussed the possible causes of weight regain and obesity, including inappropriate diet, lack of sufficient exercise, or anatomical breakdown of the gastric bypass (enlarged pouch, dilated gastrojejunal anastomosis, or fistula). We discussed a solid calorie diet in great detail. Patient will meet GI/Bariatric Endoscopy steam fitter supervisor and discuss lifestyle modifications and the diet protocol in detail prior to weight loss procedure. We have recommended exercise at least 4-5 times weekly. Finally, to evaluate patient's anatomy possible breakdown of the prior bariatric surgery/gastric pouch we will schedule an EGD (if not already done) to assess the surgical anatomy and pre-op labs/testing. We discussed the risks and benefits of our endoscopic therapies, including but not limited to risk of ulceration, stenosis, perforation, bleeding, leak, infections. Patient understand that it may require a post-procedure hospital admission. We reviewed the post procedure diet, which includes 45 days of liquid diet/on protein shakes. The patient is aware that all medications need to be changed (by primary doctor or prescriber) to a liquid or crushable prior to the procedure and for 6 weeks post-procedure. Patient understands the procedure does require insurance preapproval (which can take several months and it is not guaranteed) and post-procedure long-term/longitudinal follow up in our multidisciplinary weight management program/clinics. All questions were answered and patient expressed verbal understanding and agreement with plan. Recommendations: - EGD to check barretts esophagus and assess anatomy - See GI Bariatric Endoscopy Dietitian Trey Ceron RD as scheduled - Counseled on importance of calorie counting - Solid calorie diet of 1200kcal per day - Emphasized need for aerobic exercise, low-impact exercises and resistance training - Increase goal oriented exercise with resistance training as tolerated - Patient is very motivated and making changes to her life style in order to curb the weight regain and lose weight - We have recommended exercise at least 4-5 times weekly - RTC after EGD complete VIRTUAL VISIT I spent a total of 60 minutes during this real-time, interactive virtual clinical encounter, which was conducted virtually using HIPAA compliant videoconferencing technology. Greater than 50% of the time spent was devoted to counseling and coordinating care including review of records, pertinent lab data and studies, as well as discussing diagnostic evaluation and work up, planned therapeutic interventions and future disposition of care. This includes any additional research needed to obtain further information in formulating the plan of care of this patient. This includes counseling the patient about her disease and diagnosis, specifically: complications of bariatric procedures s/p RYGB and weight gain, obesity class III, barretts esophagus. We reviewed coronavirus precautions including avoiding public places, maintaining 6 feet of distance from other persons when in public, no sick contacts, and fastidious handwashing. Thank you for allowing me to participate in the care of your patient. If you have any questions or concerns, please feel free to contact me. Maranda Castro APRN.CNP GI Bariatric Endoscopy 03/06/2022 1:49 PM documented in this encounter [facility] 02-25-[address] - 02/25/2022 11:49 AM EDT Nutrition Action Plan 1. Protein: Continue to strive for 85 g protein per day. Eat protein first at all meals. Lean meats, low fat/part skim dairy products, peanut butter, eggs, beans. 2. Eat 4 small meals per day or 3 meals and 1-2 small snacks for additional protein 3. Fluids: 64 oz per day, minimum. No carbonation, no caffeine, no calories, no alcohol. 4. Vitamin/minerals: Take daily multivitamin with 200 % daily value for all vitamin/minerals plus VIt D3 3,000 IU, Vit B12 500 mcg, Iron 45 mg and calcium citrate 7583-0728 mg/day . It is okay to use combination vitamin/minerals to reduce pill volume. Page 49 of Your Guide to Surgery 5. Exercise: strive for daily activity - combine strength training and cardio for best workouts. Goal is 30 minutes 5-6x per week. 6. Practice these: Eat in this order protein first, vegetable and fruit second and whole grain carbohydrates last. * Separate eating and drinking by 30 minutes * Chew your food 20-30x per bite * Meals should last 30 minutes. 7. Track meals and snacks with an shen; caloric goal= 7712-3778 calories per day Follow Up on 05/24/22 at 8AM documented in this encounter [facility] 02-25-2022 History of Present illness Narrative [facility] Nutrition Therapy: Virtual Consult - Initial Assessment This visit was performed virtually due to the COVID-19 epidemic as an effort to protect patients and minimize exposure. Consent from patient received to conduct visit virtually. This Team Access Model visit is a virtual encounter. It required patient-provider interaction for the medical decision making as documented below. Patient states reason for visit: establishing care s/p RYGB (2003) Activity: Patient's exercise is: Activities of Daily Living: Active 50% of the day. 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) Additional Activity: Sedentary (Little or no exercise: <1x/week) Diet History: Breakfast: shakes mixed with ice, 1/2 banana, spinach, low sugar almond milk, and protein powder (28 gm pro) Snack: algerian yogurt (~15 gm pro) OR string cheese (8 gm pro) Lunch: salad with 3oz chicken (21 gm pro), vegetables, mozzarella cheese, and ranch/balsamic dressing OR leftovers from dinner Snack: fruit Dinner: home delivery subscription: 4oz lean meat (28 gm pro), 1/2c carbohydrate, and vegetables Snack: cheese and crackers OR chips OR popcorn OR candy Fluids: 1c coffee with minimal creamer, 1 can coke zero, 72-96oz water Vitamins/Supplements: 65-130 mg iron, women's once daily MVI, 50,000 international unit(s) vitamin D, 1200 mg calcium citrate Other Details -reports mindless eating in the evenings -eats slowly most of the time -drinks with meals -alcohol rarely -stress is high; work and school (jacqueline well) -reports sporadic sleep; 6 hours, but may not be restful ANTHROPOMETRICS Height per patient: 62 Weight per patient: 235# Most recent height and weight per EPIC Height: Last 1 Encounter Ht Readings: Date: Ht: 12/06/2021 157.5 cm (5' 2) Weight: Last 1 Encounter Wt Readings: Date: Wt: 02/15/2022 106.6 kg (235 lb) Body mass index is 42.98 kg/m . Malnutrition Screening Significant unintentional weight loss? No Eating less than 75% of usual intake for more than 2 weeks? No Educational materials provided: BMI Nutrition Guidelines and Vitamins & Minerals after Gastric Bypass or Gastric Sleeve and Healthy Lunch/Dinner Plate and Healthy Snacks 18 years post op RYGB ([facility]) Net weight loss 50 lbs (285 lbs initial) Pre-surgery weight: 270 pounds 17.5 % TWL less than expected weight loss Ava Weight: 160 lbs Desired Weight: under 200 lbs Diet recall indicates consistent meal pattern with regular meals and snacks. Patient tolerates Phase V diet plan without complaints. Most meals fit the healthy plate model as recommended. Mindless snacking in the evenings may limit desired weight loss. Patient does not currently exercise, which may limit desired weight loss as well. She eats slowly, but does not separate fluid from foods at meal/snack times as recommended. She currently takes Topirimate under the supervision of Parveen Tobias CNP. Patient has not yet noticed any benefit/changes after only taking it for 1 week. 1200+ calories/day meets recommendations 85 gm protein intake/day meets recommendations 64+oz fluid intake/day meets recommendations, but coffee and carbonated soda pop do not meet recommendations Consistent with vitamin/minerals, but likely inadequate in B vitamins and zinc Labs reveal WNL Resting Metabolic Rate: 1642 Energy needs for weight loss 0320-7173 Protein needs: 85 grams protein per day (1.2 g/kg IBW) Nutrition Diagnosis: Altered Gastrointestinal Tract Function, related to, S/P bariatric surgery, as evidenced by patient report and past surgical history and Overweight/obesity, related to, food/nutrition - related knowledge deficit and physical inactivity, as evidenced by BMI above normative standard for age and gender. Nutrition Intervention: Modify type and amount of food consumed for meals and snacks: 1. Protein: Continue to strive for 85 g protein per day. Eat protein first at all meals. Lean meats, low fat/part skim dairy products, peanut butter, eggs, beans. 2. Eat 4 small meals per day or 3 meals and 1-2 small snacks for additional protein 3. Fluids: 64 oz per day, minimum. No carbonation, no caffeine, no calories, no alcohol. 4. Vitamin/minerals: Take daily multivitamin with 200 % daily value for all vitamin/minerals plus VIt D3 3,000 IU, Vit B12 500 mcg, Iron 45 mg and calcium citrate 9893-4057 mg/day . It is okay to use combination vitamin/minerals to reduce pill volume. Page 49 of Your Guide to Surgery 5. Exercise: strive for daily activity - combine strength training and cardio for best workouts. Goal is 30 minutes 5-6x per week. 6. Practice these: Eat in this order protein first, vegetable and fruit second and whole grain carbohydrates last. * Separate eating and drinking by 30 minutes * Chew your food 20-30x per bite * Meals should last 30 minutes. 7. Track meals and snacks with an shen; caloric goal= 5636-2574 calories per day Nutrition Monitoring & Evaluation: BMI <40 Criteria: weight check and patient report Need for Follow up: 3 months as scheduled MNT Billing Type: Initial Assess/15 min 2 units Signed by: Roberth Chamorro RD documented in this encounter [facility] 02-15-2022 Instructions Parveen Tobias APRN.REPORT CLERK - 02/15/2022 4:44 PM EDT Images from the original note were not included. Mutually Agreed Upon Goals Eating Plan: Med ePad Pal SHEN - Log intake 2 days per week. Protein 75-90 grams per day. Replace skipped meals with a protein supplement. [place] Healthy Plate. Establish with BMI nutrition. Activity: Commit to 3 days per week of physical activity, consider chair yoga. Sleep: Consider home sleep study in the future if needed. Stress: SHEN for meditation - Mindful Moments by [facility]. https://www.Mopapp/health /mental-health/rna-qnqqqivbgg-wyw cdy-oykspvc-cscm#our-picks https://www.[facility].[place].edu/nutr itionsource/yfylfex-mddcci-vbgvh/ [place] healthy Eating Plate: Make most of your meal vegetables and fruits - of your plate: Aim for color and variety, and remember that potatoes don t count as vegetables on the Healthy Eating Plate because of their negative impact on blood sugar. Go for whole grains - of your plate: Whole and intact grains--whole wheat, barley, wheat berries, quinoa, oats, brown rice, and foods made with them, such as whole wheat pasta--have a milder effect on blood sugar and insulin than white bread, white rice, and other refined grains. Protein power - of your plate: Fish, poultry, beans, and nuts are all healthy, versatile protein sources--they can be mixed into salads, and pair well with vegetables on a plate. Limit red meat, and avoid processed meats such as alonso and sausage. Healthy plant oils - in moderation: Choose healthy vegetable oils like olive, canola, soy, corn, sunflower, peanut, and others, and avoid partially hydrogenated oils, which contain unhealthy trans fats. Remember that low-fat does not mean healthy. Drink water, coffee, or tea: Skip sugary drinks, limit milk and dairy products to one to two servings per day, and limit juice to a small glass per day. Stay active: The red figure running across the Healthy Eating Plate s placemat is a reminder that staying active is also important in weight control. Recipe ideas https://www.[facility].[place].edu/nutr itionsource/faphqii-cvzzrrvn-qwzz / Low Energy and Chronic Fatigue Even one night of poor sleep can leave people feeling like zombies shuffling through the day. So imagine the impact that months--or even years--of restless sleep can have on energy levels. Similar to a phone s Battery-Saver Mode, when experiencing lower energy levels, we conserve the little energy we have by performing only essential tasks (like eating and going to work) and avoiding the non-essential ones (like going grocery shopping or to the gym). This can lead to eating unhealthy foods out of convenience and sitting still for longer periods of time. Slow Metabolism Your metabolism refers to the rate at which your body solis the calories you consume. When you re fatigued, your lifestyle becomes less active and you ll expend fewer daily calories. Over a period of time, this lifestyle change can lead to an actual drop in your metabolism, making you more likely to gain weight even without increasing your caloric intake. Hormonal Changes If you re not getting restful sleep because your airway is blocked and you have disordered breathing with obstructive sleep apnea, your body is fighting against you. The hormonal imbalance that results from poor sleep makes weight loss nearly impossible. The lack of quality sleep will put your body under enough stress to disrupt your hormone production. Leptin, the hormone responsible for sending fdkz-yuwjkbq-fg-full signals to your brain after eating, decreases when you re sleep deprived. And to make matters worse, ghrelin--the hormone responsible for sending I m-hungry signals--increases. So when you don t get enough good sleep, your hormones tell you to eat more and won t signal you to stop. documented in this encounter [facility] 02-15-2022 History of Present illness Narrative Images from the original note were not included. BMI Obesity Medicine Consult Distance Health Visit 02/15/22 Virtual Visit (Audio/Visual)I have discussed the nature of this visit with the patient which will occur via Distance Health (Phone, Virtual Visit) and she agrees to proceed with this interaction. Patient Summary: Melissa Nichols is a 51 year old female with obesity who presents to the [facility] for an initial evaluation of her obesity and is interested in behavioral and pharmacological weight loss approaches. Primary reason for wanting obesity treatment : to be healthier Overall goal: below 200 lbs Weight History: She reports a strong family history of obesity and early onset weight gain. She states her weight gain is related to the following factors, including inactivity, hypothyroidism, pregnancies. History of RYGB: Index Surgery Date of Surgery: 04/2004 Surgeon: [facility] Archer Surgical Procedure: Lap RYGB Pre-surgical weight: 270 lb Ava weight: 160 lbs Weight Graph: (please see graph scanned in chart) Obesigenic Medications: NO Diet: Quality of diet: 24hr recall suggests unhealthy diet. Breakfast: algerian yogurt with fruit with granola or eggs or protein shake Lunch: leftovers or chicken/rice/veggies Dinner: 1-2 times a week she eats out. chicken, veg, and starch (potato or rice) Snacks: evening snacking: sweets or popcorn or cheese/crackers or fruit Drinks: water, coke zero ETOH: very rarely. Characterization of diet:Structured, unhealthy snacking, excessive cravings, and evening snacking. 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 DAILY SUPPLEMENTS: Calcium: Calcium Citrate w/ vitamin D (1200 - 1500mg) Multivitamin & Minerals: 1 per day generic multivitamin (not bariatric) Iron Supplement: 45-60 mg Vitamin B12: No Vitamin D3: weekly high dose vitamin D 50,000 Anti-Obesity Medications >Phentermine: No uncontrolled HTN, No CVD Hx or hx of seizure disorder. No MAOI inhibitor use. No drug abuse hx. Crcl > 15. >Topiramate/zonisamide: No seizure or kidney stone hx. - hx of migraines, + hx of poor sleep in spirts. - Child bearing age. >Qsymia: see above >Contrave: No contraindications. Could affect mood. No uncontrolled HTN or hx of seizure disorder (lowers threshold for seizures). No MAOI inhibitor use. No opiate use. >Saxenda/Wegovy/Ozempic: Cost. Ins coverage? No. >Metformin: No contraindications or medication interactions. eGFR > 30. Exercise: Regular exercise: No Strength/resistance exercise:No Barriers to regular exercise? joint pain and time. 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 Work-related activity:2 days a week active otherwise sedentary. ?Sleep: Duration: 6-7 hours. QI NO ; CPAP NO Quality:wakes unrefreshed. takes Tylenol PM 1 tab 3 days a week, Sleep-wake cycle disruption:hip or knee pain and wakes to use the restroom at least one per night STOP BANG 1. Snoring : Do you snore loudly (louder than talking, through closed doors)? NO 2. Tired : Do you often feel tired, fatigued, or sleepy during daytime? YES 3. Observed : Has anyone observed you stop breathing during sleep?NO 4. Blood Pressure: treated for high blood pressure?NO 5. BMI : BMI more than 35 kg/m2? YES 6. Age : Age over 50 yr old? NO 7. Neck circumference: Neck circumference greater than 40 cm?NO 8. Gender : Gender male? NO STOP BANG Score 2 , low ??Stress: Some, Cause:Work and personal Obesity Related Comorbidities: Prior Weight Loss Surgery:yes, see above ACTIVE PROBLEM LIST Complex Endometrial Hyperplasia Anemia Djd (Degenerative Joint Disease) History of Gastric Bypass Hypocalcemia Hypothyroidism Positive Jessica (Antinuclear Antibody) Vitamin D Deficiency Pain in Right Knee S/P Acl Reconstruction Impaired Range of Motion of Right Knee Decreased Strength Involving Knee Joint Abnormality of Gait + melanoma + Barrettes prior to RYGB No history of MO, COPD, asthma, peptic ulcer dx, hyperlipidemia, gallstones, hypertension, DVT, PE, CVA, T2DM, gout, kidney stones, CKD and smoking history. PAST SURGICAL HISTORY Procedure Laterality Date DILATION & CURETTAGE DX&/THER NONOBSTETRIC 08/05/13 Polypectomy ENDOVENOUS LASER, 1ST VEIN 07/22, 12/22, 03/24 [address] Linton GASTRIC BYPASS HX 2005 HYSTERECTOMY HX KNEE SURGERY HX Right 11/10/2019 ACL/MCL/Miniscus LIG/TRNSXJ FLP TUBE ABDL/VAG APPR UNI/BI 2009 MELANOMA OF SKIN BIOPSY SYN RPT MELANOMA OF SKIN EXCISION SYN RPT REPAIR UMBILICAL HERNIA 2002, 2003 mesh Obesity ROS/ FHx GEN: Fatigue:yes CV: h/o palpitations/cardiac arrhythmia, CP:No PULM: Asthma:No GI: GERD:No; Gallstones: No; Fatty liver disease:No; H/o hernia:yes, repaired MSK: Joint Pain:yes : Nephrolithiasis:No; Stress incontinence:No Symptoms of PCOS(women):No + thyroid disorder NEURO: Migraines/MUSE:No; H/o seizures: No Glaucoma:No; Cataracts No Symptoms of pseudotumor cerebri:No Family History Problem Relation Age of Onset Stroke Mother 42 DVT Mother other (CHF) Mother other (Bipolar Disorder) Mother dx after stroke Alcohol/Drug Father alcohol Diabetes Father Hypertension Father Cancer Father liver and pancreatic DVT Sister PREV: PAP n/a hysterectomy, Mammogram UTD and Colonoscopy Not UTD Social History Social History Tobacco Use Smoking status: Never Smokeless tobacco: Never Vaping Use Vaping Use: Never used Substance Use Topics Alcohol use: No Drug use: No 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 General appearance: NAD Mental status: awake and alert Pulm: not visibly SOB Neuro: speech fluent Results: reviewed with the patient No visits with results within 3 Month(s) from this visit. Latest known visit with results is: Admission on 06/30/2019, Discharged on 06/30/2019 Component Date Value Ref Range Status Protein, Total 06/30/2019 7.1 6.3 - 8.0 g/dL Final Albumin 06/30/2019 4.0 3.9 - 4.9 g/dL Final Calcium 06/30/2019 9.1 8.5 - 10.2 mg/dL Final Bilirubin, Total 06/30/2019 0.7 0.2 - 1.3 mg/dL Final Alkaline Phosphatase 06/30/2019 69 34 - 123 U/L Final AST 06/30/2019 21 13 - 35 U/L Final Glucose 06/30/2019 138 (A) 74 - 99 mg/dL Final BUN 06/30/2019 8 7 - 21 mg/dL Final Creatinine 06/30/2019 0.79 0.58 - 0.96 mg/dL Final Sodium 06/30/2019 137 136 - 144 mmol/L Final Potassium 06/30/2019 3.3 (A) 3.7 - 5.1 mmol/L Final Chloride 06/30/2019 100 97 - 105 mmol/L Final CO2 06/30/2019 24 22 - 30 mmol/L Final Anion Gap 06/30/2019 13 9 - 18 mmol/L Final ALT 06/30/2019 24 7 - 38 U/L Final eGFR- 06/30/2019 >60 Final eGFR-All Other Races 06/30/2019 >60 . Final WBC 06/30/2019 6.05 3.70 - 11.00 k/uL Final RBC 06/30/2019 4.02 3.90 - 5.20 m/uL Final Hemoglobin 06/30/2019 12.3 11.5 - 15.5 g/dL Final Hematocrit 06/30/2019 37.9 36.0 - 46.0 % Final MCV 06/30/2019 94.3 80.0 - 100.0 fL Final MCH 06/30/2019 30.6 26.0 - 34.0 pG Final MCHC 06/30/2019 32.5 30.5 - 36.0 g/dL Final RDW-CV 06/30/2019 12.9 11.5 - 15.0 % Final Platelet Count 06/30/2019 168 150 - 400 k/uL Final MPV 06/30/2019 9.2 9.0 - 12.7 fL Final Neut% 06/30/2019 80.7 % Final Abs Neut (ANC) 06/30/2019 4.89 1.45 - 7.50 k/uL Final Lymph% 06/30/2019 9.6 % Final Abs Lymph 06/30/2019 0.58 (A) 1.00 - 4.00 k/uL Final Centre% 06/30/2019 9.3 % Final Abs Centre 06/30/2019 0.56 <0.87 k/uL Final Eosin% 06/30/2019 0.2 % Final Abs Eosin 06/30/2019 <0.03 <0.46 k/uL Final Baso% 06/30/2019 0.2 % Final Abs Baso 06/30/2019 <0.03 <0.11 k/uL Final Specimen Source. 06/30/2019 Nasopharyngeal Swab Final Influenza A PCR 06/30/2019 Negative for Influenza A by RT PCR Final Influenza B PCR 06/30/2019 Negative for Influenza B by RT PCR Final Impression: Melissa Nichols is a 51 year old female with Class III obesity (Body mass index is 42.98 kg/m .) who has adult onset obesity with several periods of weight loss followed by weight gain . History of RYGB Date of Surgery: 04/2004 at [facility], surgical procedure: Lap RYGB, pre-surgical weight: 270 lb, ava weight: 160 lbs. The causes of her obesity are multifactorial, biological, psychological and social and environmental. Specific factors include a genetic component related to a strong family of obesity, increased consumption of high calorie/process foods, suboptimal physical activity, and post weight retention. She has no significant weight-related medical comorbidities which increase her cardiovascular mortality risk. There are additional metabolic obesity complications including possible obstructive sleep apnea. Other medical conditions as above. Regarding her lifestyle, as above, she has several behavioral contributors; her physical activity is non-existent. Overall, it is clear that her quality of life is moderately compromised by her weight. It is likely a combination of weight loss therapies will be needed. She appears motivated today. Plan: -- Based on the severity and resistance of the obesity to more conservative weight loss approaches, I believe a combination of behavioral and pharmacological intervention is the best and most appropriate computer terminal operator therapeutic option. -- We discussed several strategies to track food intake and increase mindfulness around eating. She was counseled on Food records and healthy plate and protein intake (75-90 grams per day). Also recommended establishing with the bariatric RD. -- Encouraged the patient to improve her physical activity as able given time restraints and joint pain. Recommended starting with committing to 3 days a week of physical activity, recommended chair yoga. Although cardiovascular exercise is most beneficial for weight loss initially, we discussed healthy muscle from a combination of resistance training and cardiovascular exercise is the best computer terminal operator plan. An overall goal of 200 minutes per week of exercise has been effective in weight loss and maintenance. -- Discussed AOM's at length. Will trial topiramate for evening cravings. Discussed common s/e and provided the pt with drug information via Flamsred message. Start topiramate 25 mg with dinner. After 2 weeks, if tolerating well, increase to 50 mg with dinner. -- Referral to Bariatric Endoscopy to possibly assess pouch. -- Labs: Folate, HgB A1C, PTH, vitamin B1, and vitamin B12. -- Consider HSAT for possible QI. -- follow-up visit for management of above interventions 2-3 months. Mutually Agreed Upon Goals Eating Plan: Opsens SHEN - Log intake 2 days per week. Protein 75-90 grams per day. Replace skipped meals with a protein supplement. AdaptiveBlue. Establish with BMI nutrition. Activity: Commit to 3 days per week of physical activity, consider chair yoga. Sleep: Consider home sleep study in the future if needed. Stress: SHEN for meditation - Mindful Moments by [facility]. [email or web address]/health /mental-health/qmt-aropsgqltc-rcq dlm-oxopjop-qgik#our-picks I spent a total of 55 minutes on the date of the service which included preparing to see the patient, [id number] patient care, completing clinical documentation, obtaining and/or reviewing separately obtained history, performing a medically appropriate examination, counseling and educating the patient/family/caregiver, and ordering medications, tests, or procedures. Parveen Tobias APRN.WALKER documented in this encounter [facility] 12-07-2021 Instructions Joana Carrera APRN.CNP - 12/07/2021 2:34 PM EDT 30 grams protein for breakfast Walk 15 minutes after each meal Protein Try for 70 gms a day documented in this encounter [facility] 12-07-2021 History of Present illness Narrative CC: Patient presents with: Weight Management HPI Melissa Nichols is a 51 year old female who presents today for above. Gastric bypass 2004 - highest weight 280, lowest weight 160. Weight increasing since 2010. Has not followed with obesity medicine or surgeon. Has gained most weight in past 3 years after knee injury and then ankle injury earlier this year. Has become more sedentary. 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 Able to eat 3/4 of what she was able to prior to surgery. 2019 - lost 15 lbs on keto but quickly gained it back. States has lack of motivation and has been unable to find any lately. Takes daily bariatric vitamins, weekly Vit D. Hypothyroid - on medication. Weight/BMI Last 1 Encounter Wt Readings: Date: Wt: 12/07/2021 238 lb (108 kg) BMI 43.53 kg/(m^2) Last visit Wt: 239 lb (108.4 kg) BMI: 43.71 kg/(m^2) WT 12/03/2019 208 DIET Daily serving of fruits:2 Daily serving of vegetables:3-4 Daily serving of protein:30 grams Fluid intake:Water: 7 glasses per day Soda: Coke zero 1-2 cans/day Do you Skip meals:NO Food Behaviors: 3 meals a day, snack in the afternoon - cheese and fruit. Night-time eating - ice cream, popcorn, cheese and crackers Dumping if she eat too many sweets. Eating away from home:YES Sit down restaurantOnce weekly or less often Exercise routine: NO ROS as above, otherwise non-contributory. Reviewed PMHx, PSHx, social Hx, medications and allergies. PHYSICAL EXAM Wt 238 lb (108 kg) LMP 09/03/2013 BMI 43.53 kg/m General Appearance: well appearing, in no acute distress, alert Pysch: mood and affect broad and appropriate Chest:: normal inspiratory effort ASSESSMENT/PLAN: 1. Class 3 severe obesity with serious comorbidity and body mass index (BMI) of 40.0 to 44.9 in adult, unspecified obesity type (HCC) - ICD9: 278.01, V85.41, ICD10: E66.01, Z68.41 (primary diagnosis) Weight increasing - Behavioral intervention and - e-Coaching - CONSULT BAR[facility]ATRIC[facility] - CONSULT TO ECOACHING WELLNESS 2. Osteoarthritis of both knees, unspecified osteoarthritis type - ICD9: 715.96, ICD10: M17.0 - CON[facility]ULT [facility] 3. Polyarthralgia - ICD9: 719.49, ICD10: M25.50 - CON[facility]ULT [facility] 4. History of Abisai-en-Y gastric bypass - ICD9: V45.86, ICD10: Z98.84 - [facility]ULT [facility] Follow-up as needed. Joana Carrera APRN.REPORT CLERK I spent a total of 35 minutes on the date of the service which included preparing to see the patient, [id number] patient care, completing clinical documentation, obtaining and/or reviewing separately obtained history, performing a medically appropriate examination, counseling and educating the patient/family/caregiver and ordering medications, tests, or procedures. documented in this encounter [facility] 12-06-2021 History of Present illness Narrative Medical Payment Poster offered: Patient declinesTobi Magana is a 51 year old who presents for an annual gynecologic exam with complaints, weight gain. Menses: hysterectomy. Contraception: hysterectomy HPV vaccine: N/A Last Pap: 07/27/2012 normal HPV: 07/21/2012 negative History of abnormal pap: Yes Last mammogram: 2020normal [facility] Sexually active: Yes Pain with intercourse: No Postcoital bleeding: No Vaginal dryness: No OB History T0 L2 SAB1 IAB0 Ectopic0 Multiple0 Live Births0 Mental Health Clinician History LMP: 09/03/2013, Hysterectomy Age at Menarche: Age at First : Age at Menopause: Mental Health Clinician History Comments: Sexual Activity: Yes; Female, Male; Hysterectomy Contraception: Tubal Ligation PAST MEDICAL HISTORY Diagnosis Date Broken ankle Right ankle no surgery Hypothyroidism Melanoma (HCC) Pneumonia 11/25/2018 PAST SURGICAL HISTORY Procedure Laterality Date DILATION & CURETTAGE DX&/THER NONOBSTETRIC 08/05/13 Polypectomy ENDOVENOUS LASER, 1ST VEIN 07/22, 12/22, 03/24 [address] Linton GASTRIC BYPASS HX 2005 HYSTERECTOMY HX KNEE SURGERY HX Right 11/10/2019 ACL/MCL/Miniscus LIG/TRNSXJ FLP TUBE ABDL/VAG APPR UNI/BI 2009 MELANOMA OF SKIN BIOPSY SYN RPT MELANOMA OF SKIN EXCISION SYN RPT REPAIR UMBILICAL HERNIA 2002, 2003 mesh FAMILY HISTORY Problem Relation Age of Onset Stroke Mother 42 DVT Mother other (CHF) Mother other (Bipolar Disorder) Mother dx after stroke Alcohol/Drug Father alcohol Diabetes Father Hypertension Father Cancer Father liver and pancreatic DVT Sister SOCIAL HISTORY Social History Tobacco Use Smoking status: Never Smoker Smokeless tobacco: Never Used Vaping Use Vaping Use: Never used Substance Use Topics Alcohol use: No Drug use: No REVIEW OF SYSTEMS Abdomen: No abdominal pain, nausea, vomiting, diarrhea, or constipation. No bloating, early satiety, indigestion, or increased flatulence. Bladder: No dysuria, gross hematuria, urinary frequency, urinary urgency, or incontinence. Breast: No breast lumps, nipple d/c, overlying skin changes, redness or skin retraction. Allergies and current medication updated:Yes EXAM: BP 120/76 Ht 5' 2 (1.58m) Wt 239 lb (108.4kg) LMP 09/03/2013 BMI 43.70 kg/(m^2). GENERAL: pleasant, female in no apparent distress HEENT: Normocephalic, atraumatic, mucus membranes moist and no lesions NECK: Supple, full range of motion, no adenopathy and thyroid normal DERMATOLOGY: Normal, without lesions, non-icteric and non-hirsute BREAST: soft, non-tender, symmetric, no dominant mass, normal nipple-areolar complex, no lymphadenopathy and no nipple discharge CHEST: Normal inspiratory effort ABDOMEN: soft, non-tender and no masses PELVIC: external genitalia normal, normal Bartholin's glands, urethra, [place]'s glands, no vulvar lesions, physiologic discharge present, normal appearing perineal body and perianal region, cervix surgically absent BIMANUAL: no adnexal masses, non-tender and uterus surgically absent RECTOVAGINAL: deferred. NEURO: alert and oriented x3,exam grossly non-focal EXTREMITIES: normal ASSESSMENT/PLAN: 1) Health maintenance: Pap/HPV up to date. Mammogram up to date . Nutrition, exercise and routine health maintenance exams reviewed. 2) Contraception: hysterectomy. Contraceptive options reviewed and information provided. 3) STD screening: Declined STD check. 4) Follow up one year or sooner as needed Ana M Sotelo APRN.CNP documented in this encounter [facility] 09-25-2021 History of Present illness Narrative Episode Visit Count: 12 Therapist That Will Oversee The Plan Of Care: Kaya Avila Start of Care Date: 08/07/21 Onset Date: 06/26/21 Plan of Care Certification Date: 11/19/19 Next Certification Due Date: 04/14/20 REHABILITATION AND SPORTS THERAPY PHYSICAL THERAPY DISCONTINUANCE OF CARE PLAN OF CARE UPDATE: Assessment: Melissa Nichols is discontinued from Physical Therapy services due to goal achievement and maximal benefit. and Patient/Clinician mutual decision to discontinue current plan of care.. Patient was seen for 12 visits from Start of Care Date: 08/07/21 to 09/25/2021 and treatment included: Therapeutic exercise, Neuromuscular re-education, Manual therapy, Therapeutic activities, Gait training and Patient/Family/Caregiver Education. Goals for Episode of Care: created on 08/07/21 through 09/21/21 [place] in home exercise program. Patient will decrease pain to 1/10 with functional activities to allow patient to improve ambulation, standing tolerance for ADLs and work related activities. Patient will increase active ROM of R ankle to wnl, symmetrical & painfree to allow pt to to improve postural alignment, to improve performance of ADLs and to improve gait mechanics / gait pattern . Patient will demonstrate increase in R LE strength to 5/5 during manual muscle testing in order to improve function for basic self-care tasks, home management tasks, leisure / recreation skills, prior functional tasks and work tasks. Patient will Improve Timed Up and Go to 6 seconds to demonstrate decreased risk of falling. Normal gait. Reciprocal stair negotiation. Patient will increase balance to 30 seconds for single limb stance on RLE. Patient Goals: full recovery, get back to baseline SUBJECTIVE: Patient Reason for Visit: doing well with minimal to no ankle pain other than mild stiffness. had a little soreness & swelling after doing yardwork the other day but feels better today. Pain: Pain Pain Level: 0 Description: Stiffness Worst Pain Level: 2 PROMIS Scales Higher is Better 01/13/2020 08/06/2021 Phys Func - Score 45 (within normal limits) 36 (moderate dysfunction) Phys Func - Percentile 31 % 8 % Social Roles - Score 51 (within normal limits) 42 (mild dysfunction) Social Role - Percentile 54 % 21 % GH Physical - Score 47.7 42.3 (Good) GH Physical - Percentile 41 % 22 % GH Mental - Score 53.3 50.8 (Very Good) GH Mental - Percentile 63 % 53 % Self-Eff Symptom - Score 46 (Average) 52 (Average) Self-Eff Symptom - Percentile 34 % 58 % T-scores: mean of general population = 50. 5 points is clinically meaningfully difference Percentiles provide an indication of how the patient's score ranks in relation to the general population. Higher percentile rankings indicate better function/quality of life. 50th percentile is the average of the general population and indicates half of respondents had a worse score. Lower is Better 01/13/2020 08/06/2021 Fatigue - Score 51 (within normal limits) 57 (mild) Fatigue - Percentile 46 % 24 % T-scores: mean of general population = 50. 5 points is clinically meaningfully difference Percentiles provide an indication of how the patient's score ranks in relation to the general population. Higher percentile rankings indicate better function/quality of life. 50th percentile is the average of the general population and indicates half of respondents had a worse score. OBJECTIVE MEASURES WITH LEVEL OF FUNCTION: LE AROM R LE AROM: R ankle wnl, painfree & symmetrical except slight restriction with PF LE Strength R LE Strength: grossly 4+ to 5/5 & painfree R Ankle Plantar Flexion: 4+/5 Functional Strength R Single Leg Heel Raise: 14 L Single Leg Heel Raise: 24 Gait Gait Device: None Gait Observation: normal gait Stairs Device: Rail (or none) Number of Stairs: 10 Stairs: reciprocal Balance Single Leg Stance: > 30 seconds R/L TREATMENT: Therapeutic Exercise: 1: standing heel raises 10xB, SL 10xL/R 2: B calf stretch on slant board x1' 3: SLS activities L/R 4: heel & toe walking 5: recheck. discussed progress & reviewed HEP Skilled Intervention: Patient was educated in proper exercise technique and purpose for exercises. Skilled judgment was provided in selection of appropriate interventions. Correct performance of therapeutic exercises was facilitated with verbal and visual cuing. Educated patient on rationale for performing exercises in regards to increase ease of ADL and ROM and function. Patient education as noted. Billing HEALTH SYSTEM Session Start Time : 1340 HEALTH SYSTEM Session Stop Time : 1405 Therapeutic Exercise Treatment Minutes: 25 Total Treatment Time Minutes (timed/untimed): 25 Monique Avila PT documented in this encounter [facility] 09-19-2021 History of Present illness Narrative Episode Visit Count: 11 Therapist That Will Oversee The Plan Of Care: Kaya Avila Start of Care Date: 08/07/21 Onset Date: 06/26/21 Plan of Care Certification Date: 11/19/19 Next Certification Due Date: 04/14/20 Patient Identified by Name and Date of : Yes REHABILITATION AND SPORTS THERAPY PHYSICAL THERAPY TREATMENT NOTE ASSESSMENT: Melissa Nichols tolerated the session with no issues. She demonstrated improvements in single leg stance right lower extremity , and reciprocal stair mobility without use of rail , difficulty with single leg calf raise right . The patient will continue to benefit from ongoing skilled physical therapy to progress toward set goals and for reassessment by supervising therapist. PLAN FOR NEXT VISIT: recheck and probable discharge next visit , review HEP SUBJECTIVE: Patient Reason for Visit: patient reports doing alot of spring cleaning today , slight swelling right ankle, reported difficulty with sls right le Pain: Pain Pain Level: 0 Pain Location: Ankle - Right Post Treatment Pain Post Treatment Pain Level: No Change OBJECTIVE MEASURES WITH LEVEL OF FUNCTION: TREATMENT: Therapeutic Exercise: 3: long sitting right ankle plantar flexion dorsi flexion 10 x 2 ceballos tb , eversion inversion purple tb 10 x each , ceballos tb 10 x each 4: left sidelying right hip abduction 2 # 10 x 2 5: standing right single leg calf raise 8 x with decreased ROM , left 10 x 6: sls right 22 seconds 2 x, sls left 30 seconds 7: standing with right foot on 2nd 6 inch step , forward lunge right for talo crural joint 10 x 2 Skilled Intervention: Patient was educated in proper exercise technique and purpose for exercises. Skilled judgment was provided in selection of appropriate interventions. Manual Therapy: 1: patient long sitting right heel cord stretch with distraction , followed by calcaneal distraction with a/p mob of talo crural joint 6 min Skilled Intervention: Manual skills to improve joint mobility, ROM, and decrease pain. Utilized anatomy knowledge of the therapist, and assessment of patient's response to intervention. Gait Trainin: reciprocal stair mobility without rail 10 steps x 2 pre talo crural mob , 10 steps , post , patient without pain post talo crural mob Skilled Intervention: Educated patient on need to have mobility in right talo crural joint to descend stair with left lower extremity Billing HEALTH SYSTEM Session Start Time : 1600 BW Session Stop Time : 1640 Therapeutic Exercise Treatment Minutes: 25 Manual TherapyTreatment Minutes: 6 Gait Training Treatment Minutes: 9 Total Treatment Time Minutes (timed/untimed): 40 Kelby Hernandez PTA documented in this encounter [facility] 09-06-2021 History of Present illness Narrative Episode Visit Count: 9 Therapist That Will Oversee The Plan Of Care: Kaya Avila Start of Care Date: 08/07/21 Onset Date: 06/26/21 Plan of Care Certification Date: 11/19/19 Next Certification Due Date: 04/14/20 REHABILITATION AND SPORTS THERAPY PHYSICAL THERAPY PROGRESS REPORT PLAN OF CARE UPDATE: Assessment: Melissa Nichols demonstrates improvements in rising from a chair, standing, walking, stair negotiation, physical activities, recreational activities and working. She has progressed toward goals. She presents 10 weeks s/p R ankle fracture doing well with minimal pain, good motivation and good overall mobility. Patient continues to present with impairments in strength and tissue tenderness that interfere with recreational activities . Current prognosis is good . She will benefit from continued skilled therapy services to meet the updated goals for this plan of care as noted below. Goals for Episode of Care: created on 08/07/21 through 09/21/21 [place] in home exercise program. Patient will decrease pain to 1/10 with functional activities to allow patient to improve ambulation, standing tolerance for ADLs and work related activities. Patient will increase active ROM of R ankle to wnl, symmetrical & painfree to allow pt to to improve postural alignment, to improve performance of ADLs and to improve gait mechanics / gait pattern . Patient will demonstrate increase in R LE strength to 5/5 during manual muscle testing in order to improve function for basic self-care tasks, home management tasks, leisure / recreation skills, prior functional tasks and work tasks. Patient will Improve Timed Up and Go to 6 seconds to demonstrate decreased risk of falling. Normal gait. Reciprocal stair negotiation. Patient will increase balance to 30 seconds for single limb stance on RLE. Patient Goals: full recovery, get back to baseline Planned Interventions, Frequency, and Duration: 2x/week (1-2x/wk), Total Number of Visits Planned: 12 (C9 authorized 12 visits thru 09/10) - requested date extension thru WC Patient to be seen for Therapeutic exercise (99371);Neuromuscular re-education (24017);Manual therapy (19774);Therapeutic activities (86505);Gait Training (42289);Patient/Family/Caregiver Education PLAN FOR NEXT VISIT: continue to progress R calf strength as well as R ankle proprioception & stability SUBJECTIVE: Patient Reason for Visit: reports doing well with minimal pain or deficits. thinks her mobility is pretty good but still has weakness. pt would like to finish out her PT. last f/u with ortho went well, said ankle is healing well, says she was release for full RTW but she's off for the summer anyhow. Functional Limitations: recreational activities Pain: Pain Pain Level: 1 Pain Location: Ankle - Right Description: Sore;Stiffness Frequency: Intermittent Worst Pain Level: 3 PROMIS Scales Higher is Better 01/13/2020 08/06/2021 Phys Func - Score 45 (within normal limits) 36 (moderate dysfunction) Phys Func - Percentile 31 % 8 % Social Roles - Score 51 (within normal limits) 42 (mild dysfunction) Social Role - Percentile 54 % 21 % GH Physical - Score 47.7 42.3 (Good) GH Physical - Percentile 41 % 22 % GH Mental - Score 53.3 50.8 (Very Good) GH Mental - Percentile 63 % 53 % Self-Eff Symptom - Score 46 (Average) 52 (Average) Self-Eff Symptom - Percentile 34 % 58 % T-scores: mean of general population = 50. 5 points is clinically meaningfully difference Percentiles provide an indication of how the patient's score ranks in relation to the general population. Higher percentile rankings indicate better function/quality of life. 50th percentile is the average of the general population and indicates half of respondents had a worse score. Lower is Better 01/13/2020 08/06/2021 Fatigue - Score 51 (within normal limits) 57 (mild) Fatigue - Percentile 46 % 24 % T-scores: mean of general population = 50. 5 points is clinically meaningfully difference Percentiles provide an indication of how the patient's score ranks in relation to the general population. Higher percentile rankings indicate better function/quality of life. 50th percentile is the average of the general population and indicates half of respondents had a worse score. OBJECTIVE MEASURES WITH LEVEL OF FUNCTION: Ankle Observations R Swelling: mild swelling R ankle (better in AM, worse in PM) LE AROM R LE AROM: R ankle wnl, symmetrical to L & painfree except slight pain/discomfort with end-range PF LE Strength R LE Strength: grossly 4+ to 5/5 except mild calf weakness as noted below R Ankle Plantar Flexion: 4/5 Functional Strength R Single Leg Heel Raise: 10 L Single Leg Heel Raise: 20 Gait Weight Bearing Status: FWB Gait Device: None Gait Observation: normal gait Stairs: Independent Stairs Device: Rail (none) Number of Stairs: 10 Stairs: reciprocal Balance Single Leg Stance: 8-10 seconds R, 30 seconds L TREATMENT: Therapeutic Exercise: 1: recheck, discussed progress & plans/options for PT 2: reviewed HEP 3: standing calf raises 10xB, SL 20xL, 10xR (increased difficulty R vs L d/t weakness & mild pain) 4: B calf stretch on slant board x1' 5: ankle PF with ceballos TB 15-20xR (with slight pain & discomfort, less with partial range) 6: standing SL partial calf raise/heel lift 10xR (slight pain but better than full calf raise) 7: standing calf stretch L/R (with slight medial R ankle pain) 8: B ankle AROM all planes Skilled Intervention: Patient was educated in proper exercise technique and purpose for exercises. Skilled judgment was provided in selection of appropriate interventions. Correct performance of therapeutic exercises was facilitated with verbal, visual and tactile cuing. Educated patient on rationale for performing exercises in regards to including balance, increase ease of ADL and ROM and function . Patient education as noted. Manual Therapy: 1: R ankle calcaneal distraction & TC mobilization Skilled Intervention: Manual skills to improve joint mobility, ROM, and decrease pain. Utilized anatomy knowledge of the therapist, and assessment of patient's response to intervention. Neuromuscular Re-Education: 1: SLS activites L/R Skilled Intervention: Skilled judgment used to assess appropriate program for balance and coordination activity. Gait Training: Stair Trainin steps x2 with/without HR reciprocal (without pain or difficulty) 1: gait activities Skilled Intervention: Patient was provided supervision, independence during pre-gait/gait training to prevent falls and insure safety. Education provided to patient regarding the proper sequence for stair negotiation. Billing HEALTH SYSTEM Session Start Time : 914 HEALTH SYSTEM Session Stop Time : 100 Therapeutic Exercise Treatment Minutes: 40 Manual TherapyTreatment Minutes: 3 Neuromuscular Re-Education Treatment Minutes: 2 Gait Training Treatment Minutes: 5 Total Treatment Time Minutes (timed/untimed): 50 Monique Avila PT documented in this encounter [facility] 09-04-2021 History of Present illness Narrative Episode Visit Count: 8 Therapist That Will Oversee The Plan Of Care: Kaya Avila Start of Care Date: 08/07/21 Onset Date: 06/26/21 Plan of Care Certification Date: 11/19/19 Next Certification Due Date: 04/14/20 Patient Identified by Name and Date of : Yes REHABILITATION AND SPORTS THERAPY PHYSICAL THERAPY TREATMENT NOTE ASSESSMENT: Melissa Nichols tolerated the session with no issues and continued swelling in right lower extremity . She demonstrated improvements in stability in right foot and ankle with shuttle activities. The patient will continue to benefit from ongoing skilled physical therapy to progress toward set goals and for reassessment by supervising therapist. PLAN FOR NEXT VISIT: recheck , assess swelling in right le as needed, progress right le stability , if no swelling also address right ankle ROM SUBJECTIVE: Patient Reason for Visit: patient reports increase swelling in right foot and ankle since last Friday, reports may have had right foot in gravity dependent position , but did not think the right foot and ankle should swell that much, pt reports swelling resolves with elevating right le above heart, reports no pain or redness in back kof right calf Pain: Pain Pain Level: 2 Pain Location: Ankle - Right Description: (swollen) Post Treatment Pain Post Treatment Pain Level: 0 Post Treatment Pain Location: Ankle - Right OBJECTIVE MEASURES WITH LEVEL OF FUNCTION: TREATMENT: Therapeutic Exercise: 1: shuttle bilateral le calf raise 3 bands 1 min , right single leg calf raise 2 bands 10 x 2 2: shuttle bilateral leg press on wobble board bands , 6 bands 1 minute each 3: shuttle single leg press 4 bands with valgus pull ceballos tb 1 min r/l 4: educated patient on decreasing gravity dependent positiions to decrease right le swelling, also reviewed signs and symptoms of DVT Skilled Intervention: Patient was educated in proper exercise technique and purpose for exercises. Skilled judgment was provided in selection of appropriate interventions. Patient education as noted. Manual Therapy: 1: patient supine with bilateral le elevated on a wedge, retrograde massage right calf, ankle and foot 15 min Skilled Intervention: Manual skills to improve joint mobility, ROM, and decrease pain. Utilized anatomy knowledge of the therapist, and assessment of patient's response to intervention. Billing HEALTH SYSTEM Session Start Time : 839 HEALTH SYSTEM Session Stop Time : 919 Therapeutic Exercise Treatment Minutes: 25 Manual TherapyTreatment Minutes: 15 Total Treatment Time Minutes (timed/untimed): 40 Kelby Hernandez PTA documented in this encounter [facility] 08-30-2021 History of Present illness Narrative Episode Visit Count: 7 Therapist That Will Oversee The Plan Of Care: Kaya Avila Start of Care Date: 08/07/21 Onset Date: 06/26/21 Plan of Care Certification Date: 11/19/19 Next Certification Due Date: 04/14/20 Patient Identified by Name and Date of : Yes REHABILITATION AND SPORTS THERAPY PHYSICAL THERAPY TREATMENT NOTE ASSESSMENT: Melissa Nichols tolerated the session with no issues. She demonstrated difficulty with weakness with right ankle plantar flexion and improvements in dynamic standing balance. The patient will continue to benefit from ongoing skilled physical therapy to progress toward set goals. PLAN FOR NEXT VISIT: progress rgiht calf strength , static and dynamic standing balance SUBJECTIVE: Patient Reason for Visit: patient reports general tightness through out body related to autoimmune issue Pain: Pain Pain Level: 0 Pain Location: Ankle - Right Description: Stiffness Post Treatment Pain Post Treatment Pain Level: No Change Post Treatment Pain Location: Ankle - Right Post Treatment Pain Description: (less tight) OBJECTIVE MEASURES WITH LEVEL OF FUNCTION: TREATMENT: Therapeutic Exercise: 1: nu step seat 7-5 6 min level 2 2: long sitting right ankle manual plantar and dorsifelsion stretches and right heel cord stretch 30 sec x 2 each 3: standing upper trunk rotation with 3.3 # ball toss 10 x r/l 4: side step r<=> left on round side of BOSU 10 x 5: step up right step through left on round side of BOSU 10 x 2 6: standing eccentric right ankle plantar flexion , 5 x 2, attempt sl plantar flexion right 3 x poor tchnique Skilled Intervention: Patient was educated in proper exercise technique and purpose for exercises. Skilled judgment was provided in selection of appropriate interventions. Manual Therapy: 1: long sitting a/p mob of right proximal fib head post right ankle plantar flexion stretch 3 min Skilled Intervention: Manual skills to improve joint mobility, ROM, and decrease pain. Utilized anatomy knowledge of the therapist, and assessment of patient's response to intervention. Neuromuscular Re-Education: 3: tin man forward retro leans x 10 x each standing in corner for safety 4: retro walking close sba to light cga, 20 ' x 4 Skilled Intervention: Verbal cues for posture Billing HEALTH SYSTEM Session Start Time : 834 HEALTH SYSTEM Session Stop Time : 919 Therapeutic Exercise Treatment Minutes: 30 Manual TherapyTreatment Minutes: 3 Neuromuscular Re-Education Treatment Minutes: 10 Total Treatment Time Minutes (timed/untimed): 43 Kelby Hernandez PTA documented in this encounter [facility] 08-23-2021 History of Present illness Narrative Episode Visit Count: 5 Therapist That Will Oversee The Plan Of Care: Kaya Avila Start of Care Date: 08/07/21 Onset Date: 06/26/21 Plan of Care Certification Date: 11/19/19 Next Certification Due Date: 04/14/20 Patient Identified by Name and Date of : Yes REHABILITATION AND SPORTS THERAPY PHYSICAL THERAPY TREATMENT NOTE ASSESSMENT: Melissa Nichols tolerated the session with no issues. She demonstrated improvements in R ankle ROM & strength and stair mobility. The patient will continue to benefit from ongoing skilled physical therapy to progress toward set goals. PLAN FOR NEXT VISIT: continue to progress R ankle strength & stability, stair mobility SUBJECTIVE: Patient Reason for Visit: still has some ankle pain but slowly getting better. reports minimal swelling except for the other day when she worked for 13 hours and was standing/sitting most of the day Pain: Pain Pain Level: 2 Pain Location: Ankle - Right Description: Stiffness OBJECTIVE MEASURES WITH LEVEL OF FUNCTION: LE AROM R LE AROM: R ankle nearly symmetrical to L & painfree except mild pain/soreness with PF LE Strength R Ankle Dorsiflexion (L4): 4+/5 R Ankle Plantar Flexion: 3+/5 (limited by weakness & mild pain) R Ankle Inversion: 4+/5 R Ankle Eversion: 4+/5 Gait Stairs: Independent Stairs Device: Rail Number of Stairs: 10 Stairs: reciprocal Balance Single Leg Stance: 5-10 seconds R (with minimal to no pain) TREATMENT: Therapeutic Exercise: 1: Bike L2x10' 2: standing calf raises 10xB, SL 10xL, 5xR, 10xwt-shifted to R (increased difficulty R vs L d/t weakness > pain) 3: standing calf stretch L/R 4: shuttle leg press [id number]', SL [id number] 5: shuttle calf raises 6: B calf stretch on pro-stretch x 1' Skilled Intervention: Patient was educated in proper exercise technique and purpose for exercises. Skilled judgment was provided in selection of appropriate interventions. Correct performance of therapeutic exercises was facilitated with verbal and visual cuing. Educated patient on rationale for performing exercises in regards to including balance, increase ease of ADL and ROM and function . Patient education as noted. Neuromuscular Re-Education: 1: SLS activities L/R Skilled Intervention: Skilled judgment used to assess appropriate program for balance and coordination activity. Gait Training: Stair Trainin steps reciprocal with light use of HR (minimal difficulty with reciprocal descent) 1: gait activities Skilled Intervention: Patient was provided supervision, independence during pre-gait/gait training to prevent falls and insure safety. Education provided to patient regarding the proper sequence for stair negotiation. Billing HEALTH SYSTEM Session Start Time : 834 HEALTH SYSTEM Session Stop Time : 924 Therapeutic Exercise Treatment Minutes: 40 Gait Training Treatment Minutes: 10 Total Treatment Time Minutes (timed/untimed): 50 Monique Avila PT documented in this encounter [facility] 08-21-2021 History of Present illness Narrative Episode Visit Count: 4 Therapist That Will Oversee The Plan Of Care: Kaya Avila Start of Care Date: 08/07/21 Onset Date: 06/26/21 Plan of Care Certification Date: 11/19/19 Next Certification Due Date: 04/14/20 Patient Identified by Name and Date of : Yes REHABILITATION AND SPORTS THERAPY PHYSICAL THERAPY TREATMENT NOTE ASSESSMENT: Melissa Nichols tolerated the session with no issues. She demonstrated improvements in step down left with use of arch support right lower extremity . The patient will continue to benefit from ongoing skilled physical therapy to progress toward set goals. PLAN FOR NEXT VISIT: progress sls , balteral ankle strength, assess taping and use of arch supports SUBJECTIVE: Patient Reason for Visit: patient reports taping ankle helped with descending stairs , patient reports easier to go up stairs , swelling continues but eases faster , descending stairs is still difficult Pain: Pain Pain Level: 2 Pain Location: Ankle - Right Description: Aching;Stiffness Post Treatment Pain Post Treatment Pain Level: 1 Post Treatment Pain Location: Ankle - Right OBJECTIVE MEASURES WITH LEVEL OF FUNCTION: LE AROM R Ankle Dorsiflexion: 15 Degrees R Ankle Plantar Flexion: 44 Degrees (tight and painful end feel) L Ankle Dorsiflexion: 16 Degrees L Ankle Plantar Flexion: 43 Degrees TREATMENT: Therapeutic Exercise: 1: nu step seat 7-5 level 4 ue/le 6 min 2: slant board , 2 min 3: long sitting manual right ankle calf stretch 30 sec x 2 4: *standing bilateral toe scrunch with slight sukpination 5 seconds x 5 x 2 5: llong sitting right ankle eversion /inversion blue tb 10 x 2 each 6: 4 inch and 6 inch step downs left with ue support Skilled Intervention: Patient was educated in proper exercise technique and purpose for exercises. Reviewed and educated patient on additions/changes for home exercise program as above (*). Skilled judgment was provided in selection of appropriate interventions. Manual Therapy: 1: long sitting right ankle a/p mob of right talo crural joint with distraction of right calcaneous 5 min Skilled Intervention: Manual skills to improve joint mobility, ROM, and decrease pain. Utilized anatomy knowledge of the therapist, and assessment of patient's response to intervention. Therapeutic Activity: 1: stirrup taped right calcaneous lateral to medial with other tape supporting medial arch 2: educated patient on use of taping , anatomy and physiology of right ankle 3: issued arch supports bilateral shoes 4: educated patient on use of arch supports Skilled Intervention: see above Neuromuscular Re-Education: 1: *tandem stance 15 sec x 3 r/l 2: *single leg stance left 15 sec , sls right8 second 3 seconds without ue support Skilled Intervention: Progressing static standing balance Billing HEALTH SYSTEM Session Start Time : 824 HEALTH SYSTEM Session Stop Time : 926 Therapeutic Exercise Treatment Minutes: 25 Manual TherapyTreatment Minutes: 5 Therapeutic Activity Treatment Minutes: 20 Neuromuscular Re-Education Treatment Minutes: 10 Total Treatment Time Minutes (timed/untimed): 60 Kelby Hernandez PTA documented in this encounter [facility] 08-16-2021 History of Present illness Narrative Episode Visit Count: 3 Therapist That Will Oversee The Plan Of Care: Kaya Avila Start of Care Date: 08/07/21 Onset Date: 06/26/21 Plan of Care Certification Date: 11/19/19 Next Certification Due Date: 04/14/20 Patient Identified by Name and Date of : Yes REHABILITATION AND SPORTS THERAPY PHYSICAL THERAPY TREATMENT NOTE ASSESSMENT: Melissa Nichols tolerated the session with no issues. She demonstrated improvements in reciprocal stair mobility . The patient will continue to benefit from ongoing skilled physical therapy to progress toward set goals. PLAN FOR NEXT VISIT: slowly progress strength if right ankle pain remains low , assess taping , progress static standing balance SUBJECTIVE: Patient Reason for Visit: patient reports increased swelling and pain right ankle that lasted until the next morning Pain: Pain Pain Level: 2 Pain Location: Ankle - Right (medial superior) Description: Aching Frequency: Continuous;With movement (going up stairs) Post Treatment Pain Post Treatment Pain Level: No Change OBJECTIVE MEASURES WITH LEVEL OF FUNCTION: TREATMENT: Therapeutic Exercise: 1: bike pedals 100 degrees seat 0 level 2 5 min 2: long sitting manual right 3: long sitting right ankle plantar flexion , dorsiflexion ceballos tb 10 x 2 each 4: standing forward lunge right on 2nd step 12 height , for talo crural mobs 5: *seated a/p mob of talo crural joint right 10 x 2 Skilled Intervention: Patient was educated in proper exercise technique and purpose for exercises. Reviewed and educated patient on additions/changes for home exercise program as above (*). Skilled judgment was provided in selection of appropriate interventions. Provided written instruction for home exercise program to facilitate proper performance and compliance. Therapeutic Activity: 1: stirrup taped right calcaneous lateral to medial with other tape supporting medial arch 2: educated patient on use of taping , anatomy and physiology of right ankle Skilled Intervention: see above Gait Trainin: stair mobility post taping and mob of talo crural joint 2: step up onto blue foam right , step through left 10 x Skilled Intervention: Educated patient on how mobility of talocrural joint affects dorsi flexion with descending stairs Billing HEALTH SYSTEM Session Start Time : 1245 HEALTH SYSTEM Session Stop Time : 1330 Therapeutic Exercise Treatment Minutes: 20 Therapeutic Activity Treatment Minutes: 15 Gait Training Treatment Minutes: 10 Total Treatment Time Minutes (timed and untimed codes) : 45 Kelby Hernandez PTA documented in this encounter [facility] 08-07-2021 History of Present illness Narrative Episode Visit Count: 1 Therapist That Will Oversee The Plan Of Care: Kaya Avila Start of Care Date: 08/07/21 Onset Date: 06/26/21 Plan of Care Certification Date: 11/19/19 Next Certification Due Date: 04/14/20 Patient Identified by Name and Date of : Yes REHABILITATION AND SPORTS THERAPY PHYSICAL THERAPY EVALUATION PLAN OF CARE: Assessment: Melissa Nichols presents with diagnosis of R ankle fracture that interferes with walking in the community;stair negotiation;heavy exertion;physical activities;recreational activities;squatting;running;work ing . She presents with impairments in ADL's, balance, gait, independence in exercise, overall function, range of motion and strength . PROMIS (Patient-Reported Outcomes Measurement Information System) scores were reviewed and physical function domain identified as a rehabilitation concern. Prognosis for therapy is Good due to: current objective clinical presentation;good overall health status;acuteness of condition;positive past response to therapy;good support system/ coping skills . PMH significant for R knee ACL injury & surgery 2 years ago with good recovery. Pt was initially NWB for 4 weeks in a boot (using crutches or knee scooter) then she was transitioned to WBAT in air cast splint 2 weeks ago and was referred to PT. She's been doing AROM exercises (alphabet tracing) as instructed by physician. She will benefit from skilled therapy services to meet the goals established for this plan of care as noted below. Goals for Episode of Care: created on 08/07/21 through 09/21/21 [place] in home exercise program. Patient will decrease pain to 1/10 with functional activities to allow patient to improve ambulation, standing tolerance for ADLs and work related activities. Patient will increase active ROM of R ankle to wnl, symmetrical & painfree to allow pt to to improve postural alignment, to improve performance of ADLs and to improve gait mechanics / gait pattern . Patient will demonstrate increase in R LE strength to 5/5 during manual muscle testing in order to improve function for basic self-care tasks, home management tasks, leisure / recreation skills, prior functional tasks and work tasks. Patient will Improve Timed Up and Go to 6 seconds to demonstrate decreased risk of falling. Normal gait. Reciprocal stair negotiation. Patient will increase balance to 30 seconds for single limb stance on RLE. Patient Goals: full recovery, get back to baseline Planned Interventions, Frequency, and Duration: Current Frequency: 2x/week Duration: 6 weeks Total Number of Visits Planned: 12 Planned Treatment Interventions: Therapeutic exercise (29155);Neuromuscular re-education (08037);Manual therapy (57101);Therapeutic activities (13675);Gait Training (57082);Patient/Family/Caregiver Education PLAN FOR NEXT VISIT: address R ankle ROM & strength, proprioception, balance & gait Patient demonstrates good understanding of plan of care and treatment. The above goals and plan of care were discussed and agreed upon by patient/family. SUBJECTIVE: Melissa Nichols is a 51 year old female seen today for PT eval for rehab s/p R ankle fracture. 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 Pt says her R knee has also been a little sore since she fell. Pt says she was wearing a shoe with a small heel at work and twisted her ankle when she was walking and fell down - had significant pain, swelling & bruising. She initially thought she just sprained her ankle but went to urgent care & Xray showed fibula fx, she was then referred to orthopedics with Dr Hurley. 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 Home Environment Patient Lives With: Spouse Equipment Owned: Crutch(es) (knee scooter) Intake Information: Prescription present Previous Treatment: Exercises per physician;Immobilizer/brace Falls Interview: Fall with injury in the last year Pain: Pain Pain Level: 2 Pain Location: Ankle - Right Description: Aching;Sore Frequency: Intermittent;Walking;With movement Detailed Pain Score: Yes Worst Pain Level: 4 Post Treatment Pain Post Treatment Pain Level: No Change PROMIS Scales Higher is Better 01/13/2020 08/06/2021 Phys Func - Score 45 (within normal limits) 36 (moderate dysfunction) Phys Func - Percentile 31 % 8 % Social Roles - Score 51 (within normal limits) 42 (mild dysfunction) Social Role - Percentile 54 % 21 % GH Physical - Score 47.7 42.3 (Good) GH Physical - Percentile 41 % 22 % GH Mental - Score 53.3 50.8 (Very Good) GH Mental - Percentile 63 % 53 % Self-Eff Symptom - Score 46 (Average) 52 (Average) Self-Eff Symptom - Percentile 34 % 58 % T-scores: mean of general population = 50. 5 points is clinically meaningfully difference Percentiles provide an indication of how the patient's score ranks in relation to the general population. Higher percentile rankings indicate better function/quality of life. 50th percentile is the average of the general population and indicates half of respondents had a worse score. Lower is Better 01/13/2020 08/06/2021 Fatigue - Score 51 (within normal limits) 57 (mild) Fatigue - Percentile 46 % 24 % T-scores: mean of general population = 50. 5 points is clinically meaningfully difference Percentiles provide an indication of how the patient's score ranks in relation to the general population. Higher percentile rankings indicate better function/quality of life. 50th percentile is the average of the general population and indicates half of respondents had a worse score. OBJECTIVE MEASURES WITH LEVEL OF FUNCTION: Ankle Observations Weight Bearing Status: WBAT R Ankle Presents with: Swelling R Swelling: mild R Ankle Palpation Tenderness: Lateral malleolus;Fibula Ankle Brace/Support: Air cast Sensation - Lower Extremity LE Light Touch Sensation: Grossly Intact LE AROM R LE AROM: R ankle slightly limited by mild pain & stiffness L LE AROM: L ankle wnl & painfree R Ankle Dorsiflexion: 5 Degrees R Ankle Plantar Flexion: 55 Degrees R Ankle Inversion: 24 R Ankle Eversion: 12 LE Strength R LE Strength: R hip & knee grossly 4+ to 5/5, ankle weakness as noted below L LE Strength: grossly 5/5 R Ankle Dorsiflexion (L4): 4+/5 R Ankle Plantar Flexion: 2+/5 (limited by pain & weakness) R Ankle Plantarflexion Functional Strength (S1): 0 R Ankle Inversion: 3+/5 R Ankle Eversion: 3+/5 L Ankle Plantar Flexion: 5/5 L Ankle Plantarflexion Functional Strength (S1): 10 Gait Weight Bearing Status: FWB Gait: Independent Gait Device: None Gait Deviations: Right Lower Extremity;General Deviations Gait Deviations Right Lower Extremity: Push off during terminal stance decreased General Deviations/Observations: Antalgic gait;Siria decreased Gait Observation: minimal gait deviation Stairs: reciprocal ascent, non-reciprocal descent Brace/Orthotics: Aircast R ankle Balance Static Standing Balance: Single Leg Stance Single Leg Stance: > 20 seconds L, 5 seconds R with slight pain Functional Performance Test Results Assistive Device: None Timed Up and Go (sec): 9 sec Education: Education Learning/educational needs: Health promotion;Safety;Home exercise program;Plan of Care;Gait Training Education Provided: Yes, see treatment interventions for education provided Education Provided To: Patient Education Mode/Type: Demonstration;Explanation/Discuss ion;Performance Response to Education/Teach Back: States/Identifies;Return Demonstration;Requires Review/Additional Education TREATMENT: PT Treatment Interventions: Therapeutic Exercise Evaluation Therapeutic Exercise: 1: reviewed ankle AROM all planes, alphabet tracing 2: *ankle PF with green TB 10x, ceballos TB 10x (gave pt ceballos TB for home use) 3: *ankle DF, IV & EV with green TB 10xea (pt has green TB at home) 4: standing calf raies 10xB, SL 10xL/unable R (discussed/demonstrated B with wt-shift to R) 5: *long-sit/supine calf stretch R (attempted standing calf stretch but increased ankle pain) Skilled Intervention: Patient was educated in proper exercise technique and purpose for exercises. Reviewed and educated patient on additions/changes for home exercise program as above (*). Skilled judgment was provided in selection of appropriate interventions. Correct performance of therapeutic exercises was facilitated with verbal, visual and tactile cuing. Education in use of ice and elevation and parameters for each. Educated patient on rationale for performing exercises in regards to including balance, increase ease of ADL, increase lymphatic fluid dynamics and ROM and function. Patient education as noted. Billing HEALTH SYSTEM Session Start Time : 1335 HEALTH SYSTEM Session Stop Time : 1425 * Evaluation Low Complexity: 1 Unit Therapeutic Exercise Treatment Minutes: 25 Total Treatment Time Minutes (timed and untimed codes) : 50 Monique Avila PT documented in this encounter [facility] 06-26-2021 Miscellaneous Notes Addended by: LURDES AGUSTIN on: 06/26/2021 04:21 PM Modules accepted: Level of Service documented in this encounter [facility] 06-26-2021 Instructions Lurdes Agustin MD - 06/26/2021 3:58 PM EST Images from the original note were not included. X-ray with fracture of fibula Begin treatment with ibuprofen/tylenol as needed for pain Ice area for 15-20 minutes at a time Keep ankle elevated to reduce swelling Follow up with orthopedics Broken Ankle: Care Instructions Your Care Instructions An ankle may break (fracture) during sports, a fall, or other accidents. Fractures can range from a small, hairline crack, to a bone or bones broken into two or more pieces. Your treatment depends on how bad the break is. Your doctor may have put your ankle in a splint or cast to allow it to heal or to keep it stable until you see another doctor. It may take weeks or months for your ankle to heal. You can help your ankle heal with some care at home. You heal best when you take good care of yourself. Eat a variety of healthy foods, and don't smoke. You may have had a sedative to help you relax. You may be unsteady after having sedation. It can take a few hours for the medicine's effects to wear off. Common side effects of sedation include nausea, vomiting, and feeling sleepy or tired. The doctor has checked you carefully, but problems can develop later. If you notice any problems or new symptoms, get medical treatment right away. Follow-up care is a stephenson part of your treatment and safety. Be sure to make and go to all appointments, and call your doctor if you are having problems. It's also a good idea to know your test results and keep a list of the medicines you take. How can you care for yourself at home? If the doctor gave you a sedative: ? For 24 hours, don't do anything that requires attention to detail, such as going to work, making important decisions, or signing any legal documents. It takes time for the medicine's effects to completely wear off. ? For your safety, do not drive or operate any machinery that could be dangerous. Wait until the medicine wears off and you can think clearly and react easily. Put ice or a cold pack on your ankle for 10 to 20 minutes at a time. Try to do this every 1 to 2 hours for the next 3 days (when you are awake). Put a thin cloth between the ice and your cast or splint. Keep your cast or splint dry. Follow the cast care instructions your doctor gives you. If you have a splint, do not take it off unless your doctor tells you to. Be safe with medicines. Take pain medicines exactly as directed. ? If the doctor gave you a prescription medicine for pain, take it as prescribed. ? If you are not taking a prescription pain medicine, ask your doctor if you can take an ppfm-wps-wlgueia medicine. Prop up your leg on pillows in the first few days after the injury. Keep the ankle higher than the level of your heart. This will help reduce swelling. Do not put weight on your ankle unless your doctor tells you to. Use crutches to walk. Follow instructions for exercises to keep your leg strong. Wiggle your toes often to reduce swelling and stiffness. When should you call for help? Call 911 anytime you think you may need emergency care. For example, call if: You have chest pain, are short of breath, or you cough up blood. You are very sleepy and you have trouble waking up. Call your doctor now or seek immediate medical care if: You have new or worse nausea or vomiting. You have new or worse pain. Your foot is cool or pale or changes color. You have tingling, weakness, or numbness in your toes. Your cast or splint feels too tight. You have signs of a blood clot in your leg (called a deep vein thrombosis), such as: ? Pain in your calf, back of the knee, thigh, or groin. ? Redness or swelling in your leg. Watch closely for changes in your health, and be sure to contact your doctor if: You have a problem with your splint or cast. You do not get better as expected. Where can you learn more? Log into your personal health record on https://[email or web address]unax and enter P763 in the Education box to learn more about Broken Ankle: Care Instructions. Current as of: November 09, 2020 Content Version: 13.1 [employer]. Care instructions adapted under license by your healthcare professional. If you have questions about a medical condition or this instruction, always ask your healthcare professional. [employer] disclaims any warranty or liability for your use of this information. documented in this encounter [facility] 06-26-2021 History of Present illness Narrative Associated Order(s): Splint Application Post-Procedure Diagnose(s): Fracture of distal end of tibia with fibula, right, closed, initial encounter Images from the original note were not included. Patient Name: [facility] Location: [place] [address] [address] Date Of : Date Of Visit: 1970 06/26/2021 MRN# Provider: [id number] Lurdes Agustin MD Chief Complaint Patient presents with Ankle Injury Pt fell today while walking to her office, twisted Right ankle Assessment & Plan 1. Ankle injury, right, initial encounter XR Ankle Right 3+ Views (Standard) 2. Fracture of distal end of tibia with fibula, right, closed, initial encounter Ambulatory referral to Orthopedic Surgery No follow-ups on file. Medical Decision Making 1. X-ray reading performed by me revealing fracture of fibula. Radiologist over read confirming fracture. 2. Patient fitted with formed ortho-glass splint. She already has crutches at home 3. I advised otc medications to help with pain, elevation and ice. She was given a referral to [facility] orthopedics. Subjective 50 y.o. female presents with Ankle Injury (Pt fell today while walking to her office, twisted Right ankle) 50 year old woman presenting to clinic for right ankle pain. She twisted her ankle today while at her job. She has not had any previous injury to the ankle. Review Of Systems Review of Systems Constitutional: Negative. HENT: Negative. Eyes: Negative. Respiratory: Negative. Cardiovascular: Negative. Gastrointestinal: Negative. Musculoskeletal: R ankle pain/swelling Skin: Negative. Neurological: Negative. Medical History History reviewed. No pertinent past medical history. History reviewed. No pertinent surgical history. There is no problem list on file for this patient. Social History Social History Tobacco Use Smoking status: Never Smoker Smokeless tobacco: Former User Substance Use Topics Alcohol use: Not Currently Drug use: Never Family History History reviewed. No pertinent family history. Objective Physical Exam BP 114/77 (BP Location: Left arm, Patient Position: Sitting, BP Cuff Size: Adult) Pulse 78 Temp 98.2 F (36.8 C) (Infrared) Resp 16 Ht 5' 2 Wt 97.5 kg (215 lb) SpO2 97% BMI 39.32 kg/m Vision/Hearing Exam:No exam data present Physical Exam Vitals reviewed. HENT: Head: Normocephalic and atraumatic. Musculoskeletal: Comments: R ankle edematous, tender to palpation along lateral malleolus, FROM of ankle with minor pain Neurological: Mental Status: She is alert. Procedure Notes Splint Application Date/Time: 06/26/2021 4:09 PM Performed by: Lurdes Agustin MD Authorized by: Lurdes Agustin MD Location details: right ankle Splint type: short leg Supplies used: Ortho-Glass Post-procedure: The splinted body part was neurovascularly unchanged following the procedure. Patient tolerance: patient tolerated the procedure well with no immediate complications Results No results found for this or any previous visit (from the past 168 hour(s)). No orders to display Orders Placed This Visit Orders Placed This Encounter Procedures XR Ankle Right 3+ Views (Standard) Ambulatory referral to Orthopedic Surgery Apply posterior ankle splint formed Medication List At End Of Visit Current Outpatient Medications Medication Sig Dispense Refill calcium carbonate (OS-LAUREN) 600 mg calcium (1,500 mg) tablet Take 1,200 Units by mouth daily . ergocalciferol (ERGOCALCIFEROL) 1,250 mcg (50,000 unit) capsule Take 50,000 Units by mouth once a week . ferrous sulfate 325 (65 FE) MG EC tablet Take 325 mg by mouth 2 (two) times a day . hydrOXYchloroQUINE (PLAQUENIL) 200 mg tablet TAKE 1 & 1/2 TABLETS WITH FOOD OR MILK ONCE A DAY ORALLY 30 DAYS levothyroxine (SYNTHROID, LEVOTHROID) 100 MCG tablet Take 100 mcg by mouth daily . multivitamin capsule Take 1 capsule by mouth daily . No current facility-administered medications for this visit. Patient Instructions X-ray with fracture of fibula Begin treatment with ibuprofen/tylenol as needed for pain Ice area for 15-20 minutes at a time Keep ankle elevated to reduce swelling Follow up with orthopedics Broken Ankle: Care Instructions Your Care Instructions An ankle may break (fracture) during sports, a fall, or other accidents. Fractures can range from a small, hairline crack, to a bone or bones broken into two or more pieces. Your treatment depends on how bad the break is. Your doctor may have put your ankle in a splint or cast to allow it to heal or to keep it stable until you see another doctor. It may take weeks or months for your ankle to heal. You can help your ankle heal with some care at home. You heal best when you take good care of yourself. Eat a variety of healthy foods, and don't smoke. You may have had a sedative to help you relax. You may be unsteady after having sedation. It can take a few hours for the medicine's effects to wear off. Common side effects of sedation include nausea, vomiting, and feeling sleepy or tired. The doctor has checked you carefully, but problems can develop later. If you notice any problems or new symptoms, get medical treatment right away. Follow-up care is a stephenson part of your treatment and safety. Be sure to make and go to all appointments, and call your doctor if you are having problems. It's also a good idea to know your test results and keep a list of the medicines you take. How can you care for yourself at home? If the doctor gave you a sedative: ? For 24 hours, don't do anything that requires attention to detail, such as going to work, making important decisions, or signing any legal documents. It takes time for the medicine's effects to completely wear off. ? For your safety, do not drive or operate any machinery that could be dangerous. Wait until the medicine wears off and you can think clearly and react easily. Put ice or a cold pack on your ankle for 10 to 20 minutes at a time. Try to do this every 1 to 2 hours for the next 3 days (when you are awake). Put a thin cloth between the ice and your cast or splint. Keep your cast or splint dry. Follow the cast care instructions your doctor gives you. If you have a splint, do not take it off unless your doctor tells you to. Be safe with medicines. Take pain medicines exactly as directed. ? If the doctor gave you a prescription medicine for pain, take it as prescribed. ? If you are not taking a prescription pain medicine, ask your doctor if you can take an [id number]-[id number] medicine. Prop up your leg on pillows in the first few days after the injury. Keep the ankle higher than the level of your heart. This will help reduce swelling. Do not put weight on your ankle unless your doctor tells you to. Use crutches to walk. Follow instructions for exercises to keep your leg strong. Wiggle your toes often to reduce swelling and stiffness. When should you call for help? Call 911 anytime you think you may need emergency care. For example, call if: You have chest pain, are short of breath, or you cough up blood. You are very sleepy and you have trouble waking up. Call your doctor now or seek immediate medical care if: You have new or worse nausea or vomiting. You have new or worse pain. Your foot is cool or pale or changes color. You have tingling, weakness, or numbness in your toes. Your cast or splint feels too tight. You have signs of a blood clot in your leg (called a deep vein thrombosis), such as: ? Pain in your calf, back of the knee, thigh, or groin. ? Redness or swelling in your leg. Watch closely for changes in your health, and be sure to contact your doctor if: You have a problem with your splint or cast. You do not get better as expected. Where can you learn more? Log into your personal health record on https://[employer]Munax and enter P763 in the Education box to learn more about Broken Ankle: Care Instructions. Current as of: November 09, 2020 Content Version: 13.1 [employer]. Care instructions adapted under license by your healthcare professional. If you have questions about a medical condition or this instruction, always ask your healthcare professional. [employer] disclaims any warranty or liability for your use of this information. documented in this encounter [facility] 11-19-2019 History of Past i llness Narrative Problem Noted Date Diagnosed Date Resolved Date Impaired range of motion of right knee 11/19/2019 12/09/2022 Abnormality of gait 11/19/2019 12/10/19 23 UTI (lower urinary tract infection) 08/18/2013 08/18/2013 documented as of this encounter (statuses as of 12/09/2022) [address]10-2020 History of Past illness Narrative* Problem Noted Date Diagnosed Date Resolved Date Impaired range of motion of right knee 11/19/2019 12/09/2022 Abnormality of gait 11/19/2019 12/10/19 23 UTI (lower urinary tract infection) 08/18/2013 08/18/2013 documented as of this encounter (statuses as of 12/23/2022) [address]10-2020 History of Past illness Narrative* Problem Noted Date Diagnosed Date Resolved Date Impaired range of motion of right knee 11/19/2019 12/09/2022 Abnormality of gait 11/19/2019 12/10/19 23 UTI (lower urinary tract infection) 08/18/2013 08/18/2013 documented as of this encounter (statuses as of 12/28/2022) [address]-2020 History of Past illness Narrative* Problem Noted Date Diagnosed Date Resolved Date Impaired range of motion of right knee 11/19/2019 12/09/2022 Abnormality of gait 11/19/2019 12/10/19 23 UTI (lower urinary tract infection) 08/18/2013 08/18/2013 documented as of this encounter (statuses as of 02/20/2023) [place] [id number] History of Past illness Narrative* Problem Noted Date Diagnosed Date Resolved Date Impaired range of motion of right knee 11/19/2019 12/09/2022 Abnormality of gait 11/19/2019 12/10/19 23 UTI (lower urinary tract infection) 08/18/2013 08/18/2013 documented as of this encounter (statuses as of 03/25/2023) [address]2020 History of Past illness Narrative* Problem Noted Date Diagnosed Date Resolved Date Impaired range of motion of right knee 11/19/2019 12/09/2022 Abnormality of gait 11/19/2019 12/10/19 23 UTI (lower urinary tract infection) 08/18/2013 08/18/2013 documented as of this encounter (statuses as of 03/26/2023) [address]2020 History of Past illness Narrative* Problem Noted Date Diagnosed Date Resolved Date Impaired range of motion of right knee 11/19/2019 12/09/2022 Abnormality of gait 11/19/2019 12/10/19 23 UTI (lower urinary tract infection) 08/18/2013 08/18/2013 documented as of this encounter (statuses as of 03/27/2023) [address]2020 History of Past illness Narrative* Problem Noted Date Diagnosed Date Resolved Date Impaired range of motion of right knee 11/19/2019 12/09/2022 Abnormality of gait 11/19/2019 12/10/19 23 UTI (lower urinary tract infection) 08/18/2013 08/18/2013 documented as of this encounter (statuses as of 04/19/2023) [address] History of Past illness Narrative* Problem Noted Date Diagnosed Date Resolved Date Impaired range of motion of right knee 11/19/2019 12/09/2022 Abnormality of gait 11/19/2019 12/10/19 23 UTI (lower urinary tract infection) 08/18/2013 08/18/2013 documented as of this encounter (statuses as of 04/23/2023) [address] History of Past illness Narrative* Problem Noted Date Diagnosed Date Resolved Date Impaired range of motion of right knee 11/19/2019 12/09/2022 Abnormality of gait 11/19/2019 12/10/19 23 UTI (lower urinary tract infection) 08/18/2013 08/18/2013 documented as of this encounter (statuses as of 07/18/2023) [place] [id number] History of Past illness Narrative* Problem Noted Date Diagnosed Date Resolved Date Impaired range of motion of right knee 11/19/2019 12/09/2022 Abnormality of gait 11/19/2019 12/10/19 23 UTI (lower urinary tract infection) 08/18/2013 08/18/2013 documented as of this encounter (statuses as of 08/13/2023) [facility]07-10-2020 History of Past illness Narrative* Problem Noted Date Diagnosed Date Resolved Date Impaired range of motion of right knee 11/19/2019 12/09/2022 Abnormality of gait 11/19/2019 12/10/19 23 UTI (lower urinary tract infection) 08/18/2013 08/18/2013 documented as of this encounter (statuses as of 08/14/2023) [facility]04-09-2014 History of Past illness Narrative* Problem Noted Date Resolved Date UTI (lower urinary tract infection) 08/18/2013 08/18/2013 documented as of this encounter (statuses as of 08/07/2021) [facility]2014 History of Past illness Narrative* Problem Noted Date Resolved Date UTI (lower urinary tract infection) 08/18/2013 08/18/2013 documented as of this encounter (statuses as of 08/16/2021) [facility]-09-2014 History of Past illness Narrative* Problem Noted Date Resolved Date UTI (lower urinary tract infection) 08/18/2013 08/18/2013 documented as of this encounter (statuses as of 08/21/2021) [facility]2014 History of Past illness Narrative* Problem Noted Date Resolved Date UTI (lower urinary tract infection) 08/18/2013 08/18/2013 documented as of this encounter (statuses as of 08/23/2021) [facility]-09[facility]2014 History of Past illness Narrative* Problem Noted Date Resolved Date UTI (lower urinary tract infection) 08/18/2013 08/18/2013 documented as of this encounter (statuses as of 08/30/2021) [facility]2014 History of Past illness Narrative* Problem Noted Date Resolved Date UTI (lower urinary tract infection) 08/18/2013 08/18/2013 documented as of this encounter (statuses as of 09/04/2021) [facility]2014 History of Past illness Narrative* Problem Noted Date Resolved Date UTI (lower urinary tract infection) 08/18/2013 08/18/2013 documented as of this encounter (statuses as of 09/06/2021) [address]09-2014 History of Past illness Narrative* Problem Noted Date Resolved Date UTI (lower urinary tract infection) 08/18/2013 08/18/2013 documented as of this encounter (statuses as of 09/19/2021) [address]09-2014 History of Past illness Narrative* Problem Noted Date Resolved Date UTI (lower urinary tract infection) 08/18/2013 08/18/2013 documented as of this encounter (statuses as of 09/25/2021) [place] [address]2014 History of Past illness Narrative* Problem Noted Date Resolved Date UTI (lower urinary tract infection) 08/18/2013 08/18/2013 documented as of this encounter (statuses as of 12/06/2021) [address]09-2014 History of Past illness Narrative* Problem Noted Date Resolved Date UTI (lower urinary tract infection) 08/18/2013 08/18/2013 documented as of this encounter (statuses as of 12/07/2021) [address]09-2014 History of Past illness Narrative* Problem Noted Date Resolved Date UTI (lower urinary tract infection) 08/18/2013 08/18/2013 documented as of this encounter (statuses as of 02/15/2022) [facility]2014 History of Past illness Narrative* Problem Noted Date Resolved Date UTI (lower urinary tract infection) 08/18/2013 08/18/2013 documented as of this encounter (statuses as of 02/22/2022) [address]09-2014 History of Past illness Narrative* Problem Noted Date Resolved Date UTI (lower urinary tract infection) 08/18/2013 08/18/2013 documented as of this encounter (statuses as of 02/25/2022) [address]09-2014 History of Past illness Narrative* Problem Noted Date Resolved Date UTI (lower urinary tract infection) 08/18/2013 08/18/2013 documented as of this encounter (statuses as of 03/08/2022) [place] [address]2014 History of Past illness Narrative* Problem Noted Date Resolved Date UTI (lower urinary tract infection) 08/18/2013 08/18/2013 documented as of this encounter (statuses as of 04/09/2022) [place] [address] History of Past illness Narrative* Problem Noted Date Resolved Date UTI (lower urinary tract infection) 08/18/2013 08/18/2013 documented as of this encounter (statuses as of 06/27/2022) [address]09-2014 History of Past illness Narrative* Problem Noted Date Resolved Date UTI (lower urinary tract infection) 08/18/2013 08/18/2013 documented as of this encounter (statuses as of 07/06/2022) [address]09-2014 History of Past illness Narrative* Problem Noted Date Resolved Date UTI (lower urinary tract infection) 08/18/2013 08/18/2013 documented as of this encounter (statuses as of 07/12/2022) [address]09-2014 History of Past illness Narrative* Problem Noted Date Resolved Date UTI (lower urinary tract infection) 08/18/2013 08/18/2013 documented as of this encounter (statuses as of 08/01/2022) [place] [address] History of Past illness Narrative* Problem Noted Date Resolved Date UTI (lower urinary tract infection) 08/18/2013 08/18/2013 documented as of this encounter (statuses as of 08/10/2022) [place] [address] History of Past illness Narrative* Problem Noted Date Resolved Date UTI (lower urinary tract infection) 08/18/2013 08/18/2013 documented as of this encounter (statuses as of 10/08/2022) [facility] note* Diagnosis Ankle injury, right, initial encounter- Primary Fracture of distal end of tibia with fibula, right, closed, initial encounter Ankle injury, right, initial encounter documented in this encounter [facility] note* Diagnosis Closed fracture of right ankle with routine healing, subsequent encounter- Primary Difficulty walking due to ankle and foot joint Difficulty in walking Acute right ankle pain [facility] Diagnosis Closed fracture of right ankle with routine healing, subsequent encounter- Primary Difficulty walking due to ankle and foot joint Difficulty in walking Acute right ankle pain [facility]* Diagnosis Closed fracture of right ankle with routine healing, subsequent encounter- Primary documented in this encounter [facility] note* Diagnosis Closed fracture of right ankle with routine healing, subsequent encounter- [facility] Diagnosis Closed fracture of right ankle with routine healing, subsequent encounter- Primary [facility]* Diagnosis Closed fracture of right ankle with routine healing, subsequent encounter- Primary Difficulty walking due to ankle and foot joint Difficulty in walking Acute right ankle pain [facility]* Diagnosis Closed fracture of right ankle with routine healing, subsequent encounter- Primary documented in this encounter [facility] note* Diagnosis Closed fracture of right ankle with routine healing, subsequent encounter- Primary [facility]* Diagnosis Closed fracture of right ankle with routine healing, subsequent encounter- Primary Acute right ankle pain [facility]* Diagnosis Encounter for gynecological examination (general) (routine) without abnormal findings- Primary Encounter for screening mammogram for malignant neoplasm of breast Other screening mammogram documented in this encounter [facility] note* Diagnosis Class 3 severe obesity with serious comorbidity and body mass index (BMI) of 40.0 to 44.9 in adult, unspecified obesity type (HCC)- Primary Osteoarthritis of both knees, unspecified osteoarthritis type Polyarthralgia Pain in joint, multiple sites History of Abisai-en-Y gastric bypass Bariatric surgery status documented in this encounter [facility] noteNo assessment information availableWCenterville Work Phone: Evaluation note* Diagnosis S/P gastric bypass- Primary Bariatric surgery status Class 3 severe obesity due to excess calories without serious comorbidity with body mass index (BMI) of 40.0 to 44.9 in adult (HCC) documented in this encounter [facility] note* Diagnosis Class 3 obesity (HCC)- Primary Dietary counseling and surveillance Dietary surveillance and counseling S/P gastric bypass Bariatric surgery status Impaired intestinal absorption Unspecified intestinal malabsorption documented in this encounter [facility] note* Diagnosis Complications of bariatric procedures- Primary Other complications of other bariatric procedure History of Armijo's esophagus History of gastric bypass Bariatric surgery status Obesity, Class III, BMI 40-49.9 (morbid obesity) (HCC) Morbid obesity documented in this encounter [facility] note* Diagnosis Complications of bariatric procedures Other complications of other bariatric procedure History of Armijo's esophagus documented in this encounter [facility] note* Diagnosis Complications of bariatric procedures- Primary Other complications of other bariatric procedure Morbid obesity (HCC) Morbid obesity documented in this encounter [facility] note* Diagnosis Complications of bariatric procedures- Primary Other complications of other bariatric procedure History of gastric bypass Bariatric surgery status Weight gain following gastric bypass surgery Obesity, Class III, BMI 40-49.9 (morbid obesity) (HCC) Morbid obesity Encounter for weight management documented in this encounter [facility] note* Diagnosis Acquired hypothyroidism- Primary Unspecified hypothyroidism documented in this encounter [facility] note* Diagnosis Encounter for gynecological examination (general) (routine) without abnormal findings- Primary Encounter for screening mammogram for malignant neoplasm of breast Other screening mammogram Encounter for screening for malignant neoplasm of colon Special screening for malignant neoplasms, colon documented in this encounter [facility] note* Diagnosis Family history of rectal cancer- Primary Family history of malignant neoplasm of gastrointestinal tract Encounter for screening for malignant neoplasm of colon Special screening for malignant neoplasms, colon documented in this encounter [facility] note* Diagnosis Complications of gastric bypass surgery- Primary Other digestive system complications History of gastric bypass Bariatric surgery status Weight gain following gastric bypass surgery Encounter for weight management Class 3 severe obesity due to excess calories without serious comorbidity with body mass index (BMI) of 40.0 to 44.9 in adult (HCC) documented in this encounter [facility] note* Diagnosis Class 3 severe obesity due to excess calories with serious comorbidity and body mass index (BMI) of 40.0 to 44.9 in adult (HCC)- Primary Complications of gastric bypass surgery Other digestive system complications History of gastric bypass Bariatric surgery status Weight gain following gastric bypass surgery Encounter for weight management documented in this encounter [facility] note* Diagnosis Acquired hypothyroidism Unspecified hypothyroidism documented in this encounter [facility] note* Diagnosis Class 3 severe obesity due to excess calories with serious comorbidity and body mass index (BMI) of 40.0 to 44.9 in adult (HCC)- Primary [facility]* Diagnosis Hepatic steatosis- Primary Other chronic nonalcoholic liver disease documented in this encounter [facility] note* Diagnosis S/P gastric bypass- Primary Bariatric surgery status Impaired intestinal absorption Unspecified intestinal malabsorption Class 3 severe obesity due to excess calories in adult, unspecified BMI, unspecified whether serious comorbidity present (HCC) Body mass index 40.0-44.9, adult (HCC) Body Mass Index 40.0-44.9, adult Dietary counseling and surveillance Dietary surveillance and counseling documented in this encounter [facility] note* Diagnosis Class 3 severe obesity due to excess calories with serious comorbidity and body mass index (BMI) of 40.0 to 44.9 in adult (HCC)- Primary Complications of gastric bypass surgery Other digestive system complications History of gastric bypass Bariatric surgery status Weight gain following gastric bypass surgery Encounter for weight management documented in this encounter [facility] note* Diagnosis Vitamin D deficiency- Primary Well adult exam Routine general medical examination at a health care facility documented in this encounter [facility] note* Diagnosis Physical exam- Primary Unspecified general medical examination Vitamin D deficiency Morbidly obese (HCC) Morbid obesity Acquired hypothyroidism Unspecified hypothyroidism Acquired iron deficiency anemia due to decreased absorption documented in this encounter [facility] note* Diagnosis Physical exam- Primary Unspecified general medical examination Vitamin D deficiency Morbidly obese (HCC) Morbid obesity Acquired hypothyroidism Unspecified hypothyroidism Acquired iron deficiency anemia due to decreased absorption Acute bilateral low back pain without sciatica documented in this encounter [facility] note* Diagnosis Complications of gastric bypass surgery- Primary Other digestive system complications History of gastric bypass Bariatric surgery status Vitamin D deficiency Unspecified vitamin D deficiency Body mass index 40.0-44.9, adult (HCC) Body Mass Index 40.0-44.9, adult Hepatic steatosis Other chronic nonalcoholic liver disease Pre-op testing Preoperative examination, unspecified documented in this encounter [facility] note* Diagnosis Acquired hypothyroidism Unspecified hypothyroidism documented in this encounter [facility] note* Diagnosis History of gastric bypass- Primary Bariatric surgery status Vitamin D deficiency Unspecified vitamin D deficiency Complications of gastric bypass surgery Other digestive system complications Body mass index 40.0-44.9, adult (HCC) Body Mass Index 40.0-44.9, adult Hepatic steatosis Other chronic nonalcoholic liver disease Pre-op testing Preoperative examination, unspecified documented in this encounter [facility] note* Diagnosis S/P bariatric surgery- Primary Bariatric surgery status Impaired intestinal absorption Unspecified intestinal malabsorption Class 2 obesity due to excess calories with body mass index (BMI) of 39.0 to 39.9 in adult, unspecified whether serious comorbidity present BMI 39.0-39.9,adult Body Mass Index 39.0-39.9, adult Dietary counseling and surveillance Dietary surveillance and counseling documented in this encounter [facility] note* Diagnosis Complications of gastric bypass surgery- Primary Other digestive system complications History of gastric bypass Bariatric surgery status Vitamin D deficiency Unspecified vitamin D deficiency Hepatic steatosis Other chronic nonalcoholic liver disease Weight gain following gastric bypass surgery Encounter for weight management Class 3 severe obesity due to excess calories without serious comorbidity with body mass index (BMI) of 40.0 to 44.9 in adult (HCC) [facility]* Diagnosis Class 3 severe obesity due to excess calories with serious comorbidity and body mass index (BMI) of 40.0 to 44.9 in adult (HCC) Complications of gastric bypass surgery Other digestive system complications documented in this encounter [facility] note* Diagnosis S/P bariatric surgery- Primary Bariatric surgery status Impaired intestinal absorption Unspecified intestinal malabsorption Class 2 obesity due to excess calories with body mass index (BMI) of 38.0 to 38.9 in adult, unspecified whether serious comorbidity present BMI 38.0-38.9,adult Body Mass Index 38.0-38.9, adult Dietary counseling and surveillance Dietary surveillance and counseling documented in this encounter [facility] note* Diagnosis Psychological factors affecting medical condition- Primary Psychic factors associated with diseases classified elsewhere Class 2 obesity due to excess calories with body mass index (BMI) of 38.0 to 38.9 in adult, unspecified whether serious comorbidity present documented in this encounter [facility] note* Diagnosis Class 2 severe obesity due to excess calories with serious comorbidity and body mass index (BMI) of 36.0 to 36.9 in adult (HCC)- Primary Complications of gastric bypass surgery Other digestive system complications History of gastric bypass Bariatric surgery status Weight gain following gastric bypass surgery Hepatic steatosis Other chronic nonalcoholic liver disease Encounter for weight management [facility] Diagnosis S/P bariatric surgery- Primary Bariatric surgery status Impaired intestinal absorption Unspecified intestinal malabsorption Class 2 obesity due to excess calories with body mass index (BMI) of 35.0 to 35.9 in adult, unspecified whether serious comorbidity present Dietary counseling and surveillance Dietary surveillance and counseling documented in this encounter [facility] note* Diagnosis Encounter for gynecological examination (general) (routine) without abnormal findings- Primary Encounter for screening mammogram for breast cancer documented in this encounter [facility] note* Diagnosis S/P bariatric surgery- Primary Bariatric surgery status Impaired intestinal absorption Unspecified intestinal malabsorption Class 1 obesity due to excess calories with body mass index (BMI) of 34.0 to 34.9 in adult, unspecified whether serious comorbidity present Dietary counseling and surveillance Dietary surveillance and counseling [facility]* Diagnosis Psychological factors affecting medical condition- Primary Psychic factors associated with diseases classified elsewhere Class 1 obesity due to excess calories with body mass index (BMI) of 34.0 to 34.9 in adult, unspecified whether serious comorbidity present [facility]* Diagnosis Bariatric surgery status- Primary Steatosis (HCC) Other disorders of lipoid metabolism Complications of bariatric procedures Other complications of other bariatric procedure Class 2 obesity due to excess calories with body mass index (BMI) of 38.0 to 38.9 in adult, unspecified whether serious comorbidity present [facility] Diagnosis Acquired hypothyroidism Unspecified hypothyroidism [facility] Diagnosis Psychological factors affecting medical condition- Primary Psychic factors associated with diseases classified elsewhere Class 1 obesity with body mass index (BMI) of 33.0 to 33.9 in adult, unspecified obesity type, unspecified whether serious comorbidity present [facility] Diagnosis S/P bariatric surgery- Primary Bariatric surgery status Impaired intestinal absorption Unspecified intestinal malabsorption Class 1 obesity due to excess calories with body mass index (BMI) of 33.0 to 33.9 in adult, unspecified whether serious comorbidity present Dietary counseling and surveillance Dietary surveillance and counseling documented in this encounter [facility] note* Diagnosis Well adult exam- Primary Routine general medical examination at a health care facility Acquired iron deficiency anemia due to decreased absorption Autoimmune disorder (CMS/HCC) (HCC) Autoimmune disease, not elsewhere classified Vitamin D deficiency Acquired hypothyroidism Unspecified hypothyroidism [facility] Diagnosis Impacted cerumen of right ear- Primary Impacted cerumen School physical exam Health examination of defined subpopulation [facility] Diagnosis Acquired hypothyroidism Unspecified hypothyroidism [facility] Complications of gastric bypass surgery- Primary Other digestive system complications History of gastric bypass Bariatric surgery status Weight gain following gastric bypass surgery Encounter for weight management Hepatic steatosis Other chronic nonalcoholic liver disease Class 1 obesity due to excess calories with serious comorbidity and body mass index (BMI) of 33.0 to 33.9 in adult [facility] Diagnosis Vitamin D deficiency documented in this encounter [facility] note* Diagnosis Elevated ferritin- Primary Other abnormal blood chemistry Well adult exam Routine general medical examination at a health care facility Acquired hypothyroidism Unspecified hypothyroidism Undifferentiated connective tissue disease (HCC) Unspecified diffuse connective tissue disease documented in this encounter [facility] note* Diagnosis Complications of gastric bypass surgery- Primary Other digestive system complications History of gastric bypass Bariatric surgery status Hepatic steatosis Other chronic nonalcoholic liver disease Class 1 obesity due to excess calories with body mass index (BMI) of 33.0 to 33.9 in adult, unspecified whether serious comorbidity present Impaired intestinal absorption Unspecified intestinal malabsorption documented in this encounter [facility] note* Diagnosis Steatosis (HCC)- Primary Other disorders of lipoid metabolism documented in this encounter [facility] note* Diagnosis Complications of gastric bypass surgery- Primary Other digestive system complications History of gastric bypass Bariatric surgery status Weight gain following gastric bypass surgery Encounter for weight management Class 2 severe obesity due to excess calories with serious comorbidity and body mass index (BMI) of 35.0 to 35.9 in adult (HCC) documented in this encounter [facility] note* Diagnosis Psychological factors affecting medical condition- Primary Psychic factors associated with diseases classified elsewhere Class 1 obesity due to excess calories with body mass index (BMI) of 34.0 to 34.9 in adult, unspecified whether serious comorbidity present documented in this encounter [facility] note* Diagnosis S/P bariatric surgery- Primary Bariatric surgery status Impaired intestinal absorption Unspecified intestinal malabsorption Class 1 obesity due to excess calories with body mass index (BMI) of 34.0 to 34.9 in adult, unspecified whether serious comorbidity present Dietary counseling and surveillance Dietary surveillance and counseling documented in this encounter [facility] note* Diagnosis Complications of gastric bypass surgery Other digestive system complications History of gastric bypass Bariatric surgery status Hepatic steatosis Other chronic nonalcoholic liver disease Class 1 obesity due to excess calories with body mass index (BMI) of 33.0 to 33.9 in adult, unspecified whether serious comorbidity present Impaired intestinal absorption Unspecified intestinal malabsorption documented in this encounter [facility] note* Diagnosis Acquired hypothyroidism Unspecified hypothyroidism documented in this encounter [facility] note* Diagnosis S/P bariatric surgery- Primary Bariatric surgery status Impaired intestinal absorption Unspecified intestinal malabsorption Class 1 obesity due to excess calories with body mass index (BMI) of 33.0 to 33.9 in adult, unspecified whether serious comorbidity present Dietary counseling and surveillance Dietary surveillance and counseling [facility] Diagnosis Complications of gastric bypass surgery- Primary Other digestive system complications History of gastric bypass Bariatric surgery status Weight gain following gastric bypass surgery Encounter for weight management Class 1 obesity due to excess calories with serious comorbidity and body mass index (BMI) of 31.0 to 31.9 in adult [facility] Diagnosis Psychological factors affecting medical condition- Primary Psychic factors associated with diseases classified elsewhere Class 1 obesity with body mass index (BMI) of 31.0 to 31.9 in adult, unspecified obesity type, unspecified whether serious comorbidity present [facility] Diagnosis Class 1 obesity due to excess calories with body mass index (BMI) of 30.0 to 30.9 in adult, unspecified whether serious comorbidity present- Primary Dietary counseling and surveillance Dietary surveillance and counseling [facility] Diagnosis Complications of gastric bypass surgery- Primary Other digestive system complications History of gastric bypass Bariatric surgery status Weight gain following gastric bypass surgery Encounter for weight management Class 1 obesity due to excess calories with serious comorbidity and body mass index (BMI) of 30.0 to 30.9 in adult [facility] Diagnosis Breast screening- Primary Breast screening, unspecified [facility] Attachments The following attachments cannot be sent through Care Everywhere. * Pneumococcal Conjugate Vaccine (20-Valent), ADULT ([place]) [facility] Outpatient Procedure (Routine) - Pending Review Specialty Diagnoses / Procedures Referred By Dwight quinn Referred To Contact [facility] Diagnoses Complications of bariatric procedures History of Armijo's esophagus Procedures EGD BARIATRIC ESOPHAGOGASTRODUODENOSC OPY TRANSORAL DIAGNOSTIC Paci, Maranda Us APRN.WALKER [address] [place] [address] [facility] [address] [place] [address] Referral ID Status Reason Start Date Expiration Date Visits Requested Visits Authorized [id number] Pending Review Auto-Generat ed Referral 03/06/2023 1 1 [facility] for referral (narrative)* Outpatient Procedure (Routine) - Closed Specialty Diagnoses / Procedures Referred By Dwight t Referred To Contact [facility] Diagnoses Complications of bariatric procedures History of Armijo's esophagus Procedures EGD BARIATRIC ESOPHAGOGASTRODUODENOSC OPY TRANSORAL DIAGNOSTIC Maranda Castro APRN.CNP [id number] [place] [address] Referral ID Status Reason Start Date Expiration Date V isits Requested Visits Authorized [id number] Closed Auto-Generate d Referral 03/06/2022 03/06/2023 1 1 [facility] for referral (narrative)* Outpatient Procedure (Routine) - Pending Review Specialty Diagnoses / Procedures Referred By Dwight t Referred To Contact [facility] Diagnoses Complications of bariatric procedures Morbid obesity (HCC) Procedures ENDOSCOPIC GASTRIC BYPASS REPAIR (EGBR) STOMACH SURGERY PROCEDURE UNLISTED Micheal Thomas MD [id number] [place] [id number] [place] [id number] Referral ID Status Reason Start Date Expiration Date Visits Requested Visits Authorized [id number] Pending Review Auto-Generat ed Referral 07/12/2022 07/13/2023 1 1 [facility] for referral (narrative)* Outpatient Procedure (Routine) - Pending Review Specialty Diagnoses / Procedures Referred By Dwight t Referred To Contact [facility] Diagnoses Class 3 severe obesity due to excess calories with serious comorbidity and body mass index (BMI) of 40.0 to 44.9 in adult (HCC) Procedures DDI VIBRATION CONTROLLED TRANSIENT ELASTOGRAPHY (VCTE) LIVER ELASTOGRAPHY W/O IMAG W/I&R Maranda Castro APRN.REPORT CLERK [address] [place] [address] [address] Referral ID Status Reason Start Date Expiration Date Visits Requested Visits Authorized [id number] Pending Review Auto-Generat ed Referral 02/21/2024 1 1 [facility] for referral (narrative)* Outpatient Procedure (Routine) - Pending Review Specialty Diagnoses / Procedures Referred By Dwight quinn Referred To Contact [facility] Diagnoses Class 3 severe obesity due to excess calories with serious comorbidity and body mass index (BMI) of 40.0 to 44.9 in adult (HCC) Complications of gastric bypass surgery Procedures EGD BARIATRIC ESOPHAGOGASTRODUODENOSC OPY TRANSORAL DIAGNOSTIC Maranda Castro APRN.REPORT CLERK [phone] [address] Referral ID Status Reason Start Date Expiration Date Visits Requested Visits Authorized [id number] Pending Review Auto-Generat ed Referral 07/18/2023 07/17/2024 1 1 [facility] for referral (narrative)* Outpatient Procedure (Routine) - Authorized Specialty Diagnoses / Procedures Referred By Dwight quinn Referred To Contact [facility] Diagnoses History of gastric bypass Vitamin D deficiency Complications of gastric bypass surgery Body mass index 40.0-44.9, adult (HCC) Hepatic steatosis Pre-op testing Procedures DDI VIBRATION CONTROLLED TRANSIENT ELASTOGRAPHY (VCTE) LIVER ELASTOGRAPHY W/O IMAG W/I&R Maranda Castro APRN.REPORT CLERK [address] [place] [address] [address] Referral ID Status Reason Start Date Expiration Date Visits Requested Visits Authorized [id number] Authorized Auto-Generat ed Referral 08/13/2023 08/12/2024 1 1 T [facility] for referral (narrative)* Outpatient Procedure (Routine) - Closed Specialty Diagnoses / Procedures Referred By Contac t Referred To Contact [facility] Diagnoses Class 3 severe obesity due to excess calories with serious comorbidity and body mass index (BMI) of 40.0 to 44.9 in adult (HCC) Complications of gastric bypass surgery Procedures EGD BARIATRIC ESOPHAGOGASTRODUODENOSC OPY TRANSORAL DIAGNOSTIC Paci, Maranda Us APRN.CNP [phone] [place] [address] Referral ID Status Reason Start Date Expiration Date V isits Requested Visits Authorized [id number] Closed Auto-Generate d Referral 07/18/2023 07/17/2024 1 1 T [facility] for referral (narrative)* Outpatient Procedure (Routine) - New Request Specialty Diagnoses / Procedures Referred By Liliyaac t Referred To Contact [facility] Diagnoses Steatosis (HCC) Procedures DDI VIBRATION CONTROLLED TRANSIENT ELASTOGRAPHY (VCTE) LIVER ELASTOGRAPHY W/O IMAG W/I&R Micheal Thomas MD [address] [place] [address] [place] [address] Referral ID Status Reason Start Date Expiration Date Visits Requested Visits Authorized [id number] New Request Auto-Generat ed Referral 01/22/2024 01/21/2025 1 1 T [facility] for referral (narrative)* Outpatient Procedure (Routine) - Authorized Specialty Diagnoses / Procedures Referred By Contac t Referred To Contact [facility] Diagnoses Complications of gastric bypass surgery History of gastric bypass Hepatic steatosis Class 1 obesity due to excess calories with body mass index (BMI) of 33.0 to 33.9 in adult, unspecified whether serious comorbidity present Impaired intestinal absorption Procedures EGD BARIATRIC ESOPHAGOGASTRODUODENOSC OPY TRANSORAL DIAGNOSTIC Paci, Maranda Us APRN.CNP [address] [place] [address] [facility] [address] [place] [address] Referral ID Status Reason Start Date Expiration Date Visits Requested Visits Authorized [id number] Authorized Auto-Generat ed Referral 06/14/2024 06/14/2025 1 1 [facility] for visit Narrative* Outpatient Procedure (Routine) - Closed Specialty Diagnoses / Procedures Referred By Dwight quinn Referred To Contact [facility] Diagnoses Complications of bariatric procedures History of Armijo's esophagus Procedures EGD BARIATRIC ESOPHAGOGASTRODUODENOSC OPY TRANSORAL DIAGNOSTIC Paci, Maranda Us APRN.CNP [address] [place] [address] [facility] [address] [place] [address] Referral ID Status Reason Start Date Expiration Date V isits Requested Visits Authorized [id number] Closed Auto-Generate d Referral 03/06/2022 03/06/2023 1 1 [facility] for visit Narrative* Outpatient Procedure (Routine) - Closed Specialty Diagnoses / Procedures Referred By Dwight quinn Referred To Contact [facility] Diagnoses History of gastric bypass Vitamin D deficiency Complications of gastric bypass surgery Body mass index 40.0-44.9, adult (HCC) Hepatic steatosis Pre-op testing Procedures DDI VIBRATION CONTROLLED TRANSIENT ELASTOGRAPHY (VCTE) LIVER ELASTOGRAPHY W/O IMAG W/I&R PacMaranda pickett APRN.REPORT CLERK [address] [place] [address] [facility] [address] [place] [address] Referral ID Status Reason Start Date Expiration Date V isits Requested Visits Authorized [id number] Closed Auto-Generate d Referral 08/13/2023 08/12/2024 1 1 [facility] for visit Narrative* Outpatient Procedure (Routine) - Closed Specialty Diagnoses / Procedures Referred By Dwight Referred To Contact [facility] Diagnoses Class 3 severe obesity due to excess calories with serious comorbidity and body mass index (BMI) of 40.0 to 44.9 in adult (HCC) Complications of gastric bypass surgery Procedures EGD BARIATRIC ESOPHAGOGASTRODUODENOSC OPY TRANSORAL DIAGNOSTIC PacMaranda pickett APRN.REPORT CLERK [address] [place] [address] [facility] [address] [address] Referral ID Status Reason Start Date Expiration Date V isits Requested Visits Authorized [id number] Closed Auto-Generate d Referral 07/18/2023 07/17/2024 1 1 [facility] for visit Narrative* Outpatient Procedure (Routine) - Closed Specialty Diagnoses / Procedures Referred By Dwight quinn Referred To Contact [facility] Diagnoses Steatosis (HCC) Procedures DDI VIBRATION CONTROLLED TRANSIENT ELASTOGRAPHY (VCTE) LIVER ELASTOGRAPHY W/O IMAG W/I&R Micheal Thomas MD [address] [place] [address] Phone: tel: fax: [facility] [address] [address] Referral ID Status Reason Start Date Expiration Date V isits Requested Visits Authorized [id number] Closed Auto-Generate d Referral 01/22/2024 01/21/2025 1 1 [facility] for visit Narrative* Outpatient Procedure (Routine) - Closed Specialty Diagnoses / Procedures [facility] Diagnoses Complications of gastric bypass surgery History of gastric bypass Hepatic steatosis Class 1 obesity due to excess calories with body mass index (BMI) of 33.0 to 33.9 in adult, unspecified whether serious comorbidity present Impaired intestinal absorption Procedures EGD BARIATRIC ESOPHAGOGASTRODUODENOSC OPY TRANSORAL DIAGNOSTIC PacMaranda pickett APRN.REPORT CLERK [address] [place] [address] Phone: tel: fax: [facility] [address] [place] [address] Referral ID Status Reason Start Date Expiration Date V isits Requested Visits Authorized [id number] Closed Auto-Generate d Referral 06/14/2024 06/14/2025 1 1 [facility] Assessments Diagnosis Cellulitis of left breast Advance Directives No Advanced Directives Records FoundDocuments on File Type Date Recorded Patient Route Process Administrator Expl anation Advance Directives and Living Will Power of Deputy Chief Executive Documents on File Type Date Recorded Patient Route Process Administrator Expl anation Advance Directives and Living Will Documents on File Type Date Recorded Patient Route Process Administrator Expl anation Advance Directive(s) 06/30/2019 9:50 AM Advance Directive(s) 08/05/2017 1:58 PM Documents on File Type Date Recorded Patient Route Process Administrator Expl anation ACP-Advance Directive ACP-Power of Deputy Chief Executive Documents on File Type Date Recorded Patient Route Process Administrator Expl anation Advance Directive(s) 06/30/2019 9:50 AM Advance Directive(s) 08/05/2017 1:58 PM Advance Directive Response Recorded Date/ Time Advance Directives No November 04 14 6:55am Living Will No November 29, 2014 11:15pm Power of Deputy Chief Executive No November 29 5 11:15pm Advance Directive Response Recorded Date/ Time Advance Directives No November 04 14 5:55am Living Will No November 29, 2014 10:15pm Power of Deputy Chief Executive No November 29 5 10:15pm Date Activated Date Inactivated Comments 07/28/2024 6:10 PM Question Answer Comments Full Code Order Discussed With: Patient Date Activated Date Inactivated Comments 07/28/2024 6:10 PM 07/29/2024 6:15 PM Question Answer Comments Full Code Order Discussed With: Patient Date Activated Date Inactivated Comments 07/28/2024 6:10 PM 07/29/2024 6:15 PM Summary Purpose Family History No Family History Records Found Relationship Condition Age at Onset Recorded Date/T zach Not Specified Diabetes mellitus Unknown Cardiac disease Unknown Malignant neoplasm Unknown Hypertension Unknown Cerebrovascular accident (CVA) Unknown Reason for Referral Specialty Diagnoses / Procedures Referred By Contac t Referred To Contact Orthopedic Surgery Diagnoses Fracture of distal end of tibia with fibula, right, closed, initial encounter Lurdes Agustin MD [address] [place] [address] Referral ID Status Reason Start Date Expiration Date Visits Requested Visits Authorized [id number] Authorized Specialty Services Required/Pat satish's Best Interest 06/26/2021 06/26/2022 1 1 Specialty Diagnoses / Procedures Referred By Contac t Referred To Contact Diagnoses Class 3 severe obesity with serious comorbidity and body mass index (BMI) of 40.0 to 44.9 in adult, unspecified obesity type (HCC) Osteoarthritis of both knees, unspecified osteoarthritis type Polyarthralgia History of Abisai-en-Y gastric bypass Procedures CONSULT BARIATRIC/METABOLIC INSTITUTE OFFICE/OUTPATIENT [facility] 60-74 MINUTES Joana Carrera 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.REPORT CLERK [address] [place] [address] Referral ID Status Reason Start Date Expiration Date Visits Requested Visits Authorized [id number] Pending Review PCP Requested Referral 12/07/2021 12/07/2022 1 1 Specialty Diagnoses / Procedures Referred By Contac t Referred To Contact Diagnoses S/P gastric bypass Class 3 severe obesity due to excess calories without serious comorbidity with body mass index (BMI) of 40.0 to 44.9 in adult (HCC) Procedures CONSULT TO BARIATRIC NUTRITION OFFICE/OUTPATIENT [facility] 60-74 MINUTES Parveen Tobias 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.REPORT CLERK [address] [place] [address] Referral ID Status Reason Start Date Expiration Date Visits Requested Visits Authorized [id number] Pending Review PCP Requested Referral 02/15/2022 02/15/2023 1 1 Specialty Diagnoses / Procedures Referred By Contac t Referred To Contact General Surgery Diagnoses Encounter for screening for malignant neoplasm of colon Procedures CONSULT TO GENERAL SURGERY OFFICE/OUTPATIENT [facility] 60-74 MINUTES Ana M Sotelo, 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.REPORT CLERK [address] [place] [address] Referral ID Status Reason Start Date Expiration Date Visits Requested Visits Authorized [id number] Authorized PCP Requested Referral 12/09/2022 12/09/2023 1 1 Specialty Diagnoses / Procedures Referred By Contac t Referred To Contact Maranda Castro 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.REPORT CLERK [address] [place] [address] Referral ID Status Reason Start Date Expiration Date V isits Requested Visits Authorized [id number] Pending Review 1 1 Chief Complaint and Reason for Visit Chief Complaint SCREENING Additional Source Comments <item> Privacy Markings (unrecogniz ed section and content) Section Author: Martha Felix PROHIBITION ON REDISCLOSURE OF CONFIDENTIAL INFORMATION This notice accompanies a disclosure of information concerning a client made to you with the consent of such client. INFORMATION SOURCE (unrecogn ized section and content) DATE CREATED AUTHOR 02/17/2021 [facility] DATE CREATED AUTHOR AUTHOR'S ORGANIZ ATION 04/07/2021 [facility] DATE CREATED AUTHOR AUTHOR'S ORGANIZ ATION 06/30/2021 [facility] DATE CREATED AUTHOR AUTHOR'S ORGANIZ ATION 10/17/2021 [facility] DATE CREATED AUTHOR AUTHOR'S ORGANIZ ATION 03/03/2022 [facility] DATE CREATED AUTHOR AUTHOR'S ORGANIZ ATION 11/25/2023 [facility] DATE CREATED AUTHOR AUTHOR'S ORGANIZ ATION 08/04/2024 [facility] DATE CREATED AUTHOR AUTHOR'S ORGANIZ ATION 10/28/2024 [facility] DATE CREATED AUTHOR AUTHOR'S ORGANIZ ATION 11/09/2024 [facility] DATE CREATED AUTHOR AUTHOR'S ORGANIZ ATION 12/28/2024 [facility] DATE CREATED AUTHOR AUTHOR'S ORGANIZ ATION 01/07/2025 [facility] Reason for Visit (unrecogniz ed section and content) Reason Comments Physical Therapy PT Discharge Specialty Diagnoses / Procedures Referred By Contac t Referred To Contact Physical Therapy / PHYSICAL THERAPY Diagnoses ankle fx right Procedures NEW RS PT ORTH K Alexis Hurley [address] [place] [address] Monique Avila, PT [address] [place] [address] Referral ID Status Reason Start Date Expiration Date Visits Re quested Visits Authorized [id number] Closed 08/07/2021 09/25/2021 12 12 Reason Comments Physical Therapy Referral ID Status Reason Start Date Expiration Date V isits Requested Visits Authorized [id number] Authorized 08/07/2021 09/25/2021 12 12 Reason Comments Physical Therapy PT Progress Note Referral ID Status Reason Start Date Expiration Date V isits Requested Visits Authorized [id number] Authorized 08/07/2021 09/10/2021 12 12 Reason Comments Ankle Injury Pt fell today while walking to her office, twisted Right ankle Reason Comments PT Eval Reason Comments Yearly Exam Reason Comments Weight Management Reason Comments New Patient Obesity Reason Comments Assessment Patient Education Reason Comments COMPLICATIONS OF BARIATRIC PROCEDURE Obesity Barretts Esophagus Reason Comments Refill Request Reason Comments Appointment Reason Comments Patient Update Reason Comments Complications of bariatric surgery Reason Onset Date Comments form 06/12/2022 Reason Comments Med Refill Reason Onset Date Comments Other 2022 Coding wrong on pt bill Reason Comments Well Woman Reason Comments Consult colonoscopy Specialty Diagnoses / Procedures Referred By Dwight t Referred To Contact General Surgery Diagnoses Encounter for screening for malignant neoplasm of colon Procedures CONSULT TO GENERAL SURGERY OFFICE/OUTPATIENT NEW HIGH MDM 60-74 MINUTES Ana M Sotelo APRN.REPORT CLERK [address] [place] [address] Referral ID Status Reason Start Date Expiration Date V isits Requested Visits Authorized [id number] Closed PCP Requested Referral 12/09/2022 12/09/2023 1 1 Reason Comments Complications of bariatric surgery Reason Comments Reassessment Patient Education Reason Onset Date Comments Med Refill 05/20/2023 Reason Comments Annual Exam Pt is here today for a Physical, f/b Gynecology Tailbone Pain Chronic lower back p ain, has seen a Chiropractor in the past. Also having bilateral groin pain. Reason Onset Date Comments Med Refill 09/25/2023 Reason Comments Nutrition Assessment Reason Comments Established Patient Reason Comments Patient Education Reassessment Reason Comments Weight Management Reason Comments Med Change Request Reason Comments Well Woman Reason Comments Radiology Mammogram Reason Comments Follow Up Reason Comments Obesity Reason Onset Date Comments Med Refill 02/09/2024 Reason Comments Annual Exam Labs 12/14/20. Patient is fasting today. Wants order for colonoscopy. Reason Comments Ear Fullness Melissa Nichols is here t susana for bilateral ear fullness x1 month, patient reports no pain or drng. Reason Onset Date Comments Care Coordination 07/04/2022 Reason Onset Date Comments Med Refill 04/29/2024 Reason Comments Annual Exam CPE. Recently had la bs done through the [facility], you can see these in chart. Reason Comments Established Patient pre [facility] 07/28 Reason Comments Medication Authorization Reason Onset Date Comments Med Refill 08/02/2024 Reason Comments Screening mammogram Care Teams (unrecognized sec tion and content) Passenger T[employer] Inspector Relationship Specialty Start Date End Date Demetri Arnold MD [address] [place] [address] PCP - General Family Medicine 06/26/21 Passenger Tire Inspector Relationship Specialty Start Date End Date Demetri Arnold DO PCP - General Family Practice 08/05/17 Passenger Tire Inspector Relationship Specialty Start Date End Date Demetri Arnold DO PCP - General Family Practice 08/05/17 Passenger Tire Inspector Relationship Specialty Start Date End Date Demetri Arnold, DO PCP - General Family Practice 08/05/17 Passenger Tire Inspector Relationship Specialty Start Date End Date Demetri Arnold, DO PCP - General Family Practice 08/05/17 Passenger Tire Inspector Relationship Specialty Start Date End Date Demetri Arnold DO PCP - General Family Practice 08/05/17 Passenger Tire Inspector Relationship Specialty Start Date End Date Demetri Arnold DO PCP - General Family Practice 08/05/17 Passenger Tire Inspector Relationship Specialty Start Date End Date Demetri Arnold, DO PCP - General Family Practice 08/05/17 Passenger Tire Inspector Relationship Specialty Start Date End Date Demetri Arnold MD [address] [facility] [place] [address] PCP - General Family Medicine 08/05/17 Passenger Tire Inspector Relationship Specialty Start Date End Date Demetri Arnold, DO PCP - General Family Practice 08/05/17 Passenger Tire Inspector Relationship Specialty Start Date End Date Demetri Arnold, DO PCP - General Family Medicine 08/05/17 Passenger Tire Inspector Relationship Specialty Start Date End Date Demetri Arnold, DO PCP - General Family Medicine 08/05/17 Passenger Tire Inspector Relationship Specialty Start Date End Date Demetri Arnold, DO PCP - General Family Medicine 08/05/17 Passenger Tire Inspector Relationship Specialty Start Date End Date Demetri Arnold, DO PCP - General Family Medicine 08/05/17 Passenger Tire Inspector Relationship Specialty Start Date End Date Demetri Arnold, DO PCP - General Family Medicine 08/05/17 Passenger Tire Inspector Relationship Specialty Start Date End Date Demetri Arnold, DO PCP - General Family Medicine 08/05/17 Passenger Tire Inspector Relationship Specialty Start Date End Date Demetri Arnold, DO PCP - General Family Medicine 08/05/17 Passenger Tire Inspector Relationship Specialty Start Date End Date Demetri Arnold DO PCP - General Family Medicine 08/05/17 Passenger Tire Inspector Relationship Specialty Start Date End Date Demetri Arnold MD [address] [place] [address] PCP - General 08/05/17 07/04/22 Manish Vazquez MD [address] [place] [address] PCP - General Internal Medicine 07/05/22 Passenger Tire Inspector Relationship Specialty Start Date End Date Manish Vazquez MD [address] [place] [address] PCP - General Internal Medicine 07/05/22 Passenger Tire Inspector Relationship Specialty Start Date End Date Demetri Arnold DO PCP - General Family Medicine 08/05/17 Passenger Tire Inspector Relationship Specialty Start Date End Date Manish Vazquez MD [address] [place] [address] PCP - General Internal Medicine 07/05/22 Passenger Tire Inspector Relationship Specialty Start Date End Date Demetri Arnold DO PCP - General Family Medicine 08/05/17 Passenger Tire Inspector Relationship Specialty Start Date End Date Demetri Arnold DO PCP - General Family Medicine 08/05/17 Passenger Tire Inspector Relationship Specialty Start Date End Date Demetri Arnold DO PCP - General Family Medicine 08/05/17 Team Status: Active Member Role Status Dates Dr. Demetri Arnold MD Family Provider Active Dr. Demetri Arnold MD Primary Care Provider Active Team Status: Inactive Member Role Status Dates Dr. Demetri Arnold MD Primary Care Provider Active Ana M Sotelo NP, [employer] Attending Provider, Shane robins Active Passenger T[employer] Inspector Relationship Specialty Start Date End Date Demetri Arnold DO PCP - General Family Medicine 08/05/17 Passenger Tire Inspector Relationship Specialty Start Date End Date Manish Vazquez MD [address] [place] [address] [place] [address] PCP - General Internal Medicine 07/05/22 Passenger Tire Inspector Relationship Specialty Start Date End Date Demetri Arnold PCP - General Family Medicine 08/05/17 Passenger Tire Inspector Relationship Specialty Start Date End Date Demetri ArnoldDO PCP - General Family Medicine 08/05/17 Passenger Tire Inspector Relationship Specialty Start Date End Date Demetri ArnoldDO PCP - General Family Medicine 08/05/17 Passenger Tire Inspector Relationship Specialty Start Date End Date Manish Vazquez MD [address] [place] [address] [place] [address] PCP - General Internal Medicine 07/05/22 Passenger Tire Inspector Relationship Specialty Start Date End Date Manish Vazquez MD [address] [place] [address] [place] [address] PCP - General Internal Medicine 07/05/22 Passenger Tire Inspector Relationship Specialty Start Date End Date Manish Vazquez MD [address] [place] [address] [place] [address] PCP - General Internal Medicine 07/05/22 Passenger Tire Inspector Relationship Specialty Start Date End Date Manish Vazquez MD [address] [place] [address] [place] [address] PCP - General Internal Medicine 07/05/22 Passenger Tire Inspector Relationship Specialty Start Date End Date Demetri Arnold DO PCP - General Family Medicine 08/05/17 Passenger Tire Inspector Relationship Specialty Start Date End Date Demetri Arnold DO PCP - General Family Medicine 08/05/17 Passenger Tire Inspector Relationship Specialty Start Date End Date Manish Vazquez MD [address] [place] [address] [place] [address] PCP - General Internal Medicine 07/05/22 Passenger Tire Inspector Relationship Specialty Start Date End Date Demetri Arnold DO PCP - General Family Medicine 08/05/17 Passenger Tire Inspector Relationship Specialty Start Date End Date Demetri Arnold DO PCP - General Family Medicine 08/05/17 Passenger Tire Inspector Relationship Specialty Start Date End Date Demetri Arnold DO PCP - General Family Medicine 08/05/17 Passenger Tire Inspector Relationship Specialty Start Date End Date Demetri Arnold DO PCP - General Family Medicine 08/05/17 Passenger Tire Inspector Relationship Specialty Start Date End Date Demetri Arnold DO PCP - General Family Medicine 08/05/17 Passenger Tire Inspector Relationship Specialty Start Date End Date Demetri Arnold DO PCP - General Family Medicine 08/05/17 Passenger Tire Inspector Relationship Specialty Start Date End Date Demetri Arnold DO PCP - General Family Medicine 08/05/17 Passenger Tire Inspector Relationship Specialty Start Date End Date eDmetri Arnold DO PCP - General Family Medicine 08/05/17 Passenger Tire Inspector Relationship Specialty Start Date End Date Demetri Arnold DO PCP - General Family Medicine 08/05/17 Passenger Tire Inspector Relationship Specialty Start Date End Date Demetri Arnold DO PCP - General Family Medicine 08/05/17 Passenger Tire Inspector Relationship Specialty Start Date End Date Demetri Arnold DO PCP - General Family Medicine 08/05/17 Passenger Tire Inspector Relationship Specialty Start Date End Date Demetri Arnold MD [address] [place], [place] [phone] PCP - General 08/05/17 Passenger Tire Inspector Relationship Specialty Start Date End Date Demetri Arnold MD [address] [place], [place] [id number] PCP - General 08/05/17 Passenger Tire Inspector Relationship Specialty Start Date End Date Demetri Arnold MD [address] [place] [address] [place] [address] PCP - General 08/05/17 07/04/22 Manish Vazquez MD [address] [place] [address] [place] [address] PCP - General Internal Medicine 07/05/22 Passenger Tire Inspector Relationship Specialty Start Date End Date System, [employer] [address] [place] [address] [phone] PCP - General 03/12/24 Passenger Tire Inspector Relationship Specialty Start Date End Date Demetri Arnold DO PCP - General Family Medicine 08/05/17 Passenger Tire Inspector Relationship Specialty Start Date End Date [facility] [address] [place] [phone] PCP - General 03/12/24 Passenger Tire Inspector Relationship Specialty Start Date End Date Demetri Arnold DO PCP - General Family Medicine 08/05/17 Passenger Tire Inspector Relationship Specialty Start Date End Date Demetri Arnold DO PCP - General Family Medicine 08/05/17 Passenger Tire Inspector Relationship Specialty Start Date End Date Demetri Arnold MD [address] [place] [place] [address] PCP - General Family Medicine 06/10/24 Passenger Tire Inspector Relationship Specialty Start Date End Date Demetri Arnold DO PCP - General Family Medicine 08/05/17 Passenger Tire Inspector Relationship Specialty Start Date End Date Demetri Arnold DO PCP - General Family Medicine 08/05/17 Passenger Tire Inspector Relationship Specialty Start Date End Date Demetri Arnold DO PCP - General Family Medicine 08/05/17 Passenger Tire Inspector Relationship Specialty Start Date End Date Demetri Arnold MD [address] [place] [address] PCP - General Family Medicine 06/10/24 Passenger Tire Inspector Relationship Specialty Start Date End Date Demetri Arnold DO PCP - General Family Medicine 08/05/17 Passenger Tire Inspector Relationship Specialty Start Date End Date Demetri Arnold DO PCP - General Family Medicine 08/05/17 Source Comments (unrecognize d section and content) In the event this informatio n is protected by the Federal Confidentiality of Alcohol and Drug Abuse Patient Records regulations: The Federal rules restrict any use of the information to criminally investigate or prosecute any alcohol or drug abuse patient.[facility] the event this information is protected by the Federal Confidentiality of Alcohol and Drug Abuse Patient Records regulations: The Federal rules restrict any use of the information to criminally investigate or prosecute any alcohol or drug abuse patient.[facility] HospitalIn the event this information is protected by the Federal Confidentiality of Alcohol and Drug Abuse Patient Records regulations: The Federal rules restrict any use of the information to criminally investigate or prosecute any alcohol or drug abuse patient.[facility] HospitalIn the event this information is protected by the Federal Confidentiality of Alcohol and Drug Abuse Patient Records regulations: The Federal rules restrict any use of the information to criminally investigate or prosecute any alcohol or drug abuse patient.[facility] HospitalIn the event this information is protected by the Federal Confidentiality of Alcohol and Drug Abuse Patient Records regulations: The Federal rules restrict any use of the information to criminally investigate or prosecute any alcohol or drug abuse patient.[facility] HospitalIn the event this information is protected by the Federal Confidentiality of Alcohol and Drug Abuse Patient Records regulations: The Federal rules restrict any use of the information to criminally investigate or prosecute any alcohol or drug abuse patient.[facility] HospitalIn the event this information is protected by the Federal Confidentiality of Alcohol and Drug Abuse Patient Records regulations: The Federal rules restrict any use of the information to criminally investigate or prosecute any alcohol or drug abuse patient.[facility] HospitalIn the event this information is protected by the Federal Confidentiality of Alcohol and Drug Abuse Patient Records regulations: The Federal rules restrict any use of the information to criminally investigate or prosecute any alcohol or drug abuse patient.[facility] HospitalIn the event this information is protected by the Federal Confidentiality of Alcohol and Drug Abuse Patient Records regulations: The Federal rules restrict any use of the information to criminally investigate or prosecute any alcohol or drug abuse patient.[facility] HospitalIn the event this information is protected by the Federal Confidentiality of Alcohol and Drug Abuse Patient Records regulations: The Federal rules restrict any use of the information to criminally investigate or prosecute any alcohol or drug abuse patient.[facility] HospitalIn the event this information is protected by the Federal Confidentiality of Alcohol and Drug Abuse Patient Records regulations: The Federal rules restrict any use of the information to criminally investigate or prosecute any alcohol or drug abuse patient.[facility] HospitalIn the event this information is protected by the Federal Confidentiality of Alcohol and Drug Abuse Patient Records regulations: The Federal rules restrict any use of the information to criminally investigate or prosecute any alcohol or drug abuse patient.[facility] HospitalIn the event this information is protected by the Federal Confidentiality of Alcohol and Drug Abuse Patient Records regulations: The Federal rules restrict any use of the information to criminally investigate or prosecute any alcohol or drug abuse patient.[facility] HospitalIn the event this information is protected by the Federal Confidentiality of Alcohol and Drug Abuse Patient Records regulations: The Federal rules restrict any use of the information to criminally investigate or prosecute any alcohol or drug abuse patient.[facility] HospitalIn the event this information is protected by the Federal Confidentiality of Alcohol and Drug Abuse Patient Records regulations: The Federal rules restrict any use of the information to criminally investigate or prosecute any alcohol or drug abuse patient.[facility] HospitalIn the event this information is protected by the Federal Confidentiality of Alcohol and Drug Abuse Patient Records regulations: The Federal rules restrict any use of the information to criminally investigate or prosecute any alcohol or drug abuse patient.[facility] HospitalIn the event this information is protected by the Federal Confidentiality of Alcohol and Drug Abuse Patient Records regulations: The Federal rules restrict any use of the information to criminally investigate or prosecute any alcohol or drug abuse patient.[facility] HospitalIn the event this information is protected by the Federal Confidentiality of Alcohol and Drug Abuse Patient Records regulations: The Federal rules restrict any use of the information to criminally investigate or prosecute any alcohol or drug abuse patient.[facility] HospitalIn the event this information is protected by the Federal Confidentiality of Alcohol and Drug Abuse Patient Records regulations: The Federal rules restrict any use of the information to criminally investigate or prosecute any alcohol or drug abuse patient.[facility] HospitalIn the event this information is protected by the Federal Confidentiality of Alcohol and Drug Abuse Patient Records regulations: The Federal rules restrict any use of the information to criminally investigate or prosecute any alcohol or drug abuse patient.[facility] HospitalIn the event this information is protected by the Federal Confidentiality of Alcohol and Drug Abuse Patient Records regulations: The Federal rules restrict any use of the information to criminally investigate or prosecute any alcohol or drug abuse patient.[facility] HospitalIn the event this information is protected by the Federal Confidentiality of Alcohol and Drug Abuse Patient Records regulations: The Federal rules restrict any use of the information to criminally investigate or prosecute any alcohol or drug abuse patient.[facility] HospitalIn the event this information is protected by the Federal Confidentiality of Alcohol and Drug Abuse Patient Records regulations: The Federal rules restrict any use of the information to criminally investigate or prosecute any alcohol or drug abuse patient.[facility] HospitalIn the event this information is protected by the Federal Confidentiality of Alcohol and Drug Abuse Patient Records regulations: The Federal rules restrict any use of the information to criminally investigate or prosecute any alcohol or drug abuse patient.[facility] HospitalIn the event this information is protected by the Federal Confidentiality of Alcohol and Drug Abuse Patient Records regulations: The Federal rules restrict any use of the information to criminally investigate or prosecute any alcohol or drug abuse patient.[facility] HospitalIn the event this information is protected by the Federal Confidentiality of Alcohol and Drug Abuse Patient Records regulations: The Federal rules restrict any use of the information to criminally investigate or prosecute any alcohol or drug abuse patient.[facility] HospitalIn the event this information is protected by the Federal Confidentiality of Alcohol and Drug Abuse Patient Records regulations: The Federal rules restrict any use of the information to criminally investigate or prosecute any alcohol or drug abuse patient.[facility] HospitalIn the event this information is protected by the Federal Confidentiality of Alcohol and Drug Abuse Patient Records regulations: The Federal rules restrict any use of the information to criminally investigate or prosecute any alcohol or drug abuse patient.[facility] HospitalIn the event this information is protected by the Federal Confidentiality of Alcohol and Drug Abuse Patient Records regulations: The Federal rules restrict any use of the information to criminally investigate or prosecute any alcohol or drug abuse patient.[facility] HospitalIn the event this information is protected by the Federal Confidentiality of Alcohol and Drug Abuse Patient Records regulations: The Federal rules restrict any use of the information to criminally investigate or prosecute any alcohol or drug abuse patient.[facility] HospitalIn the event this information is protected by the Federal Confidentiality of Alcohol and Drug Abuse Patient Records regulations: The Federal rules restrict any use of the information to criminally investigate or prosecute any alcohol or drug abuse patient.[facility] HospitalIn the event this information is protected by the Federal Confidentiality of Alcohol and Drug Abuse Patient Records regulations: The Federal rules restrict any use of the information to criminally investigate or prosecute any alcohol or drug abuse patient.[facility] HospitalIn the event this information is protected by the Federal Confidentiality of Alcohol and Drug Abuse Patient Records regulations: The Federal rules restrict any use of the information to criminally investigate or prosecute any alcohol or drug abuse patient.[facility] HospitalIn the event this information is protected by the Federal Confidentiality of Alcohol and Drug Abuse Patient Records regulations: The Federal rules restrict any use of the information to criminally investigate or prosecute any alcohol or drug abuse patient.[facility] HospitalIn the event this information is protected by the Federal Confidentiality of Alcohol and Drug Abuse Patient Records regulations: The Federal rules restrict any use of the information to criminally investigate or prosecute any alcohol or drug abuse patient.[facility] HospitalIn the event this information is protected by the Federal Confidentiality of Alcohol and Drug Abuse Patient Records regulations: The Federal rules restrict any use of the information to criminally investigate or prosecute any alcohol or drug abuse patient.[facility] HospitalIn the event this information is protected by the Federal Confidentiality of Alcohol and Drug Abuse Patient Records regulations: The Federal rules restrict any use of the information to criminally investigate or prosecute any alcohol or drug abuse patient.[facility] HospitalIn the event this information is protected by the Federal Confidentiality of Alcohol and Drug Abuse Patient Records regulations: The Federal rules restrict any use of the information to criminally investigate or prosecute any alcohol or drug abuse patient.[facility] HospitalIn the event this information is protected by the Federal Confidentiality of Alcohol and Drug Abuse Patient Records regulations: The Federal rules restrict any use of the information to criminally investigate or prosecute any alcohol or drug abuse patient.[facility] HospitalIn the event this information is protected by the Federal Confidentiality of Alcohol and Drug Abuse Patient Records regulations: The Federal rules restrict any use of the information to criminally investigate or prosecute any alcohol or drug abuse patient.[facility] HospitalIn the event this information is protected by the Federal Confidentiality of Alcohol and Drug Abuse Patient Records regulations: The Federal rules restrict any use of the information to criminally investigate or prosecute any alcohol or drug abuse patient.[facility] HospitalIn the event this information is protected by the Federal Confidentiality of Alcohol and Drug Abuse Patient Records regulations: The Federal rules restrict any use of the information to criminally investigate or prosecute any alcohol or drug abuse patient.[facility] HospitalIn the event this information is protected by the Federal Confidentiality of Alcohol and Drug Abuse Patient Records regulations: The Federal rules restrict any use of the information to criminally investigate or prosecute any alcohol or drug abuse patient.[facility] HospitalIn the event this information is protected by the Federal Confidentiality of Alcohol and Drug Abuse Patient Records regulations: The Federal rules restrict any use of the information to criminally investigate or prosecute any alcohol or drug abuse patient.[facility] HospitalIn the event this information is protected by the Federal Confidentiality of Alcohol and Drug Abuse Patient Records regulations: The Federal rules restrict any use of the information to criminally investigate or prosecute any alcohol or drug abuse patient.[facility] HospitalIn the event this information is protected by the Federal Confidentiality of Alcohol and Drug Abuse Patient Records regulations: The Federal rules restrict any use of the information to criminally investigate or prosecute any alcohol or drug abuse patient.[facility] HospitalIn the event this information is protected by the Federal Confidentiality of Alcohol and Drug Abuse Patient Records regulations: The Federal rules restrict any use of the information to criminally investigate or prosecute any alcohol or drug abuse patient.[facility] HospitalIn the event this information is protected by the Federal Confidentiality of Alcohol and Drug Abuse Patient Records regulations: The Federal rules restrict any use of the information to criminally investigate or prosecute any alcohol or drug abuse patient.[facility] HospitalIn the event this information is protected by the Federal Confidentiality of Alcohol and Drug Abuse Patient Records regulations: The Federal rules restrict any use of the information to criminally investigate or prosecute any alcohol or drug abuse patient.[facility] HospitalIn the event this information is protected by the Federal Confidentiality of Alcohol and Drug Abuse Patient Records regulations: The Federal rules restrict any use of the information to criminally investigate or prosecute any alcohol or drug abuse patient.[facility] HospitalIn the event this information is protected by the Federal Confidentiality of Alcohol and Drug Abuse Patient Records regulations: The Federal rules restrict any use of the information to criminally investigate or prosecute any alcohol or drug abuse patient.[facility] HospitalIn the event this information is protected by the Federal Confidentiality of Alcohol and Drug Abuse Patient Records regulations: The Federal rules restrict any use of the information to criminally investigate or prosecute any alcohol or drug abuse patient.[facility] HospitalIn the event this information is protected by the Federal Confidentiality of Alcohol and Drug Abuse Patient Records regulations: The Federal rules restrict any use of the information to criminally investigate or prosecute any alcohol or drug abuse patient.[facility] HospitalIn the event this information is protected by the Federal Confidentiality of Alcohol and Drug Abuse Patient Records regulations: The Federal rules restrict any use of the information to criminally investigate or prosecute any alcohol or drug abuse patient.[facility] HospitalIn the event this information is protected by the Federal Confidentiality of Alcohol and Drug Abuse Patient Records regulations: The Federal rules restrict any use of the information to criminally investigate or prosecute any alcohol or drug abuse patient.[facility] HospitalIn the event this information is protected by the Federal Confidentiality of Alcohol and Drug Abuse Patient Records regulations: The Federal rules restrict any use of the information to criminally investigate or prosecute any alcohol or drug abuse patient.[facility] HospitalIn the event this information is protected by the Federal Confidentiality of Alcohol and Drug Abuse Patient Records regulations: The Federal rules restrict any use of the information to criminally investigate or prosecute any alcohol or drug abuse patient.[facility] HospitalIn the event this information is protected by the Federal Confidentiality of Alcohol and Drug Abuse Patient Records regulations: The Federal rules restrict any use of the information to criminally investigate or prosecute any alcohol or drug abuse patient.[facility] HospitalIn the event this information is protected by the Federal Confidentiality of Alcohol and Drug Abuse Patient Records regulations: The Federal rules restrict any use of the information to criminally investigate or prosecute any alcohol or drug abuse patient.[facility] HospitalIn the event this information is protected by the Federal Confidentiality of Alcohol and Drug Abuse Patient Records regulations: The Federal rules restrict any use of the information to criminally investigate or prosecute any alcohol or drug abuse patient.[facility] HospitalIn the event this information is protected by the Federal Confidentiality of Alcohol and Drug Abuse Patient Records regulations: The Federal rules restrict any use of the information to criminally investigate or prosecute any alcohol or drug abuse patient.[facility] HospitalIn the event this information is protected by the Federal Confidentiality of Alcohol and Drug Abuse Patient Records regulations: The Federal rules restrict any use of the information to criminally investigate or prosecute any alcohol or drug abuse patient.[facility] HospitalIn the event this information is protected by the Federal Confidentiality of Alcohol and Drug Abuse Patient Records regulations: The Federal rules restrict any use of the information to criminally investigate or prosecute any alcohol or drug abuse patient.[facility] HospitalIn the event this information is protected by the Federal Confidentiality of Alcohol and Drug Abuse Patient Records regulations: The Federal rules restrict any use of the information to criminally investigate or prosecute any alcohol or drug abuse patient.[facility] HospitalIn the event this information is protected by the Federal Confidentiality of Alcohol and Drug Abuse Patient Records regulations: The Federal rules restrict any use of the information to criminally investigate or prosecute any alcohol or drug abuse patient.[facility] HospitalIn the event this information is protected by the Federal Confidentiality of Alcohol and Drug Abuse Patient Records regulations: The Federal rules restrict any use of the information to criminally investigate or prosecute any alcohol or drug abuse patient.[facility] HospitalIn the event this information is protected by the Federal Confidentiality of Alcohol and Drug Abuse Patient Records regulations: The Federal rules restrict any use of the information to criminally investigate or prosecute any alcohol or drug abuse patient.[facility] HospitalIn the event this information is protected by the Federal Confidentiality of Alcohol and Drug Abuse Patient Records regulations: The Federal rules restrict any use of the information to criminally investigate or prosecute any alcohol or drug abuse patient.[facility] HospitalIn the event this information is protected by the Federal Confidentiality of Alcohol and Drug Abuse Patient Records regulations: The Federal rules restrict any use of the information to criminally investigate or prosecute any alcohol or drug abuse patient.[facility] HospitalIn the event this information is protected by the Federal Confidentiality of Alcohol and Drug Abuse Patient Records regulations: The Federal rules restrict any use of the information to criminally investigate or prosecute any alcohol or drug abuse patient.[facility] HospitalIn the event this information is protected by the Federal Confidentiality of Alcohol and Drug Abuse Patient Records regulations: The Federal rules restrict any use of the information to criminally investigate or prosecute any alcohol or drug abuse patient.[facility] HospitalIn the event this information is protected by the Federal Confidentiality of Alcohol and Drug Abuse Patient Records regulations: The Federal rules restrict any use of the information to criminally investigate or prosecute any alcohol or drug abuse patient.[facility] HospitalIn the event this information is protected by the Federal Confidentiality of Alcohol and Drug Abuse Patient Records regulations: The Federal rules restrict any use of the information to criminally investigate or prosecute any alcohol or drug abuse patient.[facility] HospitalIn the event this information is protected by the Federal Confidentiality of Alcohol and Drug Abuse Patient Records regulations: The Federal rules restrict any use of the information to criminally investigate or prosecute any alcohol or drug abuse patient.[facility] HospitalIn the event this information is protected by the Federal Confidentiality of Alcohol and Drug Abuse Patient Records regulations: The Federal rules restrict any use of the information to criminally investigate or prosecute any alcohol or drug abuse patient.[facility] HospitalIn the event this information is protected by the Federal Confidentiality of Alcohol and Drug Abuse Patient Records regulations: The Federal rules restrict any use of the information to criminally investigate or prosecute any alcohol or drug abuse patient.[facility] HospitalIn the event this information is protected by the Federal Confidentiality of Alcohol and Drug Abuse Patient Records regulations: The Federal rules restrict any use of the information to criminally investigate or prosecute any alcohol or drug abuse patient.[facility] HospitalIn the event this information is protected by the Federal Confidentiality of Alcohol and Drug Abuse Patient Records regulations: The Federal rules restrict any use of the information to criminally investigate or prosecute any alcohol or drug abuse patient.[facility] Goals (unrecognized section and content) Goals may be documented in a n alternate sectionGoals may be documented in an alternate sectionGoals may be documented in an alternate sectionGoals may be documented in an alternate section FOR RECORDS PERTAINING TO PATIENTS WHO ARE OR HAVE BEEN ENROLLED IN A CHEMICAL DEPENDENCY/SUBSTANCEABUSE PROGRAM, SOME INFORMATION MAY BE OMITTED. This clinical summary was aggregated from multiple sources. Caution should be exercised in using it in the provision of clinical care. This summary normalizes information from multiple sources, and as a consequence, information in this document may materially change the coding, format and clinical context of patient data. In addition, data may be omitted in some cases. CLINICAL DECISIONS SHOULD BE BASED ON THE PRIMARY CLINICAL RECORDS. [facility] [employer] [facility]. provides no warranty or guarantee of the accuracy or completeness of information in this document.
== END | disposition home or self-care (01) ==
LOC: OPBI 07:33
PROVIDERS: PCP Family Medicine; Referring Provider Nurse Practitioner Family; Visit Provider Nurse Practitioner Family
DX: Z12.31 Encounter for screening mammogram for malignant neoplasm of breast (principal)
CPT/HCPCS: 77063; 77067